=== PATIENT | female | born 1960 | race Caucasian/White ===

== ENCOUNTER → 2017-03-31 | Outpatient (CLI) | payer MEDICARE ==
[~2017-03-31] MED LIST: AZITHROMYCIN500 MG; CARVEDILOL12.5 MG PO; CRESTOR20 MG PO; HUMALOG100 UNIT/3 SC; HYDRALAZINE HCL25 MG PO; LASIX20 MG PO; LEVAQUIN500 MG PO; LEVEMIR100 UNIT/1 SC; LEVEMIR100 UNIT/1 SQ; LEXAPRO10 MG PO; LEXAPRO20 MG PO; LISINOPRIL10 MG PO; METFORMIN HCL1000 MG PO; OTHER BP MED; PREDNISONE20 MG PO; PROAIR HFA INH8.5 GM IH; RANITIDINE HCL75 MG PO
[2017-03-31 14:26] LABS: BASOPHILS % 0.6 % (0.0-1.0); EOSINOPHILS # (AUTO) 0.3 (0.0-0.4); EOSINOPHILS % 4.7 % (0.0-6.0); LYMPHOCYTES # (AUTO) 2.3 (1.0-3.2); LYMPHOCYTES % 35.6 % (18.0-39.1); MEAN CORPUSCULAR HEMOGLOBIN 31.9 pg (28-32); MEAN CORPUSCULAR HGB CONC 34.4 g/dL (31-35); MEAN CORPUSCULAR VOLUME 92.8 fL (81-99); MONOCYTES # (AUTO) 0.8 (0.2-0.8); MONOCYTES % 13.1 % (4.4-11.3); NEUTROPHILS # (AUTO) 2.9 (2.1-6.9); NEUTROPHILS % 45.5 % (38.7-80.0); PLATELET COUNT 267 x10e3/uL (140-360); RED BLOOD COUNT 3.45 x10e6/uL (3.6-5.1); RED CELL DISTRIBUTION WIDTH 13.5 % (11.7-14.4)
[2017-03-31 14:39] LABS: ANION GAP 14.8 mmol/L (8-16); CALCIUM 9.1 mg/dL (8.4-10.2); CREATININE, SERUM 5.19 mg/dL (0.57-1.11); POTASSIUM 3.8 mmol/L (3.5-5.1)
== END ==
LOC: DX 11:39 → EDSTATUS 04-02 07:30
PROVIDERS: ATTEND Surgery
DX: Z01.818 Encounter for other preprocedural examination (principal); Z53.8 Procedure and treatment not carried out for other reasons; C18.2 Malignant neoplasm of ascending colon; N19 Unspecified kidney failure
CPT/HCPCS: 36415; 80048; 85025; 93005

== ENCOUNTER 2017-04-23 06:15 | Inpatient (IN) | payer MEDICARE ==
--- NOTE | 2017-04-22 11:15 | Diagnostic Imaging Report ---
PROCEDURE:CHEST 2 VIEWS TECHNIQUE:PA and lateral chest INDICATION:Preoperative evaluation COMPARISON:None. FINDINGS: Right internal jugular dialysis catheter with tips in the low SVC. Bilateral lower lobe interstitial scar. Lungs otherwise clear. No pleural effusions. Normal heart size, mediastinal contour, and pulmonary vasculature. Intact skeleton. CONCLUSION: No acute abnormality. Dictated by: Juan A Sheets M.D. on 04/22/2017 at 11:15 Electronically approved by: Juan A Sheets M.D. on 04/22/2017 at 11:15
[~2017-04-23] VITALS: Ht 165.1 cm; Wt 83.5 kg
[2017-04-23] VITALS (7 sets, daily range): BP systolic 115–135; BP diastolic 56–64
--- OUTSIDE RECORDS SUMMARY | 2017-04-23 06:18 | XMS REPORT ---
Author Author [facility] Address Unknown Phone Unavailable Care Team Providers Care Costume Shop Coordinator Name Role Phone NATALIE RAY Unavailable Unavailable TSANGBRENDAN Unavailable Unavailable Problems This patient has no known problems. Allergies, Adverse Reactions, Alerts This patient has no known allergies or adverse reactions. Medications This patient has no known medications. Results Test Description Test Time Test Comments Text Results Atomic Results Result Comments CHEST 2 VIEWS [place] [address] Patient Name: YARITZA JOSEPH MR #: [id number] : 1960 Age/Sex: 56/F Req #: [id number] Adm Physician: Ordered by: NATALIE RAY MD Report #: [id number] Location: OR Room/Bed: Procedure: [id number] DX/CHEST 2 VIEWS Exam Date: 04/22/17 Exam Time: 1045 REPORT STATUS: Signed PROCEDURE: CHEST 2 VIEWS TECHNIQUE : PA and lateral chest INDICATION: Preoperative evaluation COMPARISON: None. FINDINGS: Right internal jugular dialysis catheter with tips in the low SVC. Bilateral lower lobe interstitial scar. Lungs otherwise clear. No pleural effusions. Normal heart size, mediastinal contour, and pulmonary vasculature. Intact skeleton. CONCLUSION: No acute abnormality. Dictated by: Maya Sheets M.D. on 04/22/2017 at 11:15 Electronically approved by: Maya Sheets M.D. on 2017 at 11:15 Dictated By: MAYA SHEETS MD 111 Transcribed By: DHIRAJ on 111 COPY TO: NATALIE RAY MD CT ABDOMEN/PELVIS W [place] [address] Patient Name: YARITZA JOSEPH MR #: [id number] : 1960 Age/Sex: 56/F Req #: [id number] Adm Physician: BRENDAN TSANG MD Ordered by: BRENDAN TSANG MD Report #: [id number] Location: MED/SURG Room/Bed: [facility] Procedure: [id number] CT/CT ABDOMEN/PELVIS W Exam Date : 11/27/16 Exam Time: 1746 REPORT STATUS: Signed EXAM: CT Abdomen and Pelvis WITH contrast INDICATION: Abnormal colonoscopy results. Anemia. COMPARISON: None. TECHNIQUE: Abdomen and pelvis were scanned utilizing a multidetector helical scanner from the lung base to the pubic symphysis after administration of IV contrast. Coronal and sagittal reformations were obtained. Routine protocol was performed. Scan was performed when during portal venous phase. IV CONTRAST: 100 cc Isovue-370. ORAL CONTRAST: 30 cc of Gastrografin mixed with water. RADIATION DOSE: Total DLP: 557.11 mGy*cm Estimated effective dose: (DLP x 0.015 x size factor) mSv COMPLICATIONS: None FINDINGS: LINES and TUBES: None. LOWER THORAX : Posterior bibasilar irregular pleural parenchymal densities suggestive of subsegmental atelectasis versus scarring. Trace pleural effusion bilaterally. HEPATOBILIARY: 5 mm low-attenuation lesion in the inferior liver on image 35 series 2 is too small to be characterize, however, statistically most likely benign in etiology. No enhancing hepatic lesions. No biliary ductal dilation. GALLBLADDER: No punctate alkalosis versus punctate wall calcification in the posterior aspect of the gallbladder on image 30 series 2. No wall thickening. SPLEEN: No splenomegaly. PANCREAS: No ductal dilatation. 7 mm fat attenuation lesion in the pancreatic head on image 30 series 2 either focal fatty infiltration or a small lipomatous lesion. ADRENALS: Diffusely enlarged left adrenal gland measuring 5.1 x 3.9 cm in maximal AP and transverse dimensions on image 17 series 2, containing focal areas of low-attenuation, the largest posteriorly located measuring 3.1 x 2.5 cm on images 16 series 2. These are indeterminate. No right adrenal nodules. KIDNEYS/URETERS: Kidneys enhance symmetrically. No hydronephrosis. 1.4 cm low-attenuation lesion exophytic of the lower pole of the right kidney posteriorly on image 41 series 2 suggestive of a mildly complex cyst. 1.6 cm low-attenuation lesion in the anterior cortex of the lower interpolar region of the left kidney on image 33 consistent with a cyst. GI TRACT: No bowel dilatation to suggest obstruction. 2. Polypoid masses are present in the cecum which is somewhat ectopic in the right mid abdomen; they measure 3.4 x 2.8 cm and 3.3 x 2.7 cm. Appendix is unremarkable. PELVIC ORGANS/BLADDER : Small volume of air within nondependent portion of the urinary bladder likely related to recent instrumentation. LYMPH NODES: No lymphadenopathy. VESSELS: Mild atherosclerotic plaque formation throughout the abdominal aorta. PERITONEUM / RETROPERITONEUM: No free air or fluid. BONES: No acute osseous abnormality. No suspicious lesions. SOFT TISSUES: Unremarkable. IMPRESSION: 1. 2 cecal polypoid masses. Correlate with tissue diagnosis. 2. Enlarged left adrenal gland with low-attenuation nodules which are indeterminate; recommend further evaluation with CT of abdomen adrenal protocol. 3. Punctate single gallbladder calculus versus wall calcification. 4. Bilateral trace pleural effusions and bibasilar subsegmental atelectasis. Signed by: Dr. William Hanson M.D. on 9:06 AM Dictated By: JEFF HANSON MD, MD 0906 Transcribed By: FRANCISCO J on 11/28/16905 COPY TO: BRENDAN TSANG MD IR CONSULT [place] [address] Patient Name: YARITZA JOSEPH MR #: [id number] : 1960 Age/Sex: 56/F Req # : [id number] Adm Physician: BRENDAN TSANG MD Ordered by: FRANCIA SAWYER MD Report #: [id number] Location: MED/SURG Room/Bed: [facility] __ Procedure: [id number] DX/IR CONSULT Exam Date: Exam Time: REPORT STATUS: Signed Tunneled Dialysis Catheter Placement November 25, 2016 Pre-Procedure Diagnosis: End-Stage Renal Disease Post-procedure Diagnosis:End-Stage Renal Disease Outside Physical Damage Appraiser: Vidhya Sheets Retail Receiving Clerk: None Sedation: None. Heart rate and oxygen saturation were monitored in real-time. Blood pressure was measured in 5 minute increments. 1% lidocaine was used for local anesthesia. Radiation Dose:84 cGycm2 (Dose Area Product) Fluoroscopy time:0.6 minutes Estimate blood loss: 10 mL Blood administered: None Complications: None Implants/ Grafts: 16 Moldovan 19 cm cuffed tunneled dialysis catheter Specimen: None Procedure: Informed consent was obtained and the patient positioned supine in the fluoroscopy suite. A timeout was performed, followed by preliminary ultrasound of the right internal jugular vein (see findings below) . The right neck and chest were prepped and draped in standard fashion. Using real-time ultrasound guidance a 21 gauge vascular needle was used to access the right internal jugular vein. An image was stored in the electronic medical record. A wire was advanced across the right atrium under fluoroscopy and the needle exchanged for a peel-away sheath. A skin incision was made inferior to the clavicle and the catheter tunneled to the access site. The catheter was then deployed through the peel-away sheath and positioned with the tip at the atriocaval junction/right atrium. At the end of the procedure the catheter was flushed, packed with heparin solution, secured to the skin and a sterile dressing applied. The patient tolerated the procedure well and without immediate complication. Findings: Patent right internal jugular vein as demonstrated by normal ultrasound compressibility. Impression: Successful placement of a tunneled right internal jugular vein dialysis catheter using ultrasound and fluoroscopic guidance. This report was generated with voice-recognition technology. Errors in radio broadcaster can occur. Please interpret accordingly and contact a radiologist if there are any questions regarding the report. Signed by: Dr. Maya Sheets M.D. on 11/25/2016 2:19 PM Dictated By: MAYA SHEETS MD 27 Transcribed By: FRANCISCO J on 11/26/161127 COPY TO: FRANCIA SAWYER MD SPECIAL PROCEDURE IN EMERGENCY WORKER [place] [address] Patient Name: YARITZA JOSEPH MR #: [id number] : 1960 Age/Sex: 56/F Req #: [id number] [facility] Physician: BRENDAN TSANG MD Ordered by: FRANCIA SAWYER MD Report #: [id number] Location: MED/SURG Room/Bed: [facility] Procedure: [id number] IR/SPECIAL PROCEDURE IN EMERGENCY WORKER Exam Date: Exam Time: REPORT STATUS: Signed Tunneled Dialysis Catheter Placement November 25, 2016 Pre-Procedure Diagnosis: End-Stage Renal Disease Post-procedure Diagnosis:End-Stage Renal Disease Outside Physical Damage Appraiser: Vidhya Sheets Retail Receiving Clerk: None Sedation: None. Heart rate and oxygen saturation were monitored in real-time. Blood pressure was measured in 5 minute increments. 1% lidocaine was used for local anesthesia. Radiation Dose:84 cGycm2 (Dose Area Product) Fluoroscopy time:0.6 minutes Estimate blood loss: 10 mL Blood administered: None Complications : None Implants/Grafts: 16 Moldovan 19 cm cuffed tunneled dialysis catheter Specimen: None Procedure: Informed consent was obtained and the patient positioned supine in the fluoroscopy suite. A timeout was performed, followed by preliminary ultrasound of the right internal jugular vein (see findings below). The right neck and chest were prepped and draped in standard fashion. Using real-time ultrasound guidance a 21 gauge vascular needle was used to access the right internal jugular vein. An image was stored in the electronic medical record. A wire was advanced across the right atrium under fluoroscopy and the needle exchanged for a peel-away sheath. A skin incision was made inferior to the clavicle and the catheter tunneled to the access site. The catheter was then deployed through the peel-away sheath and positioned with the tip at the atriocaval junction/right atrium. At the end of the procedure the catheter was flushed, packed with heparin solution, secured to the skin and a sterile dressing applied. The patient tolerated the procedure well and without immediate complication. Findings: Patent right internal jugular vein as demonstrated by normal ultrasound compressibility. Impression: Successful placement of a tunneled right internal jugular vein dialysis catheter using ultrasound and fluoroscopic guidance. This report was generated with voice-recognition technology. Errors in radio broadcaster can occur. Please interpret accordingly and contact a radiologist if there are any questions regarding the report. Signed by: Dr. Maya Sheets M.D. on 11/25/2016 2:19 PM Dictated By : MAYA SHEETS MD 112 Transcribed By: FRANCISCO J on 11/26/161127 COPY TO: FRANCIA SAWYER MD [facility] (PORTABLE) [place] [address] Patient Name: YARITZA JOSEPH MR #: [id number] : 1960 Age/Sex: 56/F Req #: [id number] Adm Physician: BRENDAN TSANG MD Ordered by: SLAVA PATEL MD Report #: [id number] Location: ICU Room/Bed: ICU 194 _ Procedure: [id number] DX/CHEST SINGLE (PORTABLE) Exam Date : 11/18/16 Exam Time: 0455 REPORT STATUS: Signed EXAM: CHEST SINGLE (PORTABLE), AP 1 view DATE: 11/18/2016 5:00 AM Time stamp on exam: 0503 hours INDICATION: Congestive heart failure COMPARISON: AP view of the chest November 17, 2016 FINDINGS: LINES/TUBES: Stable position of right internal jugular vein central line. LUNGS: Central vascular congestion and mild interstitial edema. PLEURA: Suspected small effusion on the left HEART AND MEDIASTINUM: Stable appearance. BONES AND SOFT TISSUES: No acute findings. IMPRESSION: No significant interval change. Signed by: Dr. Louise Hatfield M.D. on 11/18/2016 6:33 AM Dictated By: LOUISE HATFIELD MD 2 Transcribed By: FRANCISCO J on 632 COPY TO: SLAVA PATEL MD CHEST SINGLE (PORTABLE) [place] [address] Patient Name: YARITZA JOSEPH MR #: [id number] : 1960 Age/Sex: 56/F Req #: [id number] Adm Physician: BRENDAN TSANG MD Ordered by: SLAVA PATEL MD Report #: [id number] Location: ICU Room/Bed: ICU [facility] _ Procedure: [id number] DX/CHEST SINGLE (PORTABLE) Exam Date : 11/17/16 Exam Time: 0535 REPORT STATUS: Signed EXAM: CHEST SINGLE (PORTABLE), AP 1 view DATE: 11/17/2016 5:00 AM Time stamp on exam: 0539 hours INDICATION: CHF COMPARISON: AP view of the chest November 15, 2016 FINDINGS: LINES/TUBES: Interval placement of right internal jugular vein central line that terminates at the expected location of the mid superior vena cava. LUNGS: Central vascular congestion and mild interstitial edema. PLEURA: Suspected layering bilateral pleural effusions. HEART AND MEDIASTINUM: Stable mild cardiomegaly. BONES AND SOFT TISSUES: No acute findings. IMPRESSION: Stable findings of mild fluid overload with cardiomegaly, interstitial edema, vascular congestion and likely small bilateral layering pleural effusions. Signed by: Dr. Louise Hatfield M.D. on 11/17/2016 6:28 AM Dictated By: LOUISE HATFIELD MD 7 Transcribed By : FRANCISCO J on 11/17/16627 COPY TO: SLAVA PATEL MD RENAL RETROPERITONEAL COMP [place] [address] Patient Name: YARITZA JOSEPH MR #: [id number] : 1960 Age/Sex: 56/F Req #: [id number] Adm Physician: BRENDAN TSANG MD Ordered by: FRANCIA SAWYER MD Report #: [id number] Location: ICU Room/Bed: ICU 194 _ Procedure: [id number] US/US RENAL RETROPERITONEAL COMP Exam Date: 11/17/16 Exam Time: 1957 REPORT STATUS: Signed EXAM: Renal Ultrasound DATE: 11/17/2016 12:00 AM Time stamp on exam: 1918 hours INDICATION: Anemia, hypertensive COMPARISON: None TECHNIQUE: Transverse and longitudinal sonographic images of the kidneys and bladder were obtained. FINDINGS: RIGHT KIDNEY: 11.3 x 4.1 x 3.9 cm, normal cortical thickness. Echogenicity: Normal Hydronephrosis: None Calculi: None Cyst/Mass: Simple cyst in the inferior pole measuring 1.6 x 1.1 x 1.1 cm LEFT KIDNEY: 10.9 x 4.8 x 5.1 cm, normal cortical thickness. Echogenicity: Normal Hydronephrosis: None Calculi: None Cyst/Mass: Simple cyst in the inferior pole measuring 1.4 x 1.3 x 1.3 cm. There is an anechoic nonvascular structure measuring 4 x 3.6 x 4.3 cm between the superior pole of the left kidney and the spleen. This could be an exophytic renal cyst or pancreatic tail cyst. BLADDER: Decompressed with Cordova catheter. IMPRESSION: Normal sonographic appearance of the kidneys with simple cysts bilaterally. There is an anechoic nonvascular structure measuring 4 x 3.6 x 4.3 cm between the superior pole of the left kidney and the spleen. This could be an exophytic renal cyst or pancreatic tail cyst. Signed by: Dr. Louise Hatfield M.D. on 11/17/2016 8:09 PM Dictated By: LOUISE HATFIELD MD 08 Transcribed By : FRANCISCO J on 11/17/162008 COPY TO: FRANCIA SAWYER MD IR CONSULT [place] [address] Patient Name: YARITZA JOSEPH MR #: [id number] : 1960 Age/Sex: 56/F Req # : [id number] Adm Physician: BRENDAN TSANG MD Ordered by: FRANCIA SAWYER MD Report #: [id number] Location: ICU Room/Bed: ICU [facility] _ Procedure: [id number] DX/IR CONSULT Exam Date: Exam Time: REPORT STATUS: Signed PROCEDURE: FLUORO GUIDANCE DEE SO PLACEMENT COMPARISON: None. INDICATIONS: HD TRIALYSIS CATH FINDINGS: The right IJ was patent. Utilizing ultrasound for vascular access puncture of the right internal jugular vein was accomplished with a 21 gauge skinny needle following sterile preparation and local anesthesia with 1% Xylocaine. A 0.018 " wire was then placed through the needle under fluoroscopic guidance. Micropuncture sheath was placed over the skinny wire. A 0.035 " Amplatz superstiff wire was then placed through the micropuncture sheath. Serial dilatation was accomplished. A 13 Moldovan 15 cm long temporary triple-lumen Trialysis catheter was then placed under fluoroscopic guidance. Tip is located in the SVC. Catheter is OK for immediate use. Fluoroscopy time: 0.5 minutes Total dose: 1.43 mGy CONCLUSION: Successful placement of a triple lumen temporary hemodialysis catheter utilizing ultrasound and fluoroscopic guidance. Melchor Lucia D.O. Dictated by: Melchor Lucia D.O. on 11/16/2016 at 16:09 Electronically approved by: Melchor Lucia D.O. on 11/16/2016 at 16:09 Dictated By: MELCHOR LUCIA DO 08 Transcribed By: DHIRAJ on 11/16/16 7886 COPY TO: FRANCIA SAWYER MD [facility] [place] [address] Patient Name: YARITZA JOSEPH MR #: [id number] : 1960 Age/Sex: 56/F Req #: [id number] Adm Physician: BRENDAN TSANG MD Ordered by: ROCKY CABEZAS MD Report #: [id number] Location: [facility] Room/Bed: [place] [address] Procedure: [id number] DX/CHEST SINGLE (PORTABLE) Exam Date: 11/16/16 Exam Time: 0800 REPORT STATUS: Signed EXAMINATION: Chest, CHEST SINGLE (PORTABLE) INDICATION: Chest pain COMPARISON: Portable chest 11/15/2016 FINDINGS: LINES: None. Heart: Normal cardiac silhouette. Vascular: The pulmonary vasculature is within normal limits. Atherosclerotic calcifications of the aortic arch. Mediastinum: No mediastinal, hilar, or axillary mass or lymphadenopathy. Lungs: No parenchymal mass. No focal consolidation. Bibasilar atelectasis. Pleura: No pleural effusion. No pneumothorax. Bones: No acute osseous abnormality. Degenerative changes of the thoracic spine. Soft tissues: Normal. Impression: No acute radiographic abnormality. Signed by: Dr. Nathan Lee M.D. on 2016 8:32 AM Dictated By: NATHAN LEE MD 1 Transcribed By: FRANCISCO J on 11/16/16831 COPY TO: ROCKY CABEZAS MD GUIDANCE FOR VASCULAR ACCES [place] [address] Patient Name: YARITZA JOSEPH MR #: [id number] : 1960 Age/Sex: 56/F Req #: [id number] Adm Physician: BRENDAN TSANG MD Ordered by: FRANCIA SAWYER MD Report #: [id number] Location: ICU Room/Bed: ICU 194-1 _ Procedure: [id number] US/US GUIDANCE FOR VASCULAR ACCES Exam Date: 11/16/16 Exam Time: 1430 REPORT STATUS: Signed PROCEDURE: ULTRASOUND GUIDANCE FOR VASCULAR ACCESS COMPARISON: None. INDICATIONS: Patient in need of IV access and temporary hemodialysis. FINDINGS: The right internal jugular vein is noted to be patent. Ultrasound guidance was utilized for access for Trialysis catheter placement. CONCLUSION: Patent right internal jugular vein. Successful ultrasound guidance for PICC triple lumen temporary hemodialysis catheter placement. Melchor Lucia D.O. Dictated by: Melchor Lucia D.O. on 11/16/2016 at 15:28 Electronically approved by: Melchor Lucia D.O. on 11/16/2016 at 15:28 Dictated By: MELCHOR LUCIA DO 1528 Transcribed By: DHIRAJ on 11/16/16 1528 COPY TO: FRANCIA SAWYER MD FLUORO GUIDANCE DEE SO PL/REM [place] [address] Patient Name: YARITZA JOSEPH MR #: [id number] : 1960 Age/Sex: 56/F Req #: [id number] Adm Physician: BRENDAN TSANG MD Ordered by: BRENDAN TSANG MD Report #: [id number] Location: ICU Room/Bed: ICU 194- Procedure: [id number] DX/FLUORO GUIDANCE DEE SO PL/REM Exam Date: 11/16/16 Exam Time: 1440 REPORT STATUS: Signed PROCEDURE: FLUORO GUIDANCE DEE SO PLACEMENT COMPARISON: None. INDICATIONS: HD TRIALYSIS CATH FINDINGS: The right IJ was patent. Utilizing ultrasound for vascular access puncture of the right internal jugular vein was accomplished with a 21 gauge skinny needle following sterile preparation and local anesthesia with 1% Xylocaine. A 0.018 " wire was then placed through the needle under fluoroscopic guidance. Micropuncture sheath was placed over the skinny wire. A 0.035 " Amplatz superstiff wire was then placed through the micropuncture sheath. Serial dilatation was accomplished. A 13 Moldovan 15 cm long temporary triple- lumen Trialysis catheter was then placed under fluoroscopic guidance. Tip is located in the SVC. Catheter is OK for immediate use. Fluoroscopy time : 0.5 minutes Total dose: 1.43 mGy CONCLUSION: Successful placement of a triple lumen temporary hemodialysis catheter utilizing ultrasound and fluoroscopic guidance. Melchor Lucia D.O. Dictated by: Melchor Lucia D.O. on 11/16/2016 at 16:09 Electronically approved by: Melchor Lucia D.O. on 11/16/2016 at 16:09 Dictated By: MELCHOR LUCIA DO 160 COPY TO: BRENDAN TSANG MD CHEST SINGLE (PORTABLE) [place] [address] Patient Name: YARITZA JOSEPH MR #: [id number] : 1960 Age/Sex: 56/F Req #: [id number] Adm Physician: Ordered by: NAFISA LARES MD Report #: [id number] Location: ER Room/Bed: ___ Procedure: [id number] DX/CHEST SINGLE (PORTABLE) Exam Date: 11/15/16 Exam Time: 2129 REPORT STATUS: Signed EXAM: CHEST SINGLE (PORTABLE), AP 1 view DATE: 11/15/2016 9:14 PM Time stamp on exam : 2126 hours INDICATION: Shortness of breath COMPARISON: AP view of the chest September 05, 2015 FINDINGS: LINES/TUBES: None LUNGS: Interval development of interstitial edema. PLEURA: Suspected layering pleural effusions. HEART AND MEDIASTINUM: Slight increase in cardiac diameter. Increased central vascular congestion. BONES AND SOFT TISSUES: No acute findings. IMPRESSION: Findings of fluid overload including cardiomegaly and interstitial edema. Signed by: Dr. Louise Hatfield M.D. on 11/15/2016 9:48 PM Dictated By: LOUISE HATFIELD MD 47 Transcribed By: FRANCISCO J on 11/15/162147 COPY TO: NAFISA LARES MD
[2017-04-23] MEDS ORDERED: SODIUM CHLORIDE 0.9% 500ML 500 ML ONE (06:26)
--- NOTE | 2017-04-23 10:56 | Operative Report ---
DATE OF PROCEDURE: April 23, 2017 PREOPERATIVE DIAGNOSIS: Carcinoma of the ascending colon. POSTOPERATIVE DIAGNOSIS: Carcinoma of the ascending colon. OPERATIONS PERFORMED 1. Exploratory laparotomy. 2. Right hemicolectomy. MULTIMEDIA INSTRUCTIONAL DESIGNER: Dr. Yuniel Gutierrez and ALISA Campbell. ANESTHESIA: General. COMPLICATIONS: None. ESTIMATED BLOOD LOSS: Minimal. DESCRIPTION OF PROCEDURE: With the patient lying in bed in the supine position under good general endotracheal anesthesia, the abdomen was prepped with Betadine solution and draped in the usual manner. A midline incision was made. It was carried down through the subcutaneous tissue and through the midline fascia. Peritoneum was opened and the abdomen was entered. Upon entering the abdominal cavity, exploration revealed a mass in the ascending colon, which appeared to have some degree of penetration to the level of the serosa. It was not stuck to any surrounding structures. There liver was clean of any metastatic disease. There was some enlarged lymph nodes in the right hepatic distribution. Otherwise, the rest of the abdominal exploration was within normal limits. The right colon was then mobilized off of the lateral gutter and brought up medially. The duodenum was identified and preserved, and from the right colon. The colon was then the divided at the midtransverse colon with an application of the CHYNA-75 stapler. The terminal ileum was similarly divided with an application of a CHYNA-75 stapler. The mesentery of the colon was then divided using the In-Seal device with the right hepatic being ligated with an 0 silk tie. The entire specimen was resected and sent for pathological examination. The anastomosis was then performed with another application of the CHYNA-75 stapler. The remaining opening was closed with a TIA-60 stapler. Gloves and instruments were changed. The anastomosis was then reinforced with 3-0 silk. The mesenteric rent was closed with a running suture of 2-0 Vicryl. The whole area was thoroughly irrigated. Perfect hemostasis was ascertained. All the excess fluid was aspirated, and the abdomen was then closed in layers. The peritoneum was closed with a running suture of #1 Vicryl. The midline fascia was closed with a running suture of #1 Vicryl, and the skin was closed with clips. Dressing was applied. The sponge, lap and needle count was correct. The patient tolerated the procedure well, and returned to the recovery room in stable condition. Job#: [id number] [place]
[2017-04-23] MEDS ORDERED: HYDROMORPHONE 1MG/1ML INJ ONE ×2 (10:59→12:37)
[2017-04-23] MEDS: INSULIN REGULAR, HUMAN 100 UNIT/1 ML 3ML VIAL SQ SCH ×5 (12:00→21:00)
[2017-04-23] MEDS ORDERED: CEFOXITIN 1GM/ DEXTROSE 50ML 50 ML IV SCH (12:00)
[2017-04-23] MEDS: SODIUM CHLORIDE 0.9% 1000ML 1,000 ML IV SCH (12:41)
[2017-04-23] MEDS: CEFOXITIN SOD 1 GM VIAL IV SCH ×2 (12:41→17:24)
[2017-04-23] MEDS: PANTOPRAZOLE 40 MG 10ML VIAL IV SCH (12:41)
[2017-04-23] MEDS: SODIUM CHLORIDE 0.9% 250ML IRRIG IR SCH ×4 (12:41→22:17)
[2017-04-23] MEDS: ACETAMINOPHEN 1000 MG/100 ML IV PRN (12:51)
--- NOTE | 2017-04-23 13:45 | Consultation ---
DATE OF CONSULTATION: April 23, 2017 RENAL CONSULT HISTORY OF PRESENT ILLNESS: This is a 56-year-old female with end-stage renal disease, who was admitted for hemicolectomy. Last dialysis was yesterday. I just saw her. She is status post surgery, alert, oriented, slightly sleepy. PAST MEDICAL HISTORY: Includes 1. ESRD. 2. Colon cancer. 3. COPD. 4. Active smoking. 5. Adrenal mass. 6. Stroke in August 2016. 7. Hypertension. 8. Type 2 diabetes mellitus. 9. Depression. 10. Hypertriglyceridemia. PAST SURGICAL HISTORY 1. Line placement. 2. Today, hemicolectomy. ALLERGIES: NO KNOWN DRUG ALLERGIES. FAMILY HISTORY: Diabetes and CVA. REVIEW OF SYSTEMS: Unable to get from the patient. PHYSICAL EXAMINATION GENERAL: Alert, following command. HEENT: Pupils equal, reactive to light and accommodation. NECK: No JVD, no bruit. LUNGS: No rhonchi, no rales. HEART: Regular rate and rhythm. No S3, no S4. ABDOMEN: Positive tenderness status post surgery. EXTREMITIES: No clubbing, no cyanosis, no edema. NEUROLOGICAL: Cranial nerves 2-12 grossly intact. Sensation intact. Motor intact. VITAL SIGNS: Blood pressure 150/74. LABS: Pending. ASSESSMENT AND PLAN 1. End-stage renal disease. Will schedule the patient for dialysis tomorrow. 2. Anemia of chronic disease, awaiting her hemoglobin and will start her on Epogen as needed. 3. Status post hemicolectomy. 4. Hypertension, currently stable. 5. Type 2 diabetes mellitus. Will monitor her glucose. Job#: [id number] EV
[2017-04-23] MEDS ORDERED: DEXTROSE 50% SYRINGE 50 ML IV PRN (14:00)
[2017-04-23] MEDS: ONDANSETRON HCL INJ 2 MG/ML VIAL IV PRN ×3 (14:01→22:14)
[2017-04-23] MEDS: HYDROMORPHONE 1MG/1ML INJ IV PRN ×3 (14:02→22:14)
[2017-04-23] MEDS ORDERED: ESMOLOL HCL 100MG/10ML 10 MG/ML VIAL ONE (17:30)
[2017-04-23] MEDS ORDERED: NEOSTIGMINE 5 MG/5ML SYR ONE (17:30)
[2017-04-23] MEDS ORDERED: LIDOCAINE HCL 2% LOCAL INJ 5 ML SDV VIAL INJ ONE (17:30)
[2017-04-23] MEDS ORDERED: PROPOFOL IV EMULSION 10 MG/ML 20 ML VIAL ONE (17:30)
[2017-04-23] MEDS ORDERED: CEFOXITIN SOD 1 GM VIAL ONE (17:30)
[2017-04-23] MEDS ORDERED: SEVOFLURANE INHAL SOLN 250 ML PEN BTL ONE (17:30)
[2017-04-23] MEDS ORDERED: GLYCOPYRROLATE INJ 1MG/ 5 ML SYR ONE (17:30)
[2017-04-23] MEDS ORDERED: EPHEDRINE SULFATE INJ 50 MG/10 ML SYR ONE (17:30)
[2017-04-23] MEDS ORDERED: ONDANSETRON HCL INJ 2 MG/ML VIAL ONE (17:30)
[2017-04-23] MEDS ORDERED: ROCURONIUM BROMIDE 10 MG/ML 5ML VIAL ONE (17:30)
[2017-04-23] MEDS ORDERED: PHENYLEPHRINE HCL 1% 10 MG/ML VIAL ONE (17:30)
[2017-04-23] MEDS ORDERED: FENTANYL CITRATE/PF 100MCG/2 ML INJ ONE (17:44)
[2017-04-24] MEDS: SODIUM CHLORIDE 0.9% 250ML IRRIG IR SCH ×6 (02:15→22:51)
[2017-04-24] MEDS: ONDANSETRON HCL INJ 2 MG/ML VIAL IV PRN ×2 (03:20→11:30)
[2017-04-24] MEDS: HYDROMORPHONE 1MG/1ML INJ IV PRN ×4 (03:21→22:58)
[2017-04-24 04:15] VITALS: BP 138/64
[2017-04-24] MEDS: ACETAMINOPHEN 1000 MG/100 ML IV PRN (05:22)
[2017-04-24] MEDS: SODIUM CHLORIDE 0.9% 1000ML 1,000 ML IV SCH (06:06)
[2017-04-24 06:43] LABS: BASOPHILS % 0.2 % (0.0-1.0); EOSINOPHILS % 0.4 % (0.0-6.0); HEMATOCRIT 32.1 % (34.2-44.1); HEMOGLOBIN 10.1 g/dL (12.0-16.0); LYMPHOCYTES # (AUTO) 1.1 (1.0-3.2); LYMPHOCYTES % 12.8 % (18.0-39.1); MEAN CORPUSCULAR HEMOGLOBIN 31.8 pg (28-32); MEAN CORPUSCULAR HGB CONC 31.5 g/dL (31-35); MEAN CORPUSCULAR VOLUME 100.9 fL (81-99); MONOCYTES % 12.3 % (4.4-11.3); NEUTROPHILS # (AUTO) 6.1 (2.1-6.9); NEUTROPHILS % 74.2 % (38.7-80.0); PLATELET COUNT 300 x10e3/uL (140-360); RED BLOOD COUNT 3.18 x10e6/uL (3.6-5.1); RED CELL DISTRIBUTION WIDTH 13.6 % (11.7-14.4)
[2017-04-24 07:08] LABS: ANION GAP 11.5 mmol/L (8-16); CALCIUM 7.3 mg/dL (8.4-10.2); CREATININE, SERUM 5.68 mg/dL (0.57-1.11); POTASSIUM 5.5 mmol/L (3.5-5.1)
[2017-04-24] MEDS: INSULIN REGULAR, HUMAN 100 UNIT/1 ML 3ML VIAL SQ SCH ×4 (07:30→20:44)
[2017-04-24 08:07] VITALS: BP 158/80
[2017-04-24 08:09] VITALS: BP 158/80
[2017-04-24] MEDS: PANTOPRAZOLE 40 MG 10ML VIAL IV SCH (08:28)
[2017-04-24 12:11] VITALS: BP 167/76
[2017-04-24 15:54] VITALS: BP 164/75
[2017-04-24] MEDS ORDERED: HYDRALAZINE HCL 20 MG/ML VIAL IV PRN (17:45)
[2017-04-24] MEDS ORDERED: HEPARIN SOD (PORCINE) 1000 UNIT/ML SDV IV PRN (18:00)
[2017-04-24] MEDS ORDERED: SODIUM CHLORIDE 0.9% 1000ML 2,000 ML IV PRN (18:00)
[2017-04-24 20:00] VITALS: BP 136/71
[2017-04-24] MEDS ORDERED: CLONIDINE HCL 0.1 MG/24 HR 1 EA PATCH TOP SCH (22:15)
[2017-04-25] VITALS (7 sets, daily range): BP systolic 130–198; BP diastolic 64–97
[2017-04-25] MEDS: SODIUM CHLORIDE 0.9% 250ML IRRIG IR SCH ×6 (02:09→21:49)
[2017-04-25] MEDS: HYDRALAZINE HCL 20 MG/ML VIAL IV PRN ×2 (02:14→04:57)
[2017-04-25] MEDS: SODIUM CHLORIDE 0.9% 1000ML 1,000 ML IV SCH (03:44)
[2017-04-25] MEDS: HYDROMORPHONE 1MG/1ML INJ IV PRN ×3 (05:19→17:52)
[2017-04-25] MEDS: ONDANSETRON HCL INJ 2 MG/ML VIAL IV PRN ×3 (05:19→17:52)
[2017-04-25 06:41] LABS: BASOPHILS % 0.3 % (0.0-1.0); EOSINOPHILS % 0.2 % (0.0-6.0); HEMATOCRIT 33.8 % (34.2-44.1); HEMOGLOBIN 10.7 g/dL (12.0-16.0); LYMPHOCYTES # (AUTO) 1.2 (1.0-3.2); LYMPHOCYTES % 10.3 % (18.0-39.1); MEAN CORPUSCULAR HEMOGLOBIN 31.5 pg (28-32); MEAN CORPUSCULAR HGB CONC 31.7 g/dL (31-35); MEAN CORPUSCULAR VOLUME 99.4 fL (81-99); MONOCYTES # (AUTO) 1.3 (0.2-0.8); MONOCYTES % 10.5 % (4.4-11.3); NEUTROPHILS # (AUTO) 9.3 (2.1-6.9); NEUTROPHILS % 78.3 % (38.7-80.0); PLATELET COUNT 358 x10e3/uL (140-360); RED CELL DISTRIBUTION WIDTH 13.3 % (11.7-14.4)
[2017-04-25 07:09] LABS: ANION GAP 20.3 mmol/L (8-16); CALCIUM 8.7 mg/dL (8.4-10.2); CREATININE, SERUM 4.39 mg/dL (0.57-1.11); POTASSIUM 4.3 mmol/L (3.5-5.1)
[2017-04-25] MEDS ORDERED: METOPROLOL TARTRATE INJ 1 MG/ML VIAL ONE (07:30)
[2017-04-25] MEDS ORDERED: METOPROLOL TARTRATE INJ 1 MG/ML VIAL IV ONE (07:30)
[2017-04-25] MEDS: NICOTINE 21 MG/EA PATCH TOP SCH (10:25)
[2017-04-25] MEDS: PANTOPRAZOLE 40 MG 10ML VIAL IV SCH (10:25)
[2017-04-25] MEDS: INSULIN REGULAR, HUMAN 100 UNIT/1 ML 3ML VIAL SQ SCH ×4 (10:27→20:51)
--- NOTE | 2017-04-25 11:16 | Diagnostic Imaging Report ---
PROCEDURE: A single AP view of the chest. COMPARISON: 04/22/17 INDICATIONS: COPD FINDINGS: Lines/tubes: Unchanged right internal jugular dialysis catheter. Nasogastric tube in place with tip extending beyond the inferior margin of the film. Lungs: The lungs are well inflated. Pulmonary vascular congestion. Pleura: There is no pneumothorax. Small right and trace left pleural effusions. Heart and mediastinum: The cardiomediastinal silhouette is enlarged. Bones: No acute bony abnormality. IMPRESSION: Enlarged cardiomediastinal silhouette, pulmonary vascular congestion, small right, and trace left pleural effusions. The right pleural effusion has increased from prior exam. Underlying infiltrate in the right lower lung field cannot be excluded. Dictated by: Dave Markham M.D. on 04/25/2017 at 11:15 Electronically approved by: Dave Markham M.D. on 04/25/2017 at 11:15
[2017-04-25] MEDS: METOPROLOL TARTRATE INJ 1 MG/ML VIAL IV SCH ×2 (11:32→17:08)
[2017-04-25] MEDS: BISACODYL 10 MG SUPP PR SCH (21:49)
[2017-04-25] MEDS: METOPROLOL TARTRATE INJ 1 MG/ML VIAL IV PRN (22:15)
[2017-04-26] VITALS (8 sets, daily range): BP systolic 168–208; BP diastolic 74–124
[2017-04-26] MEDS: HYDROMORPHONE 1MG/1ML INJ IV PRN (00:51)
[2017-04-26] MEDS: METOPROLOL TARTRATE INJ 1 MG/ML VIAL IV SCH ×4 (00:51→17:54)
[2017-04-26 01:39] LABS: BASOPHILS % 0.2 % (0.0-1.0); EOSINOPHILS % 0.3 % (0.0-6.0); HEMATOCRIT 30.3 % (34.2-44.1); LYMPHOCYTES # (AUTO) 0.6 (1.0-3.2); LYMPHOCYTES % 5.9 % (18.0-39.1); MEAN CORPUSCULAR HEMOGLOBIN 32.1 pg (28-32); MEAN CORPUSCULAR VOLUME 97.1 fL (81-99); MONOCYTES # (AUTO) 1.1 (0.2-0.8); MONOCYTES % 10.4 % (4.4-11.3); NEUTROPHILS # (AUTO) 8.8 (2.1-6.9); NEUTROPHILS % 82.6 % (38.7-80.0); PLATELET COUNT 279 x10e3/uL (140-360); RED BLOOD COUNT 3.12 x10e6/uL (3.6-5.1); RED CELL DISTRIBUTION WIDTH 13.4 % (11.7-14.4)
[2017-04-26] MEDS: ONDANSETRON HCL INJ 2 MG/ML VIAL IV PRN (01:45)
[2017-04-26 02:00] LABS: CALCIUM 9.5 mg/dL (8.4-10.2); CREATININE, SERUM 6.18 mg/dL (0.57-1.11)
[2017-04-26 02:06] LABS: ABG PCO2 44 mmHg (41-51); ABG PH 7.42 (7.31-7.41); ABG PO2 56 mmHg (80-105)
[2017-04-26 02:07] LABS: ABG HCO3 29 mmol/L (23-28)
[2017-04-26] MEDS: SODIUM CHLORIDE 0.9% 250ML IRRIG IR SCH ×2 (02:15→04:52)
[2017-04-26] MEDS: METOPROLOL TARTRATE INJ 1 MG/ML VIAL IV PRN ×3 (03:56→20:56)
[2017-04-26] MEDS ORDERED: CLONIDINE HCL 0.3MG/24 HR PATCH TOP SCH (06:00)
[2017-04-26] MEDS ORDERED: CLONIDINE HCL 0.2 MG/24 HR 1 EA PATCH TOP SCH ×2 (06:00→11:45)
[2017-04-26] MEDS ORDERED: CLONIDINE HCL 0.1 MG/24 HR 1 EA PATCH TOP SCH (06:00)
[2017-04-26] MEDS ORDERED: MORPHINE SULFATE 2 MG/ML SYR ONE ×3 (08:05→21:57)
[2017-04-26] MEDS: MORPHINE SULFATE 4 MG/ML SYR IV PRN ×3 (08:11→21:56)
[2017-04-26] MEDS: BISACODYL 10 MG SUPP PR SCH ×2 (08:35→20:55)
[2017-04-26] MEDS: PANTOPRAZOLE 40 MG 10ML VIAL IV SCH (08:35)
[2017-04-26] MEDS: NICOTINE 21 MG/EA PATCH TOP SCH (08:35)
[2017-04-26] MEDS: INSULIN REGULAR, HUMAN 100 UNIT/1 ML 3ML VIAL SQ SCH ×4 (08:38→20:55)
[2017-04-26 09:42] LABS: BASOPHILS % 0.1 % (0.0-1.0); EOSINOPHILS % 0.1 % (0.0-6.0); HEMATOCRIT 26.8 % (34.2-44.1); HEMOGLOBIN 8.7 g/dL (12.0-16.0); LYMPHOCYTES # (AUTO) 0.8 (1.0-3.2); LYMPHOCYTES % 9.5 % (18.0-39.1); MEAN CORPUSCULAR HEMOGLOBIN 31.6 pg (28-32); MEAN CORPUSCULAR HGB CONC 32.5 g/dL (31-35); MEAN CORPUSCULAR VOLUME 97.5 fL (81-99); MONOCYTES # (AUTO) 0.8 (0.2-0.8); NEUTROPHILS # (AUTO) 6.5 (2.1-6.9); NEUTROPHILS % 79.9 % (38.7-80.0); PLATELET COUNT 266 x10e3/uL (140-360); RED BLOOD COUNT 2.75 x10e6/uL (3.6-5.1); RED CELL DISTRIBUTION WIDTH 13.3 % (11.7-14.4)
[2017-04-26 09:59] LABS: ALBUMIN 2.5 g/dL (3.5-5.0); ALBUMIN/GLOBULIN RATIO 0.7 (0.8-2.0); ANION GAP 16.1 mmol/L (8-16); CREATININE, SERUM 6.83 mg/dL (0.57-1.11); POTASSIUM 4.1 mmol/L (3.5-5.1)
[2017-04-26] MEDS ORDERED: HYDRALAZINE HCL 20 MG/ML VIAL IV SCH (11:55)
[2017-04-27] VITALS (8 sets, daily range): BP systolic 120–172; BP diastolic 62–93
[2017-04-27] MEDS: METOPROLOL TARTRATE INJ 1 MG/ML VIAL IV SCH ×4 (00:16→17:22)
[2017-04-27] MEDS: HYDROCODONE/APAP 7.5MG-325MG 1 EA TAB PO PRN ×4 (00:30→21:48)
[2017-04-27] MEDS: BISACODYL 10 MG SUPP PR SCH (08:26)
[2017-04-27] MEDS: NICOTINE 21 MG/EA PATCH TOP SCH (08:26)
[2017-04-27] MEDS: METOPROLOL TARTRATE INJ 1 MG/ML VIAL IV PRN (08:27)
[2017-04-27] MEDS: INSULIN REGULAR, HUMAN 100 UNIT/1 ML 3ML VIAL SQ SCH ×4 (08:35→21:05)
[2017-04-27] MEDS: PANTOPRAZOLE 40 MG 10ML VIAL IV SCH (08:35)
[2017-04-27] MEDS: NIFEDIPINE CR 30 MG TAB PO SCH (08:39)
[2017-04-27 08:58] LABS: BASOPHILS % 0.6 % (0.0-1.0); EOSINOPHILS # (AUTO) 0.2 (0.0-0.4); EOSINOPHILS % 4.5 % (0.0-6.0); HEMATOCRIT 30.2 % (34.2-44.1); HEMOGLOBIN 9.6 g/dL (12.0-16.0); LYMPHOCYTES # (AUTO) 1.1 (1.0-3.2); LYMPHOCYTES % 23.4 % (18.0-39.1); MEAN CORPUSCULAR HEMOGLOBIN 31.6 pg (28-32); MEAN CORPUSCULAR HGB CONC 31.8 g/dL (31-35); MEAN CORPUSCULAR VOLUME 99.3 fL (81-99); MONOCYTES # (AUTO) 0.8 (0.2-0.8); MONOCYTES % 17.7 % (4.4-11.3); NEUTROPHILS # (AUTO) 2.5 (2.1-6.9); NEUTROPHILS % 53.6 % (38.7-80.0); PLATELET COUNT 280 x10e3/uL (140-360); RED BLOOD COUNT 3.04 x10e6/uL (3.6-5.1); RED CELL DISTRIBUTION WIDTH 13.2 % (11.7-14.4)
[2017-04-27] MEDS ORDERED: NIFEDIPINE CR 30 MG TAB PO SCH (09:00)
[2017-04-27 09:25] LABS: CALCIUM 9.3 mg/dL (8.4-10.2); CREATININE, SERUM 5.09 mg/dL (0.57-1.11)
[2017-04-27] MEDS: MORPHINE SULFATE 4 MG/ML SYR IV PRN (15:37)
[2017-04-27] MEDS: HYDRALAZINE HCL 25 MG TAB PO SCH ×2 (15:37→21:02)
[2017-04-27] MEDS ORDERED: MORPHINE SULFATE 2 MG/ML SYR ONE (15:38)
[2017-04-27] MEDS: CARVEDILOL 12.5 MG TAB PO SCH (17:14)
[2017-04-28] VITALS (8 sets, daily range): BP systolic 99–128; BP diastolic 57–65
[2017-04-28] MEDS: METOPROLOL TARTRATE INJ 1 MG/ML VIAL IV SCH ×4 (06:00→16:29)
[2017-04-28] MEDS: HYDROCODONE/APAP 7.5MG-325MG 1 EA TAB PO PRN ×2 (06:07→17:12)
[2017-04-28 06:38] LABS: BASOPHILS % 0.8 % (0.0-1.0); EOSINOPHILS # (AUTO) 0.3 (0.0-0.4); HEMATOCRIT 29.3 % (34.2-44.1); HEMOGLOBIN 9.8 g/dL (12.0-16.0); LYMPHOCYTES # (AUTO) 1.1 (1.0-3.2); LYMPHOCYTES % 22.4 % (18.0-39.1); MEAN CORPUSCULAR HGB CONC 33.4 g/dL (31-35); MEAN CORPUSCULAR VOLUME 95.8 fL (81-99); MONOCYTES # (AUTO) 0.7 (0.2-0.8); MONOCYTES % 14.9 % (4.4-11.3); NEUTROPHILS # (AUTO) 2.8 (2.1-6.9); NEUTROPHILS % 56.7 % (38.7-80.0); PLATELET COUNT 320 x10e3/uL (140-360); RED BLOOD COUNT 3.06 x10e6/uL (3.6-5.1); RED CELL DISTRIBUTION WIDTH 13.2 % (11.7-14.4)
[2017-04-28 07:04] LABS: ANION GAP 15.1 mmol/L (8-16); CALCIUM 9.1 mg/dL (8.4-10.2); CREATININE, SERUM 6.83 mg/dL (0.57-1.11); POTASSIUM 4.1 mmol/L (3.5-5.1)
[2017-04-28] MEDS: INSULIN REGULAR, HUMAN 100 UNIT/1 ML 3ML VIAL SQ SCH ×3 (07:50→16:30)
[2017-04-28] MEDS: NIFEDIPINE CR 30 MG TAB PO SCH (08:36)
[2017-04-28] MEDS: PANTOPRAZOLE 40 MG 10ML VIAL IV SCH (08:36)
[2017-04-28] MEDS: NICOTINE 21 MG/EA PATCH TOP SCH (08:36)
[2017-04-28] MEDS: HYDRALAZINE HCL 25 MG TAB PO SCH ×2 (08:36→14:17)
[2017-04-28] MEDS: CARVEDILOL 12.5 MG TAB PO SCH ×2 (08:36→16:28)
[2017-04-28] MEDS ORDERED: ESCITALOPRAM OXALATE 10 MG PO SCH (09:00)
[2017-04-28] MEDS ORDERED: ESCITALOPRAM OXALATE 10 MG TAB PO SCH (09:00)
== END 2017-04-28 19:00 | disposition home or self-care (01) | DRG 329 ==
LOC: OR 06:15 → MED/SURG 11:28
PROVIDERS: ADMIT Surgery; ATTEND Surgery
PROC: 0DTF0ZZ Resection of Right Large Intestine, Open Approach (ICD-10-PCS; principal; 2017-04-23 07:30)
DX: C18.2 Malignant neoplasm of ascending colon (principal); N18.6 End stage renal disease; I12.0 Hypertensive chronic kidney disease with stage 5 chronic kidney disease or end stage renal disease; E11.22 Type 2 diabetes mellitus with diabetic chronic kidney disease; I69.354 Hemiplegia and hemiparesis following cerebral infarction affecting left non-dominant side; D63.8 Anemia in other chronic diseases classified elsewhere; Z99.2 Dependence on renal dialysis; R00.0 Tachycardia, unspecified; Z72.0 Tobacco use; J44.9 Chronic obstructive pulmonary disease, unspecified; F32.9 Major depressive disorder, single episode, unspecified; E78.5 Hyperlipidemia, unspecified
CPT/HCPCS: 36415; 36600; 71045; 71046; 80048; 80053; 82805; 82948; 83880; 84132; 85025; 86704; 86706; 86850; 86900; 87340; 88307; 88309; 88342; 90962; 97139; J0360; J0694; J1170; J1644; J2001; J2270; J2370; J2405; J7030; J7040

== ENCOUNTER 2017-06-24 14:03 | Observation (INO) | payer MEDICARE ==
[~2017-06-24] VITALS: Ht 165.1 cm; Wt 77.1 kg
--- OUTSIDE RECORDS SUMMARY | 2017-06-24 14:06 | XMS REPORT | Clinical Summary ---
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 Name Role Phone Asked, Pcp PCP Unavailable Allergies Not on File Current Medications Not on file Active Problems Not on file Encounters Date Type Specialty Care Team Description 05/26/2017 Hospital Procedural Cardiology Marisela Caceres MD Pre- op testing Encounter 05/14/2017 Orders Only General Surgery Marisela Caceres MD ESRD ( end stage renal disease) on dialysis (Primary Dx); Pre-op testing after 06/23/2016 Social History Tobacco Use Types Packs/Day Years Used Date Never Assessed Sex Assigned at Date Recorded Not on file Last Filed Vital Signs Not on file Plan of Treatment Health Maintenance Due Date Last Done Comments PAP SMEAR 1981 COLONOSCOPY 2010 MAMMOGRAM 2010 SHINGRIX VACCINE (#1) 2010 INFLUENZA VACCINE 09/10/2017 Results * Us vein mapping upper extremity (05/26/2017 9:28 AM) Specimen Performing Laboratory [facility] [address] [place] [address] Narrative Vascular Ultrasound Laboratory Upper Extremity Vein Mapping Report [address] [place] [address] Pat.Name:VIKI JOSEPH Pat.ID:[id number] .Date: 05/26/2017 Refer.MD:MARISELA CACERES MD Exam Time: 8:20:00 AMStudy Type:UE Vein Mapping Height:65inWeight:170lb BSA: 1.85 m2 DOBAge:1960,56Y Sex: FEMALESonogrphr: Nash Bateman, RN, RVS Pat. Stat.:OutpatientTapeVol: PM, CPT - 4: G0365 Echo Event ID:[id number] Order ID:[id number] Reason for Study:ESRD, diabetes. Vein mapping for dialysis access. Race: SUMMARY: DUPLEX SCAN OBSERVATIONSUPPER ARTERY PRESSURES (mmHg) Right LeftRight Left IJNormal Normal [id number] 216 SubclavianNormal [id number] 207 AxillaryNormal [id number] 213 BrachialNormal Normal BasilicNormal Normal CephalicNormal Normal RIGHT: There is normal compressibility and no evidence of echogenic material noted within the lumen of the visualized veins. Colorflow and Doppler signals are normal. LEFT: There is normal compressibility and no evidence of echogenic material noted within the lumen of the visualized veins. Colorflow and Doppler signals are normal. PRELIMINARY FINDINGS 1. Normal venous duplex exam of the visualized veins. 2. Patent dacosta arch, bilaterally. PHYSICIAN INTERPRETATION Venous examination of the both upper extremities and neck demonstrated no evidence of venous thrombosis. Patent dacosta arch, bilaterally. MEASUREMENTS: UEVEINS Right Cephalic Upper Arm Prox Cephalic Upper 0.27 cm Cephalic Upper 1.16 cm Left Cephalic Upper Arm Prox Cephalic Upper 0.19 cm Cephalic Upper 1.01 cm Right Cephalic Upper Arm Mid Cephalic Upper 0.28 cm Cephalic Upper 1.02 cm Left Cephalic Upper Arm Mid Cephalic Upper 0.16 cm Cephalic Upper 1.05 cm Right Cephalic Upper Arm Dist Cephalic Upper 0.27 cm Cephalic Upper 0.67 cm Left Cephalic Upper Arm Dist Cephalic Upper0.2 cm Cephalic Upper0.8 cm Right Cephalic Forearm Prox Cephalic Forear0.13 cm Cephalic Forear0.24 cm Left Cephalic Forearm Prox Cephalic Forear 0.2 cm Cephalic Forear0.59 cm Left Cephalic Wrist Cephalic Wrist 0.16 cm Cephalic Wrist0.9 cm Right Basilic Upper Arm Prox Basilic Upper A0.54 cm Basilic Upper A1.03 cm Left Basilic Upper Arm Prox Basilic Upper A0.54 cm Basilic Upper A0.99 cm Right Basilic Upper Arm Mid Basilic Upper A0.59 cm Basilic Upper A 1.2 cm Left Basilic Upper Arm Mid Basilic Upper A0.53 cm Basilic Upper A1.09 cm Right Basilic Upper Arm Dist Basilic Upper A0.36 cm Basilic Upper A0.81 cm Left Basilic Upper Arm Dist Basilic Upper A0.35 cm Basilic Upper A 0.8 cm Right Basilic Forearm Prox Basilic Forearm0.28 cm Basilic Forearm0.33 cm Left Basilic Forearm Prox Basilic Forearm0.18 cm Basilic Forearm0.74 cm Right Basilic Wrist Basilic Wrist A 0.2 cm Basilic Wrist D0.19 cm Left Basilic Wrist Basilic Wrist A0.14 cm Basilic Wrist D 0.6 cm Right Brachial Vein Antecube Brachial Vein A0.28 cm Brachial Vein A1.09 cm Left Brachial Vein Antecube Brachial Vein A0.24 cm Brachial Vein A1.35 cm Right Brachial Artery Brachial Artery0.34 cm Left Brachial Artery Brachial Artery0.38 cm Right Radial Artery Radial Artery A0.26 cm Left Radial Artery Radial Artery A0.16 cm Right Ulnar Artery Ulnar Artery AP 0.2 cm Left Ulnar Artery Ulnar Artery AP0.19 cm Signed 05/26/2017 11:26 AM Alfonso Malik MD, RPVI Procedure Note Interface, Radiology Results In - 05/26/2017 11:26 AM CDT Vascular Ultrasound Laboratory Upper Extremity Vein Mapping Report [address] [place] [address] Pat.Name: VIKI JOSEPH Pat.ID: [id number] .Date: 05/26/2017 Refer.MD: MARISELA CACERES MD Exam Time: 8:20:00 AM Study Type:UE Vein Mapping Height: 65in Weight: 170lb BSA: 1.85 m2 Age: 5 1960,56Y Sex: FEMALE Sonogrphr: Nash Bateman RN, RVS Pat. Stat.:Outpatient Tape Vol: PM, CPT - 4: G0365 Echo Event ID:[id number] Order ID: [id number] Reason for Study:ESRD, diabetes. Vein mapping for dialysis access. Race: SUMMARY: DUPLEX SCAN OBSERVATIONS UPPER ARTERY PRESSURES (mmHg) Right Left Right Left IJ Normal Normal Brachial 210 216 Subclavian Normal Normal Radial 223 207 Axillary Normal Normal Ulnar 226 213 Brachial Normal Normal Basilic Normal Normal Cephalic Normal Normal RIGHT: There is normal compressibility and no evidence of echogenic material noted within the lumen of the visualized veins. Colorflow and Doppler signals are normal. LEFT: There is normal compressibility and no evidence of echogenic material noted within the lumen of the visualized veins. Colorflow and Doppler signals are normal. PRELIMINARY FINDINGS 1. Normal venous duplex exam of the visualized veins. 2. Patent dacosta arch, bilaterally. PHYSICIAN INTERPRETATION Venous examination of the both upper extremities and neck demonstrated no evidence of venous thrombosis. Patent dacosta arch, bilaterally. MEASUREMENTS: UEVEINS Right Cephalic Upper Arm Prox Cephalic Upper 0.27 cm Cephalic Upper 1.16 cm Left Cephalic Upper Arm Prox Cephalic Upper 0.19 cm Cephalic Upper 1.01 cm Right Cephalic Upper Arm Mid Cephalic Upper 0.28 cm Cephalic Upper 1.02 cm Left Cephalic Upper Arm Mid Cephalic Upper 0.16 cm Cephalic Upper 1.05 cm Right Cephalic Upper Arm Dist Cephalic Upper 0.27 cm Cephalic Upper 0.67 cm Left Cephalic Upper Arm Dist Cephalic Upper 0.2 cm Cephalic Upper 0.8 cm Right Cephalic Forearm Prox Cephalic Forear 0.13 cm Cephalic Forear 0.24 cm Left Cephalic Forearm Prox Cephalic Forear 0.2 cm Cephalic Forear 0.59 cm Left Cephalic Wrist Cephalic Wrist 0.16 cm Cephalic Wrist 0.9 cm Right Basilic Upper Arm Prox Basilic Upper A 0.54 cm Basilic Upper A 1.03 cm Left Basilic Upper Arm Prox Basilic Upper A 0.54 cm Basilic Upper A 0.99 cm Right Basilic Upper Arm Mid Basilic Upper A 0.59 cm Basilic Upper A 1.2 cm Left Basilic Upper Arm Mid Basilic Upper A 0.53 cm Basilic Upper A 1.09 cm Right Basilic Upper Arm Dist Basilic Upper A 0.36 cm Basilic Upper A 0.81 cm Left Basilic Upper Arm Dist Basilic Upper A 0.35 cm Basilic Upper A 0.8 cm Right Basilic Forearm Prox Basilic Forearm 0.28 cm Basilic Forearm 0.33 cm Left Basilic Forearm Prox Basilic Forearm 0.18 cm Basilic Forearm 0.74 cm Right Basilic Wrist Basilic Wrist A 0.2 cm Basilic Wrist D 0.19 cm Left Basilic Wrist Basilic Wrist A 0.14 cm Basilic Wrist D 0.6 cm Right Brachial Vein Antecube Brachial Vein A 0.28 cm Brachial Vein A 1.09 cm Left Brachial Vein Antecube Brachial Vein A 0.24 cm Brachial Vein A 1.35 cm Right Brachial Artery Brachial Artery 0.34 cm Left Brachial Artery Brachial Artery 0.38 cm Right Radial Artery Radial Artery A 0.26 cm Left Radial Artery Radial Artery A 0.16 cm Right Ulnar Artery Ulnar Artery AP 0.2 cm Left Ulnar Artery Ulnar Artery AP 0.19 cm Signed 05/26/2017 11:26 AM Alfonso Malik MD, RPVI after 06/23/2016 Insurance Payer Benefit Subscriber ID Type Phone Address Plan / Group MEDICARE MEDICARE xxxxxxxxxx Medicare [place], [place] PART A AND B
--- OUTSIDE RECORDS SUMMARY | 2017-06-24 14:06 | XMS REPORT | Continuity of Care Document ---
Author Author [facility] Organization [facility] Address [address] [place] [address] Phone Unavailable Care Team Providers Care Sporting Goods Sales Manager Name Role Phone ALEX WASHINGTON DO PCP Insurance Providers Guarantor Viki Joseph Address [address] [place] [address] Email [email or web address] Payer Medicare A & B Policy Number [id number] Subscriber's Name Viki Joseph Relationship 18 Self / Same As Patient Group Name UNEMPLOYED Effective Date 17 Advance Directives Directive Response Recorded Date/Time Does the patient have an advance directive? No 04/23/17 4:05pm If yes, is advance directive on file with [facility]? No 04/23/17 4:05pm If not on file with [facility] will patient provide a copy? Yes 04/23/17 4:05pm Do you have a Directive to Physician? No 04/22/17 10:27am Do you have a Medical Power of Custom Shoemaker? Yes 04/22/17 10:27am Do you have an out of hospital Do Not Resuscitate Order? No 04/22/17 10:27am Do you have any special needs we should be aware of? No 04/22/17 10:27am Do you have a support person here with you today? No 04/22/17 10:27am Did patient receive Notice of Privacy Practices? Yes 04/22/17 10:27am Did patient receive patient rights and responsibilities? Yes 04/22/17 10:27am Problems Medical Problem Onset Date Status Anemia Unknown CHF (congestive heart failure) 05/09/2015 Acute CVA (cerebral vascular accident) 09/05/2015 Acute Hypertensive emergency Unknown Hypertensive urgency 06/26/2015 Acute Hypoxia Unknown Pneumonia 05/09/2015 Acute Pulmonary edema Unknown Renal failure 05/09/2015 Acute Medications Current Home Medications Medication Dose Units Route Directions Days Qty Instructions Start Date Carvedilol 12.5 Mg Tablet 25 Mg Oral Twice A Day 60 Tab Escitalopram Oxalate (Lexapro) 20 Mg Tablet 10 Mg Oral Daily Hydralazine Hcl 25 Mg Tab 25 Mg Oral Three Times A Day Insulin Detemir (Levemir) 100 Unit/1 Ml Vial 23 Unit Sub-Q Daily Past Home Medications Medication Directions Ordered Status Albuterol Sulfate (Proair Hfa Inhaler*) 8.5 Gm Inh, 2 Inh Inhalation Every 4 Hours as needed for Shortness Of Breath 06/29/15 Discontinued Azithromycin 500 Mg Tablet, Discontinued Carvedilol 12.5 Mg Tablet, 12.5 Mg Oral Twice A Day Discontinued Escitalopram Oxalate (Lexapro) 10 Mg Tablet, 20 Mg Oral Daily Discontinued Furosemide (Lasix) 20 Mg Tablet, 20 Mg Oral Daily Discontinued Insulin Detemir (Levemir) 100 Unit/1 Ml Vial, 23 Units Subcutaneously Bedtime Discontinued Insulin Lispro (Humalog) 100 Unit/1 Ml Insuln.pen, 8 Units Subcutaneously Three Times Daily With Meals Discontinued Levofloxacin (Levaquin) 500 Mg Tablet, 500 Mg Oral Daily Discontinued Lisinopril 10 Mg Tablet, 10 Mg Oral Twice A Day Discontinued Metformin Hcl 1,000 Mg Tablet, 1000 Mg Oral Twice A Day Discontinued Other Bp Med , Discontinued Prednisone 20 Mg Tab, 5 Mg Oral Daily 06/29/15 Discontinued Ranitidine Hcl 75 Mg Tablet, Unknown Dose Oral Daily Discontinued Rosuvastatin Calcium (Crestor) 20 Mg Tablet, 20 Mg Oral Daily Discontinued Family History Relationship Condition Age at Onset Recorded Date/Time 09 Brother FH: heart disease Not Recorded 05/10/2015 6:34am 09 Brother FH: kidney cancer Not Recorded 05/10/2015 6:35am 09 Brother FH: lung cancer Not Recorded 05/10/2015 6:35am 09 Brother Family history of diabetes mellitus Not Recorded 05/10/2015 6: 34am 09 Brother Family history of hypertension Not Recorded 05/10/2015 6:35am 32 Mother Family history of diabetes mellitus Unknown 05/10/2015 6:34am 09 Sister FH: heart disease Not Recorded 05/10/2015 6:34am 09 Sister Family history of diabetes mellitus Not Recorded 05/10/2015 6:34am 09 Sister Family history of hypertension Not Recorded 05/10/2015 6:35am Social History Social History Problem Response Recorded Date/Time Onset Date Status Hx Psychiatric Problems No 04/23/2017 4:05pm Not Applicable Not Applicable Hx Eating Disorder No 04/23/2017 4:05pm Not Applicable Not Applicable Hx Substance Use Disorder No 04/23/2017 4:05pm Not Applicable Not Applicable Hx Depression Y - LEXAPRO 04/23/2017 4:05pm Not Applicable Not Applicable Hx Alcohol Use No 04/23/2017 4:05pm Not Applicable Not Applicable Hx Substance Use Treatment No 04/23/2017 4:05pm Not Applicable Not Applicable Hx Physical Abuse No 04/23/2017 4:05pm Not Applicable Not Applicable Hospital Discharge Instructions No hospital discharge instruction information available. Plan of Care Discharge Date 04/28/17 7:00pm Disposition HOME, SELF-CARE Instructions/Education Provided Stitches and Benjamin Care Abdominal Pain - Adult Hemodialysis Using Oxygen at Home Wound Care (General) Prescriptions See Medication Section Referrals FRANCIA SAWYER MD (Nephrology) Entered Date: 04/28/2017 6:37pm Address: [address] [place] [id number] BRENDAN TSANG MD (Internal Medicine) Entered Date: 04/28/2017 6:37pm Address: [address] [place] [id number] NATALIE RAY MD (Surgery) Entered Date: 04/28/2017 6:37pm Address: [address] [place] [address] Additional Instructions/Education OOB NO NEW MEDS RENAL DIET F/U ONE WEEK Functional Status Query Response Date Recorded FUNCTIONAL STATUS . April 25, 2017 2:35pm Assistive Devices None April 23, 2017 1:00pm Ambulation Ability Standby Assistance April 23, 2017 1:00pm Toileting Ability Minimum Assistance April 28, 2017 6:23pm Allergies, Adverse Reactions, Alerts No known allergies. Immunizations No immunization information available. Vital Signs Acute Vital Signs Vital Response Date/Time Temperature (Fahrenheit) 98.0 degrees F (97.6 - 99.5) 04/28/2017 3:49pm Pulse Pulse Rate (adult) 69 bpm (60 - 90) 04/28/2017 3:49pm Respiratory Rate 18 bpm (12 - 24) 04/28/2017 3:49pm Blood Pressure 108/59 mm Hg 04/28/2017 3:49pm Height 5 ft 5 in 04/23/2017 4:05pm Weight 184 lb 04/23/2017 4:05pm Body Mass Index 30.6 kg/m^2 04/23/2017 4:05pm Results Laboratory Results Test Name Result Units Flags Reference Collection Date/Time Result Date/ Time Comments Prothrombin Time 15.4 seconds H 11.9-14.5 11/16/2016 9:15am 11/16/2016 12:22pm Prothromb Time International Ratio 1.16 11/16/2016 9:15am 2016 12:22pm Oral Anticoagulant Therapy INR Values: 1. Low Intensity Therapy 1.5 - 2.0 2. Moderate Intensity Therapy 2.0 - 3.0 3. High Intensity Therapy(1) 2.5 - 3.5 4. High Intensity Therapy(2) 3.0 - 4.0 5. Panic Value INR > 5.0 Activated Partial Thromboplast Time 30.1 seconds 23.8-35.5 11/16/2016 9: 15am 11/16/2016 12:22pm Urine Eosinophils NONE SEEN NONE SEEN 11/16/2016 2:30pm 11/16/2016 10 :51pm Urine Random Total Protein 346.4 mg/dL H 1-14 11/16/2016 2:30pm 2016 7:54pm Urine Collection Time 24 hrs 11/18/2016 5:30pm 11/19/2016 6:08pm Urine Total Volume 2150 ml/24hr H 800-2000 11/18/2016 5:30pm 11/19/2016 6:08pm Urine Random Sodium 94 mmol/L 11/16/2016 2:30pm 11/16/2016 6:58pm Urine Creatinine 29.57 mg/dL L 47-110 11/18/2016 5:30pm 11/19/2016 6: 05pm Urine Creatinine 24 Hour 636 mg/24hr 600-1800 11/18/2016 5:30pm 2016 6:08pm Creatinine Clearance 11 ml/min L 88-128 11/18/2016 5:30pm 11/19/2016 6: 08pm Hemoglobin A1c Percent 6.2 % 4.0-7.0 11/20/2016 5:40am 11/20/2016 2: 38pm Phosphorus Level 4.0 MG/DL 2.3-4.7 11/20/2016 5:40am 11/20/2016 6:40am Magnesium Level 1.8 MG/DL 1.3-2.1 11/20/2016 5:40am 11/20/2016 6:40am Iron Level 14 ug/dL L 50-170 11/16/2016 5:00am 11/16/2016 1:47pm Total Iron Binding Capacity 398 ug/dL 261-478 11/16/2016 5:00am 2016 1:47pm Percent Iron Saturation 4 % L 15-50 11/16/2016 5:00am 11/16/2016 1:47pm Transferrin 284 mg/dL 180-382 11/16/2016 5:00am 11/16/2016 1:47pm Ferritin 11.31 ng/mL 4.63-204.00 11/16/2016 5:00am 11/16/2016 2:09pm Direct Bilirubin 0.1 mg/dL 0.0-5.0 11/16/2016 3:30pm 11/16/2016 4:39pm Triglycerides Level 157 MG/DL H 0-149 11/18/2016 5:30am 11/18/2016 6: 59am Cholesterol Level 234 MD/DL H 0-199 11/18/2016 5:30am 11/18/2016 6:59am Less than 200 mg/dL Low Risk 201 - 239 mg/dL Borderline Risk 240 mg/dl and greater High Risk LDL Cholesterol 149 MG/DL H 60-130 11/18/2016 5:30am 11/18/2016 6:59am HDL Cholesterol 54 MG/DL 40-60 11/18/2016 5:30am 11/18/2016 6:59am Cholesterol/HDL Ratio 4.3 H 3.0-3.6 11/18/2016 5:30am 11/18/2016 6: 59am Creatine Kinase 102 IU/L 29-168 11/16/2016 10:13pm 11/16/2016 11:00pm Creatine Kinase MB 6.10 ng/mL H 0.00-5.00 11/16/2016 10:13pm 11/16/2016 11:24pm Troponin I 0.468 ng/mL H 0-0.300 11/16/2016 10:13pm 11/16/2016 10:56pm Free Thyroxine 0.83 ng/dL 0.8-1.8 11/20/2016 5:40am 11/20/2016 3:06pm Thyroid Stimulating Hormone (TSH) 1.354 uIU/mL 0.350-4.940 11/20/2016 5: 40am 11/20/2016 3:06pm B-Hydroxybutyrate 1.34 .mM 11/16/2016 4:24pm 11/16/2016 7:37pm Hepatitis Be Antibody Negative Negative 11/17/2016 8:45am 11/19/2016 9:11pm Performed at: [address] [id number] Feed Inspection Supervisor: Tone Sheets MD, Phone: [phone] Hepatitis Be Antigen Negative Negative 11/17/2016 8:45am 11/19/2016 5 :38am Aldosterone 1.2 ng/dL 0.0-30.0 11/17/2016 8:45am 11/22/2016 5:21am This test was developed and its performance characteristics determined by [facility]. It has not been cleared or approved by the Food and Drug Administration. Performed at: [address] [id number] Feed Inspection Supervisor: Tone Sheets MD, Phone: [phone] Plasma Metanephrine 14 pg/mL 0-62 11/17/2016 8:45am 11/21/2016 7:51am Concentrations of Normetanephrine between 146 and 487 pg/mL, and Metanephrine between 63 and 255 pg/mL are considered indeterminate. Follow-up biochemical testing is recommended when patient levels fall within this indeterminate range. These tests include repeat testing of plasma/urinary fractionated metanephrines and plasma catecholamines. Performed at: [facility] [id number] Feed Inspection Supervisor: Tone Sheets MD, Phone: [phone] Plasma Normetanephrine 61 pg/mL 0-145 11/17/2016 8:45am 11/21/2016 7: 51am Cortisol AM Sample 6.7 ug/dL 6.2-19.4 11/17/2016 8:45am 11/18/2016 9: 52pm No "Time Drawn" on tube. Performed at: [facility] [id number] Feed Inspection Supervisor: Edmond Mcneil MD, Phone: [phone] Stool Occult Blood POSITIVE H NEGATIVE 11/17/2016 5:15pm 11/17/2016 7: 00pm White Blood Count 4.96 x10e3/uL 4.8-10.8 04/28/2017 6:05am 04/28/2017 6 :39am Red Blood Count 3.06 x10e6/uL L 3.6-5.1 04/28/2017 6:05am 04/28/2017 6: 39am Hemoglobin 9.8 g/dL L 12.0-16.0 04/28/2017 6:05am 04/28/2017 6:39am Hematocrit 29.3 % L 34.2-44.1 04/28/2017 6:05am 04/28/2017 6:39am Mean Corpuscular Volume 95.8 fL # 81-99 04/28/2017 6:05am 04/28/2017 6: 39am Mean Corpuscular Hemoglobin 32.0 pg 28-32 04/28/2017 6:05am 04/28/2017 6:39am Mean Corpuscular Hemoglobin Concent 33.4 g/dL 31-35 04/28/2017 6:05am 04/28/2017 6:39am Red Cell Distribution Width 13.2 % 11.7-14.4 04/28/2017 6:05am 2017 6:39am Platelet Count 320 x10e3/uL 140-360 04/28/2017 6:05am 04/28/2017 6: 39am Neutrophils (%) (Auto) 56.7 % 38.7-80.0 04/28/2017 6:05am 04/28/2017 6: 39am Lymphocytes (%) (Auto) 22.4 % 18.0-39.1 04/28/2017 6:05am 04/28/2017 6: 39am Monocytes (%) (Auto) 14.9 % H 4.4-11.3 04/28/2017 6:05am 04/28/2017 6: 39am Eosinophils (%) (Auto) 5.0 % 0.0-6.0 04/28/2017 6:0504/28/2017 6: 39am Basophils (%) (Auto) 0.8 % 0.0-1.0 04/28/2017 6:05am 04/28/2017 6:39am IM GRANULOCYTES % 0.2 % 0.0-1.0 04/28/2017 6:05am 04/28/2017 6:39am Neutrophils # (Auto) 2.8 2.1-6.9 04/28/2017 6:05am 04/28/2017 6:39am Lymphocytes # (Auto) 1.1 1.0-3.2 04/28/2017 6:05am 04/28/2017 6:39am Monocytes # (Auto) 0.7 0.2-0.8 04/28/2017 6:05am 04/28/2017 6:39am Eosinophils # (Auto) 0.3 0.0-0.4 04/28/2017 6:05am 04/28/2017 6:39am Basophils # (Auto) 0.0 0.0-0.1 04/28/2017 6:05am 04/28/2017 6:39am Absolute Immature Granulocyte (auto 0.01 x10e3/uL 0-0.1 04/28/2017 6: 05am 04/28/2017 6:39am Sodium Level 133 mmol/L L 136-145 04/28/2017 6:05am 04/28/2017 7:06am Potassium Level 4.1 mmol/L 3.5-5.1 04/28/2017 6:05am 04/28/2017 7:06am Chloride Level 97 mmol/L L 98-107 04/28/2017 6:05am 04/28/2017 7:06am Carbon Dioxide Level 25 mmol/L 22-04/28/2017 6:05am 04/28/2017 7: 06am Anion Gap 15.1 mmol/L 8-16 04/28/2017 6:05am 04/28/2017 7:06am Blood Urea Nitrogen 34 mg/dL H 7-04/28/2017 6:05am 04/28/2017 7:06am Creatinine 6.83 mg/dL H 0.57-1.11 04/28/2017 6:05am 04/28/2017 7:06am BUN/Creatinine Ratio 5 L 604/28/2017 6:05am 04/28/2017 7:06am Estimat Glomerular Filtration Rate 6 ML/MIN L 60- 04/28/2017 6:05am 7:06am Ranges were taken from the National Kidney Disease Education Program and the National Kidney Foundation literature. Reference ranges: 60 or greater: Normal 16-59 (for 3 consecutive months): Chronic kidney disease 15 or less: Kidney failure Glucose Level 151 mg/dL H 74-118 04/28/2017 6:05am 04/28/2017 7:06am Calcium Level 9.1 mg/dL 8.4-10.2 04/28/2017 6:05am 04/28/2017 7:06am Bedside Glucose 176 mg/dL H 70-120 04/28/2017 3:08pm 04/28/2017 5:41pm Meter ID: [id number] Total Bilirubin 0.4 mg/dL 0.2-1.2 04/26/2017 9:29am 04/26/2017 9:59am Aspartate Amino Transf (AST/SGOT) 13 IU/L 5-34 04/26/2017 9:29am 2017 9:59am Alanine Aminotransferase (ALT/SGPT) 7 IU/L 0-55 04/26/2017 9:29am 04/26 9:59am Total Protein 6.1 g/dL L 6.5-8.1 04/26/2017 9:29am 04/26/2017 9:59am Albumin 2.5 g/dL L 3.5-5.0 04/26/2017 9:29am 04/26/2017 9:59am Globulin 3.6 g/dL H 2.3-3.5 04/26/2017 9:29am 04/26/2017 9:59am Albumin/Globulin Ratio 0.7 L 0.8-2.0 04/26/2017 9:29am 04/26/2017 9: 59am Alkaline Phosphatase 69 IU/L 40-150 04/26/2017 9:29am 04/26/2017 9: 59am B-Type Natriuretic Peptide 892.0 pg/mL H 0-100 04/25/2017 6:30am 2017 10:18am Arterial Blood pH 7.42 H 7.31-7.41 04/26/2017 1:47am 04/26/2017 2: 08am Arterial Blood Partial Pressure CO2 44 mmHg 41-51 04/26/2017 1:47am 2:08am Arterial Blood Partial Pressure O2 56 mmHg L 80-105 04/26/2017 1:47am 2:08am Arterial Blood HCO3 29 mmol/L H 23-28 04/26/2017 1:47am 04/26/2017 2: 08am Arterial Blood Base Excess 4.0 mmol/L H -2 - 3 04/26/2017 1:47am 2017 2:08am Arterial Blood Oxygen Saturation 89.0 % L 95-98 04/26/2017 1:47am 2017 2:08am Pt on 3L NC. Hepatitis B Surface Antibody, Quant <3.1 mIU/mL L Immunity>9.9 2017 4:20pm 04/25/2017 8:37am Status of Immunity Anti- HBs Level Inconsistent with Immunity 0.0 - 9.9 Consistent with Immunity >9.9 Hepatitis B Core Total Antibody Negative Negative 04/24/2017 4:20pm 04/25/2017 8:37am Performed at: - [facility] [address] [id number] Feed Inspection Supervisor: Edmond Mcneil MD, Phone: [phone] Hepatitis B Surface Antigen Negative Negative 04/24/2017 4:20pm 04/25 8:37am Procedures Procedure Status Date Provider(s) EXCISION OF ASCENDING COLON, ENDO, DIAGN Completed 11/16/16 LARRY TSANG MD, CLIFF DO ORAHOOD, MONTE MD EXCISION OF TRANSVERSE COLON, ENDO, DIAGN Completed 11/16/16 LARRY TSANG MD, CLIFF DO ORAHOOD, MONTE MD EXCISION OF CECUM, ENDO, DIAGN Completed 11/16/16 LARRY TSNAG MD, CLIFF DO ORAHOOD, MONTE MD EXCISION OF STOMACH, PYLORUS, ENDO, DIAGN Completed 11/16/16 LARRY TSANG MD, CLIFF DO ORAHOOD, MONTE MD EXCISION OF STOMACH, ENDO, DIAGN Completed 11/16/16 LARRY TSANG MD, CLIFF DO ORAHOOD, MONTE MD EXCISION OF DUODENUM, ENDO, DIAGN Completed 11/16/16 LARRY TSANG MD, CLIFF DO ORAHOOD, MONTE MD INSERTION OF INFUSION DEV INTO SUP VENA CAVA, PERC APPROACH Completed LARRY TSANG MD, CLIFF DO ORAHOOD, MONTE MD TRANSFUSE NONAUT RED BLOOD CELLS IN PERIPH VEIN, PERC Completed 11/16/16 LARRY TSANG MD, CLIFF DO ORAHOOD, MONTE MD INSERTION OF INFUSION DEV INTO SUP VENA CAVA, PERC APPROACH Completed MAYA SHEETS MD PERFORMANCE OF URINARY FILTRATION, <6 HRS/DAY Completed 11/17/16 FRANCIA SAWYER MD Partial colectomy Completed 04/23/17 NATALIE RAY MD Ultrasound guidance for vascular access Active 11/16/16 FRANCIA SAWYER MD Ultrasound, renal Active 11/17/16 FRANCIA SAWYER MD Computed tomography of abdomen and pelvis with contrast Active 11/27/16 BRENDAN TSANG MD X-ray of chest, two views Active 04/22/17 NATALIE RAY MD Encounters Encounter Location Arrival/Admit Date Discharge/Depart Date Attending Provider Admitted Inpatient [facility] 04/23/17 11:28am NATALIE RAY MD Discharged Inpatient [facility] 11/16/16 12:05am 12:25pm BRENDAN TSANG MD
[2017-06-24] MEDS ORDERED: HYDRALAZINE HCL 20 MG/ML VIAL IV NR ×2 (15:00→16:00)
[2017-06-24 15:08] LABS: BASOPHILS % 0.7 % (0.0-1.0); EOSINOPHILS # (AUTO) 0.1 (0.0-0.4); EOSINOPHILS % 2.3 % (0.0-6.0); HEMATOCRIT 29.8 % (34.2-44.1); HEMOGLOBIN 9.8 g/dL (12.0-16.0); LYMPHOCYTES % 15.8 % (18.0-39.1); MEAN CORPUSCULAR HGB CONC 32.9 g/dL (31-35); MEAN CORPUSCULAR VOLUME 94.3 fL (81-99); MONOCYTES # (AUTO) 0.3 (0.2-0.8); MONOCYTES % 5.6 % (4.4-11.3); NEUTROPHILS # (AUTO) 4.6 (2.1-6.9); NEUTROPHILS % 75.4 % (38.7-80.0); PLATELET COUNT 286 x10e3/uL (140-360); RED BLOOD COUNT 3.16 x10e6/uL (3.6-5.1); RED CELL DISTRIBUTION WIDTH 13.3 % (11.7-14.4)
[2017-06-24 15:22] LABS: ALBUMIN 3.3 g/dL (3.5-5.0); ANION GAP 15.8 mmol/L (8-16); CALCIUM 9.2 mg/dL (8.4-10.2); CREATININE, SERUM 4.36 mg/dL (0.57-1.11); MAGNESIUM 1.7 MG/DL (1.3-2.1); PHOSPHORUS 2.6 MG/DL (2.3-4.7); POTASSIUM 3.8 mmol/L (3.5-5.1)
--- NOTE | 2017-06-24 15:53 | Diagnostic Imaging Report ---
PROCEDURE: Frontal and lateral views of the chest. COMPARISON: Patients [facility], DX, CHEST SINGLE (PORTABLE), 04/25/2017, 10:22. INDICATIONS: SHORTNESS OF BREATH FINDINGS: Lines/tubes: Stable right tunneled IJ dialysis catheter Lungs: Lungs are well-inflated. No consolidation. No overt pulmonary edema Pleura: Small bilateral pleural effusions. Heart and mediastinum: Stable enlargement of the cardiac silhouette. Mild central pulmonary venous congestion. Bones: No acute bony abnormality. IMPRESSION: 1. enlarged cardiac silhouette with mild central pulmonary venous congestion, without overt pulmonary edema. Small bilateral pleural effusions. Dwayne Holloway M.D. Dictated by: Dwayne Holloway M.D. on 06/24/2017 at 15:55 Electronically approved by: Dwayne Holloway M.D. on 06/24/2017 at 15:55
[2017-06-24] MEDS ORDERED: ALBUTEROL/IPRATROPIUM 3 ML NEB NEB NR (16:00)
[2017-06-24] MEDS ORDERED: METHYLPREDNISOLONE SOD SUCC 125 MG/2ML VIAL IV ONE (16:00)
[2017-06-24] MEDS ORDERED: SODIUM CHLORIDE FLUSH 10 ML SYR INJ PRN (16:30)
[2017-06-24] MEDS ORDERED: ASPIRIN 81 MG CHEW TAB PO PRN (16:30)
[2017-06-24 16:48] LABS: CREATINE KINASE MB 1.2 ng/mL (0-5.0)
--- OUTSIDE RECORDS SUMMARY | 2017-06-24 17:16 | XMS REPORT | Clinical Summary ---
Author Author [facility] Organization [facility] Address Unknown Phone Unavailable Care Team Providers Care Pipe Crew Foreman Name Role Phone Asked, Pcp PCP Unavailable [...] 9:28 AM) Specimen Performing Laboratory [facility] [address] [place] [address] Narrative Vascular Ultrasound Laboratory Upper Extremity Vein Mapping Report [address] [place] [address] Pat.Name:VIKI JOSEPH Pat.ID:[id number] .Date: 05/26/2017 Refer.MD:MARISELA CACERES MD Exam Time: 8:20:00 AMStudy Type:UE Vein Mapping Height:65inWeight:170lb BSA: 1.85 m2 DOBAge:1960,56Y Sex: FEMALESonogrphr: Nash Bateman, RN, RVS Pat. Stat.:OutpatientTapeVol: PM, CPT - 4: G0365 Echo Event ID:[id number] Order ID:[id number] Reason for Study:ESRD, diabetes. Vein mapping for dialysis access. Race: SUMMARY: DUPLEX SCAN OBSERVATIONSUPPER ARTERY PRESSURES (mmHg) Right LeftRight Left IJNormal Normal [id number] 216 SubclavianNormal [id number] 207 AxillaryNormal [id number] 213 BrachialNormal Normal BasilicNormal Normal CephalicNormal Normal [...] Laboratory Upper Extremity Vein Mapping Report [address] [place] [address] Pat.Name: VIKI JOSEPH Pat.ID: [id number] .Date: 05/26/2017 Refer.MD: MARISELA CACERES MD Exam Time: 8:20:00 AM Study Type:UE Vein Mapping Height: 65in Weight: 170lb BSA: 1.85 m2 Age: 5 1960,56Y Sex: FEMALE Sonogrphr: Nash Bateman RN, RVS Pat. Stat.:Outpatient Tape Vol: PM, CPT - 4: G0365 Echo Event ID:[id number] Order ID: [id number] Reason for Study:ESRD, diabetes. Vein mapping for [...]
[2017-06-24 18:00] VITALS: BP 209/88
[2017-06-24] MEDS: HYDRALAZINE HCL 20 MG/ML VIAL IV PRN ×2 (18:12→23:02)
[2017-06-24] MEDS: SALMETEROL/FLUTICASONE 100/50 INH SCH (19:30)
[2017-06-24] MEDS: ALBUTEROL/IPRATROPIUM 3 ML NEB NEB SCH (19:30)
[2017-06-24] MEDS: METHYLPREDNISOLONE SOD SUCC 40 MG/ML VIAL IV SCH (19:48)
[2017-06-24 20:00] VITALS: BP_SYST 163; BP_SYST 209; BP_DIAS 87; BP_DIAS 88
[2017-06-24 20:40] VITALS: BP 209/88
[2017-06-24 21:16] VITALS: BP 193/87
[2017-06-25] VITALS (9 sets, daily range): BP systolic 151–207; BP diastolic 75–100
[2017-06-25] MEDS: METHYLPREDNISOLONE SOD SUCC 40 MG/ML VIAL IV SCH ×4 (00:13→17:55)
[2017-06-25] MEDS: ALBUTEROL/IPRATROPIUM 3 ML NEB NEB SCH ×7 (00:15→23:20)
[2017-06-25 06:37] LABS: HEMATOCRIT 28.9 % (34.2-44.1); HEMOGLOBIN 9.4 g/dL (12.0-16.0); LYMPHOCYTES # (AUTO) 0.5 (1.0-3.2); LYMPHOCYTES % 13.1 % (18.0-39.1); MEAN CORPUSCULAR HEMOGLOBIN 30.5 pg (28-32); MEAN CORPUSCULAR HGB CONC 32.5 g/dL (31-35); MEAN CORPUSCULAR VOLUME 93.8 fL (81-99); MONOCYTES # (AUTO) 0.1 (0.2-0.8); MONOCYTES % 3.2 % (4.4-11.3); NEUTROPHILS # (AUTO) 2.8 (2.1-6.9); NEUTROPHILS % 82.5 % (38.7-80.0); PLATELET COUNT 248 x10e3/uL (140-360); RED BLOOD COUNT 3.08 x10e6/uL (3.6-5.1); RED CELL DISTRIBUTION WIDTH 13.2 % (11.7-14.4)
[2017-06-25] MEDS: SALMETEROL/FLUTICASONE 100/50 INH SCH ×2 (07:00→19:00)
[2017-06-25 07:11] LABS: CREATINE KINASE MB 1.4 ng/mL (0-5.0)
[2017-06-25 07:29] LABS: ANION GAP 19.1 mmol/L (8-16); CALCIUM 8.8 mg/dL (8.4-10.2); CREATININE, SERUM 6.18 mg/dL (0.57-1.11); POTASSIUM 5.1 mmol/L (3.5-5.1)
[2017-06-25] MEDS: HYDRALAZINE HCL 20 MG/ML VIAL IV PRN ×2 (08:07→13:03)
[2017-06-25] MEDS: NICOTINE 14 MG/EA PATCH TOP SCH (08:07)
[2017-06-25] MEDS: CARVEDILOL 12.5 MG TAB PO SCH ×2 (08:14→17:56)
[2017-06-25] MEDS ORDERED: POTASSIUM CHLORIDE 20MEQ/100ML 100 ML IV STA (08:55)
[2017-06-25] MEDS ORDERED: HYDRALAZINE HCL 20 MG/ML VIAL IV PRN (09:00)
[2017-06-25] MEDS ORDERED: DEXTROSE 50% SYRINGE 50 ML IV PRN (09:30)
[2017-06-25] MEDS: INSULIN DETEMIR 100 UNIT/ML PEN SQ SCH (10:41)
[2017-06-25] MEDS ORDERED: POTASSIUM CHLORIDE 20MEQ/100ML 100 ML IV ONE ×3 (11:00→15:00)
[2017-06-25] MEDS: INSULIN LISPRO 100 UNIT/1 ML 3ML VIAL SQ SCH ×3 (11:59→21:57)
[2017-06-25 15:24] LABS: CREATINE KINASE MB 1.9 ng/mL (0-5.0)
[2017-06-25] MEDS ORDERED: HEPARIN SOD (PORCINE) 1000 UNIT/ML SDV IV PRN (19:15)
[2017-06-25] MEDS ORDERED: ALBUMIN 25% 12.5GM 0.25 GM/ML BTL IV PRN (19:15)
[2017-06-25] MEDS ORDERED: SODIUM CHLORIDE 0.9% 1000ML 2,000 ML IV PRN (19:15)
[2017-06-25] MEDS ORDERED: SODIUM CHLORIDE 0.9% 250ML 500 ML IV PRN (19:15)
[2017-06-25] MEDS ORDERED: INSULIN DETEMIR 100 UNIT/ML PEN SQ SCH (21:00)
[2017-06-25] MEDS: HYDRALAZINE HCL 25 MG TAB PO SCH (21:56)
[2017-06-26] MEDS ORDERED: TRAMADOL/APAP 37.5MG-325MG TAB PO PRN (00:30)
[2017-06-26] MEDS: METHYLPREDNISOLONE SOD SUCC 40 MG/ML VIAL IV SCH ×3 (00:34→14:54)
[2017-06-26 02:05] VITALS: BP 164/84
[2017-06-26] MEDS: ALBUTEROL/IPRATROPIUM 3 ML NEB NEB SCH ×4 (03:30→15:00)
[2017-06-26 04:00] VITALS: BP 162/88
[2017-06-26 06:49] LABS: HEMATOCRIT 26.3 % (34.2-44.1); HEMOGLOBIN 8.8 g/dL (12.0-16.0); LYMPHOCYTES # (AUTO) 0.6 (1.0-3.2); LYMPHOCYTES % 9.4 % (18.0-39.1); MEAN CORPUSCULAR HEMOGLOBIN 30.8 pg (28-32); MEAN CORPUSCULAR HGB CONC 33.5 g/dL (31-35); MONOCYTES # (AUTO) 0.3 (0.2-0.8); MONOCYTES % 4.2 % (4.4-11.3); NEUTROPHILS # (AUTO) 5.3 (2.1-6.9); NEUTROPHILS % 85.6 % (38.7-80.0); PLATELET COUNT 239 x10e3/uL (140-360); RED BLOOD COUNT 2.86 x10e6/uL (3.6-5.1); RED CELL DISTRIBUTION WIDTH 13.2 % (11.7-14.4)
[2017-06-26] MEDS: SALMETEROL/FLUTICASONE 100/50 INH SCH (07:00)
[2017-06-26 07:25] LABS: ANION GAP 15.4 mmol/L (8-16); CALCIUM 8.6 mg/dL (8.4-10.2); CREATININE, SERUM 5.05 mg/dL (0.57-1.11); POTASSIUM 4.4 mmol/L (3.5-5.1)
[2017-06-26 07:40] VITALS: BP 169/88
[2017-06-26] MEDS: INSULIN LISPRO 100 UNIT/1 ML 3ML VIAL SQ SCH ×3 (07:42→15:45)
[2017-06-26 07:47] LABS: HYPOCHROMASIA SLIGHT; LYMPHOCYTES % (MANUAL) 10 % (19-48); NEUTROPHILS % (MANUAL) 90 % (40-74); PLATELET ESTIMATE ADEQUATE; PLATELET MORPHOLOGY COMMENT NORMAL; RBC MORPHOLOGY COMMENT NORMAL
[2017-06-26] MEDS: HYDRALAZINE HCL 25 MG TAB PO SCH ×2 (08:00→14:54)
[2017-06-26] MEDS: CARVEDILOL 12.5 MG TAB PO SCH (08:00)
[2017-06-26] MEDS ORDERED: ESCITALOPRAM OXALATE 10 MG TAB PO SCH (09:00)
[2017-06-26] MEDS ORDERED: INSULIN DETEMIR 23 UNIT SQ SCH (09:00)
[2017-06-26] MEDS: INSULIN DETEMIR 100 UNIT/ML PEN SQ SCH (09:00)
[2017-06-26] MEDS ORDERED: ESCITALOPRAM OXALATE 10 MG PO SCH (09:00)
[2017-06-26] MEDS: NICOTINE 14 MG/EA PATCH TOP SCH (09:00)
[2017-06-26] MEDS ORDERED: INSULIN DETEMIR 100 UNIT/ML PEN SQ SCH (09:00)
[2017-06-26 11:23] VITALS: BP 146/80
--- NOTE | 2017-06-26 14:06 | Diagnostic Imaging Report ---
PROCEDURE: Frontal and lateral views of the chest. COMPARISON: 06/24/2017 INDICATIONS: CHRONIC OBSTRUCTIVE PULMONARY DISEASE FINDINGS: Lines/tubes: Right internal jugular central venous catheter has its tip in the right atrium, unchanged. Lungs: Linear opacity in the right lung base likely represents scar or atelectasis. There is no evidence of pneumonia or pulmonary edema. Pleura: Small bilateral effusions, unchanged. Heart and mediastinum: The heart and the mediastinum are normal. Bones: No acute bony abnormality. IMPRESSION: Bibasilar atelectasis and small bilateral pleural effusions. No focal consolidation. Dictated by: Good Pérez M.D. on 06/26/2017 at 14:08 Electronically approved by: Good Pérez M.D. on 06/26/2017 at 14:08
[2017-06-26 14:37] VITALS: BP 146/80
[2017-06-26] MEDS ORDERED: HYDRALAZINE HCL 25 MG TAB PO SCH (15:00)
[2017-06-26 15:33] VITALS: BP 189/92
--- NOTE | 2017-06-26 16:47 | Consultation ---
DATE OF CONSULTATION: June 26, 2017 NEPHROLOGY CONSULTATION REASON FOR CONSULTATION: End stage renal disease. This is a 56-year-old female who is known to our service as I manage her dialysis as an outpatient. She is known to have multiple medical problems including hypertension, diabetes, previous adrenal mass. She is actively smoking and she has end stage renal disease with hemodialysis every Friday, and Friday at [facility] in [place] and she recently was admitted for having colectomy given she had a colon mass that was resected. The patient was doing fine, she came to the dialysis unit on Friday after she had been smoking on the road and about 1 hour and a half in between the treatments she started to complain of shortness of breath and wheezing and she requested to come off and EMS was called and she was transferred to the ER. She is being admitted for shortness of breath and COPD exacerbation. We are consulted to mange dialysis as an inpatient. REVIEW OF SYSTEMS: Negative otherwise. PAST MEDICAL HISTORY: As mentioned above and status post CVA in the past. FAMILY HISTORY: Positive for hypertension, diabetes. SOCIAL HISTORY: Positive for smoking despite multiple attempts of educating the patient about cessation. No alcohol or IV drug abuse. ALLERGIES: Nothing per records. SURGERY: Status post recent hemicolectomy for colon cancer. Status post AV fistula and tunneled catheters for hemodialysis. PHYSICAL EXAMINATION VITAL SIGNS: Blood pressure 146/80, heart rate 73 and temperature 97.9. GENERAL APPEARANCE: No acute distress times 3. HEAD, EARS, EYES, NECK: No lymphadenopathy. HEART: Regular rate and rhythm. LUNGS: Bilateral rales and decreased breath sounds at the bases. ABDOMEN: Soft, nontender. EXTREMITIES: Trace edema. LABS: Hemoglobin 8.8 and chemistries, potassium is 4.4. The patient had a short session overnight since she missed her dialysis and today she is tolerating dialysis very well. ASSESSMENT AND PLAN 1. End stage renal disease. Continue hemodialysis every Friday, and Friday. 2. Electrolytes, low potassium bath. 3. Hypertension. Resume Coreg and hydralazine. Reassess post hemodialysis. 4. Anemia of chronic disease on Epogen, patient says in the hospital. 5. Recent colon cancer mass status post hemicolectomy. 6. Chronic obstructive pulmonary disease exacerbation. Patient is an active smoker and she does not have any breathing treatment or any inhalers as an outpatient. Educated the patient that she needs to stop smoking and consider nicotine patch or other alternative and she needs to see pulmonary as an outpatient for further assessment. At this time today she is feeling better. She might go home after hemodialysis. 7. Congestive heart failure. Her x-ray showed minimal congestion and we are going to challenge UF anyway and reassess patient. Overall patient is doing better today and she can go home after dialysis from a renal standpoint if cleared by other team. Job#: [id number] CHARO
== END 2017-06-26 15:58 | disposition home or self-care (01) ==
LOC: ER 14:03 → ERHOLD 17:13 → IMCU 20:35
DX: I13.2 Hypertensive heart and chronic kidney disease with heart failure and with stage 5 chronic kidney disease, or end stage renal disease (principal); I50.23 Acute on chronic systolic (congestive) heart failure; N18.6 End stage renal disease; E11.22 Type 2 diabetes mellitus with diabetic chronic kidney disease; Z79.4 Long term (current) use of insulin; Z99.2 Dependence on renal dialysis; J44.1 Chronic obstructive pulmonary disease with (acute) exacerbation; D63.8 Anemia in other chronic diseases classified elsewhere; F17.210 Nicotine dependence, cigarettes, uncomplicated; Z85.038 Personal history of other malignant neoplasm of large intestine; Z90.49 Acquired absence of other specified parts of digestive tract; I25.10 Atherosclerotic heart disease of native coronary artery without angina pectoris
CPT/HCPCS: 36415 ×3; 71046 ×2; 80048 ×2; 80053; 82550 ×2; 82553 ×2; 82948 ×2; 83735; 83880; 84100; 84484 ×2; 85025 ×3; 86704; 86706; 87340; 93005; 94640 ×5; 96372 ×2; 99284; G0257; G0378 ×3; J0360 ×2; J1644 ×2; J2920 ×3; J7030 ×2; J3480

== ENCOUNTER 2017-07-10 19:27 | Inpatient (IN) | payer MEDICARE ==
[~2017-07-10] VITALS: Ht 165.1 cm; Wt 72.6 kg
--- OUTSIDE RECORDS SUMMARY | 2017-07-10 19:30 | XMS REPORT | Clinical Summary ---
Author Author [facility] Organization [facility] Address Unknown Phone Unavailable Care Team Providers Care Coal Pulverizer Operator Name Role Phone Asked, Pcp PCP Unavailable Allergies Not on File Current Medications Not on file Active Problems Not on file Encounters Date Type Specialty Care Team Description 05/26/2017 Hospital Procedural Cardiology Marisela Caceres MD Pre- op testing Encounter 05/14/2017 Orders Only General Surgery Marisela Caceres MD ESRD ( end stage renal disease) on dialysis (Primary Dx); Pre-op testing after 07/09/2016 Social History Tobacco Use Types Packs/Day Years Used Date Never Assessed Sex Assigned at Date Recorded Not on file Last Filed Vital Signs Not on file Plan of Treatment Health Maintenance Due Date Last Done Comments CERVICAL CANCER SCREENING 1981 BREAST CANCER SCREENING 2010 COLON CANCER SCREENING 2010 SHINGRIX VACCINE (#1) 2010 INFLUENZA VACCINE 09/10/2017 Results * Us vein mapping upper extremity (05/26/2017 9:28 AM) Specimen Performing Laboratory [facility] [address] [place] [address] Narrative Vascular Ultrasound Laboratory Upper Extremity Vein Mapping Report [address] [place] [address] Pat.Name:JOSEPH VIKI M Pat.ID:[id number] .Date: 05/26/2017 Refer.MD:MARISELA CACERES MD Exam Time: 8:20:00 AMStudy Type:UE Vein Mapping Height:65inWeight:170lb BSA: 1.85 m2 DOBAge:1960,56Y Sex: FEMALESonogrphr: Nash Bateman, RN, RVS Pat. Stat.:OutpatientTapeVol: PM, CPT - 4: G0365 Echo Event ID:[id number] Order ID:[id number] Reason for Study:ESRD, diabetes. Vein mapping for dialysis access. Race: SUMMARY: DUPLEX SCAN OBSERVATIONSUPPER ARTERY PRESSURES (mmHg) Right LeftRight Left IJNormal Normal Latkjwzy580 216 SubclavianNormal XtkonkRypzld882 207 AxillaryNormal MzstltJevzg526 213 BrachialNormal Normal BasilicNormal Normal CephalicNormal Normal [...] Ultrasound Laboratory Upper Extremity Vein Mapping Report [address] [place] [address] Pat.Name: VIKI JOSEPH Pat.ID: [id number] .Date: 05/26/2017 Refer.MD: MARISELA CACERES MD Exam Time: 8:20:00 AM Study Type:UE Vein Mapping Height: 65in Weight: 170lb BSA: 1.85 m2 Age: 5 1960,56Y Sex: FEMALE Sonogrphr: Nash Bateman RN, RVS Pat. Stat.:Outpatient Tape Vol: PM, CPT - 4: G0365 Echo Event ID:[id number] Order ID: [id number] Reason for Study:ESRD, diabetes. Vein mapping for [...] 11:26 AM Alfonso Malik MD, RPVI after 07/09/2016 Insurance Payer Benefit Subscriber ID Type Phone Address Plan / Group MEDICARE MEDICARE xxxxxxxxxx Medicare [place], [place] PART A AND B
--- OUTSIDE RECORDS SUMMARY | 2017-07-10 19:30 | XMS REPORT | Continuity of Care Document ---
Author Author [facility] Organization [facility] Address [address] [place] [address] Phone Unavailable Care Team Providers Care Senior Java Architect Name Role Phone NO, PCP PCP Unavailable Insurance Providers Guarantor Viki Joseph Address [address] [place] [address] Email [email or web address] Payer Medicare A & B Policy Number [id number] Subscriber's Name Rodolfo Josephannpaty Gates Relationship 18 Self / Same As Patient Group Name UNEMPLOYED Effective Date 17 Advance Directives Directive Response Recorded Date/Time Does the patient have an advance directive? No 06/24/17 9:18pm If yes, is advance directive on file with [facility]? No 06/24/17 9:18pm If not on file with [facility] will patient provide a copy? No 06/24/17 9:18pm Do you have a Directive to Physician? No 06/24/17 4:40pm Do you have a Medical Power of Director Of Sales? No 06/24/17 4:40pm Do you have an out of hospital Do Not Resuscitate Order? No 06/24/17 4:40pm Do you have any special needs we should be aware of? No 06/24/17 4:40pm Do you have a support person here with you today? Yes 06/24/17 4:40pm Did patient receive Notice of Privacy Practices? Yes 06/24/17 4:40pm Did patient receive patient rights and responsibilities? Yes 06/24/17 4:40pm Problems Medical Problem Onset Date Status Anemia Unknown CHF (congestive heart failure) 05/09/2015 Acute COPD with exacerbation Unknown CVA (cerebral vascular accident) 09/05/2015 Acute Hypertensive emergency Unknown Hypertensive urgency 06/26/2015 Acute Hypoxia Unknown Pneumonia 05/09/2015 Acute Pulmonary edema Unknown Renal failure 05/09/2015 Acute Uncontrolled hypertension Unknown Medications Current Home Medications Medication Dose Units [...] Onset Date Status Hx Psychiatric Problems No 06/24/2017 9:18pm Not Applicable Not Applicable Hx Eating Disorder No 06/24/2017 9:18pm Not Applicable Not Applicable Hx Substance Use Disorder No 06/24/2017 9:18pm Not Applicable Not Applicable Hx Depression Y - LEXAPRO 06/24/2017 9:18pm Not Applicable Not Applicable Hx Alcohol Use No 06/24/2017 9:18pm Not Applicable Not Applicable Hx Substance Use Treatment No 06/24/2017 9:18pm Not Applicable Not Applicable Hx Physical Abuse No 06/24/2017 9:18pm Not Applicable Not Applicable Smoking Status Start Date Stop Date Current every day smoker Hospital Discharge Instructions No hospital discharge instruction information available. Plan of Care Discharge Date 06/26/17 3:58pm Disposition HOME, SELF-CARE Instructions/Education Provided Dyspnea Prescriptions See Medication Section Additional Instructions/Education ACTIVITY TOLERATED RESUME DIABETIC/RENAL DIET Functional Status Query Response Date Recorded Ambulation Ability Minimum Assistance June 24, 2017 8:40pm Toileting Ability Independent June 25, 2017 9:04am Allergies, Adverse Reactions, Alerts No known allergies. Immunizations No immunization information available. Vital Signs Acute Vital Signs Vital Response Date/Time Temperature (Fahrenheit) 96.8 degrees F (97.6 - 99.5) 06/26/2017 3:33pm Pulse Pulse Rate (adult) 78 bpm (60 - 90) 06/26/2017 4:21pm Respiratory Rate 18 bpm (12 - 24) 06/26/2017 4:21pm Blood Pressure 189/92 mm Hg 06/26/2017 3:33pm Height 5 ft 5 in 06/24/2017 2:50pm Weight 170.06 lb 06/26/2017 2:05am Body Mass Index 28.3 kg/m^2 06/26/2017 2:50pm Results Laboratory Results Test Name Result Units [...] % 4.0-7.0 11/20/2016 5:40am 11/20/2016 2: 38pm Iron Level 14 ug/dL L 50-170 11/16/2016 [...] H 3.0-3.6 11/18/2016 5:30am 11/18/2016 6: 59am Free Thyroxine 0.83 ng/dL 0.8-1.8 11/20/2016 5:40am 11/20/2016 3:06pm Thyroid Stimulating Hormone (TSH) 1.354 uIU/mL 0.350-4.940 11/20/2016 5: 40am 11/20/2016 3:06pm B-Hydroxybutyrate 1.34 .mM 11/16/2016 4:24pm 11/16/2016 7:37pm Hepatitis Be Antibody Negative Negative 11/17/2016 8:45am 11/19/2016 9:11pm Performed at: - [facility] [id number] Trench Digger Helper: Tone Sheets MD, Phone: [phone] Hepatitis Be Antigen Negative Negative 11/17/2016 8:45am 11/19/2016 5 :38am Aldosterone 1.2 ng/dL 0.0-30.0 11/17/2016 8:45am 11/22/2016 5:21am This test was developed and its performance characteristics determined by [facility]. It has not been cleared or approved by the Food and Drug Administration. Performed at: [address] [id number] Trench Digger Helper: Tone Sheets MD, Phone: [phone] Plasma Metanephrine 14 pg/mL 0-62 11/17/2016 8:45am 11/21/2016 7:51am Concentrations of Normetanephrine between 146 and 487 pg/mL, and Metanephrine between 63 and 255 pg/mL are considered indeterminate. Follow-up biochemical testing is recommended when patient levels fall within this indeterminate range. These tests include repeat testing of plasma/urinary fractionated metanephrines and plasma catecholamines. Performed at: [address] [id number] Trench Digger Helper: Tone Sheets MD, Phone: [phone] Plasma Normetanephrine 61 pg/mL 0-145 11/17/2016 8:45am 11/21/2016 7: 51am Cortisol AM Sample 6.7 ug/dL 6.2-19.4 11/17/2016 8:45am 11/18/2016 9: 52pm No "Time Drawn" on tube. Performed at: [address] [id number] Trench Digger Helper: Edmond Mcneil MD, Phone: [phone] Stool Occult Blood POSITIVE H NEGATIVE 11/17/2016 5:15pm 11/17/2016 7: 00pm Arterial Blood pH 7.42 H 7.31-7.41 04/26/2017 [...] 4:20pm 04/25/2017 8:37am Performed at: - [facility] [address] [id number] Trench Digger Helper: Edmond Mcneil MD, Phone: [phone] Hepatitis B Surface Antigen Negative Negative 04/24/2017 4:20pm 04/25 8:37am White Blood Count 6.14 x10e3/uL # 4.8-10.8 06/26/2017 6:30am 06/26/2017 6 :53am Red Blood Count 2.86 x10e6/uL L 3.6-5.1 06/26/2017 6:30am 06/26/2017 6: 53am Hemoglobin 8.8 g/dL L 12.0-16.0 06/26/2017 6:30am 06/26/2017 6:53am Hematocrit 26.3 % L 34.2-44.1 06/26/2017 6:30am 06/26/2017 6:53am Mean Corpuscular Volume 92.0 fL 81-99 06/26/2017 6:30am 06/26/2017 6: 53am Mean Corpuscular Hemoglobin 30.8 pg 28-32 06/26/2017 6:30am 06/26/2017 6:53am Mean Corpuscular Hemoglobin Concent 33.5 g/dL 31-35 06/26/2017 6:30am 06/26/2017 6:53am Red Cell Distribution Width 13.2 % 11.7-14.4 06/26/2017 6:302017 6:53am Platelet Count 239 x10e3/uL 140-360 06/26/2017 6:30am 06/26/2017 6: 53am Neutrophils (%) (Auto) 85.6 % H 38.7-80.0 06/26/2017 6:30am 06/26/2017 6 :53am Lymphocytes (%) (Auto) 9.4 % L 18.0-39.1 06/26/2017 6:3006/26/2017 6: 53am Monocytes (%) (Auto) 4.2 % L 4.4-11.3 06/26/2017 6:3006/26/2017 6: 53am Eosinophils (%) (Auto) 0.0 % 0.0-6.0 06/26/2017 6:06/26/2017 6: 53am Basophils (%) (Auto) 0.0 % 0.0-1.0 06/26/2017 6:3006/26/2017 6:53am IM GRANULOCYTES % 0.8 % 0.0-1.0 06/26/2017 6:3006/26/2017 6:53am Neutrophils # (Auto) 5.3 2.1-6.9 06/26/2017 6:06/26/2017 6:53am Lymphocytes # (Auto) 0.6 L 1.0-3.2 06/26/2017 6:06/26/2017 6: 53am Monocytes # (Auto) 0.3 0.2-0.8 06/26/2017 6:06/26/2017 6:53am Eosinophils # (Auto) 0.0 0.0-0.4 06/26/2017 6:3006/26/2017 6:53am Basophils # (Auto) 0.0 0.0-0.1 06/26/2017 6:3006/26/2017 6:53am Absolute Immature Granulocyte (auto 0.05 x10e3/uL 0-0.1 06/26/2017 6: 3006/26/2017 6:53am Differential Total Cells Counted 100 06/26/2017 6:30am 06/26/2017 7 :47am Neutrophils % (Manual) 90 % H 40-74 06/26/2017 6:3006/26/2017 7:47am Lymphocytes % (Manual) 10 % L 19-48 06/26/2017 6:30am 06/26/2017 7:47am Platelet Estimate ADEQUATE 06/26/2017 6:30am 06/26/2017 7:47am Platelet Morphology Comment NORMAL 06/26/2017 6:30am 06/26/2017 7: 47am Hypochromasia SLIGHT 06/26/2017 6:30am 06/26/2017 7:47am Red Cell Morphology Comment NORMAL 06/26/2017 6:30am 06/26/2017 7: 47am Sodium Level 136 mmol/L 136-145 06/26/2017 6:30am 06/26/2017 7:27am Potassium Level 4.4 mmol/L 3.5-5.1 06/26/2017 6:30am 06/26/2017 7:27am Chloride Level 99 mmol/L 98-107 06/26/2017 6:30am 06/26/2017 7:27am Carbon Dioxide Level 26 mmol/L 22-29 06/26/2017 6:30am 06/26/2017 7: 27am Anion Gap 15.4 mmol/L 8-16 06/26/2017 6:30am 06/26/2017 7:27am Blood Urea Nitrogen 57 mg/dL H 7-06/26/2017 6:30am 06/26/2017 7:27am Creatinine 5.05 mg/dL H 0.57-1.11 06/26/2017 6:30am 06/26/2017 7:27am BUN/Creatinine Ratio 11 6-06/26/2017 6:30am 06/26/2017 7:27am Estimat Glomerular Filtration Rate 9 ML/MIN L 60- 06/26/2017 6:30am 7:27am Ranges were taken from the National Kidney Disease Education Program and the National Kidney Foundation literature. Reference ranges: 60 or greater: Normal 16-59 (for 3 consecutive months): Chronic kidney disease 15 or less: Kidney failure Glucose Level 176 mg/dL H 74-118 06/26/2017 6:30am 06/26/2017 7:27am Calcium Level 8.6 mg/dL 8.4-10.2 06/26/2017 6:30am 06/26/2017 7:27am Bedside Glucose 249 mg/dL H 70-120 06/26/2017 3:42pm 06/26/2017 4:00pm Meter ID: [id number] Phosphorus Level 2.6 MG/DL 2.3-4.7 06/24/2017 2:55pm 06/24/2017 3:24pm Magnesium Level 1.7 MG/DL 1.3-2.1 06/24/2017 2:55pm 06/24/2017 3:24pm Total Bilirubin 0.7 mg/dL 0.2-1.2 06/24/2017 2:55pm 06/24/2017 3:24pm Aspartate Amino Transf (AST/SGOT) 8 IU/L 5-34 06/24/2017 2:55pm 2017 3:24pm Alanine Aminotransferase (ALT/SGPT) 6 IU/L 0-55 06/24/2017 2:55pm 06/24 3:24pm Total Protein 6.6 g/dL 6.5-8.1 06/24/2017 2:55pm 06/24/2017 3:24pm Albumin 3.3 g/dL L 3.5-5.0 06/24/2017 2:pm 06/24/2017 3:24pm Globulin 3.3 g/dL 2.3-3.5 06/24/2017 2:55pm 06/24/2017 3:24pm Albumin/Globulin Ratio 1.0 0.8-2.0 06/24/2017 2:55pm 06/24/2017 3: 24pm Alkaline Phosphatase 65 IU/L 40-150 06/24/2017 2:55pm 06/24/2017 3: 24pm B-Type Natriuretic Peptide 1512.7 pg/mL H 0-100 06/24/2017 2:55pm 2017 3:35pm Creatine Kinase 20 IU/L L 29-168 06/25/2017 2:45pm 06/25/2017 3:20pm Creatine Kinase MB 1.90 ng/mL 0-5.0 06/25/2017 2:45pm 06/25/2017 3: 27pm Troponin I 0.168 ng/mL 0-0.300 06/25/2017 2:45pm 06/25/2017 3:27pm Procedures Procedure Status Date Provider(s) EXCISION OF ASCENDING COLON, ENDO, DIAGN Completed 11/16/16 LARRY TSANG MD, CLIFF DO ORAHOOD, MONTE MD EXCISION OF TRANSVERSE COLON, ENDO, DIAGN Completed 11/16/16 LARRY TSANG MD, CLIFF DO ORAHOOD, MONTE MD EXCISION OF CECUM, ENDO, DIAGN Completed 11/16/16 LARRY TSANG MD, [...] <6 HRS/DAY Completed 11/17/16 FRANCIA SAWYER MD RESECTION OF RIGHT LARGE INTESTINE, OPEN APPROACH Completed 04/23/17 NATALIE RAY MD Ultrasound guidance for vascular access Active 11/16/16 FRANCIA SAWYER MD Ultrasound, renal Active 11/17/16 FRANCIA SAWYER MD Computed tomography of abdomen and pelvis with contrast Active 11/27/16 BRENDAN TSANG MD X-ray of chest, two views Active 04/22/17 NATALIE RAY MD X-ray of chest, two views Active 06/24/17 JALEEL PANG MD X-ray of chest, two views Active 06/26/17 BRENDAN TSANG MD Encounters Encounter Location Arrival/Admit Date Discharge/Depart Date Attending Provider Discharged Inpatient (obs) [facility] 06/24/17 5:13pm 3:58pm BRENDAN TSANG MD Discharged Inpatient [facility] 04/23/17 11:28am 7:00pm NATALIE RAY MD Registered Clinic [facility] 03/31/17 11:39am NATALIE RAY MD Discharged Inpatient [facility] 11/16/16 12:05am 12:25pm BRENDAN TSANG MD
[2017-07-10] MEDS ORDERED: ALBUTEROL SULF 0.083% NEB SOLN 3 ML NEB NEB STA (19:49)
[2017-07-10] MEDS ORDERED: IPRATROPIUM BROMIDE 0.02% 2.5 ML NEB NEB ONE (20:00)
--- NOTE | 2017-07-10 20:36 | Diagnostic Imaging Report ---
Two view chest x-ray INDICATION: Shortness of breath COMPARISON: Chest x-ray 11/18/2016. FINDINGS: Stable mild cardiomegaly and aortic ectasia. Dual lumen central venous catheter terminates in the distal SVC. There is no evidence of hilar lymphadenopathy. The lungs are diffusely hyperinflated. Pulmonary vascular markings are prominent but stable suggestive of pulmonary venous hypertension. Faint reticulonodular opacities in the left upper lobe are stable. No consolidation. The costophrenic angles are sharp. No pneumothorax. Evaluation of the osseous structures demonstrates diffuse demineralization. Mild degenerative changes of the spine. No focal osseous lesions. IMPRESSION: Stable pulmonary hyperinflation. Reticulonodular opacities in the left upper lobe are stable. Stable cardiomegaly without vascular congestion. Signed by: Dr. Rosie Murguia MD on 07/10/2017 8:32 PM
[2017-07-10 21:16] LABS: ABG PH 7.47 (7.31-7.41)
[2017-07-10 21:17] LABS: ABG HCO3 31 mmol/L (23-28); ABG PCO2 42 mmHg (41-51); ABG PO2 87 mmHg (80-105)
[2017-07-10 21:35] LABS: BASOPHILS % 0.4 % (0.0-1.0); EOSINOPHILS # (AUTO) 0.1 (0.0-0.4); EOSINOPHILS % 1.2 % (0.0-6.0); HEMATOCRIT 29.2 % (34.2-44.1); HEMOGLOBIN 9.8 g/dL (12.0-16.0); LYMPHOCYTES # (AUTO) 0.6 (1.0-3.2); LYMPHOCYTES % 11.9 % (18.0-39.1); MEAN CORPUSCULAR HEMOGLOBIN 31.3 pg (28-32); MEAN CORPUSCULAR HGB CONC 33.6 g/dL (31-35); MEAN CORPUSCULAR VOLUME 93.3 fL (81-99); MONOCYTES # (AUTO) 0.4 (0.2-0.8); MONOCYTES % 8.1 % (4.4-11.3); NEUTROPHILS # (AUTO) 3.8 (2.1-6.9); NEUTROPHILS % 78.2 % (38.7-80.0); PLATELET COUNT 188 x10e3/uL (140-360); RED BLOOD COUNT 3.13 x10e6/uL (3.6-5.1); RED CELL DISTRIBUTION WIDTH 14.2 % (11.7-14.4)
[2017-07-10 21:56] LABS: ALBUMIN 3.2 g/dL (3.5-5.0); ALBUMIN/GLOBULIN RATIO 0.9 (0.8-2.0); ANION GAP 16.4 mmol/L (8-16); B-TYPE NATRIURETIC PEPTIDE2 1694.2 pg/mL (0-100); CALCIUM 8.9 mg/dL (8.4-10.2); CREATININE, SERUM 3.91 mg/dL (0.57-1.11); MAGNESIUM 1.8 MG/DL (1.3-2.1); POTASSIUM 3.4 mmol/L (3.5-5.1)
[2017-07-10 22:02] LABS: CREATINE KINASE MB 1.3 ng/mL (0-5.0)
[2017-07-10] MEDS ORDERED: IPRATROPIUM BROMIDE 0.02% 2.5 ML NEB NEB PRN (22:45)
[2017-07-10] MEDS ORDERED: ALBUTEROL SULF 0.083% NEB SOLN 3 ML NEB NEB PRN (22:45)
[2017-07-10] MEDS: FAMOTIDINE 20 MG/2 ML VIAL IV SCH (22:48)
--- OUTSIDE RECORDS SUMMARY | 2017-07-10 23:38 | XMS REPORT | Clinical Summary ---
Author Author [facility] Organization [facility] Address Unknown Phone Unavailable Care Team Providers Care Tenant Relations Coordinator Name Role Phone Asked, Pcp PCP Unavailable [...] 9:28 AM) Specimen Performing Laboratory [facility] [address] [place] [address] Narrative Vascular Ultrasound Laboratory Upper Extremity Vein Mapping Report [address] [place] [address] Pat.Name:JOSEPH VIKI M Pat.ID:[id number] .Date: 05/26/2017 Refer.MD:MARISELA CACERES MD Exam Time: 8:20:00 AMStudy Type:UE Vein Mapping Height:65inWeight:170lb BSA: 1.85 m2 DOBAge:1960,56Y Sex: FEMALESonogrphr: Nash Bateman, RN, RVS Pat. Stat.:OutpatientTapeVol: PM, CPT - 4: G0365 Echo Event ID:[id number] Order ID:[id number] Reason for Study:ESRD, diabetes. Vein mapping for dialysis access. Race: SUMMARY: DUPLEX SCAN OBSERVATIONSUPPER ARTERY PRESSURES (mmHg) Right LeftRight Left IJNormal Normal Taydebnb655 216 SubclavianNormal AkuwxrPevlix055 207 AxillaryNormal WxfegyIzriz643 213 BrachialNormal Normal BasilicNormal Normal CephalicNormal Normal [...] Ultrasound Laboratory Upper Extremity Vein Mapping Report [address] [place] [address] Pat.Name: VIKI JOSEPH Pat.ID: [id number] .Date: 05/26/2017 Refer.MD: MARISELA CACERES MD Exam Time: 8:20:00 AM Study Type:UE Vein Mapping Height: 65in Weight: 170lb BSA: 1.85 m2 Age: 5 1960,56Y Sex: FEMALE Sonogrphr: Nash Bateman RN, RVS Pat. Stat.:Outpatient Tape Vol: PM, CPT - 4: G0365 Echo Event ID:[id number] Order ID: [id number] Reason for Study:ESRD, diabetes. Vein mapping for [...]
[2017-07-11] VITALS (10 sets, daily range): BP systolic 128–243; BP diastolic 70–105
[2017-07-11] MEDS: HYDRALAZINE HCL 25 MG TAB PO SCH ×4 (01:52→20:28)
[2017-07-11] MEDS: CARVEDILOL 12.5 MG TAB PO SCH ×3 (01:53→17:00)
[2017-07-11 02:45] LABS: INR 1.08; PARTIAL THROMBOPLASTIN TIME 30.1 seconds (23.8-35.5); PROTHROMBIN TIME 13.2 seconds (11.9-14.5)
[2017-07-11 06:11] LABS: BASOPHILS % 0.6 % (0.0-1.0); EOSINOPHILS # (AUTO) 0.1 (0.0-0.4); EOSINOPHILS % 2.2 % (0.0-6.0); HEMATOCRIT 24.8 % (34.2-44.1); HEMOGLOBIN 8.3 g/dL (12.0-16.0); LYMPHOCYTES % 31.9 % (18.0-39.1); MEAN CORPUSCULAR HEMOGLOBIN 31.1 pg (28-32); MEAN CORPUSCULAR HGB CONC 33.5 g/dL (31-35); MEAN CORPUSCULAR VOLUME 92.9 fL (81-99); MONOCYTES # (AUTO) 0.5 (0.2-0.8); MONOCYTES % 14.7 % (4.4-11.3); NEUTROPHILS # (AUTO) 1.6 (2.1-6.9); NEUTROPHILS % 50.3 % (38.7-80.0); PLATELET COUNT 181 x10e3/uL (140-360); RED BLOOD COUNT 2.67 x10e6/uL (3.6-5.1); RED CELL DISTRIBUTION WIDTH 13.9 % (11.7-14.4)
[2017-07-11 06:37] LABS: ALBUMIN 2.7 g/dL (3.5-5.0); ANION GAP 12.1 mmol/L (8-16); CALCIUM 8.4 mg/dL (8.4-10.2); CHOL/HDL RATIO 2.8 (3.0-3.6); CREATININE, SERUM 4.33 mg/dL (0.57-1.11); POTASSIUM 3.1 mmol/L (3.5-5.1)
[2017-07-11 07:12] LABS: CREATINE KINASE MB 0.8 ng/mL (0-5.0)
[2017-07-11] MEDS: INSULIN REGULAR, HUMAN 100 UNIT/1 ML 3ML VIAL SQ SCH ×4 (07:30→20:29)
[2017-07-11] MEDS: ESCITALOPRAM OXALATE 10 MG TAB PO SCH (07:47)
[2017-07-11] MEDS: INSULIN DETEMIR 100 UNIT/ML PEN SQ SCH (08:31)
[2017-07-11 08:51] LABS: CLARITY,URINE CLEAR (CLEAR); COLOR,URINE YELLOW (YELLOW); KETONES,URINE NEGATIVE (NEGATIVE); LEUKOCYTE ESTERASE ,URINE NEGATIVE (NEGATIVE); NITRITE,URINE NEGATIVE (NEGATIVE); PROTEIN,URINE DIPSTICK 3+ (NEGATIVE)
[2017-07-11 08:52] LABS: BILIRUBIN,URINE NEGATIVE (NEGATIVE); URINE UROBILINOGEN 0.2 mg/dL (0.2 - 1)
[2017-07-11 08:56] LABS: BACTERIA,URINE RARE /HPF; EPITHELIAL CELLS,URINE FEW /LPF; RBC,URINE 0-5 /HPF (0-5); WBC,URINE (MAN) 0-5 /HPF (0-5)
[2017-07-11] MEDS ORDERED: ESCITALOPRAM OXALATE 10 MG PO SCH (09:00)
[2017-07-11] MEDS ORDERED: INSULIN DETEMIR 23 UNIT SQ SCH (09:00)
[2017-07-11] MEDS: FAMOTIDINE 20 MG/2 ML VIAL IV SCH ×2 (12:01→21:05)
[2017-07-11] MEDS ORDERED: MANNITOL 25% 12.5GM/50 ML VIAL IV PRN (12:30)
[2017-07-11] MEDS ORDERED: ALBUMIN 25% 12.5GM 50 ML IV PRN (12:30)
[2017-07-11] MEDS ORDERED: SODIUM CHLORIDE 0.9% 1000ML 1,000 ML IV PRN (12:30)
[2017-07-11] MEDS ORDERED: HEPARIN SOD (PORCINE) 1000 UNIT/ML SDV IV PRN (12:30)
[2017-07-11 15:37] LABS: CREATINE KINASE MB 0.7 ng/mL (0-5.0)
[2017-07-11] MEDS: EPOETIN ALFA 10000 UNIT/ML VIAL SC SCH (17:30)
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
[2017-07-11] MEDS: DEXTROSE 50% SYRINGE 50 ML IV PRN (23:45)
[2017-07-12] VITALS (8 sets, daily range): BP systolic 135–215; BP diastolic 63–94
[2017-07-12] MEDS: HYDRALAZINE HCL 20 MG/ML VIAL IV PRN (01:54)
[2017-07-12] MEDS: HYDRALAZINE HCL 25 MG TAB PO SCH ×2 (06:40→18:11)
[2017-07-12] MEDS: INSULIN REGULAR, HUMAN 100 UNIT/1 ML 3ML VIAL SQ SCH ×4 (07:30→20:29)
[2017-07-12 07:37] LABS: ANION GAP 16.6 mmol/L (8-16); CALCIUM 8.6 mg/dL (8.4-10.2); CREATININE, SERUM 3.28 mg/dL (0.57-1.11); POTASSIUM 3.6 mmol/L (3.5-5.1)
[2017-07-12] MEDS: ESCITALOPRAM OXALATE 10 MG TAB PO SCH (08:25)
[2017-07-12] MEDS: CARVEDILOL 12.5 MG TAB PO SCH ×2 (08:25→18:11)
[2017-07-12] MEDS: FAMOTIDINE 20 MG/2 ML VIAL IV SCH ×2 (08:25→22:17)
[2017-07-12] MEDS: INSULIN DETEMIR 100 UNIT/ML PEN SQ SCH (08:26)
[2017-07-12] MEDS: EPOETIN ALFA 10000 UNIT/ML VIAL SC SCH (18:27)
[2017-07-13] VITALS (7 sets, daily range): BP systolic 123–165; BP diastolic 68–90
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
[2017-07-13] MEDS: INSULIN REGULAR, HUMAN 100 UNIT/1 ML 3ML VIAL SQ SCH ×4 (07:30→21:00)
[2017-07-13] MEDS: CARVEDILOL 12.5 MG TAB PO SCH ×2 (08:13→18:00)
[2017-07-13] MEDS: HYDRALAZINE HCL 25 MG TAB PO SCH ×3 (08:13→21:20)
[2017-07-13] MEDS: INSULIN DETEMIR 100 UNIT/ML PEN SQ SCH (08:14)
[2017-07-13] MEDS: ESCITALOPRAM OXALATE 10 MG TAB PO SCH (08:14)
[2017-07-13] MEDS: FAMOTIDINE 20 MG/2 ML VIAL IV SCH ×2 (11:15→22:57)
[2017-07-13 16:10] LABS: FERRITIN 203.03 ng/mL (4.63-204.00)
[2017-07-14] VITALS (7 sets, daily range): BP systolic 147–181; BP diastolic 67–91
[2017-07-14 06:01] LABS: BASOPHILS % 0.5 % (0.0-1.0); EOSINOPHILS # (AUTO) 0.1 (0.0-0.4); EOSINOPHILS % 2.6 % (0.0-6.0); HEMATOCRIT 26.4 % (34.2-44.1); HEMOGLOBIN 8.8 g/dL (12.0-16.0); LYMPHOCYTES # (AUTO) 1.4 (1.0-3.2); LYMPHOCYTES % 35.1 % (18.0-39.1); MEAN CORPUSCULAR HEMOGLOBIN 30.7 pg (28-32); MEAN CORPUSCULAR HGB CONC 33.3 g/dL (31-35); MONOCYTES # (AUTO) 0.5 (0.2-0.8); MONOCYTES % 12.8 % (4.4-11.3); NEUTROPHILS # (AUTO) 1.9 (2.1-6.9); NEUTROPHILS % 48.7 % (38.7-80.0); PLATELET COUNT 186 x10e3/uL (140-360); RED BLOOD COUNT 2.87 x10e6/uL (3.6-5.1); RED CELL DISTRIBUTION WIDTH 14.2 % (11.7-14.4)
[2017-07-14] MEDS: INSULIN REGULAR, HUMAN 100 UNIT/1 ML 3ML VIAL SQ SCH ×4 (07:30→20:38)
[2017-07-14] MEDS: HYDRALAZINE HCL 25 MG TAB PO SCH ×3 (09:10→21:34)
[2017-07-14] MEDS: CARVEDILOL 12.5 MG TAB PO SCH ×2 (09:11→16:33)
[2017-07-14] MEDS: INSULIN DETEMIR 100 UNIT/ML PEN SQ SCH (09:11)
[2017-07-14] MEDS: ESCITALOPRAM OXALATE 10 MG TAB PO SCH (09:11)
[2017-07-14] MEDS: FAMOTIDINE 20 MG/2 ML VIAL IV SCH ×2 (10:52→21:34)
[2017-07-14] MEDS ORDERED: VANCOMYCIN 1GM/NS 250 ML 250 ML IV ONE (20:15)
[2017-07-15] VITALS: BP 187/84
[2017-07-15 04:00] VITALS: BP 201/86
[2017-07-15] MEDS: HYDRALAZINE HCL 20 MG/ML VIAL IV PRN (04:54)
[2017-07-15 07:09] LABS: BASOPHILS % 0.4 % (0.0-1.0); EOSINOPHILS # (AUTO) 0.1 (0.0-0.4); EOSINOPHILS % 1.7 % (0.0-6.0); HEMATOCRIT 29.8 % (34.2-44.1); LYMPHOCYTES # (AUTO) 0.7 (1.0-3.2); LYMPHOCYTES % 14.4 % (18.0-39.1); MEAN CORPUSCULAR HGB CONC 33.6 g/dL (31-35); MEAN CORPUSCULAR VOLUME 92.3 fL (81-99); MONOCYTES # (AUTO) 0.5 (0.2-0.8); MONOCYTES % 10.4 % (4.4-11.3); NEUTROPHILS # (AUTO) 3.4 (2.1-6.9); NEUTROPHILS % 72.7 % (38.7-80.0); PLATELET COUNT 229 x10e3/uL (140-360); RED BLOOD COUNT 3.23 x10e6/uL (3.6-5.1); RED CELL DISTRIBUTION WIDTH 14.5 % (11.7-14.4)
[2017-07-15 07:20] LABS: ANION GAP 14.1 mmol/L (8-16); CALCIUM 8.9 mg/dL (8.4-10.2); CREATININE, SERUM 5.21 mg/dL (0.57-1.11); POTASSIUM 4.1 mmol/L (3.5-5.1)
[2017-07-15] MEDS: INSULIN REGULAR, HUMAN 100 UNIT/1 ML 3ML VIAL SQ SCH ×4 (08:00→23:36)
[2017-07-15] MEDS: CARVEDILOL 12.5 MG TAB PO SCH ×2 (09:00→16:11)
[2017-07-15] MEDS: HYDRALAZINE HCL 25 MG TAB PO SCH ×3 (09:00→23:35)
[2017-07-15] MEDS: ESCITALOPRAM OXALATE 10 MG TAB PO SCH (09:23)
[2017-07-15] MEDS: INSULIN DETEMIR 100 UNIT/ML PEN SQ SCH (09:23)
[2017-07-15] MEDS: FAMOTIDINE 20 MG/2 ML VIAL IV SCH ×2 (09:23→23:35)
[2017-07-15 09:27] VITALS: BP 151/72
[2017-07-15 15:59] VITALS: BP 194/85
[2017-07-15] MEDS ORDERED: EPOETIN ALFA 10000 UNIT/ML VIAL SC SCH (16:00)
[2017-07-15] MEDS ORDERED: VANCOMYCIN 1GM/NS 250 ML 250 ML IV SCH (16:00)
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
[2017-07-15 23:40] VITALS: BP 132/70
[2017-07-15] MEDS: DEXTROSE 50% SYRINGE 50 ML IV PRN (23:40)
[2017-07-16] MEDS: INSULIN REGULAR, HUMAN 100 UNIT/1 ML 3ML VIAL SQ SCH ×3 (07:30→16:00)
[2017-07-16 08:01] VITALS: BP 132/70
[2017-07-16] MEDS: INSULIN DETEMIR 100 UNIT/ML PEN SQ SCH (08:14)
[2017-07-16 08:26] VITALS: BP 185/83
[2017-07-16] MEDS: ESCITALOPRAM OXALATE 10 MG TAB PO SCH (09:00)
[2017-07-16] MEDS: CARVEDILOL 12.5 MG TAB PO SCH ×2 (09:00→16:01)
[2017-07-16] MEDS: HYDRALAZINE HCL 25 MG TAB PO SCH (09:00)
[2017-07-16] MEDS: FAMOTIDINE 20 MG/2 ML VIAL IV SCH (09:18)
[2017-07-16 12:49] VITALS: BP 137/65
[2017-07-16] MEDS ORDERED: HYDRALAZINE HCL 25 MG TAB PO SCH (14:00)
[2017-07-16] MEDS ORDERED: VANCOMYCIN 1GM/NS 250 ML 250 ML IV SCH (16:00)
[2017-07-16 16:05] VITALS: BP 155/72
== END 2017-07-16 16:03 | DRG 190 ==
LOC: ER 19:27 → ERHOLD 23:34 → MED/SURG2 23:45 → OBSVTOIN 07-13 10:06
PROC: 5A1D70Z Performance of Urinary Filtration, Intermittent, Less than 6 Hours Per Day (ICD-10-PCS; 2017-07-11)
PROC: 5A1D70Z Performance of Urinary Filtration, Intermittent, Less than 6 Hours Per Day (ICD-10-PCS; 2017-07-12)
PROC: 5A1D70Z Performance of Urinary Filtration, Intermittent, Less than 6 Hours Per Day (ICD-10-PCS; principal; 2017-07-15)
DX: J44.1 Chronic obstructive pulmonary disease with (acute) exacerbation (principal); N18.6 End stage renal disease; I13.2 Hypertensive heart and chronic kidney disease with heart failure and with stage 5 chronic kidney disease, or end stage renal disease; E46 Unspecified protein-calorie malnutrition; I50.22 Chronic systolic (congestive) heart failure; N17.9 Acute kidney failure, unspecified; R78.81 Bacteremia; J70.5 Respiratory conditions due to smoke inhalation; E11.22 Type 2 diabetes mellitus with diabetic chronic kidney disease; Z99.2 Dependence on renal dialysis; Z68.26 Body mass index [BMI] 26.0-26.9, adult; N28.9 Disorder of kidney and ureter, unspecified; I25.10 Atherosclerotic heart disease of native coronary artery without angina pectoris; D63.1 Anemia in chronic kidney disease; T59.811A Toxic effect of smoke, accidental (unintentional), initial encounter; Z79.4 Long term (current) use of insulin; Z86.73 Personal history of transient ischemic attack (TIA), and cerebral infarction without residual deficits
CPT/HCPCS: 36415; 36600; 71046; 80048; 80053; 80061; 81001; 82270; 82550; 82553; 82607; 82728; 82805; 82947; 82948; 83540; 83605; 83735; 83880; 84466; 84484; 85025; 85610; 85730; 86704; 86706; 87040; 87071; 87086; 87186; 87205; 87340; 93005; 94640; 96372; 96376; 99284; G0378; J0360; J1644; J3370; J7030; J7799; Q4081

== ENCOUNTER 2018-03-23 06:35 | Emergency (ER) | payer MEDICARE ==
[~2018-03-23] VITALS: Ht 165.1 cm; Wt 72.6 kg
--- OUTSIDE RECORDS SUMMARY | 2018-03-23 06:38 | XMS REPORT | Clinical Summary ---
Author Author [facility] Organization [facility] Address Unknown Phone Unavailable Care Team Providers Care Superintendent Board Mill Name Role Phone Asked, No Pcp PCP Unavailable Allergies Not on File Medications Not on file Active Problems Not on file Encounters Care Team Description Date Type Specialty Marisela Caceres MD Pre-op testing 05/26/2017 Hospital Procedural Cardiology Encounter Marisela Caceres MD ESRD (end stage renal disease) on dialysis (Primary Dx); Pre-op testing 05/14/2017 Orders Only General Surgery after 03/22/2017 Social History Date Tobacco Use Types Packs/Day Years Used Never Assessed Sex Assigned at Date Recorded Not on file Industry Job Start Date Occupation Not on file Not on file Not on file Travel End Travel History Travel Start No recent travel history available. Last Filed Vital Signs Not on file Plan of Treatment Health Maintenance Due Date Last Done Comments CERVICAL CANCER SCREENING 1981 BREAST CANCER SCREENING 2010 COLON CANCER SCREENING 2010 SHINGLES VACCINES (1 of 2010 2) INFLUENZA VACCINE 09/10/2017 Procedures Comments Procedure Name Priority Date/Time Associated Diagnosis US VEIN MAPPING UPPER STAT 05/26/2017 Pre-op testing EXTREMITY BILATERAL 9:28 AM CDT after 03/22/2017 Results * Us vein mapping upper extremity (05/26/2017 9:28 AM CDT) Narrative Performed At [facility] Vascular Ultrasound Laboratory Upper Extremity Vein Mapping Report [address] [address], [place] [address] Pat.Name:JOSEPH VIKI M Pat.ID:[id number] St.Date: 05/26/2017 Refer.MD:MARISELA CACERES MD Exam Time: 8:20:00 AMStudy Type:UE Vein Mapping Height:65inWeight:170lb BSA: 1.85 m2 DOBAge:1960,56Y Sex: FEMALESonogrphr: Nash Bateman RN, RVS Pat. Stat.:OutpatientTapeVol: PM, CPT - 4: G0365 Echo Event ID:[id number] Order ID:[id number] Reason for Study:ESRD, diabetes. Vein mapping for dialysis access. Race: SUMMARY: DUPLEX SCAN OBSERVATIONSUPPER ARTERY PRESSURES (mmHg) Right LeftRight Left IJNormal Normal [id number] 216 SubclavianNormal AftgsiRhpojf548 207 AxillaryNormal ZoryxdDvrar649 213 BrachialNormal Normal BasilicNormal Normal CephalicNormal Normal [...] Ultrasound Laboratory Upper Extremity Vein Mapping Report [address] [place] [address] Pat.Name: VIKI JOSEPH.ID: [id number] .Date: 05/26/2017 Refer.MD: MARISELA CACERES MD Exam Time: 8:20:00 AM Study Type:UE Vein Mapping Height: 65in Weight: 170lb BSA: 1.85 m2 Age: 5 1960,56Y Sex: FEMALE Sonogrphr: Nash Bateman, RN, RVS Pat. Stat.:Outpatient Tape Vol: PM, CPT - 4: G0365 Echo Event ID:[id number] Order ID: [id number] Reason for Study:ESRD, diabetes. Vein mapping for [...] 05/26/2017 11:26 AM Alfonso Malik MD, RPVI Performing Organization Address City/State/Zipcode Phone Number [address] [place] [address] after 03/22/2017 Insurance Payer Benefit Subscriber ID Type Phone Address Plan / Group MEDICARE MEDICARE xxxxxxxxxx Medicare [place], [place] PART A AND B Advance Directives Patient has advance care planning documents on file. For more information, iona newman contact: Deny West [address] [place] [address]
[2018-03-23] MEDS ORDERED: ATORVASTATIN CA20 MG PO (06:49)
[2018-03-23] MEDS ORDERED: NIFEDIPINE ER30 M1 PO (06:49)
[2018-03-23 06:56] LABS: BASOPHILS % 0.4 % (0.0-1.0); EOSINOPHILS # (AUTO) 0.1 (0.0-0.4); EOSINOPHILS % 1.8 % (0.0-6.0); HEMATOCRIT 31.3 % (34.2-44.1); HEMOGLOBIN 10.2 g/dL (12.0-16.0); LYMPHOCYTES # (AUTO) 1.1 (1.0-3.2); LYMPHOCYTES % 13.8 % (18.0-39.1); MEAN CORPUSCULAR HEMOGLOBIN 32.5 pg (28-32); MEAN CORPUSCULAR HGB CONC 32.6 g/dL (31-35); MEAN CORPUSCULAR VOLUME 99.7 fL (81-99); MONOCYTES # (AUTO) 0.8 (0.2-0.8); NEUTROPHILS # (AUTO) 5.7 (2.1-6.9); NEUTROPHILS % 73.6 % (38.7-80.0); PLATELET COUNT 222 x10e3/uL (140-360); RED BLOOD COUNT 3.14 x10e6/uL (3.6-5.1); RED CELL DISTRIBUTION WIDTH 14.2 % (11.7-14.4)
[2018-03-23 07:17] LABS: ALBUMIN 3.6 g/dL (3.5-5.0); ALBUMIN/GLOBULIN RATIO 1.2 (0.8-2.0); ANION GAP 19.3 mmol/L (8-16); CREATININE, SERUM 8.13 mg/dL (0.57-1.11); POTASSIUM 4.3 mmol/L (3.5-5.1)
[2018-03-23 07:23] LABS: CREATINE KINASE MB 1.4 ng/mL (0-5.0)
--- NOTE | 2018-03-23 07:29 | NUR ---
Dr. Bobby at bedside.
[2018-03-23] MEDS ORDERED: FUROSEMIDE INJ 10 MG/ML 10 ML VIAL IV ONE ×3 (07:45→08:30)
[2018-03-23] MEDS ORDERED: NITROGLYCERIN 2% OINT 1 GM PKT TOP ONE (07:45)
--- NOTE | 2018-03-23 07:47 | Diagnostic Imaging Report ---
EXAMINATION: CHEST SINGLE (PORTABLE) INDICATION: Shortness of breath. COMPARISON: Chest radiograph 07/10/2017. FINDINGS: TUBES and LINES: None. LUNGS: Lungs are well inflated. There is no evidence of pneumonia or pulmonary edema. Linear subsegmental atelectasis in the right midlung. Mild patchy opacities at the lung bases. PLEURA: No pleural effusion or pneumothorax. HEART AND MEDIASTINUM: The cardiomediastinal silhouette is unchanged with mild cardiomegaly. Central vascular congestion without evidence of pulmonary edema. Prominence of the bilateral pulmonary arteries, suggestive of pulmonary arterial hypertension. BONES AND SOFT TISSUES: No acute osseous abnormality. Degenerative changes of the lower thoracic spine. UPPER ABDOMEN: No free air under the diaphragm. IMPRESSION: Cardiomegaly and central venous congestion without evidence of pulmonary edema. Mild patchy bibasilar opacities, likely atelectasis. Signed by: Dr. Rajiv Briggs MD on 03/23/2018 7:44 AM
--- NOTE | 2018-03-23 07:53 | NUR ---
Dr. Bobby at bedside discussing plan of care. Pt took home Coreg 25mg po dose as ordered by .
[2018-03-23] MEDS ORDERED: CARVEDILOL 12.5 MG TAB PO ONE (08:00)
[2018-03-23] MEDS ORDERED: FUROSEMIDE INJ 10 MG/ML 4 ML VIAL ONE (08:18)
[2018-03-23] MEDS ORDERED: FUROSEMIDE INJ 10 MG/ML 2 ML VIAL ONE (08:19)
[2018-03-23] MEDS ORDERED: FUROSEMIDE INJ 100 MG in SODIUM CHLORIDE 0.9% 100 ML 90 ML IV ONE (08:30)
[2018-03-23 09:23] VITALS: BP 132/86
== END 2018-03-23 09:40 | disposition home or self-care (01) ==
LOC: ER 06:35
DX: R06.09 Other forms of dyspnea (principal); N18.6 End stage renal disease; I50.1 Left ventricular failure, unspecified
CPT/HCPCS: 36415; 71045; 80053; 82550; 82553; 83880; 84484; 85025; 93005; 99284; J1940 ×3

== ENCOUNTER 2018-10-27 10:00 | Inpatient (IN) | payer MEDICARE ==
[~2018-10-27] VITALS: Ht 165.1 cm; Wt 68.5 kg
[~2018-10-27 10:00] MED LIST changes: +ATORVASTATIN CA20 MG PO; +NIFEDIPINE ER30 M1 PO
--- OUTSIDE RECORDS SUMMARY | 2018-10-27 10:03 | XMS REPORT | Clinical Summary ---
Author Author [facility] Organization [facility] Address Unknown Phone Unavailable Care Team Providers Care Client Technical Professional Name Role Phone Asked, No Pcp PCP Unavailable Allergies Not on File Medications Not on file Active Problems Not on file Social History Date Tobacco Use Types Packs/Day [...] CANCER SCREENING 1981 BREAST CANCER SCREENING 2010 COLONOSCOPY SCREENING 2010 SHINGLES VACCINES (#1) 2010 INFLUENZA VACCINE 09/10/2018 Results Not on fileafter 10/26/2017 Insurance Type Payer Benefit Subscriber ID Effective Phone Address Plan / Dates Group Medicare MEDICARE MEDICARE xxxxxxxxxx [id number] DENY, PART A AND jessi [place] B Advance Directives For more information, please contact: [phone] Patient Import Specialist Explanation Type Date Recorded Advance Directives, Living Will and Medical Power of Stumper Feller
[2018-10-27] MEDS ORDERED: ASPIRIN 81 MG CHEW TAB PO ONE ×2 (10:15→12:15)
[2018-10-27] MEDS ORDERED: ALBUTEROL/IPRATROPIUM 3 ML NEB NEB ONE (11:00)
[2018-10-27 11:25] LABS: BASOPHILS % 0.5 % (0.0-1.0); EOSINOPHILS # (AUTO) 0.1 (0.0-0.4); EOSINOPHILS % 1.2 % (0.0-6.0); HEMATOCRIT 33.8 % (34.2-44.1); HEMOGLOBIN 11.3 g/dL (12.0-16.0); LYMPHOCYTES # (AUTO) 1.3 (1.0-3.2); LYMPHOCYTES % 16.3 % (18.0-39.1); MEAN CORPUSCULAR HEMOGLOBIN 34.1 pg (28-32); MEAN CORPUSCULAR HGB CONC 33.4 g/dL (31-35); MEAN CORPUSCULAR VOLUME 102.1 fL (81-99); MONOCYTES # (AUTO) 0.8 (0.2-0.8); MONOCYTES % 9.6 % (4.4-11.3); NEUTROPHILS # (AUTO) 5.6 (2.1-6.9); PLATELET COUNT 193 x10e3/uL (140-360); RED BLOOD COUNT 3.31 x10e6/uL (3.6-5.1); RED CELL DISTRIBUTION WIDTH 13.7 % (11.7-14.4)
[2018-10-27] MEDS ORDERED: METHYLPREDNISOLONE SOD SUCC 125 MG/2ML VIAL IV ONE (11:30)
--- NOTE | 2018-10-27 11:31 | Diagnostic Imaging Report ---
Chest, 1 view, 10/27/2018. History: Shortness of breath. Comparison: 03/23/2018. Findings: The cardiomediastinal silhouette and pulmonary vasculature are mild prominent. Linear opacities are present in the lower lung zones. There is no focal consolidation or effusion. There are no acute osseous or soft tissue abnormalities. Impression: Cardiovascular with pulmonary vascular congestion and bilateral atelectasis. Signed by: Sriram Cummins on 10/27/2018 11:28 AM
[2018-10-27] MEDS ORDERED: FUROSEMIDE INJ 10 MG/ML 4 ML VIAL IV ONE (11:45)
[2018-10-27 11:47] LABS: ALBUMIN 3.2 g/dL (3.5-5.0); ANION GAP 20.9 mmol/L (8-16); CALCIUM 8.9 mg/dL (8.4-10.2); CREATININE, SERUM 8.04 mg/dL (0.57-1.11); POTASSIUM 4.9 mmol/L (3.5-5.1)
[2018-10-27 11:54] LABS: CREATINE KINASE MB 2.1 ng/mL (0-5.0)
[2018-10-27] MEDS ORDERED: ONDANSETRON HCL INJ 2MG/ML 2ML 2 MG/ML VIAL IV PRN (12:15)
[2018-10-27] MEDS ORDERED: CEFTRIAXONE SOD 1 GM/NS 50 ML 50 ML IV ONE (12:30)
[2018-10-27] MEDS ORDERED: CEFTRIAXONE SOD 1 GM VIAL IV SCH (12:30)
[2018-10-27] MEDS ORDERED: ALBUTEROL/IPRATROPIUM 3 ML NEB NEB PRN (12:30)
--- OUTSIDE RECORDS SUMMARY | 2018-10-27 12:42 | XMS REPORT | Clinical Summary ---
Author Author [facility] Organization [facility] Address Unknown Phone Unavailable Care Team Providers Care Tool Radial Drill Press Set Up Operator Name Role Phone Asked, No Pcp PCP [...] Advance Directives For more information, please contact: [phone] Patient Cafeteria Director Explanation Type Date Recorded Advance Directives, Living Will and Medical Power of Plastic Cutter
[2018-10-27] MEDS ORDERED: SODIUM CHLORIDE 0.9% 50ML 0 ML ONE (12:44)
[2018-10-27] MEDS ORDERED: TRELEGY INH (12:48)
[2018-10-27] MEDS ORDERED: RENAGEL800 MG PO (12:50)
[2018-10-27] MEDS ORDERED: FUROSEMIDE IV ONE (13:00)
[2018-10-27] MEDS ORDERED: SODIUM CHLORIDE 0.9% IV ONE (13:00)
[2018-10-27 13:57] LABS: ABG HCO3 15 mmol/L (23-28); ABG PCO2 30 mmHg (41-51); ABG PH 7.32 (7.31-7.41); ABG PO2 110 mmHg (80-105)
[2018-10-27] MEDS ORDERED: HYDRALAZINE HCL 20 MG/ML VIAL IV ONE (14:00)
[2018-10-27] MEDS ORDERED: SODIUM CHLORIDE 0.9% 1000ML 2,000 ML ONE (14:18)
--- NOTE | 2018-10-27 14:46 | NUR ---
HD NURSE IN ER TO BEGIN HD. CONSENT IS SIGNED AND PLACED INTO CHART
--- NOTE | 2018-10-27 15:17 | NUR ---
PATIENT REPORTS FEELING SOB. SPO2 SENSOR OFF FINGER. REPLACED AND SATS READING 88%. PUT PATIENT BACK ON BIPAP AND INFORMED ER MD. RT CALLED FOR REPEAT ABG
[2018-10-27 18:28] LABS: CREATINE KINASE MB 4.3 ng/mL (0-5.0)
--- NOTE | 2018-10-27 20:00 | NUR ---
pt refuses to wear bipap, placed on 2l nc. states she feels much better and does not think she needs bipap any longer. awake alert skin w/d resp nonlab. nad noted.
--- NOTE | 2018-10-27 21:23 | NUR ---
PT IMPROVED AFTER DIALYSIS AND NO LONGER NEEDS BIPAP, SPO2 100% ON 2L NC, PT STATES SHE FEELS MUCH BETTER. AWAKE ALERT SKIN W/D RESP NONLAB. NAD NOTED. DR Willa TSANG NOTIFIED, OK TO ADMIT TO IMCU. NEW ORDERS FOR IMCU PLACED
[2018-10-27 23:20] VITALS: BP 163/90
[2018-10-27 23:40] VITALS: BP 163/90
[2018-10-28] VITALS (18 sets, daily range): BP systolic 122–171; BP diastolic 59–99
[2018-10-28] MEDS: HYDRALAZINE HCL 20 MG/ML VIAL IV PRN (01:24)
[2018-10-28 01:44] LABS: CREATINE KINASE MB 5.2 ng/mL (0-5.0)
--- NOTE | 2018-10-28 01:57 | NUR ---
Notified Dr. Hernandez of elevated troponin of 1.335 MD stated "she had end stage renal disease, so it is OK" and ordered cardiology consult.
--- NOTE | 2018-10-28 02:03 | Consultation ---
DATE OF CONSULTATION: 10/27/2018 Renal Consultation REASON FOR CONSULTATION: End-stage renal disease. HISTORY OF PRESENT ILLNESS: A 58-year-old female with end-stage renal disease, COPD, who missed dialysis on 10/26/2018, presented to [facility] with shortness of breath. The patient was placed on BiPAP, was found to have volume overload. Nephrology consultation was called. The patient currently seen on hemodialysis, remains on BiPAP, breathing has improved. REVIEW OF SYSTEMS: As above. All other systems negative. PAST MEDICAL HISTORY: 1. End-stage renal disease, on hemodialysis Friday, Friday, Friday at [facility]. 2. Congestive heart failure. 3. Hypertension. 4. Diabetes. 5. Anemia secondary to chronic kidney disease. 6. COPD. 7. History of CVA. PAST SURGICAL HISTORY: Left upper extremity AV fistula. SOCIAL HISTORY: Positive tobacco. No alcohol. No IV drugs. FAMILY HISTORY: No family history of kidney disease. ALLERGIES: NO KNOWN DRUG ALLERGIES. CURRENT MEDICATIONS: See list. PHYSICAL EXAMINATION: VITAL SIGNS: Blood pressure 166/95, pulse 89, respiratory rate 20, temperature 98.5. GENERAL: No apparent distress. HEENT: Oropharynx clear. No scleral icterus. No periorbital edema. NECK: Supple. Elevated jugular venous pressure. CHEST: Rhonchi anteriorly bilaterally with increased expiratory phase. CARDIOVASCULAR: Regular rhythm. No murmurs or rubs. Tachycardic. ABDOMEN: Soft. Positive bowel sounds. No tenderness. No rebound. EXTREMITIES: Trace edema. IMAGING: Chest x-ray, cardiovascular with pulmonary vascular congestion, bilateral atelectasis. LABORATORY DATA: White count 7.8, hemoglobin 11.3, hematocrit 33.8, platelets 193. Sodium 138, potassium 4.9, chloride 107, CO2 of 15, BUN 71, creatinine 8.04. Lactic acid 20.2, albumin 3.2. BNP . ASSESSMENT AND PLAN: 1. End-stage renal disease. Patient receiving emergent dialysis. We will plan for dialysis again tomorrow, but keep her on Friday, Friday, Friday schedule. 2. Volume overload. The patient to have 4 L ultrafiltrated today. We will again place her on hemodialysis tomorrow. The patient to be weaned off BiPAP. 3. Lytes will correct with hemodialysis. 4. Anemia secondary to chronic kidney disease. We will start Epogen if hemoglobin drops below 11. 5. Chronic obstructive pulmonary disease per primary team. MD BLAS Morgan/EVER /[id number]
--- NOTE | 2018-10-28 02:04 | NUR ---
Notified Dr. Teran of consult and elevated troponin level. No new orders received.
[2018-10-28 05:24] LABS: BASOPHILS % 0.3 % (0.0-1.0); EOSINOPHILS # (AUTO) 0.2 (0.0-0.4); EOSINOPHILS % 2.9 % (0.0-6.0); HEMOGLOBIN 10.3 g/dL (12.0-16.0); LYMPHOCYTES # (AUTO) 0.6 (1.0-3.2); MEAN CORPUSCULAR HEMOGLOBIN 33.6 pg (28-32); MEAN CORPUSCULAR HGB CONC 33.2 g/dL (31-35); MONOCYTES # (AUTO) 0.9 (0.2-0.8); MONOCYTES % 13.9 % (4.4-11.3); NEUTROPHILS # (AUTO) 4.6 (2.1-6.9); NEUTROPHILS % 72.4 % (38.7-80.0); PLATELET COUNT 199 x10e3/uL (140-360); RED BLOOD COUNT 3.07 x10e6/uL (3.6-5.1); RED CELL DISTRIBUTION WIDTH 13.8 % (11.7-14.4)
[2018-10-28 05:59] LABS: CREATINE KINASE MB 5.1 ng/mL (0-5.0)
[2018-10-28 06:18] LABS: ANION GAP 23.9 mmol/L (8-16); CALCIUM 10.1 mg/dL (8.4-10.2); CREATININE, SERUM 6.6 mg/dL (0.57-1.11); POTASSIUM 4.9 mmol/L (3.5-5.1)
--- NOTE | 2018-10-28 08:00 | NUR ---
Patient accu check 298 patient made aware she stated " I do not want to be on the sliding scale give me my long acting insulin", patient given insulin 23 units per her request and schedule.
[2018-10-28] MEDS: SEVELAMER CARBONATE 800 MG TAB PO SCH ×3 (08:13→17:00)
[2018-10-28] MEDS: ESCITALOPRAM OXALATE 10 MG TAB PO SCH (08:13)
[2018-10-28] MEDS: CARVEDILOL 12.5 MG TAB PO SCH ×2 (08:15→17:00)
[2018-10-28 08:31] LABS: EOSINOPHILS % (MANUAL) 3 % (0-7); LYMPHOCYTES % (MANUAL) 17 % (19-48); MONOCYTES % (MANUAL) 13 % (3.4-9.0); NEUTROPHILS % (MANUAL) 67 % (40-74); PLATELET ESTIMATE MODERATELY DECREASED
[2018-10-28 08:32] LABS: PLATELET MORPHOLOGY COMMENT FEW LARGE; RBC MORPHOLOGY COMMENT NORMAL
[2018-10-28] MEDS: NIFEDIPINE CR 30 MG TAB PO SCH (09:00)
[2018-10-28] MEDS: TRELEGY INH SCH (09:00)
[2018-10-28] MEDS: INSULIN GLARGINE 100 UNITS/ML VIAL SQ SCH (09:00)
[2018-10-28] MEDS ORDERED: SEVELAMER CARBONATE 800 MG TAB PO SCH (09:00)
[2018-10-28] MEDS ORDERED: INSULIN GLARGINE 100 UNITS/ML VIAL SQ SCH (09:00)
[2018-10-28] MEDS: CEFTRIAXONE SOD 1 GM/NS 50 ML 50 ML IV SCH (13:21)
[2018-10-28] MEDS ORDERED: HEPARIN SOD (PORCINE) 1000 UNIT/ML 30ML ONE (13:34)
[2018-10-28] MEDS ORDERED: IOPAMIDOL 370 MG/ML 200 ML INFUS..BTL INJ ONE (13:34)
[2018-10-28] MEDS ORDERED: VERAPAMIL HCL 2.5 MG/ML 2 ML VIAL ONE (13:34)
[2018-10-28] MEDS ORDERED: LIDOCAINE HCL 2% LOCAL 20 ML VIAL ONE (13:34)
[2018-10-28] MEDS ORDERED: SODIUM CHLORIDE 0.9% 1000ML 1,000 ML ONE ×2 (13:35→15:12)
[2018-10-28] MEDS ORDERED: HEPARIN SOD/SOD CHLORIDE 2,000 ML ONE (13:35)
[2018-10-28] MEDS ORDERED: NITROGLYCERIN/D5W 200 MCG/ML 250 ML ONE (13:35)
[2018-10-28] MEDS ORDERED: INSULIN REGULAR, HUMAN 100 UNIT/1 ML 3ML VIAL SQ ONE (13:55)
--- NOTE | 2018-10-28 13:55 | NUR ---
Dr. Lionel Kathleen, rounding to see patient made aware patient blood sugar 396 and we have orders to administer a 1 time dose of 10 units of Humulin regular insulin ordered by Dr. Hernandez to cover sugar. Received orders from Dr. Fartun Kathleen to give 5 units for now patient is NPO if for left heat catheterization.
[2018-10-28] MEDS ORDERED: MIDAZOLAM HCL 2 MG/2 ML VIAL ONE (14:10)
[2018-10-28] MEDS ORDERED: FENTANYL CITRATE/PF 100MCG/2 ML INJ ONE (14:10)
[2018-10-28] MEDS: INSULIN REGULAR, HUMAN 100 UNIT/1 ML 3ML VIAL SQ ONE ×2 (14:22→14:51)
[2018-10-28] MEDS ORDERED: MANNITOL 25% 12.5GM/50 ML VIAL IV PRN (15:00)
[2018-10-28] MEDS ORDERED: ALBUMIN 25% 12.5GM 0.25 GM/ML BTL IV PRN (15:00)
[2018-10-28] MEDS ORDERED: SODIUM CHLORIDE 0.9% 1000ML 2,000 ML IV PRN (15:00)
[2018-10-28] MEDS ORDERED: SODIUM CHLORIDE 0.9% 250ML 500 ML IV PRN (15:00)
[2018-10-28] MEDS ORDERED: ATROPINE SULFATE 0.1 MG/ML 10ML SYR ONE (15:15)
[2018-10-28] MEDS ORDERED: TICAGRELOR 90 MG TABLET ONE (15:27)
[2018-10-28] MEDS ORDERED: ASPIRIN 325 MG TAB ONE (15:27)
--- NOTE | 2018-10-28 15:45 | NUR ---
1545pm bedside report received from Annie.Identiferx2. Alert oriented and appropriate, PERRLA, respirations even and unlabored to room air. Pulses x4 extremities equal and strong. Pedal pulses PT/DP x4. Cap fill brisk < 3 sec. Skin warm and dry integrity appears D/I. IV 20g rt hand saline locked, presents healthy w/o s/s of infiltration or complaint. Abdomen soft and supple. pt offered toileting, denies need to urinate or defecate. No personal affects with patient. Family Marry [phone]. Pt and family verbalizes understanding of POC. Copies of tr band teaching tool,stent card and diagram given to daughter for safe keeping Currently w/o complaint of pain or need. TR band ok to decrease air in band at 1700pm No gross issues pain pallor pressure or dysrhythmia. ds/rn
--- NOTE | 2018-10-28 16:45 | NUR ---
[address] Davenport received orders Narco 325 back pain,medicated x1 and may repeat q6hrs.ds/rn
[2018-10-28] MEDS ORDERED: HYDROCODONE/APAP 5MG-325MG TAB ONE (16:51)
[2018-10-28] MEDS: HYDROCODONE/APAP 5MG-325MG TAB PO PRN (16:55)
--- NOTE | 2018-10-28 17:00 | NUR ---
1700RADIAL Compression removal: Initial Cuff volume 13 cc at 1330 may decrease air at 1700pm 1700pm -2cc cc Removed No hematoma/bleeding noted with normal neurovascular function. 1715pm -2cc Removed No hematoma/ bleeding noted with normal neurovascular function. Air removal completed. report phoned to floor care nurse #[phone] Stasis achieved sterile 2x2,Tegaderm, Coban dressing No hematoma, bleeding noted with normal neurovascular function. Wrist splint in place. Pt instructed on POC. Ds/Rn
--- NOTE | 2018-10-28 17:45 | NUR ---
7889 Radial access secured return to floor care. Normal neuro vascular function. Denies Cp or SOB stent x1 fix LAD Report to floor staff Blanca DONOHUE back to baseline orientation received Brilinta and asa after procedure per Gareth DONOHUE ds/rn
--- NOTE | 2018-10-28 17:45 | NUR ---
1745p Transferred to floor care per bed.With RN escort x2.Handoff completed with CHARANJIT Rios Rt TR band site w/o s/s oozing or hematoma Coban in place with arm splint reminder. Pt given POC instructions for radial access site care.Normal neuro vascular function. Back to baseline orientation. Rt saline lock intact No fluids infusing.Denies CP or SOB.Tolerating po intact. BS on arrival to engineer geophysical laboratory recover 201. Bs resulted. Reported to floor staff Blanca RN. Left pt in RN care Ready for HD tx to be started. Left av fistula remains with positive thrill. ds/rn
--- NOTE | 2018-10-28 18:00 | NUR ---
Received patient from engineering lab technician patient is awake alert and oriented x3, denies pain, has right wrist dressing no no blood noted. Hemodialysis nurse about to start hemodialysis.
[2018-10-28] MEDS ORDERED: ATORVASTATIN 40 MG TAB PO SCH (21:00)
[2018-10-28] MEDS ORDERED: ATORVASTATIN 20 MG TAB PO SCH (21:00)
--- NOTE | 2018-10-28 21:11 | NUR ---
Cardiology Consult Dictation# [id number]
[2018-10-29] VITALS (8 sets, daily range): BP systolic 112–173; BP diastolic 67–87
[2018-10-29] MEDS: HYDROCODONE/APAP 5MG-325MG TAB PO PRN (00:36)
--- NOTE | 2018-10-29 00:49 | Consultation ---
DATE OF CONSULTATION: 10/28/2018 Cardiology Consultation REQUESTING PHYSICIAN: Dr. Hernandez. REASON FOR CONSULTATION: Non-ST elevation myocardial infarction. HISTORY OF PRESENT ILLNESS: This is a 58-year-old woman with history of hypertension, hyperlipidemia, diabetes mellitus, end-stage renal disease, on Friday, Friday, Friday hemodialysis, COPD, history of CVA with residual left-sided weakness, and colon cancer status post partial colectomy, who presents with complaints of shortness of breath. She reports she missed an episode associated with dialysis and became short of breath on Friday morning and presented to the ER for further evaluation. She denied any chest pain, palpitations, orthopnea, or PND, but does endorse lower extremity edema. During admission, she was found to have troponin elevation for which Cardiology was consulted as well as volume overload for which Nephrology was consulted for dialysis with improvement in her symptoms. REVIEW OF SYSTEMS: Negative except as per HPI. PAST MEDICAL HISTORY: 1. Hypertension with hyperlipidemia. 2. Diabetes mellitus. 3. End-stage renal disease on Friday, Friday, Friday hemodialysis. 4. COPD. 5. History of CVA with residual left-sided weakness. 6. Colon cancer status post partial colectomy. PAST SURGICAL HISTORY: Left AV fistula with partial colectomy. ALLERGIES: NO KNOWN DRUG ALLERGIES. MEDICATIONS: Please see medication list. SOCIAL HISTORY: She smokes 1-1/2 to 2 packs a day for the last 40 years. No alcohol or illicit drugs. FAMILY HISTORY: Pertinent for sister and 2 brothers with coronary stents. PHYSICAL EXAMINATION: VITAL SIGNS: Temperature 97.3 degrees, pulse 84, respiratory rate 20, blood pressure 134/76, oxygen saturation 100% on 2 L nasal cannula. GENERAL: Awake, alert, in no acute distress. HEENT: Normocephalic, atraumatic. Pupils equal. No scleral icterus. NECK: Supple. No thyroid or cervical lymphadenopathy. No carotid bruits. LUNGS: Clear to auscultation bilaterally. No wheezes or crackles. CARDIOVASCULAR: Normal rate, regular rhythm. No murmur. Normal S1, S2. ABDOMEN: Soft. Nontender. EXTREMITIES: No edema. NEUROLOGIC: Nonfocal exam. LABORATORY DATA: WBC 6.31, hemoglobin 10.3, hematocrit 31, platelets 199. Sodium 137, potassium 4.9, chloride 96, CO2 22, BUN 56, creatinine 6.6. Troponin 1.339. EKG, sinus tachycardia, biatrial enlargement, cannot rule out anterior infarct, age indeterminate, anteroseptal infarct, age indeterminate. Chest x-ray, cardiovascular silhouette and pulmonary vascular are mildly prominent. IMPRESSION: 1. Non-ST elevation myocardial infarction. 2. Volume overload. 3. Hypertension with hyperlipidemia. 4. Diabetes mellitus. 5. Abnormal ECG. 6. End-stage renal disease, on hemodialysis Friday, Friday, and Friday. 7. Chronic obstructive pulmonary disease. 8. History of cerebrovascular accident with residual left-sided weakness. 9. Colon cancer status post partial colectomy. RECOMMENDATIONS: The patient was taken for cardiac catheterization, which revealed significant stenosis in the LAD, now status post PCI. Continue home cardiac medications, otherwise check fasting lipid panel. Obtain echocardiogram. Monitor patient on telemetry while admitted. Volume management per Nephrology given end-stage renal disease on hemodialysis. Discussed importance of smoking cessation with the patient. Thank you for this consult. We will continue to follow. Fartun Kathleen MD ABS/MODL /[id number]
[2018-10-29] MEDS: HYDRALAZINE HCL 20 MG/ML VIAL IV PRN (05:02)
[2018-10-29 06:03] LABS: CHOL/HDL RATIO 2.5 (3.0-3.6)
[2018-10-29] MEDS: TRELEGY INH SCH (06:47)
[2018-10-29] MEDS ORDERED: ASPIRIN 81 MG ENTERIC COATED PO STA (10:01)
[2018-10-29] MEDS: SEVELAMER CARBONATE 800 MG TAB PO SCH ×3 (10:07→18:01)
[2018-10-29] MEDS: ESCITALOPRAM OXALATE 10 MG TAB PO SCH (10:07)
[2018-10-29] MEDS: INSULIN GLARGINE 100 UNITS/ML VIAL SQ SCH (10:08)
[2018-10-29] MEDS: CARVEDILOL 12.5 MG TAB PO SCH ×2 (10:16→18:01)
[2018-10-29] MEDS: NIFEDIPINE CR 30 MG TAB PO SCH (10:16)
--- NOTE | 2018-10-29 11:37 | Progress Note ---
DATE: 10/29/2018 Cardiology Progress Note SUBJECTIVE: The patient denies chest pain or shortness of breath. OBJECTIVE: VITAL SIGNS: Temperature 99.2 degrees, pulse 82, respiratory rate 25, blood pressure 136/85, oxygen saturation 98% on room air. GENERAL: Awake, alert, no acute distress. LUNGS: Clear to auscultation bilaterally. No wheezes or crackles. CARDIOVASCULAR: Normal rate, regular rhythm. No murmur. Normal S1, S2. ABDOMEN: Soft, nontender. EXTREMITIES: No edema. CARDIAC MEDICATIONS: Nifedipine 30 mg p.o. daily, carvedilol 25 mg p.o. b.i.d., atorvastatin 80 mg p.o. at bedtime, aspirin 81 mg p.o. daily, ticagrelor 90 mg p.o. b.i.d. TELEMETRY: Normal sinus rhythm. IMPRESSION: 1. Aru-AS-ohtcvhsdc myocardial infarction. 2. Volume overload. 3. Hypertension. 4. Hyperlipidemia. 5. Diabetes mellitus. 6. Abnormal ECG. 7. End-stage renal disease on hemodialysis Friday, Friday, and Friday. 8. Chronic obstructive pulmonary disease. 9. History of cerebrovascular accident with residual left-sided weakness. 10. Colon cancer status post partial colectomy. RECOMMENDATIONS: The patient was taken for cardiac catheterization, which revealed significant stenosis in the LAD, now status post PCI. Continue current cardiac medications. Atorvastatin was increased as LDL was above goal. Discussed importance of adherence to dual anti-platelet therapy for one year with the patient. Echocardiogram is pending. Continue to monitor patient on telemetry while admitted. Volume management per Nephrology, given end-stage renal disease. Smoking cessation counseling has been provided. Thank you for this consult. We will continue to follow. Fartun Kathleen MD ABS/MODL /[id number]
[2018-10-29] MEDS: TICAGRELOR 90 MG TABLET PO SCH ×3 (11:45→18:00)
[2018-10-29] MEDS: CEFTRIAXONE SOD 1 GM/NS 50 ML 50 ML IV SCH (12:00)
--- NOTE | 2018-10-29 13:01 | NUR ---
handoff report to nurse CHARANJIT Covarrubias patient transported via wheel chair to room 200, no s/s of distress noted.
--- NOTE | 2018-10-29 13:40 | NUR ---
Received patient from [facility]. No signs of distress or c/o pain at this time. All safety measures in place. Call light placed within reach. Will continue to monitor.
[2018-10-29] MEDS ORDERED: ATORVASTATIN 40 MG TAB PO SCH (21:00)
[2018-10-30] VITALS: BP 157/70
[2018-10-30 04:00] VITALS: BP 167/74
[2018-10-30] MEDS: TRELEGY INH SCH (06:00)
--- NOTE | 2018-10-30 07:00 | NUR ---
received am report from RN and morning rounds done. pt is alert resting in bed, no s/s of distress. call light within reach and instructed pt to call nurse for help
[2018-10-30 08:33] VITALS: BP 139/72
[2018-10-30] MEDS ORDERED: ASPIRIN 81 MG ENTERIC COATED PO SCH (09:00)
[2018-10-30] MEDS: INSULIN GLARGINE 100 UNITS/ML VIAL SQ SCH (09:00)
--- NOTE | 2018-10-30 09:00 | NUR ---
pt has been cleared by Dr. Carlson
[2018-10-30] MEDS: SEVELAMER CARBONATE 800 MG TAB PO SCH ×3 (09:05→18:04)
[2018-10-30] MEDS: CARVEDILOL 12.5 MG TAB PO SCH ×2 (09:06→17:00)
[2018-10-30] MEDS: ESCITALOPRAM OXALATE 10 MG TAB PO SCH (09:06)
[2018-10-30] MEDS: TICAGRELOR 90 MG TABLET PO SCH ×2 (09:06→18:04)
[2018-10-30] MEDS: NIFEDIPINE CR 30 MG TAB PO SCH (09:07)
[2018-10-30 09:40] VITALS: BP 139/72
--- NOTE | 2018-10-30 10:55 | NUR ---
Dr. Hernandez made rounds. Verbal orders to discharge patient after dialysis
[2018-10-30 12:08] VITALS: BP 124/71
[2018-10-30] MEDS: CEFTRIAXONE SOD 1 GM/NS 50 ML 50 ML IV SCH (14:10)
[2018-10-30 17:10] VITALS: BP 109/55
--- NOTE | 2018-10-30 17:50 | NUR ---
DIALYSIS IS COMPLETE. 2.5 LITERS WERE REMOVED. BLOOD PRESSURE 119/56 AND HEART RATE 80
--- NOTE | 2018-10-30 21:05 | Progress Note ---
DATE: 10/30/2018 Cardiology Progress Note SUBJECTIVE: The patient denies chest pain or shortness of breath. OBJECTIVE: VITAL SIGNS: Temperature 97.3 degrees, pulse 81, respiratory rate 18, blood pressure 139/72, oxygen saturation 100% on room air. GENERAL: Awake, alert, in no acute distress. LUNGS: Clear to auscultation bilaterally. No wheezes or crackles. CARDIOVASCULAR: Normal rate. Regular rhythm. No murmur. Normal S1, S2. ABDOMEN: Soft, nontender. EXTREMITIES: No edema. CARDIAC MEDICATIONS: Nifedipine 30 mg p.o. daily, aspirin 81 mg p.o. daily, atorvastatin 80 mg p.o. at bedtime, carvedilol 25 mg p.o. b.i.d., Brilinta 90 mg p.o. b.i.d., aspirin 81 mg p.o. daily. LABORATORY DATA: None today. TELEMETRY: Normal sinus rhythm. IMPRESSION: 1. Non-ST elevation myocardial infarction. 2. Volume overload. 3. Hypertension. 4. Hyperlipidemia. 5. Diabetes mellitus. 6. Abnormal ECG. 7. End-stage renal disease on hemodialysis, Friday, Friday, and Friday. 8. Chronic obstructive pulmonary disease. 9. History of cerebrovascular accident with residual left-sided weakness. 10. Colon cancer status post partial colectomy. RECOMMENDATIONS: Cardiac catheterization was performed with PCI of the LAD. The patient was counseled on the importance of adherence to dual anti-platelet therapy. Prescription for Brilinta was written for the patient and she was instructed that if she could not obtain this medicine to call the office for an alternate anti-platelet therapy. Continue atorvastatin at current dose as LDL is above goal. Continue current cardiac medications. Monitor the patient on telemetry while admitted. Volume management per Nephrology given end-stage renal disease. Smoking cessation counseling was provided. Thank you for this consult. We will continue to follow. Fartun Kathleen MD ABS/MODL /[id number]
--- NOTE | 2018-11-25 06:55 | Discharge Summary ---
CHIEF COMPLAINT: Increased shortness of breath, O2 desaturation. Missed her dialysis schedule, 10/26/2018. FINAL DIAGNOSES: End-stage renal disease and coronary artery disease status post stent placement. DISPOSITION: Home. HOSPITAL COURSE: A 58-year-old female with known history of end-stage renal disease, chronic congestive heart failure, diabetes type 2, and hypertension, brought to the ER with increased shortness of breath and decreased O2 sats. She had missed her dialysis program on 10/26/2018. Now, she has complaints of severe shortness of breath, chest discomfort. Reviewed evaluation was carried out in the ER. Chest was revealing inspiratory crackles, bibasilar rales. The patient was anxious and with review of the patient, admission was led due to findings of acute over chronic congestive heart failure, end-stage renal disease with a missed recent dialysis, chest pain, diabetes type 2, and hypertension. The patient will be receiving emergent dialysis. We will begin nebulizer treatments. Requested Cardiology followup and Nephrology followup. The patient was seen by Nephrology during her stay in the facility for assistance with her dialysis issues and was seen by Dr. Carlson and with his review, his impression was end-stage renal disease, currently receiving emergent dialysis. We will be planning dialysis again for the following day and we will be keeping her on Friday, Friday, and Friday schedule. The patient does present with volume overload. We will be scheduling that on 4 L ultrafiltration a day and we will wean the patient off BiPAP. Anemia secondary to chronic kidney disease. Lytes will correct with dialysis. We will be starting the patient on Epogen if her hemoglobin drops. She is also being seen by Cardiology, Dr. Kathleen regarding findings of non ST elevation OK. Noted to have elevated troponin levels. With her review, her impression was non-ST elevation OK, volume overload, hypertension, hyperlipidemia, diabetes mellitus, and abnormal ECG. Chronic obstructive pulmonary disease, history of CVA with residual left-sided weakness, colon cancer status post partial colectomy. She was taken to the assistant laboratory director, where she underwent intervention to the left anterior descending. The catheterization was carried out showing atherectomy to the mid left anterior descending. Stent was placed at that location. She was on the [facility] floor, initially n.p.o. status, resting comfortably, in no acute distress and was noted to be feeling better overall. Following her catheterization, she was on respiratory treatments, daily medications, on her insulin routine. Labs are being followed. She is aggressively undergoing her dialysis programs. She is also being placed on supplemental O2. Her vital signs were improving. She is now back on her Friday, Friday, and Friday dialysis schedule. She is now brought up to an ADA diet. She remained uneventful in her stay, responded quite well to her procedures, and she was cleared for discharge home and she was released on 10/30/2018 in good condition. IMAGING: Chest shows cardiovascular with pulmonary vascular congestion and bilateral atelectasis. Cultures; urine as well as blood were negative. LABORATORY STUDIES: Shows CBC with a normal white count. H and H were 11.3 and 33.8. Followup white cell count was normal. Followup H and H were 10.3 to 31.0. Chemistries reveal initial electrolytes to be normal. Kidney functions revealing BUN 71, creatinine 8.04, and glucose 287. Lactic acid 20.2. Initial cardiac set enzymes were unremarkable. BNP was 2390.1. Her second set of cardiac enzymes shows troponin one now at 0.673. Her followup lactic acid was normal. Glucose levels were as high as 379. Further troponin one levels were as high as 1.339. Followup glucose was 100. As mentioned, she responded quite well and with completion of her dialysis once stabilized, she was discharged home. Her vital signs were stable, released home in stable condition. She will continue on her ADA diet. No equipments or supplies were necessary. No drain or [place] was needed. Activity level as directed by myself as well as by Dr. Carlson. As noted that she does not have a PCP documented on her demographic sheet. In discussion with her, it was recommended that she find a PCP to obtain compliance with care and she was told that she could follow up with me within 2-3 weeks if she would like. She will continue her followup with Nephrology maintaining her Friday, Friday, and Friday schedule. She will be continued on atorvastatin and calcium 40 mg p.o. at bedtime, carvedilol 25 mg p.o. b.i.d., Lexapro 20 mg p.o. daily, Levemir 23 units subcu daily, nifedipine 30 mg p.o. daily, Renagel 800 mg p.o. t.i.d., and Trelegy one inhalation daily. She was also instructed to follow up with Dr. Benites on outpatient basis for followup cardiac discussion. If she develops any similar symptoms or any other new complaints or if she has questions that she would like to have answer, she may contact me in my office. Dictated by DARYN Henson Alvarez Hernandez MD CC/MODL /[id number]
== END 2018-10-30 18:39 | disposition home or self-care (01) | DRG 291 ==
LOC: ER 10:00 → ERHOLD 12:39 → IMCU 23:24 → MED/SURG2 10-29 13:25
PROC: 5A1D70Z Performance of Urinary Filtration, Intermittent, Less than 6 Hours Per Day (ICD-10-PCS; 2018-10-27)
PROC: 5A1D70Z Performance of Urinary Filtration, Intermittent, Less than 6 Hours Per Day (ICD-10-PCS; 2018-10-28)
PROC: 5A1D70Z Performance of Urinary Filtration, Intermittent, Less than 6 Hours Per Day (ICD-10-PCS; principal; 2018-10-30)
DX: I13.2 Hypertensive heart and chronic kidney disease with heart failure and with stage 5 chronic kidney disease, or end stage renal disease (principal); N18.6 End stage renal disease; I50.23 Acute on chronic systolic (congestive) heart failure; E11.22 Type 2 diabetes mellitus with diabetic chronic kidney disease; Z99.2 Dependence on renal dialysis; Z79.4 Long term (current) use of insulin; J44.9 Chronic obstructive pulmonary disease, unspecified
CPT/HCPCS: 36415; 36600; 71045; 80048; 80053; 80061; 82550; 82553; 82805; 82948; 83605; 83880; 84484; 85025; 87040; 87086; 90962; 92933; 93005; 93306; 93454; 94640; 94660; 99284; C1724; C1725; C1887; J0360; J0696; J1644; J1815; J1817; J1940; J2001; J2250; J2405; J2930; J3010; J7030; Q9967

== ENCOUNTER 2018-12-21 06:17 | Emergency (ER) | payer MEDICARE ==
[~2018-12-21] VITALS: Ht 165.1 cm; Wt 63.5 kg
[~2018-12-21 06:17] MED LIST changes: +RENAGEL800 MG PO; +TRELEGY INH
[2018-12-21] MEDS ORDERED: METHYLPREDNISOLONE SOD SUCC 125 MG/2ML VIAL IV STA (06:20)
[2018-12-21] MEDS ORDERED: ASPIRIN 81 MG CHEW TAB PO ONE (06:30)
[2018-12-21 06:44] LABS: BASOPHILS % 0.4 % (0.0-1.0); EOSINOPHILS # (AUTO) 0.1 (0.0-0.4); EOSINOPHILS % 0.9 % (0.0-6.0); HEMATOCRIT 31.4 % (34.2-44.1); HEMOGLOBIN 10.7 g/dL (12.0-16.0); LYMPHOCYTES # (AUTO) 1.3 (1.0-3.2); LYMPHOCYTES % 16.1 % (18.0-39.1); MEAN CORPUSCULAR HEMOGLOBIN 34.1 pg (28-32); MEAN CORPUSCULAR HGB CONC 34.1 g/dL (31-35); MONOCYTES # (AUTO) 0.9 (0.2-0.8); MONOCYTES % 10.6 % (4.4-11.3); NEUTROPHILS # (AUTO) 5.8 (2.1-6.9); NEUTROPHILS % 71.5 % (38.7-80.0); PLATELET COUNT 205 x10e3/uL (140-360); RED BLOOD COUNT 3.14 x10e6/uL (3.6-5.1); RED CELL DISTRIBUTION WIDTH 12.9 % (11.7-14.4)
[2018-12-21] MEDS ORDERED: ALBUTEROL SULF 0.083% NEB SOLN 3 ML NEB NEB ONE (06:45)
--- NOTE | 2018-12-21 06:50 | NUR ---
received report from off going nurse. patient in room in bed, receiving neb treatment. family at bedside. no s/s of acute distress. resp even and nonlabored. pending lab and radiology results for dispo, limb alert to left arm, HD access.
[2018-12-21 06:52] LABS: ABG HCO3 15 mmol/L (23-28); ABG PCO2 25 mmHg (41-51); ABG PH 7.37 (7.31-7.41); ABG PO2 103 mmHg (80-105)
[2018-12-21 07:04] LABS: ALANINE AMINOTRANSFERASE 14 IU/L (0-55); ALBUMIN 3.7 g/dL (3.5-5.0); ALBUMIN/GLOBULIN RATIO 1.3 (0.8-2.0); ALKALINE PHOSPHATASE 110 IU/L (40-150); BLOOD UREA NITROGEN 84 mg/dL (7-26); BUN/CREATININE RATIO 10 (6-25); CALCIUM 9.8 mg/dL (8.4-10.2); CARBON DIOXIDE 16 mmol/L (22-29); CHLORIDE 103 mmol/L (98-107); CREATINE KINASE 25 IU/L (29-168); CREATININE, SERUM 8.34 mg/dL (0.57-1.11); EST GLOMERULAR FILTRATION RATE 5 ML/MIN (60-); GLUCOSE 216 mg/dL (74-118); SODIUM 137 mmol/L (136-145)
[2018-12-21] MEDS ORDERED: CARVEDILOL 12.5 MG TAB PO ONE (08:15)
[2018-12-21] MEDS ORDERED: PREDNISONE 20 MG TAB PO ONE (08:30)
[2018-12-21] MEDS ORDERED: LEVALBUTEROL HCL SOLN NEBU 1.25 MG/3 ML NEB INH ONE (08:30)
--- NOTE | 2018-12-21 08:40 | Diagnostic Imaging Report ---
Chest, 1 view, 12/21/2018. History: Shortness of breath. Comparison: 10/27/2018. Findings: The cardiomediastinal silhouette and pulmonary vasculature are within prominent. Linear opacities are again seen at the lung bases. There are no acute osseous or soft tissue abnormalities. Impression: Cardiomegaly, vascular congestion, and bibasilar atelectasis without significant change. Signed by: Sriram Cummins on 12/21/2018 8:37 AM
== END 2018-12-21 10:19 | disposition home or self-care (01) ==
LOC: ER 06:17
DX: R06.00 Dyspnea, unspecified (principal); R05 Cough; J44.1 Chronic obstructive pulmonary disease with (acute) exacerbation; N18.9 Chronic kidney disease, unspecified; Z99.2 Dependence on renal dialysis; Z85.038 Personal history of other malignant neoplasm of large intestine; F17.210 Nicotine dependence, cigarettes, uncomplicated
CPT/HCPCS: 36415; 71045; 80053; 82550; 82553; 82805; 83880; 84484; 85025; 93005; 94640 ×2; 99284; J2930; J7512

== ENCOUNTER 2019-04-05 17:58 | Emergency (ER) | payer MEDICARE ==
[~2019-04-05] VITALS: Ht 165.1 cm; Wt 63.5 kg
--- NOTE | 2019-04-05 18:58 | NUR ---
called [employer] order selector, notified of venous doppler order
--- NOTE | 2019-04-05 19:16 | Diagnostic Imaging Report ---
Examination: Single AP view of the chest. COMPARISON: Portable chest 03/08/2019 INDICATION: Swollen foot IMPRESSION: 1. Lines and Tubes: None 2. Lungs are well-inflated. Central pulmonary venous congestion and mild perihilar interstitial edema. Small bilateral pleural effusions and likely associated lower lobe atelectasis.. Findings likely reflect mild fluid overload. 3. Stable prominence of the cardiac silhouette. 4. No acute bony abnormalities. Signed by: Dr. Dwayne Holloway M.D. on 04/05/2019 7:14 PM
[2019-04-05 21:34] LABS: BASOPHILS % 0.3 % (0.0-1.0); EOSINOPHILS # (AUTO) 0.1 (0.0-0.4); EOSINOPHILS % 1.3 % (0.0-6.0); HEMATOCRIT 33.8 % (34.2-44.1); LYMPHOCYTES # (AUTO) 0.8 (1.0-3.2); LYMPHOCYTES % 12.1 % (18.0-39.1); MEAN CORPUSCULAR HEMOGLOBIN 31.9 pg (28-32); MEAN CORPUSCULAR HGB CONC 32.5 g/dL (31-35); MONOCYTES # (AUTO) 0.7 (0.2-0.8); MONOCYTES % 11.6 % (4.4-11.3); NEUTROPHILS # (AUTO) 4.7 (2.1-6.9); NEUTROPHILS % 74.4 % (38.7-80.0); PLATELET COUNT 347 x10e3/uL (140-360); RED BLOOD COUNT 3.45 x10e6/uL (3.6-5.1); RED CELL DISTRIBUTION WIDTH 15.6 % (11.7-14.4)
[2019-04-05 21:47] LABS: INR 1.04; PROTHROMBIN TIME 14.2 seconds (11.9-14.5)
[2019-04-05 21:48] LABS: PARTIAL THROMBOPLASTIN TIME 31.9 seconds (23.8-35.5)
[2019-04-05 21:57] LABS: ALBUMIN 3.4 g/dL (3.5-5.0); CALCIUM 9.3 mg/dL (8.4-10.2); CREATININE, SERUM 2.64 mg/dL (0.57-1.11)
[2019-04-05 22:07] LABS: CREATINE KINASE MB 0.7 ng/mL (0-5.0)
== END 2019-04-05 22:45 | disposition home or self-care (01) ==
LOC: ER 17:58
DX: M79.89 Other specified soft tissue disorders (principal); R60.9 Edema, unspecified; I50.9 Heart failure, unspecified; I10 Essential (primary) hypertension; E11.9 Type 2 diabetes mellitus without complications; E78.5 Hyperlipidemia, unspecified; Z86.73 Personal history of transient ischemic attack (TIA), and cerebral infarction without residual deficits; Z98.0 Intestinal bypass and anastomosis status
CPT/HCPCS: 36415; 71045; 80053; 82550; 82553; 83880; 84484; 85025; 85610; 85730; 93971

== ENCOUNTER 2019-04-22 08:50 | Inpatient (IN) | payer MEDICARE ==
[~2019-04-22] VITALS: Ht 162.6 cm; Wt 62.2 kg
[2019-04-22] MEDS ORDERED: ONDANSETRON HCL INJ 2MG/ML 2ML 2 MG/ML VIAL IV STA (08:53)
[2019-04-22] MEDS ORDERED: MORPHINE SULFATE INJ 4 MG/ML INJ 1ML IV PRN (09:00)
--- NOTE | 2019-04-22 09:34 | Diagnostic Imaging Report ---
EXAMINATION: HIP LEFT 2-3 VW (+/- PELVIS) INDICATION: Trauma COMPARISON: None FINDINGS: Subtle cortical irregularity suggestive of possible nondisplaced subcapital left proximal femur fracture. Alignment remains near-anatomic. No other acute fractures identified. Mild degenerative changes of both hip joints. Phleboliths in the pelvis. Nonobstructive bowel gas pattern. IMPRESSION: Possible nondisplaced subcapital left proximal femur fracture. CT is recommended for further evaluation. Signed by: Dimple Apple MD on 04/22/2019 9:31 AM
[2019-04-22] MEDS ORDERED: MORPHINE SULFATE INJ 4 MG/ML INJ 1ML IV STA (10:07)
[2019-04-22] MEDS ORDERED: SODIUM CHLORIDE 0.9% 1000ML 1,000 ML IV SCH (10:08)
[2019-04-22] MEDS ORDERED: ONDANSETRON HCL INJ 2MG/ML 2ML 2 MG/ML VIAL IV PRN (10:15)
--- NOTE | 2019-04-22 10:47 | Diagnostic Imaging Report ---
EXAM: CT Left Hip WITHOUT contrast INDICATION: Trauma COMPARISON: None. TECHNIQUE: The left hip was scanned utilizing a multidetector helical scanner from the iliac crest to the proximal thigh without administration of IV contrast. Coronal and sagittal reformations were obtained. Routine protocol was performed. IV CONTRAST: None. ORAL CONTRAST: Water RADIATION DOSE: Total DLP: 135 mGy*cm COMPLICATIONS: None FINDINGS: Minimally displaced minimally impacted subcapital left proximal femur fracture. No additional acute fractures identified. Small left hip joint effusion. Atherosclerotic arterial calcifications. No soft tissue mass or focal fluid collection. Diverticulosis without CT evidence of diverticulitis. IMPRESSION: Minimally displaced and minimally impacted subcapital left proximal femur fracture. Signed by: Dimple Apple MD on 04/22/2019 10:44 AM
[2019-04-22 11:24] LABS: INR 0.96; PROTHROMBIN TIME 13.4 seconds (11.9-14.5)
[2019-04-22] MEDS ORDERED: HYDRALAZINE HCL 20 MG/ML VIAL IV PRN (11:30)
[2019-04-22 11:31] LABS: ALBUMIN 3.2 g/dL (3.5-5.0); ANION GAP 13.8 mmol/L (8-16); BASOPHILS % 0.4 % (0.0-1.0); CALCIUM 9.4 mg/dL (8.4-10.2); CREATININE, SERUM 3.69 mg/dL (0.57-1.11); EOSINOPHILS # (AUTO) 0.1 (0.0-0.4); EOSINOPHILS % 0.9 % (0.0-6.0); HEMATOCRIT 32.1 % (34.2-44.1); HEMOGLOBIN 10.1 g/dL (12.0-16.0); LYMPHOCYTES # (AUTO) 0.7 (1.0-3.2); LYMPHOCYTES % 10.5 % (18.0-39.1); MEAN CORPUSCULAR HEMOGLOBIN 31.6 pg (28-32); MEAN CORPUSCULAR HGB CONC 31.5 g/dL (31-35); MEAN CORPUSCULAR VOLUME 100.3 fL (81-99); MONOCYTES # (AUTO) 0.6 (0.2-0.8); MONOCYTES % 9.4 % (4.4-11.3); NEUTROPHILS # (AUTO) 5.2 (2.1-6.9); NEUTROPHILS % 78.2 % (38.7-80.0); PLATELET COUNT 247 x10e3/uL (140-360); POTASSIUM 4.8 mmol/L (3.5-5.1); RED CELL DISTRIBUTION WIDTH 15.1 % (11.7-14.4)
--- NOTE | 2019-04-22 11:44 | NUR ---
RCD PT FROM ER BY BED PT IS ALERT AND ORIENTED VITALS CHECKED PT RESTING ON BED HAVING FRACTURE ON LEFT HIP SHE DONT HAVE ANY PAIN ADMISSION ASSESSMENT AND HISTORY DONE IV PATENT BY SALINE FLUSH INSTRUCTED PT REGARDING HOSPITAL POLICY AND ROUTINE BED LOW AND LOCKED CALL LIGHT IN REACH
[2019-04-22 11:50] VITALS: BP 194/103
--- NOTE | 2019-04-22 12:28 | Diagnostic Imaging Report ---
EXAMINATION: CHEST SINGLE (PORTABLE) INDICATION: Preoperative COMPARISON: Chest radiograph 12/21/2018 FINDINGS: LINES/TUBES:EKG leads overlie the chest. LUNGS:The lungs are mildly hyperinflated. There is perihilar fullness and indistinctness of the pulmonary vasculature. PLEURA:No pleural effusion or pneumothorax. MEDIASTINUM:Cardiomediastinal silhouette is stably enlarged. BONES/SOFT TISSUES:No acute osseous injury. ABDOMEN:No free air under the diaphragm. IMPRESSION: Cardiomegaly and mild interstitial pulmonary edema. No focal pneumonia or pulmonary edema. Signed by: Dimple Apple MD on 04/22/2019 12:25 PM
[2019-04-22 12:34] VITALS: BP 194/103
[2019-04-22 12:38] VITALS: BP 194/103
--- NOTE | 2019-04-22 12:50 | NUR ---
PAGEElizabeth AND TALKED DR SANDOVAL REGARDING CONSULTATION HE SAID TALKED THE ORTHO SURGEON AND CONFIRM THE SURGERY IF HE OK PT CAN DO THE DIALYSIS TODAY SO PAGED DR GONZALES
--- NOTE | 2019-04-22 13:00 | NUR ---
AC TO OR NURSE PT SCHEDULED FOR SURGERY ON TOMORROW DONT KNOW WHAT KIND OF SURGERY
--- NOTE | 2019-04-22 14:15 | NUR ---
AC TO BLEACHER SULF[facility] PULP PT NEED CARDIAC CLEARANCE BEFORE SURGERY SO PAGED AND TALKED DR Willa TSANG HE SAID HE WILL TAKE CARE ,AND PT HAVE C/O RASPATORY DISTRESS NOTIFIED GOT NEW ORDERS
--- NOTE | 2019-04-22 14:15 | NUR ---
AC TO [facility] OPERATOR PT NEED DIALYSIS TODAY NIGHT SO PAGED DR ALTMAN IE TO NOTIFY THAT
[2019-04-22] MEDS ORDERED: ALBUTEROL/IPRATROPIUM 3 ML NEB NEB PRN (14:30)
--- NOTE | 2019-04-22 14:30 | NUR ---
DR CAMPBELL RETURNED THE CALL AND GOT THE ORDER TO DIALYSIS TODAY
[2019-04-22] MEDS: MORPHINE SULFATE INJ 4 MG/ML INJ 1ML IV PRN ×2 (14:31→20:30)
--- NOTE | 2019-04-22 15:46 | NUR ---
PAGED AND TALKED TO [facility] ON [facility] ON TODAY SHE SAID WILL ARRANGE TODAY
[2019-04-22 16:00] VITALS: BP 174/79
[2019-04-22] MEDS ORDERED: FUROSEMIDE INJ 10 MG/ML 4 ML VIAL IV ONE (17:45)
--- NOTE | 2019-04-22 17:53 | NUR ---
PAGED AND TALKED DR WESTBROOK REGARDING CARDIOLOGY CLEARANCE BEFORE SURGERY SHE SAID SHE COMING TO SEE THE PT
[2019-04-22] MEDS: CARVEDILOL 12.5 MG TAB PO SCH (18:00)
[2019-04-22] MEDS: SEVELAMER CARBONATE 800 MG TAB PO SCH (18:00)
--- NOTE | 2019-04-22 18:02 | NUR ---
ORTHOPEDIC CONSULTATION 58 year old community ambulator without assistive device presents to the ED after a mechanical fall with left hip pain. Patient states she land left leg. Denies numbness, paresthesias or loss of distal motor function. Denies pain in any other extremity PMdHx CHF, Pneumonia, CVA, Pulmonary Edema, ESRD on HD, Hypoxia, COPD, HRN, COPD Allergies: NKDA SurgHx: Non-contributory FamHx: Non-contributory SocHx: Former Tobacco, quit 3 months ago. Denies EtOH and Drug Use T 99.1, HR 105 RR 22 BP 174/79 O2 94% Left Leg - No open lesions or sores, no gross deformity Unable to straight leg raise, pain with log roll and heal strike Motor: + EHL, FHL, TA, G/S Sensation grossly intact Pulses + DP, Post tib Compartments soft Negative calf tenderness Xrays and CT demonstrate left femur subcapital neck fracture 58 year old F with left femur subcapital neck fracture Plan for OR after medical evaluation for left hip pinning Analgesics DVT Prophylaxis Bedrest IVF while NPO NPO except meds after midnight Hold anticoagulation after midnight Unable to perform procedure today due to limited OR availability. Graciela Pritchard, DO [facility]
--- NOTE | 2019-04-22 19:15 | NUR ---
PT RESTING ON BED BED SIDE REPORT GIVEN TO ONCOMING NURSE
--- NOTE | 2019-04-22 19:15 | NUR ---
REPORT RECEIVED FROM DAY RN. PT IS ALERT AND ORIENTED X3. AV FISTULA LT ARM. BRUITT AND THRILL PRESENT. RESPIRATIONS EVEN AND UNLABORED. 20 G SL IN RT ARM. PT TO HAVE DIALYSIS THIS PM- CONSENT OBTAINED BY SHILA RN. PT IN SEMI-FOWLERS POSITION IN BED. PT DENIES PAIN. CALL LIGHT WITHIN REACH. BED LOCKED AND IN LOW POSITION.
--- NOTE | 2019-04-22 19:15 | NUR ---
REPORT GIVEN TO THE NIGHT NURSE PT IS GOING FOR SURGERY ON TOMORROW AT 0630 ,LAB POTASSIUM BLOOD SUGAR TO BE READY AND SHE NEED TO TAKE CONSENT FOR SURGERY ALSO SHE SAID SHE UNDERSTOOD
[2019-04-22] MEDS ORDERED: SODIUM CHLORIDE 0.9% 1000ML 1,000 ML ONE (19:33)
[2019-04-22] MEDS ORDERED: SODIUM CHLORIDE 0.9% 250ML 500 ML IV PRN (19:45)
[2019-04-22] MEDS ORDERED: SODIUM CHLORIDE 0.9% 1000ML 2,000 ML IV PRN (19:45)
[2019-04-22 20:08] VITALS: BP 116/65
[2019-04-22 21:00] VITALS: BP 116/65
[2019-04-22] MEDS ORDERED: ATORVASTATIN 20 MG TAB PO SCH (21:00)
[2019-04-22] MEDS: ATORVASTATIN 40 MG TAB PO SCH (21:48)
[2019-04-23] VITALS (7 sets, daily range): BP systolic 120–185; BP diastolic 58–82
--- NOTE | 2019-04-23 00:40 | Consultation ---
DATE OF CONSULTATION: 04/22/2019 Renal Consultation REASON FOR CONSULTATION: End-stage renal disease. HISTORY OF PRESENT ILLNESS: A 58-year-old female with end-stage renal disease, on hemodialysis Friday, Friday, and Friday, who presented to [facility] after a fall and was found to have a hip fracture. The patient was admitted and Nephrology consultation was called. The patient planned for surgery on 04/23/2019. REVIEW OF SYSTEMS: A 12-point review of systems completed. All systems negative other than in the HPI above. PAST MEDICAL HISTORY: 1. End-stage renal disease, on hemodialysis Friday, Friday, and Friday. 2. Congestive heart failure. 3. History of CVA. 4. Hypertension. 5. Diabetes type 2. 6. Coronary artery disease with history of PTCA. 7. Anemia secondary to chronic kidney disease. PAST SURGICAL HISTORY: Left upper extremity AV fistula. SOCIAL HISTORY: Positive history of tobacco. No alcohol. No IV drugs. FAMILY HISTORY: Sister with chronic kidney disease. ALLERGIES: NO KNOWN DRUG ALLERGIES. CURRENT MEDICATIONS: See list. PHYSICAL EXAMINATION: VITAL SIGNS: Blood pressure 174/79, pulse 105, respiratory rate 22, and temperature 99.1. GENERAL: No apparent distress. HEENT: Oropharynx clear. No scleral icterus. No periorbital edema. NECK: Supple. No elevation in jugular venous pressure. No lymphadenopathy. CHEST: Clear to auscultation anteriorly bilaterally. CARDIOVASCULAR: Regular rhythm. No murmurs or rubs. ABDOMEN: Soft. Positive bowel sounds. No tenderness. No rebound. EXTREMITIES: Trace edema. LABORATORY DATA: Sodium 136, potassium 4.8, chloride 98, CO2 29, BUN 26, creatinine 3.69, calcium 9.4, and albumin 3.2. White count 6.9, hemoglobin 10.1, hematocrit 32.1, and platelets 247. ASSESSMENT AND PLAN: 1. End-stage renal disease. The patient to have surgery on 04/23/2019, so we will optimize her and do dialysis this evening and then again on 04/24/2019. 2. Anemia secondary to chronic kidney disease. We will add Epogen if hemoglobin drops below 10. 3. Lytes acceptable. 4. Hypertension. Resume home medications. 5. Diabetes per primary team. 6. Minimally displaced and minimally impacted subcapital left proximal femur fracture. Orthopedics has been consulted. MD BLAS Morgan/EVER /[id number]
[2019-04-23] MEDS: MORPHINE SULFATE INJ 4 MG/ML INJ 1ML IV PRN ×2 (01:14→11:00)
--- NOTE | 2019-04-23 02:14 | Consultation ---
DATE OF CONSULTATION: 04/22/2019 Cardiology Consultation REQUESTING PHYSICIAN: Alvarez Hernandez MD REASON FOR CONSULTATION: Preop evaluation. HISTORY OF PRESENT ILLNESS: This is a 58-year-old woman with history of hypertension, hyperlipidemia, diabetes mellitus, coronary artery disease, status post LAD PCI, end-stage renal disease, on Friday, Friday, Friday hemodialysis, COPD, history of CVA with residual left-sided weakness, and colon cancer status post partial colectomy, who presents after a fall. The patient reports she has been in her usual state of health until today when she tripped over her cat and fell. She presented to the ER for evaluation of hip pain and was found to have a minimally displaced and minimally impacted subcapital left proximal femur fracture. Cardiology is consulted for preop evaluation. The patient denies any chest pain, palpitations, or lightheadedness. She states she has chronic shortness of breath and does notice edema and PND occasionally before her hemodialysis days. She states she is able to walk a block at baseline. The patient reports she was able to walk a block without symptoms prior to her fall. REVIEW OF SYSTEMS: Negative except as per HPI. PAST MEDICAL HISTORY: 1. Coronary artery disease, status post LAD PCI on October 28, 2018. 2. Hypertension. 3. Hyperlipidemia. 4. Diabetes mellitus. 5. End-stage renal disease, on Friday, Friday, Friday hemodialysis. 6. COPD. 7. History of CVA with residual left-sided weakness. 8. Colon cancer, status post partial colectomy. PAST SURGICAL HISTORY: 1. Left AV fistula. 2. Partial colectomy. ALLERGIES: NO KNOWN DRUG ALLERGIES. MEDICATIONS: Please see medication list. SOCIAL HISTORY: Smokes 1-1/2 to 2 packs a day for the last 40 years. No alcohol or drugs. FAMILY HISTORY: Pertinent for sister and 2 brothers with coronary stents. PHYSICAL EXAMINATION: VITAL SIGNS: Temperature 99.1 degrees, pulse 105, respiratory rate 22, blood pressure 174/79, oxygen saturation 94% on 3 L nasal cannula. GENERAL: Awake, alert, well-developed, well-nourished woman, in no acute distress. HEENT: Normocephalic, atraumatic. Pupils are equal. No scleral icterus. NECK: Supple. No thyromegaly or cervical lymphadenopathy. No carotid bruits. LUNGS: Clear to auscultation bilaterally. No wheezes or crackles. CARDIOVASCULAR: Normal rate. Regular rhythm. No murmur. Normal S1, S2. ABDOMEN: Soft and nontender. EXTREMITIES: No edema. NEUROLOGIC: Nonfocal exam. LABORATORY DATA: WBC 6.69, hemoglobin 10.1, hematocrit 32.1, platelets 247. Sodium 138, potassium 4.8, chloride 98, CO2 of 29, BUN 26, creatinine 3.69. EKG, normal sinus rhythm, biatrial enlargement, rightward axis, anterior infarct age undetermined. IMPRESSION: 1. Left hip fracture. 2. Coronary artery disease, status post LAD PCI on October 28, 2018. 3. Hypertension. 4. Hyperlipidemia. 5. Diabetes mellitus. 6. End-stage renal disease, on Friday, Friday, Friday hemodialysis. 7. Chronic obstructive pulmonary disease. 8. History of cerebrovascular accident with residual left-sided weakness. 9. Colon cancer, status post partial colectomy. RECOMMENDATIONS: The patient may proceed with surgery without further cardiac evaluation. Recommend continuation of dual antiplatelet therapy as her stent is less than 6 months old. Continue home cardiac medications pain control. We will evaluate blood pressure response to these interventions. Monitor patient on telemetry while admitted. Volume management per Nephrology given end-stage renal disease. The patient does have moderate mitral stenosis. Monitor her hemodynamics closely. Avoid hypotension, hypovolemia as well as hypervolemia. Thank you for this consult. We will continue to follow. Fartun Kathleen MD ABS/MODL /[id number]
[2019-04-23] MEDS: TRELEGY INH SCH (06:00)
[2019-04-23] MEDS ORDERED: BUPIVACAINE 0.25% 30ML SDV INJ ONE (06:15)
[2019-04-23] MEDS ORDERED: LIDOCAINE 1% W/EPINEPHRINE 20 ML VIAL ONE (06:15)
--- NOTE | 2019-04-23 07:46 | NUR ---
Operative Note - Orthopedic Surgery PREOPERATIVE DIAGNOSES: Left Subcapital Impacted Femoral Neck Fracture POSTOPERATIVE DIAGNOSES: RLeft Subcapital Impacted Femoral Neck Fracture OPERATION PERFORMED: Closed Reduction, Percutaneous Pinning Left Hip, Flouroscopic interpretation SURGEON: Graciela Pritchard DO ANESTHESIA: General. EBL: 10cc COMPLICATIONS: None IMPLANTS: DESCRIPTION OF OPERATION: The patient was taken to the operating room and placed under general anesthesia. The left lower extremity and upper extremity had all bony prominences well padded and secured. Preoperative Ancef antibiotics were given. The patients left lower extremities were sterilely prepped and draped in the usual fashion. A time-out was performed to identify the correct extremity. The left hip was visualized under flouroscopy and the hip was adducted to improve the position of the fracture and to allow for pinning. Next and incisio n was made lateral to the greater trochanter. A guide pin was introduced throug h the inferior portion neck and head under flouroscopic guidance and deemed to be in adequate position. Two other guide pins were inserted under similar fashi on along the superoanterior and superoposterior portion of the neck and head. The intraosseous length of the pin was measured and three Asnis III Partially Threaded Cannulated Screws were introduced into the neck and head. The anterosuperior screw was 6.5 x 80mm TL 20 mm, posterosuperior screw was 8.0 x 75 mm TL 40mm and inferior 6.5 x 80 mm TL 20mm. The guide pins were removed and final imaging was taken and interpreted to be in adequate position. The incisions were thoroughly irrigated, and the fascia was closed with 0 vicryl, and the subcutaneous tissue was closed with 2-0 vicryl. 3-0 Monocryl were placed to close the skin and the skin was then cleaned. 0.25% Bupivacaine was injected into the incision site. An Aquacel dressing was placed . The patient was transferred to PACU under stable condition
[2019-04-23] MEDS: SEVELAMER CARBONATE 800 MG TAB PO SCH ×3 (08:00→16:35)
[2019-04-23] MEDS ORDERED: HYDROMORPHONE 1MG/1ML INJ ONE (08:32)
[2019-04-23] MEDS ORDERED: NON-FORMULARY MEDICATION (Escitalopram Oxalate (Lexapro) 20 MG) PO SCH (09:00)
[2019-04-23] MEDS ORDERED: INSULIN DETEMIR 23 UNIT SQ SCH (09:00)
--- NOTE | 2019-04-23 09:36 | NUR ---
REPORT GIVEN TO DEEPAK DONOHUE
--- NOTE | 2019-04-23 09:40 | NUR ---
PTS BELONGINGS HANDED OVER TO [facility] YARN DYER ( PHONE ,GLASS,I PAD AND BAG)
[2019-04-23] MEDS: ESCITALOPRAM OXALATE 10 MG TAB PO SCH (11:00)
[2019-04-23] MEDS: INSULIN GLARGINE 100 UNITS/ML VIAL SQ SCH (11:00)
[2019-04-23] MEDS: CARVEDILOL 12.5 MG TAB PO SCH ×2 (11:00→16:35)
[2019-04-23] MEDS: CELECOXIB 200 MG CAP PO SCH ×2 (11:00→16:35)
[2019-04-23] MEDS: NIFEDIPINE CR 30 MG TAB PO SCH (11:00)
--- NOTE | 2019-04-23 12:45 | NUR ---
Patient arrived to unit at 10AM. Patient drowsy, responds to sound. Oriented to person, place, time. O2 at 3LNC. Dressing noted to left hip and intact. No active bleeding noted. Right hand IV patent and saline locked. Bed alarm set. HOB elevated. Bed low and locked. Siderails up x2. Call light in reach.
--- NOTE | 2019-04-23 13:01 | Progress Note ---
DATE: 04/23/2019 Cardiology Progress Note SUBJECTIVE: The patient denies chest pain or shortness of breath. She is status post closed reduction and percutaneous pinning of the left hip this morning. OBJECTIVE: VITAL SIGNS: Temperature 98.7 degrees, pulse 80, respiratory rate 16, blood pressure 145/77, and oxygen saturation 95% on room air. GENERAL: Elderly woman, in no acute distress, awake and alert. LUNGS: Clear to auscultation bilaterally. No wheezes or crackles. CARDIOVASCULAR: Normal rate, regular rhythm. No murmur. Normal S1 and S2. ABDOMEN: Soft and nontender. EXTREMITIES: No edema. CARDIAC MEDICATIONS: 1. Atorvastatin 40 mg p.o. at bedtime. 2. Carvedilol 25 mg p.o. b.i.d. LABORATORY DATA: None today. IMPRESSION: 1. Left hip fracture. 2. Coronary artery disease, status post left anterior descending percutaneous coronary intervention on October 28, 2018. 3. Hypertension. 4. Hyperlipidemia. 5. Diabetes mellitus. 6. End-stage renal disease, on Friday, Friday, Friday hemodialysis. 7. Chronic obstructive pulmonary disease. 8. History of cerebrovascular accident with residual left-sided weakness. 9. Colon cancer, status post partial colectomy. RECOMMENDATIONS: The patient is status post surgery, resume dual anti-platelet therapy as her stent is less than 6-month-old. Continue current cardiac medications otherwise. Blood pressure is labile, though for the most part improved. We will continue to monitor. Keep the patient on telemetry while admitted. Volume management per Nephrology given end-stage renal disease. Thank you for this consult. We will continue to follow. Fartun Kathleen MD ABS/MODL /[id number]
[2019-04-23] MEDS ORDERED: PHENYLEPHRINE HCL 1% 10 MG/ML VIAL ONE (14:32)
[2019-04-23] MEDS ORDERED: PROPOFOL IV EMULSION 10 MG/ML 20 ML VIAL ONE (14:32)
[2019-04-23] MEDS ORDERED: ONDANSETRON HCL INJ 2MG/ML 2ML 2 MG/ML VIAL ONE (14:32)
[2019-04-23] MEDS ORDERED: CEFAZOLIN SOD 1 GM VIAL ONE (14:32)
[2019-04-23] MEDS ORDERED: LIDOCAINE HCL 2% LOCAL INJ 5 ML SDV VIAL INJ ONE (14:32)
[2019-04-23] MEDS ORDERED: SEVOFLURANE INHAL SOLN 250 ML PEN BTL ONE (14:32)
[2019-04-23] MEDS: CEFAZOLIN SOD 1 GM/NS 50ML 50 ML IV SCH ×2 (15:00→21:45)
[2019-04-23] MEDS ORDERED: MIDAZOLAM HCL 2 MG/2 ML VIAL ONE (15:10)
[2019-04-23] MEDS ORDERED: FENTANYL CITRATE/PF 100MCG/2 ML INJ ONE (15:10)
--- NOTE | 2019-04-23 19:23 | NUR ---
Patient resting in bed with eyes closed. Acyanotic on room air. No distress noted. Bed alarm set. Call light in reach. Report given to CHARANJIT Bravo
[2019-04-23] MEDS: ATORVASTATIN 40 MG TAB PO SCH (21:00)
--- NOTE | 2019-04-23 21:45 | NUR ---
PATIENT RESTING IN BED BOTH EYES CLOSED IN STABLE CONDITION, NO SIGNS OF RESPIRATORY DISTRESS NOTED. PATIENT VOICES EXHAUSTION AND WISHES TO ONLY SLEEP AND ALSO VOICES NO PAIN AT THIS TIME. IV ANTIBIOTICS ARE RUNNING AT ORDERED RATE AND DRESSING ON LEFT HIP IS CLEAN DRY AND INTACT. BED IS IN LOWEST POSITION, BOTH SIDE RAILS ARE UP, BED ALARM IS ON, CALL LIGHT IS WITHIN REACH, WILL CONTINUE TO MONITOR.
[2019-04-24] VITALS (7 sets, daily range): BP systolic 94–128; BP diastolic 50–63
[2019-04-24 05:54] LABS: BASOPHILS % 0.5 % (0.0-1.0); EOSINOPHILS # (AUTO) 0.1 (0.0-0.4); EOSINOPHILS % 1.1 % (0.0-6.0); HEMATOCRIT 28.6 % (34.2-44.1); HEMOGLOBIN 8.8 g/dL (12.0-16.0); LYMPHOCYTES # (AUTO) 0.8 (1.0-3.2); LYMPHOCYTES % 13.1 % (18.0-39.1); MEAN CORPUSCULAR HGB CONC 30.8 g/dL (31-35); MONOCYTES % 16.1 % (4.4-11.3); NEUTROPHILS # (AUTO) 4.4 (2.1-6.9); NEUTROPHILS % 68.6 % (38.7-80.0); PLATELET COUNT 256 x10e3/uL (140-360); RED BLOOD COUNT 2.75 x10e6/uL (3.6-5.1); RED CELL DISTRIBUTION WIDTH 15.8 % (11.7-14.4)
[2019-04-24] MEDS: CEFAZOLIN SOD 1 GM/NS 50ML 50 ML IV SCH (05:55)
[2019-04-24] MEDS: TRELEGY INH SCH (06:00)
[2019-04-24 06:05] LABS: CREATININE, SERUM 5.05 mg/dL (0.57-1.11); PHOSPHORUS 6.1 MG/DL (2.3-4.7)
--- NOTE | 2019-04-24 07:20 | NUR ---
PT ALERT RESP EVEN AND UNLABORED AT THIS TIME NO DISTRESS NOTED AT THIS TIME, CALL LIGHT IN REACH.
[2019-04-24] MEDS: CELECOXIB 200 MG CAP PO SCH ×2 (08:33→17:00)
[2019-04-24] MEDS: SEVELAMER CARBONATE 800 MG TAB PO SCH ×3 (08:34→17:00)
[2019-04-24] MEDS: ESCITALOPRAM OXALATE 10 MG TAB PO SCH (08:34)
[2019-04-24] MEDS: ASPIRIN 81 MG CHEW TAB PO SCH (08:34)
[2019-04-24] MEDS: CLOPIDOGREL BISULFATE 75 MG TAB PO SCH (08:35)
[2019-04-24] MEDS ORDERED: TICAGRELOR 90 MG TABLET PO SCH (09:00)
[2019-04-24] MEDS: NIFEDIPINE CR 30 MG TAB PO SCH (09:00)
[2019-04-24] MEDS: CARVEDILOL 12.5 MG TAB PO SCH (09:00)
[2019-04-24] MEDS: INSULIN GLARGINE 100 UNITS/ML VIAL SQ SCH (09:00)
--- NOTE | 2019-04-24 09:30 | NUR ---
PT WORK WITH PT SAT AT SIDE OF BED AT THIS TIME.
--- NOTE | 2019-04-24 11:30 | NUR ---
DIALYSIS NURSE HERE FOR DIALYSIS TREATMENT, PT B/P LOW, 85/50, DIALYSIS NURSE CALLED RESIDENTIAL TREATMENT STAFF AND DI NOT DO DIALYSIS BECAUSE OF LOW B/P.
--- NOTE | 2019-04-24 13:00 | NUR ---
PT REPOSITIONED , NO DISTRESS NOTED AT THIS TIME.
--- NOTE | 2019-04-24 13:07 | NUR ---
ORTHOPEDIC PROGRESS NOTE Patient seen & examined. Patient extremely somnolent. Unable to respond to commands but opens eyes upon stimulus VS 98.8 HR 78 RR 19 BP 94/50 O2 98% Left Hip - Dressing clean, dry and intact Foam tape and ABD removed, Aquacel intact clean and dry Motor & Sensation unable to access due to somnolence Pulses + DP, Post tib Compartments soft Negative calf tenderness 8.8/28.6 58 yo F s/p Left Hip CRPP POD#1 Analgesics DVT Prophylaxis PT WBAT Orthopedically stable for discharge Keep dressing clean, dry and intact, Foam tape and ABD removed. May follow up as outpatient in 2 weeks. Reconsult PRN Thank you for the consultation DO TREV [facility]
--- NOTE | 2019-04-24 13:40 | NUR ---
PT OFF UNIT FOR CT OF BRAIN.
--- NOTE | 2019-04-24 14:09 | NUR ---
PT RETURN FROM CT RESP EVEN AND UNLABORED.
--- NOTE | 2019-04-24 14:37 | Diagnostic Imaging Report ---
Examination: CT head without contrast Clinical Indication: Lethargy. Technique: Transaxial noncontrast images from the skull base through the vertex were obtained. Sagittal and coronal reformatted images were done. Dose modulation, iterative reconstruction, and/or weight based adjustment of the mA/kV was utilized to reduce the radiation dose to as low as reasonably achievable. Comparison: None. Findings: Scalp: No abnormalities. Bones: Intact. No fractures. No blastic or lytic lesions. Brain sulci: Mild volume loss for patient's age. Ventricles: No hydrocephalus. Extra-axial space: No abnormalities. Parenchyma: There are patchy areas of low-attenuation within subcortical and periventricular white matter, nonspecific, but could represent microvascular ischemic disease. Chronic lacunar infarct of the left caudate head, putamen and thalamus, No masses, hemorrhage, or acute or chronic cortical based vascular insults. Suprasellar region: No abnormalities. Craniocervical junction: The foramen magnum is patent. No Chiari one malformation. Incidental findings: Opacified partially visualized left maxillary sinus. Impression: 1. No acute intracranial finding. 2. Chronic microvascular ischemic change. Chronic lacunar infarcts as above. Signed by: Dr. Nan Muro M.D. on 04/24/2019 2:33 PM
[2019-04-24] MEDS: CARVEDILOL 3.125 MG TAB PO SCH (17:00)
--- NOTE | 2019-04-24 18:57 | Progress Note ---
DATE: 04/24/2019 Cardiology Progress Note SUBJECTIVE: The patient denies chest pain or shortness of breath. OBJECTIVE: VITAL SIGNS: Temperature 98.6 degrees, pulse 74, respiratory rate 20, blood pressure 103/56, oxygen saturation 96% on 3 L nasal cannula. GENERAL: Elderly woman, no acute distress. Awake and alert. LUNGS: Clear to auscultation bilaterally. No wheezes or crackles. CARDIOVASCULAR: Normal rate. Regular rhythm. No murmur. Normal S1, S2. ABDOMEN: Soft, nontender. EXTREMITIES: No edema. CARDIAC MEDICATIONS: Plavix 75 mg p.o. daily, aspirin 81 mg p.o. daily, atorvastatin 40 mg p.o. at bedtime, nifedipine 30 mg p.o. daily, carvedilol 25 mg p.o. b.i.d. LABORATORY DATA: WBC 6.39, hemoglobin 8.8, hematocrit 28.6, platelets 256. Sodium 138, potassium 5, chloride 101, CO2 of 28, BUN 31, creatinine 5.05. IMPRESSION: 1. Left hip fracture. 2. Coronary artery disease status post left anterior descending artery, percutaneous coronary intervention on October 28, 2018. 3. Hypertension. 4. Hyperlipidemia. 5. Diabetes mellitus. 6. End-stage renal disease, on Friday, Friday, Friday, hemodialysis. 7. Chronic obstructive pulmonary disease. 8. History of cerebrovascular accident with residual left-sided weakness. 9. Colon cancer, status post partial colectomy. RECOMMENDATIONS: Continue dual antiplatelet therapy after stent is less than 6-month-old. Continue current cardiac medications. Blood pressure medications, however, currently on hold due to hypotension. We will monitor closely. If she remains hypotensive, we will need to decrease her antihypertensive regimen. Volume management per Nephrology given end-stage renal disease. Thank you for this consult. We will continue to follow. Fartun Kathleen MD ABS/MODL /[id number]
--- NOTE | 2019-04-24 19:05 | NUR ---
Received bedside report from day nurse. Patient resting in bed, arousable to voice and touch, no s/s of distress at this time. All safety measures in place. Will continue to monitor.
--- NOTE | 2019-04-24 19:06 | NUR ---
WALKING ROUNDS COMPLETE, REPORT HANDED OFF TO ON COMING NURSE.
--- NOTE | 2019-04-24 19:17 | NUR ---
WALKING ROUNDS COMPLETE, REPORT HANDED OFF TO ON COMING NURSE.
[2019-04-24] MEDS: ATORVASTATIN 40 MG TAB PO SCH (20:21)
--- NOTE | 2019-04-24 21:53 | NUR ---
pt unable to wake up too lethargic and unsafe to stand much less sit at eob with max a /tota x 2 ...f/u tomorrow Addendum: 04/24/19 at 2155 by Ankit Dobbins PTA Amended: Links added.
[2019-04-25] VITALS (8 sets, daily range): BP systolic 108–137; BP diastolic 55–66
--- NOTE | 2019-04-25 02:03 | NUR ---
Dr. Marshall here to see patient. Received orders to schedule patient for hemodialysis session today since patient is no longer hypotensive. Will place call to [facility].
--- NOTE | 2019-04-25 02:06 | NUR ---
Per Dr. Marshall, order ABG, BMP, CBC labs in the morning, and give 8000 Epogen with every dialysis.
[2019-04-25] MEDS ORDERED: EPOETIN ALFA-EPBX 10,000 UNIT/ML VIAL SC SCH ×2 (02:15→19:00)
--- NOTE | 2019-04-25 02:15 | NUR ---
Called [facility]. Spoke with Dominga and scheduled patient for hemodialysis today. Per Dr. Marshall, have dialysis nurse call him with ABG results prior to starting. Will pass along to day shift RN.
[2019-04-25] MEDS: TRELEGY INH SCH (05:04)
[2019-04-25 05:26] LABS: BASOPHILS % 0.4 % (0.0-1.0); EOSINOPHILS # (AUTO) 0.1 (0.0-0.4); EOSINOPHILS % 0.7 % (0.0-6.0); HEMATOCRIT 27.8 % (34.2-44.1); HEMOGLOBIN 8.5 g/dL (12.0-16.0); LYMPHOCYTES # (AUTO) 0.9 (1.0-3.2); LYMPHOCYTES % 12.6 % (18.0-39.1); MEAN CORPUSCULAR HEMOGLOBIN 31.6 pg (28-32); MEAN CORPUSCULAR HGB CONC 30.6 g/dL (31-35); MEAN CORPUSCULAR VOLUME 103.3 fL (81-99); MONOCYTES # (AUTO) 1.1 (0.2-0.8); MONOCYTES % 16.3 % (4.4-11.3); NEUTROPHILS # (AUTO) 4.9 (2.1-6.9); NEUTROPHILS % 69.7 % (38.7-80.0); PLATELET COUNT 318 x10e3/uL (140-360); RED BLOOD COUNT 2.69 x10e6/uL (3.6-5.1); RED CELL DISTRIBUTION WIDTH 15.9 % (11.7-14.4)
[2019-04-25 05:49] LABS: ANION GAP 19.5 mmol/L (8-16); CALCIUM 9.2 mg/dL (8.4-10.2); CREATININE, SERUM 7.66 mg/dL (0.57-1.11); POTASSIUM 5.5 mmol/L (3.5-5.1)
--- NOTE | 2019-04-25 07:04 | NUR ---
Bedside report given to day nurse. Patient resting in bed, no s/s of distress at this time. All safety measures in place.
[2019-04-25] MEDS: CELECOXIB 200 MG CAP PO SCH ×2 (08:00→17:00)
[2019-04-25] MEDS: CARVEDILOL 3.125 MG TAB PO SCH ×2 (08:00→17:00)
--- NOTE | 2019-04-25 08:15 | NUR ---
ORTHOPEDIC PROGRESS NOTE Patient seen & examined resting at bedside. Patient continues to be somnolent and does not respond to left sided cues. More arousable today compared to yesterday T 98.8 HR 79 RR 20 BP 109/58 O2 98% Left Hip - Dressing clean, dry and intact Motor: Unable to move upper extremity or lower extremity Sensation: Patient nods when asked if she feels sensation to light touch distally Pulses + DP, Post tib Compartments soft Negative calf tenderness 8.5/27.8 58 yo F s/p Left Hip CRPP POD#2 Continue medical management, will defer to medicine regarding potential neuro evaluation Analgesics DVT Prophylaxis PT WBAT Orthopedically stable for discharge Keep dressing clean, dry and intact, Foam tape and ABD removed. May follow up as outpatient in 2 weeks. Reconsult PRN Thank you for the consultation DO JOEL [facility]
[2019-04-25] MEDS: ESCITALOPRAM OXALATE 10 MG TAB PO SCH (09:00)
[2019-04-25] MEDS: INSULIN GLARGINE 100 UNITS/ML VIAL SQ SCH (09:00)
[2019-04-25] MEDS: CLOPIDOGREL BISULFATE 75 MG TAB PO SCH (09:20)
[2019-04-25] MEDS: ASPIRIN 81 MG CHEW TAB PO SCH (09:20)
[2019-04-25] MEDS: SEVELAMER CARBONATE 800 MG TAB PO SCH ×3 (09:22→17:00)
--- NOTE | 2019-04-25 11:25 | Diagnostic Imaging Report ---
EXAMINATION: CHEST SINGLE (PORTABLE) COMPARISON: Chest x-ray 04/22/2019, chest x-ray 04/05/2019 INDICATION: Cough ^SOB DISCUSSION: Frontal view of the chest obtained at 1110 hours. HEART AND MEDIASTINUM: Stable cardiomegaly and enlarged pulmonary arteries. The thoracic aorta is tortuous LINES: None. LUNGS: The lungs are diffusely hyperinflated suggestive of small airways disease. Subsegmental atelectasis in the left lower lobe is similar. Chronic atelectasis/scar in the right middle lobe is stable. PLEURA: No large effusions. No pneumothorax. BONES AND SOFT TISSUES: Stable. IMPRESSION: 1. Stable hyperinflation. Bilateral subsegmental atelectasis. 2. Stable cardiomegaly and enlarged pulmonary arteries suggestive of pulmonary artery hypertension. No evidence of CHF. Signed by: Dr. Rosie Murguia MD on 04/25/2019 11:22 AM
--- NOTE | 2019-04-25 15:11 | Progress Note ---
DATE: 04/25/2019 Cardiology Progress Note SUBJECTIVE: The patient denies chest pain or shortness of breath. She is coughing. OBJECTIVE: VITAL SIGNS: Temperature 99.6 degrees, pulse 83, respiratory rate 16, blood pressure 137/62, and oxygen saturation 96% on 3 liters nasal cannula. GENERAL: Elderly woman, in no acute distress, sleeping, but does awaken to stimuli. LUNGS: Clear to auscultation bilaterally. No wheezes or crackles. CARDIOVASCULAR: Normal rate. Regular rhythm. No murmur. Normal S1 and S2. ABDOMEN: Soft and nontender. EXTREMITIES: No edema. CARDIAC MEDICATIONS: 1. Plavix 75 mg p.o. daily. 2. Aspirin 81 mg p.o. daily. 3. Atorvastatin 40 mg p.o. at bedtime. 4. Carvedilol 3.125 mg p.o. b.i.d. LABORATORY DATA: WBC 7.01, hemoglobin 8.5, hematocrit 27.8, and platelets 318. Sodium 138, potassium 5.5, chloride 100, CO2 of 24, BUN 47, and creatinine 7.66. IMPRESSION: 1. Left hip fracture. 2. Coronary artery disease, status post left anterior descending artery percutaneous coronary intervention on October 28, 2018. 3. Hypertension. 4. Hyperlipidemia. 5. Diabetes mellitus. 6. End-stage renal disease, on Friday, Friday, Friday hemodialysis. 7. Chronic obstructive pulmonary disease. 8. History of cerebrovascular accident with residual left-sided weakness. 9. Colon cancer, status post partial colectomy. RECOMMENDATIONS: Continue dual antiplatelet therapy as stent is less than 6 months old. Continue current cardiac medications. The patient's blood pressure has improved. Resume carvedilol. Volume management per Nephrology given end-stage renal disease. Thank you for this consult. We will continue to follow. Fartun Kathleen MD ABS/MODL /[id number]
--- NOTE | 2019-04-25 19:01 | NUR ---
WALKING ROUNDS COMPLETE, PT STABLE AT THIS TIME, WALKING ROUNDS COMPLETE.
--- NOTE | 2019-04-25 19:12 | NUR ---
Received bedside report from day nurse. Patient resting in bed, no currently undergoing dialysis. No s/s of distress at this time. All safety measures in place. Dialysis nurse at bedside. Will continue to monitor.
--- NOTE | 2019-04-25 19:50 | NUR ---
Hemodialysis completed. 1.5 L fluid removed per dialysis nurse. Patient vital signs stable, no s/s of distress at this time. All safety measures in place. Will continue to monitor.
[2019-04-25] MEDS: ATORVASTATIN 40 MG TAB PO SCH (19:56)
[2019-04-26] VITALS (8 sets, daily range): BP systolic 118–155; BP diastolic 56–70
[2019-04-26] MEDS: TRELEGY INH SCH (05:46)
[2019-04-26 05:58] LABS: BASOPHILS % 0.4 % (0.0-1.0); EOSINOPHILS % 0.3 % (0.0-6.0); HEMATOCRIT 28.5 % (34.2-44.1); HEMOGLOBIN 8.6 g/dL (12.0-16.0); LYMPHOCYTES # (AUTO) 0.9 (1.0-3.2); MEAN CORPUSCULAR HEMOGLOBIN 31.5 pg (28-32); MEAN CORPUSCULAR HGB CONC 30.2 g/dL (31-35); MEAN CORPUSCULAR VOLUME 104.4 fL (81-99); MONOCYTES # (AUTO) 0.9 (0.2-0.8); MONOCYTES % 13.7 % (4.4-11.3); NEUTROPHILS # (AUTO) 4.9 (2.1-6.9); PLATELET COUNT 374 x10e3/uL (140-360); RED BLOOD COUNT 2.73 x10e6/uL (3.6-5.1); RED CELL DISTRIBUTION WIDTH 15.9 % (11.7-14.4)
[2019-04-26 06:17] LABS: ANION GAP 22.2 mmol/L (8-16); CALCIUM 9.3 mg/dL (8.4-10.2); CREATININE, SERUM 4.08 mg/dL (0.57-1.11); POTASSIUM 4.2 mmol/L (3.5-5.1)
--- NOTE | 2019-04-26 06:55 | NUR ---
Received patient lying in bed with eyes open. Respiration even and unlabored without SOB. Call light in reach.
--- NOTE | 2019-04-26 07:23 | NUR ---
Bedside report given to day nurse. Patient awake and resting in bed, no s/s of distress at this time. All safety measures in place.
[2019-04-26] MEDS: CARVEDILOL 3.125 MG TAB PO SCH ×3 (08:00→16:43)
[2019-04-26] MEDS: INSULIN GLARGINE 100 UNITS/ML VIAL SQ SCH (09:00)
[2019-04-26] MEDS ORDERED: SODIUM CHLORIDE 0.9% 1000ML 2,000 ML ONE (09:50)
[2019-04-26] MEDS: ESCITALOPRAM OXALATE 10 MG TAB PO SCH (10:11)
[2019-04-26] MEDS: SEVELAMER CARBONATE 800 MG TAB PO SCH ×3 (10:11→16:43)
[2019-04-26] MEDS: CELECOXIB 200 MG CAP PO SCH ×2 (10:11→16:43)
[2019-04-26] MEDS: ASPIRIN 81 MG CHEW TAB PO SCH (10:11)
[2019-04-26] MEDS: CLOPIDOGREL BISULFATE 75 MG TAB PO SCH (10:11)
[2019-04-26 10:29] LABS: CLARITY,URINE CLEAR (CLEAR); COLOR,URINE YELLOW (YELLOW); LEUKOCYTE ESTERASE ,URINE NEGATIVE (NEGATIVE); NITRITE,URINE NEGATIVE (NEGATIVE)
[2019-04-26 10:30] LABS: BILIRUBIN,URINE NEGATIVE (NEGATIVE); KETONES,URINE NEGATIVE (NEGATIVE); PROTEIN,URINE DIPSTICK >=300 (NEGATIVE); URINE UROBILINOGEN 0.2 mg/dL (0.2 - 1)
[2019-04-26 10:37] LABS: BACTERIA,URINE RARE /HPF; EPITHELIAL CELLS,URINE FEW /LPF; RBC,URINE 0-5 /HPF (0-5); WBC,URINE (MAN) 0-5 /HPF (0-5)
--- NOTE | 2019-04-26 11:20 | NUR ---
Pt unavailable at this time. Physical therapist at bedside. I will follow up as able. MILDRED THOMAS [employer] [facility] Operator[facility] Care Department O: [phone] Pager: [phone] ([phone] number calling from)
--- NOTE | 2019-04-26 11:50 | Consultation ---
DATE OF CONSULTATION: Neurology Consultation REASON FOR CONSULTATION: I am seeing Ms. Jeffery for delirium and agitated confusion. HISTORY OF PRESENT ILLNESS: The patient is a 58-year-old female who had a fall and has left hip pain, has a left femur subcapital neck fracture and wants to be taken to be taken to the OR. She has a recent history of coronary artery disease and stent placement. I was called to evaluate the patient for agitated delirium and confusion. Overall, the patient does have a known history of diabetes, hypertension, and end-stage renal disease on hemodialysis, as well as history of colon cancer status post colectomy. REVIEW OF SYSTEMS: Other than the fall and the hip pain, [id number] review of systems is negative. PAST MEDICAL HISTORY: Includes coronary artery disease, hypertension, hyperlipidemia, diabetes, history of stroke with minimal left-sided weakness, colon cancer. SOCIAL HISTORY: Still an active smoker. No alcohol or drugs. PHYSICAL EXAMINATION: VITAL SIGNS: Temperature 96.9, heart rate is 72 and regular, blood pressure 147/66. GENERAL: Shows an awake, oriented, calm female who follows commands and answers questions readily. HEENT: Her extraocular muscles are intact. Face is symmetric. Tongue is midline. Speech is clear. There are no hematomas or lacerations on the head. NECK: Supple. CARDIOVASCULAR: Regular rate and rhythm. PULMONARY: Clear to auscultation. ABDOMEN: Soft. NEUROLOGIC: Her extraocular muscles are intact. Pupils are reactive. Speech is clear and eloquent as well as fluent. No dysarthria is noted. EXTREMITIES: Her upper extremities are 5/5 with diminished reflex. Lower extremities, left hip mobility is diminished. Reflexes are diminished throughout. Sensory is grossly intact throughout. ASSESSMENT AND PLAN: I am seeing the patient for agitated delirium, history of stroke but the delirium seems to have largely resolved. History of stroke. The patient should be on antiplatelet agents and continue statins. We will check a lipid panel today. No need for an EEG. CT scan of the brain was done and showed chronic infarcts and lacunar infarct, nothing acute. She will need an MRI at this time. Continue rehabilitation as needed. Would treat underlying metabolic infectious etiologies. MONTY MELCHOR MD RR/MODTaras /[id number]
--- NOTE | 2019-04-26 12:46 | NUR ---
PT SIGNED CHOICE FOR [facility], FILED IN CHART AND WILL FAX CLINICALS.
[2019-04-26] MEDS: HYDROCODONE/APAP 7.5MG-325MG 1 EA TAB PO PRN (13:57)
[2019-04-26] MEDS ORDERED: ONDANSETRON HCL 4 MG ORAL DISINTEGRATING TAB PO PRN (14:00)
--- NOTE | 2019-04-26 17:02 | NUR ---
DR MELCHOR RECOMMENDED MRI OF BRAIN IN HIS CONSULT NOTE CM CALLED DR TSANG TO NOTIFY HIM OF RECOMMENDATION DR TSANG STATES PT "IS BACK TO HER BASELINE AND CAN TRANSFER TO SNF ANY TIME"
--- NOTE | 2019-04-26 19:00 | NUR ---
Report given to table games shift manager. Respiration even and unlabored without SOB. Call light in reach.
--- NOTE | 2019-04-26 19:00 | NUR ---
REPORT RECEIVED FROM DAY RN. PT IS ALERT ANFD ORIENTED X3. RESPIRATIONS ARE EVEN AND UNLABORED. NO IV PRESENT. LEFT AV FISTULA - THRILL AND BRUIT PRESENT. LEFT HIP DRESSING DRY AND INTACT- AQUACEL. PT DENIES PAIN. BED LOCKED AND IN LOW POSITION. CALL LIGHT WITHIN REACH. BED ALARM ON.
[2019-04-26] MEDS: ATORVASTATIN 40 MG TAB PO SCH (20:26)
[2019-04-27 00:11] VITALS: BP 110/56
[2019-04-27 04:30] VITALS: BP 126/59
[2019-04-27] MEDS: TRELEGY INH SCH (06:00)
[2019-04-27 07:44] VITALS: BP 126/59
[2019-04-27 07:52] VITALS: BP 127/64
[2019-04-27] MEDS: CARVEDILOL 3.125 MG TAB PO SCH ×2 (08:28→17:02)
[2019-04-27] MEDS: ASPIRIN 81 MG CHEW TAB PO SCH (08:28)
[2019-04-27] MEDS: CELECOXIB 200 MG CAP PO SCH ×2 (08:28→17:02)
[2019-04-27] MEDS: CLOPIDOGREL BISULFATE 75 MG TAB PO SCH (08:28)
[2019-04-27] MEDS: ESCITALOPRAM OXALATE 10 MG TAB PO SCH (08:28)
[2019-04-27] MEDS: SEVELAMER CARBONATE 800 MG TAB PO SCH ×3 (08:28→17:02)
[2019-04-27] MEDS: INSULIN GLARGINE 100 UNITS/ML VIAL SQ SCH (08:34)
--- NOTE | 2019-04-27 10:17 | NUR ---
RETIREMENT FACILITY DISCHARGE INFORMATION PATIENT HAS BEEN ACCEPTED TO: NAME: JAYMIE RASHID ADDRESS:[id number] ACCEPTING FOREIGN LANGUAGE TEACHER: JUWAN PLEITEZ MD: TRINH ROOM: 208 NURSE CALL REPORT TO: [phone] IMM SIGNED AND OBTAINED (if applicable): IMM THE FOLLOWING DOCUMENTS MUST ACCOMPANY PATIENT FOR TRANSFER: COPIED CHART: PACKET
[2019-04-27] MEDS: HYDROCODONE/APAP 7.5MG-325MG 1 EA TAB PO PRN ×2 (11:31→17:02)
[2019-04-27 12:19] VITALS: BP 116/58
--- NOTE | 2019-04-27 12:45 | NUR ---
ASSESSMENT: No concerns expressed Pt receiving dialysis. Provided hospitality and information about availability of manager market development. No need to follow at this time. MILDRED THOMAS Mobile Home Set Up Person Spiritual Care Department O: [phone] Pager: [phone] ([phone] number calling from)
--- NOTE | 2019-04-27 15:35 | NUR ---
REASON FOR CONSULTATION: I am seeing Ms. Jeffery for delirium and agitated confusion. doing better overnight no agitation no focal dysfunction PHYSICAL EXAMINATION: VITAL SIGNS: Temperature 97.6, heart rate is 78 and regular, blood pressure 126/59 GENERAL: Shows an awake, oriented, calm female who follows commands and answers questions readily. HEENT: Her extraocular muscles are intact. Face is symmetric. Tongue is midline. Speech is clear. There are no hematomas or lacerations on the head. NECK: Supple. CARDIOVASCULAR: Regular rate and rhythm. PULMONARY: Clear to auscultation. ABDOMEN: Soft. NEUROLOGIC: Her extraocular muscles are intact. Pupils are reactive. Speech is clear and eloquent as well as fluent. No dysarthria is noted. EXTREMITIES: Her upper extremities are 5/5 with diminished reflex. Lower extremities, left hip mobility is diminished. Reflexes are diminished throughout. Sensory is grossly intact throughout. ASSESSMENT AND PLAN: I am seeing the patient for agitated delirium, history of stroke but the delirium seems to have largely resolved. History of stroke. The patient should be on antiplatelet agents and continue statins.
[2019-04-27 16:37] VITALS: BP 113/58
--- NOTE | 2019-04-27 17:25 | NUR ---
dry dressing applied to right hip per Dr. Arevalo.
--- NOTE | 2019-04-27 18:04 | NUR ---
ORTHOPEDIC PROGRESS NOTE Patient seen & examined. Much more alert and interactive. Pain controlled. T 97.9 HR 77 RR 20 BP 113/58 O2 97% Left Hip - Dressing clean, dry and intact Motor: + EHL, FHL, TA, G/S Sensation: Sensation intact to light touch Pulses + DP, Post tib Compartments soft Negative calf tenderness 04/25/20 H/H 8.6/28.5 58 yo F s/p Left Hip CRPP POD#4 Continue medical management, will defer to medicine regarding potential neuro evaluation Analgesics DVT Prophylaxis PT WBAT Orthopedically stable for discharge Keep dressing clean, dry and intact, Foam tape and ABD removed. May follow up as outpatient in 2 weeks. Reconsult PRN Thank you for the consultation DO JOEL [facility]
== END 2019-04-27 17:40 | DRG 480 ==
LOC: ER 08:56 → ERHOLD 10:01 → MED/SURG2 11:28 → MED/SURG 04-23 09:53
PROC: 5A1D70Z Performance of Urinary Filtration, Intermittent, Less than 6 Hours Per Day (ICD-10-PCS; 2019-04-22)
PROC: 0QS936Z Reposition Left Femoral Shaft with Intramedullary Internal Fixation Device, Percutaneous Approach (ICD-10-PCS; principal; 2019-04-23 06:30)
DX: S72.012A Unspecified intracapsular fracture of left femur, initial encounter for closed fracture (principal); N18.6 End stage renal disease; I69.351 Hemiplegia and hemiparesis following cerebral infarction affecting right dominant side; I13.2 Hypertensive heart and chronic kidney disease with heart failure and with stage 5 chronic kidney disease, or end stage renal disease; I25.10 Atherosclerotic heart disease of native coronary artery without angina pectoris; E11.22 Type 2 diabetes mellitus with diabetic chronic kidney disease; Z99.2 Dependence on renal dialysis; Z79.4 Long term (current) use of insulin; W19.XXXA Unspecified fall, initial encounter; Z87.891 Personal history of nicotine dependence; J44.9 Chronic obstructive pulmonary disease, unspecified; D63.1 Anemia in chronic kidney disease; Z95.5 Presence of coronary angioplasty implant and graft; Z85.038 Personal history of other malignant neoplasm of large intestine; Z90.49 Acquired absence of other specified parts of digestive tract; R41.0 Disorientation, unspecified; E78.5 Hyperlipidemia, unspecified; M19.90 Unspecified osteoarthritis, unspecified site; I50.9 Heart failure, unspecified
CPT/HCPCS: 36415; 70450; 71045; 76000; 80048; 80053; 81001; 82948; 83605; 84100; 84132; 85025; 85610; 85730; 86704; 86706; 86850; 86900; 87040; 87086; 87340; 90962; 93005; 93306; 94640; 97139; 99284; C1713; J0360; J0690; J1170; J1815; J1940; J2001; J2250; J2270; J2370; J2405; J3010; J7030; Q0162

== ENCOUNTER 2019-05-10 04:43 | Inpatient (IN) | payer MEDICARE ==
[~2019-05-10] VITALS: Ht 165.1 cm; Wt 63.1 kg
[2019-05-10] MEDS ORDERED: SODIUM CHLORIDE 0.9% 1000ML 1,000 ML IV STA (04:46)
[2019-05-10] MEDS ORDERED: PANTOPRAZOLE 40 MG 10ML VIAL IV STA (04:46)
[2019-05-10 05:13] LABS: BASOPHILS % 0.2 % (0.0-1.0); EOSINOPHILS % 0.3 % (0.0-6.0); HEMATOCRIT 34.8 % (34.2-44.1); LYMPHOCYTES # (AUTO) 0.5 (1.0-3.2); LYMPHOCYTES % 5.7 % (18.0-39.1); MEAN CORPUSCULAR HEMOGLOBIN 32.4 pg (28-32); MEAN CORPUSCULAR HGB CONC 31.6 g/dL (31-35); MEAN CORPUSCULAR VOLUME 102.4 fL (81-99); MONOCYTES # (AUTO) 0.4 (0.2-0.8); NEUTROPHILS # (AUTO) 7.6 (2.1-6.9); NEUTROPHILS % 88.7 % (38.7-80.0); PLATELET COUNT 498 x10e3/uL (140-360); RED CELL DISTRIBUTION WIDTH 17.2 % (11.7-14.4)
[2019-05-10] MEDS ORDERED: BENZOCAINE 20% SPR 60 ML CAN MT ONE (05:15)
[2019-05-10] MEDS ORDERED: ONDANSETRON HCL INJ 2MG/ML 2ML 2 MG/ML VIAL IV STA (05:28)
[2019-05-10] MEDS ORDERED: ONDANSETRON HCL INJ 2MG/ML 2ML 2 MG/ML VIAL ONE (05:33)
[2019-05-10 05:43] LABS: B-TYPE NATRIURETIC PEPTIDE2 2115.2 pg/mL (0-100)
[2019-05-10 05:45] LABS: ALANINE AMINOTRANSFERASE < 6 IU/L (0-55); ALBUMIN 3.2 g/dL (3.5-5.0); ALBUMIN/GLOBULIN RATIO 0.9 (0.8-2.0); ALKALINE PHOSPHATASE 121 IU/L (40-150); ANION GAP 21.1 mmol/L (8-16); BLOOD UREA NITROGEN 29 mg/dL (7-26); BUN/CREATININE RATIO 4 (6-25); CALCIUM 10.1 mg/dL (8.4-10.2); CARBON DIOXIDE 32 mmol/L (22-29); CHLORIDE 88 mmol/L (98-107); CREATINE KINASE 13 IU/L (29-168); CREATININE, SERUM 6.94 mg/dL (0.57-1.11); EST GLOMERULAR FILTRATION RATE 6 ML/MIN (60-); GLUCOSE 189 mg/dL (74-118); POTASSIUM 4.1 mmol/L (3.5-5.1); SODIUM 137 mmol/L (136-145)
[2019-05-10] MEDS ORDERED: PIPER-TAZ 3.375 GM 50 ML IV SCH (06:00)
[2019-05-10] MEDS ORDERED: BENZOCAINE 20% SPR 60 ML CAN ONE (06:16)
--- NOTE | 2019-05-10 07:27 | Diagnostic Imaging Report ---
EXAM: CT Abdomen and Pelvis WITHOUT contrast INDICATION: vomiting, nausea, COMPARISON: Abdominal CT report from 11/27/2016 TECHNIQUE: Abdomen and pelvis were scanned utilizing a multidetector helical scanner from the lung base to the pubic symphysis without administration of IV contrast. Absence of intravenous contrast decreases sensitivity for detection of focal lesions and vascular pathology. Coronal and sagittal reformations were obtained. Routine protocol was performed. IV CONTRAST: None ORAL CONTRAST: None COMPLICATIONS: None RADIATION DOSE: Total DLP: 233 mGy*cm Estimated effective dose: (DLP x 0.015 x size factor) mSv CTDIvol has been reviewed. It is below the limits set by the Radiation Protocol Committee (RPC). Dose modulation, iterative reconstruction, and/or weight based adjustment of the mA/kV was utilized to reduce the radiation dose to as low as reasonably achievable. FINDINGS: LINES and TUBES: None. LOWER THORAX: Dense mitral annular calcifications. Mild cardiomegaly. Groundglass opacities in the lower lungs, more so on the right. Linear coarse bibasilar opacities. Mild bibasilar atelectasis. Some of the groundglass opacities demonstrate tree-in-bud nodular pattern. HEPATOBILIARY: No focal hepatic lesions. No biliary ductal dilation. GALLBLADDER: No radio-opaque stones or sludge. No wall thickening. SPLEEN: No splenomegaly. PANCREAS: No focal masses or ductal dilatation. ADRENALS: Stable 5.6 cm fluid dense left adrenal cysts, described on abdominal CT report from 11/27/2016. No right adrenal nodules KIDNEYS/URETERS: No hydronephrosis. No cystic or solid mass lesions. No stones. GI TRACT: Numerous dilated and fluid-filled loops of small bowel. A dilated loop of small bowel in the right lower quadrant at the site of at least one transition point has mesenteric edema and surrounding free fluid. Probable wall thickening of dilated small bowel loops in the right lower quadrant. Surgical changes of right hemicolectomy. Circumferential rectal wall thickening. PELVIC ORGANS/BLADDER: Unremarkable. LYMPH NODES: No lymphadenopathy. VESSELS: Scattered mild arterial vascular calcifications. PERITONEUM / RETROPERITONEUM: Focal mesenteric edema between dilated small bowel loops in the right lower quadrant. Small volume ascites. No free air. BONES: Stable proximal left femoral fixation hardware. Degenerative changes in the spine. SOFT TISSUES: Unremarkable. IMPRESSION: 1. High-grade small bowel obstruction with transition point in the right lower quadrant. Some findings are suspicious for closed loop obstruction and ischemia although evaluation is difficult in the absence of IV contrast. Recommend abdominal CT with IV contrast and correlation with serum lactic. Small volume ascites. 2. Groundglass opacities in the lung bases, more so in the right lower lobe, could be due to concerning for pneumonia, possibly viral or aspiration. 3. Rectal wall thickening, correlate for proctitis. Consider proctoscopy. 4. Stable 5.6 cm fluid dense left adrenal cysts, described on abdominal CT report from 11/27/2016. IV contrast is necessary to further characterize. 5. Dense mitral annular calcific valvular disease with mild cardio megaly Findings 1 and [address] discussed [address] ER provider Dr[address] Block at 7:10 AM on 05/10/[address] Cherry via telephone. Signed by: Dakotah Cherry DO on 05/10/2019 7:23 AM
--- NOTE | 2019-05-10 07:29 | Diagnostic Imaging Report ---
EXAMINATION: CHEST 2 VIEWS INDICATION: Nausea COMPARISON: Same day abdominal CT, chest x-ray 04/25/2019 FINDINGS: TUBES and LINES: None. LUNGS: Normal lung volumes. Hazy opacities in the lung bases. PLEURA: No pleural effusion or pneumothorax. HEART AND MEDIASTINUM: Mild cardiomegaly. Left Coronary stent. BONES AND SOFT TISSUES: No acute osseous lesion. Soft tissues are unremarkable. UPPER ABDOMEN: Multiple dilated air and fluid-filled loops of small bowel IMPRESSION: Mild cardiomegaly. Hazy opacities in the lung bases concerning for pneumonia. Findings a small bowel obstruction. Signed by: Dakotah Cherry DO on 05/10/2019 7:25 AM
--- NOTE | 2019-05-10 08:44 | Consultation ---
DATE OF CONSULTATION: 05/10/2019 CHIEF COMPLAINT: Abdominal pain. HISTORY OF PRESENT ILLNESS: The patient is a 58-year-old female with 2-day history of abdominal pain in the periumbilical region with vomiting. No bowel movement or passing gas. No fever or diarrhea. PAST MEDICAL HISTORY: Significant for colon cancer, status post partial colectomy 2 years ago; history of a heart failure; CVA; renal insufficiency, on dialysis; hypertension; COPD; diabetes. ALLERGIES: NO DRUGS ALLERGY. PAST SURGICAL HISTORY: AV fistula creation and partial colectomy. SOCIAL HABITS: She smokes, but denies alcohol abuse. REVIEW OF SYSTEMS: No chest pain. Mild shortness of breath. PHYSICAL EXAMINATION: VITAL SIGNS: Stable, afebrile. GENERAL: She is awake, alert, in moderate discomfort. HEENT: Sclerae anicteric. NECK: Supple. LUNGS: Clear. HEART: Regular rate and rhythm. ABDOMEN: [id number] distended with some guarding, but no focal tenderness or rebound. EXTREMITIES: No cyanosis or edema. LABORATORY DATA: White cell count is 8. CT scan show intestinal obstruction. ASSESSMENT: Abdominal pain and vomiting with evidence of bowel obstruction on CT scan. PLAN: NG tube placement. We will follow serial abdominal exam and x-ray. Due to persistent obstruction, we will proceed to laparoscopic, possible open surgery. Klever Saul MD DNL/MODL /[id number]
[2019-05-10] MEDS ORDERED: SODIUM CHLORIDE 0.9% 50ML 50 ML ONE (08:48)
[2019-05-10] MEDS ORDERED: IOPAMIDOL 370 MG/ML 200 ML INFUS..BTL INJ ONE (08:49)
--- NOTE | 2019-05-10 11:19 | Diagnostic Imaging Report ---
EXAM: CT Chest, Abdomen and Pelvis WITH intravenous contrast INDICATION: Bowel obstruction, pneumonia COMPARISON: CT abdomen and pelvis of 05/10/2019, chest radiograph of 05/10/2019 TECHNIQUE: The chest, abdomen and pelvis were scanned utilizing a multidetector helical scanner from the thoracic inlet to the pubic symphysis following administration of IV contrast. Coronal and sagittal reformations were obtained. Scan was performed during portal venous phase. IV CONTRAST: 100cc Isovue 370 ORAL CONTRAST: Water COMPLICATIONS: None RADIATION DOSE: Total DLP: 840 mGy*cm Dose modulation, iterative reconstruction, and/or weight based adjustment of the mA/kV was utilized to reduce the radiation dose to as low as reasonably achievable. FINDINGS: LINES/ TUBES: NG tube terminates in the stomach. LUNGS AND AIRWAYS: The central airways are patent. Bibasilar dependent subsegmental atelectasis. Scattered groundglass and tree-in-bud opacities involve the dependent portions of the right lower lobe and right middle lobe. PLEURA: The pleural spaces are clear. HEART AND MEDIASTINUM: The thyroid gland is normal. No mediastinal, hilar or axillary lymphadenopathy. Multichamber cardiomegaly. Atherosclerotic calcifications involve the coronary arteries, aorta, and proximal great vessels.. There is no pericardial effusion. No central pulmonary embolism. HEPATOBILIARY: There is a 4.9 cm mass in segment 6 of the liver (series 2 image 73). No biliary ductal dilation. Unremarkable gallbladder. SPLEEN: No splenomegaly. PANCREAS: No focal masses or ductal dilatation. ADRENALS: 5.0 cm left adrenal mass contains both cystic and solid components. KIDNEYS/URETERS: No hydronephrosis or renal calculi. Unchanged bilateral renal cysts. PELVIC ORGANS/BLADDER: Unremarkable. PERITONEUM / RETROPERITONEUM: Small volume ascites in the pelvis, new compared to the prior CT of 05/10/2019 LYMPH NODES: No lymphadenopathy. VESSELS: Atherosclerotic calcifications of the nonaneurysmal abdominal aorta and major branches. GI TRACT: Essentially unchanged appearance of numerous dilated loops of small bowel with air-fluid levels consistent with small bowel obstruction. Transition point appears to be in the right lower quadrant (series 2 image 96. Possible additional transition point at the right hemicolectomy anastomosis. Unchanged circumferential rectal wall thickening. BONES AND SOFT TISSUES: No acute osseous injury. IMPRESSION: Unchanged appearance of high-grade small bowel obstruction with at least one transition point in the right lower quadrant. New small volume ascites in the pelvis. No free air. Groundglass and tree-in-bud opacities at the dependent portions of the right lower lobe and right middle lobe are compatible with aspiration and/or pneumonia in the proper clinical setting. 4.9 cm segment 6 right hepatic mass is indeterminate on this single phase contrast enhanced CT. Recommend liver MRI with and without contrast for further evaluation. 5.0 cm left adrenal mass contains both cystic and solid components. Adrenal mass protocol CT or MRI recommended for further evaluation. Unchanged circumferential rectal wall thickening can be seen with proctitis. The above findings were discussed with Dr. Kelley on 05/10/2019 11:15 AM, who responded indicating that the communication was understood. Signed by: Dimple Apple MD on 05/10/2019 11:15 AM
[2019-05-10 11:20] VITALS: BP 218/95
--- NOTE | 2019-05-10 11:20 | NUR ---
ARRIVED TO UNIT AT APPROXIMATELY 1110. AAOX3. ACYANOTIC. RESTING IN BED WATCHING TELEVISION. NG TUBE NOTED TO LEFT NARE CURRENTLY SET TO LOW INTERMITTENT SUCTION. NO DISTRESS NOTED. RIGHT AC IV PATENT AND SALINE LOCKED.
--- NOTE | 2019-05-10 12:45 | NUR ---
LEFT MESSAGE ON Dolores LUCIO ANSWERING SERVICE TO RETURN CALL FOR DIALYSIS ORDERS AT APPROXIMATELY 1240
[2019-05-10 12:46] VITALS: BP 218/95
--- NOTE | 2019-05-10 13:01 | NUR ---
DR. GARCÍAJ RETURNED PHONE CALL AND WAS INFORMED OF PATIENT'S ARRIVAL TO UNIT AT 1110 TODAY. PHYSICIAN ALSO AWARE THAT HER DIALYSIS DAYS ARE -. DR. GARCÍA STATES, "OK. CALL D[facility]LS[facility]. THEY CAN CALL ME FOR ORDERS."
--- NOTE | 2019-05-10 13:33 | NUR ---
CALLED MELANIE AT APPROXIMATELY 1325 TO INFORM THEM OF PATIENTS REGULAR SCHEDULE OF DIALYSIS MWF
[2019-05-10] MEDS ORDERED: SODIUM CHLORIDE 0.9% 250ML 250 ML ONE (13:49)
[2019-05-10] MEDS: PIPER-TAZ 3.375 GM 50 ML IV SCH ×2 (13:52→20:00)
--- NOTE | 2019-05-10 14:00 | Consultation ---
DATE OF CONSULTATION: REASON FOR CONSULTATION: Small bowel obstruction. HISTORY OF PRESENT ILLNESS: This patient is a very pleasant 58-year-old female, comes in with abdominal pain for 2 days, nausea, and vomiting. She has an NG tube now and there is bile type of material. The patient has history of colon cancer status post partial colectomy two years ago, history of heart failure, renal insufficiency on dialysis, hypertension, COPD, and diabetes, comes in with the above complaint, abdominal pain, nausea, and vomiting. NG tube is in. The patient was seen by Surgery. I was asked to see her. When she first came, her white count was 5.8 and hemoglobin 11. Her sodium 137, potassium 4.1, and creatinine 6.94. The patient is currently on Zosyn. REVIEW OF SYSTEMS: Nausea, vomiting, some abdominal discomfort, but she says since came here she is feeling better. PAST MEDICAL HISTORY: As above. PAST SURGICAL HISTORY: As above. ALLERGIES: NKA. SOCIAL HISTORY: There is no smoking, drug abuse, or alcohol abuse. PHYSICAL EXAMINATION: GENERAL: She is currently alert, oriented, does not seem to be in acute distress. VITAL SIGNS: Stable, afebrile. HEENT: She is not icteric. NECK: Supple. CHEST: Clear. HEART: No murmurs. ABDOMEN: Soft. Bowel sounds present. No tenderness. EXTREMITIES: No edema. SKIN: No rash. IMAGING: CT scan of the chest showed high-grade small bowel obstruction. There is a ground and tree-in-bud opacification in dependent portion of the right lower lobe, compatible aspiration. IMPRESSION: 1. Small bowel obstruction. 2. Aspiration pneumonia. Agree with Zosyn. Agree with the NG tube. 3. History of colon cancer. 4. History of end-stage renal disease, on hemodialysis. 5. We will follow with you. MD JOHANNE Camilo/EVER /[id number]
[2019-05-10] MEDS ORDERED: CLONIDINE HCL 0.1 MG/24 HR 1 EA PATCH TOP SCH (14:45)
--- NOTE | 2019-05-10 15:15 | Consultation ---
DATE OF CONSULTATION: Pulmonary Critical Care Consultation CHIEF COMPLAINT: Abdominal pain, distention, vomiting, and abnormal infiltrate on chest x-ray. HISTORY OF PRESENT ILLNESS: The patient is a 58-year-old woman. She has a history of colon cancer that required surgery three years ago. She also has a history of end-stage renal disease. She came to the hospital after 4 to 5 days of abdominal distention, abdominal pain, and vomiting. Upon evaluation in the ER, she was found to have small-bowel obstruction, required an NG tube which has provided some relief. The patient also had an abnormal infiltrate on her CT scan in the lung. She denies any cough or fevers. She does report a history of pneumonia as well as a history of COPD. She uses inhalers at home, but does not have oxygen. PAST SURGICAL HISTORY: 1. Status post colon cancer resection. 2. A prior PTCA of the left anterior descending artery. 3. Prior hip fracture. 4. Placement of AV fistula for dialysis. PAST MEDICAL HISTORY: 1. End-stage renal disease. 2. Diabetes. 3. Chronic obstructive pulmonary disease. 4. History of a prior stroke. 5. Coronary artery disease. ALLERGIES: THERE ARE NO KNOWN DRUG ALLERGIES. SOCIAL HISTORY: The patient recently quit smoking. She is not a drinker. FAMILY HISTORY: Family history is noncontributory. REVIEW OF SYSTEMS: There is no fever. She has no headache. She is not complaining of neck pain or cough. She has no chest pain. She is not complaining of dyspnea. She has no phlegm production. She is not having any chest pain. She has no nausea or vomiting. She has no abdominal pain now, although she did have abdominal pain on presentation. She also had abdominal distention as well as vomiting. She has no leg edema. PHYSICAL EXAMINATION: VITAL SIGNS: The patient is afebrile. She is now hypertension with 200/95 with a pulse of 102. HEENT: Shows no facial swelling or erythema. LYMPHATIC: Shows no submandibular, cervical, or supraclavicular adenopathy. CARDIAC: Reveals regular rate and rhythm with normal S1, S2. LUNGS: Auscultation of lungs reveals decreased breath sounds at the bases. ABDOMEN: Soft. It is not very distended any longer. EXTREMITIES: There is no leg edema or calf tenderness. There is no cyanosis clubbing. SKIN: Shows no rashes. NEUROLOGIC: Shows no focal abnormalities. LABORATORY DATA: White blood cell count is 8.6 and the hemoglobin is 11. The platelet count is 498. The BUN to creatinine ratio is 29 to 6.9 and the other electrolytes are within normal limits. The sodium is 137 and the glucose is 146. IMPRESSION: 1. Partial small bowel obstruction requiring NG tube. 2. Faint areas of dependent atelectasis, inflammation in the right lower lobe. 3. Possible hepatic mass. 4. End-stage renal disease. 5. Diabetes. PLAN: 1. Continue current antibiotics for small bowel obstruction. 2. Continue NG tube. The patient is being followed by General Surgery. 3. The clinical picture is not consistent with pneumonia or any pulmonary infection at this time. 4. Continue to monitor blood pressure. 5. Dialysis as needed. Danilo Najera MD [facility]/MODL /[id number]
--- NOTE | 2019-05-10 15:50 | Consultation ---
DATE OF CONSULTATION: 05/10/2019 Renal Consultation REASON FOR CONSULTATION: End-stage renal disease. HISTORY OF PRESENT ILLNESS: A 58-year-old female with end-stage renal disease, on hemodialysis Friday, Friday, and Friday, presented to [facility] with abdominal pain, nausea, and vomiting. The patient had a CT scan, which was concerning for bowel obstruction. Surgery was consulted. NG tube was placed and Nephrology was consulted for hemodialysis. The patient states her last hemodialysis was on 05/07/2019. REVIEW OF SYSTEMS: Twelve-point review of systems completed. All systems negative other than in the HPI above. PAST MEDICAL HISTORY: 1. End-stage renal disease, on hemodialysis Friday, Friday, and Friday. 2. Diabetes type 2. 3. Hypertension. 4. COPD. 5. History of stroke. 6. Coronary artery disease. PAST SURGICAL HISTORY: 1. History of colon cancer resection. 2. Hip fracture. 3. Left upper extremity AV fistula. 4. PTCA of LAD in the past. SOCIAL HISTORY: Quit tobacco. No alcohol. No IV drugs. FAMILY HISTORY: No family history of kidney disease. ALLERGIES: NO KNOWN DRUG ALLERGIES. CURRENT MEDICATIONS: See list. PHYSICAL EXAMINATION: VITAL SIGNS: Blood pressure 215/95, pulse 102, temperature 97.2, and respiratory rate 20. GENERAL: No apparent distress. HEENT: NG tube in place. No scleral icterus. No periorbital edema. NECK: Supple. Elevated jugular venous pressure. CHEST: Clear to auscultation anteriorly bilaterally. CARDIOVASCULAR: Regular rhythm. No murmurs or rubs. ABDOMEN: Soft. Hypoactive bowel sounds. EXTREMITIES: 1+ edema. No clubbing. No cyanosis. SKIN: Warm. LABORATORY DATA: Sodium 137, potassium 4.1, chloride 88, CO2 of 32, BUN 29, creatinine 6.94, calcium 10.1, and BNP 2115. White count 8.58, hemoglobin 11, hematocrit 34.8, and platelets 498. Chest CT, high-grade small bowel obstruction with at least one transition point in the right lower quadrant, ground-glass and tree-in-bud opacities in the dependent portions of the right lower lobe and right middle lobe compatible with aspiration or pneumonia, 4.9 cm segment right hepatic mass, 5.0 cm left adrenal mass. ASSESSMENT AND PLAN: 1. End-stage renal disease. We will continue hemodialysis on Friday, Friday, and Friday. The patient will be scheduled for hemodialysis today. 2. Anemia secondary to chronic kidney disease. We will start Epogen if hemoglobin drops below 10. 3. Electrolytes acceptable. 4. Small bowel obstruction. Nasogastric tube placed. Surgery following. May need laparoscopic surgery. 5. Hypertension. Follow after dialysis. We will order IV medication. 6. A 4.9 cm hepatic mass and 5.0 cm left adrenal mass. We will need MRI for further evaluation. MD BLAS Morgan/EVER /[id number]
[2019-05-10 17:30] VITALS: BP 189/84
[2019-05-10] MEDS ORDERED: SODIUM CHLORIDE 0.9% 1000ML 2,000 ML ONE (18:39)
--- NOTE | 2019-05-10 19:29 | NUR ---
REPORT GIVEN TO ONCOMING NURSE. PT AWAKE AND ALERT. ACYANOTIC. NO DISTRESS NOTED.
--- NOTE | 2019-05-10 20:19 | NUR ---
RECEIVED PT IN BED AOX3 PT HAS NG TUBE AT LOW SUCTION .PT IS NPO RT AC 20 G S/L CALL LIGHT WITH IN REACH .CONTINUE TO MONITOR
[2019-05-10 20:42] VITALS: BP 189/84
[2019-05-10 21:55] VITALS: BP 176/85
[2019-05-10] MEDS: ONDANSETRON HCL INJ 2MG/ML 2ML 2 MG/ML VIAL IV PRN (23:53)
[2019-05-10] MEDS: MORPHINE SULFATE INJ 4 MG/ML INJ 1ML IV PRN (23:53)
[2019-05-11] VITALS (8 sets, daily range): BP systolic 103–180; BP diastolic 55–89
[2019-05-11] MEDS: PIPER-TAZ 3.375 GM 50 ML IV SCH ×4 (02:00→21:47)
[2019-05-11 05:59] LABS: BASOPHILS % 0.2 % (0.0-1.0); EOSINOPHILS % 0.3 % (0.0-6.0); HEMATOCRIT 30.2 % (34.2-44.1); LYMPHOCYTES # (AUTO) 1.1 (1.0-3.2); LYMPHOCYTES % 17.1 % (18.0-39.1); MEAN CORPUSCULAR HEMOGLOBIN 31.8 pg (28-32); MEAN CORPUSCULAR HGB CONC 29.8 g/dL (31-35); MEAN CORPUSCULAR VOLUME 106.7 fL (81-99); MONOCYTES # (AUTO) 0.9 (0.2-0.8); MONOCYTES % 14.5 % (4.4-11.3); NEUTROPHILS # (AUTO) 4.1 (2.1-6.9); NEUTROPHILS % 67.4 % (38.7-80.0); PLATELET COUNT 427 x10e3/uL (140-360); RED BLOOD COUNT 2.83 x10e6/uL (3.6-5.1); RED CELL DISTRIBUTION WIDTH 18.2 % (11.7-14.4)
[2019-05-11 06:11] LABS: INR 1.09; PROTHROMBIN TIME 14.8 seconds (11.9-14.5)
[2019-05-11 06:18] LABS: ALBUMIN 2.7 g/dL (3.5-5.0); ALKALINE PHOSPHATASE 88 IU/L (40-150); ANION GAP 16.1 mmol/L (8-16); BLOOD UREA NITROGEN 25 mg/dL (7-26); BUN/CREATININE RATIO 4 (6-25); CALCIUM 8.8 mg/dL (8.4-10.2); CARBON DIOXIDE 31 mmol/L (22-29); CHLORIDE 97 mmol/L (98-107); CREATININE, SERUM 5.82 mg/dL (0.57-1.11); EST GLOMERULAR FILTRATION RATE 7 ML/MIN (60-); GLUCOSE 91 mg/dL (74-118); POTASSIUM 4.1 mmol/L (3.5-5.1); SODIUM 140 mmol/L (136-145)
[2019-05-11 06:21] LABS: ALANINE AMINOTRANSFERASE < 6 IU/L (0-55)
[2019-05-11] MEDS: ONDANSETRON HCL INJ 2MG/ML 2ML 2 MG/ML VIAL IV PRN ×2 (06:29→23:30)
[2019-05-11] MEDS: MORPHINE SULFATE INJ 4 MG/ML INJ 1ML IV PRN ×2 (06:29→23:30)
--- NOTE | 2019-05-11 06:47 | Diagnostic Imaging Report ---
Abdomen/KUB INDICATION: ^sbo ^[id number] ^0610 COMPARISON: CT chest, abdomen, pelvis 05/10/2019. FINDINGS: Portable, supine image obtained at 0617 hours. Medical Devices: Cancellous screws in the proximal left femur are stable. Enteric tube is looped in the inferior left chest and does not extend past the diaphragm. Bowel: Multiple dilated small bowel loops measure up to 4.9 cm. There is no air in the large bowel. There is formed stool in the right colon adjacent to sutures. Free air: None Abdominal calcifications: None Organomegaly: Normal. Excreted contrast in the urinary bladder. Bones: Stable IMPRESSION: Multiple dilated small bowel loops consistent with obstruction. Enteric tube is looped in the distal chest. Recommend removal and reinsertion. Signed by: Dr. Rosie Murguia MD on 05/11/2019 6:43 AM
[2019-05-11 07:02] LABS: FERRITIN 1339.22 ng/mL (4.63-204.00)
--- NOTE | 2019-05-11 07:18 | NUR ---
PT RESTING AND BEDSIDE REPORT GIVEN TO THE ONCOMING NURS
[2019-05-11] MEDS ORDERED: SODIUM CHLORIDE 0.9% 1000ML 2,000 ML ONE (08:54)
[2019-05-11] MEDS ORDERED: LORAZEPAM INJ 2 MG/ML VIAL IV ONE (09:40)
--- NOTE | 2019-05-11 12:59 | Progress Note ---
DATE: SUBJECTIVE: The patient is receiving dialysis now. She feels fatigued. She has no fevers. PHYSICAL EXAMINATION: VITAL SIGNS: The patient is afebrile. The blood pressure is 103/55. Saturation is 98%. HEENT: Shows no facial swelling or erythema. CARDIAC: Reveals regular rate and rhythm with normal S1 and S2. There are no murmurs or rubs heard. LUNGS: Auscultation of lungs shows clear breath sounds bilaterally. There is no wheezing. ABDOMEN: Soft, nontender. There is no rebound or guarding. LABORATORY DATA: White blood cell count is 6.14 and hemoglobin is 9. The platelet count is 427. BUN to creatinine ratio is elevated at 25 to 5.82 and the other electrolytes are within normal limits. IMPRESSION: 1. Small bowel obstruction. 2. End-stage renal disease. 3. Diabetes mellitus. 4. Possible community-acquired pneumonia. 5. Possible hepatic mass. PLAN: 1. Continue dialysis. 2. Continue current antibiotics. 3. Continue NG decompression. Danilo Najera MD [facility]/MODL /[id number]
[2019-05-11 13:22] LABS: ANION GAP 13.8 mmol/L (8-16); CALCIUM 8.8 mg/dL (8.4-10.2); CREATININE, SERUM 2.73 mg/dL (0.57-1.11); POTASSIUM 3.8 mmol/L (3.5-5.1)
[2019-05-11] MEDS ORDERED: BUPIVACAINE 0.25% 30ML SDV INJ ONE (13:50)
--- NOTE | 2019-05-11 14:12 | NUR ---
PATIENT TRANSFERRED FROM UNIT VIA BED BY OR STAFF FOR SCHEDULED PROCEDURE AT APPROXIMATELY 1335. PATIENT AWAKE AND ALERT. ACYANOTIC. RESTING IN BED. NO DISTRESS NOTED.
--- NOTE | 2019-05-11 16:14 | NUR ---
PATIENT PREPARING FOR TRANSFER FROM PACU TO ROOM 114 ON MED SURG UNIT.
--- NOTE | 2019-05-11 16:30 | NUR ---
REPORT GIVEN TO CHARANJIT SERRANO AT APPROXIMATELY 1620.
--- NOTE | 2019-05-11 16:47 | NUR ---
RECEIVED PATIENT FROM PACU. PATIENT A/O X2-3 STILL SLIGHTLY DROWSY FROM ANESTHESIA. UNLABORED RESPIRATIONS, LUNG SOUNDS CLEAR. 5 TROCAR SITES TO ABDOMEN CLEAN ,DRY, AND INTACT. QUINTANA IN PLACE WITH CLEAR YELLOW URINE. NGT TO LEFT NARE LIWS. PATIENT DENIES PAIN AT THIS TIME. VS STABLE. PATIENT TOLERATING ICE CHIPS. CALL LIGHT IN REACH WILL CONTINUE TO MONITOR PATIENT.
--- NOTE | 2019-05-11 17:05 | Operative Report ---
DATE OF PROCEDURE: 05/11/2019 SURGEON: Klever Saul MD PREOPERATIVE DIAGNOSIS: Intestinal obstruction. POSTOPERATIVE DIAGNOSIS: Intestinal obstruction with adhesions. OPERATIVE PROCEDURE: Laparoscopic lysis of adhesions. POWER SHOVEL OPERATOR HELPER: Polo. ANESTHESIA: General endotracheal, Dr. Andrade. INDICATIONS FOR SURGERY: A 58-year-old female with several-day history of abdominal pain and vomiting with CT scan showing evidence of high-grade small bowel obstruction. The patient received an NG tube decompression without improvement. She consented for diagnostic laparoscopy, possible open bowel resection. PROCEDURE FINDING: High-grade bowel obstruction secondary to adhesions from prior operation. DESCRIPTION OF PROCEDURE: The patient was brought to OR intubated. The abdomen was prepped with alcohol and draped in sterile fashion. A direct port access using the laparoscope was carried out in the left upper quadrant. Insufflation of the peritoneal cavity was then carried out under direct vision. We encountered adhesions from prior surgery from the small bowel to the anterior abdominal wall. There is evidence of dilated loops of small bowel throughout the abdomen. We proceeded to take down the adhesion to the abdominal wall 1st using scissors and ligatures without injuring the small bowel. The prior ileocolic anastomosis from previous right colectomy was identified and the normal caliber ileum is then walked backwards to the point of obstruction, which is in the lateral pelvic wall. The adhesion was taken down with sharp scissor dissection. More proximally, there is also a high-grade obstruction from an adhesive band straddling the mesentery and the small bowel causing high-grade obstruction. This band was divided with scissors. The rest of the small bowel was run towards the ligament of Treitz with no further point of obstruction. Operative field was then irrigated. Hemostasis achieved. The liver is then identified as a large mass just to the right of the gallbladder suspicious for metastatic disease. A small liver lesion just adjacent to the mass was excised with scissors and submitted for pathology. Hemostasis achieved. All ports removed under direct vision. Fascial closure with 0 Vicryl. Skin was closed with subcuticular stitch. The patient was extubated and transported to recovery room in guarded condition. BLOOD LOSS: Approximately 5 mL. Klever Saul MD [facility]/MODL /[id number]
[2019-05-11] MEDS ORDERED: SEVOFLURANE INHAL SOLN 250 ML PEN BTL ONE (17:40)
[2019-05-11] MEDS ORDERED: PROPOFOL IV EMULSION 10 MG/ML 20 ML VIAL ONE (17:40)
[2019-05-11] MEDS ORDERED: ROCURONIUM BROMIDE 10 MG/ML 5ML VIAL IV ONE (17:40)
[2019-05-11] MEDS ORDERED: LIDOCAINE HCL 2% LOCAL INJ 5 ML SDV VIAL INJ ONE (17:40)
[2019-05-11] MEDS ORDERED: ONDANSETRON HCL INJ 2MG/ML 2ML 2 MG/ML VIAL ONE (17:40)
[2019-05-11] MEDS ORDERED: SUCCINYLCHOLINE CHLORIDE 20 MG/ML 10ML VIAL ONE (17:40)
[2019-05-11] MEDS ORDERED: MIDAZOLAM HCL 2 MG/2 ML VIAL ONE (18:07)
[2019-05-11] MEDS ORDERED: FENTANYL CITRATE/PF 100MCG/2 ML INJ ONE (18:07)
[2019-05-12] VITALS (10 sets, daily range): BP systolic 115–132; BP diastolic 56–66
[2019-05-12] MEDS: PIPER-TAZ 3.375 GM 50 ML IV SCH ×5 (03:31→23:24)
[2019-05-12] MEDS ORDERED: SODIUM CHLORIDE 0.9% 1000ML 2,000 ML ONE (08:55)
--- NOTE | 2019-05-12 09:03 | NUR ---
DIALYSIS IN PROGRESS
--- NOTE | 2019-05-12 10:15 | NUR ---
Pt unavailable at this time. Pt undergoing dialysis. I will follow up as able. MILDRED Castrejon [facility] O: [phone]
--- NOTE | 2019-05-12 13:30 | NUR ---
DIALYSIS FINISHED, REPORTED 500ML REMOVED BY DIALYSIS NURSE, PT TOLERATED WELL
--- NOTE | 2019-05-12 13:37 | NUR ---
DR ROGER IN TO SEE PATIENT, DISCUSSED PLAN OF CARE ORDERS, REMOVE NG TUBE AND PLACE ON CLEAR LIQUID
--- NOTE | 2019-05-12 14:05 | NUR ---
NGT REMOVED PER MD ORDER, PT TOLERATED WELL, REPOSITIONED FOR COMFORT, PINK DRESSING APPLIED, PT GIVEN WATER AND JELLO PER REQUEST, CALL LIGHT WITHIN REACH Addendum: 05/12/19 at 1612 by Sumi Pierce RN WOUNDS NOTED TO SACRAL AREA, 2 OPEN CIRCULAR WOUNDS, REDNESS SURROUNDING
--- NOTE | 2019-05-12 14:30 | NUR ---
SPOKE WITH DAUGHTER, SELINA, UPDATED ON PATIENT STATUS
--- NOTE | 2019-05-12 16:04 | NUR ---
SPOKE WITH DAUGHTER SELINA, SHE STATES SHE DOES NOT WANT HER MOTHER RETURNING TO [facility], IS VERY UNHAPPY WITH THE CARE SHE RECEIVED THERE. LET HER KNOW WHAT FACILITIES THAT DR TSANG GOES TO SO SHE CAN STAY WITH HER DOCTOR. SHE GAVE VERBAL CONSENT FOR FOCUSED CARE GINA. SPOKE WITH NURSE TO GET PT EVALUATION AND WOUND CARE.
--- NOTE | 2019-05-12 16:31 | NUR ---
Nutrition Screen Note RD Recommendation for Physician: - When feasible, ADAT to goal of 1800 ADA, Renal, GI Soft. Plan of Care: RD following, monitoring for tolerance and adequacy Nutrition reason for involvement: Nutrition Risk Trigger Primary Diagnose(s): intractable N/V, ESRD PMH:for colon cancer, partial colectomy, heart failure, ESRD on HD, CVA, DM, COPD, DM Ht: 65 in Wt: 139.06 lb BMI: 23.1 kg/m2 IBW: [address] Assessment: (05/11) 58 YOF admitted for N/V with probable SBO and possible hepatic mass per MD notes. Pt seen today per MST screen, pt s/p ex-lap yesterday. NGT with no output today, RN removing NGT at time of visit. Pt tolerating water and ice chips. Pt reports N/V and decreased po intake x 2 days, she states she was previously eating well. Pt denies wt loss and denies difficulties chewing or swallowing. GI distress has resolved. LBM 05/10. Chart reviewed. Labs and meds reviewed. Will continue to monitor. Current Diet: NPO Malnutrition Evaluation (05/12/19) The patient does not meet criteria for a specified degree of malnutrition at this time. Will re-evaluate at follow-up as appropriate. Diet Education Needs Assessment: Diet education not indicated, pt NPO. Diet tolerance: pending Nutrition Care Level: Low Signed: Nereyda Villasenor RD, LD, [facility]
[2019-05-12] MEDS ORDERED: EPOETIN ALFA-EPBX 10,000 UNIT/ML VIAL SC SCH (17:00)
[2019-05-13] MEDS: PIPER-TAZ 3.375 GM 50 ML IV SCH ×2 (02:00→08:15)
[2019-05-13 03:56] VITALS: BP 137/65
[2019-05-13 03:58] VITALS: BP 137/65
[2019-05-13 05:53] LABS: BASOPHILS % 0.4 % (0.0-1.0); EOSINOPHILS # (AUTO) 0.2 (0.0-0.4); EOSINOPHILS % 2.9 % (0.0-6.0); HEMATOCRIT 29.4 % (34.2-44.1); HEMOGLOBIN 8.6 g/dL (12.0-16.0); LYMPHOCYTES # (AUTO) 0.9 (1.0-3.2); MEAN CORPUSCULAR HEMOGLOBIN 31.7 pg (28-32); MEAN CORPUSCULAR HGB CONC 29.3 g/dL (31-35); MEAN CORPUSCULAR VOLUME 108.5 fL (81-99); NEUTROPHILS # (AUTO) 3.1 (2.1-6.9); NEUTROPHILS % 60.3 % (38.7-80.0); PLATELET COUNT 308 x10e3/uL (140-360); RED BLOOD COUNT 2.71 x10e6/uL (3.6-5.1); RED CELL DISTRIBUTION WIDTH 17.2 % (11.7-14.4)
[2019-05-13 06:20] LABS: ALBUMIN 2.6 g/dL (3.5-5.0); ALKALINE PHOSPHATASE 75 IU/L (40-150); ANION GAP 12.2 mmol/L (8-16); BLOOD UREA NITROGEN 14 mg/dL (7-26); BUN/CREATININE RATIO 4 (6-25); CALCIUM 8.1 mg/dL (8.4-10.2); CARBON DIOXIDE 29 mmol/L (22-29); CHLORIDE 99 mmol/L (98-107); CREATININE, SERUM 3.47 mg/dL (0.57-1.11); EST GLOMERULAR FILTRATION RATE 14 ML/MIN (60-); GLUCOSE 104 mg/dL (74-118); POTASSIUM 4.2 mmol/L (3.5-5.1); SODIUM 136 mmol/L (136-145)
[2019-05-13 06:21] LABS: ALANINE AMINOTRANSFERASE < 6 IU/L (0-55)
[2019-05-13 06:56] LABS: FERRITIN 1229.47 ng/mL (4.63-204.00)
[2019-05-13 07:45] VITALS: BP 130/62
--- NOTE | 2019-05-13 08:40 | NUR ---
PT CLEANSED OF BM, REPOSITIONED , HOB ELEVATED, PT TOLERATED BREAKFAST WELL, CALL LIGHT WITHIN REACH
--- NOTE | 2019-05-13 08:49 | NUR ---
MD ROGER INTO SEE PT DISCUSSED POC, ORDERS NOTED
[2019-05-13 09:37] LABS: CLARITY,URINE SL CLOUDY (CLEAR); COLOR,URINE YELLOW (YELLOW)
[2019-05-13 09:38] LABS: KETONES,URINE NEGATIVE (NEGATIVE); LEUKOCYTE ESTERASE ,URINE TRACE (NEGATIVE); NITRITE,URINE NEGATIVE (NEGATIVE); PROTEIN,URINE DIPSTICK >=300 (NEGATIVE)
[2019-05-13 09:39] LABS: BILIRUBIN,URINE SMALL (NEGATIVE); URINE UROBILINOGEN 0.2 mg/dL (0.2 - 1)
[2019-05-13 10:11] LABS: RBC,URINE >50 /HPF (0-5); WBC,URINE (MAN) 21-50 /HPF (0-5)
[2019-05-13 10:12] LABS: BACTERIA,URINE MANY /HPF; EPITHELIAL CELLS,URINE FEW /LPF
[2019-05-13 12:06] VITALS: BP 133/63
[2019-05-13] MEDS: PIPERACILLIN/TAZO 2.25 GM 50 ML IV SCH ×2 (13:48→20:59)
--- NOTE | 2019-05-13 13:53 | NUR ---
TELEPHONED WOUND CARE CENTER, LEFT MESSAGE FOR CALL BACK
[2019-05-13 16:00] VITALS: BP 133/63
--- NOTE | 2019-05-13 16:00 | NUR ---
TELEPHONED MD Willa TSANG TO MAKE AWARE OF ELEVATED GLUCOSE LEVEL AND TO CLARIFY ORDERING HOME MEDICATIONS, AWAITING CALL BACK
[2019-05-13] MEDS ORDERED: CELEBREX100 MG PO (16:35)
[2019-05-13] MEDS ORDERED: NORCO 7.5-3251 EACH PO (16:35)
[2019-05-13] MEDS ORDERED: DUONEB INH (16:35)
[2019-05-13] MEDS ORDERED: LANTUS 3ML100 UNITS/ SQ (16:35)
[2019-05-13] MEDS ORDERED: ZOFRAN4 MG PO (16:35)
[2019-05-13] MEDS ORDERED: COREG3.125 MG PO (16:35)
[2019-05-13] MEDS ORDERED: ASPIR 8181 MG PO (16:35)
[2019-05-13] MEDS ORDERED: PLAVIX75 MG PO (16:35)
--- NOTE | 2019-05-13 16:37 | NUR ---
HOME MEDICATIONS CLARIFIED BY ORDER SUMMARY [facility] IN CHART, SPOKE WITH MD Willa TSANG, ORDERS NOTED
[2019-05-13] MEDS ORDERED: CELECOXIB 100 MG CAP PO PRN (16:45)
[2019-05-13] MEDS ORDERED: HYDROCODONE/APAP 7.5MG-325MG 1 EA TAB PO PRN (16:45)
[2019-05-13] MEDS ORDERED: NON-FORMULARY MEDICATION (Ondansetron Hcl* (Zofran*) 4 MG) PO PRN (16:45)
[2019-05-13] MEDS ORDERED: CELECOXIB 200 MG CAP PO PRN (17:15)
[2019-05-13] MEDS ORDERED: ONDANSETRON HCL 4 MG ORAL DISINTEGRATING TAB PO PRN (17:30)
[2019-05-13] MEDS: SEVELAMER CARBONATE 800 MG TAB PO SCH (17:43)
[2019-05-13] MEDS: ONDANSETRON HCL INJ 2MG/ML 2ML 2 MG/ML VIAL IV PRN ×2 (17:44→20:51)
--- NOTE | 2019-05-13 17:45 | NUR ---
PT C/O NAUSEA AFTER EATING TOMATO SOUP, MEDICATED PER MD ORDER FOR NAUSEA, PT REPOSITIONED , HOB ELEVATED, CALL LIGHT WITHIN REACH
[2019-05-13] MEDS ORDERED: DUONEB INH SCH (18:00)
[2019-05-13] MEDS ORDERED: ALBUTEROL/IPRATROPIUM 3 ML NEB INH SCH (19:00)
--- NOTE | 2019-05-13 19:11 | NUR ---
WALKING ROUNDS PERFORMED, RECEIVED PT LAYING SEMI FOWLERS IN BED, AAOX3, RR EVEN AND NON-LABORED, ON ROOM AIR. PT REPORTS FEELING NAUSEATED. PROVIDED PT WITH EMESIS BAG AND RAISED BED TO FOWLERS POSITION. LEFT PT LAYING FOWLERS IN BED, BED IN LOW LOCKED POSITION, SIDE RAILS UPX2, CALL LIGHT AND PHONE WITHIN REACH.
[2019-05-13 20:16] VITALS: BP 139/74
[2019-05-13] MEDS: MORPHINE SULFATE INJ 4 MG/ML INJ 1ML IV PRN (20:51)
[2019-05-13] MEDS ORDERED: INSULIN GLARGINE 100 UNITS/ML VIAL SQ SCH (21:00)
[2019-05-13] MEDS ORDERED: INSULIN GLARGINE SQ SCH (21:00)
[2019-05-13] MEDS ORDERED: ATORVASTATIN 40 MG TAB PO SCH (21:00)
[2019-05-13] MEDS ORDERED: ATORVASTATIN 20 MG TAB PO SCH (21:00)
--- NOTE | 2019-05-13 21:00 | NUR ---
PT REPORTS NEED TO VOMIT. PROVIDED PT WITH EMESIS BAG. PT VOMITED 250ML OF GREEN EMESIS. PT REPORTS NAUSEA HAS DECREASED. LEFT PT LAYING FOWLERS IN BED, BED IN LOW LOCKED POSITION, SIDE RAILS UPX2, CALL LIGHT AND PHONE WITHIN REACH.
--- NOTE | 2019-05-13 22:10 | NUR ---
SPOKE WITH MD Dale TSANG CONCERNING PT N/V. NEW ORDERS RECEIVED.
[2019-05-13] MEDS ORDERED: METOCLOPRAMIDE HCL 10 MG/2ML VIAL IV ONE (22:15)
[2019-05-13] MEDS: CARVEDILOL 3.125 MG TAB PO SCH (22:38)
[2019-05-13] MEDS ORDERED: ONDANSETRON HCL INJ 2MG/ML 2ML 2 MG/ML VIAL IV PRN (23:15)
[2019-05-13] MEDS ORDERED: BISACODYL 10 MG SUPP PR ONE (23:45)
--- NOTE | 2019-05-14 01:00 | Diagnostic Imaging Report ---
Abdomen/KUB INDICATION: Small bowel obstruction ^N/V HX OF BOWEL OBSTRUCTION ^[id number] ^0035 ^Y COMPARISON: Abdomen x-ray 05/11/2019, CT chest, abdomen, pelvis 05/10/2019. FINDINGS: Portable, supine image obtained at 0034 hours. Medical Devices: Cancellous screws in the proximal left femur are stable. No enteric tubes. Stable chain sutures in the right hemiabdomen. Bowel: Multiple dilated small bowel loops are redemonstrated measuring up to 5 cm. No pneumatosis. The stomach is distended with air. Free air: None Abdominal calcifications: None over the renal shadows or along the expected course of the ureters. Organomegaly: None Bones: Stable IMPRESSION: Stable small bowel dilatation consistent with obstruction. New gastric dilatation. Signed by: Dr. Rosie Murguia MD on 05/14/2019 12:56 AM
--- NOTE | 2019-05-14 02:57 | NUR ---
WANDAB RESULTS CALLED TO MD Dale TSANG. NEW ORDERS RECEIVED.
[2019-05-14] MEDS: METOCLOPRAMIDE HCL 10 MG/2ML VIAL IV SCH ×2 (05:37→12:00)
[2019-05-14] MEDS: PIPERACILLIN/TAZO 2.25 GM 50 ML IV SCH (05:37)
[2019-05-14] MEDS ORDERED: TRELEGY INH SCH (06:00)
--- NOTE | 2019-05-14 06:41 | Diagnostic Imaging Report ---
Abdomen/KUB INDICATION: ^N/V, HX OF BOWEL OBSTRUCTION ^[id number] ^0615 ^Y COMPARISON: Abdomen x-ray [address] abdomen/pelvis 05/10/2019 FINDINGS: Portable, supine image obtained at 0614 hours. Medical Devices: Stable screws in the left femoral head and stable chain sutures in the right hemiabdomen. Bowel: Dilated small bowel loops are redemonstrated measuring up to 5.5 cm in diameter. No evidence of pneumatosis. There is air in the transverse colon and rectum. No significant burden of stool. Free air: None Abdominal calcifications: None over the renal shadows or along the expected course of the ureters. Organomegaly: None Bones: Stable IMPRESSION: Increasing small bowel dilatation consistent with high-grade partial obstruction. Signed by: Dr. Rosie Murguia MD on 05/14/2019 6:37 AM
--- NOTE | 2019-05-14 07:05 | NUR ---
RCD PT AT BED PT IS ALERT AND ORIENTED RESTING ON BED NO SIGNS OF ANY DISTRESS NOTED IV PATENT BY SALINE FLUSH BED LOW AND LOCKED CALL LIGHT IN REACH
--- NOTE | 2019-05-14 07:30 | NUR ---
NOTIFIED THE ABDOMINAL XRAY REPORT TO DR Davie TSANG HE SAID NOTIFY TO DR ROGER SO PAGED TO DR ROGER TO NOTIFY THE REPORT
[2019-05-14 08:00] VITALS: BP 120/59
[2019-05-14] MEDS: SEVELAMER CARBONATE 800 MG TAB PO SCH ×2 (08:00→12:00)
--- NOTE | 2019-05-14 08:00 | NUR ---
DR ROGER RETURNED THE CALL HE ASKED ANY NAUSEA OR VOMITING ANY OTHER PROBLEM ,AT PRESENT NO COMPLAINTS HE SAID OK TO CONTINUE THE SAME
--- NOTE | 2019-05-14 08:21 | NUR ---
WOUND CARE NOTE STILL NEEDED AND COVID ASSESSMENT FORM STILL NEEDS SIGNATURE BEFORE I CAN SEND TO FOCUSED CARE. PASRR COMPLETED AND RTF, WAITING FOR ADDITIONAL INFORMATION TO COMPLETE PACKET.
[2019-05-14 08:48] VITALS: BP 120/59
[2019-05-14] MEDS: CARVEDILOL 3.125 MG TAB PO SCH (09:00)
[2019-05-14] MEDS ORDERED: ESCITALOPRAM OXALATE 10 MG TAB PO SCH (09:00)
[2019-05-14] MEDS ORDERED: NON-FORMULARY MEDICATION (Escitalopram Oxalate (Lexapro) 20 MG) PO SCH (09:00)
[2019-05-14] MEDS ORDERED: CEFTRIAXONE SOD 1 GM/NS 50 ML 50 ML IV SCH (11:30)
[2019-05-14 12:00] VITALS: BP 129/67
--- NOTE | 2019-05-14 12:12 | NUR ---
WOUND CARE CONSULT 58 YO FEMALE HX OF ESRD , HIP FX AND LOOSE STOOL LIZBETH 14 0N CONSERVATIVE / MODERATE PUP STATUS AND INTERVENTIONS LABS: WBC- 5.17 HGB- 8.6 SKIN ASSESSMENT COMPLETE PATIENT PRESENTS WITH SACRAL UNSTAGEABLE ULCERATIONS TO RIGHT AND LEFT SACRUM MEASURES 1.5CM X1.5CM WITH YELLOW SLOUGH COVERING WOUND BASE SERENA STAGE 1 MEASURES 7CM X 10 CM RED SLOW BLANCHABLE ALSO MIXED DENUDED AREA R/T LOOSE STOOL REPORTED BY PATIENT FOR LAST COUPLE OF DAYS RECOMMENDATIONS : NURSING TO CONTINUE TO MONITOR PATIENT AND KEEP SKIN CLEAN AND FREE FROM LOOSE STOOL OR IRRITATING MOISTURE AND CONTINUE TO FOLLOW MODERATE PUP INTERVENTIONS NURSING TO CONTINUE TO GET PATIENT OUT OF BED FOR MEALS AND MUCH TOLERATED NURSING TO CLEAN SACRAL UNSTAGEABLE ULCERATION WITH NORMAL SALINE DAILY AND APPLY SANTYL OINTMENT TO YELLOW SLOUGH RIGHT AND LEFT SACRUM COVER WITH ALLEVYN FOAM DRESSING Addendum: 05/14/19 at 1214 by Joseph Ross RN Amended: Links added.
--- NOTE | 2019-05-14 12:32 | NUR ---
FAXED CLINICALS TO FACILITY.
[2019-05-14] MEDS ORDERED: METRONIDAZOLE 500MG/NS 100ML 100 ML IV SCH (13:00)
--- NOTE | 2019-05-14 13:00 | NUR ---
DIALYSIS DONE AND REMOVED 1 LTRS
--- NOTE | 2019-05-14 13:54 | NUR ---
DC QUINTANA BY ORDER 50 ML URINE IN THE BAG
--- NOTE | 2019-05-14 14:19 | NUR ---
[facility] DISCHARGE INFORMATION PATIENT HAS BEEN ACCEPTED TO: NAME: CHARLENE FUENTES ADDRESS:[address] [place] [address] ACCEPTING LINOLEUM LAYER:MARLO IRAHETA ACCEPTING MD:TRINH ROOM:[id number] NURSE CALL REPORT TO: [phone] IMM SIGNED AND OBTAINED (if applicable): IMM THE FOLLOWING DOCUMENTS MUST ACCOMPANY PATIENT FOR TRANSFER: COPIED CHART: PACKET
--- NOTE | 2019-05-14 14:49 | NUR ---
REPORT GIVEN TO MATY DONOHUE
--- NOTE | 2019-05-14 16:00 | NUR ---
DR ROGER CAME TO SEE THE PT HE IS OK TO DISCHARGE THE PATIENT
--- NOTE | 2019-05-14 16:15 | NUR ---
PT DISCHARGED TO [facility] IN SAFE CONDITION
[2019-05-15] MEDS ORDERED: COLLAGENASE OINTMENT 30 GM TUBE TP SCH (09:00)
--- NOTE | 2019-06-22 17:50 | Discharge Summary ---
CHIEF COMPLAINT: Abdominal pain. FINAL DIAGNOSES: Abdominal pain, aspiration pneumonia, end-stage renal disease on dialysis, status post exploratory laparotomy with lysis of adhesions, status post open reduction and internal fixation left hip fracture. DISPOSITION: Discharge to [facility]. HOSPITAL COURSE: A 58-year-old female with history of diabetes type 2, end-stage renal disease dialysis dependent, and status post recent ORIF of left hip. She was brought to the ER with a several day history of increased abdominal pain associated with nausea and vomiting. Underwent review and evaluation in the ER. Studies were performed. The patient was noted to have a soft abdomen, diffuse tenderness, hypoactive sounds. X-rays and lab work performed. Findings were showing evidence of small bowel obstruction. NG tube was placed. Admission was made for treatment regarding abdominal pain, nausea, vomiting, finding of small bowel obstruction, status post fall with left hip fracture, end-stage renal disease, hypertension, diabetes type 2. We will continue NG tube to low intermittent wall suction, continue to monitor the patient's blood sugars, continue with her dialysis schedule requested surgical review. With her admission regarding the small bowel obstruction findings she was being reviewed by Surgery, Dr. Saul and following his evaluation his impression was abdominal pain and vomiting with evidence of bowel obstruction on CT scan. I agree with the NG tube placement. We will be following serial abdomen x-rays and due to persistent obstruction we will be proceeding with laparoscopic procedure possible open. Infectious Disease, Dr. Hayward in relation to the small bowel obstruction and with his review his impression was small bowel obstruction, aspiration pneumonia, agree with the antibiotic choice, agree with NG tube placement. History of colon cancer. History of end-stage renal disease on dialysis. With abnormal infiltrates on chest x-ray findings Dr. Najera was followup for a Pulmonary standpoint and his review reveals faint areas of dependent atelectasis, inflammation in the right lower lobe, possible hepatic mass. Continue current antibiotics. Continue NG tube protocols. Clinical picture is not consistent with pneumonia or any pulmonary infection at this time and Nephrology was brought in with Dr. Carlson regarding the dialysis needs. His assessment was end-stage renal disease. We will continue her schedule on Friday, Friday, and Friday protocol. She has anemia secondary to chronic kidney disease, we will be starting Epogen if the hemoglobin drops below 10. A 4.9 cm hepatic mass and a 5.0 cm left adrenal mass. SURGICAL PROCEDURE: Dr. Saul on 05/11/2019, preop diagnosis was intestinal obstruction and postop diagnosis was the same with effusions. Procedure was laparoscopic lysis of adhesion. Findings of the procedure were high-grade bowel obstruction secondary to adhesions from prior operation. The patient tolerated the procedure well. Estimated blood loss approximately 5 mL. Return to recovery room in good condition. In the ER, the patient was placed on the Med-Surg floor, was n.p.o. status. NG tube was on board. The patient was started on IV antibiotics, was given medications for pain as well and also for nausea. Her lab studies were being monitored. She underwent the surgical review. She was scheduled for the diagnostic laparoscopy. Prior to this, she was also being reviewed by GI, Dr. Carlos Alberto Hernandez and his findings reveal small bowel obstruction probably secondary to adhesions. Continue the NG tube suction. See further KUB followups. CT findings are also somewhat concerning for evidence of adrenal mass and hepatic mass. Family concern now with her small bowel obstruction. Dialysis procedures were being managed by Dr. Carlson. Blood sugars were watched closely as well. Following her procedure she was continuing n.p.o. status, continuing with her NG tube. Her NG tube was finally discontinued. Her diet was being slowly advanced as tolerated. Lab studies were remaining stable. Her diet continued to be advance further as she was tolerating previous diets well, now started on Reglan daily. She will need and require further postop care and case management assistance and subsequently IMAGING: Abdomen and pelvis CT shows high-grade small bowel obstruction with transition point in the right lower quadrant assessed in the absence of IV contrast. Ground glass opacities in both lung bases, more so in the right lower lobe to be concerning for pneumonia possible viral or aspiration. Rectal wall thickening correlate with proctitis. mitral annular calcific valvular disease/cardiomegaly. Chest x-ray shows mild cardiomegaly, patchy opacity in the lung bases concerning for pneumonia. Finding of small bowel obstruction. Followup abdomen and pelvis CT mass was reviewed again, the adrenal mass was reviewed again. X-rays continued final abdomen x-ray shows increasing small bowel dilatation consistent with high-grade partial obstruction . Laboratory studiesshow stable white cell count, initial H and H 11.0 and 34.8. Final white cell count 5000, final H and H 8.6 and 29.4. Urinalysis 3+ occult blood, greater than 50 rbc's by high-power field, 21-50 wbc's by high-power field, many bacteria. Chemistries; initial studies, electrolytes stable. Kidney functions BUN 29, creatinine 6.94, glucose 189. BNP was 2115.2. Anemia panel shows an iron 57, TIBC of over 214, oxygen saturation 27, transferrin low at 153, ferritin elevated at . Final electrolytes were stable. Final glucose was 99, values were as high as 202. The patient recovered from her procedure, but will require further postop rehab and arrangements will be made to transfer the patient, should transfer to [facility], transferred in stable condition for IV fluids. No equipments or supplies were necessary. No drains or [place] were needed. Will continue to have her diet advanced as tolerated. I will be keeping you abreast of the patient's condition to the staff Dictated by DARYN Henson Alvarez Hernandez MD CC/MODL /[id number]
== END 2019-05-14 16:11 | DRG 335 ==
LOC: ER 04:43 → ERHOLD 07:05 → MED/SURG2 11:38 → MED/SURG 05-11 16:31
PROC: 5A1D70Z Performance of Urinary Filtration, Intermittent, Less than 6 Hours Per Day (ICD-10-PCS; 2019-05-10)
PROC: 0DN84ZZ Release Small Intestine, Percutaneous Endoscopic Approach (ICD-10-PCS; 2019-05-11)
PROC: 0FB04ZX Excision of Liver, Percutaneous Endoscopic Approach, Diagnostic (ICD-10-PCS; 2019-05-11)
PROC: 0DNB4ZZ Release Ileum, Percutaneous Endoscopic Approach (ICD-10-PCS; principal; 2019-05-11 13:30)
DX: K56.51 Intestinal adhesions [bands], with partial obstruction (principal); N18.6 End stage renal disease; J69.0 Pneumonitis due to inhalation of food and vomit; I12.0 Hypertensive chronic kidney disease with stage 5 chronic kidney disease or end stage renal disease; Z99.2 Dependence on renal dialysis; R16.0 Hepatomegaly, not elsewhere classified; E11.22 Type 2 diabetes mellitus with diabetic chronic kidney disease; J44.9 Chronic obstructive pulmonary disease, unspecified; I25.10 Atherosclerotic heart disease of native coronary artery without angina pectoris; D63.1 Anemia in chronic kidney disease; Z85.038 Personal history of other malignant neoplasm of large intestine
CPT/HCPCS: 36415; 71046; 71260; 74018; 74176; 74177; 80048; 80053; 81001; 82550; 82553; 82607; 82728; 82746; 82948; 83540; 83605; 83880; 84100; 84466; 84484; 85025; 85045; 85610; 87040; 87340; 88307; 90962; 93005; 96361; 97139; 99251; 99284; J0330; J0696; J1815; J2001; J2060; J2250; J2270; J2405; J2543; J2765; J3010; J7030; J7050; Q9967

== ENCOUNTER 2019-06-07 04:36 | Inpatient (IN) | payer MEDICARE, OTHER ==
[~2019-06-07] VITALS: Ht 165.1 cm; Wt 68.5 kg
[2019-06-07] VITALS (15 sets, daily range): BP systolic 132–180; BP diastolic 65–90
[~2019-06-07 04:36] MED LIST changes: +ASPIR 8181 MG PO; +CELEBREX100 MG PO; +COREG3.125 MG PO; +DUONEB INH; +LANTUS 3ML100 UNITS/ SQ; +NORCO 7.5-3251 EACH PO; +PLAVIX75 MG PO; +ZOFRAN4 MG PO
[2019-06-07] MEDS ORDERED: ALBUTEROL SULFATE HFA 8GM INHALATION AEROSOL INH ONE (04:45)
[2019-06-07] MEDS ORDERED: IPRATROPIUM BROMIDE INHALER 12.9 GM INH INH ONE (04:45)
[2019-06-07] MEDS ORDERED: METHYLPREDNISOLONE SOD SUCC 125 MG/2ML VIAL IV ONE (04:45)
[2019-06-07 05:00] LABS: BASOPHILS # (AUTO) 0.1 (0.0-0.1); BASOPHILS % 0.6 % (0.0-1.0); EOSINOPHILS # (AUTO) 0.1 (0.0-0.4); EOSINOPHILS % 0.9 % (0.0-6.0); HEMATOCRIT 33.2 % (34.2-44.1); HEMOGLOBIN 10.4 g/dL (12.0-16.0); LYMPHOCYTES # (AUTO) 0.8 (1.0-3.2); LYMPHOCYTES % 9.8 % (18.0-39.1); MEAN CORPUSCULAR HEMOGLOBIN 30.1 pg (28-32); MEAN CORPUSCULAR HGB CONC 31.3 g/dL (31-35); MONOCYTES # (AUTO) 0.8 (0.2-0.8); MONOCYTES % 9.6 % (4.4-11.3); NEUTROPHILS # (AUTO) 6.3 (2.1-6.9); NEUTROPHILS % 78.6 % (38.7-80.0); PLATELET COUNT 344 x10e3/uL (140-360); RED BLOOD COUNT 3.46 x10e6/uL (3.6-5.1)
[2019-06-07] MEDS ORDERED: IPRATROPIUM/ALBUTEROL SULFATE 4 GM INH INH ONE (05:00)
[2019-06-07 05:20] LABS: ALANINE AMINOTRANSFERASE 8 IU/L (0-55); ALBUMIN 2.6 g/dL (3.5-5.0); ALBUMIN/GLOBULIN RATIO 0.7 (0.8-2.0); ALKALINE PHOSPHATASE 114 IU/L (40-150); ANION GAP 16.1 mmol/L (8-16); BLOOD UREA NITROGEN 29 mg/dL (7-26); BUN/CREATININE RATIO 6 (6-25); CALCIUM 9.5 mg/dL (8.4-10.2); CARBON DIOXIDE 25 mmol/L (22-29); CHLORIDE 95 mmol/L (98-107); CREATINE KINASE 10 IU/L (29-168); CREATININE, SERUM 4.74 mg/dL (0.57-1.11); EST GLOMERULAR FILTRATION RATE 9 ML/MIN (60-); GLUCOSE 184 mg/dL (74-118); POTASSIUM 4.1 mmol/L (3.5-5.1); SODIUM 132 mmol/L (136-145)
--- NOTE | 2019-06-07 05:29 | Diagnostic Imaging Report ---
EXAMINATION: CHEST SINGLE (PORTABLE) INDICATION: sob, h/o esrd due for diaylsis today COMPARISON: Chest radiograph 05/10/[address] chest 05/10/2019. FINDINGS: TUBES and LINES: None. LUNGS: Patchy and linear opacities in the left greater than right mid and bilateral lower lungs. PLEURA: Small right pleural effusion. No pneumothorax. HEART AND MEDIASTINUM: Cardiac size is mildly enlarged. BONES AND SOFT TISSUES: No acute osseous lesion. Soft tissues are unremarkable. UPPER ABDOMEN: No free air under the diaphragm. IMPRESSION: Findings of multifocal pneumonia. Signed by: Dr. Rajiv Briggs MD on 06/07/2019 5:26 AM
[2019-06-07] MEDS ORDERED: ONDANSETRON HCL INJ 2MG/ML 2ML 2 MG/ML VIAL IV STA (05:31)
[2019-06-07] MEDS ORDERED: ONDANSETRON HCL INJ 2MG/ML 2ML 2 MG/ML VIAL ONE (05:39)
[2019-06-07] MEDS ORDERED: VANCOMYCIN 1GM/NS 250 ML 250 ML IV ONE (05:45)
--- NOTE | 2019-06-07 06:09 | NUR ---
Patient swabbed for COVID at this time.
[2019-06-07] MEDS ORDERED: SODIUM CHLORIDE 0.9% 100 ML ONE (06:14)
[2019-06-07] MEDS: MEROPENEM 500MG 500 MG in SODIUM CHLORIDE 0.9% 50ML 50 ML IV SCH (06:28)
[2019-06-07] MEDS ORDERED: IPRATROPIUM/ALBUTEROL SULFATE 4 GM INH INH SCH (07:00)
--- NOTE | 2019-06-07 07:43 | NUR ---
Dr. William Najera in ER to see patient.
[2019-06-07] MEDS ORDERED: ONDANSETRON HCL 4 MG ORAL DISINTEGRATING TAB PO PRN (07:45)
[2019-06-07] MEDS ORDERED: DUONEB INH PRN (07:45)
[2019-06-07] MEDS ORDERED: DEXTROSE 50% SYRINGE 50 ML IV PRN (08:00)
[2019-06-07] MEDS ORDERED: ALBUTEROL/IPRATROPIUM 3 ML NEB INH PRN (08:15)
[2019-06-07] MEDS ORDERED: IPRATROPIUM/ALBUTEROL SULFATE 4 GM INH INH PRN (08:15)
--- NOTE | 2019-06-07 08:52 | Consultation ---
DATE OF CONSULTATION: Pulmonary Critical Care Consultation CHIEF COMPLAINT: Nausea and fever. HISTORY OF PRESENT ILLNESS: The patient is a 58-year-old woman. She has a history of colon cancer that required surgery 3 years ago. She has a history of end-stage renal disease. She was recently hospitalized at [facility] in April because of a partial small bowel obstruction. It improved with conservative measures including an NG tube and IV fluids. She now returns with some nausea. She notes fever as well as some cough. She reports some greenish phlegm. She does not complain of abdominal pain or chest pain. PAST SURGICAL HISTORY: 1. Status post colon cancer resection 3-4 years ago. 2. Prior angioplasty and stent of the left anterior descending artery. 3. Prior hip fracture. 4. History of AV fistula for dialysis. PAST MEDICAL HISTORY: 1. End-stage renal disease. 2. Diabetes. 3. Chronic obstructive pulmonary disease. 4. Coronary artery disease. 5. History of prior stroke. ALLERGIES: NO KNOWN DRUG ALLERGIES. SOCIAL HISTORY: The patient recently quit smoking. She is not a drinker. FAMILY HISTORY: Noncontributory. REVIEW OF SYSTEMS: She does report some fever. She has no headache. She has no neck pain. She is not having any chest pain. She reports some cough productive of greenish phlegm. She reports some dyspnea. She has no abdominal pain. She does have some nausea. She has no leg edema. PHYSICAL EXAMINATION: VITAL SIGNS: The patient is afebrile now. The blood pressure is 172/81, saturation is 97% on 4 L. Her pulse is 90. HEENT: Shows no facial swelling or erythema. CARDIAC: Reveals regular rate and rhythm with normal S1, S2. LUNGS: Auscultation of lungs reveals slightly decreased breath sounds at the bases. ABDOMEN: Soft, nontender. There is no rebound or guarding. EXTREMITIES: Shows no leg edema or calf tenderness. There is no cyanosis or clubbing. SKIN: Shows no rashes. NEUROLOGICAL: Shows no focal abnormalities. LABORATORY DATA: White blood cell count is 7.9 and hemoglobin is 10.4. The platelet count is 344. BUN to creatinine ratio is 29 to 4.74 and the sodium is 132. The BNP is 2552. RADIOGRAPHIC DATA: Chest x-ray shows patchy opacities in the lower lung tapia, left more than right. Chest x-ray from the 09 of May showed a similar hazy opacities at the lung bases as well as a partial small bowel obstruction that has since improved. CT scan of the chest shows the small bowel obstruction that has resolved. The patient also has ground-glass and tree-in-bud opacities in the dependent portions of the right lower lobe and right middle lobe concerning for aspiration. There is also a 4.9 cm hepatic mass as well as a 5 cm adrenal mass with both cystic and solid components. IMPRESSION: 1. Subacute bibasilar infiltrates with tree-in-bud appearance on CT scan. This may represent recurrent aspiration pneumonia. Alternative possibilities include atypical infections. 2. Adrenal mass. 3. Hepatic abnormality seen on CT scan from the 09 of May. 4. End-stage renal disease. 5. Anemia, unspecified. 6. Nausea with no abdominal tenderness. 7. History of recent small-bowel obstructions. PLAN: 1. Begin antibiotics for healthcare acquired infections. 2. Await culture results. 3. Speech therapy evaluation. 4. Dialysis is scheduled. 5. Coronavirus serology is pending. 6. The patient should have an MRI or CT dedicated to the liver. 7. Endocrine consultation or MRI for left adrenal mass. Danilo Najera MD [facility]/GALOL /[id number]
[2019-06-07] MEDS ORDERED: NON-FORMULARY MEDICATION ([Trelegy] 1 INH) INH SCH (09:00)
[2019-06-07] MEDS: CLOPIDOGREL BISULFATE 75 MG TAB PO SCH (09:19)
[2019-06-07] MEDS: ESCITALOPRAM OXALATE 10 MG TAB PO SCH (09:19)
[2019-06-07] MEDS: ASPIRIN 81 MG CHEW TAB PO SCH (09:19)
[2019-06-07] MEDS: SEVELAMER CARBONATE 800 MG TAB PO SCH ×2 (09:19→15:14)
--- NOTE | 2019-06-07 11:01 | NUR ---
INFECTIOUS DISEASE CONSULTATION NOTE CC: Fever, cough HPI: This is a 58 year old female with a PMH of colon cancer s/p resection 3 years ago. The patient has ESRD, and was recently hospitalized for a SBO. The patient was managed with conservative measures including NGT and IVF. The patient presented to the ED with nausea, cough. The patient reports productive cough. No complains of abdominal pain or chest pain. PMH: ESRD on HD, COPD, CAD, prior CVA, T2DM FAMILY HISTORY: non-contributory SOCIAL HISTORY: no smoking, drinking, or alcohol abuse ROS: Positive: productive cough, nausea Negative: diarrhea, abdominal pain, chest pain, vomiting ROS NEGATIVE PER 14 POINTS UNLESS OTHERWISE DOCUMENTED. PHYSICAL EXAM: VS: 98.8, 172/81, 90, 21 GENERAL: Afebrile, in ICU HEENT: normocephalic, non-icteric CV: s1, s2 without s3, s4, regular rate and rhythm CHEST: rhonchi and decreased breath sounds ABD: soft nontender, no rebound, no guarding EXT: no edema noted, no cyanosis, pulses present NEURO: no focal abnormalities LABS: COVID pending RADIOLOGY: IMPRESSION: Findings of multifocal pneumonia. IMPRESSION: 1. Multifocal PNA 2. Fever 3. ESRD on HD 4. Adrenal mass 5. Anemia 6. history of SBO PLAN: 06/07/19: Pending COVID19 results pcr. Endocrine consultation for adrenal mass. MRI of the liver recommended when able. HD scheduled per others. Vancomcyin and Merrem. RENAL DOSING. DISCUSSED WITH DR. POTTS THANK YOU FOR THE CONSULT!
[2019-06-07] MEDS: INSULIN REGULAR, HUMAN 100 UNIT/1 ML 3ML VIAL SQ SCH ×3 (11:11→20:58)
[2019-06-07] MEDS: IPRATROPIUM/ALBUTEROL SULFATE 4 GM INH INH SCH ×4 (11:50→23:29)
[2019-06-07] MEDS ORDERED: BISACODYL 10 MG SUPP PR SCH (13:30)
--- NOTE | 2019-06-07 13:43 | Progress Note ---
DATE: 06/07/2019 SUBJECTIVE: The patient is awaiting the results of her COVID-19 test. She is scheduled for dialysis today. She has some constipation. She has no vomiting or diarrhea. PHYSICAL EXAMINATION: VITAL SIGNS: The blood pressure is 156/65. Saturation is 97% on 2 L. HEENT: Shows no facial swelling or erythema. CARDIAC: Reveals regular rate and rhythm with normal S1, S2. LUNGS: Auscultation of lungs reveals rhonchorous breath sounds bilaterally. There is no wheezing. ABDOMEN: Soft and nontender. There is no rebound or guarding. EXTREMITIES: Show no leg edema or calf tenderness. There is no cyanosis or clubbing. SKIN: Shows no rashes. NEUROLOGICAL: Shows no focal abnormalities. IMPRESSION: 1. Subacute bibasilar infiltrates with tree-in-bud appearance on CT scan. 2. Hepatic abnormality seen on CT scan from the 09 of May. 3. Adrenal mass. 4. End-stage renal disease. 5. Anemia. 6. History of recent small bowel obstruction. PLAN: 1. Continue current antibiotics. 2. Complete dialysis. 3. Suppository. 4. Abdominal x-ray. 5. Discuss evaluation of liver and adrenal abnormalities with primary service. Danilo Najera MD [facility]/MODL /[id number]
[2019-06-07] MEDS ORDERED: SODIUM CHLORIDE 0.9% 1000ML 2,000 ML IV PRN (14:30)
[2019-06-07] MEDS ORDERED: ALBUMIN 25% 12.5GM 0.25 GM/ML BTL IV PRN (14:30)
[2019-06-07] MEDS ORDERED: SODIUM CHLORIDE 0.9% 250ML 500 ML IV PRN (14:30)
[2019-06-07] MEDS ORDERED: MANNITOL 25% 12.5GM/50 ML VIAL IV PRN (14:30)
[2019-06-07] MEDS ORDERED: VANCOMYCIN 1GM/NS 250 ML 250 ML ONE (14:52)
[2019-06-07 16:11] LABS: CREATINE KINASE 7 IU/L (29-168)
[2019-06-07] MEDS ORDERED: BISACODYL 10 MG SUPP PR ONE (16:49)
[2019-06-07] MEDS: VANCOMYCIN 1GM/NS 250 ML 250 ML IV SCH (18:43)
--- NOTE | 2019-06-07 18:49 | Consultation ---
DATE OF CONSULTATION: Initial Nephrology Consultation Report REASON FOR CONSULTATION: Chronic kidney disease, stage 5. HISTORY OF PRESENT ILLNESS: Ms. Jeffery is a 58-year-old female. She is a chronic dialysis patient. She gets dialysis routinely on Friday, Friday, and Friday. The patient presented to the hospital because of some shortness of breath and breathing difficulty. She was diagnosed as having bilateral pneumonia. She is also being ruled out for COVID-19. PAST MEDICAL HISTORY: The patient has a history of congestive heart failure, history of COPD, history of end-stage renal disease, history of hypertension, history of anemia, and history of hyperlipidemia. MEDICATIONS: At home, the patient takes albuterol, aspirin, atorvastatin, Plavix, Lexapro, insulin, and Renvela. PHYSICAL EXAMINATION: VITAL SIGNS: Her blood pressure is 164/84 and pulse is 90. GENERAL: The patient has limited physical exam because the patient is in COVID isolation. She has AV fistula of the left arm. She is on nasal cannula oxygen. LABORATORY RESULTS: Hemoglobin and hematocrit are 10 and 33 respectively. Sodium 132, potassium 4.1, chloride 95, bicarb 25, BUN and creatinine are 29 and 4.7 respectively, and calcium 9.5. BNP 2552. IMPRESSION/PLAN: 1. Chronic kidney disease, stage 5. 2. Multilobar pneumonia. 3. Diabetes. 4. Hypertension. PLAN: The patient is scheduled to get dialysis today. We will dialyze her with AV fistula with 3 potassium, 2.5 calcium. She probably has an ordinary pneumonia. She is probably very fluid overloaded, so we will probably not take off any fluid, may be we will just take off 1 L maximum. She is being ruled for COVID-19. I will follow up the patient with you. Thank you for this consultation. Ather MD [facility]/EVER /[id number]
[2019-06-07] MEDS ORDERED: LABETALOL HCL 5 MG/ML 20ML VIAL IV PRN (19:15)
--- NOTE | 2019-06-07 20:41 | Diagnostic Imaging Report ---
Abdomen/KUB INDICATION: ^Prior small bowel objective ^[id number] ^1929 COMPARISON: Abdomen x-ray 05/14/2019. FINDINGS: Bowel: No evidence of obstruction.. The previously seen dilated small bowel loops have resolved. Large volume of stool is seen in the colon.. Free air: None Abdominal calcifications: None over the renal shadows or along the expected course of the ureters. Organomegaly: None Bones: Stable screws in the left femoral head and stable chain sutures in the right hemiabdomen. IMPRESSION: Large volume of stool in the colon suggestive of constipation. No obstruction. Signed by: Emanuel Montes MD on 06/07/2019 8:38 PM
[2019-06-07] MEDS: ATORVASTATIN 40 MG TAB PO SCH (20:51)
[2019-06-07] MEDS: CARVEDILOL 3.125 MG TAB PO SCH (20:51)
[2019-06-07] MEDS: INSULIN GLARGINE 100 UNITS/ML VIAL SQ SCH (20:57)
[2019-06-07] MEDS: SALMETEROL/FLUTICASONE 250/50 INH SCH (21:17)
[2019-06-07] MEDS: HYDROCODONE/APAP 7.5MG-325MG 1 EA TAB PO PRN (21:17)
[2019-06-08] VITALS (15 sets, daily range): BP systolic 120–159; BP diastolic 67–90
[2019-06-08] MEDS ORDERED: MEROPENEM 500 MG VIAL ONE (04:06)
[2019-06-08] MEDS ORDERED: SODIUM CHLORIDE 0.9% 500ML 500 ML ONE (04:07)
[2019-06-08] MEDS ORDERED: SODIUM CHLORIDE 0.9% 100 ML ONE (04:17)
[2019-06-08 05:21] LABS: BASOPHILS % 0.3 % (0.0-1.0); EOSINOPHILS % 0.4 % (0.0-6.0); HEMATOCRIT 31.3 % (34.2-44.1); HEMOGLOBIN 9.3 g/dL (12.0-16.0); LYMPHOCYTES # (AUTO) 1.1 (1.0-3.2); LYMPHOCYTES % 15.9 % (18.0-39.1); MEAN CORPUSCULAR HEMOGLOBIN 29.5 pg (28-32); MEAN CORPUSCULAR HGB CONC 29.7 g/dL (31-35); MEAN CORPUSCULAR VOLUME 99.4 fL (81-99); MONOCYTES # (AUTO) 1.1 (0.2-0.8); MONOCYTES % 16.9 % (4.4-11.3); NEUTROPHILS # (AUTO) 4.4 (2.1-6.9); NEUTROPHILS % 65.9 % (38.7-80.0); PLATELET COUNT 370 x10e3/uL (140-360); RED BLOOD COUNT 3.15 x10e6/uL (3.6-5.1)
[2019-06-08 05:54] LABS: ALBUMIN 2.4 g/dL (3.5-5.0); ALBUMIN/GLOBULIN RATIO 0.8 (0.8-2.0); ANION GAP 12.8 mmol/L (8-16); CALCIUM 9.6 mg/dL (8.4-10.2); CREATININE, SERUM 3.6 mg/dL (0.57-1.11); POTASSIUM 4.8 mmol/L (3.5-5.1)
[2019-06-08] MEDS: MEROPENEM 500MG 500 MG in SODIUM CHLORIDE 0.9% 50ML 50 ML IV SCH (06:17)
[2019-06-08] MEDS: ASPIRIN 81 MG CHEW TAB PO SCH (06:17)
[2019-06-08] MEDS: IPRATROPIUM/ALBUTEROL SULFATE 4 GM INH INH SCH ×5 (06:18→23:40)
[2019-06-08] MEDS: SALMETEROL/FLUTICASONE 250/50 INH SCH ×2 (06:18→19:50)
[2019-06-08 06:33] LABS: CREATINE KINASE < 7 IU/L (29-168)
--- NOTE | 2019-06-08 06:41 | Diagnostic Imaging Report ---
EXAMINATION: CHEST SINGLE (PORTABLE) INDICATION: ^COUGH/PNA ^[id number] ^0525 COMPARISON: 06/07/2019 IMPRESSION: Unchanged bilateral airspace disease, left greater than right. No new lung consolidation. Unchanged small bilateral pleural effusions. No pneumothorax. Stable mildly enlarged cardiac silhouette. Unchanged pulmonary vasculature. Signed by: Polo Elizabeth MD on 06/08/2019 6:38 AM
[2019-06-08] MEDS: INSULIN REGULAR, HUMAN 100 UNIT/1 ML 3ML VIAL SQ SCH ×4 (07:30→20:11)
[2019-06-08] MEDS: SEVELAMER CARBONATE 800 MG TAB PO SCH ×3 (07:50→15:42)
[2019-06-08] MEDS: ESCITALOPRAM OXALATE 10 MG TAB PO SCH (07:50)
[2019-06-08] MEDS: CLOPIDOGREL BISULFATE 75 MG TAB PO SCH (07:50)
[2019-06-08] MEDS: CARVEDILOL 3.125 MG TAB PO SCH ×2 (07:50→19:59)
[2019-06-08] MEDS: DOCUSATE SODIUM 100 MG CAP PO SCH (07:50)
[2019-06-08] MEDS: HYDROCODONE/APAP 7.5MG-325MG 1 EA TAB PO PRN ×2 (09:50→21:30)
--- NOTE | 2019-06-08 10:50 | NUR ---
CALLED DAUGHTER SELINA ABOUT LTAC ORDER, SHE GAVE PERMISSION FOR [facility], COPIED CLINICALS AND FAXING TO REP. FOR ALF ABX.
--- NOTE | 2019-06-08 10:54 | NUR ---
INFECTIOUS DISEASE PROGRESS NOTE CC: Fever, cough ROS: Positive: productive cough, nausea Negative: diarrhea, abdominal pain, chest pain, vomiting ROS NEGATIVE PER 14 POINTS UNLESS OTHERWISE DOCUMENTED. PHYSICAL EXAM: VS: 98.7, 144/71, 82, 18 GENERAL: Afebrile, in ICU, AAOx3 HEENT: normocephalic, non-icteric CV: s1, s2 without s3, s4, regular rate and rhythm CHEST: rhonchi and decreased breath sounds ABD: soft nontender, no rebound, no guarding EXT: no edema noted, no cyanosis, pulses present NEURO: no focal abnormalities LABS: COVID pending RADIOLOGY:COMPARISON: 06/07/2019 IMPRESSION: Unchanged bilateral airspace disease, left greater than right. No new lung consolidation. Unchanged small bilateral pleural effusions. No pneumothorax. Stable mildly enlarged cardiac silhouette. Unchanged pulmonary vasculature. IMPRESSION: This is a 58 year old female with a PMH of colon cancer s/p resection 3 years ago. The patient has ESRD, and was recently hospitalized for a SBO. The patient was managed with conservative measures including NGT and IVF. The patient presented to the ED with nausea, cough. The patient reports productive cough. No complains of abdominal pain or chest pain. 1. pneumonia 2. Fever 3. ESRD on HD 4. Adrenal mass 5. Anemia 6. history of SBO PLAN: 06/08/19: COVID19 PCR-negative. HD yesterday per others, vancomycin given with HD. Continues on ordered IV ABT. Vanc after HD. Merrem QD, renal dosed. Blood cultures negative at 24 hours. Supportive care per ICU team. Overall, seems improved. 06/07/19: Pending COVID19 results pcr. Endocrine consultation for adrenal mass. MRI of the liver considered. HD scheduled per others. Vancomcyin and Merrem. RENAL DOSING.
--- NOTE | 2019-06-08 12:02 | NUR ---
SPEECH THERAPY AT BEDSIDE. SWALLOW EVAL
--- NOTE | 2019-06-08 15:57 | Progress Note ---
DATE: SUBJECTIVE: The patient is afebrile. She had dialysis today. She has less cough and less congestion. PHYSICAL EXAMINATION: VITAL SIGNS: Stable. The blood pressure is 134/71 and saturation is 94%. HEENT: Shows no facial swelling or erythema. CARDIAC: Reveals regular rate and rhythm with normal S1 and S2. LUNGS: Auscultation of lungs reveals clear breath sounds bilaterally. There is no wheezing. ABDOMEN: Soft and nontender. There is no rebound or guarding. EXTREMITIES: Shows no leg edema or calf tenderness. There is no cyanosis or clubbing. SKIN: Shows no rashes. IMPRESSION: 1. Bibasal infiltrates. 2. End-stage renal disease. 3. Anemia. 4. Hepatic abnormality. 5. Adrenal mass. PLAN: 1. Continue current antibiotics and await ID consultation. 2. Continue dialysis. 3. Laxative. 4. Out of bed as tolerated. Danilo Najera MD [facility]/EVER /[id number]
--- NOTE | 2019-06-08 19:38 | Progress Note ---
DATE: SUBJECTIVE: Ms. Jeffery is seen and examined. She is currently lying in bed comfortably in the intensive care unit. This patient is a 58-year-old, who has history of colon cancer status post resection 3 years ago, end-stage renal disease on hemodialysis. She was recently with small bowel obstruction. She does have history of COPD and coronary artery disease. The patient was admitted with shortness of breath and fever. She was diagnosed with pneumonia. Her blood cultures are negative. Her COVID-19 was negative. The patient was started on antibiotic. She is currently on meropenem and vancomycin. The patient is currently feeling better. PHYSICAL EXAMINATION: GENERAL: Alert. VITAL SIGNS: Stable, afebrile. HEENT: Not icteric. NECK: Supple. CHEST: Clear bilateral. HEART: S1 and S2. No S3, S4, or murmurs. ABDOMEN: Soft. IMPRESSION: 1. Pneumonia, present on admission. 2. Sepsis, present on admission, improving. 3. Community-acquired. 4. End-stage renal disease, on hemodialysis. 5. Anemia. 6. Adrenal mass, antibiotic while waiting for the cultures. Clinically improving. We will follow. MD JOHANNE Camilo/EVER /[id number]
[2019-06-08] MEDS: ATORVASTATIN 40 MG TAB PO SCH (19:59)
[2019-06-08] MEDS: INSULIN GLARGINE 100 UNITS/ML VIAL SQ SCH (20:11)
--- NOTE | 2019-06-08 20:12 | NUR ---
PATIENT STATES SHE DOES NOT WANT TO TAKE THE LANTUS AT NIGHT SHE TAKES IT DURING THE DAY AND IF I GIVE IT TO HER HER BS WILL DROP TOO LOW. CALLED AND LEFT [facility] FOR DR TSANG TO CHANGE LANTUS TO AM DOSE. AWAITING CALL BACK
[2019-06-09] VITALS (16 sets, daily range): BP systolic 124–167; BP diastolic 67–84
[2019-06-09] MEDS: IPRATROPIUM/ALBUTEROL SULFATE 4 GM INH INH SCH ×6 (02:50→23:40)
[2019-06-09] MEDS ORDERED: MEROPENEM 500 MG VIAL ONE (04:56)
[2019-06-09] MEDS ORDERED: SODIUM CHLORIDE 0.9% 100 ML ONE (04:56)
[2019-06-09] MEDS ORDERED: SODIUM CHLORIDE 0.9% 50ML 50 ML ONE (04:59)
[2019-06-09 05:03] LABS: BASOPHILS % 0.7 % (0.0-1.0); EOSINOPHILS # (AUTO) 0.1 (0.0-0.4); HEMATOCRIT 30.9 % (34.2-44.1); HEMOGLOBIN 9.4 g/dL (12.0-16.0); LYMPHOCYTES # (AUTO) 1.1 (1.0-3.2); LYMPHOCYTES % 18.7 % (18.0-39.1); MEAN CORPUSCULAR HEMOGLOBIN 29.9 pg (28-32); MEAN CORPUSCULAR HGB CONC 30.4 g/dL (31-35); MEAN CORPUSCULAR VOLUME 98.4 fL (81-99); MONOCYTES # (AUTO) 0.8 (0.2-0.8); MONOCYTES % 13.7 % (4.4-11.3); NEUTROPHILS # (AUTO) 3.9 (2.1-6.9); NEUTROPHILS % 64.2 % (38.7-80.0); PLATELET COUNT 391 x10e3/uL (140-360); RED BLOOD COUNT 3.14 x10e6/uL (3.6-5.1); RED CELL DISTRIBUTION WIDTH 15.6 % (11.7-14.4)
[2019-06-09] MEDS: MEROPENEM 500MG 500 MG in SODIUM CHLORIDE 0.9% 50ML 50 ML IV SCH (05:19)
[2019-06-09] MEDS: ASPIRIN 81 MG CHEW TAB PO SCH (05:20)
[2019-06-09 05:27] LABS: ANION GAP 13.8 mmol/L (8-16); CALCIUM 8.9 mg/dL (8.4-10.2); CREATININE, SERUM 4.53 mg/dL (0.57-1.11); MAGNESIUM 1.8 MG/DL (1.3-2.1); PHOSPHORUS 3.6 MG/DL (2.3-4.7); POTASSIUM 4.8 mmol/L (3.5-5.1)
[2019-06-09] MEDS: SALMETEROL/FLUTICASONE 250/50 INH SCH ×2 (07:00→19:25)
[2019-06-09] MEDS: INSULIN REGULAR, HUMAN 100 UNIT/1 ML 3ML VIAL SQ SCH ×4 (08:05→20:45)
[2019-06-09] MEDS: SEVELAMER CARBONATE 800 MG TAB PO SCH ×3 (08:12→17:41)
[2019-06-09] MEDS: CARVEDILOL 3.125 MG TAB PO SCH ×2 (09:00→20:45)
[2019-06-09] MEDS: INSULIN GLARGINE 100 UNITS/ML VIAL SQ SCH (09:00)
[2019-06-09] MEDS: HYDROCODONE/APAP 7.5MG-325MG 1 EA TAB PO PRN ×2 (13:39→17:46)
[2019-06-09] MEDS: ESCITALOPRAM OXALATE 10 MG TAB PO SCH (13:40)
[2019-06-09] MEDS: CLOPIDOGREL BISULFATE 75 MG TAB PO SCH (13:40)
[2019-06-09] MEDS: DOCUSATE SODIUM 100 MG CAP PO SCH (13:40)
--- NOTE | 2019-06-09 15:11 | Progress Note ---
DATE: SUBJECTIVE: The patient feels better. She is not having fever. She does not complain of pain. PHYSICAL EXAMINATION: VITAL SIGNS: The patient is afebrile. The blood pressure is 154/68. Saturation is 98% on 2 L. HEENT: Shows no facial swelling or erythema. CARDIAC: Reveals a regular rate and rhythm with a normal S1 and S2. There are no murmurs or rubs. LUNGS: Auscultation of lungs reveals rhonchorous breath sounds bilaterally. There is no wheezing. ABDOMEN: Soft and nontender. There is no rebound or guarding. EXTREMITIES: Shows no leg edema or calf tenderness. There is no cyanosis or clubbing. SKIN: Shows no rashes. NEUROLOGICAL: Shows no focal abnormalities. LABORATORY DATA: White blood cell count is 5.99 and hemoglobin is 9.4. The platelet count is 391. BUN to creatinine ratio is 33 to 4.53 and the glucose is 97. IMPRESSION: 1. Bibasilar infiltrates. 2. End-stage renal disease. 3. Anemia. 4. Adrenal mass. PLAN: 1. Complete antibiotics. 2. Transfer out of intensive care unit. 3. Continue dialysis. 4. Imaging of liver and adrenal gland. Danilo Najera MD [facility]/MODL /[id number]
--- NOTE | 2019-06-09 16:36 | Progress Note ---
DATE: SUBJECTIVE: Ms. Jeffery remains in intensive care unit. The patient is comfortable, afebrile. No complaints. REVIEW OF SYSTEMS: Negative. OBJECTIVE: GENERAL: Currently alert. VITAL SIGNS: Stable, afebrile. HEENT: Not icteric. NECK: Supple. CHEST: Few crackles at the bases. COR: S1 and S2. No S3, S4, or murmur. ABDOMEN: Soft. Bowel sounds present. EXTREMITIES: No edema. SKIN: No rash. ASSESSMENT: 1. Community-acquired pneumonia. 2. Adrenal mass. 3. End-stage renal disease. 4. Concerned about fluid overload. 5. Anemia, stable from Infectious Disease point of view. So far cultures are negative. Her white count is 5.99. Her COVID-19 was negative. She is currently on meropenem and vancomycin to finish in 7 days and maybe sooner if she continued to improve. MD JOHANNE Camilo/MODL /[id number]
[2019-06-09] MEDS: VANCOMYCIN 1GM/NS 250 ML 250 ML IV SCH (17:43)
[2019-06-09] MEDS: SODIUM CHLORIDE FLUSH 10 ML SYR INJ PRN (17:46)
[2019-06-09] MEDS: ATORVASTATIN 40 MG TAB PO SCH (20:45)
--- NOTE | 2019-06-09 21:55 | NUR ---
patient was moved to rm 197, she is awake alert oriented. eating snacks, tolerated well. vitals checked. call light within reach will continue to monitor.
[2019-06-10] VITALS (8 sets, daily range): BP systolic 146–183; BP diastolic 65–82
[2019-06-10] MEDS: IPRATROPIUM/ALBUTEROL SULFATE 4 GM INH INH SCH ×3 (03:10→10:43)
[2019-06-10] MEDS: HYDROCODONE/APAP 7.5MG-325MG 1 EA TAB PO PRN ×2 (03:12→08:35)
[2019-06-10] MEDS ORDERED: MEROPENEM 500MG/ NS 50ML 50 ML ONE (05:37)
[2019-06-10] MEDS: MEROPENEM 500MG 500 MG in SODIUM CHLORIDE 0.9% 50ML 50 ML IV SCH (05:38)
[2019-06-10] MEDS: ASPIRIN 81 MG CHEW TAB PO SCH (06:17)
[2019-06-10] MEDS: INSULIN REGULAR, HUMAN 100 UNIT/1 ML 3ML VIAL SQ SCH ×2 (07:30→11:30)
[2019-06-10] MEDS: SALMETEROL/FLUTICASONE 250/50 INH SCH (07:47)
[2019-06-10] MEDS: SEVELAMER CARBONATE 800 MG TAB PO SCH ×2 (08:01→12:05)
[2019-06-10] MEDS: CLOPIDOGREL BISULFATE 75 MG TAB PO SCH (08:24)
[2019-06-10] MEDS: ESCITALOPRAM OXALATE 10 MG TAB PO SCH (08:24)
[2019-06-10] MEDS: DOCUSATE SODIUM 100 MG CAP PO SCH (08:24)
[2019-06-10] MEDS: CARVEDILOL 3.125 MG TAB PO SCH (08:24)
[2019-06-10] MEDS: SODIUM CHLORIDE FLUSH 10 ML SYR INJ PRN (08:35)
[2019-06-10] MEDS: INSULIN GLARGINE 100 UNITS/ML VIAL SQ SCH (09:00)
--- NOTE | 2019-06-10 09:30 | NUR ---
Dr. Buddy Carlson rounding to see patient, made aware of high blood pressure, received orders to increase Coreg to 6.25mg to every 12 hours, and to start patient on Epogen 5,000 SQ on Hemodialysis days Friday, Friday, and Friday.
--- NOTE | 2019-06-10 10:00 | NUR ---
WOUND CARE CONSULT F/U FOR SACRAL STAGE 2 ULCERATION MEASURES 0.1CM X 2.5CM X 0.1CM 90%PINK BASE 10 % SLOUGH RECOMMENDATIONS : MAINTAIN MODERATE PUP STATUS AND VISCO MATTRESS WITH TURNING AND OFFLOADING AT LEAST EVERY2 HOURS NURSING TO CLEAN SACRAL STAGE 2 ULCERATION DAILY WITH NORMAL SALINE AND APPLY VENELEX OINTMENT AND COVER WITH ALLEVYN FOAM DRESSING Addendum: 06/10/19 at 1006 by Joseph Ross RN Amended: Links added.
[2019-06-10] MEDS ORDERED: BALSAM PERU/CASTOR OIL 60 GM OINT...G. TP SCH (11:30)
--- NOTE | 2019-06-10 11:40 | NUR ---
FAXED CLINICAL UPDATES TO [facility]
--- NOTE | 2019-06-10 12:04 | NUR ---
LONG-TERM ACUTE CARE DISCHARGE INFORMATION PATIENT HAS BEEN ACCEPTED TO: [address] [place] [address] ACCEPTING LAMINATION BUILDER: Magdi Ross, MOBILE CRANE OPERATOR ACCEPTING MD: Dr. Hernandez ROOM: [id number] NURSE CALL REPORT TO: [phone] THE FOLLOWING DOCUMENTS MUST ACCOMPANY PATIENT FOR TRANSFER: copy of chart, transfer MAR MOT INFO RECEIVED FROM: Ava Butt PHYSICIANS ORDER/RECONCILED MED LIST: to be obtained by bedside RN [id number] DNR: n/a MOT was completed and placed with pt's packet. Packet given to CHARANJIT Rios. Meng SUPERVISOR SKI PRODUCTIONmanager garage was also notified of MOT.
--- NOTE | 2019-06-10 12:35 | Progress Note ---
DATE: SUBJECTIVE: The patient is seen and evaluated. Available labs and notes reviewed. Discussed with the patient and Dr. Hayward. REVIEW OF SYSTEMS: No nausea. No vomiting. No fever. No chills. No chest pain. No shortness of breath. OBJECTIVE: VITAL SIGNS: Temperature 98.9, pulse is 91, respirations 18, and blood pressure 171/82. GENERAL: Alert and oriented. CV: S1 and S2. CHEST: Equal expansion, decreased breath sounds. No acute distress. ABDOMEN: Soft and nontender. No distention. HEENT: Moist. No pallor. No JVD. EXTREMITIES: Weak. MEDICATIONS: Medication list reviewed. As far as Infectious Disease point of view, the patient is on vancomycin on Friday, Friday, Friday, and Merrem 500 q.24 hours. LABORATORY STUDIES: No new CBC or BMP available. SEROLOGY: COVID-19 negative on PCR on 06/06. MICROBIOLOGY: Blood culture negative 72 hours from 06/06. The patient is status post swallow eval. ASSESSMENT AND PLAN: A 58-year-old female with: 1. Community-acquired pneumonia. 2. Adrenal mass. 3. End-stage renal disease. 4. Fluid overload. 5. Anemia. 6. Diabetes. 7. Debility. 8. Hyperlipidemia. Continue with vancomycin IV with dialysis and Merrem 500 mg daily, the patient is transferred out of MICU, the patient to complete a total of 7 days or maybe even less of IV antibiotics based on the patient's clinical improvement. Discussed with Dr. Hayward in detail and discussed with staff. Please refer to chart for more information. Dictated by Emanuel Stephen PA-C (Al) Ryan Hayward MD /MODL /[id number]
--- NOTE | 2019-06-10 14:43 | NUR ---
Patient discharged to [facility], via [facility], handoff report to nurse Sole DONOHUE, made aware patient Celebrex not continued by MD in med reconciliation, only reviewed, verbalized understanding.
[2019-06-10] MEDS ORDERED: CARVEDILOL 3.125 MG TAB PO SCH (21:00)
[2019-06-11] MEDS ORDERED: EPOETIN ALFA-EPBX 10,000 UNIT/ML VIAL SC SCH (16:00)
--- NOTE | 2019-06-14 11:57 | Diagnostic Imaging Report ---
PROCEDURE: X-RAY MODIFIED BARIUM SWALLOW COMPARISON: None. INDICATION: Aspiration Radiation Details: Fluoroscopy time: 2.4 minutes Cumulative dose: 10.4 mGy DISCUSSION: Fluoroscopic examination was performed in conjunction with speech pathology during swallowing a variety of thin and thick liquid consistencies. Provided images demonstrate laryngeal penetration but no aspiration. CONCLUSION: Modified barium swallow demonstrating laryngeal penetration but no aspiration. Please refer to the speech pathology report for further details. Signed by: Dimple pAple MD on 06/14/2019 11:54 AM
--- NOTE | 2019-06-29 00:47 | Discharge Summary ---
CHIEF COMPLAINT: Two-day history of progressive shortness of breath, cough, and wheezing. FINAL DIAGNOSES: Multifocal pneumonia, chronic obstructive pulmonary disease, diabetes type 2, end-stage renal disease. DISPOSITION: LTAC placement. HOSPITAL COURSE: A 58-year-old female with known history of end-stage renal disease, diabetes type 2, hypertension, COPD, coronary artery disease, and major depressive disorder. She was brought to the ER with a 2-day history of progressive shortness of breath, cough, and wheezing, not relieved with nebulizer treatments or dialysis. She was reviewed and evaluated in the emergency room. Studies were carried out. X-rays were obtained. She was found to have multifocal pneumonia and she was admitted to the facility for treatment regarding shortness of breath/cough. Findings of multifocal pneumonia, hypertension, diabetes type 2, end-stage renal disease. We will be initiating IV antibiotics, nebulizer treatments, requesting a Nephrology followup. We will monitor the patient's blood sugar. Nausea and fever were being addressed by Pulmonary Critical Care consultation, seen by Dr. Najera and with his review, his findings were subacute bibasilar infiltrates with a tree-in-bud appearance on CT scan. This may represent recurrent aspiration pneumonia. Alternative possibilities include atypical infections. Adrenal mass. Hepatic abnormality seen on CT. End-stage renal disease. Anemia. Nausea with no abdominal tenderness. History of recent small bowel obstruction. Nephrology was being managed due to the patient's chronic kidney disease stage 5, was seen by Dr. Macario. His findings were chronic kidney disease stage 5, diabetes, hypertension, multilobar pneumonia. We will be obtaining dialysis program. She is probably very fluid overloaded. The patient was placed in ICU, ADA diet, resting comfortably, in no acute distress. Antibiotic management was started. Nebulizer treatments were started. Her routine daily medications were reinitiated. She was also continuing on her insulin protocols. Lab studies were monitored closely. COVID-19 studies were pending. She underwent her dialysis procedures. She was beginning to feel better. She was showing presence of anemia. Her improvement was noted daily. Her dialysis was continuing. Currently receiving meropenem and vancomycin, and she will be requiring additional management of care. Arrangements for Case Management was setup. She will be transferred to [facility] for further treatment and she was transferred there in stable condition. Imaging; chest x-ray shows findings of multifocal pneumonia. Abdomen x-ray shows large volume of stool in the colon, suggestive of constipation. No obstruction. Followup chest x-ray shows unchanged bilateral airspace disease, left greater than right. No new lung consolidation. Finally, she underwent a modified barium swallow. Findings were demonstrating a laryngeal penetration, but no aspiration. Cultures, blood negative. CBC on the patient shows a normal white cell count of 7900, H and H were 10.4 and 33.2, and platelets stable. White cell counts remained stable throughout the stay. Final H and H were 9.4 and 30.9. COVID-19 was negative. Chemistries; initial panel, low sodium 132, potassium normal. Kidney functions; BUN 29, creatinine 4.74, glucose 184. Cardiac enzymes were normal. BNP was elevated at 2552.3. Two more sets of cardiac enzymes were normal. Blood sugars noted to be up to 349 on 06/06. On 06/08, her creatinine had risen to 4.53. Final glucose 114 at the time of transfer. As stated, she will continue to need recovery care, further managing of her condition. She was transferred to [facility]. I will continue to follow the patient's care at that location. She will continue on her current MAR sheet, current diet, continue to receive PT, continue to have respiratory rehab recovery. I will be evaluating her status daily. Adjustments will be made to her protocols as needed. Dictated by DARYN Henson Alvarez Hernandez MD CC/MODL /[id number]
== END 2019-06-10 14:45 | DRG 871 ==
LOC: ER 04:36 → ERHOLD 06:40 → ICU 09:38 → MED/SURG 17:21 → ICU 17:24 → IMCU 06-09 21:42
PROC: 5A1D70Z Performance of Urinary Filtration, Intermittent, Less than 6 Hours Per Day (ICD-10-PCS; principal; 2019-06-07)
PROC: 5A1D70Z Performance of Urinary Filtration, Intermittent, Less than 6 Hours Per Day (ICD-10-PCS; 2019-06-09)
DX: A41.9 Sepsis, unspecified organism (principal); J15.9 Unspecified bacterial pneumonia; N18.6 End stage renal disease; J69.0 Pneumonitis due to inhalation of food and vomit; I13.2 Hypertensive heart and chronic kidney disease with heart failure and with stage 5 chronic kidney disease, or end stage renal disease; E87.1 Hypo-osmolality and hyponatremia; J44.9 Chronic obstructive pulmonary disease, unspecified; Z99.2 Dependence on renal dialysis; E11.22 Type 2 diabetes mellitus with diabetic chronic kidney disease; E27.8 Other specified disorders of adrenal gland; Z86.73 Personal history of transient ischemic attack (TIA), and cerebral infarction without residual deficits; Z85.038 Personal history of other malignant neoplasm of large intestine; I25.10 Atherosclerotic heart disease of native coronary artery without angina pectoris; F32.9 Major depressive disorder, single episode, unspecified; Z87.891 Personal history of nicotine dependence; Z83.3 Family history of diabetes mellitus; Z82.49 Family history of ischemic heart disease and other diseases of the circulatory system; Z95.5 Presence of coronary angioplasty implant and graft; I50.9 Heart failure, unspecified; Z79.4 Long term (current) use of insulin; D63.1 Anemia in chronic kidney disease; E78.5 Hyperlipidemia, unspecified; R53.81 Other malaise; Z11.59 Encounter for screening for other viral diseases; K59.00 Constipation, unspecified; E11.65 Type 2 diabetes mellitus with hyperglycemia; L89.152 Pressure ulcer of sacral region, stage 2
CPT/HCPCS: 36415; 71045; 74019; 74230; 80048; 80053; 82550; 82553; 82948; 83605; 83735; 83880; 84100; 84484; 85025; 86704; 86706; 86707; 87040; 87340; 87350; 87635; 90962; 93005; 94664; 96372; 96374; 97139; 99251; 99284; J1815; J1817; J2185; J2405; J2930; J3370; J7030; J7040; J7050

== ENCOUNTER 2019-07-19 13:35 | Inpatient (IN) | payer MEDICARE, OTHER ==
[~2019-07-19] VITALS: Ht 165.1 cm; Wt 63.5 kg
--- NOTE | 2019-07-19 14:04 | Emergency Department Note ---
History of Present Illnes History of Present Illness Chief Complaint: Chest Pain History of Present Illness This is a 59 year old female . 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: See EMS Report Onset (how long ago): day(s) (today) Radiation: non-radiation, back, neck, extremity, abdomen, periumbilical, flank, proximal, distal, other Severity: moderate Onset quality: sudden Duration (how long): day(s) (today) Timing of current episode: constant Progression: worsening Context: recent illness, recent surgery, recent immobilization, recent travel, trauma/injury, new medications, hx of DVT/PE, non-compliance w/ medications, other Relieving factors: none Exacerbating factors: none Treatments prior to arrival: none Past Medical/Family History Physician Review I have reviewed the patient's past medical and family history. Any updates have been documented here. Past Medical History Recent Fever: No Clinical Suspicion of Infectio: No New/Unexplained Change in Ment: No Past Medical History: Hypertension, Diabetes, COPD, CVA, CAD, Cancer, ESRD, Hemodyalisis, Depression, Chronic Kidney Disease Other Medical History: COLON CANCER Past Surgical History: Colon Resection Other Surgery: PINS PLACED IN HIP (04/01) Social History Smoking Cessation: Never Smoker Alcohol Use: None Any Illegal Drug Use: No TB Exposure/Symptoms: No Physically hurt or threatened: No Family History Family history of heart diseas: No Other Last Tetanus: unk Any Pre-Existing Lines (PICC,: No Review of Systems Review of Systems Constitutional: no symptoms EENTM: no symptoms Cardiovascular: palpitations Respiratory: dyspnea Gastrointestinal: no symptoms Genitourinary: no symptoms Musculoskeletal: no symptoms Neurological: no symptoms Psychological: no symptoms Endocrine: no symptoms Hematological/Lymphatic: no symptoms Review of other systems All other systems reviewed and negative. Physical Exam Related Data Allergies: Coded Allergies: No Known Allergies (Unverified , 09/05/15) Triage Vital Signs Vital Signs Date Time Temp Pulse Resp B/P (MAP) Pulse Ox O2 Delivery O2 Flow Rate FiO2 07/19/19 13:48 115 22 165/80 94 Vital signs reviewed: Yes Physical Exam CONSTITUTIONAL Constitutional: well-developed, well-nourished HENT HENT: normocephalic, atraumatic, oropharynx clear/moist, nose normal HENT L/R: left ext ear normal, right ext ear normal EYES Eyes: PERRL, conjunctivae normal NECK Neck: ROM normal PULMONARY Pulmonary: effort normal, breath sounds normal, other (c/o sob noted mild tachynpnea ) CARDIOVASCULAR Cardiovascular: regular rhythm, heart sounds normal, capillary refill normal, tachycardia (115) GASTROINTESTINAL Abdominal: soft, nontender, bowel sounds normal GENITOURINARY Genitourinary: exam deferred SKIN Skin: warm, dry MUSCULOSKELETAL Musculoskeletal: ROM normal NEUROLOGICAL Neurological: alert, oriented x 3, no gross motor or sensory deficits PSYCHOLOGICAL Psychological: mood/affect normal, judgement normal Exam - additional comments pt sts was half way though dialysis today started feeling sob and 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 - Results Laboratory Laboratory Laboratory Tests Test 07/19/19 14:15 White Blood Count 7.57 x10e3/uL (4.8-10.8) Red Blood Count 2.94 x10e6/uL (3.6-5.1) Hemoglobin 8.7 g/dL (12.0-16.0) Hematocrit 28.4 % (34.2-44.1) Mean Corpuscular Volume 96.6 fL (81-99) Mean Corpuscular Hemoglobin 29.6 pg (28-32) Mean Corpuscular Hemoglobin Concent 30.6 g/dL (31-35) Red Cell Distribution Width 17.4 % (11.7-14.4) Platelet Count 341 x10e3/uL (140-360) Neutrophils (%) (Auto) 87.3 % (38.7-80.0) Lymphocytes (%) (Auto) 4.6 % (18.0-39.1) Monocytes (%) (Auto) 6.1 % (4.4-11.3) Eosinophils (%) (Auto) 1.2 % (0.0-6.0) Basophils (%) (Auto) 0.3 % (0.0-1.0) Neutrophils # (Auto) 6.6 (2.1-6.9) Lymphocytes # (Auto) 0.4 (1.0-3.2) Monocytes # (Auto) 0.5 (0.2-0.8) Eosinophils # (Auto) 0.1 (0.0-0.4) Basophils # (Auto) 0.0 (0.0-0.1) Absolute Immature Granulocyte (auto 0.04 x10e3/uL (0-0.1) Prothrombin Time 13.8 seconds (11.9-14.5) Prothromb Time International Ratio 1.00 Activated Partial Thromboplast Time 45.5 seconds (23.8-35.5) Sodium Level 138 mmol/L (136-145) Potassium Level 4.1 mmol/L (3.5-5.1) Chloride Level 98 mmol/L (98-107) Carbon Dioxide Level 24 mmol/L (22-29) Anion Gap 20.1 mmol/L (8-16) Blood Urea Nitrogen 34 mg/dL (7-26) Creatinine 3.80 mg/dL (0.57-1.11) Estimat Glomerular Filtration Rate 12 ML/MIN (60-) BUN/Creatinine Ratio 9 (6-25) Glucose Level 277 mg/dL (74-118) Calcium Level 9.3 mg/dL (8.4-10.2) Magnesium Level 1.9 MG/DL (1.3-2.1) Total Bilirubin 0.8 mg/dL (0.2-1.2) Aspartate Amino Transf (AST/SGOT) 10 IU/L (5-34) Alanine Aminotransferase (ALT/SGPT) 13 IU/L (0-55) Alkaline Phosphatase 103 IU/L (40-150) Creatine Kinase 13 IU/L (29-168) Creatine Kinase MB 1.20 ng/mL (0-5.0) Troponin I 0.038 ng/mL (0-0.300) Total Protein 6.6 g/dL (6.5-8.1) Albumin 2.9 g/dL (3.5-5.0) Globulin 3.7 g/dL (2.3-3.5) Albumin/Globulin Ratio 0.8 (0.8-2.0) Thyroid Stimulating Hormone (TSH) 0.746 uIU/mL (0.350-4.940) Lab results reviewed: Yes Imaging Impressions EXAM: CHEST SINGLE (PORTABLE) DATE: 07/19/2019 2:07 PM INDICATION: Chest pain, shortness of breath COMPARISON: 06/08/2019 FINDINGS/IMPRESSION: There are increased interstitial markings present bilaterally as well as prominence of the central pulmonary vasculature which can be seen in the setting of edema. There is no evidence for large focal consolidation or pneumothorax. There is blunting of the costophrenic angles and trace effusions are possible. The cardiac silhouette remains enlarged. No acute osseous abnormality is identified. Signed by: Dr. Clayton Calles MD on 07/19/2019 2:25 PM Dictated By: CLAYTON CALLES MD 142 Transcribed By: FRANCISCO J on 07/19/19 142 Procedures 12 Lead ECG Interpretation Health Program Director: Interpreted by ED physician Date: Jul 19, 2019 Time: 14:02 Prior CONSTRUCTION RECRUITER tracings: reviewed Rhythm: sinus tachycardia Ectopy: frequent PVC's Rate: tachycardia BPM: 116 QRS axis: normal Other findings: prolonged QTc interval Critical Care Time Subsequent provider I assumed direction of critical care for this patient from another provider of my specialty. 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 was half way through dialysis - noted mild tachypnea c/o feeling sob - pt awake lert oriented x 3 denies cp n/v barrera at this time - lab ekg cxr ct chest ordered Assessment & Plan Final Impression: (1) Chest pain (2) Dyspnea Assessment & Plan discussed lab ekg cxr results plan of care and need for admit spoke w/ Dr Wlila Hernandez will admit Depart Disposition: ADMITTED Last Vital Signs Date Time Temp Pulse Resp B/P (MAP) Pulse Ox O2 Delivery O2 Flow Rate FiO2 07/19/19 13:48 115 22 165/80 94 Home Meds Reported Medications [Duoneb] No Conflict Check, 3 ML INH Q6H for COPD 05/13/19 Hydrocodone Bit/Acetaminophen (NORCO 7.5-325 TABLET) 1 Each Tablet, 1 EA PO Q4HR PRN for Mild Pain (1-3) or Fever>100.8, TAB 05/13/19 Ondansetron Hcl* (ZOFRAN*) 4 Mg Tablet, 4 MG PO Q4HR PRN for NAUSEA AND VOMITING 05/13/19 Clopidogrel Bisulfate* (PLAVIX) 75 Mg Tablet, 75 MG PO DAILY for 28 Days, #30 TAB 05/13/19 Aspirin (ASPIR 81) 81 Mg Tablet., 81 MG PO DAILY@0600 05/13/19 Insulin Glargine (LANTUS 3ML PEN) 100 Units/1 Ml Inj, 10 UNITS SQ DAILY Nurse called Dr. Trini Hernandez to notify him of patient's hypoglycemia recived orders to decrease lantus to 10 units daily 05/13/19 Carvedilol (COREG) 3.125 Mg Tab, 6.25 MG PO Q12H 05/13/19 Sevelamer Hcl (RENAGEL) 800 Mg Tablet, 800 MG PO TID 10/27/18 [Trelegy] No Conflict Check, 1 INH INH DAILY 10/27/18 Atorvastatin Calcium (ATORVASTATIN CALCIUM) 20 Mg Tablet, 40 MG PO HS, #30 TAB 03/23/18 Escitalopram Oxalate (LEXAPRO) 20 Mg Tablet, 20 MG PO DAILY 03/31/17 FAZAL CANO Jul 19, 2019 14:04
--- NOTE | 2019-07-19 14:29 | Diagnostic Imaging Report ---
EXAM: CHEST SINGLE (PORTABLE) DATE: 07/19/2019 2:07 PM INDICATION: Chest pain, shortness of breath COMPARISON: 06/08/2019 FINDINGS/IMPRESSION: There are increased interstitial markings present bilaterally as well as prominence of the central pulmonary vasculature which can be seen in the setting of edema. There is no evidence for large focal consolidation or pneumothorax. There is blunting of the costophrenic angles and trace effusions are possible. The cardiac silhouette remains enlarged. No acute osseous abnormality is identified. Signed by: Dr. Clayton Calles MD on 07/19/2019 2:25 PM
[2019-07-19 15:08] LABS: BASOPHILS % 0.3 % (0.0-1.0); EOSINOPHILS # (AUTO) 0.1 (0.0-0.4); EOSINOPHILS % 1.2 % (0.0-6.0); HEMATOCRIT 28.4 % (34.2-44.1); HEMOGLOBIN 8.7 g/dL (12.0-16.0); LYMPHOCYTES # (AUTO) 0.4 (1.0-3.2); LYMPHOCYTES % 4.6 % (18.0-39.1); MEAN CORPUSCULAR HEMOGLOBIN 29.6 pg (28-32); MEAN CORPUSCULAR HGB CONC 30.6 g/dL (31-35); MEAN CORPUSCULAR VOLUME 96.6 fL (81-99); MONOCYTES # (AUTO) 0.5 (0.2-0.8); MONOCYTES % 6.1 % (4.4-11.3); NEUTROPHILS # (AUTO) 6.6 (2.1-6.9); NEUTROPHILS % 87.3 % (38.7-80.0); PLATELET COUNT 341 x10e3/uL (140-360); RED BLOOD COUNT 2.94 x10e6/uL (3.6-5.1); RED CELL DISTRIBUTION WIDTH 17.4 % (11.7-14.4)
--- NOTE | 2019-07-19 15:08 | NUR ---
dc'd dialysis access.
[2019-07-19 15:17] LABS: PROTHROMBIN TIME 13.8 seconds (11.9-14.5)
[2019-07-19 15:18] LABS: PARTIAL THROMBOPLASTIN TIME 45.5 seconds (23.8-35.5)
[2019-07-19 15:24] LABS: ALBUMIN 2.9 g/dL (3.5-5.0); ALBUMIN/GLOBULIN RATIO 0.8 (0.8-2.0); ANION GAP 20.1 mmol/L (8-16); CALCIUM 9.3 mg/dL (8.4-10.2); CREATININE, SERUM 3.8 mg/dL (0.57-1.11); MAGNESIUM 1.9 MG/DL (1.3-2.1); POTASSIUM 4.1 mmol/L (3.5-5.1)
[2019-07-19 15:46] LABS: CREATINE KINASE MB 1.2 ng/mL (0-5.0); THYROID STIMULATING HORMONE 0.746 uIU/mL (0.350-4.940)
[2019-07-19] MEDS: INSULIN REGULAR, HUMAN 100 UNIT/1 ML 3ML VIAL SQ SCH ×2 (16:30→22:47)
[2019-07-19] MEDS ORDERED: ASPIRIN 81 MG CHEW TAB PO ONE (16:30)
[2019-07-19] MEDS ORDERED: SODIUM CHLORIDE FLUSH 10 ML SYR INJ PRN (16:30)
[2019-07-19] MEDS ORDERED: DEXTROSE 50% SYRINGE 50 ML IV PRN (16:30)
[2019-07-19] MEDS ORDERED: NITROGLYCERIN 0.4 MG SUBL SL PRN (16:30)
[2019-07-19] MEDS ORDERED: ONDANSETRON HCL INJ 2MG/ML 2ML 2 MG/ML VIAL IV PRN (16:30)
[2019-07-19] MEDS ORDERED: FAMOTIDINE 20 MG/2 ML VIAL IV SCH (17:00)
--- NOTE | 2019-07-19 18:03 | Diagnostic Imaging Report ---
EXAM: CT Chest WITH contrast 07/19/2019 5:27 PM INDICATION: Chest pain, shortness of breath COMPARISON: Chest CT, 05/10/2019 TECHNIQUE: Chest was scanned utilizing a multidetector helical scanner from the lung apex through the level of the diaphragm after administration of IV contrast. Thin section reconstructions were obtained with special concentration on the pulmonary arteries. Coronal and sagittal reformations were obtained. Pulmonary embolism protocol was performed. Dose modulation, iterative reconstruction, and/or weight based adjustment of the mA/kV was utilized to reduce the radiation dose to as low as reasonably achievable IV CONTRAST: 100 cc Isovue-370 RADIATION DOSE: Total DLP: 522.79 mGy*cm Estimated effective dose: (DLP x 0.014 x size factor) mSv COMPLICATIONS: None FINDINGS: LINES/ TUBES: None. LUNGS AND AIRWAYS: No filling defect is identified within the pulmonary arteries to the segmental level. There is generalized groundglass opacity throughout the upper and lower lobes with peripheral consolidations in the left upper lobe and atelectasis in both lower lobes. There is dependent septal thickening in the posterior lower lobes. There is debris within the trachea, likely representing mucus debris although aspiration is also possible. PLEURA: Small bilateral pleural effusions have developed since the previous exam. HEART AND MEDIASTINUM: The thyroid gland is normal. Mediastinal adenopathy is developed since the previous exam, including prevascular nodes measuring 1.1 cm (series 2, image 31, image 29) and a lower left paratracheal node measuring 2.0 cm (image 38) and right paratracheal node measuring 1.4 cm (image 39). Hilar adenopathy is also present. The heart is moderately enlarged. There is trace pericardial effusion.. The thoracic aorta is atherosclerotic with scattered calcified plaque. Ascending aorta measures 3.3 cm, normal. Main pulmonary artery measures 3.5 cm, dilated. UPPER ABDOMEN: Included portions of the liver appear unremarkable. The mass previously noted in the inferior aspect of the right lobe of the liver is not included on the current exam. Spleen and pancreas show no focal abnormality. The previously noted 5.2 cm left adrenal mass is again seen but not well evaluated on this single phase exam. BONES: No acute or suspicious bony lesions. SOFT TISSUES: Superficial surrounding soft tissue shows an apparent 3.2 cm right breast mass (image 53). IMPRESSION: 1. Development of groundglass opacity, likely edema although infection is possible, throughout both lungs associated with small bilateral pleural effusions and peripheral atelectasis at the lung bases, in the right middle lobe and in the lingula. 2. No CT evidence for acute pulmonary embolism. The main pulmonary arteries dilated which may be seen with pulmonary hypertension. 3. Development of extensive mediastinal adenopathy which may be related to infection or neoplasm. 4. Again noted is a large left adrenal mass measuring 5.2 cm, of indeterminate significance. 5. Suspected 3.2 cm right breast mass. Correlation with mammography is recommended if not recently performed. 6. Extensive coronary artery calcification is seen. Staff: [place] Signed by: Dr. Juan Elaine M.D. on 07/19/2019 6:00 PM
[2019-07-19] MEDS ORDERED: SODIUM CHLORIDE 0.9% 50ML 50 ML ONE (18:13)
[2019-07-19] MEDS ORDERED: IOPAMIDOL 370 MG/ML 200 ML INFUS..BTL INJ ONE (18:13)
[2019-07-19 19:30] VITALS: BP 161/77
--- OUTSIDE RECORDS SUMMARY | 2019-07-19 19:30 | XMS REPORT | Clinical Summary ---
Author Author [facility] Organization [employer] Address Unknown Phone Unavailable Care Team Providers Care A And P Technician Name Role Phone Asked, No Pcp PCP [...] 2010 SHINGLES VACCINES (#1) 2010 INFLUENZA VACCINE 09/11/2019 Results Not on fileafter 07/18/2018 Insurance Type Payer Benefit Subscriber ID Effective Phone Address Plan / Dates Group Medicare MEDICARE MEDICARE xxxxxxxxxx [id number] DENY, PART A AND jessi [place] B Advance Directives For more information, please contact: [phone] Patient Powderer Explanation Type Date Recorded Advance Directives, Living Will and Medical Power of Horse Farm Manager
--- OUTSIDE RECORDS SUMMARY | 2019-07-19 19:31 | XMS REPORT | Continuity of Care Document ---
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 Item Value Reference Range Interpretation Comments Urine Bilirubin (test code = 1978-6) SMALL NEGATIVE [facility] Hyzyh4239-69-89 09:39:00* Test Item Value Reference Range Interpretation Comments Urine Blood (test code = 08685-6) 3+ NEGATIVE [facility] CenterVitamin B12 Appsd0535-68-93 07:16:00* Test Item Value Reference Range Interpretation Comments Vitamin B12 Level (test code = 55859-0) 693 213-816 [facility] CenterFerritin2020-04-02 06:57:00* Test Item Value Reference Range Interpretation Comments Ferritin (test code = 2276-4) 1229.47 4.63-204.00 H [facility] CenterIron Mofht1897-90-35 06:39:00* Test Item Value Reference Range Interpretation Comments Iron Level (test code = 2498-4) 39 50-170 L [facility] CenterTotal Iron Binding Hsngvyan1163-18-08 06:39:00* Test Item Value Reference Range Interpretation Comments Total Iron Binding Capacity (test code = 2500-7) 186 261-4 78 L [facility] CenterPercent Iron Wzbdculwyt7234-45-75 06:39:00* Test Item Value Reference Range Interpretation Comments Percent Iron Saturation (test code = 2502-3) 21 15-50 [facility] CenterTransferrin2020-04-02 06:39:00* Test Item Value Reference Range Interpretation Comments Transferrin (test code = 3034-6) 133 180-382 L [facility] CenterPhosphorus Tcooq8134-77-40 06:32:00* Test Item Value Reference Range Interpretation Comments Phosphorus Level (test code = YZL8852) 3.2 2.3-4.7 [facility]odium Pdxzg8205-98-77 06:21:00* Test Item Value Reference Range Interpretation Comments Sodium Level (test code = 2951-2) 136 136-145 [facility] CenterPotassium Qahiw3907-08-25 06:21:00* Test Item Value Reference Range Interpretation Comments Potassium Level (test code = 2823-3) 4.2 3.5-5.1 [facility] CenterChloride Daiml6719-11-73 06:21:00* Test Item Value Reference Range Interpretation Comments Chloride Level (test code = 2075-0) 99 98-107 [facility] CenterCarbon Dioxide Slmtf8038-43-81 06:21:00* Test Item Value Reference Range Interpretation Comments Carbon Dioxide Level (test code = 2028-9) 29 22-29 [facility] CenterAnion Niu4732-04-01 06:21:00* Test Item Value Reference Range Interpretation Comments Anion Gap (test code = 57964-3) 12.2 8-16 [facility] CenterBlood Urea Xgqmrtac2172-48-71 06:21:00* Test Item Value Reference Range Interpretation Comments Blood Urea Nitrogen (test code = 3094-0) 14 7-26 [facility] CenterCreatinine2020-04-02 06:21:00* Test Item Value Reference Range Interpretation Comments Creatinine (test code = 2160-0) 3.47 0.57-1.11 H [facility] CenterBUN/Creatinine Itftv1870-35-54 06:21:00* Test Item Value Reference Range Interpretation Comments BUN/Creatinine Ratio (test code = 3097-3) 4 6-25 L [facility] CenterEstimat Glomerular Filtration Rate 2019-05-13 06:21:00* Test Item Value Reference Range Interpretation Comments Estimat Glomerular Filtration Rate (test code = 354232772) 14 >60 L Ranges were taken from the National Kidney Disease Education Program and the [facility] literature.Reference ranges:60 or greater: Bxfxgc07-84 ( for 3 consecutive months): Chronic kidney disease 15 or less: Kidney failureMethodist Richardson Medical CenterGlucose Phumu0291-35-59 06:21:00* Test Item Value Reference Range Interpretation Comments Glucose Level (test code = AZM0223) 104 74-118 [facility] CenterCalcium Gdhxw8772-61-35 06:21:00* Test Item Value Reference Range Interpretation Comments Calcium Level (test code = 89998-6) 8.1 8.4-10.2 L [facility] CenterTotal Wunmiudpj4854-64-63 06:21:00* Test Item Value Reference Range Interpretation Comments Total Bilirubin (test code = 1975-2) 0.6 0.2-1.2 [facility] CenterAspartate Amino Transf (AST/SGOT) 2019-05-13 06:21:00* Test Item Value Reference Range Interpretation Comments Aspartate Amino Transf (AST/SGOT) (test code = Aspartate Amino Transf (AST/SGOT)) 8 5-34 [facility] CenterAlanine Aminotransferase (ALT/SGPT) 2019-05-13 06:21:00* Test Item Value Reference Range Interpretation Comments Alanine Aminotransferase (ALT/SGPT) (test code = 1742-6) < 6 0-55 [facility] CenterTotal Xbievnt1678-36-78 06:21:00* Test Item Value Reference Range Interpretation Comments Total Protein (test code = 2885-2) 5.2 6.5-8.1 L [facility] CenterAlbumin2020-04-02 06:21:00* Test Item Value Reference Range Interpretation Comments Albumin (test code = 1751-7) 2.6 3.5-5.0 L [facility] CenterGlobulin2020-04-02 06:21:00* Test Item Value Reference Range Interpretation Comments Globulin (test code = 51032-6) 2.6 2.3-3.5 [facility] CenterAlbumin/Globulin Jlxuc7468-53-77 06:21:00 * Test Item Value Reference Range Interpretation Comments Albumin/Globulin Ratio (test code = 1759-0) 1.0 0.8-2.0 [facility] CenterAlkaline Uxzntxbzhvi2550-78-51 06:21:00* Test Item Value Reference Range Interpretation Comments Alkaline Phosphatase (test code = 6768-6) 75 40-150 [facility] CenterWhite Blood Incsw3192-17-71 06:15:00* Test Item Value Reference Range Interpretation Comments White Blood Count (test code = 6690-2) 5.17 4.8-10.8 [facility] CenterRed Blood Pgrlb5432-74-72 06:15:00* Test Item Value Reference Range Interpretation Comments Red Blood Count (test code = 789-8) 2.71 3.6-5.1 L [facility] CenterHemoglobin2020-04-02 06:15:00* Test Item Value Reference Range Interpretation Comments Hemoglobin (test code = 66818-8) 8.6 12.0-16.0 L [facility] CenterHematocrit2020-04-02 06:15:00* Test Item Value Reference Range Interpretation Comments Hematocrit (test code = 4544-3) 29.4 34.2-44.1 L [facility] CenterMean Corpuscular Rymktn6547-74-14 06:15:00* Test Item Value Reference Range Interpretation Comments Mean Corpuscular Volume (test code = 787-2) 108.5 81-99 H [facility] CenterMean Corpuscular Bxijddfznt0505-15-92 06:15:00* Test Item Value Reference Range Interpretation Comments Mean Corpuscular Hemoglobin (test code = 785-6) 31.7 28-32 [facility] CenterMean Corpuscular Hemoglobin Concent 2019-05-13 06:15:00* Test Item Value Reference Range Interpretation Comments Mean Corpuscular Hemoglobin Concent (test code = 786-4) 29.3 31-35 L [facility] CenterRed Cell Distribution Kvnpj5732-14-92 06:15:00* Test Item Value Reference Range Interpretation Comments Red Cell Distribution Width (test code = 57054-2) 17.2 11.7 -14.4 H [facility] CenterPlatelet Gfnmz4648-70-12 06:15:00* Test Item Value Reference Range Interpretation Comments Platelet Count (test code = 777-3) 308 140-360 [facility] CenterNeutrophils (%) (Auto)2019-05-13 06:15:00 * Test Item Value Reference Range Interpretation Comments Neutrophils (%) (Auto) (test code = 35237-7) 60.3 38.7-80.0 [facility] CenterLymphocytes (%) (Auto)2019-05-13 06:15:00 * Test Item Value Reference Range Interpretation Comments Lymphocytes (%) (Auto) (test code = 736-9) 17.0 18.0-39.1 L [facility] CenterMonocytes (%) (Auto)2019-05-13 06:15:00* Test Item Value Reference Range Interpretation Comments Monocytes (%) (Auto) (test code = 5905-5) 19.0 4.4-11.3 H [facility] CenterEosinophils (%) (Auto)2019-05-13 06:15:00 * Test Item Value Reference Range Interpretation Comments Eosinophils (%) (Auto) (test code = 713-8) 2.9 0.0-6.0 [facility] CenterBasophils (%) (Auto)2019-05-13 06:15:00* Test Item Value Reference Range Interpretation Comments Basophils (%) (Auto) (test code = 706-2) 0.4 0.0-1.0 [facility] CenterIM GRANULOCYTES %2019-05-13 06:15:00* Test Item Value Reference Range Interpretation Comments IM GRANULOCYTES % (test code = IM GRANULOCYTES %) 0.4 0.0- 1.0 [facility] CenterNeutrophils # (Auto)2019-05-13 06:15:00* Test Item Value Reference Range Interpretation Comments Neutrophils # (Auto) (test code = 751-8) 3.1 2.1-6.9 [facility] CenterLymphocytes # (Auto)2019-05-13 06:15:00* Test Item Value Reference Range Interpretation Comments Lymphocytes # (Auto) (test code = 19606-4) 0.9 1.0-3.2 L [facility] CenterMonocytes # (Auto)2019-05-13 06:15:00* Test Item Value Reference Range Interpretation Comments Monocytes # (Auto) (test code = 742-7) 1.0 0.2-0.8 H [facility] CenterEosinophils # (Auto)2019-05-13 06:15:00* Test Item Value Reference Range Interpretation Comments Eosinophils # (Auto) (test code = 711-2) 0.2 0.0-0.4 [facility] CenterBasophils # (Auto)2019-05-13 06:15:00* Test Item Value Reference Range Interpretation Comments Basophils # (Auto) (test code = 704-7) 0.0 0.0-0.1 [facility] CenterAbsolute Immature Granulocyte (auto 2019-05-13 06:15:00* Test Item Value Reference Range Interpretation Comments Absolute Immature Granulocyte (auto (carine t code = Absolute Immature Granulocyte (auto) 0.02 0-0.1 [facility] CenterPercent Reticulocyte Hhcwz9567-54-22 06:14:00* Test Item Value Reference Range Interpretation Comments Percent Reticulocyte Count (test code = 72917-9) 7.9 0.8-2 .2 H [facility] CenterHepatitis B Surface Nigdydd9767-88-75 08:55:00* Test Item Value Reference Range Interpretation Comments Hepatitis B Surface Antigen (test code = 5196-1) Negative Negat henry Performed at: - [facility] [id number] Director: Edmond Mcneil MD, Phone: [phone] Richardson Medical CenterABDOMEN-1VIEW (KUB)2019-05-11 06:38:00 [place] [address] Patient Name: YARITZA JOSEPH MR #: [id number] : 1960 Age/Sex: 58/F Req #: [id number] [facility] Physician: BRENDAN TSANG MD Ordered by: LARRY TSANG MD Report #: [id number] Location: MED/SURG2 Room/Bed: [facility] [place] Procedure: [id number] DX/ABDOMEN-1VIEW (KUB) Exam Date: 05/11/19 Exam Donald e: 0610 REPORT STATUS: Signed Ab domen/CARLOS INDICATION: sbo [id number] COMPARISON: CT ches t, abdomen, pelvis 05/10/2019. FINDINGS: Portable, supine image obtained at 0617 hours. Medical Devices: Cancellous screws in the proximal left femu r are stable. Enteric tube is looped in the inferior left chest and does not e xtend past the diaphragm. Bowel: Multiple dilated small bowel loops measu re up to 4.9 cm. There is no air in the large bowel. There is formed stool in the right colon adjacent to sutures. Free air: None Abdominal calci fications: None Organomegaly: Normal. Excreted contrast in the urinary bladder. Bones: Stable IMPRESSION: Multiple dilated small bowel loops consistent with obstruction. Enteric tube is looped in the distal ed[address]. Recommend removal and reinsertion. Signed by: Dr. Rosie De Jesus MD on 05/11/2019 6:43 AM Dictated By: ROSIE DE JESUS MD Electronically S igned By: ROSIE DE JESUS MD on 05/11/19642 Transcribed By: FRANCISCO J on 04/12 COPY TO: LARRY TSANG MD Prothrombin Rqnl8662-26-49 06:13:00* Test Item Value Reference Range Interpretation Comments Prothrombin Time (test code = 5902-2) 14.8 11.9-14.5 H [facility] CenterProthromb Time International Ratio 2019-05-11 06:13:00* Test Item Value Reference Range Interpretation Comments Prothromb Time International Ratio (test code = 6301-6) 1.09 Oral Anticoagulant Therapy INR Values:1. Low Intensity Therapy 1.5 - 2.02 . Moderate Intensity Therapy 2.0 - 3.03. High Intensity Therapy(1) 2.5 - 3. 54. High Intensity Therapy(2) 3.0 - 4.05. Panic Value INR > 5.0 [facility] CenterCT CHEST J6463-67-72 10:37:00 [place] [address] Patient Name: YARITZA JOSEPH MR #: [id number] : 1960 Age/Sex: 58/F Req #: [id number] Adm Physician: BRENDAN TSANG MD Ordered by: SRIRAM HIDALGO DO Report #: [id number] Location: [facility] Room/Bed: [facility]- Procedure: [id number] C T/CT CHEST W Exam Date: 05/10/19 Exam Time: 919 REPORT STATUS: Signed EXAM: CT Ches t, Abdomen and Pelvis WITH intravenous contrast INDICATION: Bowel obstruc tion, pneumonia COMPARISON: CT abdomen and pelvis of 05/10/2019, chest radi ograph of 05/10/2019 TECHNIQUE: The chest, abdomen and pelvis were scanned u tilizing a multidetector helical scanner from the thoracic inlet to the pubic symphysis following administration of IV contrast. Coronal and sagittal reform ations were obtained. Scan was performed during portal venous phase. IV CONTRAST: 100cc Isovue 370 ORAL CONTRAST: Water COMPLICA TIONS: None RADIATION DOSE: Total DLP: 840 mGy*cm Dose modulation, iterative reconstruction, and/or weight based adjustment of the mA/kV was util ized to reduce the radiation dose to as low as reasonably achievable. FI NDINGS: LINES/ TUBES: NG tube terminates in the stomach. LUNGS AND AIRWAY S: The central airways are patent. Bibasilar dependent subsegmental atelectas is. Scattered groundglass and tree-in-bud opacities involve the dependent port ions of the right lower lobe and right middle lobe. PLEURA: The pleural s paces are clear. HEART AND MEDIASTINUM: The thyroid gland is normal. No me diastinal, hilar or axillary lymphadenopathy. Multichamber cardiomegaly. Athe rosclerotic calcifications involve the coronary arteries, aorta, and proximal great vessels.. There is no pericardial effusion. No central pulmonary emboli sm. HEPATOBILIARY: There is a 4.9 cm mass in segment 6 of the liver (series 2 image 73). No biliary ductal dilation. Unremarkable gallbladder. SPLEE N: No splenomegaly. PANCREAS: No focal masses or ductal dilatation. AD RENALS: 5.0 cm left adrenal mass contains both cystic and solid components. KI DNEYS/URETERS: No hydronephrosis or renal calculi. Unchanged bilateral renal c ysts. PELVIC ORGANS/BLADDER: Unremarkable. PERITONEUM / RETROPERITONEUM: Small volume ascites in the pelvis, new compared to the prior CT of 05/10/2019 LYMPH NODES: No lymphadenopathy. VESSELS: Atherosclerotic calcifications of the nonaneurysmal abdominal aorta and major branches. GI TRACT: Essential ly unchanged appearance of numerous dilated loops of small bowel with air-flui d levels consistent with small bowel obstruction. Transition point appears to be in the right lower quadrant (series 2 image 96. Possible additional transit ion point at the right hemicolectomy anastomosis. Unchanged circumferential re ctal wall thickening. BONES AND SOFT TISSUES: No acute osseous injury. IMPRESSION: Unchanged appearance of high-grade small bowel obstruction with at least one transition point in the right lower quadrant. New small volume as cites in the pelvis. No free air. Groundglass and tree-in-bud opacities a t the dependent portions of the right lower lobe and right middle lobe are com patible with aspiration and/or pneumonia in the proper clinical setting. 4.9 cm segment 6 right hepatic mass is indeterminate on this single phase cont rast enhanced CT. Recommend liver MRI with and without contrast for further ev aluation. 5.0 cm left adrenal mass contains both cystic and solid component s. Adrenal mass protocol CT or MRI recommended for further evaluation. Un changed circumferential rectal wall thickening can be seen with proctitis. The above findings were discussed with Dr. Kelley on 05/10/2019 11:15 AM, who responded indicating that the communication was understood. Signed by: Varghese Mahajan MD on 05/10/2019 11:15 AM Dictated By: VARGHESE MAHAJAN MD Electron ically Signed By: VARGHESE MAHAJAN MD on 05/10/19 1115 Transcribed By: FRANCISCO J on 1115 COPY TO: SRIRAM HIDALGO DO CT ABDOMEN/PELVIS W 2019-05-10 10:37:00 [place] [address] Patient Name: YARITZA JOSEPH MR #: [id number] : 1960 Age/Sex: 58/F Req #: [id number] Adm Physician: BRENDAN TSANG MD Ordered by: SRIRAM HIDALGO DO Report #: [id number] Location: [facility] Room/Bed: [place] [address] Procedure: [id number] C T/CT ABDOMEN/PELVIS W Exam Date: 05/10/19 Exam Time: 919 REPORT STATUS: Signed EXAM: CT Chest, Abdomen and Pelvis WITH intravenous contrast INDICATION: Bowel obstruction, pneumonia COMPARISON: CT abdomen and pelvis of 05/10/2019, c hest radiograph of 05/10/2019 TECHNIQUE: The chest, abdomen and pelvis were scanned utilizing a multidetector helical scanner from the thoracic inlet to t he pubic symphysis following administration of IV contrast. Coronal and sagitt al reformations were obtained. Scan was performed during portal venous phase. IV CONTRAST: 100cc Isovue 370 ORAL CONTRAST: Water COMPLICATIONS: None RADIATION DOSE: Total DLP: 840 mGy*cm Dose mod ulation, iterative reconstruction, and/or weight based adjustment of the mA/kV was utilized to reduce the radiation dose to as low as reasonably achievable. FINDINGS: LINES/ TUBES: NG tube terminates in the stomach. LUNGS AND AIRWAYS: The central airways are patent. Bibasilar dependent subsegmental atelectasis. Scattered groundglass and tree-in-bud opacities involve the depen dent portions of the right lower lobe and right middle lobe. PLEURA: The pleural spaces are clear. HEART AND MEDIASTINUM: The thyroid gland is chay l. No mediastinal, hilar or axillary lymphadenopathy. Multichamber cardiomeg sarah. Atherosclerotic calcifications involve the coronary arteries, aorta, and proximal great vessels.. There is no pericardial effusion. No central pulmona ry embolism. HEPATOBILIARY: There is a 4.9 cm mass in segment 6 of the live r (series 2 image 73). No biliary ductal dilation. Unremarkable gallbladder. SPLEEN: No splenomegaly. PANCREAS: No focal masses or ductal dilatation. ADRENALS: 5.0 cm left adrenal mass contains both cystic and solid compone nts. KIDNEYS/URETERS: No hydronephrosis or renal calculi. Unchanged bilateral renal cysts. PELVIC ORGANS/BLADDER: Unremarkable. PERITONEUM / RETROPER ITONEUM: Small volume ascites in the pelvis, new compared to the prior CT of LYMPH NODES: No lymphadenopathy. VESSELS: Atherosclerotic calcifica tions of the nonaneurysmal abdominal aorta and major branches. GI TRACT: Essentially unchanged appearance of numerous dilated loops of small bowel with air-fluid levels consistent with small bowel obstruction. Transition point ap pears to be in the right lower quadrant (series 2 image 96. Possible additiona l transition point at the right hemicolectomy anastomosis. Unchanged circumfer ential rectal wall thickening. BONES AND SOFT TISSUES: No acute osseous inj ury. IMPRESSION: Unchanged appearance of high-grade small bowel obstruct ion with at least one transition point in the right lower quadrant. New small volume ascites in the pelvis. No free air. Groundglass and tree-in-bud op acities at the dependent portions of the right lower lobe and right middle lob e are compatible with aspiration and/or pneumonia in the proper clinical setti ng. 4.9 cm segment 6 right hepatic mass is indeterminate on this single pha se contrast enhanced CT. Recommend liver MRI with and without contrast for fur ther evaluation. 5.0 cm left adrenal mass contains both cystic and solid components. Adrenal mass protocol CT or MRI recommended for further evaluation . Unchanged circumferential rectal wall thickening can be seen with proctit is. The above findings were discussed with Dr. Kelley on 05/10/2019 11:15 AM, who responded indicating that the communication was understood. Si gned by: Varghese Mahajan MD on 05/10/2019 11:15 AM Dictated By: VARGHESE MAHAJAN MD 1115 Transcribed By: ALEX HO on 05/10/19 1115 COPY TO: SRIRAM HIDALGO DO CHEST 2 VIEWS 2019-05-10 07:23:00 [place] [address] Patient Name: YARITZA JOSEPH MR #: [id number] : 1960 Age/Sex: 58/F Req #: [id number] Adm Physician: Ordered by: SRIRAM HIDALGO DO Report #: [id number] Location: ER Room/Bed: Procedure: [id number] DX/ CHEST 2 VIEWS Exam Date: 05/10/19 Exam Time: 624 REPORT STATUS: Signed EXAMINATION: CHEST 2 VIEWS INDICATION: Nausea COMPARISON: Same day abdominal CT, chest x-ray 04/25/2019 FINDINGS: TUBES and LINES: None. LUNGS: Normal lung volumes. Hazy opacities in the lung bases. P LEURA: No pleural effusion or pneumothorax. HEART AND MEDIASTINUM: Mi ld cardiomegaly. Left Coronary stent. BONES AND SOFT TISSUES: No acute oss eous lesion. Soft tissues are unremarkable. UPPER ABDOMEN: Multiple dila sunil air and fluid-filled loops of small bowel IMPRESSION: Mild cardi omegaly. Hazy opacities in the lung bases concerning for pneumonia. Fi ndings a small bowel obstruction. Signed by: Dakotah Souza DO on 2019 7:25 AM Dictated By: DAKOTAH SOUZA DO 4 Transcribed By: FRANCISCO J on 05/10/19724 COPY TO: SRIRAM HIDALGO DO CT ABDOMEN/PELVIS UO5402-18-36 06:42:00 [place] [address] Patient Name: YARITZA JOSEPH MR #: [id number] : 1960 Age/Sex: 58/F Req #: [id number] Adm Physician: Ordered by: SRIRAM HIDALGO DO Report #: [id number] Location: Room/Bed: Procedure: [id number] CT/ CT ABDOMEN/PELVIS WO Exam Date: 05/10/19 Exam Time: 621 REPORT STATUS: Signed EXAM: CT Abdomen and Pelvis WITHOUT contrast INDICATION: vomiting, nausea, COM PARISON: Abdominal CT report from 11/27/2016 TECHNIQUE: Abdomen and pelvis wer e scanned utilizing a multidetector helical scanner from the lung base to the pubic symphysis without administration of IV contrast. Absence of intravenous contrast decreases sensitivity for detection of focal lesions and vascular pat hology. Coronal and sagittal reformations were obtained. Routine protocol was performed. IV CONTRAST: None ORAL CONTRAST: None COMPLICATIONS: None RADIATION DOSE: Total DLP: 233 mGy*cm Es timated effective dose: (DLP x 0.015 x size factor) mSv CTDIvol has been reviewed. It is below the limits set by the Radiation Protocol Committee (RPC) . Dose modulation, iterative reconstruction, and/or weight based adjustme nt of the mA/kV was utilized to reduce the radiation dose to as low as reasona krzysztof achievable. FINDINGS: LINES and TUBES: None. LOWER THORAX: Dense mitral annular calcifications. Mild cardiomegaly. Groundglass opacities in the lower lungs, more so on the right. Linear coarse bibasilar opacities. Mild bibasilar atelectasis. Some of the groundglass opacities demonstrate tree -in-bud nodular pattern. HEPATOBILIARY: No focal hepatic lesions. No b iliary ductal dilation. GALLBLADDER: No radio-opaque stones or sludge. No wall thickening. SPLEEN: No splenomegaly. PANCREAS: No focal masses or ductal dilatation. ADRENALS: Stable 5.6 cm fluid dense left adrenal cy sts, described on abdominal CT report from 11/27/2016. No right adrenal nodule s KIDNEYS/URETERS: No hydronephrosis. No cystic or solid mass lesions. No stones. GI TRACT: Numerous dilated and fluid-filled loops of small b owel. A dilated loop of small bowel in the right lower quadrant at the site of at least one transition point has mesenteric edema and surrounding free fluid. Probable wall thickening of dilated small bowel loops in the right lower antelmo drant. Surgical changes of right hemicolectomy. Circumferential rectal wall th ickening. PELVIC ORGANS/BLADDER: Unremarkable. LYMPH NODES: No ly mphadenopathy. VESSELS: Scattered mild arterial vascular calcifications. PERITONEUM / RETROPERITONEUM: Focal mesenteric edema between dilated small bowel loops in the right lower quadrant. Small volume ascites. No free air. BONES: Stable proximal left femoral fixation hardware. Degenerative changes in the spine. SOFT TISSUES: Unremarkable. IMPRESSIO N: 1. High-grade small bowel obstruction with transition point in the rig ht lower quadrant. Some findings are suspicious for closed loop obstruction an d ischemia although evaluation is difficult in the absence of IV contrast. Rec ommend abdominal CT with IV contrast and correlation with serum lactic. Small volume ascites. 2. Groundglass opacities in the lung bases, more so in t he right lower lobe, could be due to concerning for pneumonia, possibly viral or aspiration. 3. Rectal wall thickening, correlate for proctitis. Conside r proctoscopy. 4. Stable 5.6 cm fluid dense left adrenal cysts, described on abdominal CT report from 11/27/2016. IV contrast is necessary to further ch aracterize. 5. Dense mitral annular calcific valvular disease with mild ca rdio megaly Findings 1 and 2 discussed with ER provider Dr. Hidalgo at 7:10 AM on 05/10/[address] Souza via telephone. Signed by: Dakotah Souza DO on 05/10/2019 7:23 AM Dictated By: DAKOTAH SOUZA DO Electronically Si gned By: DAKOTAH SOUZA DO on 05/10/19722 Transcribed By: FRANCISCO J on 722 COPY TO: SRIRAM HIDALGO DO Lactic Acid Qdotu0536-27-85 05:48:00* Test Item Value Reference Range Interpretation Comments Lactic Acid Level (test code = Lactic Acid Level) 1.5 0.5- 2.0 [facility] Natriuretic Vjjquut7627-13-28 05:45:00* Test Item Value Reference Range Interpretation Comments B-Type Natriuretic Peptide (test code = 67702-4) 2115.2 0-100 H [facility] CenterCreatine Hzphzi1415-43-92 05:45:00* Test Item Value Reference Range Interpretation Comments Creatine Kinase (test code = 2157-6) 13 29-168 L [facility] CenterCreatine Kinase YN0836-73-30 05:45:00* Test Item Value Reference Range Interpretation Comments Creatine Kinase MB (test code = 69751-5) 1.70 0-5.0 [facility] CenterTroponin E1667-18-04 05:45:00* Test Item Value Reference Range Interpretation Comments Troponin I (test code = 62726-2) 0.009 0-0.300 [facility] CenterBlood Terfgdv5328-70-70 11:36:00* Test Item Value Reference Range Interpretation Comments Blood Culture (test code = 88911397) NO GROWTH AFTER [address] [facility] [place] [place] Kubslct9848-34-31 16:21:00* Test Item Value Reference Range Interpretation Comments Bedside Glucose (test code = 60054-8) 155 70-120 H Meter ID: [id number] Glucose 2019-04-27 16:21:00* Test Item Value Reference Range Interpretation Comments Bedside Glucose (test code = 07351-5) 155 70-120 H Meter ID: [id number] [facility] CenterBlood Culture 2019-04-27 11:36:00* Test Item Value Reference Range Interpretation Comments Blood Culture (test code = 66768658) NO GROWTH AFTER 48 HOURS [facility] CenterUrine LVU9520-13-69 10:37:00* Test Item Value Reference Range Interpretation Comments Urine WBC (test code = 5821-4) 0-5 0-5 [facility] CenterU[facility] JJH0366-44-09 10:37:00* Test Item Value Reference Range Interpretation Comments Urine RBC (test code = 01445-0) 0-5 0-5 [facility] CenterUrine Hvgskscb8661-87-31 10:37:00* Test Item Value Reference Range Interpretation Comments Urine Bacteria (test code = 56860-8) RARE NONE [facility] CenterUrine Epithelial Djbdr6502-44-75 10:37:00 * Test Item Value Reference Range Interpretation Comments Urine Epithelial Cells (test code = 27395-2) FEW NONE [facility] CenterUrine AZQ8600-93-47 10:37:00* Test Item Value Reference Range Interpretation Comments Urine WBC (test code = 5821-4) 0-5 0-5 [facility] CenterU[facility] BIR5404-08-05 10:37:00* Test Item Value Reference Range Interpretation Comments Urine RBC (test code = 88710-5) 0-5 0-5 [facility] CenterU[facility] Sufnjovr5162-15-84 10:37:00* Test Item Value Reference Range Interpretation Comments Urine Bacteria (test code = 37772-4) RARE NONE [facility] CenterU[facility] Epithelial Zcgot2072-62-50 10:37:00 * Test Item Value Reference Range Interpretation Comments Urine Epithelial Cells (test code = 89588-8) FEW NONE [facility] CenterU[facility] Cuess4829-92-00 10:30:00* Test Item Value Reference Range Interpretation Comments Urine Color (test code = 5778-6) YELLOW YELLOW [facility] CenterUrine Xvcfwru9609-31-95 10:30:00* Test Item Value Reference Range Interpretation Comments Urine Clarity (test code = 31200-0) CLEAR CLEAR [facility] CenterUrine Specific Twzydrg5986-21-20 10:30:00 * Test Item Value Reference Range Interpretation Comments Urine Specific [place] (test code = 5811-5) 1.025 1.010-1.02 5 [facility] CenterUrine zC7891-66-70 10:30:00* Test Item Value Reference Range Interpretation Comments Urine pH (test code = 16732-7) 8.5 5-7 [facility] CenterU[facility] Leukocyte Euxiknut2225-36-14 10:30:00* Test Item Value Reference Range Interpretation Comments Urine Leukocyte Esterase (test code = 5799-2) NEGATIVE NEGATIVE [facility] CenterU[facility] Qyfmdux3107-79-91 10:30:00* Test Item Value Reference Range Interpretation Comments Urine Nitrite (test code = 45024-9) NEGATIVE NEGATIVE [facility] CenterU[facility] Fpnfmvc0644-48-40 10:30:00* Test Item Value Reference Range Interpretation Comments Urine Protein (test code = 5804-0) >=300 NEGATIVE [facility] CenterU[facility] Glucose (UA)2019-04-26 10:30:00* Test Item Value Reference Range Interpretation Comments Urine Glucose (UA) (test code = 2349-9) 2+ NEGATIVE H [facility] CenterUrine Ejtljoc9714-03-18 10:30:00* Test Item Value Reference Range Interpretation Comments Urine Ketones (test code = 93709-8) NEGATIVE NEGATIVE [facility] Rjjiqcoeossr5484-59-57 10:30:00* Test Item Value Reference Range Interpretation Comments Urine Urobilinogen (test code = 46140-4) 0.2 0.2-1 [facility] Umgadcdhp0103-85-26 10:30:00* Test Item Value Reference Range Interpretation Comments Urine Bilirubin (test code = 1978-6) NEGATIVE NEGATIVE [facility] CenterU[facility] Zadss3240-63-96 10:30:00* Test Item Value Reference Range Interpretation Comments Urine Blood (test code = 71043-5) NEGATIVE NEGATIVE [facility] CenterUrine Vgota4284-07-59 10:30:00* Test Item Value Reference Range Interpretation Comments Urine Color (test code = 5778-6) YELLOW YELLOW [facility] CenterUrine Hjhvocp7853-37-84 10:30:00* Test Item Value Reference Range Interpretation Comments Urine Clarity (test code = 90147-3) CLEAR CLEAR [facility] CenterUrine Specific Wuefojq5030-61-17 10:30:00 * Test Item Value Reference Range Interpretation Comments Urine Specific [place] (test code = 5811-5) 1.025 1.010-1.02 5 [facility] CenterUrine iW3545-31-73 10:30:00* Test Item Value Reference Range Interpretation Comments Urine pH (test code = 75100-9) 8.5 5-7 [facility] CenterUrine Leukocyte Bdkfppqz3712-28-62 10:30:00* Test Item Value Reference Range Interpretation Comments Urine Leukocyte Esterase (test code = 5799-2) NEGATIVE NEGATIVE [facility] CenterUrine Saaixja8438-68-87 10:30:00* Test Item Value Reference Range Interpretation Comments Urine Nitrite (test code = 06891-2) NEGATIVE NEGATIVE [facility] CenterUrine Jxcpwjq1917-54-56 10:30:00* Test Item Value Reference Range Interpretation Comments Urine Protein (test code = 5804-0) >=300 NEGATIVE [facility] CenterUrine Glucose (UA)2019-04-26 10:30:00* Test Item Value Reference Range Interpretation Comments Urine Glucose (UA) (test code = 2349-9) 2+ NEGATIVE H [facility] CenterUrine Bqfdlaa0741-75-20 10:30:00* Test Item Value Reference Range Interpretation Comments Urine Ketones (test code = 03127-4) NEGATIVE NEGATIVE [facility] Nebqddqctswu6684-76-76 10:30:00* Test Item Value Reference Range Interpretation Comments Urine Urobilinogen (test code = 96265-7) 0.2 0.2-1 [facility] CenterUrine Nnsqnzifk6954-49-23 10:30:00* Test Item Value Reference Range Interpretation Comments Urine Bilirubin (test code = 1978-6) NEGATIVE NEGATIVE [facility] CenterUrine Xbfun7146-63-15 10:30:00* Test Item Value Reference Range Interpretation Comments Urine Blood (test code = 76291-9) NEGATIVE NEGATIVE [facility] CenterHepatitis B Surface Antibody, Quant 2019-04-26 09:57:00* Test Item Value Reference Range Interpretation Comments Hepatitis B Surface Antibody, Quant (test code = 5194-6) Reactive Status of Immunity Anti-HBs Level -- NON REACTIVE: Inconsistent with Immunity 0.0 - 9.9REACTIVE:Consistent with Immunity >9.9 mIU/mL Performed at: - [facility] [id number] Director: Edmond Mcneil MD, Phone: [phone] [facility] [place] [facility] Core Total Kxptzuwr1635-22-28 09:57:00* Test Item Value Reference Range Interpretation Comments Hepatitis B Core Total Antibody (test code = 25340-4) Negative [facility] C Wjsyfnli1523-74-66 09:57:00* Test Item Value Reference Range Interpretation Comments Hepatitis C Antibody (test code = 25585-7) <0.1 [facility] B Surface Ndcnzog1676-74-85 09:57:00* Test Item Value Reference Range Interpretation Comments Hepatitis B Surface Antigen (test code = 5196-1) Negative [facility] B Surface Antibody, Quant 2019-04-26 09:57:00* Test Item Value Reference Range Interpretation Comments Hepatitis B Surface Antibody, Quant (test code = 5194-6) Reactive Status of Immunity Anti-HBs Level -- NON REACTIVE: Inconsistent with Immunity 0.0 - 9.9REACTIVE:Consistent with Immunity >9.9 mIU/mL Performed at: [facility] [id number] Director: Edmond Mcneil MD, Phone: [phone] [place] B Core Total Yniuaiur0415-13-66 09:57:00* Test Item Value Reference Range Interpretation Comments Hepatitis B Core Total Antibody (test code = 66512-9) Negative [facility] C Lpjhreos6922-52-08 09:57:00* Test Item Value Reference Range Interpretation Comments Hepatitis C Antibody (test code = 76967-9) <0.1 [facility] B Surface Luvcdmg0803-69-56 09:57:00* Test Item Value Reference Range Interpretation Comments Hepatitis B Surface Antigen (test code = 5196-1) Negative [facility] B Surface Antibody, Quant 2019-04-26 09:57:00* Test Item Value Reference Range Interpretation Comments Hepatitis B Surface Antibody, Quant (test code = 5194-6) Reactive Status of Immunity Anti-HBs Level -- NON REACTIVE: Inconsistent with Immunity 0.0 - 9.9REACTIVE:Consistent with Immunity >9.9 mIU/mL Performed at: [facility] [address] [id number] Director: Edmond Mcneil MD, Phone: [phone] [facility] Medical CenterHepatileconte medical center B Core Total Ekmbrgqk7887-86-10 09:57:00* Test Item Value Reference Range Interpretation Comments Hepatitis B Core Total Antibody (test code = 31446-1) Negative [facility] C Dargbhxu4319-93-23 09:57:00* Test Item Value Reference Range Interpretation Comments Hepatitis C Antibody (test code = 78981-5) <0.1 [facility] B Surface Lbgmwfc2621-18-27 09:57:00* Test Item Value Reference Range Interpretation Comments Hepatitis B Surface Antigen (test code = 5196-1) Negative [facility] Zyqnb0944-45-28 06:27:00* Test Item Value Reference Range Interpretation Comments Sodium Level (test code = 2951-2) 140 136-145 [facility] CenterPotassium Tyxdo6899-94-64 06:27:00* Test Item Value Reference Range Interpretation Comments Potassium Level (test code = 2823-3) 4.2 3.5-5.1 [facility] CenterChloride Aherq4944-04-22 06:27:00* Test Item Value Reference Range Interpretation Comments Chloride Level (test code = 2075-0) 97 98-107 L [facility] CenterCarbon Dioxide Mgeyk2891-67-20 06:27:00* Test Item Value Reference Range Interpretation Comments Carbon Dioxide Level (test code = 2028-9) 25 22-29 [facility] CenterAnion Czt1191-10-02 06:27:00* Test Item Value Reference Range Interpretation Comments Anion Gap (test code = 63449-1) 22.2 8-16 H [facility] CenterBlood Urea Jfopjfhm0531-32-79 06:27:00* Test Item Value Reference Range Interpretation Comments Blood Urea Nitrogen (test code = 3094-0) 20 7-26 [facility] CenterCreatinine2020-03-16 06:27:00* Test Item Value Reference Range Interpretation Comments Creatinine (test code = 2160-0) 4.08 0.57-1.11 H [facility] CenterBUN/Creatinine Vhqdc8427-58-27 06:27:00* Test Item Value Reference Range Interpretation Comments BUN/Creatinine Ratio (test code = 3097-3) 5 6-25 L [facility] CenterEstimat Glomerular Filtration Rate 2019-04-26 06:27:00* Test Item Value Reference Range Interpretation Comments Estimat Glomerular Filtration Rate (test code = 193085027) 11 >60 L Ranges were taken from the National Kidney Disease Education Program and the [facility] literature.Reference ranges:60 or greater: Frarfx52-03 ( for 3 consecutive months): Chronic kidney disease 15 or less: Kidney failureMethodist Richardson Medical CenterGlucose Xohps6740-55-06 06:27:00* Test Item Value Reference Range Interpretation Comments Glucose Level (test code = WNQ5988) 135 74-118 H [facility] CenterCalcium Ujjca9735-74-22 06:27:00* Test Item Value Reference Range Interpretation Comments Calcium Level (test code = 84783-7) 9.3 8.4-10.2 [facility] Hltjn6104-89-25 06:27:00* Test Item Value Reference Range Interpretation Comments Sodium Level (test code = 2951-2) 140 136-145 [facility] CenterPotassium Pnpsv1937-27-67 06:27:00* Test Item Value Reference Range Interpretation Comments Potassium Level (test code = 2823-3) 4.2 3.5-5.1 [facility] CenterChloride Wkkbf9528-32-46 06:27:00* Test Item Value Reference Range Interpretation Comments Chloride Level (test code = 2075-0) 97 98-107 L [facility] CenterCarbon Dioxide Vsdou0769-12-65 06:27:00* Test Item Value Reference Range Interpretation Comments Carbon Dioxide Level (test code = 2028-9) 25 22-29 [facility] CenterAnion Yxq8683-13-89 06:27:00* Test Item Value Reference Range Interpretation Comments Anion Gap (test code = 77599-6) 22.2 8-16 H [facility] CenterBlood Urea Forqassh8207-16-75 06:27:00* Test Item Value Reference Range Interpretation Comments Blood Urea Nitrogen (test code = 3094-0) 20 7-26 [facility] CenterCreatinine2020-03-16 06:27:00* Test Item Value Reference Range Interpretation Comments Creatinine (test code = 2160-0) 4.08 0.57-1.11 H [facility] CenterBUN/Creatinine Ptjmr2644-54-08 06:27:00* Test Item Value Reference Range Interpretation Comments BUN/Creatinine Ratio (test code = 3097-3) 5 6-25 L [facility] CenterEstimat Glomerular Filtration Rate 2019-04-26 06:27:00* Test Item Value Reference Range Interpretation Comments Estimat Glomerular Filtration Rate (test code = 702291810) 11 >60 L Ranges were taken from the National Kidney Disease Education Program and the [facility] Kid[facility] Foundation literature.Reference ranges:60 or greater: Dfkafu86-66 ( for 3 consecutive months): Chronic kidney disease 15 or less: Kidney failureMethodist Richardson Medical CenterGlucose Jocjo9465-33-11 06:27:00* Test Item Value Reference Range Interpretation Comments Glucose Level (test code = RCO9094) 135 74-118 H [facility] CenterCalcium Cmusf9506-46-14 06:27:00* Test Item Value Reference Range Interpretation Comments Calcium Level (test code = 30849-4) 9.3 8.4-10.2 [facility] CenterWhite Blood Wbnge9700-36-25 06:03:00* Test Item Value Reference Range Interpretation Comments White Blood Count (test code = 6690-2) 6.77 4.8-10.8 [facility] CenterRed Blood Hwwqi3876-22-31 06:03:00* Test Item Value Reference Range Interpretation Comments Red Blood Count (test code = 789-8) 2.73 3.6-5.1 L [facility] CenterHemoglobin2020-03-16 06:03:00* Test Item Value Reference Range Interpretation Comments Hemoglobin (test code = 28355-5) 8.6 12.0-16.0 L [facility] CenterHematocrit2020-03-16 06:03:00* Test Item Value Reference Range Interpretation Comments Hematocrit (test code = 4544-3) 28.5 34.2-44.1 L [facility] CenterMean Corpuscular Smzbzf9060-23-84 06:03:00* Test Item Value Reference Range Interpretation Comments Mean Corpuscular Volume (test code = 787-2) 104.4 81-99 H [facility] CenterMean Corpuscular Zptyypfnks2873-63-45 06:03:00* Test Item Value Reference Range Interpretation Comments Mean Corpuscular Hemoglobin (test code = 785-6) 31.5 28-32 [facility] CenterMean Corpuscular Hemoglobin Concent 2019-04-26 06:03:00* Test Item Value Reference Range Interpretation Comments Mean Corpuscular Hemoglobin Concent (test code = 786-4) 30.2 31-35 L [facility] CenterRed Cell Distribution Fexky0840-83-83 06:03:00* Test Item Value Reference Range Interpretation Comments Red Cell Distribution Width (test code = 66621-8) 15.9 11.7 -14.4 H [facility] CenterPlatelet Repcn5181-58-25 06:03:00* Test Item Value Reference Range Interpretation Comments Platelet Count (test code = 777-3) 374 140-360 H [facility] CenterNeutrophils (%) (Auto)2019-04-26 06:03:00 * Test Item Value Reference Range Interpretation Comments Neutrophils (%) (Auto) (test code = 69231-2) 72.0 38.7-80.0 [facility] CenterLymphocytes (%) (Auto)2019-04-26 06:03:00 * Test Item Value Reference Range Interpretation Comments Lymphocytes (%) (Auto) (test code = 736-9) 13.0 18.0-39.1 L [facility] CenterMonocytes (%) (Auto)2019-04-26 06:03:00* Test Item Value Reference Range Interpretation Comments Monocytes (%) (Auto) (test code = 5905-5) 13.7 4.4-11.3 H [facility] CenterEosinophils (%) (Auto)2019-04-26 06:03:00 * Test Item Value Reference Range Interpretation Comments Eosinophils (%) (Auto) (test code = 713-8) 0.3 0.0-6.0 [facility] CenterBasophils (%) (Auto)2019-04-26 06:03:00* Test Item Value Reference Range Interpretation Comments Basophils (%) (Auto) (test code = 706-2) 0.4 0.0-1.0 [facility] CenterIM GRANULOCYTES %2019-04-26 06:03:00* Test Item Value Reference Range Interpretation Comments IM GRANULOCYTES % (test code = IM GRANULOCYTES %) 0.6 0.0- 1.0 [facility] CenterNeutrophils # (Auto)2019-04-26 06:03:00* Test Item Value Reference Range Interpretation Comments Neutrophils # (Auto) (test code = 751-8) 4.9 2.1-6.9 [facility] CenterLymphocytes # (Auto)2019-04-26 06:03:00* Test Item Value Reference Range Interpretation Comments Lymphocytes # (Auto) (test code = 05322-3) 0.9 1.0-3.2 L [facility] CenterMonocytes # (Auto)2019-04-26 06:03:00* Test Item Value Reference Range Interpretation Comments Monocytes # (Auto) (test code = 742-7) 0.9 0.2-0.8 H [facility] CenterEosinophils # (Auto)2019-04-26 06:03:00* Test Item Value Reference Range Interpretation Comments Eosinophils # (Auto) (test code = 711-2) 0.0 0.0-0.4 [facility] CenterBasophils # (Auto)2019-04-26 06:03:00* Test Item Value Reference Range Interpretation Comments Basophils # (Auto) (test code = 704-7) 0.0 0.0-0.1 [facility] CenterAbsolute Immature Granulocyte (auto 2019-04-26 06:03:00* Test Item Value Reference Range Interpretation Comments Absolute Immature Granulocyte (auto (carine t code = Absolute Immature Granulocyte (auto) 0.04 0-0.1 [facility] CenterWhite Blood Rylst9681-00-26 06:03:00* Test Item Value Reference Range Interpretation Comments White Blood Count (test code = 6690-2) 6.77 4.8-10.8 [facility] CenterRed Blood Kqmhm3407-56-55 06:03:00* Test Item Value Reference Range Interpretation Comments Red Blood Count (test code = 789-8) 2.73 3.6-5.1 L [facility] CenterHemoglobin2020-03-16 06:03:00* Test Item Value Reference Range Interpretation Comments Hemoglobin (test code = 94964-3) 8.6 12.0-16.0 L [facility] CenterHematocrit2020-03-16 06:03:00* Test Item Value Reference Range Interpretation Comments Hematocrit (test code = 4544-3) 28.5 34.2-44.1 L [facility] CenterMean Corpuscular Mofomx7615-02-59 06:03:00* Test Item Value Reference Range Interpretation Comments Mean Corpuscular Volume (test code = 787-2) 104.4 81-99 H [facility] CenterMean Corpuscular Ceznxjiohi3086-36-13 06:03:00* Test Item Value Reference Range Interpretation Comments Mean Corpuscular Hemoglobin (test code = 785-6) 31.5 28-32 [facility] CenterMean Corpuscular Hemoglobin Concent 2019-04-26 06:03:00* Test Item Value Reference Range Interpretation Comments Mean Corpuscular Hemoglobin Concent (test code = 786-4) 30.2 31-35 L [facility] CenterRed Cell Distribution Tajgx4087-27-80 06:03:00* Test Item Value Reference Range Interpretation Comments Red Cell Distribution Width (test code = 07605-9) 15.9 11.7 -14.4 H [facility] CenterPlatelet Frtdv0334-66-15 06:03:00* Test Item Value Reference Range Interpretation Comments Platelet Count (test code = 777-3) 374 140-360 H [facility] [facility] CenterNeutrophils (%) (Auto)2019-04-26 06:03:00 * Test Item Value Reference Range Interpretation Comments Neutrophils (%) (Auto) (test code = 98089-5) 72.0 38.7-80.0 [facility] CenterLymphocytes (%) (Auto)2019-04-26 06:03:00 * Test Item Value Reference Range Interpretation Comments Lymphocytes (%) (Auto) (test code = 736-9) 13.0 18.0-39.1 L [facility] CenterMonocytes (%) (Auto)2019-04-26 06:03:00* Test Item Value Reference Range Interpretation Comments Monocytes (%) (Auto) (test code = 5905-5) 13.7 4.4-11.3 H [facility] CenterEosinophils (%) (Auto)2019-04-26 06:03:00 * Test Item Value Reference Range Interpretation Comments Eosinophils (%) (Auto) (test code = 713-8) 0.3 0.0-6.0 [facility] CenterBasophils (%) (Auto)2019-04-26 06:03:00* Test Item Value Reference Range Interpretation Comments Basophils (%) (Auto) (test code = 706-2) 0.4 0.0-1.0 [facility] CenterIM GRANULOCYTES %2019-04-26 06:03:00* Test Item Value Reference Range Interpretation Comments IM GRANULOCYTES % (test code = IM GRANULOCYTES %) 0.6 0.0- 1.0 [facility] CenterNeutrophils # (Auto)2019-04-26 06:03:00* Test Item Value Reference Range Interpretation Comments Neutrophils # (Auto) (test code = 751-8) 4.9 2.1-6.9 [facility] CenterLymphocytes # (Auto)2019-04-26 06:03:00* Test Item Value Reference Range Interpretation Comments Lymphocytes # (Auto) (test code = 53070-3) 0.9 1.0-3.2 L [facility] CenterMonocytes # (Auto)2019-04-26 06:03:00* Test Item Value Reference Range Interpretation Comments Monocytes # (Auto) (test code = 742-7) 0.9 0.2-0.8 H [facility] CenterEosinophils # (Auto)2019-04-26 06:03:00* Test Item Value Reference Range Interpretation Comments Eosinophils # (Auto) (test code = 711-2) 0.0 0.0-0.4 [facility] CenterBasophils # (Auto)2019-04-26 06:03:00* Test Item Value Reference Range Interpretation Comments Basophils # (Auto) (test code = 704-7) 0.0 0.0-0.1 [facility] CenterAbsolute Immature Granulocyte (auto 2019-04-26 06:03:00* Test Item Value Reference Range Interpretation Comments Absolute Immature Granulocyte (auto (carine t code = Absolute Immature Granulocyte (auto) 0.04 0-0.1 [facility] CenterLactic Acid Myisc9109-14-29 16:12:00* Test Item Value Reference Range Interpretation Comments Lactic Acid Level (test code = Lactic Acid Level) 0.7 0.5- 2.0 [facility] CenterLactic Acid Rrmqw6861-94-14 16:12:00* Test Item Value Reference Range Interpretation Comments Lactic Acid Level (test code = Lactic Acid Level) 0.7 0.5- 2.0 [facility] CenterCHEST SINGLE (PORTABLE)2019-04-25 11:17:00 [facility] [address] [place] [address] Patient Name: YARITZA JOSEPH MR #: [id number] : 1960 Age/Sex: 58/F Req #: [id number] Adm Physician: BRENDAN TSANG MD Ordered by: BRENDAN TSANG MD Report #: [id number] Location: MED/SURG Room/Bed: [facility] Procedure: [id number] DX/CHEST SINGLE (PORTABLE) Exam Date: 04/25/19 Exam Time: 1100 REPORT STATUS: Signed EXAMINATION: CHEST SINGLE (PORTABLE) COMPARISON: Chest x-ray 04/22/19, chest x-ray 04/05/2019 INDICATION: Cough SOB DISCUSSION: F rontal view of the chest obtained at 1110 hours. HEART AND MEDIASTINUM: St able cardiomegaly and enlarged pulmonary arteries. The thoracic aorta is tortu ous LINES: None. LUNGS: The lungs are diffusely hyperinflated sugg estive of small airways disease. Subsegmental atelectasis in the left lower lo be is similar. Chronic atelectasis/scar in the right middle lobe is stable. PLEURA: No large effusions. No pneumothorax. BONES AND SOFT TISSUES: Stable. IMPRESSION: 1. Stable hyperinflation. Bilateral subsegmental atelectasis. 2. Stable cardiomegaly and enlarged pulmonary arteries sugge stive of pulmonary artery hypertension. No evidence of CHF. Signed by: Dr Dennis De Jesus MD on 04/25/2019 11:22 AM Dictated By: ROSIE TEAGUE MD 21 Transcr ibed By: FRANCISCO J on 04/25/191121 COPY TO: BRENDAN TSANG MD CT BRAIN [id number] 14:22:00 [facility] [address] [address] Patient Name: YARITZA JOSEPH MR #: [id number] : 1960 Age/Sex: 58/F Req #: [id number] Adm Physician: BRENDAN TSANG MD Ordered by: BRENDAN TSANG MD Report #: [id number] Location: MED/SURG Room/Bed: [facility] Procedure: [id number] CT/CT BRAIN WO Exam Date: 04/24/19 Exam Time: 1340 REPORT STATUS: Signed Examination: CT head without contrast Clinical Indication: Lethargy. Technique: Transa xial noncontrast images from the skull base through the vertex were obtained. Sagittal and coronal reformatted images were done. Dose modulation, iterative reconstruction, and/or weight based adjustment of the mA/kV was utilized to re duce the radiation dose to as low as reasonably achievable. Comparison: Non e. Findings: Scalp: No abnormalities. Bones: Intact. No fractures. No blastic or lytic lesions. Brain sulci: Mild volume loss for patient's a ge. Ventricles: No hydrocephalus. Extra-axial space: No abnormalities. Parenchyma: There are patchy areas of low-attenuation within subcortical and periventricular white matter, nonspecific, but could represent microvasc ular ischemic disease. Chronic lacunar infarct of the left caudate head, put amen and thalamus, No masses, hemorrhage, or acute or chronic cortical based vascular insults. Suprasellar region: No abnormalities. Craniocervical ju nction: The foramen magnum is patent. No Chiari one malformation. Incide ntal findings: Opacified partially visualized left maxillary sinus. Impr ession: 1. No acute intracranial finding. 2. Chronic microvascular i schemic change. Chronic lacunar infarcts as above. Signed by: Dr. Nan Muro M.D. on 04/24/2019 2:33 PM Dictated By: NAN THOMPSON MD 32 Tra nscribed By: FRANCISCO J on 04/24/191432 COPY TO: BRENDAN TSANG MD Phosphorus Lkqjj2553-02-10 06:31:00* Test Item Value Reference Range Interpretation Comments Phosphorus Level (test code = ZIW4041) 6.1 2.3-4.7 H [facility] CenterPhosphorus Carni0026-39-52 06:31:00* Test Item Value Reference Range Interpretation Comments Phosphorus Level (test code = BMN3869) 6.1 2.3-4.7 H [facility] Qmknuzvbp6002-33-20 12:30:00* Test Item Value Reference Range Interpretation Comments Total Bilirubin (test code = 1974-2) 0.6 0.2-1.2 [facility] Nnpwdjsmz4688-43-70 12:30:00* Test Item Value Reference Range Interpretation Comments Total Bilirubin (test code = 1975-2) 0.6 0.2-1.2 [facility] CenterCHEST SINGLE (PORTABLE)2019-04-22 12:23:00 [facility] [address] [place] [address] Patient Name: YARITZA JOSEPH MR #: [id number] : 1960 Age/Sex: 58/F Req #: [id number] Adm Physician: BRENDAN TSANG MD Ordered by: SRIRAM HIDALGO DO Report #: [id number] Location: MED/SURG2 Room/Bed: [facility] Procedure: [id number] D X/CHEST SINGLE (PORTABLE) Exam Date: 04/22/19 Exam T leyda: 1136 REPORT STATUS: Signed EXAMINATION: CHEST SINGLE (PORTABLE) INDICATION: Preoperative COM PARISON: Chest radiograph 12/21/2018 FINDINGS: LINES/TUBES:EKG le ads overlie the chest. LUNGS:The lungs are mildly hyperinflated. There is p erihilar fullness and indistinctness of the pulmonary vasculature. PLEURA :No pleural effusion or pneumothorax. MEDIASTINUM:Cardiomediastinal silhoue tte is stably enlarged. BONES/SOFT TISSUES:No acute osseous injury. AB DOMEN:No free air under the diaphragm. IMPRESSION: Cardiomegaly and m ild interstitial pulmonary edema. No focal pneumonia or pulmonary edema. Signed by: Varghese Mahajan MD on 04/22/2019 12:25 PM Dictated By: VARGHESE MAHAJAN MD 1225 Transcribed By: FRANCISCO J on 04/22/19 1225 COPY TO: SRIRAM HIDALGO DO Activated Partial Thromboplast Zcdg7913-84-84 11:55:00* Test Item Value Reference Range Interpretation Comments Activated Partial Thromboplast Time (test code = 14238-0) 26.9 23.8-35.5 [facility] CenterActivated Partial Thromboplast Time 2019-04-22 11:55:00* Test Item Value Reference Range Interpretation Comments Activated Partial Thromboplast Time (test code = 47867-5) 26.9 23.8-35.5 [facility] CenterActivated Partial Thromboplast Time 2019-04-22 11:55:00* Test Item Value Reference Range Interpretation Comments Activated Partial Thromboplast Time (test code = 97401-9) 26.9 23.8-35.5 [facility] CenterProthrombin Wvha4052-14-41 11:40:00* Test Item Value Reference Range Interpretation Comments Prothrombin Time (test code = 5902-2) 13.4 11.9-14.5 [facility] CenterProthromb Time International Ratio 2019-04-22 11:40:00* Test Item Value Reference Range Interpretation Comments Prothromb Time International Ratio (test code = 6301-6) 0.96 Oral Anticoagulant Therapy INR Values:1. Low Intensity Therapy 1.5 - 2.02 . Moderate Intensity Therapy 2.0 - 3.03. High Intensity Therapy(1) 2.5 - 3. 54. High Intensity Therapy(2) 3.0 - 4.05. Panic Value INR > 5.0 [facility] CenterProthrombin Nree1910-78-20 11:40:00* Test Item Value Reference Range Interpretation Comments Prothrombin Time (test code = 5902-2) 13.4 11.9-14.5 [facility] CenterProthromb Time International Ratio 2019-04-22 11:40:00* Test Item Value Reference Range Interpretation Comments Prothromb Time International Ratio (test code = 6301-6) 0.96 Oral Anticoagulant Therapy INR Values:1. Low Intensity Therapy 1.5 - 2.02 . Moderate Intensity Therapy 2.0 - 3.03. High Intensity Therapy(1) 2.5 - 3. 54. High Intensity Therapy(2) 3.0 - 4.05. Panic Value INR > 5.0 [facility] CenterAspartate Amino Transf (AST/SGOT) 2019-04-22 11:39:00* Test Item Value Reference Range Interpretation Comments Aspartate Amino Transf (AST/SGOT) (test code = Aspartate Amino Transf (AST/SGOT)) 16 5-34 [facility] CenterAlanine Aminotransferase (ALT/SGPT) 2019-04-22 11:39:00* Test Item Value Reference Range Interpretation Comments Alanine Aminotransferase (ALT/SGPT) (test code = 1742-6) 11 0-55 [facility] CenterTotal Crtkvfg9973-83-58 11:39:00* Test Item Value Reference Range Interpretation Comments Total Protein (test code = 2885-2) 6.4 6.5-8.1 L [facility] CenterAlbumin2020-03-12 11:39:00* Test Item Value Reference Range Interpretation Comments Albumin (test code = 1751-7) 3.2 3.5-5.0 L [facility] CenterGlobulin2020-03-12 11:39:00* Test Item Value Reference Range Interpretation Comments Globulin (test code = 22674-8) 3.2 2.3-3.5 [facility] CenterAlbumin/Globulin Ugqgi5962-65-54 11:39:00 * Test Item Value Reference Range Interpretation Comments Albumin/Globulin Ratio (test code = 1759-0) 1.0 0.8-2.0 [facility] CenterAlkaline Mgqkxnkeobo6546-14-17 11:39:00* Test Item Value Reference Range Interpretation Comments Alkaline Phosphatase (test code = 6768-6) 89 40-150 [facility] CenterAspartate Amino Transf (AST/SGOT) 2019-04-22 11:39:00* Test Item Value Reference Range Interpretation Comments Aspartate Amino Transf (AST/SGOT) (test code = Aspartate Amino Transf (AST/SGOT)) 16 5-34 [facility] CenterAlanine Aminotransferase (ALT/SGPT) 2019-04-22 11:39:00* Test Item Value Reference Range Interpretation Comments Alanine Aminotransferase (ALT/SGPT) (test code = 1742-6) 11 0-55 [facility] CenterTotal Dsymzcf9822-50-66 11:39:00* Test Item Value Reference Range Interpretation Comments Total Protein (test code = 2885-2) 6.4 6.5-8.1 L [facility] CenterAlbumin2020-03-12 11:39:00* Test Item Value Reference Range Interpretation Comments Albumin (test code = 1751-7) 3.2 3.5-5.0 L [facility] CenterGlobulin2020-03-12 11:39:00* Test Item Value Reference Range Interpretation Comments Globulin (test code = 03181-2) 3.2 2.3-3.5 [facility] CenterAlbumin/Globulin Zhnmd4819-93-08 11:39:00 * Test Item Value Reference Range Interpretation Comments Albumin/Globulin Ratio (test code = 1759-0) 1.0 0.8-2.0 [facility] CenterAlkaline Hgygrvnjuot9453-27-20 11:39:00* Test Item Value Reference Range Interpretation Comments Alkaline Phosphatase (test code = 6768-6) 89 40-150 [facility] PS4812-12-52 10:41:00 [facility] [address] [address] Patient Name: YARITZA JOSEPH MR #: [id number] : 1960 Age/Sex: 58/F Req #: [id number] Adm Physician: Ordered by: SRIRAM HIDALGO DO Report #: [id number] Location: ER Room/Bed: Procedure: [id number] CT/ CT HIP LEFT WO Exam Date: 04/22/19 Exam Time: 1010 REPORT STATUS: Signed EXAM: CT Le ft Hip WITHOUT contrast INDICATION: Trauma COMPARISON: None. TECHNIQUE: The left hip was scanned utilizing a multidetector helical scanner from the il iac crest to the proximal thigh without administration of IV contrast. Coronal and sagittal reformations were obtained. Routine protocol was performed. IV CONTRAST: None. ORAL CONTRAST: Water R ADIATION DOSE: Total DLP: 135 mGy*cm COMPLICATIONS: None FIND INGS: Minimally displaced minimally impacted subcapital left proximal femur fracture. No additional acute fractures identified. Small left hip joint effu tyler. Atherosclerotic arterial calcifications. No soft tissue mass or focal fl uid collection. Diverticulosis without CT evidence of diverticulitis. IMP RESSION: Minimally displaced and minimally impacted subcapital left proximal femur fracture. Signed by: Varghese Mahajan MD on 04/22/2019 10:44 AM Di ctated By: VARGHESE MAHAJAN MD 10 44 Transcribed By: FRANCISCO J on 04/22/19 1044 COPY TO: HIDALGO,SRIRAM DO HIP LEFT 2-3 VW (+/- PELVIS)2019-04-22 09:26:00 [facility] [address] [place] [address] Patient Name: YARITZA JOSEPH MR #: [id number] : 1960 Age/Sex: 58/F Req #: [id number] Adm Physician: Ordered by: SRIRAM HIDALGO DO Report #: [id number] Location: ER Room/Bed: Procedure: [id number] DX/ HIP LEFT 2-3 VW (+/- PELVIS) Exam Date: Exam Time: REPORT STATUS: Signed EXAMINATI ON: HIP LEFT 2-3 VW (+/- PELVIS) INDICATION: Trauma COMPARISON: N one FINDINGS: Subtle cortical irregularity suggestive of possible nondisplaced subcapital left proximal femur fracture. Alignment remains near- anatomic. No other acute fractures identified. Mild degenerative changes of slime th hip joints. Phleboliths in the pelvis. Nonobstructive bowel gas pattern. IMPRESSION: Possible nondisplaced subcapital left proximal femur fracture. CT is recommended for further evaluation. Signed by: Varghese Mahajan MD on 9:31 AM Dictated By: VARGHESE MAHAJAN MD 0 Transcribed By: FRANCISCO J on 04/22/19930 [employer] Y TO: SRIRAM HIDALGO DO Creatine Kinase [id number] 22:18:00* Test Item Value Reference Range Interpretation Comments Creatine Kinase MB (test code = 64536-9) 0.70 0-5.0 [facility]rop[facility] [id number] 22:18:00* Test Item Value Reference Range Interpretation Comments Troponin I (test code = KUW3014) 0.029 0-0.300 [facility] CenterCreatine Kinase [id number] 22:18:00* Test Item Value Reference Range Interpretation Comments Creatine Kinase MB (test code = 06811-4) 0.70 0-5.0 [facility] CenterTroponin P4959-47-01 22:18:00* Test Item Value Reference Range Interpretation Comments Troponin I (test code = PBU6700) 0.029 0-0.300 [facility] CenterCreatine Kinase WK1262-16-63 22:18:00* Test Item Value Reference Range Interpretation Comments Creatine Kinase MB (test code = 74588-1) 0.70 0-5.0 [facility] H5415-77-79 22:18:00* Test Item Value Reference Range Interpretation Comments Troponin I (test code = SGY5704) 0.029 0-0.300 [facility] CenterB-Type Natriuretic Oazrclt4332-86-93 21:59:00* Test Item Value Reference Range Interpretation Comments B-Type Natriuretic Peptide (test code = 08800-4) 1651.3 0-100 H [facility] CenterB-Type Natriuretic Iszeyml8587-23-52 21:59:00* Test Item Value Reference Range Interpretation Comments B-Type Natriuretic Peptide (test code = 76636-3) 1651.3 0-100 H [facility] CenterB-Type Natriuretic Actxvkw6036-52-79 21:59:00* Test Item Value Reference Range Interpretation Comments B-Type Natriuretic Peptide (test code = 60637-1) 1651.3 0-100 [facility]odium Vbene7257-53-38 21:57:00* Test Item Value Reference Range Interpretation Comments Sodium Level (test code = 2951-2) 141 136-145 [facility] CenterPotassium Uasob6861-18-11 21:57:00* Test Item Value Reference Range Interpretation Comments Potassium Level (test code = 2823-3) 3.0 3.5-5.1 L [facility] CenterChloride Fslwu6358-88-52 21:57:00* Test Item Value Reference Range Interpretation Comments Chloride Level (test code = 2075-0) 98 98-107 [facility] CenterCarbon Dioxide Utoic4075-65-89 21:57:00* Test Item Value Reference Range Interpretation Comments Carbon Dioxide Level (test code = 2028-9) 31 22-29 H [facility] CenterAnion Rlv3895-58-03 21:57:00* Test Item Value Reference Range Interpretation Comments Anion Gap (test code = 16005-3) 15.0 8-16 [facility] CenterBlood Urea Djbnjekg2179-76-03 21:57:00* Test Item Value Reference Range Interpretation Comments Blood Urea Nitrogen (test code = 3094-0) 14 7-26 [facility] CenterCreatinine2020-02-24 21:57:00* Test Item Value Reference Range Interpretation Comments Creatinine (test code = 2160-0) 2.64 0.57-1.11 H [facility] CenterBUN/Creatinine Mksik0283-71-57 21:57:00* Test Item Value Reference Range Interpretation Comments BUN/Creatinine Ratio (test code = 3097-3) 5 6-25 L [facility] CenterEstimat Glomerular Filtration Rate 2019-04-05 21:57:00* Test Item Value Reference Range Interpretation Comments Estimat Glomerular Filtration Rate (test code = 148817669) 19 >60 L Ranges were taken from the National Kidney Disease Education Program and the [facility] Kid[facility] Foundation literature.Reference ranges:60 or greater: Quyerw99-87 ( for 3 consecutive months): Chronic kidney disease 15 or less: Kidney failureMethodist [facility] Medical CenterGlucose Pbtto6623-38-62 21:57:00* Test Item Value Reference Range Interpretation Comments Glucose Level (test code = NLT1956) 76 74-118 [facility] CenterCalcium Cezxy9332-50-55 21:57:00* Test Item Value Reference Range Interpretation Comments Calcium Level (test code = 01111-3) 9.3 8.4-10.2 [facility] CenterTotal Szyixhuaj2704-49-83 21:57:00* Test Item Value Reference Range Interpretation Comments Total Bilirubin (test code = 1975-2) 0.8 0.2-1.2 [facility] CenterAspartate Amino Transf (AST/SGOT) 2019-04-05 21:57:00* Test Item Value Reference Range Interpretation Comments Aspartate Amino Transf (AST/SGOT) (test code = Aspartate Amino Transf (AST/SGOT)) 8 5-34 [facility] CenterAlanine Aminotransferase (ALT/SGPT) 2019-04-05 21:57:00* Test Item Value Reference Range Interpretation Comments Alanine Aminotransferase (ALT/SGPT) (test code = 1742-6) 7 0-55 [facility] CenterTotal Uktefsp9628-60-36 21:57:00* Test Item Value Reference Range Interpretation Comments Total Protein (test code = 2885-2) 6.7 6.5-8.1 [facility] CenterAlbumin2020-02-24 21:57:00* Test Item Value Reference Range Interpretation Comments Albumin (test code = 1751-7) 3.4 3.5-5.0 L [facility] CenterGlobulin2020-02-24 21:57:00* Test Item Value Reference Range Interpretation Comments Globulin (test code = 20466-2) 3.3 2.3-3.5 [facility] CenterAlbumin/Globulin Jtlgx9201-97-52 21:57:00 * Test Item Value Reference Range Interpretation Comments Albumin/Globulin Ratio (test code = 1759-0) 1.0 0.8-2.0 [facility] CenterAlkaline Xwbrpkiqkyj6230-98-08 21:57:00* Test Item Value Reference Range Interpretation Comments Alkaline Phosphatase (test code = 6768-6) 103 40-150 [facility] CenterCreatine Ziaadd2560-55-70 21:57:00* Test Item Value Reference Range Interpretation Comments Creatine Kinase (test code = 2157-6) 20 29-168 L [facility] CenterCreatine Scokme5002-54-40 21:57:00* Test Item Value Reference Range Interpretation Comments Creatine Kinase (test code = 2157-6) 20 29-168 L [facility] CenterCreatine Sylztx5473-68-52 21:57:00* Test Item Value Reference Range Interpretation Comments Creatine Kinase (test code = 2157-6) 20 29-168 L [facility] CenterProthrombin Cnmc5130-91-01 21:51:00* Test Item Value Reference Range Interpretation Comments Prothrombin Time (test code = 5902-2) 14.2 11.9-14.5 [facility] CenterProthromb Time International Ratio 2019-04-05 21:51:00* Test Item Value Reference Range Interpretation Comments Prothromb Time International Ratio (test code = 6301-6) 1.04 Oral Anticoagulant Therapy INR Values:1. Low Intensity Therapy 1.5 - 2.02 . Moderate Intensity Therapy 2.0 - 3.03. High Intensity Therapy(1) 2.5 - 3. 54. High Intensity Therapy(2) 3.0 - 4.05. Panic Value INR > 5.0 [facility] CenterActivated Partial Thromboplast Time 2019-04-05 21:51:00* Test Item Value Reference Range Interpretation Comments Activated Partial Thromboplast Time (test code = 38254-4) 31.9 23.8-35.5 [facility] CenterWhite Blood Ttfne0332-56-11 21:38:00* Test Item Value Reference Range Interpretation Comments White Blood Count (test code = 6690-2) 6.28 4.8-10.8 [facility] CenterRed Blood Fhkdw7395-73-48 21:38:00* Test Item Value Reference Range Interpretation Comments Red Blood Count (test code = 789-8) 3.45 3.6-5.1 L [facility] CenterHemoglobin2020-02-24 21:38:00* Test Item Value Reference Range Interpretation Comments Hemoglobin (test code = 73408-7) 11.0 12.0-16.0 L [facility] CenterHematocrit2020-02-24 21:38:00* Test Item Value Reference Range Interpretation Comments Hematocrit (test code = 4544-3) 33.8 34.2-44.1 L [facility] CenterMean Corpuscular Ithaad8323-66-38 21:38:00* Test Item Value Reference Range Interpretation Comments Mean Corpuscular Volume (test code = 787-2) 98.0 81-99 [facility] CenterMean Corpuscular Dtkeccvjqd2818-46-83 21:38:00* Test Item Value Reference Range Interpretation Comments Mean Corpuscular Hemoglobin (test code = 785-6) 31.9 28-32 [facility] CenterMean Corpuscular Hemoglobin Concent 2019-04-05 21:38:00* Test Item Value Reference Range Interpretation Comments Mean Corpuscular Hemoglobin Concent (test code = 786-4) 32.5 31-35 [facility] CenterRed Cell Distribution Jlvym6875-59-75 21:38:00* Test Item Value Reference Range Interpretation Comments Red Cell Distribution Width (test code = 57054-3) 15.6 11.7 -14.4 H [facility] CenterPlatelet Asudy1925-26-72 21:38:00* Test Item Value Reference Range Interpretation Comments Platelet Count (test code = 777-3) 347 140-360 [facility] CenterNeutrophils (%) (Auto)2019-04-05 21:38:00 * Test Item Value Reference Range Interpretation Comments Neutrophils (%) (Auto) (test code = 27090-5) 74.4 38.7-80.0 [facility] CenterLymphocytes (%) (Auto)2019-04-05 21:38:00 * Test Item Value Reference Range Interpretation Comments Lymphocytes (%) (Auto) (test code = 736-9) 12.1 18.0-39.1 L [facility] CenterMonocytes (%) (Auto)2019-04-05 21:38:00* Test Item Value Reference Range Interpretation Comments Monocytes (%) (Auto) (test code = 5905-5) 11.6 4.4-11.3 H [facility] CenterEosinophils (%) (Auto)2019-04-05 21:38:00 * Test Item Value Reference Range Interpretation Comments Eosinophils (%) (Auto) (test code = 713-8) 1.3 0.0-6.0 [facility] CenterBasophils (%) (Auto)2019-04-05 21:38:00* Test Item Value Reference Range Interpretation Comments Basophils (%) (Auto) (test code = 706-2) 0.3 0.0-1.0 [facility] CenterIM GRANULOCYTES %2019-04-05 21:38:00* Test Item Value Reference Range Interpretation Comments IM GRANULOCYTES % (test code = IM GRANULOCYTES %) 0.3 0.0- 1.0 [facility] CenterNeutrophils # (Auto)2019-04-05 21:38:00* Test Item Value Reference Range Interpretation Comments Neutrophils # (Auto) (test code = 751-8) 4.7 2.1-6.9 [facility] CenterLymphocytes # (Auto)2019-04-05 21:38:00* Test Item Value Reference Range Interpretation Comments Lymphocytes # (Auto) (test code = 51084-5) 0.8 1.0-3.2 L [facility] CenterMonocytes # (Auto)2019-04-05 21:38:00* Test Item Value Reference Range Interpretation Comments Monocytes # (Auto) (test code = 742-7) 0.7 0.2-0.8 [facility] CenterEosinophils # (Auto)2019-04-05 21:38:00* Test Item Value Reference Range Interpretation Comments Eosinophils # (Auto) (test code = 711-2) 0.1 0.0-0.4 [facility] CenterBasophils # (Auto)2019-04-05 21:38:00* Test Item Value Reference Range Interpretation Comments Basophils # (Auto) (test code = 704-7) 0.0 0.0-0.1 [facility] CenterAbsolute Immature Granulocyte (auto 2019-04-05 21:38:00* Test Item Value Reference Range Interpretation Comments Absolute Immature Granulocyte (auto (carine t code = Absolute Immature Granulocyte (auto) 0.02 0-0.1 [facility] CenterCHEST SINGLE (NOT PORTABLE)2019-04-05 19:12:00 [facility] [address] [address] Patient Name: YARITZA JOSEPH MR #: [id number] : 1960 Age/Sex: 58/F Req #: [id number] Adm Physician: Ordered by: KASRTEN HU NP Report #: [id number] Location: ER Room/Bed: Procedure: [id number] DX/CHEST SINGLE (NOT PORTABLE) Exam Date: Exam Time : REPORT STATUS: Signed Examina tion: Single AP view of the chest. COMPARISON: Portable chest 03/08/2019 INDICATION: Swollen foot IMPRESSION: 1. Lines and Tubes: None 2. Lungs are well-inflated. Central pulmonary venous congestion and mild pe rihilar interstitial edema. Small bilateral pleural effusions and likely assoc iated lower lobe atelectasis.. Findings likely reflect mild fluid overload. 3. Stable prominence of the cardiac silhouette. 4. No acute bony abnormali ties. Signed by: Dr. Dwayne Lira M.D. on 04/05/2019 7:14 PM Di ctated By: DWAYNE LIRA MD 13 COPY TO: EWA HU PRACTICE PHYSICIAN Creatine Kinase [id number] 12:03:00* Test Item Value Reference Range Interpretation Comments Creatine Kinase MB (test code = 85941-0) 0.70 0-5.0 [facility] CenterTroponin I3566-87-54 12:03:00* Test Item Value Reference Range Interpretation Comments Troponin I (test code = IFD2748) 0.009 0-0.300 [facility] Gtknm5519-39-75 11:54:00* Test Item Value Reference Range Interpretation Comments Sodium Level (test code = 2951-2) 137 136-145 [facility] CenterPotassium Gtvfx6138-54-21 11:54:00* Test Item Value Reference Range Interpretation Comments Potassium Level (test code = 2823-3) 4.1 3.5-5.1 [facility] CenterChloride Obxkr7422-71-70 11:54:00* Test Item Value Reference Range Interpretation Comments Chloride Level (test code = 2075-0) 101 98-107 [facility] CenterCarbon Dioxide Hhphg9381-85-71 11:54:00* Test Item Value Reference Range Interpretation Comments Carbon Dioxide Level (test code = 2028-9) 23 22-29 [facility] CenterAnion Lqc5232-89-45 11:54:00* Test Item Value Reference Range Interpretation Comments Anion Gap (test code = 61137-6) 17.1 8-16 H [facility] CenterBlood Urea Tnjxsorv0422-26-20 11:54:00* Test Item Value Reference Range Interpretation Comments Blood Urea Nitrogen (test code = 3094-0) 42 7-26 H [facility] CenterCreatinine2020-01-27 11:54:00* Test Item Value Reference Range Interpretation Comments Creatinine (test code = 2160-0) 6.78 0.57-1.11 H [facility] CenterBUN/Creatinine Bqacj7172-81-43 11:54:00* Test Item Value Reference Range Interpretation Comments BUN/Creatinine Ratio (test code = 3097-3) 6 6-25 [facility] CenterEstimat Glomerular Filtration Rate 2019-03-08 11:54:00* Test Item Value Reference Range Interpretation Comments Estimat Glomerular Filtration Rate (test code = 226659918) 6 >60 L Ranges were taken from the National Kidney Disease Education Program and the [facility] literature.Reference ranges:60 or greater: Gpcmws12-44 ( for 3 consecutive months): Chronic kidney disease 15 or less: Kidney failureMethodist [facility] Medical CenterGlucose Nzfhl4310-34-20 11:54:00* Test Item Value Reference Range Interpretation Comments Glucose Level (test code = JZJ8993) 278 74-118 H [facility] CenterCalcium Bbfcu4106-73-17 11:54:00* Test Item Value Reference Range Interpretation Comments Calcium Level (test code = 80308-4) 9.8 8.4-10.2 [facility] CenterTotal Erznbgeen4056-88-73 11:54:00* Test Item Value Reference Range Interpretation Comments Total Bilirubin (test code = 1975-2) 0.9 0.2-1.2 [facility] CenterAspartate Amino Transf (AST/SGOT) 2019-03-08 11:54:00* Test Item Value Reference Range Interpretation Comments Aspartate Amino Transf (AST/SGOT) (test code = Aspartate Amino Transf (AST/SGOT)) 11 5-34 [facility] CenterAlanine Aminotransferase (ALT/SGPT) 2019-03-08 11:54:00* Test Item Value Reference Range Interpretation Comments Alanine Aminotransferase (ALT/SGPT) (test code = 1742-6) 12 0-55 [facility] CenterTotal Mazxkor1285-04-83 11:54:00* Test Item Value Reference Range Interpretation Comments Total Protein (test code = 2885-2) 6.5 6.5-8.1 [facility] CenterAlbumin2020-01-27 11:54:00* Test Item Value Reference Range Interpretation Comments Albumin (test code = 1751-7) 3.6 3.5-5.0 [facility] CenterGlobulin2020-01-27 11:54:00* Test Item Value Reference Range Interpretation Comments Globulin (test code = 41400-1) 2.9 2.3-3.5 [facility] CenterAlbumin/Globulin Nbwtp4316-94-31 11:54:00 * Test Item Value Reference Range Interpretation Comments Albumin/Globulin Ratio (test code = 1759-0) 1.2 0.8-2.0 [facility] CenterAlkaline Lmqlcimhxmw5013-97-31 11:54:00* Test Item Value Reference Range Interpretation Comments Alkaline Phosphatase (test code = 6768-6) 96 40-150 [facility] CenterCreatine Hrrakh2428-10-67 11:54:00* Test Item Value Reference Range Interpretation Comments Creatine Kinase (test code = 2157-6) 22 29-168 L [facility] CenterWhite Blood Txily0715-37-49 11:41:00* Test Item Value Reference Range Interpretation Comments White Blood Count (test code = 6690-2) 6.43 4.8-10.8 [facility] CenterRed Blood Civdx5185-44-86 11:41:00* Test Item Value Reference Range Interpretation Comments Red Blood Count (test code = 789-8) 3.29 3.6-5.1 L [facility] CenterHemoglobin2020-01-27 11:41:00* Test Item Value Reference Range Interpretation Comments Hemoglobin (test code = 99920-6) 11.0 12.0-16.0 L [facility] CenterHematocrit2020-01-27 11:41:00* Test Item Value Reference Range Interpretation Comments Hematocrit (test code = 4544-3) 32.8 34.2-44.1 L [facility] CenterMean Corpuscular Bbdpbe0426-08-28 11:41:00* Test Item Value Reference Range Interpretation Comments Mean Corpuscular Volume (test code = 787-2) 99.7 81-99 H [facility] CenterMean Corpuscular Nczemxxche1305-42-46 11:41:00* Test Item Value Reference Range Interpretation Comments Mean Corpuscular Hemoglobin (test code = 785-6) 33.4 28-32 H [facility] CenterMean Corpuscular Hemoglobin Concent 2019-03-08 11:41:00* Test Item Value Reference Range Interpretation Comments Mean Corpuscular Hemoglobin Concent (test code = 786-4) 33.5 31-35 [facility] CenterRed Cell Distribution Akpgv9920-04-55 11:41:00* Test Item Value Reference Range Interpretation Comments Red Cell Distribution Width (test code = 19565-2) 15.1 11.7 -14.4 H [facility] CenterPlatelet Cvcnd4132-59-09 11:41:00* Test Item Value Reference Range Interpretation Comments Platelet Count (test code = 777-3) 248 140-360 [facility] CenterNeutrophils (%) (Auto)2019-03-08 11:41:00 * Test Item Value Reference Range Interpretation Comments Neutrophils (%) (Auto) (test code = 90237-9) 77.2 38.7-80.0 [facility] CenterLymphocytes (%) (Auto)2019-03-08 11:41:00 * Test Item Value Reference Range Interpretation Comments Lymphocytes (%) (Auto) (test code = 736-9) 9.0 18.0-39.1 L [facility] CenterMonocytes (%) (Auto)2019-03-08 11:41:00* Test Item Value Reference Range Interpretation Comments Monocytes (%) (Auto) (test code = 5905-5) 12.0 4.4-11.3 H [facility] CenterEosinophils (%) (Auto)2019-03-08 11:41:00 * Test Item Value Reference Range Interpretation Comments Eosinophils (%) (Auto) (test code = 713-8) 1.2 0.0-6.0 [facility] CenterBasophils (%) (Auto)2019-03-08 11:41:00* Test Item Value Reference Range Interpretation Comments Basophils (%) (Auto) (test code = 706-2) 0.3 0.0-1.0 [facility] CenterIM GRANULOCYTES %2019-03-08 11:41:00* Test Item Value Reference Range Interpretation Comments IM GRANULOCYTES % (test code = IM GRANULOCYTES %) 0.3 0.0- 1.0 [facility] CenterNeutrophils # (Auto)2019-03-08 11:41:00* Test Item Value Reference Range Interpretation Comments Neutrophils # (Auto) (test code = 751-8) 5.0 2.1-6.9 [facility] CenterLymphocytes # (Auto)2019-03-08 11:41:00* Test Item Value Reference Range Interpretation Comments Lymphocytes # (Auto) (test code = 48732-3) 0.6 1.0-3.2 L [facility] CenterMonocytes # (Auto)2019-03-08 11:41:00* Test Item Value Reference Range Interpretation Comments Monocytes # (Auto) (test code = 742-7) 0.8 0.2-0.8 [facility] CenterEosinophils # (Auto)2019-03-08 11:41:00* Test Item Value Reference Range Interpretation Comments Eosinophils # (Auto) (test code = 711-2) 0.1 0.0-0.4 [facility] CenterBasophils # (Auto)2019-03-08 11:41:00* Test Item Value Reference Range Interpretation Comments Basophils # (Auto) (test code = 704-7) 0.0 0.0-0.1 [facility] CenterAbsolute Immature Granulocyte (auto 2019-03-08 11:41:00* Test Item Value Reference Range Interpretation Comments Absolute Immature Granulocyte (auto (carine t code = Absolute Immature Granulocyte (auto) 0.02 0-0.1 [facility] CenterCHEST SINGLE (PORTABLE)2019-03-08 11:20:[address] [address] Patient Name: YARITZA JOSEPH MR #: [id number] : 1960 Age/Sex: 58/F Req #: [id number] Adm Physician: Ordered by: HAL BUI DO Report #: [id number] Location: ER Room/Bed: Procedure: [id number] DX/CHEST SINGLE (PORTABLE) Exam Date: 03/08/19 Exam Time: 1105 REPORT STATUS: Signed EXAMINATION: CHEST SINGLE (PORTABLE) INDICATION: Shortness of breath COMPARISON: Chest radiograph 12/21/2018 FINDINGS: LINES/TUB ES:EKG leads overlie the chest. LUNGS:The lungs are mildly hyperinflated. T here is perihilar fullness and indistinctness of the pulmonary vasculature. PLEURA:No pleural effusion or pneumothorax. MEDIASTINUM:Cardiomediastinal silhouette is stably enlarged. BONES/SOFT TISSUES:No acute osseous injury. ABDOMEN:No free air under the diaphragm. IMPRESSION: Interstitial pulmonary edema. Signed by: Varghese Mahajan MD on 03/08/2019 11:21 AM Dictated By: VARGHESE MAHAJAN MD 1121 Transcribed By: FRANCISCO J on 03/08/19 1121 COPY TO: HAL BUI DO CHEST SINGLE (PORTABLE)2018-12-21 08:36:00 [address] [address] Patient Name: YARITZA JOSEPH MR #: [id number] : 1960 Age/Sex: 58/F Req #: [id number] Adm Physician: Ordered by: HAL BUI DO Report #: [id number] Location: ER Room/Bed: Procedure: [id number] DX/CHEST SINGLE (PORTABLE) Exam Date: 12/21/18 Exam Time: 0655 REPORT STATUS: Signed Chest, 1 view, 12/21/2018. History: Shortness of breath. Com parison: 10/27/2018. Findings: The cardiomediastinal silhouette and pulmonar y vasculature are within prominent. Linear opacities are again seen at the raymond g bases. There are no acute osseous or soft tissue abnormalities. Impres tyler: Cardiomegaly, vascular congestion, and bibasilar atelectasis without significant change. Signed by: Sriram Arthur on 12/21/2018 8:37 AM Dictated By: SRIRAM ARTHUR MD 6 COPY TO: Alessia BUI DO Creatine Kinase [id number] 07:14:00* Test Item Value Reference Range Interpretation Comments Creatine Kinase MB (test code = 88558-4) 0.90 0-5.0 [facility] CenterTroponin K0667-20-70 07:14:00* Test Item Value Reference Range Interpretation Comments Troponin I (test code = SPJ0918) < 0.001 0-0.300 [facility]viewodium Mcjhf1503-35-92 07:08:00* Test Item Value Reference Range Interpretation Comments Sodium Level (test code = 2951-2) 137 136-145 [facility] CenterPotassium Ahvvl2016-96-63 07:08:00* Test Item Value Reference Range Interpretation Comments Potassium Level (test code = 2823-3) 5.0 3.5-5.1 [facility] CenterChloride Cltcg1051-32-52 07:08:00* Test Item Value Reference Range Interpretation Comments Chloride Level (test code = 2075-0) 103 98-107 [facility] CenterCarbon Dioxide Qftwo4972-13-80 07:08:00* Test Item Value Reference Range Interpretation Comments Carbon Dioxide Level (test code = 2028-9) 16 22-29 L [facility] CenterAnion Oii4045-62-50 07:08:00* Test Item Value Reference Range Interpretation Comments Anion Gap (test code = 16252-4) 23.0 8-16 H [facility] CenterBlood Urea Iiqyszzf0975-87-57 07:08:00* Test Item Value Reference Range Interpretation Comments Blood Urea Nitrogen (test code = 3094-0) 84 7-26 H [facility] CenterCreatinine2019-11-11 07:08:00* Test Item Value Reference Range Interpretation Comments Creatinine (test code = 2160-0) 8.34 0.57-1.11 H [facility] CenterBUN/Creatinine Xzpuj3411-14-37 07:08:00* Test Item Value Reference Range Interpretation Comments BUN/Creatinine Ratio (test code = 3097-3) 10 6-25 [facility] CenterEstimat Glomerular Filtration Rate 2018-12-21 07:08:00* Test Item Value Reference Range Interpretation Comments Estimat Glomerular Filtration Rate (test code = 134284670) 5 >60 L Ranges were taken from the National Kidney Disease Education Program and the [facility] literature.Reference ranges:60 or greater: Ogxyfi21-77 ( for 3 consecutive months): Chronic kidney disease 15 or less: Kidney failureMethod[facility] Medical CenterGlucose Urpua2185-54-79 07:08:00* Test Item Value Reference Range Interpretation Comments Glucose Level (test code = QEX1276) 216 74-118 H [facility] CenterCalcium Eyrkk7027-27-09 07:08:00* Test Item Value Reference Range Interpretation Comments Calcium Level (test code = 17261-0) 9.8 8.4-10.2 [facility] CenterTotal Bisehmjae5682-85-23 07:08:00* Test Item Value Reference Range Interpretation Comments Total Bilirubin (test code = 1975-2) 0.7 0.2-1.2 [facility] CenterAspartate Amino Transf (AST/SGOT) 2018-12-21 07:08:00* Test Item Value Reference Range Interpretation Comments Aspartate Amino Transf (AST/SGOT) (test code = Aspartate Amino Transf (AST/SGOT)) 15 5-34 [facility] CenterAlanine Aminotransferase (ALT/SGPT) 2018-12-21 07:08:00* Test Item Value Reference Range Interpretation Comments Alanine Aminotransferase (ALT/SGPT) (test code = 1742-6) 14 0-55 [facility] CenterTotal Dlyozsa1712-15-77 07:08:00* Test Item Value Reference Range Interpretation Comments Total Protein (test code = 2885-2) 6.6 6.5-8.1 [facility] CenterAlbumin2019-11-11 07:08:00* Test Item Value Reference Range Interpretation Comments Albumin (test code = 1751-7) 3.7 3.5-5.0 [facility] CenterGlobulin2019-11-11 07:08:00* Test Item Value Reference Range Interpretation Comments Globulin (test code = 00412-2) 2.9 2.3-3.5 [facility] CenterAlbumin/Globulin Dvgfn2905-01-81 07:08:00 * Test Item Value Reference Range Interpretation Comments Albumin/Globulin Ratio (test code = 1759-0) 1.3 0.8-2.0 [facility] CenterAlkaline Nejxcrazaci9077-54-27 07:08:00* Test Item Value Reference Range Interpretation Comments Alkaline Phosphatase (test code = 6768-6) 110 40-150 [facility] CenterB-Type Natriuretic Yimnbul0643-93-91 07:08:00* Test Item Value Reference Range Interpretation Comments B-Type Natriuretic Peptide (test code = 97650-1) 2357.9 0-100 H [facility] CenterCreatine Qfhpzx3260-71-27 07:08:00* Test Item Value Reference Range Interpretation Comments Creatine Kinase (test code = 2157-6) 25 29-168 L [facility] CenterB-Type Natriuretic Pwvfkgn5850-92-18 07:08:00* Test Item Value Reference Range Interpretation Comments B-Type Natriuretic Peptide (test code = 63609-3) 2357.9 0-100 H [facility] CenterWhite Blood Rthoh2817-37-51 06:59:00* Test Item Value Reference Range Interpretation Comments White Blood Count (test code = 6690-2) 8.03 4.8-10.8 [facility] CenterRed Blood Dwexn5635-97-33 06:59:00* Test Item Value Reference Range Interpretation Comments Red Blood Count (test code = 789-8) 3.14 3.6-5.1 L [facility] CenterHemoglobin2019-11-11 06:59:00* Test Item Value Reference Range Interpretation Comments Hemoglobin (test code = 95643-9) 10.7 12.0-16.0 L [facility] CenterHematocrit2019-11-11 06:59:00* Test Item Value Reference Range Interpretation Comments Hematocrit (test code = 4544-3) 31.4 34.2-44.1 L [facility] CenterMean Corpuscular Cytjuw8504-34-99 06:59:00* Test Item Value Reference Range Interpretation Comments Mean Corpuscular Volume (test code = 787-2) 100.0 81-99 H [facility] CenterMean Corpuscular Supuewkmfq1026-41-51 06:59:00* Test Item Value Reference Range Interpretation Comments Mean Corpuscular Hemoglobin (test code = 785-6) 34.1 28-32 H [facility] CenterMean Corpuscular Hemoglobin Concent 2018-12-21 06:59:00* Test Item Value Reference Range Interpretation Comments Mean Corpuscular Hemoglobin Concent (test code = 786-4) 34.1 31-35 [facility] CenterRed Cell Distribution Bmfmw8497-72-59 06:59:00* Test Item Value Reference Range Interpretation Comments Red Cell Distribution Width (test code = 02848-8) 12.9 11.7 -14.4 [facility] CenterPlatelet Jjeqg6800-69-06 06:59:00* Test Item Value Reference Range Interpretation Comments Platelet Count (test code = 777-3) 205 140-360 [facility] CenterNeutrophils (%) (Auto)2018-12-21 06:59:00 * Test Item Value Reference Range Interpretation Comments Neutrophils (%) (Auto) (test code = 18909-5) 71.5 38.7-80.0 [facility] CenterLymphocytes (%) (Auto)2018-12-21 06:59:00 * Test Item Value Reference Range Interpretation Comments Lymphocytes (%) (Auto) (test code = 736-9) 16.1 18.0-39.1 L [facility] CenterMonocytes (%) (Auto)2018-12-21 06:59:00* Test Item Value Reference Range Interpretation Comments Monocytes (%) (Auto) (test code = 5905-5) 10.6 4.4-11.3 [facility] CenterEosinophils (%) (Auto)2018-12-21 06:59:00 * Test Item Value Reference Range Interpretation Comments Eosinophils (%) (Auto) (test code = 713-8) 0.9 0.0-6.0 [facility] CenterBasophils (%) (Auto)2018-12-21 06:59:00* Test Item Value Reference Range Interpretation Comments Basophils (%) (Auto) (test code = 706-2) 0.4 0.0-1.0 [facility] CenterIM GRANULOCYTES %2018-12-21 06:59:00* Test Item Value Reference Range Interpretation Comments IM GRANULOCYTES % (test code = IM GRANULOCYTES %) 0.5 0.0- 1.0 [facility] CenterNeutrophils # (Auto)2018-12-21 06:59:00* Test Item Value Reference Range Interpretation Comments Neutrophils # (Auto) (test code = 751-8) 5.8 2.1-6.9 [facility] CenterLymphocytes # (Auto)2018-12-21 06:59:00* Test Item Value Reference Range Interpretation Comments Lymphocytes # (Auto) (test code = 21515-2) 1.3 1.0-3.2 [facility] CenterMonocytes # (Auto)2018-12-21 06:59:00* Test Item Value Reference Range Interpretation Comments Monocytes # (Auto) (test code = 742-7) 0.9 0.2-0.8 H [facility] CenterEosinophils # (Auto)2018-12-21 06:59:00* Test Item Value Reference Range Interpretation Comments Eosinophils # (Auto) (test code = 711-2) 0.1 0.0-0.4 [facility] CenterBasophils # (Auto)2018-12-21 06:59:00* Test Item Value Reference Range Interpretation Comments Basophils # (Auto) (test code = 704-7) 0.0 0.0-0.1 [facility] CenterAbsolute Immature Granulocyte (auto 2018-12-21 06:59:00* Test Item Value Reference Range Interpretation Comments Absolute Immature Granulocyte (auto (carine t code = Absolute Immature Granulocyte (auto) 0.04 0-0.1 [facility] CenterArtersal[facility] Blood vJ1320-47-50 06:52:00* Test Item Value Reference Range Interpretation Comments Arterial Blood pH (test code = 2744-1) 7.37 7.31-7.41 [facility] CenterArterial Blood Partial Pressure CO2 2018-12-21 06:52:00* Test Item Value Reference Range Interpretation Comments Arterial Blood Partial Pressure CO2 (test code = 2018-09) 25 41-51 L [facility] CenterArterial Blood Partial Pressure O2 2018-12-21 06:52:00* Test Item Value Reference Range Interpretation Comments Arterial Blood Partial Pressure O2 (test code = 2018-) 103 80-105 [facility] CenterArterial Blood TLA78638-34-53 06:52:00* Test Item Value Reference Range Interpretation Comments Arterial Blood HCO3 (test code = 1960-4) 15 23-28 L [facility] CenterArterial Blood Base Ynhcyj6216-16-80 06:52:00* Test Item Value Reference Range Interpretation Comments Arterial Blood Base Excess (test code = 1925-7) -11.0 -2-3 L [facility] CenterArterial Blood Oxygen Saturation 2018-12-21 06:52:00* Test Item Value Reference Range Interpretation Comments Arterial Blood Oxygen Saturation (test code = 2708-6) 98.0 95-98 [facility] CenterFiO22019-11-11 06:52:00* Test Item Value Reference Range Interpretation Comments FiO2 (test code = FiO2) [address] [facility] Blood pU5646-41-23 06:52:00* Test Item Value Reference Range Interpretation Comments Arterial Blood pH (test code = 2744-1) 7.37 7.31-7.41 [facility] CenterArterial Blood Partial Pressure CO2 2018-12-21 06:52:00* Test Item Value Reference Range Interpretation Comments Arterial Blood Partial Pressure CO2 (test code = 2018-8) 25 41-51 L [facility] CenterArterial Blood Partial Pressure O2 2018-12-21 06:52:00* Test Item Value Reference Range Interpretation Comments Arterial Blood Partial Pressure O2 (test code = 2018-09) 103 80-105 [facility] CenterArterial Blood DPX68836-44-82 06:52:00* Test Item Value Reference Range Interpretation Comments Arterial Blood HCO3 (test code = 1960-4) 15 23-28 L [facility] CenterArterial Blood Base Bsuknk7987-66-90 06:52:00* Test Item Value Reference Range Interpretation Comments Arterial Blood Base Excess (test code = 1925-7) -11.0 -2-3 L [facility] CenterArterial Blood Oxygen Saturation 2018-12-21 06:52:00* Test Item Value Reference Range Interpretation Comments Arterial Blood Oxygen Saturation (test code = 2708-6) 98.0 95-98 [facility] CenterFiO22019-11-11 06:52:00* Test Item Value Reference Range Interpretation Comments FiO2 (test code = FiO2) 28 [facility] kC6500-27-10 06:52:00* Test Item Value Reference Range Interpretation Comments Arterial Blood pH (test code = 2744-1) 7.37 7.31-7.41 [facility] CO2 2018-12-21 06:52:00* Test Item Value Reference Range Interpretation Comments Arterial Blood Partial Pressure CO2 (test code = 2018-) 25 41-51 L [facility]Ar[facility] Pressure O2 2018-12-21 06:52:00* Test Item Value Reference Range Interpretation Comments Arterial Blood Partial Pressure O2 (test code = 2018-09) 103 80-105 [facility] CenterAr[facility] Blood [id number] 06:52:00* Test Item Value Reference Range Interpretation Comments Arterial Blood HCO3 (test code = 1960-4) 15 23-28 L [facility] CenterAr[facility] Blood Base Yeydwv1623-82-29 06:52:00* Test Item Value Reference Range Interpretation Comments Arterial Blood Base Excess (test code = 1925-7) -11.0 -2-3 L [facility] CenterAr[facility] Blood Oxygen Saturation 2018-12-21 06:52:00* Test Item Value Reference Range Interpretation Comments Arterial Blood Oxygen Saturation (test code = 2708-6) 98.0 95-98 [facility] CenterFiO22019-11-11 06:52:00* Test Item Value Reference Range Interpretation Comments FiO2 (test code = FiO2) 28 [facility] [id number] 06:52:00* Test Item Value Reference Range Interpretation Comments Arterial Blood pH (test code = 2744-1) 7.37 7.31-7.41 [facility] CenterAr[facility] Partial Pressure CO2 2018-12-21 06:52:00* Test Item Value Reference Range Interpretation Comments Arterial Blood Partial Pressure CO2 (test code = 2018-) 25 41-51 L [facility] CenterAr[facility] Partial Pressure O2 2018-12-21 06:52:00* Test Item Value Reference Range Interpretation Comments Arterial Blood Partial Pressure O2 (test code = 2018-8) 103 80-[address] [facility] Blood [id number] 06:52:00* Test Item Value Reference Range Interpretation Comments Arterial Blood HCO3 (test code = 1960-4) 15 23-[address] [facility] Blood Base Kqfvnb3317-02-99 06:52:00* Test Item Value Reference Range Interpretation Comments Arterial Blood Base Excess (test code = 1925-7) -11.0 -2-3 L [facility] Oxygen Saturation 2018-12-21 06:52:00* Test Item Value Reference Range Interpretation Comments Arterial Blood Oxygen Saturation (test code = 2708-6) 98.0 95-98 [facility] CenterFiO22019-11-11 06:52:00* Test Item Value Reference Range Interpretation Comments FiO2 (test code = FiO2) [address] [facility] Blood [id number] 06:52:00* Test Item Value Reference Range Interpretation Comments Arterial Blood pH (test code = 2744-1) 7.37 7.31-7.41 [facility]Ar[facility] Partial Pressure CO2 2018-12-21 06:52:00* Test Item Value Reference Range Interpretation Comments Arterial Blood Partial Pressure CO2 (test code = 2018-09) 25 41-51 L [facility] CenterAr[facility] Partial Pressure O2 2018-12-21 06:52:00* Test Item Value Reference Range Interpretation Comments Arterial Blood Partial Pressure O2 (test code = 2018-09) 103 80-105 [facility] CenterAr[facility] Blood [id number] 06:52:00* Test Item Value Reference Range Interpretation Comments Arterial Blood HCO3 (test code = 1960-4) 15 23-[address] [facility] Blood Base Lsdpsr6798-73-57 06:52:00* Test Item Value Reference Range Interpretation Comments Arterial Blood Base Excess (test code = 1925-7) -11.0 -2-3 L [facility] CenterAr[facility] Oxygen Saturation 2018-12-21 06:52:00* Test Item Value Reference Range Interpretation Comments Arterial Blood Oxygen Saturation (test code = 2708-6) 98.0 95-98 [facility] CenterFiO22019-11-11 06:52:00* Test Item Value Reference Range Interpretation Comments FiO2 (test code = FiO2) [address] [facility] Blood [id number] 06:52:00* Test Item Value Reference Range Interpretation Comments Arterial Blood pH (test code = 2744-1) 7.37 7.31-7.41 [facility]Ar[facility] Partial Pressure CO2 2018-12-21 06:52:00* Test Item Value Reference Range Interpretation Comments Arterial Blood Partial Pressure CO2 (test code = 2018-09) 25 41-51 L [facility] CenterAr[facility] Blood Partial Pressure O2 2018-12-21 06:52:00* Test Item Value Reference Range Interpretation Comments Arterial Blood Partial Pressure O2 (test code = 2018-09) 103 80-105 [facility] CenterAr[facility] Blood [id number] 06:52:00* Test Item Value Reference Range Interpretation Comments Arterial Blood HCO3 (test code = 1960-4) 15 23-28 L [facility] CenterAr[facility] Blood Base Sselvf7426-59-82 06:52:00* Test Item Value Reference Range Interpretation Comments Arterial Blood Base Excess (test code = 1925-7) -11.0 -2-3 L [facility] CenterAr[facility] Blood Oxygen Saturation 2018-12-21 06:52:00* Test Item Value Reference Range Interpretation Comments Arterial Blood Oxygen Saturation (test code = 2708-6) 98.0 95-98 [facility] CenterFiO22019-11-11 06:52:00* Test Item Value Reference Range Interpretation Comments FiO2 (test code = FiO2) 28 [facility] Tovqnvv1720-30-67 15:21:00* Test Item Value Reference Range Interpretation Comments Blood Culture (test code = 34416100) NO GROWTH AFTER 5 DAYS, FINAL REPORT [facility] Vqfstyy6933-56-00 15:21:00* Test Item Value Reference Range Interpretation Comments Blood Culture (test code = 49945122) NO GROWTH AFTER 5 DAYS, FINAL REPORT [facility] Daykvzk1692-20-88 15:21:00* Test Item Value Reference Range Interpretation Comments Blood Culture (test code = 36257454) NO GROWTH AFTER 5 DAYS, FINAL REPORT [facility] Sqctoao0657-56-25 19:29:00* Test Item Value Reference Range Interpretation Comments Bedside Glucose (test code = 46821-7) 100 70-120 M[id number]ucose 2018-10-30 19:29:00* Test Item Value Reference Range Interpretation Comments Bedside Glucose (test code = 88549-4) 100 70-120 Meter ID: [id number] Glucose 2018-10-30 19:29:00* Test Item Value Reference Range Interpretation Comments Bedside Glucose (test code = 89462-4) 100 70-120 [facility]: [id number] Culture 2018-10-30 15:21:00* Test Item Value Reference Range Interpretation Comments Blood Culture (test code = 21649551) NO GROWTH AFTER 72 HOURS [facility] CenterBedside Turbqqw3229-39-73 11:48:00* Test Item Value Reference Range Interpretation Comments Bedside Glucose (test code = 12508-0) 225 70-120 H Meter ID: [id number] CenterTriglycerides Level 2018-10-29 06:08:00* Test Item Value Reference Range Interpretation Comments Triglycerides Level (test code = 2571-8) 137 0-149 [facility] CenterCholesterol Unfjq5414-64-26 06:08:00* Test Item Value Reference Range Interpretation Comments Cholesterol Level (test code = 2093-3) 191 0-199 Less than 200 mg/dL Low Xepd866 - 239 mg/dL Borderline Lmqk685 m g/dl and greater High Risk [facility] CenterLDL Zyoinolrwkn2850-45-79 06:08:00* Test Item Value Reference Range Interpretation Comments LDL Cholesterol (test code = 2089-1) 87 60-130 [facility] CenterHDL Bpgzjtkoebj7334-20-09 06:08:00* Test Item Value Reference Range Interpretation Comments HDL Cholesterol (test code = 2085-9) 77 40-60 H [facility] CenterCholesterol/HDL Pmiug4950-28-19 06:08:00 * Test Item Value Reference Range Interpretation Comments Cholesterol/HDL Ratio (test code = 9830-1) 2.5 3.0-3.6 L [facility] CenterTriglycerides Iuhtw5818-65-20 06:08:00* Test Item Value Reference Range Interpretation Comments Triglycerides Level (test code = 2571-8) 137 0-149 [facility] CenterCholesterol Uahox3755-31-32 06:08:00* Test Item Value Reference Range Interpretation Comments Cholesterol Level (test code = 2093-3) 191 0-199 Less than 200 mg/dL Low Blvl045 - 239 mg/dL Borderline Oouj992 m g/dl and greater High Risk [facility] CenterLDL Avdnouvqtfd7364-11-75 06:08:00* Test Item Value Reference Range Interpretation Comments LDL Cholesterol (test code = 2089-1) 87 60-130 [facility] Eikeynzvcep1100-07-07 06:08:00* Test Item Value Reference Range Interpretation Comments HDL Cholesterol (test code = 2085-9) 77 40-60 H [facility] CenterCholesterol/HDL Asows9973-44-02 06:08:00 * Test Item Value Reference Range Interpretation Comments Cholesterol/HDL Ratio (test code = 9830-1) 2.5 3.0-3.6 L [facility] CenterTriglycerides Ichwk7591-66-44 06:08:00* Test Item Value Reference Range Interpretation Comments Triglycerides Level (test code = 2571-8) 137 0-149 [facility] CenterCholesterol Cqbln3390-21-34 06:08:00* Test Item Value Reference Range Interpretation Comments Cholesterol Level (test code = 2093-3) 191 0-199 Less than 200 mg/dL Low Zdoh555 - 239 mg/dL Borderline Vgku587 m g/dl and greater High Risk [facility] CenterLDL Syqbircwxdx0685-08-30 06:08:00* Test Item Value Reference Range Interpretation Comments LDL Cholesterol (test code = 2089-1) 87 60-130 [facility] Hogflmuadlu9297-76-03 06:08:00* Test Item Value Reference Range Interpretation Comments HDL Cholesterol (test code = 2085-9) 77 40-60 H [facility] CenterCholesterol/HDL Xpvur5743-70-64 06:08:00 * Test Item Value Reference Range Interpretation Comments Cholesterol/HDL Ratio (test code = 9830-1) 2.5 3.0-3.6 L [facility] CenterTriglycerides Ljkxp2573-46-11 06:08:00* Test Item Value Reference Range Interpretation Comments Triglycerides Level (test code = 2571-8) 137 0-149 [facility] CenterCholesterol Siqcc1786-18-53 06:08:00* Test Item Value Reference Range Interpretation Comments Cholesterol Level (test code = 2093-3) 191 0-199 Less than 200 mg/dL Low Jdkg210 - 239 mg/dL Borderline Ylbk860 m g/dl and greater High Risk [facility] CenterLDL Bwztktepyvq2777-68-59 06:08:00* Test Item Value Reference Range Interpretation Comments LDL Cholesterol (test code = 2089-1) 87 60-130 [facility] Ujamolxcouj9803-06-10 06:08:00* Test Item Value Reference Range Interpretation Comments HDL Cholesterol (test code = 2085-9) 77 40-60 H [facility] CenterCholesterol/HDL Apqmq8957-40-23 06:08:00 * Test Item Value Reference Range Interpretation Comments Cholesterol/HDL Ratio (test code = 9830-1) 2.5 3.0-3.6 L [facility] CenterTriglycerides Jlmkl3199-17-15 06:08:00* Test Item Value Reference Range Interpretation Comments Triglycerides Level (test code = 2571-8) 137 0-149 [facility] CenterCholesterol Qqjfk9780-81-69 06:08:00* Test Item Value Reference Range Interpretation Comments Cholesterol Level (test code = 2093-3) 191 0-199 Less than 200 mg/dL Low Ehwu435 - 239 mg/dL Borderline Zfvy671 m g/dl and greater High Risk [facility] CenterLDL Opjhsjwqbju4980-64-59 06:08:00* Test Item Value Reference Range Interpretation Comments LDL Cholesterol (test code = 2089-1) 87 60-130 [facility] Ufzmxeciabn7749-64-45 06:08:00* Test Item Value Reference Range Interpretation Comments HDL Cholesterol (test code = 2085-9) 77 40-60 H [facility] CenterCholesterol/HDL Tiqyk4430-62-25 06:08:00 * Test Item Value Reference Range Interpretation Comments Cholesterol/HDL Ratio (test code = 9830-1) 2.5 3.0-3.6 L [facility] CenterTriglycerides Genft5827-62-64 06:08:00* Test Item Value Reference Range Interpretation Comments Triglycerides Level (test code = 2571-8) 137 0-149 [facility] CenterCholesterol Avcng2778-17-28 06:08:00* Test Item Value Reference Range Interpretation Comments Cholesterol Level (test code = 2093-3) 191 0-199 Less than 200 mg/dL Low Ozpv120 - 239 mg/dL Borderline Dtcm109 m g/dl and greater High Risk [facility] CenterLDL Upcvmboheau1487-87-60 06:08:00* Test Item Value Reference Range Interpretation Comments LDL Cholesterol (test code = 2089-1) 87 60-130 [facility] CenterHDL Idrerezsybe2339-40-77 06:08:00* Test Item Value Reference Range Interpretation Comments HDL Cholesterol (test code = 2085-9) 77 40-60 H [facility] CenterCholesterol/HDL Olaes0074-11-11 06:08:00 * Test Item Value Reference Range Interpretation Comments Cholesterol/HDL Ratio (test code = 9830-1) 2.5 3.0-3.6 L [facility] CenterTriglycerides Jhjjd0343-94-90 06:08:00* Test Item Value Reference Range Interpretation Comments Triglycerides Level (test code = 2571-8) 137 0-149 [facility] CenterCholesterol Vlutp1953-99-86 06:08:00* Test Item Value Reference Range Interpretation Comments Cholesterol Level (test code = 2093-3) 191 0-199 Less than 200 mg/dL Low Ltfc402 - 239 mg/dL Borderline Rbbf528 m g/dl and greater High Risk [facility] CenterLDL Vgphldggzgo3989-55-16 06:08:00* Test Item Value Reference Range Interpretation Comments LDL Cholesterol (test code = 2089-1) 87 60-130 [facility] CenterHDL Cadkuefkgtp9631-77-92 06:08:00* Test Item Value Reference Range Interpretation Comments HDL Cholesterol (test code = 2085-9) 77 40-60 H [facility] CenterCholesterol/HDL Jfrvj2169-65-91 06:08:00 * Test Item Value Reference Range Interpretation Comments Cholesterol/HDL Ratio (test code = 9830-1) 2.5 3.0-3.6 L [facility] CenterDifferential Total Cells Counted 2018-10-28 08:32:00* Test Item Value Reference Range Interpretation Comments Differential Total Cells Counted (test code = Differen tial Total Cells Counted) 100 [facility] CenterNeutrophils % (Manual)2018-10-28 08:32:00 * Test Item Value Reference Range Interpretation Comments Neutrophils % (Manual) (test code = 69935-6) 67 40-74 [facility] CenterLymphocytes % (Manual)2018-10-28 08:32:00 * Test Item Value Reference Range Interpretation Comments Lymphocytes % (Manual) (test code = 737-7) 17 19-48 L [facility] CenterMonocytes % (Manual)2018-10-28 08:32:00* Test Item Value Reference Range Interpretation Comments Monocytes % (Manual) (test code = 744-3) 13 3.4-9.0 H [facility] CenterEosinophils % (Manual)2018-10-28 08:32:00 * Test Item Value Reference Range Interpretation Comments Eosinophils % (Manual) (test code = 714-6) 3 0-7 [facility] CenterPlatelet Ygltpkcs4704-06-46 08:32:00* Test Item Value Reference Range Interpretation Comments Platelet Estimate (test code = 12834-6) MODERATELY DECREASED [facility] CenterPlatelet Morphology Clitrre2478-36-25 08:32:00* Test Item Value Reference Range Interpretation Comments Platelet Morphology Comment (test code = 18741-2) FEW LARGE [facility] CenterRed Cell Morphology Znqarus5798-63-38 08:32:00* Test Item Value Reference Range Interpretation Comments Red Cell Morphology Comment (test code = 6742-1) NORMAL [facility] CenterDifferential Total Cells Counted 2018-10-28 08:32:00* Test Item Value Reference Range Interpretation Comments Differential Total Cells Counted (test code = Differen tial Total Cells Counted) 100 [facility] CenterNeutrophils % (Manual)2018-10-28 08:32:00 * Test Item Value Reference Range Interpretation Comments Neutrophils % (Manual) (test code = 20544-8) 67 40-74 [facility] CenterLymphocytes % (Manual)2018-10-28 08:32:00 * Test Item Value Reference Range Interpretation Comments Lymphocytes % (Manual) (test code = 737-7) 17 19-48 L [facility] CenterMonocytes % (Manual)2018-10-28 08:32:00* Test Item Value Reference Range Interpretation Comments Monocytes % (Manual) (test code = 744-3) 13 3.4-9.0 H [facility] CenterEosinophils % (Manual)2018-10-28 08:32:00 * Test Item Value Reference Range Interpretation Comments Eosinophils % (Manual) (test code = 714-6) 3 0-7 [facility] CenterPlatelet Vfayrfpt0129-54-21 08:32:00* Test Item Value Reference Range Interpretation Comments Platelet Estimate (test code = 20236-2) MODERATELY DECREASED [facility] CenterPlatelet Morphology Maefeed6879-52-52 08:32:00* Test Item Value Reference Range Interpretation Comments Platelet Morphology Comment (test code = 95046-1) FEW LARGE [facility] CenterRed Cell Morphology Qksgvva9181-69-41 08:32:00* Test Item Value Reference Range Interpretation Comments Red Cell Morphology Comment (test code = 6742-1) NORMAL [facility] CenterDifferential Total Cells Counted 2018-10-28 08:32:00* Test Item Value Reference Range Interpretation Comments Differential Total Cells Counted (test code = Gabby tial Total Cells Counted) 100 [facility] CenterNeutrophils % (Manual)2018-10-28 08:32:00 * Test Item Value Reference Range Interpretation Comments Neutrophils % (Manual) (test code = 31007-2) 67 40-74 [facility] CenterLymphocytes % (Manual)2018-10-28 08:32:00 * Test Item Value Reference Range Interpretation Comments Lymphocytes % (Manual) (test code = 737-7) 17 19-48 L [facility] CenterMonocytes % (Manual)2018-10-28 08:32:00* Test Item Value Reference Range Interpretation Comments Monocytes % (Manual) (test code = 744-3) 13 3.4-9.0 H [facility] CenterEosinophils % (Manual)2018-10-28 08:32:00 * Test Item Value Reference Range Interpretation Comments Eosinophils % (Manual) (test code = 714-6) 3 0-7 [facility] CenterPlatelet Atbtcpxf6319-45-42 08:32:00* Test Item Value Reference Range Interpretation Comments Platelet Estimate (test code = 16917-8) MODERATELY DECREASED [facility] CenterPlatelet Morphology Nplgmjk0515-83-33 08:32:00* Test Item Value Reference Range Interpretation Comments Platelet Morphology Comment (test code = 36471-5) FEW LARGE [facility] CenterRed Cell Morphology Lvnaowu6359-87-14 08:32:00* Test Item Value Reference Range Interpretation Comments Red Cell Morphology Comment (test code = 6742-1) NORMAL [facility] CenterDifferential Total Cells Counted 2018-10-28 08:32:00* Test Item Value Reference Range Interpretation Comments Differential Total Cells Counted (test code = Differnandini tial Total Cells Counted) 100 [facility] CenterNeutrophils % (Manual)2018-10-28 08:32:00 * Test Item Value Reference Range Interpretation Comments Neutrophils % (Manual) (test code = 60567-9) 67 40-74 [facility] CenterLymphocytes % (Manual)2018-10-28 08:32:00 * Test Item Value Reference Range Interpretation Comments Lymphocytes % (Manual) (test code = 737-7) 17 19-48 L [facility] CenterMonocytes % (Manual)2018-10-28 08:32:00* Test Item Value Reference Range Interpretation Comments Monocytes % (Manual) (test code = 744-3) 13 3.4-9.0 H [facility] CenterEosinophils % (Manual)2018-10-28 08:32:00 * Test Item Value Reference Range Interpretation Comments Eosinophils % (Manual) (test code = 714-6) 3 0-7 [facility] CenterPlatelet Kyfozezr2234-15-12 08:32:00* Test Item Value Reference Range Interpretation Comments Platelet Estimate (test code = 79369-7) MODERATELY DECREASED [facility] CenterPlatelet Morphology Bftssup1384-50-01 08:32:00* Test Item Value Reference Range Interpretation Comments Platelet Morphology Comment (test code = 43744-8) FEW LARGE [facility] CenterRed Cell Morphology Eqkdesg9314-14-79 08:32:00* Test Item Value Reference Range Interpretation Comments Red Cell Morphology Comment (test code = 6742-1) NORMAL [facility] CenterDifferential Total Cells Counted 2018-10-28 08:32:00* Test Item Value Reference Range Interpretation Comments Differential Total Cells Counted (test code = Differen tial Total Cells Counted) 100 [facility] CenterNeutrophils % (Manual)2018-10-28 08:32:00 * Test Item Value Reference Range Interpretation Comments Neutrophils % (Manual) (test code = 63703-4) 67 40-74 [facility] CenterLymphocytes % (Manual)2018-10-28 08:32:00 * Test Item Value Reference Range Interpretation Comments Lymphocytes % (Manual) (test code = 737-7) 17 19-48 L [facility] CenterMonocytes % (Manual)2018-10-28 08:32:00* Test Item Value Reference Range Interpretation Comments Monocytes % (Manual) (test code = 744-3) 13 3.4-9.0 H [facility] CenterEosinophils % (Manual)2018-10-28 08:32:00 * Test Item Value Reference Range Interpretation Comments Eosinophils % (Manual) (test code = 714-6) 3 0-7 [facility] CenterPlatelet Jycreoxb3445-93-14 08:32:00* Test Item Value Reference Range Interpretation Comments Platelet Estimate (test code = 12609-8) MODERATELY DECREASED [facility] CenterPlatelet Morphology Zxlsyrg3965-22-19 08:32:00* Test Item Value Reference Range Interpretation Comments Platelet Morphology Comment (test code = 54365-1) FEW LARGE [facility] CenterRed Cell Morphology Kfglbjs6176-02-32 08:32:00* Test Item Value Reference Range Interpretation Comments Red Cell Morphology Comment (test code = 6742-1) NORMAL [facility] CenterDifferential Total Cells Counted 2018-10-28 08:32:00* Test Item Value Reference Range Interpretation Comments Differential Total Cells Counted (test code = Differen tial Total Cells Counted) 100 [facility] CenterNeutrophils % (Manual)2018-10-28 08:32:00 * Test Item Value Reference Range Interpretation Comments Neutrophils % (Manual) (test code = 14308-5) 67 40-74 [facility] CenterLymphocytes % (Manual)2018-10-28 08:32:00 * Test Item Value Reference Range Interpretation Comments Lymphocytes % (Manual) (test code = 737-7) 17 19-48 L [facility] CenterMonocytes % (Manual)2018-10-28 08:32:00* Test Item Value Reference Range Interpretation Comments Monocytes % (Manual) (test code = 744-3) 13 3.4-9.0 H [facility] CenterEosinophils % (Manual)2018-10-28 08:32:00 * Test Item Value Reference Range Interpretation Comments Eosinophils % (Manual) (test code = 714-6) 3 0-7 [facility] CenterPlatelet Nqhmwbme1924-15-40 08:32:00* Test Item Value Reference Range Interpretation Comments Platelet Estimate (test code = 59380-4) MODERATELY DECREASED [facility] CenterPlatelet Morphology Colmqth9654-78-17 08:32:00* Test Item Value Reference Range Interpretation Comments Platelet Morphology Comment (test code = 27898-4) FEW LARGE [facility] CenterRed Cell Morphology Amjvdgq1921-50-27 08:32:00* Test Item Value Reference Range Interpretation Comments Red Cell Morphology Comment (test code = 6742-1) NORMAL [facility] CenterDifferential Total Cells Counted 2018-10-28 08:32:00* Test Item Value Reference Range Interpretation Comments Differential Total Cells Counted (test code = Differen tial Total Cells Counted) 100 [facility] CenterNeutrophils % (Manual)2018-10-28 08:32:00 * Test Item Value Reference Range Interpretation Comments Neutrophils % (Manual) (test code = 10888-9) 67 40-74 [facility] CenterLymphocytes % (Manual)2018-10-28 08:32:00 * Test Item Value Reference Range Interpretation Comments Lymphocytes % (Manual) (test code = 737-7) 17 19-48 L [facility] CenterMonocytes % (Manual)2018-10-28 08:32:00* Test Item Value Reference Range Interpretation Comments Monocytes % (Manual) (test code = 744-3) 13 3.4-9.0 H [facility] CenterEosinophils % (Manual)2018-10-28 08:32:00 * Test Item Value Reference Range Interpretation Comments Eosinophils % (Manual) (test code = 714-6) 3 0-7 [facility] CenterPlatelet Txsxsxna4472-51-39 08:32:00* Test Item Value Reference Range Interpretation Comments Platelet Estimate (test code = 68046-0) MODERATELY DECREASED [facility] CenterPlatelet Morphology Tdemtrl4817-88-24 08:32:00* Test Item Value Reference Range Interpretation Comments Platelet Morphology Comment (test code = 15296-1) FEW LARGE [facility] CenterRed Cell Morphology Sjbwzbd0789-78-06 08:32:00* Test Item Value Reference Range Interpretation Comments Red Cell Morphology Comment (test code = 6742-1) NORMAL [facility] Gdaix1650-02-16 06:22:00* Test Item Value Reference Range Interpretation Comments Sodium Level (test code = 2951-2) 137 136-145 [facility] CenterPotassium Xnavl7288-31-44 06:22:00* Test Item Value Reference Range Interpretation Comments Potassium Level (test code = 2823-3) 4.9 3.5-5.1 [facility] CenterChloride Mmohj9195-79-66 06:22:00* Test Item Value Reference Range Interpretation Comments Chloride Level (test code = 2075-0) 96 98-107 L [facility] CenterCarbon Dioxide Jxtng5225-79-13 06:22:00* Test Item Value Reference Range Interpretation Comments Carbon Dioxide Level (test code = 2028-9) 22 22-29 [facility] CenterAnion Ayw4389-08-34 06:22:00* Test Item Value Reference Range Interpretation Comments Anion Gap (test code = 01814-4) 23.9 8-16 H [facility] CenterBlood Urea Nayqmixn7874-68-55 06:22:00* Test Item Value Reference Range Interpretation Comments Blood Urea Nitrogen (test code = 3094-0) 56 7-26 H [facility] CenterCreatinine2019-09-18 06:22:00* Test Item Value Reference Range Interpretation Comments Creatinine (test code = 2160-0) 6.60 0.57-1.11 H [facility] CenterBUN/Creatinine Wzlud7040-04-57 06:22:00* Test Item Value Reference Range Interpretation Comments BUN/Creatinine Ratio (test code = 3097-3) 8 6-25 [facility] CenterEstimat Glomerular Filtration Rate 2018-10-28 06:22:00* Test Item Value Reference Range Interpretation Comments Estimat Glomerular Filtration Rate (test code = 868249155) 6 >60 L Ranges were taken from the National Kidney Disease Education Program and the [facility] Kidney Foundation literature.Reference ranges:60 or greater: Hqdilk45-75 ( for 3 consecutive months): Chronic kidney disease 15 or less: Kidney failureMethodist Richardson Medical CenterGlucose Gjqab7514-21-22 06:22:00* Test Item Value Reference Range Interpretation Comments Glucose Level (test code = WWH8109) 341 74-118 H [facility] CenterCalcium Yxwbm8740-10-26 06:22:00* Test Item Value Reference Range Interpretation Comments Calcium Level (test code = 33541-5) 10.1 8.4-10.2 [facility] CenterCreatine Kinase JA5430-07-80 06:10:00* Test Item Value Reference Range Interpretation Comments Creatine Kinase MB (test code = 55370-8) 5.10 0-5.0 H [facility] CenterTroponin Q1352-97-13 06:10:00* Test Item Value Reference Range Interpretation Comments Troponin I (test code = HDQ7359) 1.339 0-0.300 H Elevated result called to Kvng Webb/CHARANJIT at 0608 on 10/28/18 by Tyler riderMethodist [facility] Medical CenterCreatine Aibqnt4935-21-98 05:48:00* Test Item Value Reference Range Interpretation Comments Creatine Kinase (test code = 2157-6) 41 29-168 [facility] CenterWhite Blood Rfibw8132-26-83 05:43:00* Test Item Value Reference Range Interpretation Comments White Blood Count (test code = 6690-2) 6.31 4.8-10.8 [facility] CenterRed Blood Seeew8004-87-11 05:43:00* Test Item Value Reference Range Interpretation Comments Red Blood Count (test code = 789-8) 3.07 3.6-5.1 L [facility] CenterHemoglobin2019-09-18 05:43:00* Test Item Value Reference Range Interpretation Comments Hemoglobin (test code = 28458-6) 10.3 12.0-16.0 L [facility] CenterHematocrit2019-09-18 05:43:00* Test Item Value Reference Range Interpretation Comments Hematocrit (test code = 4544-3) 31.0 34.2-44.1 L [facility] CenterMean Corpuscular Rohsxm2733-45-35 05:43:00* Test Item Value Reference Range Interpretation Comments Mean Corpuscular Volume (test code = 787-2) 101.0 81-99 H [facility] CenterMean Corpuscular Jcrsboqltr0358-01-31 05:43:00* Test Item Value Reference Range Interpretation Comments Mean Corpuscular Hemoglobin (test code = 785-6) 33.6 28-32 H [facility] CenterMean Corpuscular Hemoglobin Concent 2018-10-28 05:43:00* Test Item Value Reference Range Interpretation Comments Mean Corpuscular Hemoglobin Concent (test code = 786-4) 33.2 31-35 [facility] CenterRed Cell Distribution Vomam3464-68-49 05:43:00* Test Item Value Reference Range Interpretation Comments Red Cell Distribution Width (test code = 22249-5) 13.8 11.7 -14.4 [facility] CenterPlatelet Pndma3200-38-94 05:43:00* Test Item Value Reference Range Interpretation Comments Platelet Count (test code = 777-3) 199 140-360 [facility] CenterNeutrophils (%) (Auto)2018-10-28 05:43:00 * Test Item Value Reference Range Interpretation Comments Neutrophils (%) (Auto) (test code = 27337-0) 72.4 38.7-80.0 [facility] CenterLymphocytes (%) (Auto)2018-10-28 05:43:00 * Test Item Value Reference Range Interpretation Comments Lymphocytes (%) (Auto) (test code = 736-9) 10.0 18.0-39.1 L [facility] CenterMonocytes (%) (Auto)2018-10-28 05:43:00* Test Item Value Reference Range Interpretation Comments Monocytes (%) (Auto) (test code = 5905-5) 13.9 4.4-11.3 H [facility] CenterEosinophils (%) (Auto)2018-10-28 05:43:00 * Test Item Value Reference Range Interpretation Comments Eosinophils (%) (Auto) (test code = 713-8) 2.9 0.0-6.0 [facility] CenterBasophils (%) (Auto)2018-10-28 05:43:00* Test Item Value Reference Range Interpretation Comments Basophils (%) (Auto) (test code = 706-2) 0.3 0.0-1.0 [facility] CenterIM GRANULOCYTES %2018-10-28 05:43:00* Test Item Value Reference Range Interpretation Comments IM GRANULOCYTES % (test code = IM GRANULOCYTES %) 0.5 0.0- 1.0 [facility] CenterNeutrophils # (Auto)2018-10-28 05:43:00* Test Item Value Reference Range Interpretation Comments Neutrophils # (Auto) (test code = 751-8) 4.6 2.1-6.9 [facility] CenterLymphocytes # (Auto)2018-10-28 05:43:00* Test Item Value Reference Range Interpretation Comments Lymphocytes # (Auto) (test code = 29983-7) 0.6 1.0-3.2 L [facility] CenterMonocytes # (Auto)2018-10-28 05:43:00* Test Item Value Reference Range Interpretation Comments Monocytes # (Auto) (test code = 742-7) 0.9 0.2-0.8 H [facility] CenterEosinophils # (Auto)2018-10-28 05:43:00* Test Item Value Reference Range Interpretation Comments Eosinophils # (Auto) (test code = 711-2) 0.2 0.0-0.4 [facility] CenterBasophils # (Auto)2018-10-28 05:43:00* Test Item Value Reference Range Interpretation Comments Basophils # (Auto) (test code = 704-7) 0.0 0.0-0.1 [facility] CenterAbsolute Immature Granulocyte (auto 2018-10-28 05:43:00* Test Item Value Reference Range Interpretation Comments Absolute Immature Granulocyte (auto (carine t code = Absolute Immature Granulocyte (auto) 0.03 0-0.1 [facility] CenterLactic Acid Mlwne6364-14-80 18:39:00* Test Item Value Reference Range Interpretation Comments Lactic Acid Level (test code = Lactic Acid Level) 9.5 4.5- 19.8 [facility] CenterLactic Acid Aluri8266-66-54 18:39:00* Test Item Value Reference Range Interpretation Comments Lactic Acid Level (test code = Lactic Acid Level) 9.5 4.5- 19.8 [facility] CenterLactic Acid Vudui0032-52-54 18:39:00* Test Item Value Reference Range Interpretation Comments Lactic Acid Level (test code = Lactic Acid Level) 9.5 4.5- 19.8 [facility] CenterLactic Acid Raadq9242-02-53 18:39:00* Test Item Value Reference Range Interpretation Comments Lactic Acid Level (test code = Lactic Acid Level) 9.5 4.5- 19.8 [facility] CenterArterial Blood rB3788-84-80 13:58:00* Test Item Value Reference Range Interpretation Comments Arterial Blood pH (test code = 2744-1) 7.32 7.31-7.41 [facility] CenterArterial Blood Partial Pressure CO2 2018-10-27 13:58:00* Test Item Value Reference Range Interpretation Comments Arterial Blood Partial Pressure CO2 (test code = 2018-09) 30 41-51 L [facility] CenterArterial Blood Partial Pressure O2 2018-10-27 13:58:00* Test Item Value Reference Range Interpretation Comments Arterial Blood Partial Pressure O2 (test code = 2018-09) 110 80-105 H [facility] CenterArterial Blood ECV47017-66-00 13:58:00* Test Item Value Reference Range Interpretation Comments Arterial Blood HCO3 (test code = 1960-4) 15 23-28 L [facility] CenterArterial Blood Base Mooomw5884-12-37 13:58:00* Test Item Value Reference Range Interpretation Comments Arterial Blood Base Excess (test code = 1925-7) -11.0 -2-3 L [facility] CenterArterial Blood Oxygen Saturation 2018-10-27 13:58:00* Test Item Value Reference Range Interpretation Comments Arterial Blood Oxygen Saturation (test code = 2708-6) 98.0 95-98 [facility] CenterFiO22019-09-17 13:58:00* Test Item Value Reference Range Interpretation Comments FiO2 (test code = FiO2) 40 Pt was on 40% Bipap 10/5/R/12/40% when ABG was drawnMethodist Richardson Medical CenterB-Type Natriuretic Gbsnjlg0603-95-80 12:17:00* Test Item Value Reference Range Interpretation Comments B-Type Natriuretic Peptide (test code = 53617-2) 2390.1 0-100 H [facility] CenterTotal Zyslwnyin3602-33-63 11:51:00* Test Item Value Reference Range Interpretation Comments Total Bilirubin (test code = 1975-2) 0.6 0.2-1.2 [facility] CenterAspartate Amino Transf (AST/SGOT) 2018-10-27 11:51:00* Test Item Value Reference Range Interpretation Comments Aspartate Amino Transf (AST/SGOT) (test code = Aspartate Amino Transf (AST/SGOT)) 17 5-34 [facility] CenterAlanine Aminotransferase (ALT/SGPT) 2018-10-27 11:51:00* Test Item Value Reference Range Interpretation Comments Alanine Aminotransferase (ALT/SGPT) (test code = 1742-6) 27 0-55 [facility] CenterTotal Ozzneuu0377-68-78 11:51:00* Test Item Value Reference Range Interpretation Comments Total Protein (test code = 2885-2) 6.3 6.5-8.1 L [facility] CenterAlbumin2019-09-17 11:51:00* Test Item Value Reference Range Interpretation Comments Albumin (test code = 1751-7) 3.2 3.5-5.0 L [facility] CenterGlobulin2019-09-17 11:51:00* Test Item Value Reference Range Interpretation Comments Globulin (test code = 42692-4) 3.1 2.3-3.5 [facility] CenterAlbumin/Globulin Ydfsf8676-60-12 11:51:00 * Test Item Value Reference Range Interpretation Comments Albumin/Globulin Ratio (test code = 1759-0) 1.0 0.8-2.0 [facility] CenterAlkaline Iewewmlpxxc3790-39-37 11:51:00* Test Item Value Reference Range Interpretation Comments Alkaline Phosphatase (test code = 6768-6) 116 40-150 [facility] CenterCHEST SINGLE (PORTABLE)2018-10-27 11:26:00 [facility] [address] [place] [address] Patient Name: YARITZA JOSEPH MR #: [id number] : 1960 Age/Sex: 58/F Req #: [id number] Adm Physician: Ordered by: ADIN SCOTT MD Report #: [id number] Location: ER Room/Bed: Procedure: DX/CHEST SINGLE (PORTABLE) Exam Date: 10/27/18 Exam Time: 1100 REPORT STATUS: Signed Chest, 1 view, 10/27/2018. History: Shortness of breath. Ramiro rison: 03/23/2018. Findings: The cardiomediastinal silhouette and pulmonary vasculature are mild prominent. Linear opacities are present in the lower lung zones. There is no focal consolidation or effusion. There are no acute osseous or soft tissue abnormalities. Impression: Cardiovascular with pulmo nary vascular congestion and bilateral atelectasis. Signed by: Sriram monteiro on 10/27/2018 11:28 AM Dictated By: SRIRAM ARTHUR MD Electronically Si gned By: SRIRAM ARTHUR MD on 10/27/18 112 Transcribed By: FRANCISCO J on 10/27/18 1128 COPY TO: ADIN SCOTT MD CHEST SINGLE (PORTABLE) 2018-03-23 07:39:00 [place] [address] Patient Name: YARITZA JOSEPH MR #: [id number] : 1960 Age/Sex: 57/F Req #: [id number] Adm Physician: Ordered by: NAFISA LARES MD Report #: [id number] Location: ER Room/Bed: Procedure: 021- 0014 DX/CHEST SINGLE (PORTABLE) Exam Date: 03/23/18 Exam Time: 0650 REPORT STATUS: Sign ed EXAMINATION: CHEST SINGLE (PORTABLE) INDICATION: Shortness of br eath. COMPARISON: Chest radiograph 07/10/2017. FINDINGS: TUBE S and LINES: None. LUNGS: Lungs are well inflated. There is no evidence of pneumonia or pulmonary edema. Linear subsegmental atelectasis in the right midlung. Mild patchy opacities at the lung bases. PLEURA: No pleural eff usion or pneumothorax. HEART AND MEDIASTINUM: The cardiomediastinal silho uette is unchanged with mild cardiomegaly. Central vascular congestion without evidence of pulmonary edema. Prominence of the bilateral pulmonary arteries, suggestive of pulmonary arterial hypertension. BONES AND SOFT TISSUES: N o acute osseous abnormality. Degenerative changes of the lower thoracic spine. UPPER ABDOMEN: No free air under the diaphragm. IMPRESSION: Ca rdiomegaly and central venous congestion without evidence of pulmonary edema. Mild patchy bibasilar opacities, likely atelectasis. Signed by: Dr. Graciela Alfred MD on 03/23/2018 7:44 AM Dictated By: GUSTAVO ALFRED MD Electronicall y Signed By: GUSTAVO ALFRED MD on 03/23/1844 Transcribed By: FRANCISCO J on 03/23/1844 COPY TO: NAFISA LARES MD Creatine Kinase MB 2018-03-23 07:26:00* Test Item Value Reference Range Interpretation Comments Creatine Kinase MB (test code = 62535-3) 1.40 0-5.0 [facility] CenterTroponin L4590-29-63 07:26:00* Test Item Value Reference Range Interpretation Comments Troponin I (test code = JMY9423) 0.027 0-0.300 [facility] CenterB-Type Natriuretic Qtfiqjo1487-85-13 07:25:00* Test Item Value Reference Range Interpretation Comments B-Type Natriuretic Peptide (test code = 71434-2) 1459.7 0-100 [facility]viewodium Knycn4508-60-72 07:20:00* Test Item Value Reference Range Interpretation Comments Sodium Level (test code = 2951-2) 138 136-145 [facility] CenterPotassium Njplc8444-95-54 07:20:00* Test Item Value Reference Range Interpretation Comments Potassium Level (test code = 2823-3) 4.3 3.5-5.1 [facility] CenterChloride Yecwz6786-93-96 07:20:00* Test Item Value Reference Range Interpretation Comments Chloride Level (test code = 2075-0) 106 98-107 [facility] CenterCarbon Dioxide Wxapv8046-71-26 07:20:00* Test Item Value Reference Range Interpretation Comments Carbon Dioxide Level (test code = 2028-9) 17 22-29 L [facility] CenterAnion Vhs5669-14-50 07:20:00* Test Item Value Reference Range Interpretation Comments Anion Gap (test code = 72737-9) 19.3 8-16 H [facility] CenterBlood Urea Tiiocdwn3432-83-16 07:20:00* Test Item Value Reference Range Interpretation Comments Blood Urea Nitrogen (test code = 3094-0) 61 7-26 H [facility] CenterCreatinine2019-02-11 07:20:00* Test Item Value Reference Range Interpretation Comments Creatinine (test code = 2160-0) 8.13 0.57-1.11 H [facility] CenterBUN/Creatinine Durst5366-65-44 07:20:00* Test Item Value Reference Range Interpretation Comments BUN/Creatinine Ratio (test code = 3097-3) 8 6-25 [facility] CenterEstimat Glomerular Filtration Rate 2018-03-23 07:20:00* Test Item Value Reference Range Interpretation Comments Estimat Glomerular Filtration Rate (test code = 380775621) 5 >60 L Ranges were taken from the National Kidney Disease Education Program and the [facility] Kid[facility] Foundation literature.Reference ranges:60 or greater: Mhrbbe25-64 ( for 3 consecutive months): Chronic kidney disease 15 or less: Kidney failureMethodist [facility] Medical CenterGlucose Jbuwq5324-21-70 07:20:00* Test Item Value Reference Range Interpretation Comments Glucose Level (test code = XJR7238) 197 74-118 H [facility] CenterCalcium Ewmgp6081-82-14 07:20:00* Test Item Value Reference Range Interpretation Comments Calcium Level (test code = 91724-5) 9.0 8.4-10.2 [facility] CenterTotal Ljwwuxwvx1177-19-94 07:20:00* Test Item Value Reference Range Interpretation Comments Total Bilirubin (test code = 1975-2) 0.7 0.2-1.2 [facility] CenterAspartate Amino Transf (AST/SGOT) 2018-03-23 07:20:00* Test Item Value Reference Range Interpretation Comments Aspartate Amino Transf (AST/SGOT) (test code = Aspartate Amino Transf (AST/SGOT)) 16 5-34 [facility] CenterAlanine Aminotransferase (ALT/SGPT) 2018-03-23 07:20:00* Test Item Value Reference Range Interpretation Comments Alanine Aminotransferase (ALT/SGPT) (test code = 1742-6) 20 0-55 [facility] Halrtki3309-10-72 07:20:00* Test Item Value Reference Range Interpretation Comments Total Protein (test code = 2885-2) 6.5 6.5-8.1 [facility] CenterAlbumin2019-02-11 07:20:00* Test Item Value Reference Range Interpretation Comments Albumin (test code = 1751-7) 3.6 3.5-5.0 [facility] CenterGlobulin2019-02-11 07:20:00* Test Item Value Reference Range Interpretation Comments Globulin (test code = 87405-6) 2.9 2.3-3.5 [facility] CenterAlbumin/Globulin Lijgd8125-30-92 07:20:00 * Test Item Value Reference Range Interpretation Comments Albumin/Globulin Ratio (test code = 1759-0) 1.2 0.8-2.0 [facility] CenterAlkaline Jnntrbkhilp6967-51-05 07:20:00* Test Item Value Reference Range Interpretation Comments Alkaline Phosphatase (test code = 6768-6) 81 40-150 [facility] CenterCreatine Wcxgah8486-06-84 07:20:00* Test Item Value Reference Range Interpretation Comments Creatine Kinase (test code = 2157-6) 28 29-168 L [facility] CenterWhite Blood Hdxvc1877-26-50 06:57:00* Test Item Value Reference Range Interpretation Comments White Blood Count (test code = 6690-2) 7.69 4.8-10.8 [facility] CenterRed Blood Tbram7735-66-19 06:57:00* Test Item Value Reference Range Interpretation Comments Red Blood Count (test code = 789-8) 3.14 3.6-5.1 L [facility] CenterHemoglobin2019-02-11 06:57:00* Test Item Value Reference Range Interpretation Comments Hemoglobin (test code = 90792-4) 10.2 12.0-16.0 L [facility] CenterHematocrit2019-02-11 06:57:00* Test Item Value Reference Range Interpretation Comments Hematocrit (test code = 4544-3) 31.3 34.2-44.1 L [facility] CenterMean Corpuscular Fcxnlm7012-92-88 06:57:00* Test Item Value Reference Range Interpretation Comments Mean Corpuscular Volume (test code = 787-2) 99.7 81-99 H [facility] CenterMean Corpuscular Cqmlgltpme4995-37-15 06:57:00* Test Item Value Reference Range Interpretation Comments Mean Corpuscular Hemoglobin (test code = 785-6) 32.5 28-32 H [facility] CenterMean Corpuscular Hemoglobin Concent 2018-03-23 06:57:00* Test Item Value Reference Range Interpretation Comments Mean Corpuscular Hemoglobin Concent (test code = 786-4) 32.6 31-35 [facility] CenterRed Cell Distribution Osmth2639-26-91 06:57:00* Test Item Value Reference Range Interpretation Comments Red Cell Distribution Width (test code = 67592-1) 14.2 11.7 -14.4 [facility] CenterPlatelet Ewxpz8471-68-99 06:57:00* Test Item Value Reference Range Interpretation Comments Platelet Count (test code = 777-3) 222 140-360 [facility] CenterNeutrophils (%) (Auto)2018-03-23 06:57:00 * Test Item Value Reference Range Interpretation Comments Neutrophils (%) (Auto) (test code = 31462-0) 73.6 38.7-80.0 [facility] CenterLymphocytes (%) (Auto)2018-03-23 06:57:00 * Test Item Value Reference Range Interpretation Comments Lymphocytes (%) (Auto) (test code = 736-9) 13.8 18.0-39.1 L [facility] CenterMonocytes (%) (Auto)2018-03-23 06:57:00* Test Item Value Reference Range Interpretation Comments Monocytes (%) (Auto) (test code = 5905-5) 10.0 4.4-11.3 [facility] CenterEosinophils (%) (Auto)2018-03-23 06:57:00 * Test Item Value Reference Range Interpretation Comments Eosinophils (%) (Auto) (test code = 713-8) 1.8 0.0-6.0 [facility] CenterBasophils (%) (Auto)2018-03-23 06:57:00* Test Item Value Reference Range Interpretation Comments Basophils (%) (Auto) (test code = 706-2) 0.4 0.0-1.0 [facility] CenterIM GRANULOCYTES %2018-03-23 06:57:00* Test Item Value Reference Range Interpretation Comments IM GRANULOCYTES % (test code = IM GRANULOCYTES %) 0.4 0.0- 1.0 [facility] CenterNeutrophils # (Auto)2018-03-23 06:57:00* Test Item Value Reference Range Interpretation Comments Neutrophils # (Auto) (test code = 751-8) 5.7 2.1-6.9 [facility] CenterLymphocytes # (Auto)2018-03-23 06:57:00* Test Item Value Reference Range Interpretation Comments Lymphocytes # (Auto) (test code = 10052-5) 1.1 1.0-3.2 [facility] CenterMonocytes # (Auto)2018-03-23 06:57:00* Test Item Value Reference Range Interpretation Comments Monocytes # (Auto) (test code = 742-7) 0.8 0.2-0.8 [facility] CenterEosinophils # (Auto)2018-03-23 06:57:00* Test Item Value Reference Range Interpretation Comments Eosinophils # (Auto) (test code = 711-2) 0.1 0.0-0.4 [facility] CenterBasophils # (Auto)2018-03-23 06:57:00* Test Item Value Reference Range Interpretation Comments Basophils # (Auto) (test code = 704-7) 0.0 0.0-0.1 [facility] CenterAbsolute Immature Granulocyte (auto 2018-03-23 06:57:00* Test Item Value Reference Range Interpretation Comments Absolute Immature Granulocyte (auto (carine t code = Absolute Immature Granulocyte (auto) 0.03 0-0.1 [facility] Dosdinj2302-66-01 10:25:00* Test Item Value Reference Range Interpretation Comments Blood Culture (test code = 600-7) Organism: STAPH HOMINIS SUB HOMIN IS [facility] Kiuwqfk8799-91-88 18:05:00* Test Item Value Reference Range Interpretation Comments Blood Culture (test code = 96457412) NO GROWTH AFTER 5 DAYS, FINAL REPORT [facility] Oipggqm1182-32-66 15:36:00* Test Item Value Reference Range Interpretation Comments Bedside Glucose (test code = 59217-5) 100 70-120 Meter ID: [id number] [facility] Glucose 2017-07-16 15:36:00* Test Item Value Reference Range Interpretation Comments Bedside Glucose (test code = 16956-8) 100 70-120 Meter ID: [id number] Richardson Medical CenterHelanterman [facility] A IgM Pulumdzx9323-08-00 10:01:00* Test Item Value Reference Range Interpretation Comments Hepatitis A IgM Antibody (test code = 80531-0) Negative [facility] B Surface Qadgetv8674-90-37 10:01:00* Test Item Value Reference Range Interpretation Comments Hepatitis B Surface Antigen (test code = 5196-1) Negative [facility] B Core IgM Golvlesn4851-19-13 10:01:00* Test Item Value Reference Range Interpretation Comments Hepatitis B Core IgM Antibody (test code = 88242-3) Negative [facility] C Vmgewdas6903-25-94 10:01:00* Test Item Value Reference Range Interpretation Comments Hepatitis C Antibody (test code = 37048-8) -0.1 Reference Range: 0.0 - 0.9 s/co ratioNegative: < 0.8Indeterminate: 0.8 - 0.9Positive: > 0.9The CDC recommends that a positive HCV antibody resultbe followed up with a HCV Nucleic Acid Amplificationtest (699077).[facility] [address] [address]Nxp: Edmond Mcneil MDFor inquiries, the physician may contact Branch: [phone] Lab: [phone] IgM Nraywkin1944-98-87 10:01:00* Test Item Value Reference Range Interpretation Comments Hepatitis A IgM Antibody (test code = 27037-0) Negative [facility] B Surface Dixctdx6894-23-18 10:01:00* Test Item Value Reference Range Interpretation Comments Hepatitis B Surface Antigen (test code = 5196-1) Negative [facility] B Core IgM Xeejamtm4335-37-78 10:01:00* Test Item Value Reference Range Interpretation Comments Hepatitis B Core IgM Antibody (test code = 90040-4) Negative [facility] C Kbeuzsjz8516-11-60 10:01:00* Test Item Value Reference Range Interpretation Comments Hepatitis C Antibody (test code = 77855-2) <0.1 Reference Range: 0.0 - 0.9 s/co ratioNegative: < 0.8Indeterminate: 0.8 - 0.9Positive: > 0.9The CDC recommends that a positive HCV antibody resultbe followed up with a HCV Nucleic Acid Amplificationtest (294036).[facility] [address] [place] [address]Guf: Edmond Mcneil MDFor inquiries, the physician may contact Branch: [phone] Lab: [phone] Richardson Medical CenterHepatitis B Surface Antibody, Fgtux4935-90-49 08:56:00* Test Item Value Reference Range Interpretation Comments Hepatitis B Surface Antibody, Quant (test code = 5194-6) 78.5 Immunity>9.9 Status of Immunity Anti-HBs Level Inconsistent with Immunity 0.0 - 9.9Consistent with Immunity >9.9[facility] Core Total Ffhcmphn8547-73-38 08:56:00* Test Item Value Reference Range Interpretation Comments Hepatitis B Core Total Antibody (test code = 82712-5) Negative Negative Performed at: [employer] [facility] [id number] Director: Edmond Mcneil MD, Phone: [phone] Richardson Medical CenterHepatitis B Surface Antibody, Ykejr4908-96-16 08:56:00* Test Item Value Reference Range Interpretation Comments Hepatitis B Surface Antibody, Quant (test code = 5194-6) 78.5 Immunity>9.9 Status of Immunity Anti-HBs Level Inconsistent with Immunity 0.0 - 9.9Consistent with Immunity >9.9[facility] B Core Total Mfnwzbxk8160-85-95 08:56:00* Test Item Value Reference Range Interpretation Comments Hepatitis B Core Total Antibody (test code = 52063-3) Negative Negative Performed at: [facility] [id number] Director: Edmond Mcneil MD, Phone: [phone] Health Plainviewodium Ktejg9137-64-33 07:21:00* Test Item Value Reference Range Interpretation Comments Sodium Level (test code = 2951-2) 134 136-145 L [facility] CenterPotassium Dwxap1779-33-52 07:21:00* Test Item Value Reference Range Interpretation Comments Potassium Level (test code = 2823-3) 4.1 3.5-5.1 [facility] CenterChloride Utmlg0396-47-53 07:21:00* Test Item Value Reference Range Interpretation Comments Chloride Level (test code = 2075-0) 101 98-107 [facility] CenterCarbon Dioxide Tthku2052-52-98 07:21:00* Test Item Value Reference Range Interpretation Comments Carbon Dioxide Level (test code = 2028-9) 23 22-29 [facility] CenterAnion Dau7801-92-04 07:21:00* Test Item Value Reference Range Interpretation Comments Anion Gap (test code = 01233-6) 14.1 8-16 [facility] CenterBlood Urea Fpgfaylg7912-11-72 07:21:00* Test Item Value Reference Range Interpretation Comments Blood Urea Nitrogen (test code = 3094-0) 48 7-26 H [facility] CenterCreatinine2018-06-05 07:21:00* Test Item Value Reference Range Interpretation Comments Creatinine (test code = 2160-0) 5.21 0.57-1.11 H [facility] CenterBUN/Creatinine Mzokg4321-68-11 07:21:00* Test Item Value Reference Range Interpretation Comments BUN/Creatinine Ratio (test code = 3097-3) 9 6-25 [facility] CenterEstimat Glomerular Filtration Rate 2017-07-15 07:21:00* Test Item Value Reference Range Interpretation Comments Estimat Glomerular Filtration Rate (test code = 00508-3) 9 >60 L Ranges were taken from the National Kidney Disease Education Program and the [facility] Foundation literature.Reference ranges:60 or greater: Fufxya24-59 ( for 3 consecutive months): Chronic kidney disease 15 or less: Kidney failureMethodist Richardson Medical CenterGlucose Xuubf5840-20-35 07:21:00* Test Item Value Reference Range Interpretation Comments Glucose Level (test code = TZC7855) 143 74-118 H [facility] CenterCalcium Jippg9177-52-88 07:21:00* Test Item Value Reference Range Interpretation Comments Calcium Level (test code = 91228-1) 8.9 8.4-10.2 [facility] CenterWhite Blood Mkmdc9167-75-58 07:16:00* Test Item Value Reference Range Interpretation Comments White Blood Count (test code = 6690-2) 4.73 4.8-10.8 L [facility] CenterRed Blood Ofldc5720-48-27 07:16:00* Test Item Value Reference Range Interpretation Comments Red Blood Count (test code = 789-8) 3.23 3.6-5.1 L [facility] CenterHemoglobin2018-06-05 07:16:00* Test Item Value Reference Range Interpretation Comments Hemoglobin (test code = 09244-9) 10.0 12.0-16.0 L [facility] CenterHematocrit2018-06-05 07:16:00* Test Item Value Reference Range Interpretation Comments Hematocrit (test code = 4544-3) 29.8 34.2-44.1 L [facility] CenterMean Corpuscular Ctxisz8620-84-34 07:16:00* Test Item Value Reference Range Interpretation Comments Mean Corpuscular Volume (test code = 787-2) 92.3 81-99 [facility] CenterMean Corpuscular Lbdkrasacg9230-52-10 07:16:00* Test Item Value Reference Range Interpretation Comments Mean Corpuscular Hemoglobin (test code = 785-6) 31.0 28-32 [facility] CenterMean Corpuscular Hemoglobin Concent 2017-07-15 07:16:00* Test Item Value Reference Range Interpretation Comments Mean Corpuscular Hemoglobin Concent (test code = 786-4) 33.6 31-35 [facility] CenterRed Cell Distribution Twgar2302-64-42 07:16:00* Test Item Value Reference Range Interpretation Comments Red Cell Distribution Width (test code = 43383-8) 14.5 11.7 -14.4 H [facility] CenterPlatelet Ituob3207-79-18 07:16:00* Test Item Value Reference Range Interpretation Comments Platelet Count (test code = 777-3) 229 140-360 [facility] CenterNeutrophils (%) (Auto)2017-07-15 07:16:00 * Test Item Value Reference Range Interpretation Comments Neutrophils (%) (Auto) (test code = 17146-0) 72.7 38.7-80.0 [facility] CenterLymphocytes (%) (Auto)2017-07-15 07:16:00 * Test Item Value Reference Range Interpretation Comments Lymphocytes (%) (Auto) (test code = 736-9) 14.4 18.0-39.1 L [facility] CenterMonocytes (%) (Auto)2017-07-15 07:16:00* Test Item Value Reference Range Interpretation Comments Monocytes (%) (Auto) (test code = 5905-5) 10.4 4.4-11.3 [facility] CenterEosinophils (%) (Auto)2017-07-15 07:16:00 * Test Item Value Reference Range Interpretation Comments Eosinophils (%) (Auto) (test code = 713-8) 1.7 0.0-6.0 [facility] CenterBasophils (%) (Auto)2017-07-15 07:16:00* Test Item Value Reference Range Interpretation Comments Basophils (%) (Auto) (test code = 706-2) 0.4 0.0-1.0 [facility] CenterIM GRANULOCYTES %2017-07-15 07:16:00* Test Item Value Reference Range Interpretation Comments IM GRANULOCYTES % (test code = IM GRANULOCYTES %) 0.4 0.0- 1.0 [facility] CenterNeutrophils # (Auto)2017-07-15 07:16:00* Test Item Value Reference Range Interpretation Comments Neutrophils # (Auto) (test code = 751-8) 3.4 2.1-6.9 [facility] CenterLymphocytes # (Auto)2017-07-15 07:16:00* Test Item Value Reference Range Interpretation Comments Lymphocytes # (Auto) (test code = 67066-6) 0.7 1.0-3.2 L [facility] CenterMonocytes # (Auto)2017-07-15 07:16:00* Test Item Value Reference Range Interpretation Comments Monocytes # (Auto) (test code = 742-7) 0.5 0.2-0.8 [facility] CenterEosinophils # (Auto)2017-07-15 07:16:00* Test Item Value Reference Range Interpretation Comments Eosinophils # (Auto) (test code = 711-2) 0.1 0.0-0.4 [facility] CenterBasophils # (Auto)2017-07-15 07:16:00* Test Item Value Reference Range Interpretation Comments Basophils # (Auto) (test code = 704-7) 0.0 0.0-0.1 [facility] CenterAbsolute Immature Granulocyte (auto 2017-07-15 07:16:00* Test Item Value Reference Range Interpretation Comments Absolute Immature Granulocyte (auto (carine t code = Absolute Immature Granulocyte (auto) 0.02 0-0.1 [facility] CenterBlood Saoswjk2475-85-59 13:42:00* Test Item Value Reference Range Interpretation Comments Blood Culture (test code = 600-7) Organism: STAPH HOMINIS SUB HOMIN IS [facility] Occult Uzypv8548-02-82 19:05:00* Test Item Value Reference Range Interpretation Comments Stool Occult Blood (test code = 2335-8) NEGATIVE NEGATIVE [facility] Occult Bdkwv6459-43-11 19:05:00* Test Item Value Reference Range Interpretation Comments Stool Occult Blood (test code = 2335-8) NEGATIVE NEGATIVE [facility] CenterVitamin B12 Ubhwr8389-00-95 16:17:00* Test Item Value Reference Range Interpretation Comments Vitamin B12 Level (test code = 04702-8) 279 213-816 [facility] CenterVitamin B12 Zdlus4574-41-40 16:17:00* Test Item Value Reference Range Interpretation Comments Vitamin B12 Level (test code = 63196-2) 279 213-816 [facility] CenterFerritin2018-06-03 16:10:00* Test Item Value Reference Range Interpretation Comments Ferritin (test code = 2276-4) 203.03 4.63-204.00 [facility] CenterFerritin2018-06-03 16:10:00* Test Item Value Reference Range Interpretation Comments Ferritin (test code = 2276-4) 203.03 4.63-204.00 [facility] Wgmyw2809-74-45 15:55:00* Test Item Value Reference Range Interpretation Comments Iron Level (test code = 2498-4) 52 50-170 [facility] CenterTotal Iron Binding Fgexdmbt0893-05-61 15:55:00* Test Item Value Reference Range Interpretation Comments Total Iron Binding Capacity (test code = 2500-7) 267 261-4 78 [facility] CenterPercent Iron Qywrsgxsxn9622-25-26 15:55:00* Test Item Value Reference Range Interpretation Comments Percent Iron Saturation (test code = 2502-3) 19 15-50 [facility] CenterTransferrin2018-06-03 15:55:00* Test Item Value Reference Range Interpretation Comments Transferrin (test code = 3034-6) 191 180-382 [facility] Gstjo4167-81-78 15:55:00* Test Item Value Reference Range Interpretation Comments Iron Level (test code = 2498-4) 52 50-170 [facility] CenterToj[facility] Iron Binding Unalqbpk5290-20-96 15:55:00* Test Item Value Reference Range Interpretation Comments Total Iron Binding Capacity (test code = 2500-7) 267 261-4 78 [facility] CenterPerohiohealth Iron Oyzkulsvnb0504-60-95 15:55:00* Test Item Value Reference Range Interpretation Comments Percent Iron Saturation (test code = 2502-3) 19 15-50 [facility] CenterTransferrin2018-06-03 15:55:00* Test Item Value Reference Range Interpretation Comments Transferrin (test code = 3034-6) 191 180-382 [facility] CenterBlood Wanyand8941-84-58 09:00:00* Test Item Value Reference Range Interpretation Comments Blood Culture (test code = 00236387) Growth detected. Culture wo rkup ordered. [facility] CenterCreatine Kinase PM2159-20-52 15:40:00* Test Item Value Reference Range Interpretation Comments Creatine Kinase MB (test code = 57713-8) 0.70 0-5.0 [facility] CenterTroponin G9295-45-75 15:40:00* Test Item Value Reference Range Interpretation Comments Troponin I (test code = TPK8214) 0.011 0-0.300 [facility] CenterCreatine Bzphsm9898-30-73 15:30:00* Test Item Value Reference Range Interpretation Comments Creatine Kinase (test code = 2157-6) 16 29-168 L [facility] CenterUrine ELC3044-44-86 08:56:00* Test Item Value Reference Range Interpretation Comments Urine WBC (test code = 5821-4) 0-5 0-5 [facility] CenterUrine OLV0011-80-88 08:56:00* Test Item Value Reference Range Interpretation Comments Urine RBC (test code = 85382-4) 0-5 0-5 [facility] CenterUrine Rztzrwty8546-17-58 08:56:00* Test Item Value Reference Range Interpretation Comments Urine Bacteria (test code = 23041-3) RARE NONE [facility] CenterUrine Epithelial Vaufw8330-85-55 08:56:00 * Test Item Value Reference Range Interpretation Comments Urine Epithelial Cells (test code = 15634-3) FEW NONE [facility] CenterUrine CXW8908-25-61 08:56:00* Test Item Value Reference Range Interpretation Comments Urine WBC (test code = 5821-4) 0-5 0-5 [facility] CenterUrine JOR3441-29-19 08:56:00* Test Item Value Reference Range Interpretation Comments Urine RBC (test code = 31315-8) 0-5 0-5 [facility] CenterUrine Fghcrsfi0262-54-99 08:56:00* Test Item Value Reference Range Interpretation Comments Urine Bacteria (test code = 74585-7) RARE NONE [facility] CenterUrine Epithelial Anxzq7628-11-09 08:56:00 * Test Item Value Reference Range Interpretation Comments Urine Epithelial Cells (test code = 08069-2) FEW NONE [facility] CenterUrine Sztso2159-36-65 08:52:00* Test Item Value Reference Range Interpretation Comments Urine Color (test code = 5778-6) YELLOW YELLOW [facility] CenterUrine Pvupayl0426-79-47 08:52:00* Test Item Value Reference Range Interpretation Comments Urine Clarity (test code = 17667-1) CLEAR CLEAR [facility] Specific Ytxkwfg6415-25-18 08:52:00 * Test Item Value Reference Range Interpretation Comments Urine Specific [place] (test code = 5811-5) 1.020 1.010-1.02 5 [facility] CenterUrine pH0309-85-62 08:52:00* Test Item Value Reference Range Interpretation Comments Urine pH (test code = 03958-1) 8 5-7 H [facility] Leukocyte Khnaymlk6501-26-48 08:52:00* Test Item Value Reference Range Interpretation Comments Urine Leukocyte Esterase (test code = 5799-2) NEGATIVE NEGATIVE [facility] Prnvjfh4184-32-84 08:52:00* Test Item Value Reference Range Interpretation Comments Urine Nitrite (test code = 42056-7) NEGATIVE NEGATIVE [facility] CenterUrine Otpupps7988-63-78 08:52:00* Test Item Value Reference Range Interpretation Comments Urine Protein (test code = 5804-0) 3+ NEGATIVE H [facility] Glucose (UA)2017-07-11 08:52:00* Test Item Value Reference Range Interpretation Comments Urine Glucose (UA) (test code = 2349-9) 2+ NEGATIVE H [facility] CenterUrine Wlmcnro5717-48-34 08:52:00* Test Item Value Reference Range Interpretation Comments Urine Ketones (test code = 33888-0) NEGATIVE NEGATIVE [facility] Dgsjwdpzwcmy4159-54-43 08:52:00* Test Item Value Reference Range Interpretation Comments Urine Urobilinogen (test code = 16204-3) 0.2 0.2-1 [facility] CenterUrine Domgewcyi1501-74-37 08:52:00* Test Item Value Reference Range Interpretation Comments Urine Bilirubin (test code = 1978-6) NEGATIVE NEGATIVE [facility] CenterUrine Yvgli9502-94-85 08:52:00* Test Item Value Reference Range Interpretation Comments Urine Blood (test code = 57366-7) NEGATIVE NEGATIVE [facility] CenterUrine Gtnlm8505-40-13 08:52:00* Test Item Value Reference Range Interpretation Comments Urine Color (test code = 5778-6) YELLOW YELLOW [facility] CenterUrine Vivqync5114-04-59 08:52:00* Test Item Value Reference Range Interpretation Comments Urine Clarity (test code = 72729-3) CLEAR CLEAR [facility] CenterUrine Specific Sagxedw6088-27-03 08:52:00 * Test Item Value Reference Range Interpretation Comments Urine Specific [place] (test code = 5811-5) 1.020 1.010-1.02 5 [facility] CenterUrine aP9665-30-04 08:52:00* Test Item Value Reference Range Interpretation Comments Urine pH (test code = 28073-4) 8 5-7 H [facility] CenterUrine Leukocyte Pxcclyqx8621-05-89 08:52:00* Test Item Value Reference Range Interpretation Comments Urine Leukocyte Esterase (test code = 5799-2) NEGATIVE NEGATIVE [facility] CenterUrine Wshqjmr0698-15-29 08:52:00* Test Item Value Reference Range Interpretation Comments Urine Nitrite (test code = 05484-2) NEGATIVE NEGATIVE [facility] CenterUrine Npwfohy2590-86-06 08:52:00* Test Item Value Reference Range Interpretation Comments Urine Protein (test code = 5804-0) 3+ NEGATIVE H [facility] CenterUrine Glucose (UA)2017-07-11 08:52:00* Test Item Value Reference Range Interpretation Comments Urine Glucose (UA) (test code = 2349-9) 2+ NEGATIVE H [facility] CenterUrine Faoqtag0324-33-15 08:52:00* Test Item Value Reference Range Interpretation Comments Urine Ketones (test code = 75264-3) NEGATIVE NEGATIVE [facility] CenterUrine Hrnkpcphivbk1077-76-94 08:52:00* Test Item Value Reference Range Interpretation Comments Urine Urobilinogen (test code = 83613-6) 0.2 0.2-1 [facility] CenterUrine Xvdncawqv3199-46-09 08:52:00* Test Item Value Reference Range Interpretation Comments Urine Bilirubin (test code = 1978-6) NEGATIVE NEGATIVE [facility] CenterUrine Yyqrp0916-97-99 08:52:00* Test Item Value Reference Range Interpretation Comments Urine Blood (test code = 19542-9) NEGATIVE NEGATIVE [facility] CenterTotal Dddtufquo4831-56-57 06:41:00* Test Item Value Reference Range Interpretation Comments Total Bilirubin (test code = 1975-2) 0.5 0.2-1.2 [facility] CenterAspartate Amino Transf (AST/SGOT) 2017-07-11 06:41:00* Test Item Value Reference Range Interpretation Comments Aspartate Amino Transf (AST/SGOT) (test code = Aspartate Amino Transf (AST/SGOT)) 7 5-34 [facility] CenterAlanine Aminotransferase (ALT/SGPT) 2017-07-11 06:41:00* Test Item Value Reference Range Interpretation Comments Alanine Aminotransferase (ALT/SGPT) (test code = 1742-6) 9 0-55 [facility] CenterTotal Ovtuhaa8040-18-15 06:41:00* Test Item Value Reference Range Interpretation Comments Total Protein (test code = 2885-2) 5.3 6.5-8.1 L [facility] CenterAlbumin2018-06-01 06:41:00* Test Item Value Reference Range Interpretation Comments Albumin (test code = 1751-7) 2.7 3.5-5.0 L [facility] CenterGlobulin2018-06-01 06:41:00* Test Item Value Reference Range Interpretation Comments Globulin (test code = 60421-2) 2.6 2.3-3.5 [facility] CenterAlbumin/Globulin Qqhsw0485-50-60 06:41:00 * Test Item Value Reference Range Interpretation Comments Albumin/Globulin Ratio (test code = 1759-0) 1.0 0.8-2.0 [facility] CenterAlkaline Fphxqafqznl3422-76-59 06:41:00* Test Item Value Reference Range Interpretation Comments Alkaline Phosphatase (test code = 6768-6) 59 40-150 [facility] CenterTriglycerides Oialj1536-65-79 06:41:00* Test Item Value Reference Range Interpretation Comments Triglycerides Level (test code = 2571-8) 133 0-149 [facility] CenterCholesterol Urukp2517-41-72 06:41:00* Test Item Value Reference Range Interpretation Comments Cholesterol Level (test code = 2093-3) 188 0-199 Less than 200 mg/dL Low Ojww957 - 239 mg/dL Borderline Wwut561 m g/dl and greater High Risk [facility] CenterLDL Oywogmqehlw5006-95-66 06:41:00* Test Item Value Reference Range Interpretation Comments LDL Cholesterol (test code = 2089-1) 94 60-130 [facility] Phaaxdjxpth2458-89-94 06:41:00* Test Item Value Reference Range Interpretation Comments HDL Cholesterol (test code = 2085-9) 67 40-60 H [facility] CenterCholesterol/HDL Zfnaa0793-09-94 06:41:00 * Test Item Value Reference Range Interpretation Comments Cholesterol/HDL Ratio (test code = 9830-1) 2.8 3.0-3.6 L [facility] CenterTriglycerides Fozzr7665-93-86 06:41:00* Test Item Value Reference Range Interpretation Comments Triglycerides Level (test code = 2571-8) 133 0-149 [facility] CenterCholesterol Qtaat2426-25-42 06:41:00* Test Item Value Reference Range Interpretation Comments Cholesterol Level (test code = 2093-3) 188 0-199 Less than 200 mg/dL Low Xiqx902 - 239 mg/dL Borderline Wkpr433 m g/dl and greater High Risk [facility] CenterLDL Ljpzuhgziuy5618-27-89 06:41:00* Test Item Value Reference Range Interpretation Comments LDL Cholesterol (test code = 2089-1) 94 60-130 [facility] Xevgjtelhzi5561-18-44 06:41:00* Test Item Value Reference Range Interpretation Comments HDL Cholesterol (test code = 2085-9) 67 40-60 H [facility] CenterCholesterol/HDL Hfnvd6539-04-08 06:41:00 * Test Item Value Reference Range Interpretation Comments Cholesterol/HDL Ratio (test code = 9830-1) 2.8 3.0-3.6 L [facility] CenterProthrombin Hurc9696-10-25 02:45:00* Test Item Value Reference Range Interpretation Comments Prothrombin Time (test code = 5902-2) 13.2 11.9-14.5 [facility] CenterProthromb Time International Ratio 2017-07-11 02:45:00* Test Item Value Reference Range Interpretation Comments Prothromb Time International Ratio (test code = 6301-6) 1.08 Oral Anticoagulant Therapy INR Values:1. Low Intensity Therapy 1.5 - 2.02 . Moderate Intensity Therapy 2.0 - 3.03. High Intensity Therapy(1) 2.5 - 3. 54. High Intensity Therapy(2) 3.0 - 4.05. Panic Value INR > 5.0 [facility] CenterActivated Partial Thromboplast Time 2017-07-11 02:45:00* Test Item Value Reference Range Interpretation Comments Activated Partial Thromboplast Time (test code = 05055-7) 30.1 23.8-35.5 [facility] CenterProthrombin Zwky6548-90-16 02:45:00* Test Item Value Reference Range Interpretation Comments Prothrombin Time (test code = 5902-2) 13.2 11.9-14.5 [facility] CenterProthromb Time International Ratio 2017-07-11 02:45:00* Test Item Value Reference Range Interpretation Comments Prothromb Time International Ratio (test code = 6301-6) 1.08 Oral Anticoagulant Therapy INR Values:1. Low Intensity Therapy 1.5 - 2.02 . Moderate Intensity Therapy 2.0 - 3.03. High Intensity Therapy(1) 2.5 - 3. 54. High Intensity Therapy(2) 3.0 - 4.05. Panic Value INR > 5.0 [facility] CenterActivated Partial Thromboplast Time 2017-07-11 02:45:00* Test Item Value Reference Range Interpretation Comments Activated Partial Thromboplast Time (test code = 72909-4) 30.1 23.8-35.5 [facility] CenterB-Type Natriuretic Hodbwlm4785-13-81 21:58:00* Test Item Value Reference Range Interpretation Comments B-Type Natriuretic Peptide (test code = 85009-7) 1694.2 0-100 H [facility] CenterMagnesium Llkty4218-45-61 21:57:00* Test Item Value Reference Range Interpretation Comments Magnesium Level (test code = 61180-8) 1.8 1.3-2.1 [facility] CenterMagnesium Tiper8395-42-25 21:57:00* Test Item Value Reference Range Interpretation Comments Magnesium Level (test code = 18973-2) 1.8 1.3-2.1 [facility] CenterLactic Acid Vrvam6537-46-76 21:50:00* Test Item Value Reference Range Interpretation Comments Lactic Acid Level (test code = Lactic Acid Level) 10.5 4.5- 19.8 [facility] CenterLactic Acid Xlafm9573-97-41 21:50:00* Test Item Value Reference Range Interpretation Comments Lactic Acid Level (test code = Lactic Acid Level) 10.5 4.5- 19.8 [facility] CenterArterial Blood [id number] 21:18:00* Test Item Value Reference Range Interpretation Comments Arterial Blood pH (test code = 2744-1) 7.47 7.31-7.41 H [facility] CenterArterial Blood Partial Pressure CO2 2017-07-10 21:18:00* Test Item Value Reference Range Interpretation Comments Arterial Blood Partial Pressure CO2 (test code = 2018-09) 42 41-51 [facility] CenterArterial Blood Partial Pressure O2 2017-07-10 21:18:00* Test Item Value Reference Range Interpretation Comments Arterial Blood Partial Pressure O2 (test code = 2018-09) 87 80-[address] [facility] Blood [id number] 21:18:00* Test Item Value Reference Range Interpretation Comments Arterial Blood HCO3 (test code = 1960-4) 31 23-[address] [facility] Blood Base Ebmqsl7906-70-95 21:18:00* Test Item Value Reference Range Interpretation Comments Arterial Blood Base Excess (test code = 1925-7) 7.0 -2-3 H [facility] CenterArterial Blood Oxygen Saturation 2017-07-10 21:18:00* Test Item Value Reference Range Interpretation Comments Arterial Blood Oxygen Saturation (test code = 2708-6) 97.0 95-98 [facility] CenterFiO22018-05-31 21:18:00* Test Item Value Reference Range Interpretation Comments FiO2 (test code = FiO2) 28 PT ON 2L NC99%/74HR/20RRCH[facility] pH 2017-07-10 21:18:00* Test Item Value Reference Range Interpretation Comments Arterial Blood pH (test code = 2744-1) 7.47 7.31-7.41 H [facility] CenterArterial Blood Partial Pressure CO2 2017-07-10 21:18:00* Test Item Value Reference Range Interpretation Comments Arterial Blood Partial Pressure CO2 (test code = 2018-8) 42 41-51 [facility] CenterArterial Blood Partial Pressure O2 2017-07-10 21:18:00* Test Item Value Reference Range Interpretation Comments Arterial Blood Partial Pressure O2 (test code = 2018-8) 87 80-105 [facility] [id number] 21:18:00* Test Item Value Reference Range Interpretation Comments Arterial Blood HCO3 (test code = 1960-4) 31 23-28 H [facility] CenterArterial Blood Base Jvnbdh5786-73-16 21:18:00* Test Item Value Reference Range Interpretation Comments Arterial Blood Base Excess (test code = 1925-7) 7.0 -2-3 H [facility] CenterArterial Blood Oxygen Saturation 2017-07-10 21:18:00* Test Item Value Reference Range Interpretation Comments Arterial Blood Oxygen Saturation (test code = 2708-6) 97.0 95-98 [facility] CenterFiO22018-05-31 21:18:00* Test Item Value Reference Range Interpretation Comments FiO2 (test code = FiO2) 28 PT ON 2L NC99%/74HR/20RRMethodist [facility] CenterBedside Glucose 2017-06-26 16:00:00* Test Item Value Reference Range Interpretation Comments Bedside Glucose (test code = 62665-7) 249 70-120 H Meter ID: [id number] Richardson Medical CenterDifferential Total Cells Izwxknz5310-58-11 07:47:00* Test Item Value Reference Range Interpretation Comments Differential Total Cells Counted (test code = Differen tial Total Cells Counted) 100 [facility] CenterNeutrophils % (Manual)2017-06-26 07:47:00 * Test Item Value Reference Range Interpretation Comments Neutrophils % (Manual) (test code = 54050-0) 90 40-74 H [facility] CenterLymphocytes % (Manual)2017-06-26 07:47:00 * Test Item Value Reference Range Interpretation Comments Lymphocytes % (Manual) (test code = 737-7) 10 19-48 L [facility] CenterPlatelet Vylglrdh9308-69-57 07:47:00* Test Item Value Reference Range Interpretation Comments Platelet Estimate (test code = 77922-3) ADEQUATE [facility] CenterPlatelet Morphology Rpnqwhb2111-07-91 07:47:00* Test Item Value Reference Range Interpretation Comments Platelet Morphology Comment (test code = 96127-1) NORMAL [facility] CenterHypochromasia2018-05-17 07:47:00* Test Item Value Reference Range Interpretation Comments Hypochromasia (test code = 728-6) SLIGHT [facility] CenterRed Cell Morphology Btfqxob4223-69-63 07:47:00* Test Item Value Reference Range Interpretation Comments Red Cell Morphology Comment (test code = 6742-1) NORMAL [facility] CenterDifferential Total Cells Counted 2017-06-26 07:47:00* Test Item Value Reference Range Interpretation Comments Differential Total Cells Counted (test code = Differen tial Total Cells Counted) 100 [facility] CenterNeutrophils % (Manual)2017-06-26 07:47:00 * Test Item Value Reference Range Interpretation Comments Neutrophils % (Manual) (test code = 83561-6) 90 40-74 H [facility] CenterLymphocytes % (Manual)2017-06-26 07:47:00 * Test Item Value Reference Range Interpretation Comments Lymphocytes % (Manual) (test code = 737-7) 10 19-48 L [facility] CenterPlatelet Jzyuwbve6960-73-86 07:47:00* Test Item Value Reference Range Interpretation Comments Platelet Estimate (test code = 88930-5) ADEQUATE [facility] CenterPlatelet Morphology Okbehak3997-53-58 07:47:00* Test Item Value Reference Range Interpretation Comments Platelet Morphology Comment (test code = 71037-6) NORMAL [facility] CenterHypochromasia2018-05-17 07:47:00* Test Item Value Reference Range Interpretation Comments Hypochromasia (test code = 728-6) SLIGHT [facility] CenterRed Cell Morphology Epubyds8817-44-97 07:47:00* Test Item Value Reference Range Interpretation Comments Red Cell Morphology Comment (test code = 6742-1) NORMAL [facility] CenterDifferential Total Cells Counted 2017-06-26 07:47:00* Test Item Value Reference Range Interpretation Comments Differential Total Cells Counted (test code = Gabby tial Total Cells Counted) 100 [facility] CenterNeutrophils % (Manual)2017-06-26 07:47:00 * Test Item Value Reference Range Interpretation Comments Neutrophils % (Manual) (test code = 86895-4) 90 40-74 H [facility] CenterLymphocytes % (Manual)2017-06-26 07:47:00 * Test Item Value Reference Range Interpretation Comments Lymphocytes % (Manual) (test code = 737-7) 10 19-48 L [facility] CenterPlatelet Hnrbxdlg5345-09-15 07:47:00* Test Item Value Reference Range Interpretation Comments Platelet Estimate (test code = 12746-8) ADEQUATE [facility] CenterPlatelet Morphology Lpazpss2318-46-68 07:47:00* Test Item Value Reference Range Interpretation Comments Platelet Morphology Comment (test code = 18764-1) NORMAL [facility] CenterHypochromasia2018-05-17 07:47:00* Test Item Value Reference Range Interpretation Comments Hypochromasia (test code = 728-6) SLIGHT [facility] CenterRed Cell Morphology Rffqdjg8700-88-68 07:47:00* Test Item Value Reference Range Interpretation Comments Red Cell Morphology Comment (test code = 6742-1) NORMAL [facility]viewodium Mfgsf3054-31-75 07:27:00* Test Item Value Reference Range Interpretation Comments Sodium Level (test code = 2951-2) 136 136-145 [facility] CenterPotassium Fpjgt4341-60-10 07:27:00* Test Item Value Reference Range Interpretation Comments Potassium Level (test code = 2823-3) 4.4 3.5-5.1 [facility] CenterChloride Xlnqw3404-62-39 07:27:00* Test Item Value Reference Range Interpretation Comments Chloride Level (test code = 2075-0) 99 98-107 [facility] CenterCarbon Dioxide Ymnpq9701-60-63 07:27:00* Test Item Value Reference Range Interpretation Comments Carbon Dioxide Level (test code = 2028-9) 26 22-29 [facility] CenterAnion Vdr2432-32-59 07:27:00* Test Item Value Reference Range Interpretation Comments Anion Gap (test code = 99207-1) 15.4 8-16 [facility] CenterBlood Urea Wnqjsnht5832-17-59 07:27:00* Test Item Value Reference Range Interpretation Comments Blood Urea Nitrogen (test code = 3094-0) 57 7-26 H [facility] CenterCreatinine2018-05-17 07:27:00* Test Item Value Reference Range Interpretation Comments Creatinine (test code = 2160-0) 5.05 0.57-1.11 H [facility] CenterBUN/Creatinine Cheaq8323-78-40 07:27:00* Test Item Value Reference Range Interpretation Comments BUN/Creatinine Ratio (test code = 3097-3) 11 6-25 [facility] CenterEstimat Glomerular Filtration Rate 2017-06-26 07:27:00* Test Item Value Reference Range Interpretation Comments Estimat Glomerular Filtration Rate (test code = 00121-8) 9 >60 L Ranges were taken from the National Kidney Disease Education Program and the [facility] literature.Reference ranges:60 or greater: Flisij44-11 ( for 3 consecutive months): Chronic kidney disease 15 or less: Kidney failureMethodist Richardson Medical CenterGlucose Dyvcs0993-86-98 07:27:00* Test Item Value Reference Range Interpretation Comments Glucose Level (test code = YDQ5596) 176 74-118 H [facility] CenterCalcium Hbony1071-63-28 07:27:00* Test Item Value Reference Range Interpretation Comments Calcium Level (test code = 08950-3) 8.6 8.4-10.2 [facility] CenterWhite Blood Dnzvk9532-06-26 06:53:00* Test Item Value Reference Range Interpretation Comments White Blood Count (test code = 6690-2) 6.14 4.8-10.8 [facility] CenterRed Blood Jmcnp6315-13-15 06:53:00* Test Item Value Reference Range Interpretation Comments Red Blood Count (test code = 789-8) 2.86 3.6-5.1 L [facility] CenterHemoglobin2018-05-17 06:53:00* Test Item Value Reference Range Interpretation Comments Hemoglobin (test code = 10647-4) 8.8 12.0-16.0 L [facility] CenterHematocrit2018-05-17 06:53:00* Test Item Value Reference Range Interpretation Comments Hematocrit (test code = 4544-3) 26.3 34.2-44.1 L [facility] CenterMean Corpuscular Ayrooo8504-05-56 06:53:00* Test Item Value Reference Range Interpretation Comments Mean Corpuscular Volume (test code = 787-2) 92.0 81-99 [facility] CenterMean Corpuscular Guzcrqlfyg5266-05-42 06:53:00* Test Item Value Reference Range Interpretation Comments Mean Corpuscular Hemoglobin (test code = 785-6) 30.8 28-32 [facility] CenterMean Corpuscular Hemoglobin Concent 2017-06-26 06:53:00* Test Item Value Reference Range Interpretation Comments Mean Corpuscular Hemoglobin Concent (test code = 786-4) 33.5 31-35 [facility] CenterRed Cell Distribution Dtsdz9816-20-30 06:53:00* Test Item Value Reference Range Interpretation Comments Red Cell Distribution Width (test code = 93073-7) 13.2 11.7 -14.4 [facility] CenterPlatelet Giord8613-28-49 06:53:00* Test Item Value Reference Range Interpretation Comments Platelet Count (test code = 777-3) 239 140-360 [facility] CenterNeutrophils (%) (Auto)2017-06-26 06:53:00 * Test Item Value Reference Range Interpretation Comments Neutrophils (%) (Auto) (test code = 58110-1) 85.6 38.7-80.0 H [facility] CenterLymphocytes (%) (Auto)2017-06-26 06:53:00 * Test Item Value Reference Range Interpretation Comments Lymphocytes (%) (Auto) (test code = 736-9) 9.4 18.0-39.1 L [facility] CenterMonocytes (%) (Auto)2017-06-26 06:53:00* Test Item Value Reference Range Interpretation Comments Monocytes (%) (Auto) (test code = 5905-5) 4.2 4.4-11.3 L [facility] CenterEosinophils (%) (Auto)2017-06-26 06:53:00 * Test Item Value Reference Range Interpretation Comments Eosinophils (%) (Auto) (test code = 713-8) 0.0 0.0-6.0 [facility] CenterBasophils (%) (Auto)2017-06-26 06:53:00* Test Item Value Reference Range Interpretation Comments Basophils (%) (Auto) (test code = 706-2) 0.0 0.0-1.0 [facility] CenterIM GRANULOCYTES %2017-06-26 06:53:00* Test Item Value Reference Range Interpretation Comments IM GRANULOCYTES % (test code = IM GRANULOCYTES %) 0.8 0.0- 1.0 [facility] CenterNeutrophils # (Auto)2017-06-26 06:53:00* Test Item Value Reference Range Interpretation Comments Neutrophils # (Auto) (test code = 751-8) 5.3 2.1-6.9 [facility] CenterLymphocytes # (Auto)2017-06-26 06:53:00* Test Item Value Reference Range Interpretation Comments Lymphocytes # (Auto) (test code = 84696-1) 0.6 1.0-3.2 L [facility] CenterMonocytes # (Auto)2017-06-26 06:53:00* Test Item Value Reference Range Interpretation Comments Monocytes # (Auto) (test code = 742-7) 0.3 0.2-0.8 [facility] CenterEosinophils # (Auto)2017-06-26 06:53:00* Test Item Value Reference Range Interpretation Comments Eosinophils # (Auto) (test code = 711-2) 0.0 0.0-0.4 [facility] CenterBasophils # (Auto)2017-06-26 06:53:00* Test Item Value Reference Range Interpretation Comments Basophils # (Auto) (test code = 704-7) 0.0 0.0-0.1 [facility] CenterAbsolute Immature Granulocyte (auto 2017-06-26 06:53:00* Test Item Value Reference Range Interpretation Comments Absolute Immature Granulocyte (auto (carine t code = Absolute Immature Granulocyte (auto) 0.05 0-0.1 [facility] CenterCreatine Kinase [id number] 15:27:00* Test Item Value Reference Range Interpretation Comments Creatine Kinase MB (test code = 57718-5) 1.90 0-5.0 [facility] CenterTroponin H0894-94-46 15:27:00* Test Item Value Reference Range Interpretation Comments Troponin I (test code = CHO4066) 0.168 0-0.300 [facility] CenterCreatine Tcafvx9272-30-15 15:20:00* Test Item Value Reference Range Interpretation Comments Creatine Kinase (test code = 2157-6) 20 29-168 L [facility] CenterB-Type Natriuretic Njiafam0892-73-06 15:35:00* Test Item Value Reference Range Interpretation Comments B-Type Natriuretic Peptide (test code = 51181-3) 1512.7 0-100 H [facility] CenterPhosphorus Snzca6782-14-37 15:24:00* Test Item Value Reference Range Interpretation Comments Phosphorus Level (test code = NBC1048) 2.6 2.3-4.7 [facility] CenterMagnesium Fmpog1247-89-18 15:24:00* Test Item Value Reference Range Interpretation Comments Magnesium Level (test code = 55437-3) 1.7 1.3-2.1 [facility] CenterTo[facility] Fpmvrzzbe1401-71-22 15:24:00* Test Item Value Reference Range Interpretation Comments Total Bilirubin (test code = 1975-2) 0.7 0.2-1.2 [facility] CenterAspartate Amino Transf (AST/SGOT) 2017-06-24 15:24:00* Test Item Value Reference Range Interpretation Comments Aspartate Amino Transf (AST/SGOT) (test code = Aspartate Amino Transf (AST/SGOT)) 8 5-34 [facility] CenterAlanine Aminotransferase (ALT/SGPT) 2017-06-24 15:24:00* Test Item Value Reference Range Interpretation Comments Alanine Aminotransferase (ALT/SGPT) (test code = 1742-6) 6 0-55 [facility] CenterTotal Foutxjc9059-76-79 15:24:00* Test Item Value Reference Range Interpretation Comments Total Protein (test code = 2885-2) 6.6 6.5-8.1 [facility] CenterAlbumin2018-05-15 15:24:00* Test Item Value Reference Range Interpretation Comments Albumin (test code = 1751-7) 3.3 3.5-5.0 L [facility] CenterGlobulin2018-05-15 15:24:00* Test Item Value Reference Range Interpretation Comments Globulin (test code = 91483-6) 3.3 2.3-3.5 [facility] CenterAlbumin/Globulin Ujjbd5832-90-08 15:24:00 * Test Item Value Reference Range Interpretation Comments Albumin/Globulin Ratio (test code = 1759-0) 1.0 0.8-2.0 [facility] CenterAlkaline Pekfthnrsam7394-55-80 15:24:00* Test Item Value Reference Range Interpretation Comments Alkaline Phosphatase (test code = 6768-6) 65 40-150 [facility] CenterPhosphorus Gzihz8671-49-78 15:24:00* Test Item Value Reference Range Interpretation Comments Phosphorus Level (test code = UUC5689) 2.6 2.3-4.7 [facility] CenterPhosphorus Oqger9279-68-07 15:24:00* Test Item Value Reference Range Interpretation Comments Phosphorus Level (test code = BFY5424) 2.6 2.3-4.7 [facility] CenterBedside Luzxenl3139-32-94 17:41:00* Test Item Value Reference Range Interpretation Comments Bedside Glucose (test code = 75979-4) 176 70-120 H Meter ID: [id number] Health Plainviewodium Level 2017-04-28 07:06:00* Test Item Value Reference Range Interpretation Comments Sodium Level (test code = 2951-2) 133 136-145 L [facility] CenterPotassium Jqjiq4486-42-58 07:06:00* Test Item Value Reference Range Interpretation Comments Potassium Level (test code = 2823-3) 4.1 3.5-5.1 [facility] CenterChloride Zcaft0071-50-41 07:06:00* Test Item Value Reference Range Interpretation Comments Chloride Level (test code = 2075-0) 97 98-107 L [facility] CenterCarbon Dioxide Ijhjp9097-42-88 07:06:00* Test Item Value Reference Range Interpretation Comments Carbon Dioxide Level (test code = 2028-9) 25 22-29 [facility] CenterAnion Akz9813-40-47 07:06:00* Test Item Value Reference Range Interpretation Comments Anion Gap (test code = 03330-7) 15.1 8-16 [facility] CenterBlood Urea Crlszdui5041-86-91 07:06:00* Test Item Value Reference Range Interpretation Comments Blood Urea Nitrogen (test code = 3094-0) 34 7-26 H [facility] CenterCreatinine2018-03-19 07:06:00* Test Item Value Reference Range Interpretation Comments Creatinine (test code = 2160-0) 6.83 0.57-1.11 H [facility] CenterBUN/Creatinine Lsjwr3478-21-92 07:06:00* Test Item Value Reference Range Interpretation Comments BUN/Creatinine Ratio (test code = 3097-3) 5 6-25 L [facility] CenterEstimat Glomerular Filtration Rate 2017-04-28 07:06:00* Test Item Value Reference Range Interpretation Comments Estimat Glomerular Filtration Rate (test code = 30133-4) 6 >60 L Ranges were taken from the National Kidney Disease Education Program and the [facility] literature.Reference ranges:60 or greater: Sfscwc02-19 ( for 3 consecutive months): Chronic kidney disease 15 or less: Kidney failureMethod[facility] Medical CenterGlucose Ohjqe7899-49-90 07:06:00* Test Item Value Reference Range Interpretation Comments Glucose Level (test code = WTN3192) 151 74-118 H [facility] CenterCalcium Kmzzi7515-09-67 07:06:00* Test Item Value Reference Range Interpretation Comments Calcium Level (test code = 82926-0) 9.1 8.4-10.2 [facility] CenterWhite Blood Bahen1644-41-36 06:39:00* Test Item Value Reference Range Interpretation Comments White Blood Count (test code = 6690-2) 4.96 4.8-10.8 [facility] CenterRed Blood Ijpdg8192-33-36 06:39:00* Test Item Value Reference Range Interpretation Comments Red Blood Count (test code = 789-8) 3.06 3.6-5.1 L [facility] CenterHemoglobin2018-03-19 06:39:00* Test Item Value Reference Range Interpretation Comments Hemoglobin (test code = 62165-7) 9.8 12.0-16.0 L [facility] CenterHematocrit2018-03-19 06:39:00* Test Item Value Reference Range Interpretation Comments Hematocrit (test code = 4544-3) 29.3 34.2-44.1 L [facility] CenterMean Corpuscular Wdaegv1991-38-06 06:39:00* Test Item Value Reference Range Interpretation Comments Mean Corpuscular Volume (test code = 787-2) 95.8 81-99 [facility] CenterMean Corpuscular Auroyayraz8544-65-59 06:39:00* Test Item Value Reference Range Interpretation Comments Mean Corpuscular Hemoglobin (test code = 785-6) 32.0 28-32 [facility] CenterMean Corpuscular Hemoglobin Concent 2017-04-28 06:39:00* Test Item Value Reference Range Interpretation Comments Mean Corpuscular Hemoglobin Concent (test code = 786-4) 33.4 31-35 [facility] CenterRed Cell Distribution Bljuz5130-88-03 06:39:00* Test Item Value Reference Range Interpretation Comments Red Cell Distribution Width (test code = 88345-4) 13.2 11.7 -14.4 [facility] CenterPlatelet Erpte6637-80-25 06:39:00* Test Item Value Reference Range Interpretation Comments Platelet Count (test code = 777-3) 320 140-360 [facility] CenterNeutrophils (%) (Auto)2017-04-28 06:39:00 * Test Item Value Reference Range Interpretation Comments Neutrophils (%) (Auto) (test code = 46421-2) 56.7 38.7-80.0 [facility] CenterLymphocytes (%) (Auto)2017-04-28 06:39:00 * Test Item Value Reference Range Interpretation Comments Lymphocytes (%) (Auto) (test code = 736-9) 22.4 18.0-39.1 [facility] CenterMonocytes (%) (Auto)2017-04-28 06:39:00* Test Item Value Reference Range Interpretation Comments Monocytes (%) (Auto) (test code = 5905-5) 14.9 4.4-11.3 H [facility] CenterEosinophils (%) (Auto)2017-04-28 06:39:00 * Test Item Value Reference Range Interpretation Comments Eosinophils (%) (Auto) (test code = 713-8) 5.0 0.0-6.0 [facility] CenterBasophils (%) (Auto)2017-04-28 06:39:00* Test Item Value Reference Range Interpretation Comments Basophils (%) (Auto) (test code = 706-2) 0.8 0.0-1.0 [facility] CenterIM GRANULOCYTES %2017-04-28 06:39:00* Test Item Value Reference Range Interpretation Comments IM GRANULOCYTES % (test code = IM GRANULOCYTES %) 0.2 0.0- 1.0 [facility] CenterNeutrophils # (Auto)2017-04-28 06:39:00* Test Item Value Reference Range Interpretation Comments Neutrophils # (Auto) (test code = 751-8) 2.8 2.1-6.9 [facility] CenterLymphocytes # (Auto)2017-04-28 06:39:00* Test Item Value Reference Range Interpretation Comments Lymphocytes # (Auto) (test code = 47952-6) 1.1 1.0-3.2 [facility] CenterMonocytes # (Auto)2017-04-28 06:39:00* Test Item Value Reference Range Interpretation Comments Monocytes # (Auto) (test code = 742-7) 0.7 0.2-0.8 [facility] CenterEosinophils # (Auto)2017-04-28 06:39:00* Test Item Value Reference Range Interpretation Comments Eosinophils # (Auto) (test code = 711-2) 0.3 0.0-0.4 [facility] CenterBasophils # (Auto)2017-04-28 06:39:00* Test Item Value Reference Range Interpretation Comments Basophils # (Auto) (test code = 704-7) 0.0 0.0-0.1 [facility] CenterAbsolute Immature Granulocyte (auto 2017-04-28 06:39:00* Test Item Value Reference Range Interpretation Comments Absolute Immature Granulocyte (auto (carine t code = Absolute Immature Granulocyte (auto) 0.01 0-0.1 [facility] CenterTotal Bvzshazqd0915-33-85 09:59:00* Test Item Value Reference Range Interpretation Comments Total Bilirubin (test code = 1975-2) 0.4 0.2-1.2 [facility] CenterAspartate Amino Transf (AST/SGOT) 2017-04-26 09:59:00* Test Item Value Reference Range Interpretation Comments Aspartate Amino Transf (AST/SGOT) (test code = Aspartate Amino Transf (AST/SGOT)) 13 5-34 [facility] CenterAlanine Aminotransferase (ALT/SGPT) 2017-04-26 09:59:00* Test Item Value Reference Range Interpretation Comments Alanine Aminotransferase (ALT/SGPT) (test code = 1742-6) 7 0-55 [facility] CenterTotal Ccwpqzy5056-92-42 09:59:00* Test Item Value Reference Range Interpretation Comments Total Protein (test code = 2885-2) 6.1 6.5-8.1 L [facility] CenterAlbumin2018-03-17 09:59:00* Test Item Value Reference Range Interpretation Comments Albumin (test code = 1751-7) 2.5 3.5-5.0 L [facility] CenterGlobulin2018-03-17 09:59:00* Test Item Value Reference Range Interpretation Comments Globulin (test code = 18791-4) 3.6 2.3-3.5 H [facility] [facility] CenterAlbumin/Globulin Caevc8623-90-56 09:59:00 * Test Item Value Reference Range Interpretation Comments Albumin/Globulin Ratio (test code = 1759-0) 0.7 0.8-2.0 L [facility] CenterAlkaline Gmmyetnptuf5596-22-15 09:59:00* Test Item Value Reference Range Interpretation Comments Alkaline Phosphatase (test code = 6768-6) 69 40-150 [facility] CenterArterial Blood uI0226-57-77 02:08:00* Test Item Value Reference Range Interpretation Comments Arterial Blood pH (test code = 2744-1) 7.42 7.31-7.41 H [facility] CenterArterial Blood Partial Pressure CO2 2017-04-26 02:08:00* Test Item Value Reference Range Interpretation Comments Arterial Blood Partial Pressure CO2 (test code = 2019-8) 44 41-51 [facility] CenterArterial Blood Partial Pressure O2 2017-04-26 02:08:00* Test Item Value Reference Range Interpretation Comments Arterial Blood Partial Pressure O2 (test code = 2018-8) 56 80-105 L [facility] CenterArterial Blood PWC53073-28-69 02:08:00* Test Item Value Reference Range Interpretation Comments Arterial Blood HCO3 (test code = 1960-4) 29 23-28 [facility] Base Scitpj2827-82-98 02:08:00* Test Item Value Reference Range Interpretation Comments Arterial Blood Base Excess (test code = 1925-7) 4.0 -2-3 H [facility] CenterArterial Blood Oxygen Saturation 2017-04-26 02:08:00* Test Item Value Reference Range Interpretation Comments Arterial Blood Oxygen Saturation (test code = 2708-6) 89.0 95-98 L Pt on 3L [place].[facility] CenterArterial Blood jP0406-86-98 02:08:00* Test Item Value Reference Range Interpretation Comments Arterial Blood pH (test code = 2744-1) 7.42 7.31-7.41 H [facility] CenterArterial Blood Partial Pressure CO2 2017-04-26 02:08:00* Test Item Value Reference Range Interpretation Comments Arterial Blood Partial Pressure CO2 (test code = 2019-8) 44 41-51 [facility] CenterArterial Blood Partial Pressure O2 2017-04-26 02:08:00* Test Item Value Reference Range Interpretation Comments Arterial Blood Partial Pressure O2 (test code = 2019-8) 56 80-[address] [facility] Blood REY63331-30-11 02:08:00* Test Item Value Reference Range Interpretation Comments Arterial Blood HCO3 (test code = 1960-4) 29 23-28 H [facility] CenterAr[facility]ial Blood Base Nqcrkm3206-61-19 02:08:00* Test Item Value Reference Range Interpretation Comments Arterial Blood Base Excess (test code = 1925-7) 4.0 -2-3 H [facility] CenterAr[facility]ial Blood Oxygen Saturation 2017-04-26 02:08:00* Test Item Value Reference Range Interpretation Comments Arterial Blood Oxygen Saturation (test code = 2708-6) 89.0 95-98 L Pt on 3L [place].[facility] CenterB-Type Natriuretic Peptide 2017-04-25 10:18:00* Test Item Value Reference Range Interpretation Comments B-Type Natriuretic Peptide (test code = 29899-5) 892.0 0-100 H [facility] B Surface Antibody, Quant 2017-04-25 08:37:00* Test Item Value Reference Range Interpretation Comments Hepatitis B Surface Antibody, Quant (test code = 5194-6) -3.1 Immunity>9.9 L Status of Immunity Anti-HBs Level Inconsistent with Immunity 0.0 - 9.9Consistent with Immunity >9.9[facility] Core Total Xqarnmgu6324-03-29 08:37:00* Test Item Value Reference Range Interpretation Comments Hepatitis B Core Total Antibody (test code = 88517-9) Negative Negative Performed at: - Lab[address] [id number] Director: Edmond Mcneil MD, Phone: [phone] Scott & [facility] B Surface Oqrknlt9830-18-30 08:37:00* Test Item Value Reference Range Interpretation Comments Hepatitis B Surface Antigen (test code = 5196-1) Negative Negat henry [facility] B Surface Antibody, Quant 2017-04-25 08:37:00* Test Item Value Reference Range Interpretation Comments Hepatitis B Surface Antibody, Quant (test code = 5194-6) -3.1 Immunity>9.9 L Status of Immunity Anti-HBs Level Inconsistent with Immunity 0.0 - 9.9Consistent with Immunity >9.9[facility] Core Total Nhuhajil7580-16-22 08:37:00* Test Item Value Reference Range Interpretation Comments Hepatitis B Core Total Antibody (test code = 69624-8) Negative Negative Performed at: [address] [id number] Director: Edmond Mcneil MD, Phone: [phone] [facility] CenterHelanterman developmental center B Surface Kpltsbt6441-80-83 08:37:00* Test Item Value Reference Range Interpretation Comments Hepatitis B Surface Antigen (test code = 5196-1) Negative Negat henry [facility]2017-10-13 05:21:00* Test Item Value Reference Range Interpretation Comments Aldosterone (test code = 1763-2) 1.2 0.0-30.0 This test was developed and its performance characteristicsdetermined by [employer] . It has not been cleared orapproved by the Food and Drug Administration.Perform ed at: [address] [id number] Dir zack: Tone Sheets MD, Phone: [phone] Memorial Hospital2017-10-13 05:21:00* Test Item Value Reference Range Interpretation Comments Aldosterone (test code = 1763-2) 1.2 0.0-30.0 This test was developed and its performance characteristicsdetermined by [employer] . It has not been cleared orapproved by the Food and Drug Administration.Perform ed at: [address] [id number] Dir zack: Tone Sheets MD, Phone: [phone] [facility] CenterAldosterone2017-10-13 05:21:00* Test Item Value Reference Range Interpretation Comments Aldosterone (test code = 1763-2) 1.2 0.0-30.0 This test was developed and its performance characteristicsdetermined by [employer] . It has not been cleared orapproved by the Food and Drug Administration.Perform ed at: [address] [id number] Dir zack: Tone Sheets MD, Phone: [phone] [facility] CenterPlasma Droklorcsgjb3435-31-94 07:51:00* Test Item Value Reference Range Interpretation Comments Plasma Metanephrine (test code = 19851-7) 14 0-62 Concentrations of Normetanephrine between 146 and 487pg/mL, and Metanephrine bet ween 63 and 255 pg/mL areconsidered indeterminate. Follow-up biochemical testing isrecommended when patient levels fall within thisindeterminate range. These te sts include repeat testing ofplasma/urinary fractionated metanephrines and plasm acatecholamines.Performed at: [address] [id number] Director: Tone Sheets MD, Phone: [phone] [facility] Medical CenterPlasma Lkcumfyqissjswg3751-73-77 07:51:00* Test Item Value Reference Range Interpretation Comments Plasma Normetanephrine (test code = 2669-0) 61 0-145 [facility] CenterPlasma Lrbmeetpkdui8282-59-24 07:51:00* Test Item Value Reference Range Interpretation Comments Plasma Metanephrine (test code = 77330-4) 14 0-62 Concentrations of Normetanephrine between 146 and 487pg/mL, and Metanephrine bet ween 63 and 255 pg/mL areconsidered indeterminate. Follow-up biochemical testing isrecommended when patient levels fall within thisindeterminate range. These te sts include repeat testing ofplasma/urinary fractionated metanephrines and plasm acatecholamines.Performed at: [address] [id number] Director: Tone Sheets MD, Phone: [phone] [facility] Medical CenterPlasma Uujbxuiempshqlf7801-86-11 07:51:00* Test Item Value Reference Range Interpretation Comments Plasma Normetanephrine (test code = 2669-0) 61 0-145 [facility] CenterPlasma Fndrmkaivhdq8028-01-67 07:51:00* Test Item Value Reference Range Interpretation Comments Plasma Metanephrine (test code = 99522-9) 14 0-62 Concentrations of Normetanephrine between 146 and 487pg/mL, and Metanephrine bet ween 63 and 255 pg/mL areconsidered indeterminate. Follow-up biochemical testing isrecommended when patient levels fall within thisindeterminate range. These te sts include repeat testing ofplasma/urinary fractionated metanephrines and plasm acatecholamines.Performed at: - Lab[address] [id number] Director: Tone Sheets MD, Phone: [phone] [facility] CenterPlasm Ogsrbtpnmqcfuya8623-87-95 07:51:00* Test Item Value Reference Range Interpretation Comments Plasma Normetanephrine (test code = 2669-0) 61 0-145 [facility] Atuqdgnel3952-76-30 15:06:00* Test Item Value Reference Range Interpretation Comments Free Thyroxine (test code = 3024-7) 0.83 0.8-1.8 [facility] CenterThyroid Stimulating Hormone (TSH) 2016-11-20 15:06:00* Test Item Value Reference Range Interpretation Comments Thyroid Stimulating Hormone (TSH) (test code = 92958-2) 1.354 0.350-4.940 [facility] Uxfawlpoq0951-62-76 15:06:00* Test Item Value Reference Range Interpretation Comments Free Thyroxine (test code = 3024-7) 0.83 0.8-1.8 [facility] CenterThyroid Stimulating Hormone (TSH) 2016-11-20 15:06:00* Test Item Value Reference Range Interpretation Comments Thyroid Stimulating Hormone (TSH) (test code = 97842-8) 1.354 0.350-4.940 [facility] Kevtetdtl5863-59-60 15:06:00* Test Item Value Reference Range Interpretation Comments Free Thyroxine (test code = 3024-7) 0.83 0.8-1.8 [facility] CenterThyroid Stimulating Hormone (TSH) 2016-11-20 15:06:00* Test Item Value Reference Range Interpretation Comments Thyroid Stimulating Hormone (TSH) (test code = 26592-0) 1.354 0.350-4.940 [facility] CenterHemoglobin A1c Mjiywrl5223-77-10 14:38:00 * Test Item Value Reference Range Interpretation Comments Hemoglobin A1c Percent (test code = Hemoglobin A1c Percent) 6.2 4.0-7.0 [facility] CenterHemoglobin A1c Qkgbzbt0898-18-17 14:38:00 * Test Item Value Reference Range Interpretation Comments Hemoglobin A1c Percent (test code = Hemoglobin A1c Percent) 6.2 4.0-7.0 [facility] CenterHemoglobin A1c Pbyhzjh9954-12-83 14:38:00 * Test Item Value Reference Range Interpretation Comments Hemoglobin A1c Percent (test code = Hemoglobin A1c Percent) 6.2 4.0-7.0 [facility] CenterPhosphorus Kaomc1159-22-75 06:40:00* Test Item Value Reference Range Interpretation Comments Phosphorus Level (test code = IKL7650) 4.0 2.3-4.7 [facility] CenterMagnesium Alqlk5513-00-23 06:40:00* Test Item Value Reference Range Interpretation Comments Magnesium Level (test code = 15785-1) 1.8 1.3-2.1 [facility] CenterHepatitis Be Itkufrxx5927-30-44 21:11:00 * Test Item Value Reference Range Interpretation Comments Hepatitis Be Antibody (test code = 51086-2) Negative Negative Performed at: [facility] [employer] [id number] Therapist Radiation: Tone Sheets MD, Phone: [phone] [facility] Medical CenterHepatitis Be Ktgbmmox2807-68-17 21:11:00* Test Item Value Reference Range Interpretation Comments Hepatitis Be Antibody (test code = 53231-9) Negative Negative Performed at: [address] [id number] Therapist Radiation: Tone Sheets MD, Phone: [phone] [facility] Medical CenterHepatitis Be Ogxjwsjo2772-99-52 21:11:00* Test Item Value Reference Range Interpretation Comments Hepatitis Be Antibody (test code = 81065-1) Negative Negative Performed at: [address] [id number] Therapist Radiation: Tone Sheets MD, Phone: [phone] [facility] Medical CenterUrine Collection Bbyk3001-23-92 18:08:00* Test Item Value Reference Range Interpretation Comments Urine Collection Time (test code = 46930-5) 24 [facility] CenterUrine Total Bfcnob6550-27-85 18:08:00* Test Item Value Reference Range Interpretation Comments Urine Total Volume (test code = 10953-2) 2150 800-2000 H [facility] CenterUrine Creatinine 24 Wqaz2626-22-63 18:08:00* Test Item Value Reference Range Interpretation Comments Urine Creatinine 24 Hour (test code = 2162-6) 048 378-7993 [facility] CenterCreatinine Sufccsrvo0777-86-16 18:08:00* Test Item Value Reference Range Interpretation Comments Creatinine Clearance (test code = 86693-3) 11 88-128 L [facility] CenterUrine Collection Guie5466-72-89 18:08:00 * Test Item Value Reference Range Interpretation Comments Urine Collection Time (test code = 48460-5) 24 [facility] CenterUrine Total Rargrw9592-98-22 18:08:00* Test Item Value Reference Range Interpretation Comments Urine Total Volume (test code = 81492-8) 2150 800-2000 H [facility] CenterUrine Creatinine 24 Rowo3552-64-89 18:08:00* Test Item Value Reference Range Interpretation Comments Urine Creatinine 24 Hour (test code = 2162-6) 168 812-8655 [facility] CenterCreatinine Pvageenui1317-93-84 18:08:00* Test Item Value Reference Range Interpretation Comments Creatinine Clearance (test code = 43044-2) 11 88-128 L [facility] CenterUrine Collection Kbge8423-63-19 18:08:00 * Test Item Value Reference Range Interpretation Comments Urine Collection Time (test code = 14505-9) 24 [facility] CenterUrine Total Mhrzuh6515-97-63 18:08:00* Test Item Value Reference Range Interpretation Comments Urine Total Volume (test code = 27822-8) 2150 800-2000 H [facility] CenterUrine Creatinine 24 Qrrq5134-79-05 18:08:00* Test Item Value Reference Range Interpretation Comments Urine Creatinine 24 Hour (test code = 2162-6) 070 917-0622 [facility] CenterCreatinine Dryaqumrk3448-50-10 18:08:00* Test Item Value Reference Range Interpretation Comments Creatinine Clearance (test code = 13593-4) 11 88-128 L [facility] CenterUrine Wzirsnvpvu9604-58-24 18:05:00* Test Item Value Reference Range Interpretation Comments Urine Creatinine (test code = 2161-8) 29.57 47-110 L [facility] CenterUrine Umhftsgxis2587-36-86 18:05:00* Test Item Value Reference Range Interpretation Comments Urine Creatinine (test code = 2161-8) 29.57 47-110 L [facility] CenterUrine Wfkckyxjhl7398-61-65 18:05:00* Test Item Value Reference Range Interpretation Comments Urine Creatinine (test code = 2161-8) 29.57 47-110 L [facility] CenterHepatitis Be Xolspjs7192-04-69 05:38:00* Test Item Value Reference Range Interpretation Comments Hepatitis Be Antigen (test code = 99509-1) Negative Negative [facility] Be Tbplxkm1694-50-87 05:38:00* Test Item Value Reference Range Interpretation Comments Hepatitis Be Antigen (test code = 05177-3) Negative Negative [facility] CenterHelanterman developmental center Be Drqpemi6328-27-48 05:38:00* Test Item Value Reference Range Interpretation Comments Hepatitis Be Antigen (test code = 97383-8) Negative Negative [facility] CenterCortisol AM Qjxlsp4382-82-31 21:52:00* Test Item Value Reference Range Interpretation Comments Cortisol AM Sample (test code = 9813-7) 6.7 6.2-19.4 No "Time Drawn" on tube.Performed at: [address] [id number] Director: Edmond Mcneil MD, Phone: [phone] [facility] Medical CenterCortisol AM Bysnon7643-44-58 21:52:00* Test Item Value Reference Range Interpretation Comments Cortisol AM Sample (test code = 9813-7) 6.7 6.2-19.4 No "Time Drawn" on tube.Performed at: [address] [id number] Director: Edmond Mcneil MD, Phone: [phone] [facility] Medical CenterCortisol AM Cvcnqm7883-58-36 21:52:00* Test Item Value Reference Range Interpretation Comments Cortisol AM Sample (test code = 9813-7) 6.7 6.2-19.4 No "Time Drawn" on tube.Performed at: [address] [id number] Director: Edmond Mcneil MD, Phone: [phone] [facility] Medical CenterTriglycerides Fzidl7454-44-39 06:59:00* Test Item Value Reference Range Interpretation Comments Triglycerides Level (test code = 2571-8) 157 0-149 H [facility] CenterCholesterol Afkig1745-86-38 06:59:00* Test Item Value Reference Range Interpretation Comments Cholesterol Level (test code = 2093-3) 234 0-199 H Less than 200 mg/dL Low Yxqw635 - 239 mg/dL Borderline Whkz667 m g/dl and greater High Risk [facility] CenterLDL Tmvhjbiaypf7587-82-41 06:59:00* Test Item Value Reference Range Interpretation Comments LDL Cholesterol (test code = 89328-7) 149 60-130 H [facility] CenterHDL Ydykxssefmx5061-92-59 06:59:00* Test Item Value Reference Range Interpretation Comments HDL Cholesterol (test code = 2085-9) 54 40-60 [facility] CenterCholesterol/HDL Jyhgk0878-57-43 06:59:00 * Test Item Value Reference Range Interpretation Comments Cholesterol/HDL Ratio (test code = 9830-1) 4.3 3.0-3.6 H [facility] CenterTriglycerides Lrdda0732-65-01 06:59:00* Test Item Value Reference Range Interpretation Comments Triglycerides Level (test code = 2571-8) 157 0-149 H [facility] CenterCholesterol Ksabr5620-46-07 06:59:00* Test Item Value Reference Range Interpretation Comments Cholesterol Level (test code = 2093-3) 234 0-199 H Less than 200 mg/dL Low Csaa821 - 239 mg/dL Borderline Rhfq801 m g/dl and greater High Risk [facility] CenterLDL Paeeaigukbn4904-11-88 06:59:00* Test Item Value Reference Range Interpretation Comments LDL Cholesterol (test code = 85370-9) 149 60-130 H [facility] CenterHDL Ewqhcvqraty9705-53-37 06:59:00* Test Item Value Reference Range Interpretation Comments HDL Cholesterol (test code = 2085-9) 54 40-60 [facility] CenterCholesterol/HDL Ovlky3087-85-53 06:59:00 * Test Item Value Reference Range Interpretation Comments Cholesterol/HDL Ratio (test code = 9830-1) 4.3 3.0-3.6 [facility] Nqjqg4045-31-16 19:00:00* Test Item Value Reference Range Interpretation Comments Stool Occult Blood (test code = 2335-8) POSITIVE NEGATIVE H [facility]to Occult Puhny0198-67-06 19:00:00* Test Item Value Reference Range Interpretation Comments Stool Occult Blood (test code = 2335-8) POSITIVE NEGATIVE [facility] HospitalCreatine Kinase LL5719-72-30 23:24:00* Test Item Value Reference Range Interpretation Comments Creatine Kinase MB (test code = 65041-1) 6.10 0.00-5.00 H [facility] CenterCreatine Leqvbd5533-60-35 23:00:00* Test Item Value Reference Range Interpretation Comments Creatine Kinase (test code = 2157-6) 102 29-168 [facility] CenterTroponin G9469-82-72 22:56:00* Test Item Value Reference Range Interpretation Comments Troponin I (test code = PEM5807) 0.468 0-0.300 H [facility] CenterUrine Oosaeckvfsi6031-84-70 22:51:00* Test Item Value Reference Range Interpretation Comments Urine Eosinophils (test code = 37898-8) NONE SEEN NONE SEEN [facility] CenterUrine Tauylaaafze3309-81-03 22:51:00* Test Item Value Reference Range Interpretation Comments Urine Eosinophils (test code = 93262-4) NONE SEEN NONE SEEN [facility] CenterUrine Imaxvzicwhu4351-12-46 22:51:00* Test Item Value Reference Range Interpretation Comments Urine Eosinophils (test code = 06395-0) NONE SEEN NONE SEEN [facility] CenterUrine Random Total Ngvssja4493-71-75 19:54:00* Test Item Value Reference Range Interpretation Comments Urine Random Total Protein (test code = 2888-6) 346.4 1-14 H [facility] CenterUrine Random Total Oxzqlqc4529-92-31 19:54:00* Test Item Value Reference Range Interpretation Comments Urine Random Total Protein (test code = 2888-6) 346.4 1-14 H [facility] CenterUrine Random Total Eaoomfq8055-02-68 19:54:00* Test Item Value Reference Range Interpretation Comments Urine Random Total Protein (test code = 2888-6) 346.4 1-14 H [facility] CenterB-Almndjurdhbqkoy0814-71-86 19:37:00* Test Item Value Reference Range Interpretation Comments B-Hydroxybutyrate (test code = 50449-8) 1.34 [facility] CenterB-Abmhbdlhktxlylb3844-13-45 19:37:00* Test Item Value Reference Range Interpretation Comments B-Hydroxybutyrate (test code = 76964-3) 1.34 [facility] CenterB-Fbjaoilullihmid3954-55-94 19:37:00* Test Item Value Reference Range Interpretation Comments B-Hydroxybutyrate (test code = 15633-9) 1.34 [facility] CenterUrine Random Smpmze6341-64-14 18:58:00* Test Item Value Reference Range Interpretation Comments Urine Random Sodium (test code = 2955-3) 94 [facility] CenterUrine Random Semkdb1457-66-70 18:58:00* Test Item Value Reference Range Interpretation Comments Urine Random Sodium (test code = 2955-3) 94 [facility] CenterUrine Random Rnjaxs2787-69-42 18:58:00* Test Item Value Reference Range Interpretation Comments Urine Random Sodium (test code = 2955-3) 94 [facility] Pczqnusuf8083-43-09 16:39:00* Test Item Value Reference Range Interpretation Comments Direct Bilirubin (test code = 00656-5) 0.1 0.0-5.0 [facility] Phyiqkmfb8439-48-34 16:39:00* Test Item Value Reference Range Interpretation Comments Direct Bilirubin (test code = 81310-9) 0.1 0.0-5.0 [facility] Hsbccdjvg3939-67-88 16:39:00* Test Item Value Reference Range Interpretation Comments Direct Bilirubin (test code = 32225-4) 0.1 0.0-5.0 [facility] CenterFerritin2017-10-07 14:09:00* Test Item Value Reference Range Interpretation Comments Ferritin (test code = 2276-4) 11.31 4.63-204.00 [facility] CenterFerritin2017-10-07 14:09:00* Test Item Value Reference Range Interpretation Comments Ferritin (test code = 2276-4) 11.31 4.63-204.00 [facility] CenterIron Hohvv2528-76-37 13:47:00* Test Item Value Reference Range Interpretation Comments Iron Level (test code = 2498-4) 14 50-170 L [facility] CenterTotal Iron Binding Axjpnoxp8210-88-13 13:47:00* Test Item Value Reference Range Interpretation Comments Total Iron Binding Capacity (test code = 2500-7) 398 261-4 78 [facility] CenterPercent Iron Fcskjwcqgt9083-91-69 13:47:00* Test Item Value Reference Range Interpretation Comments Percent Iron Saturation (test code = 2502-3) 4 15-50 L [facility] CenterTransferrin2017-10-07 13:47:00* Test Item Value Reference Range Interpretation Comments Transferrin (test code = 3034-6) 284 180-382 [facility] CenterIron Qgmgo0646-57-06 13:47:00* Test Item Value Reference Range Interpretation Comments Iron Level (test code = 2498-4) 14 50-170 L [facility] CenterTotal Iron Binding Roiadgll4271-62-36 13:47:00* Test Item Value Reference Range Interpretation Comments Total Iron Binding Capacity (test code = 2500-7) 398 261-4 78 [facility] CenterPercent Iron Jmdsldzvkf1822-57-97 13:47:00* Test Item Value Reference Range Interpretation Comments Percent Iron Saturation (test code = 2502-3) 4 15-50 L [facility] CenterTransferrin2017-10-07 13:47:00* Test Item Value Reference Range Interpretation Comments Transferrin (test code = 3034-6) 284 180-382 [facility] CenterProthrombin Xqhy4889-08-26 12:22:00* Test Item Value Reference Range Interpretation Comments Prothrombin Time (test code = 5902-2) 15.4 11.9-14.5 H [facility] CenterProthromb Time International Ratio 2016-11-16 12:22:00* Test Item Value Reference Range Interpretation Comments Prothromb Time International Ratio (test code = 6301-6) 1.16 Oral Anticoagulant Therapy INR Values:1. Low Intensity Therapy 1.5 - 2.02 . Moderate Intensity Therapy 2.0 - 3.03. High Intensity Therapy(1) 2.5 - 3. 54. High Intensity Therapy(2) 3.0 - 4.05. Panic Value INR > 5.0 [facility] CenterActivated Partial Thromboplast Time 2016-11-16 12:22:00* Test Item Value Reference Range Interpretation Comments Activated Partial Thromboplast Time (test code = 75099-4) 30.1 23.8-35.5 [facility] CenterProthrombin Tccd8854-58-10 12:22:00* Test Item Value Reference Range Interpretation Comments Prothrombin Time (test code = 5902-2) 15.4 11.9-14.5 [facility] CenterProthromb Time International Ratio 2016-11-16 12:22:00* Test Item Value Reference Range Interpretation Comments Prothromb Time International Ratio (test code = 6301-6) 1.16 Oral Anticoagulant Therapy INR Values:1. Low Intensity Therapy 1.5 - 2.02 . Moderate Intensity Therapy 2.0 - 3.03. High Intensity Therapy(1) 2.5 - 3. 54. High Intensity Therapy(2) 3.0 - 4.05. Panic Value INR > 5.0 [facility] CenterAct[facility] Partial Thromboplast Time 2016-11-16 12:22:00* Test Item Value Reference Range Interpretation Comments Activated Partial Thromboplast Time (test code = 42732-7) 30.1 23.8-35.5 [facility] [place] [address] Patient Name: YARITZA JOSEPH MR #: [id number] : 1960 Age/Sex: 57/F Req #: [id number] Adm Physician: Ordered by: HAM CALLAHAN MD Report #: [id number] Location: ER Room/Bed: Procedure: [id number] DX/CHEST 2 VIEWS Exam Da te: 07/10/17 Exam Time: 1950 REPORT STATUS: Sig patrice Two view chest x-ray INDICATION: Shortness of breath COMPARISO N: Chest x-ray 11/18/2016. FINDINGS: Stable mild cardiomegaly and aort ic ectasia. Dual lumen central venous catheter terminates in the distal SVC. There is no evidence of hilar lymphadenopathy. The lungs are diffusely hyp erinflated. Pulmonary vascular markings are prominent but stable suggestive of pulmonary venous hypertension. Faint reticulonodular opacities in the left up per lobe are stable. No consolidation. The costophrenic angles are sharp. No pneumothorax. Evaluation of the osseous structures demonstrates diffuse demineralization. Mild degenerative changes of the spine. No focal osseous les ions. IMPRESSION: Stable pulmonary hyperinflation. Reticulonodular opa cities in the left upper lobe are stable. Stable cardiomegaly without vas cular congestion. Signed by: Dr. Rosie De Jesus MD on 07/10/2017 8:32 PM Dictated By: ROSIE DE JESUS MD 31 Transcribed By: FRANCISCO J on 07/10/172031 COPY TO: HAM CALLAHAN MD CHEST 2 VIEWS [place] [address] Patient Name: YARITZA JOSEPH MR #: [id number] : 1960 Age/Sex: 56/F Req #: [id number] Adm Physician: BRENDAN TSANG MD Ordered by: BRENDAN TSANG MD Report #: [id number] Location: [facility] Room/Bed: [place] [address] Procedure: [id number] DX/CHEST 2 VIEWS Exam Date: Exam Time: REPORT STATUS: Signed PROCEDURE: Frontal and lateral views of the chest. COMPARISON: 06/24/2017 INDICATIONS: CHRONIC OBSTRUCTIVE PULMONARY DIS EASE FINDINGS: Lines/tubes: Right internal jugular central venous ca theter has its tip in the right atrium, unchanged. Lungs: Linear opacit y in the right lung base likely represents scar or atelectasis. There is no e vidence of pneumonia or pulmonary edema. Pleura: Small bilateral effusions , unchanged. Heart and mediastinum: The heart and the mediastinum are nor mal. Bones: No acute bony abnormality. IMPRESSION: Bibasilar atelectasis and small bilateral pleural effusions. No focal consolidation. Dictated by: Alberto Tena M.D. on 06/26/2017 at 14:08 Electronic ally approved by: Alberto Tena M.D. on 06/26/2017 at 14:08 Dictated By: ALBERTO TENA MD 140 Transcribed By: DHIRAJ on 06/26/171407 COPY TO: BRENDAN TSANG MD CHEST 2 VIEWS [place] [address] Patient Name: YARITZA JOSEPH MR #: [id number] : 1960 Age/Sex: 56/F Req #: [id number] Adm Physician: Ordered by: JALEEL KELLEY MD Report #: [id number] Location: ER Room/Bed: Procedure: [id number] DX/CHEST 2 VIEWS Jodee m Date: 06/24/17 Exam Time: 1516 REPORT STATUS: Signed PROCEDURE: Frontal and lateral views of the chest. COMPARISON: [facility] [place], DX, CHEST SINGLE (PORTABLE), 04/25/2017, 10:22. INDICATIONS: SHORTNESS OF BREATH FINDINGS: Lines/tubes: Stable right tunneled IJ dialysis catheter Lungs: Lungs are well-inflated. No con solidation. No overt pulmonary edema Pleura: Small bilateral pleural ef fusions. Heart and mediastinum: Stable enlargement of the cardiac silhouet te. Mild central pulmonary venous congestion. Bones: No acute bony abn ormality. IMPRESSION: 1. enlarged cardiac silhouette with mild cent ral pulmonary venous congestion, without overt pulmonary edema. Small bilater al pleural effusions. Dwayne Lira M.D. Dictated by: Ankita Lira M.D. on 06/24/2017 at 15:55 Electronically approved by: Dwayne Lira M.D. on 06/24/2017 at 15:55 Dictated By: CHECO LIRA MD 54 Tr anscribed By: DHIRAJ on 06/24/171554 COPY TO: JALEEL KELLEY MD CHEST SINGLE (PORTABLE) [place] [address] Patient Name: YARITZA JOSEPH MR #: [id number] : 1960 Age/Sex: 56/F Req #: [id number] Adm Physician: NATALIE RAY MD Ordered by: SLAVA PATEL MD Report #: [id number] Location: MED/SURG Room/Bed: [facility] Procedure: [id number] DX/CHEST SINGLE (PORTABLE) Exam Date: 04/25/17 Exam Time: 1015 REPORT STATUS: Signed PROCEDURE: A single AP view of the chest. COMPARISON: 04/22/17 INDICATIONS: COPD FINDIN GS: Lines/tubes: Unchanged right internal jugular dialysis catheter. Nasoga stric tube in place with tip extending beyond the inferior margin of the film . Lungs: The lungs are well inflated. Pulmonary vascular congestion. Pleura: There is no pneumothorax. Small right and trace left pleural effus ions. Heart and mediastinum: The cardiomediastinal silhouette is enlarged . Bones: No acute bony abnormality. IMPRESSION: Enlarged car diomediastinal silhouette, pulmonary vascular congestion, small right, and tr jaylan left pleural effusions. The right pleural effusion has increased from kenny or exam. Underlying infiltrate in the right lower lung field cannot be exclud ed. Dictated by: Tristen Markham M.D. on 04/25/2017 at 11:15 Electro nically approved by: Tristen Markham M.D. on 04/25/2017 at 11:15 Dictated By: TRISTEN MARKHAM MD 1115 COPY TO: ZKA PATEL MD CHEST 2 VIEWS [place] [address] Patient Name: YARITZA JOSEPH MR #: [id number] : 1960 Age/Sex: 56/F Req #: [id number] Adm Physician: Ordered by: NATALIE RAY MD Report #: [id number] Location: OR Room/Bed: Procedure: [id number] DX/CHEST 2 VIEWS Exa m Date: 04/22/17 Exam Time: 1045 REPORT STATUS: Signed PROCEDURE: CHEST 2 VIEWS TECHNIQUE: PA and lateral chest SANA CATION: Preoperative evaluation COMPARISON: None. FINDINGS: Right internal jugular dialysis catheter with tips in the low SVC. Bilateral lower lobe interstitial scar. Lungs otherwise clear. No pleural effusions. Normal h eart size, mediastinal contour, and pulmonary vasculature. Intact skeleton. CONCLUSION: No acute abnormality. Dictated by: Maya Sheets M.D. on 04/22/2017 at 11:15 Electronically approved by: Maya Sheets M.D. on 04/22/2017 at 11:15 Dictated By: MAYA SHEETS MD 1115 Trans cribed By: DHIRAJ on 04/22/17 1115 COPY TO: NATALIE RAY MD CT ABDOMEN/PELVIS W [place] [address] Patient Name: YARITZA JOSEPH MR #: [id number] : 1960 Age/Sex: 56/F Req #: [id number] Adm Physician: BRENDAN TSANG MD Ordered by: BRENDAN TSANG MD Report #: [id number] Location: MED/SURG Room/Bed: [facility] Procedure: [id number] CT/CT ABDOMEN/PELVIS W Exam Date: 11/27/16 Exam Time : 1746 REPORT STATUS: Signed EXAM: CT Abdomen and Pelvis WITH contrast INDICATION: Abnormal colonoscopy results. Anemia. COMPARISON: None. TECH NIQUE: Abdomen and pelvis were scanned utilizing a multidetector helical scann er from the lung base to the pubic symphysis after administration of IV contra st. Coronal and sagittal reformations were obtained. Routine protocol was perf ormed. Scan was performed when during portal venous phase. IV CONT RAST: 100 cc Isovue-370. ORAL CONTRAST: 30 cc of Gastrografin mixe d with water. RADIATION DOSE: Total DLP: 557.11 mGy*cm Estimated effective dose: (DLP x 0.015 x size factor) mSv COMP LICATIONS: None FINDINGS: LINES and TUBES: None. LOWER THORAX: P osterior bibasilar irregular pleural parenchymal densities suggestive of subse gmental atelectasis versus scarring. Trace pleural effusion bilaterally. HEPATOBILIARY: 5 mm low-attenuation lesion in the inferior liver on image 35 s eries 2 is too small to be characterize, however, statistically most likely be nign in etiology. No enhancing hepatic lesions. No biliary ductal dilation. GALLBLADDER: No punctate alkalosis versus punctate wall calcification in the posterior aspect of the gallbladder on image 30 series 2. No wall thickening. SPLEEN: No splenomegaly. PANCREAS: No ductal dilatation. 7 mm fat att enuation lesion in the pancreatic head on image 30 series 2 either focal fatty infiltration or a small lipomatous lesion. ADRENALS: Diffusely enlarged left adrenal gland measuring 5.1 x 3.9 cm in maximal AP and transverse dimensi ons on image 17 series 2, containing focal areas of low-attenuation, the large st posteriorly located measuring 3.1 x 2.5 cm [...] x 2.7 cm. Appendix is unremarkable. PELVIC ORGANS/BLADDER: Small volume of air within nondependent portion of the urinary bladder likely related to recent instrumentation. LYMPH NODES : No lymphadenopathy. VESSELS: Mild atherosclerotic plaque formation throug hout the abdominal aorta. PERITONEUM / RETROPERITONEUM: No free air or flui d. BONES: No acute osseous abnormality. No suspicious lesions. SOFT TI SSUES: Unremarkable. IMPRESSION: 1. 2 cecal polypoid masses. Correla te with tissue diagnosis. 2. Enlarged left adrenal gland with low-attenuatio n nodules which are indeterminate; recommend further evaluation with CT of abd omen adrenal protocol. 3. Punctate single gallbladder calculus versus wall c alcification. 4. Bilateral trace pleural effusions and bibasilar subsegmental atelectasis. Signed by: Dr. William Craven M.D. on 11/28/2016 9:06 A M Dictated By: JEFF CRAVEN MD, MD 5 Transcribed By: FRANCISCO J on 11/28/16905 COPY TO: BRENDAN TSANG MD IR CONSULT [place] [address] Patient Name: YARITZA JOSEPH MR #: [id number] : 1960 Age/Sex: 56/F Req #: [id number] Adm Physician: BRENDAN TSANG MD Ordered by: FRANCIA SAWYER MD Report #: [id number] Location: MED/SURG Room/Bed: [facility] Procedure: [id number] D X/IR CONSULT Exam Date: Exam Time: REPORT ST ATUS: Signed Tunneled Dialysis Catheter Placement November 25, 2016 Pre-P rocedure Diagnosis: End-Stage Renal Disease Post-procedure Diagnosis:End-Stage Renal Disease Traffic Reporter: Vidhya Sheets Research Engineer Marine Equipment: None Sedation: None. Heart rate and oxygen saturation were monitored in real-time. Blood pressure was measured in 5 minute increments. 1% lidocaine was used for local anesthesi a. Radiation Dose:84 cGycm2 (Dose Area Product) Fluoroscopy time:0.6 larry carine Estimate blood loss: 10 mL Blood administered: None Complications: No ne Implants/Grafts: 16 Liberian 19 cm cuffed tunneled dialysis catheter Specim en: None Procedure: Informed consent was obtained and the patient posi tioned supine in the fluoroscopy suite. A timeout was performed, followed by p reliminary ultrasound of the right internal jugular vein (see findings below). The right neck and chest were prepped and draped in standard fashion. Us ing real-time ultrasound guidance a 21 gauge vascular needle was used to acce ss the right internal jugular vein. An image was stored in the electronic [employer] ical record. A wire was advanced across the right atrium under fluoroscopy and the needle exchanged for a peel-away sheath. A skin incision was made infe rior to the clavicle and the catheter tunneled to the access site. The cathete r was then deployed through the peel-away sheath and positioned with the tip a t the atriocaval junction/right atrium. At the end of the procedure the cat heter was flushed, packed with heparin solution, secured to the skin and a yane rile dressing applied. The patient tolerated the procedure well and without im mediate complication. Findings: Patent right internal jugular vein as dem onstrated by normal ultrasound compressibility. Impression: Successful placement of a tunneled right internal jugular vein dialysis catheter using ul trasound and fluoroscopic guidance. This report was generated with [employer] ice-recognition technology. Errors in clinical medical transcriptionist can occur. Please interpre t accordingly and contact a radiologist if there are any questions regarding t he report. Signed by: Dr. Maya Sheets M.D. on 11/25/2016 2:19 PM Dictated By: MAYA SHEETS MD 1128 Transcribed By: FRANCISCO J on 11/26/16 1128 COPY TO: FRANCIA GIBBS MD SPECIAL PROCEDURE IN DISPLAY MANAGER [place] [address] Patient Name: YARITZA JOSEPH MR #: [id number] : 1960 Age/Sex: 56/F Req #: [id number] Adm Physician: BRENDAN TSANG MD Ordered by: FRANCIA SAWYER MD Report #: [id number] Location: MED/SURG Room/Bed: [facility] Procedure: [id number] I R/SPECIAL PROCEDURE IN DISPLAY MANAGER Exam Date: Exam Donald e: REPORT STATUS: Signed Tunneled Dialysis Catheter Placement November 25, 2016 Pre-Procedure Diagnosis: End-Stage Renal Disease Post-procedure Diagnosis:End-Stage Renal Disease Traffic Reporter: Vidhya Sheets Research Engineer Marine Equipment: None Sedation: None. Heart rate and oxygen saturation were monitored in real-time. Blood pressure was measured in 5 minute increments. 1% lidocaine was used for local anesthesia. Radiation Dose:84 cGycm2 (Dose Area Product) Fluoro scopy time:0.6 minutes Estimate blood loss: 10 mL Blood administered: None Complications: None Implants/Grafts: 16 Liberian 19 cm cuffed tunneled dialysis catheter Specimen: None Procedure: Informed consent was obtained and the patient positioned supine in the fluoroscopy suite. A timeout was perfo rmed, followed by preliminary ultrasound of the right internal jugular vein (s ee findings below). The right neck and chest were prepped and draped in standa rd fashion. Using real-time ultrasound guidance a 21 gauge vascular needle was used to access the right internal jugular vein. An image was stored in [facility] electronic medical record. A wire was advanced across the right atrium unde r fluoroscopy and the needle exchanged for a peel-away sheath. A skin inc ision was made inferior to the clavicle and the catheter tunneled to the acces s site. The catheter was then deployed through the peel-away sheath and positi oned with the tip at the atriocaval junction/right atrium. At the end of e procedure the catheter was flushed, packed with heparin solution, secured to the skin and a sterile dressing applied. The patient tolerated the procedure well and without immediate complication. Findings: Patent right internal jugular vein as demonstrated by normal ultrasound compressibility. Impres tyler: Successful placement of a tunneled right internal jugular vein dialysis catheter using ultrasound and fluoroscopic guidance. This report was generated with voice-recognition technology. Errors in clinical medical transcriptionist can occ ur. Please interpret accordingly and contact a radiologist if there are any qu estions regarding the report. Signed by: Dr. Maya Sheets M.D. on 11/25 2:19 PM Dictated By: MAYA SHEETS MD 27 Transcribed By: FRANCISCO J on 11/26/161127 COPY TO: FRANCIA SAWYER MD CHEST SINGLE (PORTABLE) [place] [address] Patient Name: YARITZA JOSEPH MR #: [id number] : 1960 Age/Sex: 56/F Req #: [id number] Adm Physician: BRENDAN TSANG MD Ordered by: SLAVA PATEL MD Report #: [id number] Loca tion: ICU Room/Bed: ICU [facility] Procedure: [id number] DX /CHEST SINGLE (PORTABLE) Exam Date: 11/18/16 Exam Ti me: 0455 REPORT STATUS: Signed EXAM: CHEST SINGLE (PORTABLE), AP 1 view DATE: 11/18/2016 5:00 AM Time stamp on exam: 0503 hours INDICATION: Congest henry heart failure COMPARISON: AP view of the chest November 17, 2016 FINDIN GS: LINES/TUBES: Stable position of right internal jugular vein central line. LUNGS: Central vascular congestion and mild interstitial edema. PLEUR A: Suspected small effusion on the left HEART AND MEDIASTINUM: Stable appea sal. BONES AND SOFT TISSUES: No acute findings. IMPRESSION: No si gnificant interval change. Signed by: Dr. Louise Hatfield M.D. on 11/18/2016 6:33 AM Dictated By: LOUISE HATFIELD MD Transcribed By: FRANCISCO J on 11/18/16632 COPY TO: SLAVA PATEL MD CHEST SINGLE (PORTABLE) [place] [address] Patient Name: YARITZA JOSEPH MR #: [id number] : 1960 Age/Sex: 56/F Req #: [id number] Adm Physician: BRENDAN TSANG MD Ordered by: SLAVA PATEL MD Report #: [id number] Loca tion: ICU Room/Bed: ICU [facility] Procedure: [id number] DX /CHEST SINGLE (PORTABLE) Exam Date: 11/17/16 Exam Ti me: 0535 REPORT STATUS: Signed EXAM: CHEST SINGLE (PORTABLE), AP 1 view DATE: 11/17/2016 5:00 AM Time stamp on exam: 0539 hours INDICATION: CHF C OMPARISON: AP view of the chest November 15, 2016 FINDINGS: LINES/TUBES: In terval placement of right internal jugular vein central line that terminates a t the expected location of the mid superior vena cava. LUNGS: Central vascu lar congestion and mild interstitial edema. PLEURA: Suspected layering rosalina ateral pleural effusions. HEART AND MEDIASTINUM: Stable mild cardiomegaly. BONES AND SOFT TISSUES: No acute findings. IMPRESSION: Stable findi ngs of mild fluid overload with cardiomegaly, interstitial edema, vascular con gestion and likely small bilateral layering pleural effusions. Signed by: Dr. Louise Hatfield M.D. on 11/17/2016 6:28 AM Dictated By: LOUISE HATFIELD MD 7 Transcr ibed By: FRANCISCO J on 11/17/16627 COPY TO: SLAVA PATEL MD US RENAL RETROPERITONEAL COMP [place] [address] Patient Name: YARITZA JOSEPH MR #: [id number] : 1960 Age/Sex: 56/F Req #: [id number] Adm Physician: BRENDAN TSANG MD Ordered by: FRANCIA SAWYER MD Report #: [id number] Location: ICU Room/Bed: ICU [facility] Procedure: [id number] US /US RENAL RETROPERITONEAL COMP Exam Date: 11/17/16 E xam Time: 1957 REPORT STATUS: Signed EXAM: Renal Ultrasound DATE: 12:00 AM Time stamp on exam: 1918 hours INDICATION: Anemia, hypertens henry COMPARISON: None TECHNIQUE: Transverse and longitudinal sonographic kayley ges of the kidneys and bladder were obtained. FINDINGS: RIGHT KIDNEY : 11.3 x 4.1 x 3.9 cm, normal cortical thickness. Echogenicity: Normal Newcomb nephrosis: None Calculi: None Cyst/Mass: Simple cyst in the inferior pole me asuring 1.6 x 1.1 x 1.1 cm LEFT KIDNEY: 10.9 x 4.8 x 5.1 cm, normal cortica l thickness. Echogenicity: Normal Hydronephrosis: None Calculi: None Cys t/Mass: Simple cyst in the inferior pole measuring 1.4 x 1.3 x 1.3 cm. There i s an anechoic nonvascular structure measuring 4 x 3.6 x 4.3 cm between the sup erior pole of the left kidney and the [...] Dictated By: LOUISE HATFIELD MD 08 Transcribed By: SONYA HIDALGO on 11/17/162008 COPY TO: FRANCIA SAWYER MD IR CONSULT [place] [address] Patient Name: YARITZA JOSEPH MR #: [id number] : 1960 Age/Sex: 56/F Req #: [id number] Adm Physician: BRENDAN TSANG MD Ordered by: FRANCIA SAWYER MD Report #: [id number] Loca tion: ICU Room/Bed: ICU [facility] Procedure: [id number] DX /IR CONSULT Exam Date: Exam Time: REPORT STA TUS: Signed PROCEDURE: FLUORO GUIDANCE DEE SO PLACEMENT COMPARISON: None. INDICATIONS: HD TRIALYSIS CATH FINDINGS: The right IJ was patent. Utilizing ultrasound for vascular access puncture of the right inte rnal jugular vein was accomplished with a 21 gauge skinny needle following st erile preparation and local anesthesia with 1% Xylocaine. A 0.018 " wire was then placed through the needle under fluoroscopic guidance. Micropuncture she ath was placed over the skinny wire. A 0.035 " Amplatz superstiff wire was th en placed through the micropuncture sheath. Serial dilatation was accomplishe d. A 13 Liberian 15 cm long temporary triple-lumen Trialysis catheter was then placed under fluoroscopic guidance. Tip is located in the SVC. Catheter is OK for immediate use. Fluoroscopy time: 0.5 minutes Total dose: 1.43 mGy CONCLUSION: Successful placement of a triple lumen temporary he modialysis catheter utilizing ultrasound and fluoroscopic guidance. Jennifer Mcallister D.O. Dictated by: Michaela Mcallister D.O. on 11/16/2016 at 16:09 Electronically approved by: Michaela Mcallitser D.O. on 11/16/2016 at 16:09 Dictated By: MICHAELA MCALLISTER DO 08 Transcribed By: DHIRAJ on 11/16/161608 COPY T O: FRANCIA SAWYER MD CHEST SINGLE (PORTABLE) [place] [address] Patient Name: YARITZA JOSEPH MR #: [id number] : 1960 Age/Sex: 56/F Req #: [id number] Adm Physician: BRENDAN TSANG MD Ordered by: ROCKY CABEZAS MD Report #: [id number] Location: [facility] Room/Bed: [place] [address] Procedure: [id number] DX/CHEST SINGLE (PORTABLE) Exam Date: 11/16/16 Ex am Time: 0800 REPORT STATUS: Signed EXAMINATION: Chest, CHEST SINGLE ( PORTABLE) INDICATION: Chest pain COMPARISON: Portable chest 2016 FINDINGS: LINES: None. Heart: Normal cardiac silh ouette. Vascular: The pulmonary vasculature is within normal limits. Ather osclerotic calcifications of the aortic arch. Mediastinum: No mediastinal , hilar, or axillary mass or lymphadenopathy. Lungs: No parenchymal mass. No focal consolidation. Bibasilar atelectasis. Pleura: No pleural effusion . No pneumothorax. Bones: No acute osseous abnormality. Degenerative triplett ges of the thoracic spine. Soft tissues: Normal. Impression: No acute radiographic abnormality. Signed by: Dr. Nathan Umana M.D. on 11/17/19 8:32 AM Dictated By: NATHAN UMANA MD 1 Transcribed By: FRANCISCO J on 11/16/16831 COPY TO : ROCKY CABEZAS MD US GUIDANCE FOR VASCULAR ACCES [place] [address] Patient Name: YARITZA JOSEPH MR #: [id number] : 1960 Age/Sex: 56/F Req #: [id number] Adm Physician: BRENDAN TSANG MD Ordered by: FRANCIA SAWYER MD Report #: [id number] Loca tion: ICU Room/Bed: ICU [facility] Procedure: [id number] US /US GUIDANCE FOR VASCULAR ACCES Exam Date: 11/16/16 Exam Time: 1430 REPORT STATUS: Signed PROCEDURE: ULTRASOUND GUIDANCE FOR VASCULAR ACCESS COMPARISON: None. INDICATIONS: Patient in wi ed of IV access and temporary hemodialysis. FINDINGS: The right internal jugular vein is noted to be patent. Ultrasound guidance was utilized for ac cess for Trialysis catheter placement. CONCLUSION: Patent right inter nal jugular vein. Successful ultrasound guidance for PICC triple lumen tempo rary hemodialysis catheter placement. Michaela Mcallister D.O. Dict ated by: Michaela Mcallister D.O. on 11/16/2016 at 15:28 Electronically appro akin by: Michaela Mcallister D.O. on 11/16/2016 at 15:28 Dictated B y: MICHAELA MCALLISTER DO 27 Transcribed By: DHIRAJ on 11/16/161527 COPY TO: FRANCIA SAWYER MD FLUORO GUIDANCE DEE SO PL/REM [place] [address] Patient Name: YARITZA JOSEPH MR #: [id number] : 1960 Age/Sex: 56/F Req #: [id number] Adm Physician: BRENDAN TSANG MD Ordered by: BRENDAN TSANG MD Report #: [id number] Location: ICU Room/Bed: ICU [facility] Procedure: [id number] D X/FLUORO GUIDANCE DEE SO PL/REM Exam Date: 11/16/16 [...] was then placed through the needle under fluoros copic guidance. Micropuncture sheath was placed over the skinny wire. A 0.035 " Amplatz superstiff wire was then placed through the micropuncture sheath. Serial dilatation was accomplished. A 13 Liberian 15 cm long temporary triple-l umen Trialysis catheter was then placed under fluoroscopic guidance. Tip is l ocated in the SVC. Catheter is OK for immediate use. Fluoroscopy time: 0.5 minutes Total dose: 1.43 mGy CONCLUSION: Successful placement of a triple lumen temporary hemodialysis catheter utilizing ultrasound and fl uoroscopic guidance. Michaela Mcallister D.O. Dictated by: Michaela hughes D.O. on 11/16/2016 at 16:09 Electronically approved by: Michaela Lynn am, D.O. on 11/16/2016 at 16:09 Dictated By: MICHAELA MCALLISTER DO 08 Transcribed By: IN FCE on 11/16/161608 COPY TO: BRENDAN TSANG MD CHEST SINGLE (PORTABLE) [place] [address] Patient Name: YARITZA JOSEPH MR #: [id number] : 1960 Age/Sex: 56/F Req #: [id number] Adm Physician: Ordered by: NAFISA LARES MD Report #: [id number] Location: ER Room/Bed: Procedure: [id number] DX/CHEST SINGLE (ADAM BLE) Exam Date: 11/15/16 Exam Time: 2129 REPOR T STATUS: Signed EXAM: CHEST SINGLE (PORTABLE), AP 1 view DATE: 11/15/2016 9 :14 PM Time stamp on exam: 2126 hours INDICATION: Shortness of breath RAMIRO RISON: AP view of the chest September 05, 2015 FINDINGS: LINES/TUBES: None LUNGS: Interval development of interstitial edema. PLEURA: Suspected lay ering pleural effusions. HEART AND MEDIASTINUM: Slight increase in cardiac diameter. Increased central vascular congestion. BONES AND SOFT TISSUES: No acute findings. IMPRESSION: Findings of fluid overload including card iomegaly and interstitial edema. Signed by: Dale Warren on 11/15/2016 9:48 PM Dictated By: LOUISE HATFIELD MD Electronically Sig patrice By: LOUISE HATFIELD MD on 11/15/16 2148 Transcribed By: FRANCISCO J on 11/15/16 2 148 COPY TO: NAFISA LARES MD
[2019-07-19 20:14] VITALS: BP 161/77
[2019-07-19] MEDS ORDERED: BRILINTA90 MG PO (20:53)
[2019-07-19] MEDS ORDERED: CLONIDINE HCL0.2 MG PO (20:53)
[2019-07-19] MEDS ORDERED: COMBIVENT RESPIM4 GM IH (20:53)
[2019-07-19] MEDS ORDERED: CELEBREX100 MG PO (20:53)
[2019-07-19] MEDS ORDERED: LMX 45 G1 TOP (20:53)
[2019-07-19] MEDS ORDERED: LEVEMIR FL100 UNIT/1 SC (20:53)
[2019-07-19 21:00] VITALS: BP 161/77
--- NOTE | 2019-07-19 21:16 | NUR ---
Spoke with Dr Willa Hernandez service ( [place]) regarding needing orders for new admission. Awaiting call back.
[2019-07-19] MEDS ORDERED: CELECOXIB 100 MG CAP PO PRN (22:15)
[2019-07-19] MEDS ORDERED: IPRATROPIUM/ALBUTEROL SULFATE 4 GM INH INH PRN (22:15)
[2019-07-19] MEDS: CARVEDILOL 3.125 MG TAB PO SCH (22:47)
[2019-07-19] MEDS: CLONIDINE HCL 0.2 MG TAB PO SCH (22:47)
[2019-07-19] MEDS: ALBUTEROL/IPRATROPIUM 3 ML NEB INH PRN (23:10)
[2019-07-20] VITALS (9 sets, daily range): BP systolic 128–175; BP diastolic 72–83
[2019-07-20] MEDS: MORPHINE SULFATE 2 MG/ML SYR 1ML IV PRN ×2 (04:58→15:45)
--- NOTE | 2019-07-20 07:00 | NUR ---
Received bedside shift report from off going night nurse. Patient in stable condition, no s/s of distress noted. no pain voiced. telemetry applied. Bed in lowest position and locked. Call light within reach.
--- NOTE | 2019-07-20 07:05 | NUR ---
Bedside report and walking rounds completed with on coming nurse. Patient in bed with call light within reach. No issues or concerns noted.
[2019-07-20] MEDS: ALBUTEROL/IPRATROPIUM 3 ML NEB INH PRN ×3 (07:18→19:42)
[2019-07-20] MEDS: ASPIRIN 81 MG CHEW TAB PO SCH (08:45)
[2019-07-20] MEDS: ASPIRIN 81 MG ENTERIC COATED PO SCH (08:46)
[2019-07-20] MEDS: CARVEDILOL 3.125 MG TAB PO SCH ×2 (08:47→20:39)
[2019-07-20] MEDS: CLOPIDOGREL BISULFATE 75 MG TAB PO SCH (08:47)
[2019-07-20] MEDS: CLONIDINE HCL 0.2 MG TAB PO SCH ×3 (08:47→20:40)
[2019-07-20] MEDS: SEVELAMER CARBONATE 800 MG TAB PO SCH ×3 (08:49→17:36)
[2019-07-20] MEDS: ESCITALOPRAM OXALATE 10 MG TAB PO SCH (08:49)
[2019-07-20] MEDS: FAMOTIDINE 20 MG/2 ML VIAL IV SCH ×2 (08:49→20:40)
[2019-07-20] MEDS ORDERED: TICAGRELOR 90 MG TABLET PO SCH (09:00)
[2019-07-20] MEDS: NON-FORMULARY MEDICATION ([Trelegy] 1 INH) INH SCH (09:00)
[2019-07-20] MEDS ORDERED: CLOPIDOGREL BISULFATE 75 MG TAB PO SCH (09:00)
[2019-07-20] MEDS: INSULIN GLARGINE 100 UNITS/ML VIAL SQ SCH (09:43)
[2019-07-20] MEDS: INSULIN REGULAR, HUMAN 100 UNIT/1 ML 3ML VIAL SQ SCH ×4 (09:45→20:39)
[2019-07-20 11:02] LABS: CREATINE KINASE MB 2.1 ng/mL (0-5.0)
--- NOTE | 2019-07-20 11:18 | NUR ---
Pt. expressed no spiritual or emotional concerns. [employer] provided hospitality and information on how to reach coordinator of online programs, if needed. No need to follow at this time. MILDRED THOMAS [facility] Spiritual Care Department O: [phone]
--- NOTE | 2019-07-20 13:03 | NUR ---
NO PHYSICAL THERAPY EVAL OR ANY IV ABX, NO CRITERIA FOR SNF AT THIS TIME
[2019-07-20] MEDS ORDERED: ONDANSETRON HCL 4 MG ORAL DISINTEGRATING TAB PO PRN (13:15)
--- NOTE | 2019-07-20 14:45 | NUR ---
SPOKE WITH PT WHOM DEFERRED ME TO HER DAUGHTER, SPOKE ABOUT PLACEMENT OPTIONS, STATES WAS AT [facility] HAPPY THERE, GAVE VERBAL CONSENT TO FAX CLINICALS IN THE MORNING TO BEING PROCESS ONCE ALL DOCUMENTS ARE TOGETHER.
[2019-07-20] MEDS ORDERED: AMLODIPINE BESYLATE 10 MG TAB PO PRN (15:00)
--- NOTE | 2019-07-20 17:39 | NUR ---
Called dialysis to verify for tomorrow [phone].
--- NOTE | 2019-07-20 19:00 | Consultation ---
DATE OF CONSULTATION: 07/20/2019 Cardiology Consultation CONSULTING PHYSICIAN: Wai Prince MD, Interventional Cardiology. REASON FOR CONSULTATION: Chest pain. HISTORY OF PRESENT ILLNESS: A 59-year-old woman with history of diabetes mellitus type 2, hypertension, COPD, history of CVI x2, coronary artery disease with previous stents, history of colon cancer, status post colon resection, end-stage renal disease, depression and CKD, presents with complaints of chest discomfort and shortness of breath. She reports having self-discontinued her home cardiovascular medications including antiplatelet therapy within the last two weeks after running out of medications. She feels better since admission and currently denies any active chest discomfort. Imaging studies were remarkable for mediastinal lymphadenopathy, right breast 3.2 cm mass and left adrenal mass 5.2 cm. Cardiac biomarkers are being trended so far. Troponin I 0.038. PAST MEDICAL HISTORY: As per HPI. ALLERGIES: NO KNOWN DRUG ALLERGIES. SOCIAL HISTORY: History of smoking. No recent alcohol or drug use. FAMILY HISTORY: Noncontributory. PHYSICAL EXAMINATION: VITAL SIGNS: Temperature 98.1, heart rate 93, blood pressure 175/83, respiratory rate 17, O2 saturation 91%. GENERAL: Chronically ill-appearing, alert, oriented. NECK: No JVD. CHEST: With scattered rhonchi and wheezing. CARDIOVASCULAR: Regular rate and rhythm. Normal S1, S2. Systolic ejection murmur 1/6. No S3. No S4. ABDOMEN: Soft. Bowel sounds positive. EXTREMITIES: Trace edema. CARDIOVASCULAR MEDICATIONS: Reviewed. Nitroglycerin p.r.n., carvedilol 3.125 mg every 12 hours, aspirin 81 mg daily, clopidogrel 75 mg daily, clonidine 0.2 mg t.i.d., ticagrelor 90 mg b.i.d., atorvastatin 40 mg at bedtime. LABORATORY DATA: Studies reviewed. COVID-[address] negative for pulmonary embolism noted. Mediastinal lymphadenopathy 32 mm right breast mass and 52 mm left adrenal mass. Sodium 138, potassium 4.1, chloride 98, bicarbonate 24, BUN 34, creatinine 3.8, glucose 277. White blood cell 7.5, hemoglobin 8.7, platelets 341. PT 13.8, PTT 45.5, INR 1. AST 10, ALT 13, total bilirubin 0.8, alkaline phosphatase 103. EKG sinus tachycardia, PVCs, prolonged QT. ASSESSMENT AND PLAN: 1. Chest pain in the setting of noncompliance with cardiovascular medications and history of coronary artery disease with previous recent stent. 2. Imaging studies suspicious for underlying malignancy with right breast mass and left adrenal mass as well as mediastinal lymphadenopathy. 3. Anemia. 4. End-stage renal disease. 5. Diabetes and hypertension. 6. History of CVA. 7. History of colon cancer, status post resection. RECOMMEND: 1. Continue to trend cardiac biomarkers. 2. I agree with continuing current cardiovascular medications with the following change, up titrate carvedilol to 6.25 mg q.12 hours. 3. Discontinue clopidogrel as patient is on aspirin and Brilinta already. 4. Obtain echocardiogram. 5. Further recommendations to follow. We will follow closely with you. MD JEREMY Mehta/EVER /[id number]
--- NOTE | 2019-07-20 19:12 | NUR ---
Completed bedside report and rounding with oncoming night nurse. Patient in stable condition, no s/s of distress noted. No pain voiced. Telemetry applied. Bed in lowest position and locked. Call light within reach.
[2019-07-20] MEDS: ATORVASTATIN 20 MG TAB PO SCH (20:39)
[2019-07-20] MEDS ORDERED: CELECOXIB 200 MG CAP PO PRN (21:30)
--- NOTE | 2019-07-20 22:40 | Consultation ---
DATE OF CONSULTATION: Initial Nephrology Consultation Report REASON FOR CONSULTATION: End-stage renal disease. HISTORY OF PRESENT ILLNESS: Ms. Viki Jeffery is a 59-year-old lady, who is very well-known to me and she was recently discharged from [facility] in [place]. The patient was re-admitted to the hospital. The patient apparently was on dialysis yesterday, however, she developed some high blood pressure and actually apparently had some type of dysrhythmia and so, she was referred to the emergency room over here for further evaluation. The patient states that she was discharged from the hospital, but she did not have any of her medicines upon discharge. The patient, at the present time, has no chest pain, no shortness of breath. She is talking in full sentences and she just feels a little bit kind of deconditioned. PAST MEDICAL HISTORY: 1. Hypertension. 2. Diabetes. 3. Chronic kidney disease, stage 5. She has been on dialysis for about three years. 4. COPD. 5. Stroke in the past. 6. Coronary artery disease. 7. Depression. PAST SURGICAL HISTORY: 1. Colon resection. 2. She has AV fistula placed in the left arm. SOCIAL HISTORY: No smoking. No EtOH. No HIV risk factor. No IV drug abuse. REVIEW OF SYSTEMS: As per HPI. CARDIOVASCULAR: She is having some palpitations every now and then. No shortness of breath at this time. GI: No symptoms. No dyspepsia. No nausea, vomiting : No symptoms. PHYSICAL EXAMINATION: VITAL SIGNS: Blood pressure 155/80 and pulse is 80. GENERAL: The patient is in no acute distress. HEENT: No increased JVD. CARDIOVASCULAR: Regular rate rhythm. LUNGS: Clear to auscultation. ABDOMEN: Positive bowel sounds. EXTREMITIES: No edema, cyanosis, or clubbing. The patient has an AV fistula in the left arm. LABORATORY RESULTS: Sodium 138, potassium 4.1, chloride 98, bicarb 24, BUN and creatinine 30 and 3.8 respectively. Hematocrit is 28. IMPRESSION/PLAN: 1. Chronic kidney disease, stage 5. 2. Hypertension, uncontrolled. 3. Dysrhythmia. 4. Atrial fibrillation. 5. Anemia. 6. Diabetes. 7. Atherosclerotic peripheral vascular disease. 8. Cerebrovascular accident in the past. PLAN: The patient is hypertensive. She has been placed on her blood pressure medications. I will go ahead and add Norvasc. She is being evaluated by Cardiology also for the dysrhythmia. Volume status and electrolytes are okay today. She is due for dialysis Friday, Friday, and Friday. We will go ahead and dialyze her tomorrow. We will go ahead and place her on some Aranesp for her anemia of chronic disease. I will follow up patient with you. Thank you for this consultation. Ather MD OWEN Macario/EVER /[id number]
[2019-07-21] VITALS (7 sets, daily range): BP systolic 117–143; BP diastolic 61–70
[2019-07-21] MEDS: ALBUTEROL/IPRATROPIUM 3 ML NEB INH PRN ×4 (00:35→20:45)
[2019-07-21 06:13] LABS: ANION GAP 19.4 mmol/L (8-16); CALCIUM 9.4 mg/dL (8.4-10.2); CREATININE, SERUM 5.85 mg/dL (0.57-1.11); POTASSIUM 5.4 mmol/L (3.5-5.1)
--- NOTE | 2019-07-21 06:37 | NUR ---
0620 lab call to report Glucose 58 0625 Snack given 0630 Snack completed, Will recheck FSBS 0645. Will continue to monitor.
--- NOTE | 2019-07-21 06:45 | NUR ---
FSBS 130 after snacks given. Will continue to monitor.
--- NOTE | 2019-07-21 07:05 | NUR ---
Bedside report and walking rounds completed with on coming nurse. Patient in bed with call light within reach. No issues or concerns noted.
[2019-07-21] MEDS: INSULIN REGULAR, HUMAN 100 UNIT/1 ML 3ML VIAL SQ SCH ×4 (07:30→20:05)
--- NOTE | 2019-07-21 08:51 | NUR ---
FAXED CLINICALS TO [facility] [address], COMPLETED RTF, PASRR AND COVID FORM, OBTAINED IMM
[2019-07-21] MEDS: NON-FORMULARY MEDICATION ([Trelegy] 1 INH) INH SCH (09:00)
[2019-07-21] MEDS: SEVELAMER CARBONATE 800 MG TAB PO SCH ×3 (09:01→16:50)
[2019-07-21] MEDS: CLONIDINE HCL 0.2 MG TAB PO SCH ×3 (09:02→21:00)
[2019-07-21] MEDS: ASPIRIN 81 MG CHEW TAB PO SCH (09:02)
[2019-07-21] MEDS: ASPIRIN 81 MG ENTERIC COATED PO SCH (09:02)
[2019-07-21] MEDS: FAMOTIDINE 20 MG/2 ML VIAL IV SCH ×2 (09:02→23:40)
[2019-07-21] MEDS: CARVEDILOL 3.125 MG TAB PO SCH ×2 (09:03→23:41)
[2019-07-21] MEDS: ESCITALOPRAM OXALATE 10 MG TAB PO SCH (09:03)
[2019-07-21] MEDS: CLOPIDOGREL BISULFATE 75 MG TAB PO SCH (09:04)
[2019-07-21] MEDS: INSULIN GLARGINE 100 UNITS/ML VIAL SQ SCH (09:09)
[2019-07-21] MEDS: MORPHINE SULFATE 2 MG/ML SYR 1ML IV PRN (09:12)
--- NOTE | 2019-07-21 16:01 | NUR ---
Patients blood sugar is 58 gave dextrose to bring blood sugar up will recheck blood sugar.
--- NOTE | 2019-07-21 16:19 | Progress Note ---
DATE: 07/21/2019 Cardiology Progress Note SUBJECTIVE: Denies any recurrent chest pain or shortness of breath. OBJECTIVE: VITAL SIGNS: Temperature 97.4, heart rate 66, blood pressure 129/61, respiratory rate 24, and O2 saturation 100%. GENERAL: In no acute distress. Alert. NECK: No JVD. CHEST: Clear to auscultation. CARDIOVASCULAR: Regular rate and rhythm. Normal S1 and S2. Systolic ejection murmur. No S3 or S4. ABDOMEN: Soft. Bowel sounds positive. EXTREMITIES: Trace edema. CARDIOVASCULAR MEDICATIONS: Reviewed. Clopidogrel 75 mg daily, clonidine 0.2 mg t.i.d., amlodipine 10 mg daily, nitroglycerin p.r.n., aspirin 81 mg daily, carvedilol 6.25 mg every 12 hours, and atorvastatin 40 mg at bedtime. STUDIES: Reviewed. Sodium 137, potassium 5.4, chloride 99, bicarbonate 24, BUN 51, creatinine 5.8, and glucose 58. White blood cell 7.5, hemoglobin 8.7, and platelets 341. INR 1. AST 10 and ALT 13. ASSESSMENT AND PLAN: A 59-year-old woman presents with, 1. Noncompliance with medication in the setting hypertensive urgency and type 2 myocardial infarction. 2. Has underlying coronary artery disease and previous stents. 3. Has severe left ventricular hypertrophy, qspht-fo-dbhbltr diastolic heart failure. 4. End-stage renal disease, on scheduled dialysis. 5. Diabetes. 6. Hypertension. 7. Chronic obstructive pulmonary disease. RECOMMEND: 1. Anemia workup. 2. Continue current cardiovascular medications. Blood pressure has achieved adequate control. 3. Continue dual antiplatelet therapy. 4. Severe left ventricular hypertrophy in the setting of end-stage renal disease confer a guarded prognosis. MD JEREMY Mehta/EVER /[id number]
--- NOTE | 2019-07-21 16:31 | NUR ---
Rechecked the blood sugar is 137.
--- NOTE | 2019-07-21 16:59 | NUR ---
Called dialysis (x2)to verify that the dialysis is coming [phone].
--- NOTE | 2019-07-21 18:07 | NUR ---
The dialysis nurse Natalia hauser let this nurse know that he will dialysis the patient around 11.
[2019-07-21] MEDS ORDERED: SODIUM CHLORIDE 0.9% 1000ML 2,000 ML ONE (19:01)
[2019-07-21] MEDS ORDERED: EPOETIN ALFA-EPBX 10,000 UNIT/ML VIAL SC SCH (20:00)
[2019-07-21] MEDS: ATORVASTATIN 20 MG TAB PO SCH (23:41)
--- NOTE | 2019-07-22 01:45 | NUR ---
PATIENT REQUESTED TO CHECK BS. BS CHECKED 40. SNACK GIVEN. RECHECK BS 115
[2019-07-22 05:31] VITALS: BP 138/66
[2019-07-22] MEDS: ALBUTEROL/IPRATROPIUM 3 ML NEB INH PRN ×2 (06:41→13:03)
--- NOTE | 2019-07-22 07:36 | NUR ---
[facility] DISCHARGE INFORMATION PATIENT HAS BEEN ACCEPTED TO: NAME: CHARLENE FUENTES ADDRESS: [address] [place] [address] ACCEPTING RADIATION THERAPIST: MARLO IRAHETA ACCEPTING MD:TRINH ROOM: 408B NURSE CALL REPORT TO: [phone] IMM SIGNED AND OBTAINED (if applicable): IMM THE FOLLOWING DOCUMENTS MUST ACCOMPANY PATIENT FOR TRANSFER: COPIED CHART: PACKET
[2019-07-22 08:01] VITALS: BP 137/64
[2019-07-22] MEDS: ASPIRIN 81 MG CHEW TAB PO SCH (09:00)
[2019-07-22] MEDS: NON-FORMULARY MEDICATION ([Trelegy] 1 INH) INH SCH (09:00)
[2019-07-22 09:50] VITALS: BP 137/64
[2019-07-22] MEDS: FAMOTIDINE 20 MG/2 ML VIAL IV SCH (10:36)
[2019-07-22] MEDS: SEVELAMER CARBONATE 800 MG TAB PO SCH ×2 (10:36→13:02)
[2019-07-22] MEDS: ASPIRIN 81 MG ENTERIC COATED PO SCH (10:47)
[2019-07-22] MEDS: CLONIDINE HCL 0.2 MG TAB PO SCH (10:48)
[2019-07-22] MEDS: ESCITALOPRAM OXALATE 10 MG TAB PO SCH (10:49)
[2019-07-22] MEDS: CARVEDILOL 3.125 MG TAB PO SCH (10:49)
[2019-07-22] MEDS: CLOPIDOGREL BISULFATE 75 MG TAB PO SCH (10:50)
[2019-07-22] MEDS: INSULIN REGULAR, HUMAN 100 UNIT/1 ML 3ML VIAL SQ SCH ×2 (11:44→13:02)
[2019-07-22] MEDS: INSULIN GLARGINE 100 UNITS/ML VIAL SQ SCH (11:44)
[2019-07-22 11:54] VITALS: BP 160/72
--- NOTE | 2019-07-22 23:16 | Progress Note ---
DATE: 07/22/2019 Cardiology Progress Note SUBJECTIVE: No complaints. Denies chest pain or shortness of breath. OBJECTIVE: VITAL SIGNS: Temperature 98.4, heart rate 67, blood pressure 137/64, respiratory rate 22, and O2 saturation 100%. BMI 23. GENERAL: In no acute distress. Alert. NECK: No JVD. CHEST: Scattered rhonchi. CARDIOVASCULAR: Regular rate and rhythm. Normal S1 and S2. Systolic ejection murmur. No S3 or S4. ABDOMEN: Soft. Bowel sounds positive. EXTREMITIES: No edema. CARDIOVASCULAR MEDICATIONS: Reviewed. Clopidogrel 75 mg daily, clonidine 0.2 mg t.i.d., amlodipine 10 mg daily, nitroglycerin p.r.n., aspirin 81 mg daily, carvedilol 6.25 mg every 12 hours, and atorvastatin 40 mg at bedtime. STUDIES: Reviewed. Potassium 5.4, bicarbonate 24, BUN 51, creatinine 5.8, and glucose 58. White blood cell 7.8, hemoglobin 8.7, and platelets 341. ASSESSMENT AND PLAN: A 59-year-old woman presents with, 1. Skcjl-rt-qacsvko diastolic heart failure in the setting of severe ventricular hypertrophy. 2. Coronary artery disease with previous coronary stents with noncompliance with medications. 3. Hypertensive urgency, now improved blood pressure rates. 4. End-stage renal disease. 5. Chronic obstructive pulmonary disease. 6. Anemia. RECOMMEND: 1. Continue current cardiovascular medications. The patient's symptoms have improved since instituting these medications and adherence to this regimen is being stressed. 2. Volume optimization per Nephrology expertise. 3. Anemia workup. Wai Prince MD AFDia/MODL /[id number]
--- NOTE | 2019-08-16 22:38 | Discharge Summary ---
CHIEF COMPLAINT: Increased shortness of breath, profound weakness. FINAL DIAGNOSES: End-stage renal disease, anemia, hypertension, diabetes type 2. DISPOSITION: Transferred to the skilled facility. HOSPITAL COURSE: A 59-year-old female with known history of diabetes type 2, hypertension, anemia, and end-stage renal disease, brought to the ER with issues of increased shortness of breath and profound weakness. No chest pain. No fever or chills. No other complaints. With further review and evaluation in the ER, the patient was admitted to the facility for continuation of care regarding shortness of breath, pulmonary edema, end-stage renal disease, diabetes type 2, anemia. We will be addressing dialysis issue and make her schedule. Continue to monitor her blood sugar. The patient requests to be placed in a halfway. With admission, she was being monitored by Dr. Wright of Cardiology regarding some issues of complaints of chest pain. With his review, his impression was chest pain in the setting of noncompliance with cardiovascular medication with history of coronary artery disease with previous recent stent. Images and studies suspicious for underlying malignancy with right breast mass and left adrenal mass as well as mediastinal lymphadenopathy. Anemia. End-stage renal disease. Diabetes and hypertension. History of CVA. History of colon cancer, status post resection. Agree to continue following cardiac biomarkers. Continue cardiac medications. We will be increasing her carvedilol to 6.25 mg, 12. We will be taking the patient off clopidogrel. She is already receiving aspirin and Brilinta. With her end-stage renal disease, Nephrology was called in to maintain dialysis schedule and impression was made of chronic kidney disease stage 5, hypertension, uncontrolled; dysrhythmia, atrial fib, anemia, diabetes, atherosclerotic peripheral vascular disease, history of vascular accident in the past, stated the patient is hypertensive, we will be placing her on blood pressure medications. We will be adding Norvasc to her protocols. She is also receiving care by Cardiology as previously mentioned. She will continue on her Friday, Friday, and Friday dialysis schedule and we will start the patient to receive some Aranesp for her anemia of chronic disease. From the ER, the patient is placed on the Med-Surg floor, was on a renal diet, seemed to be depressed. Continues and requests to be placed in a halfway. She was started on her daily medications. She was placed on IV fluids. She was continuing her insulin protocols. Continuing her anti-platelet therapy as well. Laboratory studies were further monitored along with her daily vital signs. We will be discussing her situation with criminal justice social worker to see if she meets requirement for halfway placement. Dialysis was performed as mentioned. Blood sugars were continued to be monitored. Discussions were being set to place the patient in the halfway environment versus skilled facility. She stabilized and she was able to be discharged on 07/22/2019. Stable, but guarded condition. [facility]. IMAGING DATA: A CT scan of chest reveals development of ground-glass opacity, likely edema, although in fact as possible throughout both lungs, associated with small bilateral pleural effusions and peripheral atelectasis at the lung bases in the right middle lobe and in the lingula. No CT evidence for acute pulmonary embolism. Development of extensive mediastinal adenopathy which may be related to infection or neoplasm. Large left adrenal mass measuring 5.2 cm with indeterminate significant. Suspected 3.2 cm right breast mass correlate with mammography is recommended, extensive coronary artery calcification is seen. Routine chest x-ray shows increased interstitial markings present bilaterally as well as prominence of the central pulmonary vasculature, which can be seen in the setting of edema. There is no evidence for large focal consolidations or pneumothorax. There is blunting of the costophrenic angles and trace effusions are possible. The cardiac silhouette remains enlarged. LABORATORY STUDIES: CBC on the patient shows a normal white cell count, H and H was 8.7 and 28.4, and platelets were stable. Chemistry; initial study electrolytes stable. Kidney functions; BUN 34, creatinine 3.80, glucose 277. First set of cardiac markers were stable. Second set showed troponin 1 now at 0.469. Third troponin was at 0.368. BNP noted to be at 2783.6. Glucose on 07/20 fell to 58 and on the same date potassium was noted to be at 5.4, final glucose 190, final potassium 5.4. The patient stabilized and was discharged to [facility]. At that location, she will continue with her current diet protocols. IVs were discontinued. She will be continuing on her Friday, Friday, and Friday dialysis schedule. She was transferred with her medication sheet and also receiving some rehab. I will continue to monitor her status at that facility on a routine basis. Staff will be contacting me as needed. Dictated by DARYN Henson MD XAVI Crawford/EVER /[id number]
== END 2019-07-22 15:11 | DRG 280 ==
LOC: ER 13:35 → ERHOLD 16:24 → ER 19:11 → MED/SURG2 19:29
PROC: 5A1D70Z Performance of Urinary Filtration, Intermittent, Less than 6 Hours Per Day (ICD-10-PCS; principal; 2019-07-21)
DX: I13.2 Hypertensive heart and chronic kidney disease with heart failure and with stage 5 chronic kidney disease, or end stage renal disease (principal); N18.6 End stage renal disease; I21.A1 Myocardial infarction type 2; I50.33 Acute on chronic diastolic (congestive) heart failure; E11.22 Type 2 diabetes mellitus with diabetic chronic kidney disease; Z99.2 Dependence on renal dialysis; Z79.4 Long term (current) use of insulin; Z86.73 Personal history of transient ischemic attack (TIA), and cerebral infarction without residual deficits; J44.9 Chronic obstructive pulmonary disease, unspecified; F32.9 Major depressive disorder, single episode, unspecified; I25.10 Atherosclerotic heart disease of native coronary artery without angina pectoris; E11.51 Type 2 diabetes mellitus with diabetic peripheral angiopathy without gangrene; Z85.038 Personal history of other malignant neoplasm of large intestine; D64.9 Anemia, unspecified; Z95.5 Presence of coronary angioplasty implant and graft
CPT/HCPCS: 36415; 71045; 71260; 80048; 80053; 82550; 82553; 82948; 83735; 83880; 84443; 84484; 85025; 85610; 85730; 86704; 86706; 87340; 93005; 93306; 94640; 97139; 99284; J1815; J1817; J2270; J7030; J7799; Q9967; U0002

== ENCOUNTER 2019-12-28 12:12 | Inpatient (IN) | payer MEDICARE ==
[~2019-12-28] VITALS: Ht 165.1 cm; Wt 63.5 kg
[~2019-12-28 12:12] MED LIST changes: +BRILINTA90 MG PO; +CLONIDINE HCL0.2 MG PO; +COMBIVENT RESPIM4 GM IH; +LEVEMIR FL100 UNIT/1 SC; +LMX 45 G1 TOP
--- NOTE | 2019-12-28 13:15 | Diagnostic Imaging Report ---
EXAMINATION: Head CT HISTORY: 59-year-old female status post fall, imbalance, pain. COMPARISON: Head CT 04/24/2019 TECHNIQUE: Helical axial images of the head were obtained. Reformatted coronal and sagittal images from the axial data. Dose modulation, iterative reconstruction, and/or weight based adjustment of the mA/kV was utilized to reduce the radiation dose to as low as reasonably achievable. FINDINGS: Parenchyma: 1. Persistent severe conference of reticular pulmonary hypodensities, most likely nonspecific chronic microvascular ischemic changes. 2. Also unchanged tiny chronic cortical infarct in the left superior parietal lobule and right superior cerebellum. 3. Small chronic lacunar infarcts in the left head of the caudate, left putamen and left medial thalamus as well as in the right frontal daniel radiata. 4. Physiologic calcification of the globi pallidi. 5. No mass or hemorrhage. No CT evidence of acute territorial vascular insult. Extra-axial spaces:No abnormal density. No extra-axial fluid collections Brain volume: Moderate generalized brain volume loss, more than what is expected for patient's stated age. Ventricles: No hydrocephalus or displacement. Arteries: No density suggestive of thrombus. Dural sinuses: No abnormal density. Foramen magnum: No mass, Chiari malformation, or basilar invagination. Sella: No obvious mass. Paranasal/mastoid sinuses: Persistent opacification of the partially visualized left maxillary sinus. Skull/Scalp: No lytic or blastic lesions. No fractures. IMPRESSION: 1. No acute post traumatic intracranial abnormalities, particularly no hemorrhage. 2. Unchanged moderate chronic microvascular ischemic changes and small chronic infarcts compared to head CT of 04/24/2019. 3. Moderate generalized brain volume loss. Signed by: Dr. Susan Castaneda M.D. on 12/28/2019 1:12 PM
--- NOTE | 2019-12-28 13:20 | NUR ---
RECEIVED REPORT FROM MARIALUISA DONOHUE FROM ER. PATIENT ARRIVED TO THE UNIT @ 1320 VIA STRETCHER. PATIENT INSTABLE CONDITION, NO S/S OF DISTRESS NOTED. NO PAIN VOICED. RESPIRATIONS EVEN AND NONLABORED. PATIENT ABLE TO VOICE NEEDS. IV SITES ASYMPTOMATIC AND PATENT, TRANSPARENT DRESSING C/D/I. BRUISING NOTED TO THE LEFT HIP. BED ALARM APPLIED. BED IN LOWEST POSITION AND LOCKED, SIDE RAILS X 2, NONSKID SOCKS APPLIED. CALL LIGHT WITHIN REACH.
--- OUTSIDE RECORDS SUMMARY | 2019-12-28 13:23 | XMS REPORT | Clinical Summary ---
Author Author [facility] Organization [facility] Address Unknown Phone Unavailable Care Team Providers Care Archery Equipment Hay Sorter Name Role Phone Asked, No Pcp PCP [...] INFLUENZA VACCINE 09/11/2019 Results Not on fileafter 12/27/2018 Insurance Type Payer Benefit Subscriber ID Effective Phone Address Plan / Dates Group Medicare MEDICARE MEDICARE [id number] DENY, PART A AND resent [place] Advance Directives For more information, please contact: [phone] Patient Endoscopy Technican Explanation Type Date Recorded Advance Directives, Living Will and Medical Power of Licensing Registration Examiner
--- OUTSIDE RECORDS SUMMARY | 2019-12-28 13:24 | XMS REPORT | Continuity of Care Document ---
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 Item Value Reference Range Interpretation Comments Mean Corpuscular Hemoglobin (test code = 785-6) 31.7 28-32 [facility] TylerMean Corpuscular Hemoglobin Concent 2019-05-13 06:15:00* Test Item Value Reference Range Interpretation Comments Mean Corpuscular Hemoglobin Concent (test code = 786-4) 29.3 31-35 L [facility] TylerRed Cell Distribution Lcoxg3254-28-32 06:15:00* Test Item Value Reference Range Interpretation Comments Red Cell Distribution Width (test code = 92625-3) 17.2 11.7 -14.4 H [facility] TylerPlatelet Rhtos5535-98-72 06:15:00* Test Item Value Reference Range Interpretation Comments Platelet Count (test code = 777-3) 308 140-360 [facility] TylerNeutrophils (%) (Auto)2019-05-13 06:15:00 * Test Item Value Reference Range Interpretation Comments Neutrophils (%) (Auto) (test code = 97854-4) 60.3 38.7-80.0 [facility] TylerLymphocytes (%) (Auto)2019-05-13 06:15:00 * Test Item Value Reference Range Interpretation Comments Lymphocytes (%) (Auto) (test code = 736-9) 17.0 18.0-39.1 L [facility] TylerMonocytes (%) (Auto)2019-05-13 06:15:00* Test Item Value Reference Range Interpretation Comments Monocytes (%) (Auto) (test code = 5905-5) 19.0 4.4-11.3 H [facility] TylerEosinophils (%) (Auto)2019-05-13 06:15:00 * Test Item Value Reference Range Interpretation Comments Eosinophils (%) (Auto) (test code = 713-8) 2.9 0.0-6.0 [facility] TylerBasophils (%) (Auto)2019-05-13 06:15:00* Test Item Value Reference Range Interpretation Comments Basophils (%) (Auto) (test code = 706-2) 0.4 0.0-1.0 [facility] TylerIM GRANULOCYTES %2019-05-13 06:15:00* Test Item Value Reference Range Interpretation Comments IM GRANULOCYTES % (test code = IM GRANULOCYTES %) 0.4 0.0- 1.0 [facility] TylerNeutrophils # (Auto)2019-05-13 06:15:00* Test Item Value Reference Range Interpretation Comments Neutrophils # (Auto) (test code = 751-8) 3.1 2.1-6.9 [facility] TylerLymphocytes # (Auto)2019-05-13 06:15:00* Test Item Value Reference Range Interpretation Comments Lymphocytes # (Auto) (test code = 68243-3) 0.9 1.0-3.2 L [facility] TylerMonocytes # (Auto)2019-05-13 06:15:00* Test Item Value Reference Range Interpretation Comments Monocytes # (Auto) (test code = 742-7) 1.0 0.2-0.8 H [facility] TylerEosinophils # (Auto)2019-05-13 06:15:00* Test Item Value Reference Range Interpretation Comments Eosinophils # (Auto) (test code = 711-2) 0.2 0.0-0.4 [facility] TylerBasophils # (Auto)2019-05-13 06:15:00* Test Item Value Reference Range Interpretation Comments Basophils # (Auto) (test code = 704-7) 0.0 0.0-0.1 [facility] TylerAbsolute Immature Granulocyte (auto 2019-05-13 06:15:00* Test Item Value Reference Range Interpretation Comments Absolute Immature Granulocyte (auto (carine t code = Absolute Immature Granulocyte (auto) 0.02 0-0.1 [facility] TylerPercent Reticulocyte Uyzdo7797-97-20 06:14:00* Test Item Value Reference Range Interpretation Comments Percent Reticulocyte Count (test code = 04859-1) 7.9 0.8-2 .2 H [facility] TylerHepatitis B Surface Mvfotov3318-97-47 08:55:00* Test Item Value Reference Range Interpretation Comments Hepatitis B Surface Antigen (test code = 5196-1) Negative Negat henry Performed at: - Lab[address], [place], [place] [id number] Director: Edmond Mcneil MD, Phone: [phone] [facility] HospitalABDOMEN-1VIEW (KUB)2019-05-11 06:38:00 [facility] [address] [place], [place] [address] Patient Name: YARITZA JOSEPH MR #: [id number] : 1960 Age/Sex: 58/F Req #: [id number] Adm Physician: BRENDAN TSANG MD Ordered by: LARRY TSANG MD Report #: [id number] Location: MED/SURG2 Room/Bed: [facility] Procedure: [id number] DX/ABDOMEN-1VIEW (KUB) Exam Date: 05/11/19 Exam Donald e: 0610 REPORT STATUS: Signed Ab lucia/CARLOS INDICATION: sbo [id number] COMPARISON: CT ches t, abdomen, pelvis [...] 04/12 COPY TO: LARRY TSANG MD Prothrombin Eufk4224-50-71 06:13:00* Test Item Value Reference Range Interpretation Comments Prothrombin Time (test code = 5902-2) 14.8 11.9-14.5 H [facility] TylerProthromb Time International Ratio 2019-05-11 06:13:00* Test Item Value Reference Range Interpretation Comments Prothromb Time International Ratio (test code = 6301-6) 1.09 Oral Anticoagulant Therapy INR Values:1. Low Intensity Therapy 1.5 - 2.02 . Moderate Intensity Therapy 2.0 - 3.03. High Intensity Therapy(1) 2.5 - 3. 54. High Intensity Therapy(2) 3.0 - 4.05. Panic Value INR > 5.0 [facility] TylerCT CHEST H7519-24-88 10:37:00 [facility] [address] [place] [address] Patient Name: YARITZA JOSEPH MR #: [id number] : 1960 Age/Sex: 58/F Req #: [id number] Adm Physician: BRENDAN TSANG MD Ordered by: SRIRAM HIDALGO DO Report #: [id number] Location: [facility] Room/Bed: [place] [address] Procedure: [id number] C T/CT CHEST W Exam Date: 05/10/19 Exam Time: 0920 REPORT STATUS: Signed EXAM: CT Ches t, [...] HIDALGO DO CT ABDOMEN/PELVIS W 2019-05-10 10:37:00 [place] [address] Patient Name: YARITZA JOSEPH MR #: [id number] : 1960 Age/Sex: 58/F Req #: [id number] Adm Physician: BRENDAN TSANG MD Ordered by: SRIRAM HIDALGO DO Report #: [id number] Location: [facility] Room/Bed: [place] [address] Procedure: C T/CT ABDOMEN/PELVIS W Exam Date: 05/10/19 Exam Time: 0920 REPORT STATUS: Signed EXAM: CT Chest, Abdomen [...] HIDALGO DO CHEST 2 VIEWS 2019-05-10 07:23:00 [place] [address] Patient Name: YARITZA JOSEPH MR #: [id number] : 1960 Age/Sex: 58/F Req #: [id number] Adm Physician: Ordered by: SRIRAM HIDALGO DO Report #: [id number] Location: ER Room/Bed: Procedure: [id number] DX/ CHEST 2 VIEWS Exam Date: 05/10/19 Exam Time: 06 REPORT STATUS: Signed EXAMINATION: CHEST 2 VIEWS [...] COPY TO: SRIRAM HIDALGO DO CT ABDOMEN/PELVIS GJ1844-35-35 06:42:00 [place] [address] Patient Name: YARITZA JOSEPH MR #: [id number] : 1960 Age/Sex: 58/F Req #: [id number] Adm Physician: Ordered by: SRIRAM HIDALGO DO Report #: [id number] Location: ER Room/Bed: Procedure: [id number] CT/ CT ABDOMEN/PELVIS WO Exam Date: 05/10/19 Exam Time: 06 REPORT STATUS: Signed EXAM: CT Abdomen and [...] COPY TO: SRIRAM HIDALGO DO Lactic Acid Nnmum9353-32-11 05:48:00* Test Item Value Reference Range Interpretation Comments Lactic Acid Level (test code = Lactic Acid Level) 1.5 0.5- 2.0 [facility] TylerB-Type Natriuretic Rvwkruh0255-88-47 05:45:00* Test Item Value Reference Range Interpretation Comments B-Type Natriuretic Peptide (test code = 62069-1) 2115.2 0-100 H [facility] TylerCreatine Jwzmhn9850-95-97 05:45:00* Test Item Value Reference Range Interpretation Comments Creatine Kinase (test code = 2157-6) 13 29-168 L [facility] TylerCreatine Kinase FC1742-66-83 05:45:00* Test Item Value Reference Range Interpretation Comments Creatine Kinase MB (test code = 97542-9) 1.70 0-5.0 [facility] TylerTroponin A3607-86-26 05:45:00* Test Item Value Reference Range Interpretation Comments Troponin I (test code = 62958-6) 0.009 0-0.300 [facility] Zutteps2388-72-90 11:36:00* Test Item Value Reference Range Interpretation Comments Blood Culture (test code = 05931664) NO GROWTH AFTER 72 HOURS [facility] Vunvgrd0908-99-14 16:21:00* Test Item Value Reference Range Interpretation Comments Bedside Glucose (test code = 32801-6) 155 70-120 H Meter ID: [id number] [facility] Glucose 2019-04-27 16:21:00* Test Item Value Reference Range Interpretation Comments Bedside Glucose (test code = 14773-7) 155 70-120 H Meter ID: [id number] Medical [facility] Culture 2019-04-27 11:36:00* Test Item Value Reference Range Interpretation Comments Blood Culture (test code = 56305802) NO GROWTH AFTER 48 HOURS [facility] CFA2311-23-37 10:37:00* Test Item Value Reference Range Interpretation Comments Urine WBC (test code = 5821-4) 0-5 0-5 [facility] TylerUrine ASE5025-18-65 10:37:00* Test Item Value Reference Range Interpretation Comments Urine RBC (test code = 73911-9) 0-5 0-5 [facility] TylerUrine Scrgpubq5288-34-33 10:37:00* Test Item Value Reference Range Interpretation Comments Urine Bacteria (test code = 59054-3) RARE NONE [facility] TylerUrine Epithelial Jdffg2362-05-75 10:37:00 * Test Item Value Reference Range Interpretation Comments Urine Epithelial Cells (test code = 19618-2) FEW NONE [facility] TylerUrine KOD1735-03-62 10:37:00* Test Item Value Reference Range Interpretation Comments Urine WBC (test code = 5821-4) 0-5 0-5 [facility] TylerUrine SSS9856-51-33 10:37:00* Test Item Value Reference Range Interpretation Comments Urine RBC (test code = 49324-0) 0-5 0-5 [facility] TylerUrine Lkvfitww1234-90-66 10:37:00* Test Item Value Reference Range Interpretation Comments Urine Bacteria (test code = 13794-4) RARE NONE [facility] TylerUrine Epithelial Xridt1524-13-46 10:37:00 * Test Item Value Reference Range Interpretation Comments Urine Epithelial Cells (test code = 50761-2) FEW NONE [facility] TylerUrine Husha8939-07-89 10:30:00* Test Item Value Reference Range Interpretation Comments Urine Color (test code = 5778-6) YELLOW YELLOW [facility] TylerUrine Yhldvkq1023-62-21 10:30:00* Test Item Value Reference Range Interpretation Comments Urine Clarity (test code = 67392-7) CLEAR CLEAR [facility] Specific Ecjvnyn8113-54-55 10:30:00 * Test Item Value Reference Range Interpretation Comments Urine Specific [place] (test code = 5811-5) 1.025 1.010-1.02 5 [facility] TylerUrine vF2377-56-20 10:30:00* Test Item Value Reference Range Interpretation Comments Urine pH (test code = 02305-5) 8.5 5-7 [facility] TylerUrine Leukocyte Rxdnpura7018-28-92 10:30:00* Test Item Value Reference Range Interpretation Comments Urine Leukocyte Esterase (test code = 5799-2) NEGATIVE NEGATIVE [facility] TylerUrine Shxiyyv7217-15-47 10:30:00* Test Item Value Reference Range Interpretation Comments Urine Nitrite (test code = 26904-8) NEGATIVE NEGATIVE [facility] TylerUrine Eqthcqg0026-42-06 10:30:00* Test Item Value Reference Range Interpretation Comments Urine Protein (test code = 5804-0) >=300 NEGATIVE [facility] TylerUrine Glucose (UA)2019-04-26 10:30:00* Test Item Value Reference Range Interpretation Comments Urine Glucose (UA) (test code = 2349-9) 2+ NEGATIVE H [facility] TylerUrine Bvminrc8787-78-02 10:30:00* Test Item Value Reference Range Interpretation Comments Urine Ketones (test code = 07061-0) NEGATIVE NEGATIVE [facility] TylerUrine Ekzyrnieemsi0146-90-13 10:30:00* Test Item Value Reference Range Interpretation Comments Urine Urobilinogen (test code = 32484-8) 0.2 0.2-1 [facility] TylerUrine Ochhsxgju2878-11-79 10:30:00* Test Item Value Reference Range Interpretation Comments Urine Bilirubin (test code = 1978-6) NEGATIVE NEGATIVE [facility] TylerUrine Sxnbo0260-97-81 10:30:00* Test Item Value Reference Range Interpretation Comments Urine Blood (test code = 00339-6) NEGATIVE NEGATIVE [facility] TylerUrine Oanuu2686-14-10 10:30:00* Test Item Value Reference Range Interpretation Comments Urine Color (test code = 5778-6) YELLOW YELLOW [facility] TylerUrine Heduhgz0779-78-08 10:30:00* Test Item Value Reference Range Interpretation Comments Urine Clarity (test code = 45184-4) CLEAR CLEAR [facility] TylerUrine Specific Pjwcchg2689-21-05 10:30:00 * Test Item Value Reference Range Interpretation Comments Urine Specific [place] (test code = 5811-5) 1.025 1.010-1.02 5 [facility] TylerUrine cJ4999-40-55 10:30:00* Test Item Value Reference Range Interpretation Comments Urine pH (test code = 35878-6) 8.5 5-7 [facility] TylerUrine Leukocyte Frrwgwfr6380-99-05 10:30:00* Test Item Value Reference Range Interpretation Comments Urine Leukocyte Esterase (test code = 5799-2) NEGATIVE NEGATIVE [facility] TylerUrine Jxfcekl4516-47-91 10:30:00* Test Item Value Reference Range Interpretation Comments Urine Nitrite (test code = 17762-2) NEGATIVE NEGATIVE [facility] TylerUrine Vqzcvjb6454-24-19 10:30:00* Test Item Value Reference Range Interpretation Comments Urine Protein (test code = 5804-0) >=300 NEGATIVE [facility] TylerUrine Glucose (UA)2019-04-26 10:30:00* Test Item Value Reference Range Interpretation Comments Urine Glucose (UA) (test code = 2349-9) 2+ NEGATIVE H [facility] TylerUrine Arjujor9165-43-87 10:30:00* Test Item Value Reference Range Interpretation Comments Urine Ketones (test code = 68784-7) NEGATIVE NEGATIVE [facility] TylerUrine Dmzsfhqdawic9707-45-09 10:30:00* Test Item Value Reference Range Interpretation Comments Urine Urobilinogen (test code = 32239-7) 0.2 0.2-1 [facility] TylerUrine Onqcjtdto1160-51-21 10:30:00* Test Item Value Reference Range Interpretation Comments Urine Bilirubin (test code = 1978-6) NEGATIVE NEGATIVE [facility] TylerUrine Ibewi8168-17-95 10:30:00* Test Item Value Reference Range Interpretation Comments Urine Blood (test code = 49507-4) NEGATIVE NEGATIVE [facility] TylerHep[facility] Surface Antibody, Quant 2019-04-26 09:57:00* Test Item Value Reference Range Interpretation Comments Hepatitis B Surface Antibody, Quant (test code = 5194-6) Reactive Status of Immunity Anti-HBs Level -- NON REACTIVE: Inconsistent with Immunity 0.0 - 9.9REACTIVE:Consistent with Immunity >9.9 mIU/mL Performed at: [facility] [address] [id number] Director: Edmond Mcneil MD, Phone: [phone] Medical Center B Core Total Chfrsali8183-51-11 09:57:00* Test Item Value Reference Range Interpretation Comments Hepatitis B Core Total Antibody (test code = 69236-6) Negative [facility] TylerHep[facility] C Ggunadfv1918-53-68 09:57:00* Test Item Value Reference Range Interpretation Comments Hepatitis C Antibody (test code = 17474-3) <0.1 [facility] B Surface Vlntpks0582-68-59 09:57:00* Test Item Value Reference Range Interpretation Comments Hepatitis B Surface Antigen (test code = 5196-1) Negative [facility] B Surface Antibody, Quant 2019-04-26 09:57:00* Test Item Value Reference Range Interpretation Comments Hepatitis B Surface Antibody, Quant (test code = 5194-6) Reactive Status of Immunity Anti-HBs Level -- NON REACTIVE: Inconsistent with Immunity 0.0 - 9.9REACTIVE:Consistent with Immunity >9.9 mIU/mL Performed at: [facility] [employer] [id number] Director: Edmond Mcneil MD, Phone: [phone] Medical Center B Core Total Xmbdzltk2762-94-64 09:57:00* Test Item Value Reference Range Interpretation Comments Hepatitis B Core Total Antibody (test code = 01546-6) Negative [facility] C Xpapnlof3027-94-66 09:57:00* Test Item Value Reference Range Interpretation Comments Hepatitis C Antibody (test code = 10461-2) <0.1 [facility] B Surface Gimyuds7813-31-87 09:57:00* Test Item Value Reference Range Interpretation Comments Hepatitis B Surface Antigen (test code = 5196-1) Negative [facility] B Surface Antibody, Quant 2019-04-26 09:57:00* Test Item Value Reference Range Interpretation Comments Hepatitis B Surface Antibody, Quant (test code = 5194-6) Reactive Status of Immunity Anti-HBs Level -- NON REACTIVE: Inconsistent with Immunity 0.0 - 9.9REACTIVE:Consistent with Immunity >9.9 mIU/mL Performed at: [facility] [address] [id number] Director: Edmond Mcneil MD, Phone: [phone] Medical Center B Core Total Rexlyxgi8231-72-67 09:57:00* Test Item Value Reference Range Interpretation Comments Hepatitis B Core Total Antibody (test code = 88553-1) Negative [facility] C Djoyylhq6167-30-88 09:57:00* Test Item Value Reference Range Interpretation Comments Hepatitis C Antibody (test code = 87758-8) <0.1 [facility] TylerHepatitis B Surface Vettnyl1263-25-47 09:57:00* Test Item Value Reference Range Interpretation Comments Hepatitis B Surface Antigen (test code = 5196-1) Negative [facility] Obfse0328-36-12 06:27:00* Test Item Value Reference Range Interpretation Comments Sodium Level (test code = 2951-2) 140 136-145 [facility] TylerPotassium Onxlv1793-40-14 06:27:00* Test Item Value Reference Range Interpretation Comments Potassium Level (test code = 2823-3) 4.2 3.5-5.1 [facility] TylerChloride Zunpu3987-32-72 06:27:00* Test Item Value Reference Range Interpretation Comments Chloride Level (test code = 2075-0) 97 98-107 L [facility] TylerCarbon Dioxide Pxlwp6336-85-23 06:27:00* Test Item Value Reference Range Interpretation Comments Carbon Dioxide Level (test code = 2028-9) 25 22-29 [facility] TylerAnion Gnw7759-60-01 06:27:00* Test Item Value Reference Range Interpretation Comments Anion Gap (test code = 35825-4) 22.2 8-16 H [facility] TylerBlood Urea Obfryqvy7348-40-53 06:27:00* Test Item Value Reference Range Interpretation Comments Blood Urea Nitrogen (test code = 3094-0) 20 7-26 [facility] TylerCreatinine2020-03-16 06:27:00* Test Item Value Reference Range Interpretation Comments Creatinine (test code = 2160-0) 4.08 0.57-1.11 H [facility] TylerBUN/Creatinine Xpnxi0910-42-81 06:27:00* Test Item Value Reference Range Interpretation Comments BUN/Creatinine Ratio (test code = 3097-3) 5 6-25 L [facility] TylerEstimat Glomerular Filtration Rate 2019-04-26 06:27:00* Test Item Value Reference Range Interpretation Comments Estimat Glomerular Filtration Rate (test code = 672788817) 11 >60 L Ranges were taken from the National Kidney Disease Education Program and the [facility] Foundation literature.Reference ranges:60 or greater: Loebzp27-93 ( for 3 consecutive months): Chronic kidney disease 15 or less: Kidney failureCHRISTUS Mother Frances Hospital – TylerGlucose Qizkn6744-49-72 06:27:00* Test Item Value Reference Range Interpretation Comments Glucose Level (test code = XIZ0942) 135 74-118 H [facility] TylerCalcium Ygpzg2295-11-70 06:27:00* Test Item Value Reference Range Interpretation Comments Calcium Level (test code = 94851-5) 9.3 8.4-10.2 [facility] Zfesh1044-97-43 06:27:00* Test Item Value Reference Range Interpretation Comments Sodium Level (test code = 2951-2) 140 136-145 [facility] TylerPotassium Vnkow7724-02-05 06:27:00* Test Item Value Reference Range Interpretation Comments Potassium Level (test code = 2823-3) 4.2 3.5-5.1 [facility] TylerChloride Pgggf4146-48-40 06:27:00* Test Item Value Reference Range Interpretation Comments Chloride Level (test code = 2075-0) 97 98-107 L [facility] TylerCarbon Dioxide Tiwym5742-45-50 06:27:00* Test Item Value Reference Range Interpretation Comments Carbon Dioxide Level (test code = 2028-9) 25 22-29 [facility] TylerAnion Luz6062-19-80 06:27:00* Test Item Value Reference Range Interpretation Comments Anion Gap (test code = 08103-3) 22.2 8-16 H [facility] TylerBlood Urea Viwvusof2226-44-54 06:27:00* Test Item Value Reference Range Interpretation Comments Blood Urea Nitrogen (test code = 3094-0) 20 7-26 [facility] TylerCreatinine2020-03-16 06:27:00* Test Item Value Reference Range Interpretation Comments Creatinine (test code = 2160-0) 4.08 0.57-1.11 H [facility] TylerBUN/Creatinine Mnxfs9372-53-19 06:27:00* Test Item Value Reference Range Interpretation Comments BUN/Creatinine Ratio (test code = 3097-3) 5 6-25 L [facility] TylerEstimat Glomerular Filtration Rate 2019-04-26 06:27:00* Test Item Value Reference Range Interpretation Comments Estimat Glomerular Filtration Rate (test code = 645748484) 11 >60 L Ranges were taken from the National Kidney Disease Education Program and the Replaced by [facility] Foundation literature.Reference ranges:60 or greater: Bramqj31-42 ( for 3 consecutive months): Chronic kidney disease 15 or less: Kidney failureCHRISTUS [facility] – TylerGlucose Yymss3795-61-43 06:27:00* Test Item Value Reference Range Interpretation Comments Glucose Level (test code = ADE9835) 135 74-118 H [facility] TylerCalcium Cmszq6125-45-97 06:27:00* Test Item Value Reference Range Interpretation Comments Calcium Level (test code = 54567-8) 9.3 8.4-10.2 [facility] TylerWhite Blood Crgey9428-34-31 06:03:00* Test Item Value Reference Range Interpretation Comments White Blood Count (test code = 6690-2) 6.77 4.8-10.8 [facility] TylerRed Blood Rsvjz7552-89-41 06:03:00* Test Item Value Reference Range Interpretation Comments Red Blood Count (test code = 789-8) 2.73 3.6-5.1 L [facility] TylerHemoglobin2020-03-16 06:03:00* Test Item Value Reference Range Interpretation Comments Hemoglobin (test code = 38211-9) 8.6 12.0-16.0 L [facility] TylerHematocrit2020-03-16 06:03:00* Test Item Value Reference Range Interpretation Comments Hematocrit (test code = 4544-3) 28.5 34.2-44.1 L [facility] TylerMean Corpuscular Zlufbh8526-16-85 06:03:00* Test Item Value Reference Range Interpretation Comments Mean Corpuscular Volume (test code = 787-2) 104.4 81-99 H [facility] TylerMean Corpuscular Czfxhvrllu4799-54-34 06:03:00* Test Item Value Reference Range Interpretation Comments Mean Corpuscular Hemoglobin (test code = 785-6) 31.5 28-32 [facility] TylerMean Corpuscular Hemoglobin Concent 2019-04-26 06:03:00* Test Item Value Reference Range Interpretation Comments Mean Corpuscular Hemoglobin Concent (test code = 786-4) 30.2 31-35 L [facility] TylerRed Cell Distribution Lgpuw6809-85-40 06:03:00* Test Item Value Reference Range Interpretation Comments Red Cell Distribution Width (test code = 98304-7) 15.9 11.7 -14.4 H [facility] TylerPlatelet Ewcbn6257-01-80 06:03:00* Test Item Value Reference Range Interpretation Comments Platelet Count (test code = 777-3) 374 140-360 H [facility] TylerNeutrophils (%) (Auto)2019-04-26 06:03:00 * Test Item Value Reference Range Interpretation Comments Neutrophils (%) (Auto) (test code = 44871-5) 72.0 38.7-80.0 [facility] TylerLymphocytes (%) (Auto)2019-04-26 06:03:00 * Test Item Value Reference Range Interpretation Comments Lymphocytes (%) (Auto) (test code = 736-9) 13.0 18.0-39.1 L [facility] TylerMonocytes (%) (Auto)2019-04-26 06:03:00* Test Item Value Reference Range Interpretation Comments Monocytes (%) (Auto) (test code = 5905-5) 13.7 4.4-11.3 H [facility] TylerEosinophils (%) (Auto)2019-04-26 06:03:00 * Test Item Value Reference Range Interpretation Comments Eosinophils (%) (Auto) (test code = 713-8) 0.3 0.0-6.0 [facility] TylerBasophils (%) (Auto)2019-04-26 06:03:00* Test Item Value Reference Range Interpretation Comments Basophils (%) (Auto) (test code = 706-2) 0.4 0.0-1.0 [facility] TylerIM GRANULOCYTES %2019-04-26 06:03:00* Test Item Value Reference Range Interpretation Comments IM GRANULOCYTES % (test code = IM GRANULOCYTES %) 0.6 0.0- 1.0 [facility] TylerNeutrophils # (Auto)2019-04-26 06:03:00* Test Item Value Reference Range Interpretation Comments Neutrophils # (Auto) (test code = 751-8) 4.9 2.1-6.9 [facility] TylerLymphocytes # (Auto)2019-04-26 06:03:00* Test Item Value Reference Range Interpretation Comments Lymphocytes # (Auto) (test code = 17767-2) 0.9 1.0-3.2 L [facility] TylerMonocytes # (Auto)2019-04-26 06:03:00* Test Item Value Reference Range Interpretation Comments Monocytes # (Auto) (test code = 742-7) 0.9 0.2-0.8 H [facility] TylerEosinophils # (Auto)2019-04-26 06:03:00* Test Item Value Reference Range Interpretation Comments Eosinophils # (Auto) (test code = 711-2) 0.0 0.0-0.4 [facility] TylerBasophils # (Auto)2019-04-26 06:03:00* Test Item Value Reference Range Interpretation Comments Basophils # (Auto) (test code = 704-7) 0.0 0.0-0.1 [facility] TylerAbsolute Immature Granulocyte (auto 2019-04-26 06:03:00* Test Item Value Reference Range Interpretation Comments Absolute Immature Granulocyte (auto (carine t code = Absolute Immature Granulocyte (auto) 0.04 0-0.1 [facility] TylerWhite Blood Ixqon9477-03-31 06:03:00* Test Item Value Reference Range Interpretation Comments White Blood Count (test code = 6690-2) 6.77 4.8-10.8 [facility] TylerRed Blood Yvkpd5543-66-98 06:03:00* Test Item Value Reference Range Interpretation Comments Red Blood Count (test code = 789-8) 2.73 3.6-5.1 L [facility] TylerHemoglobin2020-03-16 06:03:00* Test Item Value Reference Range Interpretation Comments Hemoglobin (test code = 99990-9) 8.6 12.0-16.0 L [facility] TylerHematocrit2020-03-16 06:03:00* Test Item Value Reference Range Interpretation Comments Hematocrit (test code = 4544-3) 28.5 34.2-44.1 L [facility] TylerMean Corpuscular Vvlnyj1658-81-81 06:03:00* Test Item Value Reference Range Interpretation Comments Mean Corpuscular Volume (test code = 787-2) 104.4 81-99 H [facility] TylerMean Corpuscular Jvspldaahn9994-04-26 06:03:00* Test Item Value Reference Range Interpretation Comments Mean Corpuscular Hemoglobin (test code = 785-6) 31.5 28-32 [facility] TylerMean Corpuscular Hemoglobin Concent 2019-04-26 06:03:00* Test Item Value Reference Range Interpretation Comments Mean Corpuscular Hemoglobin Concent (test code = 786-4) 30.2 31-35 L [facility] TylerRed Cell Distribution Vwurv7328-57-22 06:03:00* Test Item Value Reference Range Interpretation Comments Red Cell Distribution Width (test code = 55263-4) 15.9 11.7 -14.4 H [facility] TylerPlatelet Walom9946-03-33 06:03:00* Test Item Value Reference Range Interpretation Comments Platelet Count (test code = 777-3) 374 140-360 H [facility] TylerNeutrophils (%) (Auto)2019-04-26 06:03:00 * Test Item Value Reference Range Interpretation Comments Neutrophils (%) (Auto) (test code = 50452-4) 72.0 38.7-80.0 [facility] TylerLymphocytes (%) (Auto)2019-04-26 06:03:00 * Test Item Value Reference Range Interpretation Comments Lymphocytes (%) (Auto) (test code = 736-9) 13.0 18.0-39.1 L [facility] TylerMonocytes (%) (Auto)2019-04-26 06:03:00* Test Item Value Reference Range Interpretation Comments Monocytes (%) (Auto) (test code = 5905-5) 13.7 4.4-11.3 H [facility] TylerEosinophils (%) (Auto)2019-04-26 06:03:00 * Test Item Value Reference Range Interpretation Comments Eosinophils (%) (Auto) (test code = 713-8) 0.3 0.0-6.0 [facility] TylerBasophils (%) (Auto)2019-04-26 06:03:00* Test Item Value Reference Range Interpretation Comments Basophils (%) (Auto) (test code = 706-2) 0.4 0.0-1.0 [facility] TylerIM GRANULOCYTES %2019-04-26 06:03:00* Test Item Value Reference Range Interpretation Comments IM GRANULOCYTES % (test code = IM GRANULOCYTES %) 0.6 0.0- 1.0 [facility] TylerNeutrophils # (Auto)2019-04-26 06:03:00* Test Item Value Reference Range Interpretation Comments Neutrophils # (Auto) (test code = 751-8) 4.9 2.1-6.9 [facility] TylerLymphocytes # (Auto)2019-04-26 06:03:00* Test Item Value Reference Range Interpretation Comments Lymphocytes # (Auto) (test code = 18357-7) 0.9 1.0-3.2 L [facility] TylerMonocytes # (Auto)2019-04-26 06:03:00* Test Item Value Reference Range Interpretation Comments Monocytes # (Auto) (test code = 742-7) 0.9 0.2-0.8 H [facility] TylerEosinophils # (Auto)2019-04-26 06:03:00* Test Item Value Reference Range Interpretation Comments Eosinophils # (Auto) (test code = 711-2) 0.0 0.0-0.4 [facility] TylerBasophils # (Auto)2019-04-26 06:03:00* Test Item Value Reference Range Interpretation Comments Basophils # (Auto) (test code = 704-7) 0.0 0.0-0.1 [facility] TylerAbsolute Immature Granulocyte (auto 2019-04-26 06:03:00* Test Item Value Reference Range Interpretation Comments Absolute Immature Granulocyte (auto (carine t code = Absolute Immature Granulocyte (auto) 0.04 0-0.1 [facility] TylerLactic Acid Ebyzt3173-67-33 16:12:00* Test Item Value Reference Range Interpretation Comments Lactic Acid Level (test code = Lactic Acid Level) 0.7 0.5- 2.0 [facility] TylerLactic Acid Cxamu4552-08-58 16:12:00* Test Item Value Reference Range Interpretation Comments Lactic Acid Level (test code = Lactic Acid Level) 0.7 0.5- 2.0 [facility] TylerCHEST SINGLE (PORTABLE)2019-04-25 11:17:00 [place] [address] Patient Name: YARITZA JSOEPH MR #: [id number] : 1960 Age/Sex: 58/F Req #: [id number] Adm Physician: BRENDAN TSANG MD Ordered by: BRENDAN TSANG MD Report #: [id number] Location: MED/SURG Room/Bed: [facility] Procedure: [id number] DX/CHEST SINGLE (PORTABLE) Exam Date: 04/25/19 Exam [...] COPY TO: BRENDAN TSANG MD CT BRAIN AY6087-97-93 14:22:00 [place] [address] Patient Name: YARITZA JOSEPH MR #: [id number] : 1960 Age/Sex: 58/F Req #: [id number] Adm Physician: BRENDAN TSANG MD Ordered by: BRENDAN TSANG MD Report #: [id number] Location: MED/SURG Room/Bed: [facility] Procedure: [id number] CT/CT BRAIN WO Exam Date: 04/24/19 Exam [...] 2:33 PM Dictated By: NAN THOMPSON MD 1433 Tra nscribed By: FRANCISCO J on 04/24/19 1433 COPY TO: BRENDAN TSANG MD Phosphorus Rvvyj8120-66-08 06:31:00* Test Item Value Reference Range Interpretation Comments Phosphorus Level (test code = CHI8786) 6.1 2.3-4.7 H [facility] TylerPhosphorus Gdhft7732-55-83 06:31:00* Test Item Value Reference Range Interpretation Comments Phosphorus Level (test code = VAA3969) 6.1 2.3-4.7 H [facility] Iyggxkspz5693-35-69 12:30:00* Test Item Value Reference Range Interpretation Comments Total Bilirubin (test code = 1974-) 0.6 0.2-1.2 [facility] Ouvuulqwn3666-55-87 12:30:00* Test Item Value Reference Range Interpretation Comments Total Bilirubin (test code = 1974-03) 0.6 0.2-1.2 [facility] TylerCHES SINGLE (PORTABLE)2019-04-22 12:23:00 [place] [address] Patient Name: YARITZA JOSEPH MR #: [id number] : 1960 Age/Sex: 58/F Req #: [id number] Adm Physician: BRENDAN TSANG MD Ordered by: SRIRAM HIDALGO DO Report #: [id number] Location: MED/SURG2 Room/Bed: [facility] Procedure: [id number] D X/CHEST SINGLE (PORTABLE) Exam Date: 04/22/19 [...] 12:25 PM Dictated By: VARGHESE MAHAJAN MD 24 Transcribed By: FRANCISCO J on 04/22/19 1225 COPY TO: SRIRAM HIDALGO DO Activated Partial Thromboplast Fxbp8800-29-38 11:55:00* Test Item Value Reference Range Interpretation Comments Activated Partial Thromboplast Time (test code = 40358-2) 26.9 23.8-35.5 [facility] TylerActivated Partial Thromboplast Time 2019-04-22 11:55:00* Test Item Value Reference Range Interpretation Comments Activated Partial Thromboplast Time (test code = 91864-0) 26.9 23.8-35.5 [facility] TylerActivated Partial Thromboplast Time 2019-04-22 11:55:00* Test Item Value Reference Range Interpretation Comments Activated Partial Thromboplast Time (test code = 22166-9) 26.9 23.8-35.5 [facility] TylerProthrombin Ceab6184-36-63 11:40:00* Test Item Value Reference Range Interpretation Comments Prothrombin Time (test code = 5902-2) 13.4 11.9-14.5 [facility] TylerProthromb Time International Ratio 2019-04-22 11:40:00* Test Item Value Reference Range Interpretation Comments Prothromb Time International Ratio (test code = 6301-6) 0.96 Oral Anticoagulant Therapy INR Values:1. Low Intensity Therapy 1.5 - 2.02 . Moderate Intensity Therapy 2.0 - 3.03. High Intensity Therapy(1) 2.5 - 3. 54. High Intensity Therapy(2) 3.0 - 4.05. Panic Value INR > 5.0 [facility] TylerProthrombin Jsuq6647-70-98 11:40:00* Test Item Value Reference Range Interpretation Comments Prothrombin Time (test code = 5902-2) 13.4 11.9-14.5 [facility] TylerProthromb Time International Ratio 2019-04-22 11:40:00* Test Item Value Reference Range Interpretation Comments Prothromb Time International Ratio (test code = 6301-6) 0.96 Oral Anticoagulant Therapy INR Values:1. Low Intensity Therapy 1.5 - 2.02 . Moderate Intensity Therapy 2.0 - 3.03. High Intensity Therapy(1) 2.5 - 3. 54. High Intensity Therapy(2) 3.0 - 4.05. Panic Value INR > 5.0 [facility] TylerAspartate Amino Transf (AST/SGOT) 2019-04-22 11:39:00* Test Item Value Reference Range Interpretation Comments Aspartate Amino Transf (AST/SGOT) (test code = Aspartate Amino Transf (AST/SGOT)) 16 5-34 [facility] TylerAlanine Aminotransferase (ALT/SGPT) 2019-04-22 11:39:00* Test Item Value Reference Range Interpretation Comments Alanine Aminotransferase (ALT/SGPT) (test code = 1742-6) 11 0-55 [facility] TylerTotal Nwwwkjk3047-92-75 11:39:00* Test Item Value Reference Range Interpretation Comments Total Protein (test code = 2885-2) 6.4 6.5-8.1 L [facility] TylerAlbumin2020-03-12 11:39:00* Test Item Value Reference Range Interpretation Comments Albumin (test code = 1751-7) 3.2 3.5-5.0 L [facility] TylerGlobulin2020-03-12 11:39:00* Test Item Value Reference Range Interpretation Comments Globulin (test code = 53556-8) 3.2 2.3-3.5 [facility] TylerAlbumin/Globulin Fygmk0782-88-11 11:39:00 * Test Item Value Reference Range Interpretation Comments Albumin/Globulin Ratio (test code = 1759-0) 1.0 0.8-2.0 [facility] TylerAlkaline Qsloemetzlm6329-96-67 11:39:00* Test Item Value Reference Range Interpretation Comments Alkaline Phosphatase (test code = 6768-6) 89 40-150 [facility] TylerAspartate Amino Transf (AST/SGOT) 2019-04-22 11:39:00* Test Item Value Reference Range Interpretation Comments Aspartate Amino Transf (AST/SGOT) (test code = Aspartate Amino Transf (AST/SGOT)) 16 5-34 [facility] TylerAlanine Aminotransferase (ALT/SGPT) 2019-04-22 11:39:00* Test Item Value Reference Range Interpretation Comments Alanine Aminotransferase (ALT/SGPT) (test code = 1742-6) 11 0-55 [facility] TylerTotal Qwggftq6495-91-64 11:39:00* Test Item Value Reference Range Interpretation Comments Total Protein (test code = 2885-2) 6.4 6.5-8.1 L [facility] TylerAlbumin2020-03-12 11:39:00* Test Item Value Reference Range Interpretation Comments Albumin (test code = 1751-7) 3.2 3.5-5.0 L [facility] TylerGlobulin2020-03-12 11:39:00* Test Item Value Reference Range Interpretation Comments Globulin (test code = 47054-1) 3.2 2.3-3.5 [facility] TylerAlbumin/Globulin Cehys5892-21-31 11:39:00 * Test Item Value Reference Range Interpretation Comments Albumin/Globulin Ratio (test code = 1759-0) 1.0 0.8-2.0 [facility] TylerAlkaline Foclyeafajj3117-97-85 11:39:00* Test Item Value Reference Range Interpretation Comments Alkaline Phosphatase (test code = 6768-6) 89 40-150 [facility] TylerCT HIP LEFT GM0402-45-91 10:41:00 [facility] [address] [place] [address] Patient Name: YARITZA JOSEPH MR #: [id number] : 1960 Age/Sex: 58/F Req #: [id number] Adm Physician: Ordered by: SRIRAM HIDALGO DO Report #: [id number] Location: ER Room/Bed: Procedure: [id number] CT/ CT HIP LEFT WO Exam Date: [...] FRANCISCO J on 04/22/19 1044 COPY TO: SRIRAM HIDALGO DO HIP LEFT 2-3 VW (+/- PELVIS)2019-04-22 09:26:00 [place] [address] Patient Name: YARITZA JOSEPH MR #: [id number] : 1960 Age/Sex: 58/F Req #: [id number] Adm Physician: Ordered by: SRIRAM HIDALGO DO Report #: [id number] Location: ER Room/Bed: Procedure: [id number] DX/ HIP LEFT 2-3 VW (+/- PELVIS) [...] 0 Transcribed By: FRANCISCO J on 04/22/19930 OSS ARCHITECT Y TO: SRIRAM HIDALGO DO Creatine Kinase GV4595-75-82 22:18:00* Test Item Value Reference Range Interpretation Comments Creatine Kinase MB (test code = 44471-3) 0.70 0-5.0 [facility] Y4427-82-20 22:18:00* Test Item Value Reference Range Interpretation Comments Troponin I (test code = NMM1350) 0.029 0-0.300 [facility] TylerCreatine Kinase DC3227-80-45 22:18:00* Test Item Value Reference Range Interpretation Comments Creatine Kinase MB (test code = 50775-0) 0.70 0-5.0 [facility] O6927-43-62 22:18:00* Test Item Value Reference Range Interpretation Comments Troponin I (test code = BCC3228) 0.029 0-0.300 [facility] TylerCreatine Kinase EJ3607-41-95 22:18:00* Test Item Value Reference Range Interpretation Comments Creatine Kinase MB (test code = 48288-4) 0.70 0-5.0 [facility] TylerTroponin N0522-03-54 22:18:00* Test Item Value Reference Range Interpretation Comments Troponin I (test code = XCI7057) 0.029 0-0.300 [facility] TylerB-Type Natriuretic Wprskst9300-13-94 21:59:00* Test Item Value Reference Range Interpretation Comments B-Type Natriuretic Peptide (test code = 03830-1) 1651.3 0-100 H [facility] TylerB-Type Natriuretic Oepkwmn1504-72-98 21:59:00* Test Item Value Reference Range Interpretation Comments B-Type Natriuretic Peptide (test code = 03060-7) 1651.3 0-100 H [facility] TylerB-Type Natriuretic Bvgidjh7162-18-85 21:59:00* Test Item Value Reference Range Interpretation Comments B-Type Natriuretic Peptide (test code = 76447-2) 1651.3 0-100 [facility] Cvvsu2596-34-26 21:57:00* Test Item Value Reference Range Interpretation Comments Sodium Level (test code = 2951-2) 141 136-145 [facility] TylerPotassium Wpwjl6909-74-41 21:57:00* Test Item Value Reference Range Interpretation Comments Potassium Level (test code = 2823-3) 3.0 3.5-5.1 L [facility] TylerChloride Bkdaz6421-26-27 21:57:00* Test Item Value Reference Range Interpretation Comments Chloride Level (test code = 2075-0) 98 98-107 [facility] TylerCarbon Dioxide Ejeey6372-65-02 21:57:00* Test Item Value Reference Range Interpretation Comments Carbon Dioxide Level (test code = 2028-9) 31 22-29 H [facility] TylerAnion Ucl9228-62-78 21:57:00* Test Item Value Reference Range Interpretation Comments Anion Gap (test code = 46038-0) 15.0 8-16 [facility] TylerBlood Urea Gfdnayoi8900-71-08 21:57:00* Test Item Value Reference Range Interpretation Comments Blood Urea Nitrogen (test code = 3094-0) 14 7-26 [facility] TylerCreatinine2020-02-24 21:57:00* Test Item Value Reference Range Interpretation Comments Creatinine (test code = 2160-0) 2.64 0.57-1.11 H [facility] TylerBUN/Creatinine Ddlxx2337-72-02 21:57:00* Test Item Value Reference Range Interpretation Comments BUN/Creatinine Ratio (test code = 3097-3) 5 6-25 L [facility] TylerEstimat Glomerular Filtration Rate 2019-04-05 21:57:00* Test Item Value Reference Range Interpretation Comments Estimat Glomerular Filtration Rate (test code = 466065276) 19 >60 L Ranges were taken from the National Kidney Disease Education Program and the [facility] literature.Reference ranges:60 or greater: Qjqstm88-47 ( for 3 consecutive months): Chronic kidney disease 15 or less: Kidney failureCHRISTUS [facility] – TylerGlucose Hunzv5817-03-51 21:57:00* Test Item Value Reference Range Interpretation Comments Glucose Level (test code = ODX0376) 76 74-118 [facility] TylerCalcium Iihkl2531-01-71 21:57:00* Test Item Value Reference Range Interpretation Comments Calcium Level (test code = 02742-6) 9.3 8.4-10.2 [facility] TylerTotal Vepzgahms4047-60-22 21:57:00* Test Item Value Reference Range Interpretation Comments Total Bilirubin (test code = 1975-2) 0.8 0.2-1.2 [facility] TylerAspartate Amino Transf (AST/SGOT) 2019-04-05 21:57:00* Test Item Value Reference Range Interpretation Comments Aspartate Amino Transf (AST/SGOT) (test code = Aspartate Amino Transf (AST/SGOT)) 8 5-34 [facility] TylerAlanine Aminotransferase (ALT/SGPT) 2019-04-05 21:57:00* Test Item Value Reference Range Interpretation Comments Alanine Aminotransferase (ALT/SGPT) (test code = 1742-6) 7 0-55 [facility] TylerTotal Rtewoaq0959-64-61 21:57:00* Test Item Value Reference Range Interpretation Comments Total Protein (test code = 2885-2) 6.7 6.5-8.1 [facility] TylerAlbumin2020-02-24 21:57:00* Test Item Value Reference Range Interpretation Comments Albumin (test code = 1751-7) 3.4 3.5-5.0 L [facility] TylerGlobulin2020-02-24 21:57:00* Test Item Value Reference Range Interpretation Comments Globulin (test code = 28313-9) 3.3 2.3-3.5 [facility] TylerAlbumin/Globulin Xpvds9043-36-02 21:57:00 * Test Item Value Reference Range Interpretation Comments Albumin/Globulin Ratio (test code = 1759-0) 1.0 0.8-2.0 [facility] TylerAlkaline Kydrzstlpbv5876-76-13 21:57:00* Test Item Value Reference Range Interpretation Comments Alkaline Phosphatase (test code = 6768-6) 103 40-150 [facility] TylerCreatine Ktqacl6989-91-16 21:57:00* Test Item Value Reference Range Interpretation Comments Creatine Kinase (test code = 2157-6) 20 29-168 L [facility] TylerCreatine Qtxkna5029-15-00 21:57:00* Test Item Value Reference Range Interpretation Comments Creatine Kinase (test code = 2157-6) 20 29-168 L [facility] TylerCreatine Sblxlk9001-18-34 21:57:00* Test Item Value Reference Range Interpretation Comments Creatine Kinase (test code = 2157-6) 20 29-168 L [facility] TylerProthrombin Jhtj2865-58-27 21:51:00* Test Item Value Reference Range Interpretation Comments Prothrombin Time (test code = 5902-2) 14.2 11.9-14.5 [facility] TylerProthromb Time International Ratio 2019-04-05 21:51:00* Test Item Value Reference Range Interpretation Comments Prothromb Time International Ratio (test code = 6301-6) 1.04 Oral Anticoagulant Therapy INR Values:1. Low Intensity Therapy 1.5 - 2.02 . Moderate Intensity Therapy 2.0 - 3.03. High Intensity Therapy(1) 2.5 - 3. 54. High Intensity Therapy(2) 3.0 - 4.05. Panic Value INR > 5.0 [facility] TylerActivated Partial Thromboplast Time 2019-04-05 21:51:00* Test Item Value Reference Range Interpretation Comments Activated Partial Thromboplast Time (test code = 75447-3) 31.9 23.8-35.5 [facility] TylerWhite Blood Nuafb2191-77-47 21:38:00* Test Item Value Reference Range Interpretation Comments White Blood Count (test code = 6690-2) 6.28 4.8-10.8 [facility] TylerRed Blood Lkuyl6959-43-53 21:38:00* Test Item Value Reference Range Interpretation Comments Red Blood Count (test code = 789-8) 3.45 3.6-5.1 L [facility] TylerHemoglobin2020-02-24 21:38:00* Test Item Value Reference Range Interpretation Comments Hemoglobin (test code = 84180-5) 11.0 12.0-16.0 L [facility] TylerHematocrit2020-02-24 21:38:00* Test Item Value Reference Range Interpretation Comments Hematocrit (test code = 4544-3) 33.8 34.2-44.1 L [facility] TylerMean Corpuscular Sslpck1671-61-89 21:38:00* Test Item Value Reference Range Interpretation Comments Mean Corpuscular Volume (test code = 787-2) 98.0 81-99 [facility] TylerMean Corpuscular Dvtmgeviuh0570-82-82 21:38:00* Test Item Value Reference Range Interpretation Comments Mean Corpuscular Hemoglobin (test code = 785-6) 31.9 28-32 [facility] Hemoglobin Concent 2019-04-05 21:38:00* Test Item Value Reference Range Interpretation Comments Mean Corpuscular Hemoglobin Concent (test code = 786-4) 32.5 31-35 [facility] TylerRed Cell Distribution Cfisu3066-89-02 21:38:00* Test Item Value Reference Range Interpretation Comments Red Cell Distribution Width (test code = 49985-8) 15.6 11.7 -14.4 H [facility] TylerPlatelet Nmphh3182-83-27 21:38:00* Test Item Value Reference Range Interpretation Comments Platelet Count (test code = 777-3) 347 140-360 [facility] TylerNeutrophils (%) (Auto)2019-04-05 21:38:00 * Test Item Value Reference Range Interpretation Comments Neutrophils (%) (Auto) (test code = 79179-8) 74.4 38.7-80.0 [facility] TylerLymphocytes (%) (Auto)2019-04-05 21:38:00 * Test Item Value Reference Range Interpretation Comments Lymphocytes (%) (Auto) (test code = 736-9) 12.1 18.0-39.1 L [facility] TylerMonocytes (%) (Auto)2019-04-05 21:38:00* Test Item Value Reference Range Interpretation Comments Monocytes (%) (Auto) (test code = 5905-5) 11.6 4.4-11.3 H [facility] TylerEosinophils (%) (Auto)2019-04-05 21:38:00 * Test Item Value Reference Range Interpretation Comments Eosinophils (%) (Auto) (test code = 713-8) 1.3 0.0-6.0 [facility] TylerBasophils (%) (Auto)2019-04-05 21:38:00* Test Item Value Reference Range Interpretation Comments Basophils (%) (Auto) (test code = 706-2) 0.3 0.0-1.0 [facility] TylerIM GRANULOCYTES %2019-04-05 21:38:00* Test Item Value Reference Range Interpretation Comments IM GRANULOCYTES % (test code = IM GRANULOCYTES %) 0.3 0.0- 1.0 [facility] TylerNeutrophils # (Auto)2019-04-05 21:38:00* Test Item Value Reference Range Interpretation Comments Neutrophils # (Auto) (test code = 751-8) 4.7 2.1-6.9 [facility] TylerLymphocytes # (Auto)2019-04-05 21:38:00* Test Item Value Reference Range Interpretation Comments Lymphocytes # (Auto) (test code = 83046-6) 0.8 1.0-3.2 L [facility] TylerMonocytes # (Auto)2019-04-05 21:38:00* Test Item Value Reference Range Interpretation Comments Monocytes # (Auto) (test code = 742-7) 0.7 0.2-0.8 [facility] TylerEosinophils # (Auto)2019-04-05 21:38:00* Test Item Value Reference Range Interpretation Comments Eosinophils # (Auto) (test code = 711-2) 0.1 0.0-0.4 [facility] TylerBasophils # (Auto)2019-04-05 21:38:00* Test Item Value Reference Range Interpretation Comments Basophils # (Auto) (test code = 704-7) 0.0 0.0-0.1 [facility] TylerAbsolute Immature Granulocyte (auto 2019-04-05 21:38:00* Test Item Value Reference Range Interpretation Comments Absolute Immature Granulocyte (auto (carine t code = Absolute Immature Granulocyte (auto) 0.02 0-0.1 [facility] TylerCHEST SINGLE (NOT PORTABLE)2019-04-05 19:12:00 [place] [address] Patient Name: YARITZA JOSEPH MR #: [id number] : 1960 Age/Sex: 58/F Req #: [id number] Adm Physician: Ordered by: KARSTEN HU NP Report #: [id number] Location: ER Room/Bed: Procedure: [id number] DX/CHEST SINGLE (NOT PORTABLE) Exam Date: Exam [...] LIRA MD 13 COPY TO: EWA HU TOOL PROGRAMMER Creatine Kinase [id number] 12:03:00* Test Item Value Reference Range Interpretation Comments Creatine Kinase MB (test code = 99738-4) 0.70 0-5.0 [facility] TylerTroponin Z2589-19-77 12:03:00* Test Item Value Reference Range Interpretation Comments Troponin I (test code = KQY5440) 0.009 0-0.300 [facility] Mppqd9418-26-90 11:54:00* Test Item Value Reference Range Interpretation Comments Sodium Level (test code = 2951-2) 137 136-145 [facility] TylerPotassium Dkend1613-56-50 11:54:00* Test Item Value Reference Range Interpretation Comments Potassium Level (test code = 2823-3) 4.1 3.5-5.1 [facility] TylerChloride Tuqbf5767-93-10 11:54:00* Test Item Value Reference Range Interpretation Comments Chloride Level (test code = 2075-0) 101 98-107 [facility] TylerCarbon Dioxide Lpktc2554-68-22 11:54:00* Test Item Value Reference Range Interpretation Comments Carbon Dioxide Level (test code = 2028-9) 23 22-29 [facility] TylerAnion Zbc9892-10-29 11:54:00* Test Item Value Reference Range Interpretation Comments Anion Gap (test code = 36096-8) 17.1 8-16 H [facility] TylerBlood Urea Cskycdbg4505-40-81 11:54:00* Test Item Value Reference Range Interpretation Comments Blood Urea Nitrogen (test code = 3094-0) 42 7-26 H [facility] TylerCreatinine2020-01-27 11:54:00* Test Item Value Reference Range Interpretation Comments Creatinine (test code = 2160-0) 6.78 0.57-1.11 H [facility] TylerBUN/Creatinine Gdylv8666-64-67 11:54:00* Test Item Value Reference Range Interpretation Comments BUN/Creatinine Ratio (test code = 3097-3) 6 6-25 [facility] TylerEstimat Glomerular Filtration Rate 2019-03-08 11:54:00* Test Item Value Reference Range Interpretation Comments Estimat Glomerular Filtration Rate (test code = 707035426) 6 >60 L Ranges were taken from the National Kidney Disease Education Program and the [facility] literature.Reference ranges:60 or greater: Cxjqgd76-99 ( for 3 consecutive months): Chronic kidney disease 15 or less: Kidney failureCHRISTUS Mother Frances Hospital – TylerGlucose Sxddf5091-93-23 11:54:00* Test Item Value Reference Range Interpretation Comments Glucose Level (test code = CZZ1883) 278 74-118 H [facility] TylerCalcium Ieaui7178-04-80 11:54:00* Test Item Value Reference Range Interpretation Comments Calcium Level (test code = 59250-7) 9.8 8.4-10.2 [facility] TylerTotal Kmuwstzap9066-63-29 11:54:00* Test Item Value Reference Range Interpretation Comments Total Bilirubin (test code = 1975-2) 0.9 0.2-1.2 [facility] TylerAspartate Amino Transf (AST/SGOT) 2019-03-08 11:54:00* Test Item Value Reference Range Interpretation Comments Aspartate Amino Transf (AST/SGOT) (test code = Aspartate Amino Transf (AST/SGOT)) 11 5-34 [facility] TylerAlanine Aminotransferase (ALT/SGPT) 2019-03-08 11:54:00* Test Item Value Reference Range Interpretation Comments Alanine Aminotransferase (ALT/SGPT) (test code = 1742-6) 12 0-55 [facility] TylerTotal Fwiayyq5871-23-72 11:54:00* Test Item Value Reference Range Interpretation Comments Total Protein (test code = 2885-2) 6.5 6.5-8.1 [facility] TylerAlbumin2020-01-27 11:54:00* Test Item Value Reference Range Interpretation Comments Albumin (test code = 1751-7) 3.6 3.5-5.0 [facility] TylerGlobulin2020-01-27 11:54:00* Test Item Value Reference Range Interpretation Comments Globulin (test code = 13809-2) 2.9 2.3-3.5 [facility] TylerAlbumin/Globulin Sjuff2537-76-77 11:54:00 * Test Item Value Reference Range Interpretation Comments Albumin/Globulin Ratio (test code = 1759-0) 1.2 0.8-2.0 [facility] TylerAlkaline Ohjfhkcoigy1234-03-47 11:54:00* Test Item Value Reference Range Interpretation Comments Alkaline Phosphatase (test code = 6768-6) 96 40-150 [facility] TylerCreatine Nklbdi7131-64-55 11:54:00* Test Item Value Reference Range Interpretation Comments Creatine Kinase (test code = 2157-6) 22 29-168 L [facility] TylerWhite Blood Nucxt8408-61-96 11:41:00* Test Item Value Reference Range Interpretation Comments White Blood Count (test code = 6690-2) 6.43 4.8-10.8 [facility] TylerRed Blood Tqafc8764-42-52 11:41:00* Test Item Value Reference Range Interpretation Comments Red Blood Count (test code = 789-8) 3.29 3.6-5.1 L [facility] TylerHemoglobin2020-01-27 11:41:00* Test Item Value Reference Range Interpretation Comments Hemoglobin (test code = 14400-0) 11.0 12.0-16.0 L [facility] TylerHematocrit2020-01-27 11:41:00* Test Item Value Reference Range Interpretation Comments Hematocrit (test code = 4544-3) 32.8 34.2-44.1 L [facility] TylerMean Corpuscular Giastv7398-51-69 11:41:00* Test Item Value Reference Range Interpretation Comments Mean Corpuscular Volume (test code = 787-2) 99.7 81-99 H [facility] TylerMean Corpuscular Ecagzllrjq1557-50-94 11:41:00* Test Item Value Reference Range Interpretation Comments Mean Corpuscular Hemoglobin (test code = 785-6) 33.4 28-32 H [facility] TylerMean Corpuscular Hemoglobin Concent 2019-03-08 11:41:00* Test Item Value Reference Range Interpretation Comments Mean Corpuscular Hemoglobin Concent (test code = 786-4) 33.5 31-35 [facility] TylerRed Cell Distribution Cbpln8618-27-57 11:41:00* Test Item Value Reference Range Interpretation Comments Red Cell Distribution Width (test code = 75575-0) 15.1 11.7 -14.4 H [facility] TylerPlatelet Vxeio7849-74-76 11:41:00* Test Item Value Reference Range Interpretation Comments Platelet Count (test code = 777-3) 248 140-360 [facility] TylerNeutrophils (%) (Auto)2019-03-08 11:41:00 * Test Item Value Reference Range Interpretation Comments Neutrophils (%) (Auto) (test code = 11613-0) 77.2 38.7-80.0 [facility] TylerLymphocytes (%) (Auto)2019-03-08 11:41:00 * Test Item Value Reference Range Interpretation Comments Lymphocytes (%) (Auto) (test code = 736-9) 9.0 18.0-39.1 L [facility] TylerMonocytes (%) (Auto)2019-03-08 11:41:00* Test Item Value Reference Range Interpretation Comments Monocytes (%) (Auto) (test code = 5905-5) 12.0 4.4-11.3 H [facility] TylerEosinophils (%) (Auto)2019-03-08 11:41:00 * Test Item Value Reference Range Interpretation Comments Eosinophils (%) (Auto) (test code = 713-8) 1.2 0.0-6.0 [facility] TylerBasophils (%) (Auto)2019-03-08 11:41:00* Test Item Value Reference Range Interpretation Comments Basophils (%) (Auto) (test code = 706-2) 0.3 0.0-1.0 [facility] TylerIM GRANULOCYTES %2019-03-08 11:41:00* Test Item Value Reference Range Interpretation Comments IM GRANULOCYTES % (test code = IM GRANULOCYTES %) 0.3 0.0- 1.0 [facility] TylerNeutrophils # (Auto)2019-03-08 11:41:00* Test Item Value Reference Range Interpretation Comments Neutrophils # (Auto) (test code = 751-8) 5.0 2.1-6.9 [facility] TylerLymphocytes # (Auto)2019-03-08 11:41:00* Test Item Value Reference Range Interpretation Comments Lymphocytes # (Auto) (test code = 63292-3) 0.6 1.0-3.2 L [facility] TylerMonocytes # (Auto)2019-03-08 11:41:00* Test Item Value Reference Range Interpretation Comments Monocytes # (Auto) (test code = 742-7) 0.8 0.2-0.8 [facility] TylerEosinophils # (Auto)2019-03-08 11:41:00* Test Item Value Reference Range Interpretation Comments Eosinophils # (Auto) (test code = 711-2) 0.1 0.0-0.4 [facility] TylerBasophils # (Auto)2019-03-08 11:41:00* Test Item Value Reference Range Interpretation Comments Basophils # (Auto) (test code = 704-7) 0.0 0.0-0.1 [facility] TylerAbsolute Immature Granulocyte (auto 2019-03-08 11:41:00* Test Item Value Reference Range Interpretation Comments Absolute Immature Granulocyte (auto (carine t code = Absolute Immature Granulocyte (auto) 0.02 0-0.1 [facility] TylerCHEST SINGLE (PORTABLE)2019-03-08 11:20:00 [facility] [address] [place] [address] Patient Name: YARITZA JOSEPH MR #: [id number] : 1960 Age/Sex: 58/F Req #: [id number] Adm Physician: Ordered by: HAL BUI DO Report #: [id number] Location: ER Room/Bed: Procedure: [id number] DX/CHEST SINGLE (PORTABLE) Exam Date: 03/08/19 Exam [...] 11:21 AM Dictated By: VARGHESE MAHAJAN MD 20 Transcribed By: FRANCISCO J on 03/08/191120 COPY TO: HAL BUI DO CHEST SINGLE (PORTABLE)2018-12-21 08:36:00 [facility] [address] [place] [address] Patient Name: YARITZA JOSEPH MR #: [id number] : 1960 Age/Sex: 58/F Req #: [id number] Adm Physician: Ordered by: HAL BUI DO Report #: [id number] Location: ER Room/Bed: Procedure: [id number] DX/CHEST SINGLE (PORTABLE) Exam Date: 12/21/18 Exam [...] COPY TO: Alessia BUI DO Creatine Kinase [id number] 07:14:00* Test Item Value Reference Range Interpretation Comments Creatine Kinase MB (test code = 90944-7) 0.90 0-5.0 [facility] D2312-29-47 07:14:00* Test Item Value Reference Range Interpretation Comments Troponin I (test code = ESU6784) < 0.001 0-0.300 [facility] Euadv3098-50-89 07:08:00* Test Item Value Reference Range Interpretation Comments Sodium Level (test code = 2951-2) 137 136-145 [facility] TylerPotassium Qbccg9605-69-21 07:08:00* Test Item Value Reference Range Interpretation Comments Potassium Level (test code = 2823-3) 5.0 3.5-5.1 [facility] TylerChloride Wtqjl5308-15-80 07:08:00* Test Item Value Reference Range Interpretation Comments Chloride Level (test code = 2075-0) 103 98-107 [facility] TylerCarbon Dioxide Rrgpk9435-83-03 07:08:00* Test Item Value Reference Range Interpretation Comments Carbon Dioxide Level (test code = 2028-9) 16 22-29 L [facility] TylerAnion Xqb9126-82-84 07:08:00* Test Item Value Reference Range Interpretation Comments Anion Gap (test code = 34446-4) 23.0 8-16 H [facility] TylerBlood Urea Odafcqtx2448-65-39 07:08:00* Test Item Value Reference Range Interpretation Comments Blood Urea Nitrogen (test code = 3094-0) 84 7-26 H [facility] TylerCreatinine2019-11-11 07:08:00* Test Item Value Reference Range Interpretation Comments Creatinine (test code = 2160-0) 8.34 0.57-1.11 H [facility] TylerBUN/Creatinine Kwsaz4727-53-15 07:08:00* Test Item Value Reference Range Interpretation Comments BUN/Creatinine Ratio (test code = 3097-3) 10 6-25 [facility] TylerEstimat Glomerular Filtration Rate 2018-12-21 07:08:00* Test Item Value Reference Range Interpretation Comments Estimat Glomerular Filtration Rate (test code = 258983964) 5 >60 L Ranges were taken from the National Kidney Disease Education Program and the Replaced by [facility]ney Foundation literature.Reference ranges:60 or greater: Kofacj63-42 ( for 3 consecutive months): Chronic kidney disease 15 or less: Kidney failureCHRISTUS Mother Frances Hospital – TylerGlucose Agyna1818-21-06 07:08:00* Test Item Value Reference Range Interpretation Comments Glucose Level (test code = ITD6319) 216 74-118 H [facility] TylerCalcium Nmpwy0700-47-00 07:08:00* Test Item Value Reference Range Interpretation Comments Calcium Level (test code = 85502-7) 9.8 8.4-10.2 [facility] TylerTotal Ivhpfgksq9969-42-67 07:08:00* Test Item Value Reference Range Interpretation Comments Total Bilirubin (test code = 1975-2) 0.7 0.2-1.2 [facility] TylerAspartate Amino Transf (AST/SGOT) 2018-12-21 07:08:00* Test Item Value Reference Range Interpretation Comments Aspartate Amino Transf (AST/SGOT) (test code = Aspartate Amino Transf (AST/SGOT)) 15 5-34 [facility] TylerAlanine Aminotransferase (ALT/SGPT) 2018-12-21 07:08:00* Test Item Value Reference Range Interpretation Comments Alanine Aminotransferase (ALT/SGPT) (test code = 1742-6) 14 0-55 [facility] TylerTotal Fsevwks3303-45-54 07:08:00* Test Item Value Reference Range Interpretation Comments Total Protein (test code = 2885-2) 6.6 6.5-8.1 [facility] TylerAlbumin2019-11-11 07:08:00* Test Item Value Reference Range Interpretation Comments Albumin (test code = 1751-7) 3.7 3.5-5.0 [facility] TylerGlobulin2019-11-11 07:08:00* Test Item Value Reference Range Interpretation Comments Globulin (test code = 52659-7) 2.9 2.3-3.5 [facility] TylerAlbumin/Globulin Ubjfw7436-20-21 07:08:00 * Test Item Value Reference Range Interpretation Comments Albumin/Globulin Ratio (test code = 1759-0) 1.3 0.8-2.0 [facility] TylerAlkaline Kxbtmzstzsn1496-95-23 07:08:00* Test Item Value Reference Range Interpretation Comments Alkaline Phosphatase (test code = 6768-6) 110 40-150 [facility] TylerB-Type Natriuretic Blxkdel2711-12-05 07:08:00* Test Item Value Reference Range Interpretation Comments B-Type Natriuretic Peptide (test code = 55818-6) 2357.9 0-100 H [facility] TylerCreatine Nqejrg3070-91-17 07:08:00* Test Item Value Reference Range Interpretation Comments Creatine Kinase (test code = 2157-6) 25 29-168 L [facility] TylerB-Type Natriuretic Itnnhkz5024-43-07 07:08:00* Test Item Value Reference Range Interpretation Comments B-Type Natriuretic Peptide (test code = 29877-2) 2357.9 0-100 H [facility] TylerWhite Blood Jrzgn1303-95-36 06:59:00* Test Item Value Reference Range Interpretation Comments White Blood Count (test code = 6690-2) 8.03 4.8-10.8 [facility] TylerRed Blood Eqtpq2230-18-48 06:59:00* Test Item Value Reference Range Interpretation Comments Red Blood Count (test code = 789-8) 3.14 3.6-5.1 L [facility] TylerHemoglobin2019-11-11 06:59:00* Test Item Value Reference Range Interpretation Comments Hemoglobin (test code = 76017-3) 10.7 12.0-16.0 L [facility] TylerHematocrit2019-11-11 06:59:00* Test Item Value Reference Range Interpretation Comments Hematocrit (test code = 4544-3) 31.4 34.2-44.1 L [facility] TylerMean Corpuscular Jhctqb3100-11-89 06:59:00* Test Item Value Reference Range Interpretation Comments Mean Corpuscular Volume (test code = 787-2) 100.0 81-99 H [facility] TylerMean Corpuscular Qwadpmvovr4692-14-68 06:59:00* Test Item Value Reference Range Interpretation Comments Mean Corpuscular Hemoglobin (test code = 785-6) 34.1 28-32 H [facility] TylerMean Corpuscular Hemoglobin Concent 2018-12-21 06:59:00* Test Item Value Reference Range Interpretation Comments Mean Corpuscular Hemoglobin Concent (test code = 786-4) 34.1 31-35 [facility] TylerRed Cell Distribution Wsuyr6472-68-77 06:59:00* Test Item Value Reference Range Interpretation Comments Red Cell Distribution Width (test code = 16758-8) 12.9 11.7 -14.4 [facility] TylerPlatelet Soncq0439-48-17 06:59:00* Test Item Value Reference Range Interpretation Comments Platelet Count (test code = 777-3) 205 140-360 [facility] TylerNeutrophils (%) (Auto)2018-12-21 06:59:00 * Test Item Value Reference Range Interpretation Comments Neutrophils (%) (Auto) (test code = 30809-2) 71.5 38.7-80.0 [facility] TylerLymphocytes (%) (Auto)2018-12-21 06:59:00 * Test Item Value Reference Range Interpretation Comments Lymphocytes (%) (Auto) (test code = 736-9) 16.1 18.0-39.1 L [facility] TylerMonocytes (%) (Auto)2018-12-21 06:59:00* Test Item Value Reference Range Interpretation Comments Monocytes (%) (Auto) (test code = 5905-5) 10.6 4.4-11.3 [facility] TylerEosinophils (%) (Auto)2018-12-21 06:59:00 * Test Item Value Reference Range Interpretation Comments Eosinophils (%) (Auto) (test code = 713-8) 0.9 0.0-6.0 [facility] TylerBasophils (%) (Auto)2018-12-21 06:59:00* Test Item Value Reference Range Interpretation Comments Basophils (%) (Auto) (test code = 706-2) 0.4 0.0-1.0 [facility] TylerIM GRANULOCYTES %2018-12-21 06:59:00* Test Item Value Reference Range Interpretation Comments IM GRANULOCYTES % (test code = IM GRANULOCYTES %) 0.5 0.0- 1.0 [facility] TylerNeutrophils # (Auto)2018-12-21 06:59:00* Test Item Value Reference Range Interpretation Comments Neutrophils # (Auto) (test code = 751-8) 5.8 2.1-6.9 [facility] TylerLymphocytes # (Auto)2018-12-21 06:59:00* Test Item Value Reference Range Interpretation Comments Lymphocytes # (Auto) (test code = 73356-1) 1.3 1.0-3.2 [facility] TylerMonocytes # (Auto)2018-12-21 06:59:00* Test Item Value Reference Range Interpretation Comments Monocytes # (Auto) (test code = 742-7) 0.9 0.2-0.8 H [facility] TylerEosinophils # (Auto)2018-12-21 06:59:00* Test Item Value Reference Range Interpretation Comments Eosinophils # (Auto) (test code = 711-2) 0.1 0.0-0.4 [facility] TylerBasophils # (Auto)2018-12-21 06:59:00* Test Item Value Reference Range Interpretation Comments Basophils # (Auto) (test code = 704-7) 0.0 0.0-0.1 [facility] TylerAbsolute Immature Granulocyte (auto 2018-12-21 06:59:00* Test Item Value Reference Range Interpretation Comments Absolute Immature Granulocyte (auto (carine t code = Absolute Immature Granulocyte (auto) 0.04 0-0.1 [facility] TylerArterial Blood nU1011-19-20 06:52:00* Test Item Value Reference Range Interpretation Comments Arterial Blood pH (test code = 2744-1) 7.37 7.31-7.41 [facility] TylerArterial Blood Partial Pressure CO2 2018-12-21 06:52:00* Test Item Value Reference Range Interpretation Comments Arterial Blood Partial Pressure CO2 (test code = 2018-8) 25 41-51 L [facility] TylerArterial Blood Partial Pressure O2 2018-12-21 06:52:00* Test Item Value Reference Range Interpretation Comments Arterial Blood Partial Pressure O2 (test code = 2018-8) 103 80-105 [facility] [id number] 06:52:00* Test Item Value Reference Range Interpretation Comments Arterial Blood HCO3 (test code = 1960-4) 15 23-28 L [facility] Base Tznvnk6153-08-57 06:52:00* Test Item Value Reference Range Interpretation Comments Arterial Blood Base Excess (test code = 1925-7) -11.0 -2-3 L [facility] Oxygen Saturation 2018-12-21 06:52:00* Test Item Value Reference Range Interpretation Comments Arterial Blood Oxygen Saturation (test code = 2708-6) 98.0 95-98 [facility] Tyler[facility]2019-[facility]-11 06:52:00* Test Item Value Reference Range Interpretation Comments FiO2 (test code = FiO2) [facility] [id number] 06:52:00* Test Item Value Reference Range Interpretation Comments Arterial Blood pH (test code = 2744-1) 7.37 7.31-7.41 [facility] Partial Pressure CO2 2018-12-21 06:52:00* Test Item Value Reference Range Interpretation Comments Arterial Blood Partial Pressure CO2 (test code = 2018-8) 25 41-51 L [facility] Partial Pressure O2 2018-12-21 06:52:00* Test Item Value Reference Range Interpretation Comments Arterial Blood Partial Pressure O2 (test code = 2018-8) 103 80-105 [facility] [id number] 06:52:00* Test Item Value Reference Range Interpretation Comments Arterial Blood HCO3 (test code = 1960-4) 15 23-28 L [facility] Base Unyerq6658-31-44 06:52:00* Test Item Value Reference Range Interpretation Comments Arterial Blood Base Excess (test code = 1925-7) -11.0 -2-3 L [facility] Oxygen Saturation 2018-12-21 06:52:00* Test Item Value Reference Range Interpretation Comments Arterial Blood Oxygen Saturation (test code = 2708-6) 98.0 95-98 [facility]2019-11-11 06:52:00* Test Item Value Reference Range Interpretation Comments FiO2 (test code = FiO2) 28 [facility] Blood [id number] 06:52:00* Test Item Value Reference Range Interpretation Comments Arterial Blood pH (test code = 2744-1) 7.37 7.31-7.41 [facility] Partial Pressure CO2 2018-12-21 06:52:00* Test Item Value Reference Range Interpretation Comments Arterial Blood Partial Pressure CO2 (test code = 2018-) 25 41-51 L [facility] Partial Pressure O2 2018-12-21 06:52:00* Test Item Value Reference Range Interpretation Comments Arterial Blood Partial Pressure O2 (test code = 2018-8) 103 80-105 [facility] [id number] 06:52:00* Test Item Value Reference Range Interpretation Comments Arterial Blood HCO3 (test code = 1960-4) 15 23-28 [facility] Gkoiwy3594-67-95 06:52:00* Test Item Value Reference Range Interpretation Comments Arterial Blood Base Excess (test code = 1925-7) -11.0 -2-3 L [facility] Oxygen Saturation 2018-12-21 06:52:00* Test Item Value Reference Range Interpretation Comments Arterial Blood Oxygen Saturation (test code = 2708-6) 98.0 95-98 [facility]2019-11-11 06:52:00* Test Item Value Reference Range Interpretation Comments FiO2 (test code = FiO2) 28 [facility] Blood [id number] 06:52:00* Test Item Value Reference Range Interpretation Comments Arterial Blood pH (test code = 2744-1) 7.37 7.31-7.41 [facility] Partial Pressure CO2 2018-12-21 06:52:00* Test Item Value Reference Range Interpretation Comments Arterial Blood Partial Pressure CO2 (test code = 2018-09) 25 41-51 L [facility] Partial Pressure O2 2018-12-21 06:52:00* Test Item Value Reference Range Interpretation Comments Arterial Blood Partial Pressure O2 (test code = 2018-09) 103 80-105 [facility] [id number] 06:52:00* Test Item Value Reference Range Interpretation Comments Arterial Blood HCO3 (test code = 1960-4) 15 23-28 [facility] Kbemod2470-82-60 06:52:00* Test Item Value Reference Range Interpretation Comments Arterial Blood Base Excess (test code = 1925-7) -11.0 -2-3 L [facility] Oxygen Saturation 2018-12-21 06:52:00* Test Item Value Reference Range Interpretation Comments Arterial Blood Oxygen Saturation (test code = 2708-6) 98.0 95-98 [facility]2019-11-11 06:52:00* Test Item Value Reference Range Interpretation Comments FiO2 (test code = FiO2) 28 [facility] Blood [id number] 06:52:00* Test Item Value Reference Range Interpretation Comments Arterial Blood pH (test code = 2744-1) 7.37 7.31-7.41 [facility] Partial Pressure CO2 2018-12-21 06:52:00* Test Item Value Reference Range Interpretation Comments Arterial Blood Partial Pressure CO2 (test code = 2018-09) 25 41-51 L [facility] Partial Pressure O2 2018-12-21 06:52:00* Test Item Value Reference Range Interpretation Comments Arterial Blood Partial Pressure O2 (test code = 2018-09) 103 80-105 [facility] [id number] 06:52:00* Test Item Value Reference Range Interpretation Comments Arterial Blood HCO3 (test code = 1960-4) 15 23-28 L [facility] Tyler[facility] Base Repoix8948-36-72 06:52:00* Test Item Value Reference Range Interpretation Comments Arterial Blood Base Excess (test code = 1925-7) -11.0 -2-3 L [facility] Oxygen Saturation 2018-12-21 06:52:00* Test Item Value Reference Range Interpretation Comments Arterial Blood Oxygen Saturation (test code = 2708-6) 98.0 95-98 [facility]2019-11-11 06:52:00* Test Item Value Reference Range Interpretation Comments FiO2 (test code = FiO2) 28 [facility] Blood [id number] 06:52:00* Test Item Value Reference Range Interpretation Comments Arterial Blood pH (test code = 2744-1) 7.37 7.31-7.41 [facility] Partial Pressure CO2 2018-12-21 06:52:00* Test Item Value Reference Range Interpretation Comments Arterial Blood Partial Pressure CO2 (test code = 2018-8) 25 41-51 L [facility] Tyler[facility] Partial Pressure O2 2018-12-21 06:52:00* Test Item Value Reference Range Interpretation Comments Arterial Blood Partial Pressure O2 (test code = 2018-8) 103 80-105 [facility] Blood [id number] 06:52:00* Test Item Value Reference Range Interpretation Comments Arterial Blood HCO3 (test code = 1960-4) 15 23-28 L [facility] Tyler[facility] Base Ujjjpn2055-84-86 06:52:00* Test Item Value Reference Range Interpretation Comments Arterial Blood Base Excess (test code = 1925-7) -11.0 -2-3 L [facility] Tyler[facility] Oxygen Saturation 2018-12-21 06:52:00* Test Item Value Reference Range Interpretation Comments Arterial Blood Oxygen Saturation (test code = 2708-6) 98.0 95-98 [facility] Tyler[facility]2019-11-11 06:52:00* Test Item Value Reference Range Interpretation Comments FiO2 (test code = FiO2) 28 [facility] Fgmcfpi0826-45-33 15:21:00* Test Item Value Reference Range Interpretation Comments Blood Culture (test code = 90049571) NO GROWTH AFTER 5 DAYS, FINAL REPORT [facility]2019-09-22 15:21:00* Test Item Value Reference Range Interpretation Comments Blood Culture (test code = 23040818) NO GROWTH AFTER 5 DAYS, FINAL REPORT [facility] Epterqd6374-16-13 15:21:00* Test Item Value Reference Range Interpretation Comments Blood Culture (test code = 76029183) NO GROWTH AFTER 5 DAYS, FINAL REPORT [facility] Mnnrnhv6862-00-29 19:29:00* Test Item Value Reference Range Interpretation Comments Bedside Glucose (test code = 58118-2) 100 70-120 Meter ID: [id number] Glucose 2018-10-30 19:29:00* Test Item Value Reference Range Interpretation Comments Bedside Glucose (test code = 99539-2) 100 70-120 Meter ID: [id number] [facility] Glucose 2018-10-30 19:29:00* Test Item Value Reference Range Interpretation Comments Bedside Glucose (test code = 64678-9) 100 70-120 Meter ID: [id number] Culture 2018-10-30 15:21:00* Test Item Value Reference Range Interpretation Comments Blood Culture (test code = 55128371) NO GROWTH AFTER 72 HOURS [facility] Vuqujoo4323-21-15 11:48:00* Test Item Value Reference Range Interpretation Comments Bedside Glucose (test code = 22401-5) 225 70-120 H Meter ID: [id number] [facility] TylerTriglycerides Level 2018-10-29 06:08:00* Test Item Value Reference Range Interpretation Comments Triglycerides Level (test code = 2571-8) 137 0-149 [facility] TylerCh[facility] Goepk4732-90-42 06:08:00* Test Item Value Reference Range Interpretation Comments Cholesterol Level (test code = 2093-3) 191 0-199 Less than 200 mg/dL Low Efci657 - 239 mg/dL Borderline Uhcr386 m g/dl and greater High Risk [facility] TylerLDL Miteghpzeyf9835-40-53 06:08:00* Test Item Value Reference Range Interpretation Comments LDL Cholesterol (test code = 2089-1) 87 60[facility] Qkpjhemgazc7302-86-30 06:08:00* Test Item Value Reference Range Interpretation Comments HDL Cholesterol (test code = 2085-9) 77 40-60 H [facility] TylerCh[facility]/HDL Gnvmr6315-68-30 06:08:00 * Test Item Value Reference Range Interpretation Comments Cholesterol/HDL Ratio (test code = 9830-1) 2.5 3.0-3.6 L [facility] TylerTriglycerides Spyjv2504-79-86 06:08:00* Test Item Value Reference Range Interpretation Comments Triglycerides Level (test code = 2571-8) 137 0-149 [facility] TylerCholesterol Yixqg9814-98-62 06:08:00* Test Item Value Reference Range Interpretation Comments Cholesterol Level (test code = 2093-3) 191 0-199 Less than 200 mg/dL Low Ncko340 - 239 mg/dL Borderline Jbtq261 m g/dl and greater High Risk [facility] TylerLDL Aqlxjfvhldm6664-29-29 06:08:00* Test Item Value Reference Range Interpretation Comments LDL Cholesterol (test code = 2089-1) 87 60-130 [facility] Aqbnqchstts4059-77-91 06:08:00* Test Item Value Reference Range Interpretation Comments HDL Cholesterol (test code = 2085-9) 77 40-60 H [facility] TylerCh[facility]/HDL Qceem2779-35-09 06:08:00 * Test Item Value Reference Range Interpretation Comments Cholesterol/HDL Ratio (test code = 9830-1) 2.5 3.0-3.6 L [facility] TylerTriglycerides Tbici6400-44-22 06:08:00* Test Item Value Reference Range Interpretation Comments Triglycerides Level (test code = 2571-8) 137 0-149 [facility] TylerCholesterol Tuvls6325-65-45 06:08:00* Test Item Value Reference Range Interpretation Comments Cholesterol Level (test code = 2093-3) 191 0-199 Less than 200 mg/dL Low Admu130 - 239 mg/dL Borderline Rgxt221 m g/dl and greater High Risk [facility] TylerLDL Qiztjfmmfva7672-71-14 06:08:00* Test Item Value Reference Range Interpretation Comments LDL Cholesterol (test code = 2089-1) 87 60-130 [facility] Qfmjrnqvthl3716-51-59 06:08:00* Test Item Value Reference Range Interpretation Comments HDL Cholesterol (test code = 2085-9) 77 40-60 H [facility] TylerCh[facility]/HDL Yrkjv3271-08-47 06:08:00 * Test Item Value Reference Range Interpretation Comments Cholesterol/HDL Ratio (test code = 9830-1) 2.5 3.0-3.6 L [facility] TylerTriglycerides Sfold0688-62-23 06:08:00* Test Item Value Reference Range Interpretation Comments Triglycerides Level (test code = 2571-8) 137 0-149 [facility] TylerCholesterol Dwvmz9109-69-54 06:08:00* Test Item Value Reference Range Interpretation Comments Cholesterol Level (test code = 2093-3) 191 0-199 Less than 200 mg/dL Low Obqd154 - 239 mg/dL Borderline Dzla214 m g/dl and greater High Risk [facility] TylerLDL Yiyodnrkctr6048-19-77 06:08:00* Test Item Value Reference Range Interpretation Comments LDL Cholesterol (test code = 2089-1) 87 60-130 [facility] Lnhnjdvyzve2837-38-11 06:08:00* Test Item Value Reference Range Interpretation Comments HDL Cholesterol (test code = 2085-9) 77 40-60 H [facility] TylerCh[facility]/HDL Tteun7409-85-73 06:08:00 * Test Item Value Reference Range Interpretation Comments Cholesterol/HDL Ratio (test code = 9830-1) 2.5 3.0-3.6 L [facility] TylerTriglycerides Onlti8361-56-61 06:08:00* Test Item Value Reference Range Interpretation Comments Triglycerides Level (test code = 2571-8) 137 0-149 [facility] TylerCholesterol Bqkvf4721-84-20 06:08:00* Test Item Value Reference Range Interpretation Comments Cholesterol Level (test code = 2093-3) 191 0-199 Less than 200 mg/dL Low Pcgc998 - 239 mg/dL Borderline Ogiz828 m g/dl and greater High Risk [facility] TylerLDL Snwkrxjgxwn5611-61-65 06:08:00* Test Item Value Reference Range Interpretation Comments LDL Cholesterol (test code = 2089-1) 87 60-130 [facility] Yuubwlwdewd8065-71-62 06:08:00* Test Item Value Reference Range Interpretation Comments HDL Cholesterol (test code = 2085-9) 77 40-60 H [facility] TylerCh[facility]/HDL Pnaeq4338-82-76 06:08:00 * Test Item Value Reference Range Interpretation Comments Cholesterol/HDL Ratio (test code = 9830-1) 2.5 3.0-3.6 L [facility] TylerTriglycerides Mrwqe1561-35-50 06:08:00* Test Item Value Reference Range Interpretation Comments Triglycerides Level (test code = 2571-8) 137 0-149 [facility] TylerCholesterol Jfklf3722-95-53 06:08:00* Test Item Value Reference Range Interpretation Comments Cholesterol Level (test code = 2093-3) 191 0-199 Less than 200 mg/dL Low Bzrf586 - 239 mg/dL Borderline Aixt512 m g/dl and greater High Risk [facility] TylerLDL Btpxibipppk1603-33-73 06:08:00* Test Item Value Reference Range Interpretation Comments LDL Cholesterol (test code = 2089-1) 87 60-130 [facility] Ffuuzrpiyvg6270-35-92 06:08:00* Test Item Value Reference Range Interpretation Comments HDL Cholesterol (test code = 2085-9) 77 40-60 H [facility] TylerCholesterol/HDL Oryqo6202-20-92 06:08:00 * Test Item Value Reference Range Interpretation Comments Cholesterol/HDL Ratio (test code = 9830-1) 2.5 3.0-3.6 L [facility] TylerTriglycerides Attfk8511-39-90 06:08:00* Test Item Value Reference Range Interpretation Comments Triglycerides Level (test code = 2571-8) 137 0-149 [facility] TylerCholesterol Htpje8072-84-93 06:08:00* Test Item Value Reference Range Interpretation Comments Cholesterol Level (test code = 2093-3) 191 0-199 Less than 200 mg/dL Low Fdrq606 - 239 mg/dL Borderline Sxxx778 m g/dl and greater High Risk [facility] TylerLDL Vypnuyqxppo9874-23-09 06:08:00* Test Item Value Reference Range Interpretation Comments LDL Cholesterol (test code = 2089-1) 87 60-130 [facility] TylerHDL Cvztndtyeiq2205-90-72 06:08:00* Test Item Value Reference Range Interpretation Comments HDL Cholesterol (test code = 2085-9) 77 40-60 H [facility] TylerCholesterol/HDL Ioadc5778-67-10 06:08:00 * Test Item Value Reference Range Interpretation Comments Cholesterol/HDL Ratio (test code = 9830-1) 2.5 3.0-3.6 L [facility] TylerDifferential Total Cells Counted 2018-10-28 08:32:00* Test Item Value Reference Range Interpretation Comments Differential Total Cells Counted (test code = Differnandini tial Total Cells Counted) 100 [facility] TylerNeutrophils % (Manual)2018-10-28 08:32:00 * Test Item Value Reference Range Interpretation Comments Neutrophils % (Manual) (test code = 20960-2) 67 40-74 [facility] TylerLymphocytes % (Manual)2018-10-28 08:32:00 * Test Item Value Reference Range Interpretation Comments Lymphocytes % (Manual) (test code = 737-7) 17 19-48 L [facility] TylerMonocytes % (Manual)2018-10-28 08:32:00* Test Item Value Reference Range Interpretation Comments Monocytes % (Manual) (test code = 744-3) 13 3.4-9.0 H [facility] TylerEosinophils % (Manual)2018-10-28 08:32:00 * Test Item Value Reference Range Interpretation Comments Eosinophils % (Manual) (test code = 714-6) 3 0-7 [facility] TylerPlatelet Qlgdhidh7111-39-07 08:32:00* Test Item Value Reference Range Interpretation Comments Platelet Estimate (test code = 35931-2) MODERATELY DECREASED [facility] TylerPlatelet Morphology Eqwtytn1786-28-80 08:32:00* Test Item Value Reference Range Interpretation Comments Platelet Morphology Comment (test code = 72002-3) FEW LARGE [facility] TylerRed Cell Morphology Reieivk1094-21-40 08:32:00* Test Item Value Reference Range Interpretation Comments Red Cell Morphology Comment (test code = 6742-1) NORMAL [facility] TylerDifferential Total Cells Counted 2018-10-28 08:32:00* Test Item Value Reference Range Interpretation Comments Differential Total Cells Counted (test code = Differnandini tial Total Cells Counted) 100 [facility] TylerNeutrophils % (Manual)2018-10-28 08:32:00 * Test Item Value Reference Range Interpretation Comments Neutrophils % (Manual) (test code = 57564-3) 67 40-74 [facility] TylerLymphocytes % (Manual)2018-10-28 08:32:00 * Test Item Value Reference Range Interpretation Comments Lymphocytes % (Manual) (test code = 737-7) 17 19-48 L [facility] TylerMonocytes % (Manual)2018-10-28 08:32:00* Test Item Value Reference Range Interpretation Comments Monocytes % (Manual) (test code = 744-3) 13 3.4-9.0 H [facility] TylerEosinophils % (Manual)2018-10-28 08:32:00 * Test Item Value Reference Range Interpretation Comments Eosinophils % (Manual) (test code = 714-6) 3 0-7 [facility] TylerPlatelet Srnbaqot3503-13-55 08:32:00* Test Item Value Reference Range Interpretation Comments Platelet Estimate (test code = 62570-9) MODERATELY DECREASED [facility] TylerPl[facility]let Morphology Knrdhmk8822-46-20 08:32:00* Test Item Value Reference Range Interpretation Comments Platelet Morphology Comment (test code = 60595-3) FEW LARGE [facility] TylerRed Cell Morphology Oofefch9417-33-33 08:32:00* Test Item Value Reference Range Interpretation Comments Red Cell Morphology Comment (test code = 6742-1) NORMAL [facility] TylerDifferential Total Cells Counted 2018-10-28 08:32:00* Test Item Value Reference Range Interpretation Comments Differential Total Cells Counted (test code = Differnandini tial Total Cells Counted) 100 [facility] TylerNeutrophils % (Manual)2018-10-28 08:32:00 * Test Item Value Reference Range Interpretation Comments Neutrophils % (Manual) (test code = 59224-3) 67 40-74 [facility] TylerLymphocytes % (Manual)2018-10-28 08:32:00 * Test Item Value Reference Range Interpretation Comments Lymphocytes % (Manual) (test code = 737-7) 17 19-48 L [facility] TylerMonocytes % (Manual)2018-10-28 08:32:00* Test Item Value Reference Range Interpretation Comments Monocytes % (Manual) (test code = 744-3) 13 3.4-9.0 H [facility] TylerEosinophils % (Manual)2018-10-28 08:32:00 * Test Item Value Reference Range Interpretation Comments Eosinophils % (Manual) (test code = 714-6) 3 0-7 [facility] TylerPlatelet Hexrbzli2947-05-41 08:32:00* Test Item Value Reference Range Interpretation Comments Platelet Estimate (test code = 81369-8) MODERATELY DECREASED [facility] TylerPl[facility]let Morphology Owsegfd8787-98-52 08:32:00* Test Item Value Reference Range Interpretation Comments Platelet Morphology Comment (test code = 95266-0) FEW LARGE [facility] TylerRed Cell Morphology Exmtrlq1775-45-81 08:32:00* Test Item Value Reference Range Interpretation Comments Red Cell Morphology Comment (test code = 6742-1) NORMAL [facility] TylerDifferential Total Cells Counted 2018-10-28 08:32:00* Test Item Value Reference Range Interpretation Comments Differential Total Cells Counted (test code = Differen tial Total Cells Counted) 100 [facility] TylerNeutrophils % (Manual)2018-10-28 08:32:00 * Test Item Value Reference Range Interpretation Comments Neutrophils % (Manual) (test code = 65667-1) 67 40-74 [facility] TylerLymphocytes % (Manual)2018-10-28 08:32:00 * Test Item Value Reference Range Interpretation Comments Lymphocytes % (Manual) (test code = 737-7) 17 19-48 L [facility] TylerMonocytes % (Manual)2018-10-28 08:32:00* Test Item Value Reference Range Interpretation Comments Monocytes % (Manual) (test code = 744-3) 13 3.4-9.0 H [facility] TylerEosinophils % (Manual)2018-10-28 08:32:00 * Test Item Value Reference Range Interpretation Comments Eosinophils % (Manual) (test code = 714-6) 3 0-7 [facility] TylerPl[facility] Pwkhpgwu1791-54-49 08:32:00* Test Item Value Reference Range Interpretation Comments Platelet Estimate (test code = 53039-1) MODERATELY DECREASED [facility] TylerPlatelet Morphology Wcnavub6881-79-01 08:32:00* Test Item Value Reference Range Interpretation Comments Platelet Morphology Comment (test code = 25403-8) FEW LARGE [facility] TylerRed Cell Morphology Byiimvz6687-38-85 08:32:00* Test Item Value Reference Range Interpretation Comments Red Cell Morphology Comment (test code = 6742-1) NORMAL [facility] TylerDifferential Total Cells Counted 2018-10-28 08:32:00* Test Item Value Reference Range Interpretation Comments Differential Total Cells Counted (test code = Differen tial Total Cells Counted) 100 [facility] TylerNeutrophils % (Manual)2018-10-28 08:32:00 * Test Item Value Reference Range Interpretation Comments Neutrophils % (Manual) (test code = 49492-7) 67 40-74 [facility] TylerLymphocytes % (Manual)2018-10-28 08:32:00 * Test Item Value Reference Range Interpretation Comments Lymphocytes % (Manual) (test code = 737-7) 17 19-48 [facility]2018-[facility]-28 08:32:00* Test Item Value Reference Range Interpretation Comments Monocytes % (Manual) (test code = 744-3) 13 3.4-9.0 H [facility] TylerEosinophils % (Manual)2018-10-28 08:32:00 * Test Item Value Reference Range Interpretation Comments Eosinophils % (Manual) (test code = 714-6) 3 0-7 [facility] TylerPlatelet Mqcvlghr9229-36-42 08:32:00* Test Item Value Reference Range Interpretation Comments Platelet Estimate (test code = 95683-1) MODERATELY DECREASED [facility] TylerPlatelet Morphology Ymaayjv1170-44-40 08:32:00* Test Item Value Reference Range Interpretation Comments Platelet Morphology Comment (test code = 09388-9) FEW LARGE [facility] TylerRed Cell Morphology Ciivuiy7261-64-28 08:32:00* Test Item Value Reference Range Interpretation Comments Red Cell Morphology Comment (test code = 6742-1) NORMAL [facility] TylerDifferential Total Cells Counted 2018-10-28 08:32:00* Test Item Value Reference Range Interpretation Comments Differential Total Cells Counted (test code = Differnandini tial Total Cells Counted) 100 [facility] TylerNeutrophils % (Manual)2018-10-28 08:32:00 * Test Item Value Reference Range Interpretation Comments Neutrophils % (Manual) (test code = 10929-3) 67 40-74 [facility] TylerLymphocytes % (Manual)2018-10-28 08:32:00 * Test Item Value Reference Range Interpretation Comments Lymphocytes % (Manual) (test code = 737-7) 17 19-48 L [facility] TylerMonocytes % (Manual)2018-10-28 08:32:00* Test Item Value Reference Range Interpretation Comments Monocytes % (Manual) (test code = 744-3) 13 3.4-9.0 H [facility] TylerEosinophils % (Manual)2018-10-28 08:32:00 * Test Item Value Reference Range Interpretation Comments Eosinophils % (Manual) (test code = 714-6) 3 0-7 [facility] TylerPlatelet Dtjopcsh7438-14-12 08:32:00* Test Item Value Reference Range Interpretation Comments Platelet Estimate (test code = 79002-8) MODERATELY DECREASED [facility] TylerPlatelet Morphology Iqydbjz2627-40-65 08:32:00* Test Item Value Reference Range Interpretation Comments Platelet Morphology Comment (test code = 68673-6) FEW LARGE [facility] TylerRed Cell Morphology Mgxrdhk0840-63-29 08:32:00* Test Item Value Reference Range Interpretation Comments Red Cell Morphology Comment (test code = 6742-1) NORMAL [facility] TylerDifferential Total Cells Counted 2018-10-28 08:32:00* Test Item Value Reference Range Interpretation Comments Differential Total Cells Counted (test code = Differnandini tial Total Cells Counted) 100 [facility] TylerNeutrophils % (Manual)2018-10-28 08:32:00 * Test Item Value Reference Range Interpretation Comments Neutrophils % (Manual) (test code = 38059-6) 67 40-74 [facility] TylerLymphocytes % (Manual)2018-10-28 08:32:00 * Test Item Value Reference Range Interpretation Comments Lymphocytes % (Manual) (test code = 737-7) 17 19-48 L [facility] TylerMonocytes % (Manual)2018-10-28 08:32:00* Test Item Value Reference Range Interpretation Comments Monocytes % (Manual) (test code = 744-3) 13 3.4-9.0 H [facility] TylerEosinophils % (Manual)2018-10-28 08:32:00 * Test Item Value Reference Range Interpretation Comments Eosinophils % (Manual) (test code = 714-6) 3 0-7 [facility] TylerPlatelet Vpvhoxii5727-16-26 08:32:00* Test Item Value Reference Range Interpretation Comments Platelet Estimate (test code = 69589-5) MODERATELY DECREASED [facility] TylerPlatelet Morphology Ossymoe9159-88-34 08:32:00* Test Item Value Reference Range Interpretation Comments Platelet Morphology Comment (test code = 64915-8) FEW LARGE [facility] TylerRed Cell Morphology Dyctrdz0938-57-51 08:32:00* Test Item Value Reference Range Interpretation Comments Red Cell Morphology Comment (test code = 6742-1) [facility] Grnwn3477-69-87 06:22:00* Test Item Value Reference Range Interpretation Comments Sodium Level (test code = 2951-2) 137 136-145 [facility] TylerPotassium Xjsrt7687-29-76 06:22:00* Test Item Value Reference Range Interpretation Comments Potassium Level (test code = 2823-3) 4.9 3.5-5.1 [facility] TylerChloride Hbrun4957-07-78 06:22:00* Test Item Value Reference Range Interpretation Comments Chloride Level (test code = 2075-0) 96 98-107 L [facility] TylerCarbon Dioxide Finas3681-25-09 06:22:00* Test Item Value Reference Range Interpretation Comments Carbon Dioxide Level (test code = 2028-9) 22 22-29 [facility] TylerAnion Cru4795-35-20 06:22:00* Test Item Value Reference Range Interpretation Comments Anion Gap (test code = 55851-5) 23.9 8-16 H [facility] TylerBlood Urea Vbxmwyca4199-64-40 06:22:00* Test Item Value Reference Range Interpretation Comments Blood Urea Nitrogen (test code = 3094-0) 56 7-26 H [facility] TylerCreatinine2019-09-18 06:22:00* Test Item Value Reference Range Interpretation Comments Creatinine (test code = 2160-0) 6.60 0.57-1.11 H [facility] TylerBUN/Creatinine Myoty8074-11-95 06:22:00* Test Item Value Reference Range Interpretation Comments BUN/Creatinine Ratio (test code = 3097-3) 8 6-25 [facility] TylerEstimat Glomerular Filtration Rate 2018-10-28 06:22:00* Test Item Value Reference Range Interpretation Comments Estimat Glomerular Filtration Rate (test code = 764487373) 6 >60 L Ranges were taken from the National Kidney Disease Education Program and the [facility] literature.Reference ranges:60 or greater: Nyqhmy01-56 ( for 3 consecutive months): Chronic kidney disease 15 or less: Kidney failureCHRISTUS Mother Frances Hospital – TylerGlucose Zqqen5967-82-29 06:22:00* Test Item Value Reference Range Interpretation Comments Glucose Level (test code = MQS0805) 341 74-118 H [facility] TylerCalcium Ttmgd5767-43-59 06:22:00* Test Item Value Reference Range Interpretation Comments Calcium Level (test code = 75165-4) 10.1 8.4-10.2 [facility] TylerCreatine Kinase RO7221-37-04 06:10:00* Test Item Value Reference Range Interpretation Comments Creatine Kinase MB (test code = 00479-1) 5.10 0-5.0 H [facility] TylerTroponin I8880-14-98 06:10:00* Test Item Value Reference Range Interpretation Comments Troponin I (test code = FHQ5174) 1.339 0-0.300 H Elevated result called to Kvng Webb/CHARANJIT at 0608 on 10/28/18 by [place] riderCHRISTUS [facility] – TylerCreatine Utigfc6560-49-22 05:48:00* Test Item Value Reference Range Interpretation Comments Creatine Kinase (test code = 2157-6) 41 29-168 [facility] TylerWhite Blood Cetxb5086-85-68 05:43:00* Test Item Value Reference Range Interpretation Comments White Blood Count (test code = 6690-2) 6.31 4.8-10.8 [facility] TylerRed Blood Ytlrw2039-62-99 05:43:00* Test Item Value Reference Range Interpretation Comments Red Blood Count (test code = 789-8) 3.07 3.6-5.1 L [facility] TylerHemoglobin2019-09-18 05:43:00* Test Item Value Reference Range Interpretation Comments Hemoglobin (test code = 30184-1) 10.3 12.0-16.0 L [facility] TylerHematocrit2019-09-18 05:43:00* Test Item Value Reference Range Interpretation Comments Hematocrit (test code = 4544-3) 31.0 34.2-44.1 L [facility] TylerMean Corpuscular Fvhwdf2090-83-45 05:43:00* Test Item Value Reference Range Interpretation Comments Mean Corpuscular Volume (test code = 787-2) 101.0 81-99 H [facility] TylerMean Corpuscular Bevozuoebr0219-83-56 05:43:00* Test Item Value Reference Range Interpretation Comments Mean Corpuscular Hemoglobin (test code = 785-6) 33.6 28-32 H [facility] TylerMean Corpuscular Hemoglobin Concent 2018-10-28 05:43:00* Test Item Value Reference Range Interpretation Comments Mean Corpuscular Hemoglobin Concent (test code = 786-4) 33.2 31-35 [facility] TylerRed Cell Distribution Wdcov5147-91-50 05:43:00* Test Item Value Reference Range Interpretation Comments Red Cell Distribution Width (test code = 17360-7) 13.8 11.7 -14.4 [facility] TylerPlatelet Jpljf3052-06-90 05:43:00* Test Item Value Reference Range Interpretation Comments Platelet Count (test code = 777-3) 199 140-360 [facility] TylerNeutrophils (%) (Auto)2018-10-28 05:43:00 * Test Item Value Reference Range Interpretation Comments Neutrophils (%) (Auto) (test code = 82425-1) 72.4 38.7-80.0 [facility] TylerLymphocytes (%) (Auto)2018-10-28 05:43:00 * Test Item Value Reference Range Interpretation Comments Lymphocytes (%) (Auto) (test code = 736-9) 10.0 18.0-39.1 L [facility] TylerMonocytes (%) (Auto)2018-10-28 05:43:00* Test Item Value Reference Range Interpretation Comments Monocytes (%) (Auto) (test code = 5905-5) 13.9 4.4-11.3 H [facility] TylerEosinophils (%) (Auto)2018-10-28 05:43:00 * Test Item Value Reference Range Interpretation Comments Eosinophils (%) (Auto) (test code = 713-8) 2.9 0.0-6.0 [facility] TylerBasophils (%) (Auto)2018-10-28 05:43:00* Test Item Value Reference Range Interpretation Comments Basophils (%) (Auto) (test code = 706-2) 0.3 0.0-1.0 [facility] TylerIM GRANULOCYTES %2018-10-28 05:43:00* Test Item Value Reference Range Interpretation Comments IM GRANULOCYTES % (test code = IM GRANULOCYTES %) 0.5 0.0- 1.0 [facility] TylerNeutrophils # (Auto)2018-10-28 05:43:00* Test Item Value Reference Range Interpretation Comments Neutrophils # (Auto) (test code = 751-8) 4.6 2.1-6.9 [facility] TylerLymphocytes # (Auto)2018-10-28 05:43:00* Test Item Value Reference Range Interpretation Comments Lymphocytes # (Auto) (test code = 46928-5) 0.6 1.0-3.2 L [facility] TylerMonocytes # (Auto)2018-10-28 05:43:00* Test Item Value Reference Range Interpretation Comments Monocytes # (Auto) (test code = 742-7) 0.9 0.2-0.8 H [facility] TylerEosinophils # (Auto)2018-10-28 05:43:00* Test Item Value Reference Range Interpretation Comments Eosinophils # (Auto) (test code = 711-2) 0.2 0.0-0.4 [facility] TylerBasophils # (Auto)2018-10-28 05:43:00* Test Item Value Reference Range Interpretation Comments Basophils # (Auto) (test code = 704-7) 0.0 0.0-0.1 [facility] TylerAbsolute Immature Granulocyte (auto 2018-10-28 05:43:00* Test Item Value Reference Range Interpretation Comments Absolute Immature Granulocyte (auto (carine t code = Absolute Immature Granulocyte (auto) 0.03 0-0.1 [facility] TylerLactic Acid Yogms0580-75-09 18:39:00* Test Item Value Reference Range Interpretation Comments Lactic Acid Level (test code = Lactic Acid Level) 9.5 4.5- 19.8 [facility] TylerLactic Acid Vsvup4234-09-86 18:39:00* Test Item Value Reference Range Interpretation Comments Lactic Acid Level (test code = Lactic Acid Level) 9.5 4.5- 19.8 [facility] TylerLactic Acid Ziqzl6940-61-93 18:39:00* Test Item Value Reference Range Interpretation Comments Lactic Acid Level (test code = Lactic Acid Level) 9.5 4.5- 19.8 [facility] TylerLactic Acid Ptptq9359-50-09 18:39:00* Test Item Value Reference Range Interpretation Comments Lactic Acid Level (test code = Lactic Acid Level) 9.5 4.5- 19.8 [facility] TylerArterial Blood vC5446-20-95 13:58:00* Test Item Value Reference Range Interpretation Comments Arterial Blood pH (test code = 2744-1) 7.32 7.31-7.41 [facility] TylerArterial Blood Partial Pressure CO2 2018-10-27 13:58:00* Test Item Value Reference Range Interpretation Comments Arterial Blood Partial Pressure CO2 (test code = 2018-09) 30 41-51 L [facility] TylerArterial Blood Partial Pressure O2 2018-10-27 13:58:00* Test Item Value Reference Range Interpretation Comments Arterial Blood Partial Pressure O2 (test code = 2018-09) 110 80-105 H [facility] TylerArterial Blood JJL73583-65-59 13:58:00* Test Item Value Reference Range Interpretation Comments Arterial Blood HCO3 (test code = 1960-4) 15 23-28 L [facility] TylerArterial Blood Base Nomirs1614-77-36 13:58:00* Test Item Value Reference Range Interpretation Comments Arterial Blood Base Excess (test code = 1925-7) -11.0 -2-3 L [facility] TylerArterial Blood Oxygen Saturation 2018-10-27 13:58:00* Test Item Value Reference Range Interpretation Comments Arterial Blood Oxygen Saturation (test code = 2708-6) 98.0 95-98 [facility] TylerFiO22019-09-17 13:58:00* Test Item Value Reference Range Interpretation Comments FiO2 (test code = FiO2) 40 Pt was on 40% Bipap /5/R/12/40% when ABG was drawnCH[facility] TylerB-Type Natriuretic Aywqstw0772-68-11 12:17:00* Test Item Value Reference Range Interpretation Comments B-Type Natriuretic Peptide (test code = 62088-6) 2390.1 0-100 H [facility] TylerTotal Sqhoekcvy8834-99-90 11:51:00* Test Item Value Reference Range Interpretation Comments Total Bilirubin (test code = 1975-2) 0.6 0.2-1.2 [facility] TylerAspartate Amino Transf (AST/SGOT) 2018-10-27 11:51:00* Test Item Value Reference Range Interpretation Comments Aspartate Amino Transf (AST/SGOT) (test code = Aspartate Amino Transf (AST/SGOT)) 17 5-34 [facility] TylerAlanine Aminotransferase (ALT/SGPT) 2018-10-27 11:51:00* Test Item Value Reference Range Interpretation Comments Alanine Aminotransferase (ALT/SGPT) (test code = 1742-6) 27 0-55 [facility] TylerTotal Rafngzc0062-18-80 11:51:00* Test Item Value Reference Range Interpretation Comments Total Protein (test code = 2885-2) 6.3 6.5-8.1 L [facility] TylerAlbumin2019-09-17 11:51:00* Test Item Value Reference Range Interpretation Comments Albumin (test code = 1751-7) 3.2 3.5-5.0 L [facility] TylerGlobulin2019-09-17 11:51:00* Test Item Value Reference Range Interpretation Comments Globulin (test code = 92573-5) 3.1 2.3-3.5 [facility] TylerAlbumin/Globulin Mzvqx2300-60-38 11:51:00 * Test Item Value Reference Range Interpretation Comments Albumin/Globulin Ratio (test code = 1759-0) 1.0 0.8-2.0 [facility] TylerAlkaline Vvimrniepvy7479-94-69 11:51:00* Test Item Value Reference Range Interpretation Comments Alkaline Phosphatase (test code = 6768-6) 116 40-150 [facility] TylerCHEST SINGLE (PORTABLE)2018-10-27 11:26:00 [facility] [address] [address] Patient Name: YARITZA JOSEPH MR #: [id number] : 1960 Age/Sex: 58/F Req #: [id number] Adm Physician: Ordered by: ADIN SCOTT MD Report #: [id number] Location: ER Room/Bed: Procedure: [id number] DX/CHEST SINGLE (PORTABLE) Exam Date: 10/27/18 Exam [...] SRIRAM ARTHUR MD Electronically Si gned By: SRRIAM ARTHUR MD on 10/27/181127 Transcribed By: FRANCISCO J on 10/27/181127 COPY TO: ADIN SCOTT MD CHEST SINGLE (PORTABLE) 2018-03-23 07:39:00 [address] [place] [address] Patient Name: YARITZA JOSEPH MR #: [id number] : 1960 Age/Sex: 57/F Req #: [id number] Adm Physician: Ordered by: NAFISA LARES MD Report #: [id number] Location: ER Room/Bed: Procedure: [id number] DX/CHEST SINGLE (PORTABLE) Exam Date: 03/23/18 [...] y Signed By: GUSTAVO ALFRED MD on 03/23/18743 Transcribed By: FRANCISCO J on 03/23/18743 COPY TO: NAFISA LARES MD Creatine Kinase MB 2018-03-23 07:26:00* Test Item Value Reference Range Interpretation Comments Creatine Kinase MB (test code = 89544-0) 1.40 0-5.0 [facility] TylerTroponin [id number] 07:26:00* Test Item Value Reference Range Interpretation Comments Troponin I (test code = DSX5337) 0.027 0-0.300 [facility] TylerB-Type Natriuretic Asseafj9401-36-96 07:25:00* Test Item Value Reference Range Interpretation Comments B-Type Natriuretic Peptide (test code = 98465-0) 1459.7 0-100 [facility] Opvmd4002-32-90 07:20:00* Test Item Value Reference Range Interpretation Comments Sodium Level (test code = 2951-2) 138 136-145 [facility] TylerPotassium Hsnhh0847-78-41 07:20:00* Test Item Value Reference Range Interpretation Comments Potassium Level (test code = 2823-3) 4.3 3.5-5.1 [facility] TylerChloride Vlzii0426-00-70 07:20:00* Test Item Value Reference Range Interpretation Comments Chloride Level (test code = 2075-0) 106 98-107 [facility] TylerCarbon Dioxide Fjsjh7232-66-54 07:20:00* Test Item Value Reference Range Interpretation Comments Carbon Dioxide Level (test code = 2028-9) 17 22-29 L [facility] TylerAnion Esa6102-06-80 07:20:00* Test Item Value Reference Range Interpretation Comments Anion Gap (test code = 79544-1) 19.3 8-16 H [facility] TylerBlood Urea Avrczoma8124-90-31 07:20:00* Test Item Value Reference Range Interpretation Comments Blood Urea Nitrogen (test code = 3094-0) 61 7-26 H [facility] TylerCreatinine2019-02-11 07:20:00* Test Item Value Reference Range Interpretation Comments Creatinine (test code = 2160-0) 8.13 0.57-1.11 H [facility] TylerBUN/Creatinine Tmvsy3721-76-89 07:20:00* Test Item Value Reference Range Interpretation Comments BUN/Creatinine Ratio (test code = 3097-3) 8 6-25 [facility] TylerEstimat Glomerular Filtration Rate 2018-03-23 07:20:00* Test Item Value Reference Range Interpretation Comments Estimat Glomerular Filtration Rate (test code = 049896041) 5 >60 L Ranges were taken from the National Kidney Disease Education Program and the [facility] literature.Reference ranges:60 or greater: Ptndeh67-55 ( for 3 consecutive months): Chronic kidney disease 15 or less: Kidney failureCHI Memorial Hermann Greater Heights HospitalGlucose Jzopa4548-60-97 07:20:00* Test Item Value Reference Range Interpretation Comments Glucose Level (test code = LPM7380) 197 74-118 H [facility] TylerCalcium Lubae9408-33-98 07:20:00* Test Item Value Reference Range Interpretation Comments Calcium Level (test code = 48091-4) 9.0 8.4-10.2 [facility] TylerTotal Ysstbbuaz8998-07-97 07:20:00* Test Item Value Reference Range Interpretation Comments Total Bilirubin (test code = 1975-2) 0.7 0.2-1.2 [facility] TylerAspartate Amino Transf (AST/SGOT) 2018-03-23 07:20:00* Test Item Value Reference Range Interpretation Comments Aspartate Amino Transf (AST/SGOT) (test code = Aspartate Amino Transf (AST/SGOT)) 16 5-34 [facility] TylerAlanine Aminotransferase (ALT/SGPT) 2018-03-23 07:20:00* Test Item Value Reference Range Interpretation Comments Alanine Aminotransferase (ALT/SGPT) (test code = 1742-6) 20 0-55 [facility] TylerTotal Vmxvdyq5325-39-14 07:20:00* Test Item Value Reference Range Interpretation Comments Total Protein (test code = 2885-2) 6.5 6.5-8.1 [facility] TylerAlbumin2019-02-11 07:20:00* Test Item Value Reference Range Interpretation Comments Albumin (test code = 1751-7) 3.6 3.5-5.0 [facility] TylerGlobulin2019-02-11 07:20:00* Test Item Value Reference Range Interpretation Comments Globulin (test code = 80797-4) 2.9 2.3-3.5 [facility] TylerAlbumin/Globulin Zhoza0769-79-21 07:20:00 * Test Item Value Reference Range Interpretation Comments Albumin/Globulin Ratio (test code = 1759-0) 1.2 0.8-2.0 [facility] TylerAlkaline Yrjaqcvwmtc1789-09-91 07:20:00* Test Item Value Reference Range Interpretation Comments Alkaline Phosphatase (test code = 6768-6) 81 40-150 [facility] TylerCreatine Xlkzcv9402-89-14 07:20:00* Test Item Value Reference Range Interpretation Comments Creatine Kinase (test code = 2157-6) 28 29-168 L [facility] TylerWhite Blood Mqrok0844-76-97 06:57:00* Test Item Value Reference Range Interpretation Comments White Blood Count (test code = 6690-2) 7.69 4.8-10.8 [facility] TylerRed Blood Vqzao7291-05-53 06:57:00* Test Item Value Reference Range Interpretation Comments Red Blood Count (test code = 789-8) 3.14 3.6-5.1 L [facility] TylerHemoglobin2019-02-11 06:57:00* Test Item Value Reference Range Interpretation Comments Hemoglobin (test code = 12294-7) 10.2 12.0-16.0 L [facility] TylerHematocrit2019-02-11 06:57:00* Test Item Value Reference Range Interpretation Comments Hematocrit (test code = 4544-3) 31.3 34.2-44.1 L [facility] TylerMean Corpuscular Kypljr5315-41-12 06:57:00* Test Item Value Reference Range Interpretation Comments Mean Corpuscular Volume (test code = 787-2) 99.7 81-99 H [facility] TylerMean Corpuscular Qbfsxvstig6139-96-66 06:57:00* Test Item Value Reference Range Interpretation Comments Mean Corpuscular Hemoglobin (test code = 785-6) 32.5 28-32 H [facility] TylerMean Corpuscular Hemoglobin Concent 2018-03-23 06:57:00* Test Item Value Reference Range Interpretation Comments Mean Corpuscular Hemoglobin Concent (test code = 786-4) 32.6 31-35 [facility] TylerRed Cell Distribution Vhenf2672-38-32 06:57:00* Test Item Value Reference Range Interpretation Comments Red Cell Distribution Width (test code = 98412-5) 14.2 11.7 -14.4 [facility] TylerPlatelet Mpmoa2621-33-14 06:57:00* Test Item Value Reference Range Interpretation Comments Platelet Count (test code = 777-3) 222 140-360 [facility] TylerNeutrophils (%) (Auto)2018-03-23 06:57:00 * Test Item Value Reference Range Interpretation Comments Neutrophils (%) (Auto) (test code = 36187-2) 73.6 38.7-80.0 [facility] TylerLymphocytes (%) (Auto)2018-03-23 06:57:00 * Test Item Value Reference Range Interpretation Comments Lymphocytes (%) (Auto) (test code = 736-9) 13.8 18.0-39.1 L [facility] TylerMonocytes (%) (Auto)2018-03-23 06:57:00* Test Item Value Reference Range Interpretation Comments Monocytes (%) (Auto) (test code = 5905-5) 10.0 4.4-11.3 [facility] TylerEosinophils (%) (Auto)2018-03-23 06:57:00 * Test Item Value Reference Range Interpretation Comments Eosinophils (%) (Auto) (test code = 713-8) 1.8 0.0-6.0 [facility] TylerBasophils (%) (Auto)2018-03-23 06:57:00* Test Item Value Reference Range Interpretation Comments Basophils (%) (Auto) (test code = 706-2) 0.4 0.0-1.0 [facility] TylerIM GRANULOCYTES %2018-03-23 06:57:00* Test Item Value Reference Range Interpretation Comments IM GRANULOCYTES % (test code = IM GRANULOCYTES %) 0.4 0.0- 1.0 [facility] TylerNeutrophils # (Auto)2018-03-23 06:57:00* Test Item Value Reference Range Interpretation Comments Neutrophils # (Auto) (test code = 751-8) 5.7 2.1-6.9 [facility] TylerLymphocytes # (Auto)2018-03-23 06:57:00* Test Item Value Reference Range Interpretation Comments Lymphocytes # (Auto) (test code = 93893-3) 1.1 1.0-3.2 [facility] TylerMonocytes # (Auto)2018-03-23 06:57:00* Test Item Value Reference Range Interpretation Comments Monocytes # (Auto) (test code = 742-7) 0.8 0.2-0.8 [facility] TylerEosinophils # (Auto)2018-03-23 06:57:00* Test Item Value Reference Range Interpretation Comments Eosinophils # (Auto) (test code = 711-2) 0.1 0.0-0.4 [facility] TylerBasophils # (Auto)2018-03-23 06:57:00* Test Item Value Reference Range Interpretation Comments Basophils # (Auto) (test code = 704-7) 0.0 0.0-0.1 [facility] TylerAbsolute Immature Granulocyte (auto 2018-03-23 06:57:00* Test Item Value Reference Range Interpretation Comments Absolute Immature Granulocyte (auto (carine t code = Absolute Immature Granulocyte (auto) 0.03 0-0.1 [facility] TylerBlood Zflkurr6865-13-63 10:25:00* Test Item Value Reference Range Interpretation Comments Blood Culture (test code = 600-7) Organism: STAPH HOMINIS SUB HOMIN IS [facility] Lhlhkmj7268-61-76 18:05:00* Test Item Value Reference Range Interpretation Comments Blood Culture (test code = 44495983) NO GROWTH AFTER 5 DAYS, FINAL REPORT [facility] Itgcdsi2410-82-71 15:36:00* Test Item Value Reference Range Interpretation Comments Bedside Glucose (test code = 35948-6) 100 70-120 Meter ID: [id number] [facility] Glucose 2017-07-16 15:36:00* Test Item Value Reference Range Interpretation Comments Bedside Glucose (test code = 93763-9) 100 70-120 Meter ID: [id number] A IgM Xdeqmrre0354-85-60 10:01:00* Test Item Value Reference Range Interpretation Comments Hepatitis A IgM Antibody (test code = 35503-8) Negative [facility] B Surface Gryypos3460-85-61 10:01:00* Test Item Value Reference Range Interpretation Comments Hepatitis B Surface Antigen (test code = 5196-1) Negative [facility] B Core IgM Tsczfzth8610-78-49 10:01:00* Test Item Value Reference Range Interpretation Comments Hepatitis B Core IgM Antibody (test code = 77444-2) Negative [facility] C Yznqzgvy1555-59-98 10:01:00* Test Item Value Reference Range Interpretation Comments Hepatitis C Antibody (test code = 75208-9) -0.1 Reference Range: 0.0 - 0.9 s/co ratioNegative: < 0.8Indeterminate: 0.8 - 0.9Positive: > 0.9The CDC recommends that a positive HCV antibody resultbe followed up with a HCV Nucleic Acid Amplificationtest (960752).[facility] [address] [place] [address]Whq: Edmond Mcneil MDFor inquiries, the physician may contact Branch: [phone] Lab: [phone] Medical Center A IgM Ujqtjdud0096-82-41 10:01:00* Test Item Value Reference Range Interpretation Comments Hepatitis A IgM Antibody (test code = 43157-8) Negative [facility] B Surface Zfrbdzk6870-51-49 10:01:00* Test Item Value Reference Range Interpretation Comments Hepatitis B Surface Antigen (test code = 5196-1) Negative [facility] B Core IgM Cutxjtaq5519-81-18 10:01:00* Test Item Value Reference Range Interpretation Comments Hepatitis B Core IgM Antibody (test code = 87084-4) Negative [facility] C Dndritlu2995-29-28 10:01:00* Test Item Value Reference Range Interpretation Comments Hepatitis C Antibody (test code = 96874-7) <0.1 Reference Range: 0.0 - 0.9 s/co ratioNegative: < 0.8Indeterminate: 0.8 - 0.9Positive: > 0.9The CDC recommends that a positive HCV antibody resultbe followed up with a HCV Nucleic Acid Amplificationtest (233786).[facility] [address] [address]Rze: Edmond Mcneil MDFor inquiries, the physician may contact Branch: [phone] Lab: [phone] Medical Center B Surface Antibody, Cmyew4519-44-55 08:56:00* Test Item Value Reference Range Interpretation Comments Hepatitis B Surface Antibody, Quant (test code = 5194-6) 78.5 Immunity>9.9 Status of Immunity Anti-HBs Level Inconsistent with Immunity 0.0 - 9.9Consistent with Immunity >9.9[facility] B Core Total Trtigeoj6979-03-48 08:56:00* Test Item Value Reference Range Interpretation Comments Hepatitis B Core Total Antibody (test code = 51297-2) Negative Negative Performed at: - [facility] [id number] Director: Edmond Mcneil MD, Phone: [phone] Mother Frances Hospital – TylerHepatitis B Surface Antibody, Gtpvp6841-00-51 08:56:00* Test Item Value Reference Range Interpretation Comments Hepatitis B Surface Antibody, Quant (test code = 5194-6) 78.5 Immunity>9.9 Status of Immunity Anti-HBs Level Inconsistent with Immunity 0.0 - 9.9Consistent with Immunity >9.9[facility] Core Total Vdavyxfw1059-28-14 08:56:00* Test Item Value Reference Range Interpretation Comments Hepatitis B Core Total Antibody (test code = 45456-8) Negative Negative Performed at: - [facility] [id number] Director: Edmond Mcneil MD, Phone: [phone] Arts Hospitalodium Eypfz3138-03-61 07:21:00* Test Item Value Reference Range Interpretation Comments Sodium Level (test code = 2951-2) 134 136-145 L [facility] TylerPotassium Ugoip7712-30-30 07:21:00* Test Item Value Reference Range Interpretation Comments Potassium Level (test code = 2823-3) 4.1 3.5-5.1 [facility] TylerChloride Dcdnd6601-08-15 07:21:00* Test Item Value Reference Range Interpretation Comments Chloride Level (test code = 2075-0) 101 98-107 [facility] TylerCarbon Dioxide Ioheu8130-25-60 07:21:00* Test Item Value Reference Range Interpretation Comments Carbon Dioxide Level (test code = 2028-9) 23 22-29 [facility] TylerAnion Aro3070-27-84 07:21:00* Test Item Value Reference Range Interpretation Comments Anion Gap (test code = 73729-8) 14.1 8-16 [facility] TylerBlood Urea Utzrvwyq5724-87-45 07:21:00* Test Item Value Reference Range Interpretation Comments Blood Urea Nitrogen (test code = 3094-0) 48 7-26 H [facility] TylerCreatinine2018-06-05 07:21:00* Test Item Value Reference Range Interpretation Comments Creatinine (test code = 2160-0) 5.21 0.57-1.11 H [facility] TylerBUN/Creatinine Pyerg8408-21-08 07:21:00* Test Item Value Reference Range Interpretation Comments BUN/Creatinine Ratio (test code = 3097-3) 9 6-25 [facility] TylerEstimat Glomerular Filtration Rate 2017-07-15 07:21:00* Test Item Value Reference Range Interpretation Comments Estimat Glomerular Filtration Rate (test code = 68983-7) 9 >60 L Ranges were taken from the National Kidney Disease Education Program and the Replaced by [facility] literature.Reference ranges:60 or greater: Ymgcbe65-12 ( for 3 consecutive months): Chronic kidney disease 15 or less: Kidney failureCHRISTUS Mother Frances Hospital – TylerGlucose Kklpv0441-30-30 07:21:00* Test Item Value Reference Range Interpretation Comments Glucose Level (test code = CXR3459) 143 74-118 H [facility] TylerCalcium Bjtii8272-14-39 07:21:00* Test Item Value Reference Range Interpretation Comments Calcium Level (test code = 17882-9) 8.9 8.4-10.2 [facility] TylerWhite Blood Wgxsg8919-25-84 07:16:00* Test Item Value Reference Range Interpretation Comments White Blood Count (test code = 6690-2) 4.73 4.8-10.8 L [facility] TylerRed Blood Hgezh4205-23-41 07:16:00* Test Item Value Reference Range Interpretation Comments Red Blood Count (test code = 789-8) 3.23 3.6-5.1 L [facility] TylerHemoglobin2018-06-05 07:16:00* Test Item Value Reference Range Interpretation Comments Hemoglobin (test code = 13966-4) 10.0 12.0-16.0 L [facility] TylerHematocrit2018-06-05 07:16:00* Test Item Value Reference Range Interpretation Comments Hematocrit (test code = 4544-3) 29.8 34.2-44.1 L [facility] TylerMean Corpuscular Psjyrd2635-32-37 07:16:00* Test Item Value Reference Range Interpretation Comments Mean Corpuscular Volume (test code = 787-2) 92.3 81-99 [facility] TylerMean Corpuscular Edimnikhml3076-46-42 07:16:00* Test Item Value Reference Range Interpretation Comments Mean Corpuscular Hemoglobin (test code = 785-6) 31.0 28-32 [facility] Corpuscular Hemoglobin Concent 2017-07-15 07:16:00* Test Item Value Reference Range Interpretation Comments Mean Corpuscular Hemoglobin Concent (test code = 786-4) 33.6 31-35 [facility] TylerRed Cell Distribution Xxfnx8356-77-38 07:16:00* Test Item Value Reference Range Interpretation Comments Red Cell Distribution Width (test code = 29278-6) 14.5 11.7 -14.4 H [facility] TylerPlatelet Chtha3293-19-15 07:16:00* Test Item Value Reference Range Interpretation Comments Platelet Count (test code = 777-3) 229 140-360 [facility] TylerNeutrophils (%) (Auto)2017-07-15 07:16:00 * Test Item Value Reference Range Interpretation Comments Neutrophils (%) (Auto) (test code = 61576-9) 72.7 38.7-80.0 [facility] TylerLymphocytes (%) (Auto)2017-07-15 07:16:00 * Test Item Value Reference Range Interpretation Comments Lymphocytes (%) (Auto) (test code = 736-9) 14.4 18.0-39.1 L [facility] TylerMonocytes (%) (Auto)2017-07-15 07:16:00* Test Item Value Reference Range Interpretation Comments Monocytes (%) (Auto) (test code = 5905-5) 10.4 4.4-11.3 [facility] TylerEosinophils (%) (Auto)2017-07-15 07:16:00 * Test Item Value Reference Range Interpretation Comments Eosinophils (%) (Auto) (test code = 713-8) 1.7 0.0-6.0 [facility] TylerBasophils (%) (Auto)2017-07-15 07:16:00* Test Item Value Reference Range Interpretation Comments Basophils (%) (Auto) (test code = 706-2) 0.4 0.0-1.0 [facility] TylerIM GRANULOCYTES %2017-07-15 07:16:00* Test Item Value Reference Range Interpretation Comments IM GRANULOCYTES % (test code = IM GRANULOCYTES %) 0.4 0.0- 1.0 [facility] TylerNeutrophils # (Auto)2017-07-15 07:16:00* Test Item Value Reference Range Interpretation Comments Neutrophils # (Auto) (test code = 751-8) 3.4 2.1-6.9 [facility] TylerLymphocytes # (Auto)2017-07-15 07:16:00* Test Item Value Reference Range Interpretation Comments Lymphocytes # (Auto) (test code = 10436-0) 0.7 1.0-3.2 L [facility] TylerMonocytes # (Auto)2017-07-15 07:16:00* Test Item Value Reference Range Interpretation Comments Monocytes # (Auto) (test code = 742-7) 0.5 0.2-0.8 [facility] TylerEosinophils # (Auto)2017-07-15 07:16:00* Test Item Value Reference Range Interpretation Comments Eosinophils # (Auto) (test code = 711-2) 0.1 0.0-0.4 [facility] TylerBasophils # (Auto)2017-07-15 07:16:00* Test Item Value Reference Range Interpretation Comments Basophils # (Auto) (test code = 704-7) 0.0 0.0-0.1 [facility] TylerAbsolute Immature Granulocyte (auto 2017-07-15 07:16:00* Test Item Value Reference Range Interpretation Comments Absolute Immature Granulocyte (auto (carine t code = Absolute Immature Granulocyte (auto) 0.02 0-0.1 [facility] TylerBlood Bmpsmvh6896-86-68 13:42:00* Test Item Value Reference Range Interpretation Comments Blood Culture (test code = 600-7) Organism: STAPH HOMINIS SUB HOMIN IS [facility] Occult Ntbzk3519-56-40 19:05:00* Test Item Value Reference Range Interpretation Comments Stool Occult Blood (test code = 2335-8) NEGATIVE NEGATIVE [facility] Occult Paifv7456-94-24 19:05:00* Test Item Value Reference Range Interpretation Comments Stool Occult Blood (test code = 2335-8) NEGATIVE NEGATIVE [facility] TylerVitamin B12 Ndapk0661-65-72 16:17:00* Test Item Value Reference Range Interpretation Comments Vitamin B12 Level (test code = 81924-7) 279 213-816 [facility] TylerVitamin B12 Jwyyn9797-73-38 16:17:00* Test Item Value Reference Range Interpretation Comments Vitamin B12 Level (test code = 55109-3) 279 213-816 [facility] TylerFerritin2018-06-03 16:10:00* Test Item Value Reference Range Interpretation Comments Ferritin (test code = 2276-4) 203.03 4.63-204.00 [facility] TylerFerritin2018-06-03 16:10:00* Test Item Value Reference Range Interpretation Comments Ferritin (test code = 2276-4) 203.03 4.63-204.00 [facility] TylerIron Vykwm9892-49-13 15:55:00* Test Item Value Reference Range Interpretation Comments Iron Level (test code = 2498-4) 52 50-170 [facility] TylerTotal Iron Binding Jidckmiz5197-43-45 15:55:00* Test Item Value Reference Range Interpretation Comments Total Iron Binding Capacity (test code = 2500-7) 267 261-4 78 [facility] TylerPercent Iron Mnvgvzdfnd9467-97-50 15:55:00* Test Item Value Reference Range Interpretation Comments Percent Iron Saturation (test code = 2502-3) 19 15-50 [facility] TylerTransferrin2018-06-03 15:55:00* Test Item Value Reference Range Interpretation Comments Transferrin (test code = 3034-6) 191 180-382 [facility] TylerIron Jsilu3175-14-15 15:55:00* Test Item Value Reference Range Interpretation Comments Iron Level (test code = 2498-4) 52 50-170 [facility] TylerTotal Iron Binding Ohelrwkr5544-13-71 15:55:00* Test Item Value Reference Range Interpretation Comments Total Iron Binding Capacity (test code = 2500-7) 267 261-4 78 [facility] TylerPercent Iron Qictgqyzdg7251-21-57 15:55:00* Test Item Value Reference Range Interpretation Comments Percent Iron Saturation (test code = 2502-3) 19 15-50 [facility] TylerTransferrin2018-06-03 15:55:00* Test Item Value Reference Range Interpretation Comments Transferrin (test code = 3034-6) 191 180-382 [facility] TylerBlood Thssnin8917-32-21 09:00:00* Test Item Value Reference Range Interpretation Comments Blood Culture (test code = 89819952) Growth detected. Culture wo rkup ordered. [facility] TylerCreatine Kinase EE8656-57-72 15:40:00* Test Item Value Reference Range Interpretation Comments Creatine Kinase MB (test code = 26109-4) 0.70 0-5.0 [facility] TylerTroponin L0428-78-99 15:40:00* Test Item Value Reference Range Interpretation Comments Troponin I (test code = UAM5871) 0.011 0-0.300 [facility] TylerCreatine Jpypdd6613-54-15 15:30:00* Test Item Value Reference Range Interpretation Comments Creatine Kinase (test code = 2157-6) 16 29-168 L [facility] TylerUrine NXY5521-16-29 08:56:00* Test Item Value Reference Range Interpretation Comments Urine WBC (test code = 5821-4) 0-5 0-5 [facility] TylerUrine FLD6675-79-99 08:56:00* Test Item Value Reference Range Interpretation Comments Urine RBC (test code = 19456-7) 0-5 0-5 [facility] TylerUrine Auobtemr3050-81-40 08:56:00* Test Item Value Reference Range Interpretation Comments Urine Bacteria (test code = 72109-2) RARE NONE [facility] TylerUrine Epithelial Mcvvp1596-51-00 08:56:00 * Test Item Value Reference Range Interpretation Comments Urine Epithelial Cells (test code = 52020-5) FEW NONE [facility] TylerUrine EUH5808-12-44 08:56:00* Test Item Value Reference Range Interpretation Comments Urine WBC (test code = 5821-4) 0-5 0-5 [facility] TylerUrine RMP6502-89-54 08:56:00* Test Item Value Reference Range Interpretation Comments Urine RBC (test code = 20424-2) 0-5 0-5 [facility] TylerUrine Qoleghaj4475-06-79 08:56:00* Test Item Value Reference Range Interpretation Comments Urine Bacteria (test code = 91429-8) RARE NONE [facility] TylerUrine Epithelial Hoydy0624-55-82 08:56:00 * Test Item Value Reference Range Interpretation Comments Urine Epithelial Cells (test code = 85258-4) FEW NONE [facility] TylerUrine Klybb2879-54-89 08:52:00* Test Item Value Reference Range Interpretation Comments Urine Color (test code = 5778-6) YELLOW YELLOW [facility] TylerUrine Vlvejyj1734-32-59 08:52:00* Test Item Value Reference Range Interpretation Comments Urine Clarity (test code = 50555-8) CLEAR CLEAR [facility] TylerUrine Specific Cicpbws1897-43-90 08:52:00 * Test Item Value Reference Range Interpretation Comments Urine Specific [place] (test code = 5811-5) 1.020 1.010-1.02 5 [facility] TylerUrine dO7604-67-87 08:52:00* Test Item Value Reference Range Interpretation Comments Urine pH (test code = 78065-4) 8 5-7 H [facility] TylerUrine Leukocyte Yzhattbx9859-77-87 08:52:00* Test Item Value Reference Range Interpretation Comments Urine Leukocyte Esterase (test code = 5799-2) NEGATIVE NEGATIVE [facility] TylerU[facility] Tlvnjqm5464-21-25 08:52:00* Test Item Value Reference Range Interpretation Comments Urine Nitrite (test code = 84804-0) NEGATIVE NEGATIVE [facility] TylerUrine Yddpxnp9124-44-90 08:52:00* Test Item Value Reference Range Interpretation Comments Urine Protein (test code = 5804-0) 3+ NEGATIVE H [facility] TylerUrine Glucose (UA)2017-07-11 08:52:00* Test Item Value Reference Range Interpretation Comments Urine Glucose (UA) (test code = 2349-9) 2+ NEGATIVE H [facility] TylerUrine Blwrkya5557-03-94 08:52:00* Test Item Value Reference Range Interpretation Comments Urine Ketones (test code = 70929-0) NEGATIVE NEGATIVE [facility] TylerUrine Xkydqcibdpaq5251-08-68 08:52:00* Test Item Value Reference Range Interpretation Comments Urine Urobilinogen (test code = 55300-7) 0.2 0.2-1 [facility] TylerU[facility] Jklmrbjmv1957-16-53 08:52:00* Test Item Value Reference Range Interpretation Comments Urine Bilirubin (test code = 1978-6) NEGATIVE NEGATIVE [facility] TylerUrine Slnyh3629-49-81 08:52:00* Test Item Value Reference Range Interpretation Comments Urine Blood (test code = 16576-0) NEGATIVE NEGATIVE [facility] TylerUrine Mtpeg7304-00-47 08:52:00* Test Item Value Reference Range Interpretation Comments Urine Color (test code = 5778-6) YELLOW YELLOW [facility] TylerU[facility] Idgdbvv5562-69-16 08:52:00* Test Item Value Reference Range Interpretation Comments Urine Clarity (test code = 65767-4) CLEAR CLEAR [facility] TylerUrine Specific Jbrvnjs5896-99-75 08:52:00 * Test Item Value Reference Range Interpretation Comments Urine Specific [place] (test code = 5811-5) 1.020 1.010-1.02 5 [facility] TylerUrine bF6928-83-60 08:52:00* Test Item Value Reference Range Interpretation Comments Urine pH (test code = 72819-0) 8 5-7 H [facility] TylerUrine Leukocyte Zvncdoqn2066-65-35 08:52:00* Test Item Value Reference Range Interpretation Comments Urine Leukocyte Esterase (test code = 5799-2) NEGATIVE NEGATIVE [facility] TylerU[facility] Aklelxd7628-60-70 08:52:00* Test Item Value Reference Range Interpretation Comments Urine Nitrite (test code = 03134-5) NEGATIVE NEGATIVE [facility] TylerU[facility] Zqxcunx3107-44-44 08:52:00* Test Item Value Reference Range Interpretation Comments Urine Protein (test code = 5804-0) 3+ NEGATIVE H [facility] TylerUrine Glucose (UA)2017-07-11 08:52:00* Test Item Value Reference Range Interpretation Comments Urine Glucose (UA) (test code = 2349-9) 2+ NEGATIVE H [facility] TylerUrine Vdksfri5388-49-01 08:52:00* Test Item Value Reference Range Interpretation Comments Urine Ketones (test code = 06809-1) NEGATIVE NEGATIVE [facility] Yxctynhsckxc8743-82-86 08:52:00* Test Item Value Reference Range Interpretation Comments Urine Urobilinogen (test code = 19811-2) 0.2 0.2-1 [facility] TylerUrine Ualfbmdwr2514-36-64 08:52:00* Test Item Value Reference Range Interpretation Comments Urine Bilirubin (test code = 1978-6) NEGATIVE NEGATIVE [facility] TylerUrine Showv9741-04-34 08:52:00* Test Item Value Reference Range Interpretation Comments Urine Blood (test code = 30699-1) NEGATIVE NEGATIVE [facility] TylerTotal Sblohjsrv8391-10-94 06:41:00* Test Item Value Reference Range Interpretation Comments Total Bilirubin (test code = 1974-2) 0.5 0.2-1.2 [facility] TylerAspartate Amino Transf (AST/SGOT) 2017-07-11 06:41:00* Test Item Value Reference Range Interpretation Comments Aspartate Amino Transf (AST/SGOT) (test code = Aspartate Amino Transf (AST/SGOT)) 7 5-34 [facility] TylerAlanine Aminotransferase (ALT/SGPT) 2017-07-11 06:41:00* Test Item Value Reference Range Interpretation Comments Alanine Aminotransferase (ALT/SGPT) (test code = 1742-6) 9 0-55 [facility] TylerTotal Qxjsnic0576-86-47 06:41:00* Test Item Value Reference Range Interpretation Comments Total Protein (test code = 2885-2) 5.3 6.5-8.1 L [facility] TylerAlbumin2018-06-01 06:41:00* Test Item Value Reference Range Interpretation Comments Albumin (test code = 1751-7) 2.7 3.5-5.0 L [facility] TylerGlobulin2018-06-01 06:41:00* Test Item Value Reference Range Interpretation Comments Globulin (test code = 63406-3) 2.6 2.3-3.5 [facility] TylerAlbumin/Globulin Bokzm5353-80-01 06:41:00 * Test Item Value Reference Range Interpretation Comments Albumin/Globulin Ratio (test code = 1759-0) 1.0 0.8-2.0 [facility] TylerAlkaline Ihazgejdadr7935-20-15 06:41:00* Test Item Value Reference Range Interpretation Comments Alkaline Phosphatase (test code = 6768-6) 59 40-150 [facility] TylerTriglycerides Ekoyp8124-51-02 06:41:00* Test Item Value Reference Range Interpretation Comments Triglycerides Level (test code = 2571-8) 133 0-149 [facility] TylerCholesterol Wtidu8800-08-92 06:41:00* Test Item Value Reference Range Interpretation Comments Cholesterol Level (test code = 2093-3) 188 0-199 Less than 200 mg/dL Low Lykq400 - 239 mg/dL Borderline Sjnn131 m g/dl and greater High Risk [facility] TylerLDL Qgfufejtjtd6415-65-97 06:41:00* Test Item Value Reference Range Interpretation Comments LDL Cholesterol (test code = 2089-1) 94 60-130 [facility] Kpnvsfyzybc4880-38-12 06:41:00* Test Item Value Reference Range Interpretation Comments HDL Cholesterol (test code = 2085-9) 67 40-60 H [facility] TylerCholesterol/HDL Kdmag0590-64-00 06:41:00 * Test Item Value Reference Range Interpretation Comments Cholesterol/HDL Ratio (test code = 9830-1) 2.8 3.0-3.6 L [facility] TylerTriglycerides Xmiek0006-38-48 06:41:00* Test Item Value Reference Range Interpretation Comments Triglycerides Level (test code = 2571-8) 133 0-149 [facility] TylerCholesterol Fepbe4843-86-91 06:41:00* Test Item Value Reference Range Interpretation Comments Cholesterol Level (test code = 2093-3) 188 0-199 Less than 200 mg/dL Low Oaif982 - 239 mg/dL Borderline Qjmm561 m g/dl and greater High Risk [facility] TylerLDL Jyanhtblfoq5062-42-11 06:41:00* Test Item Value Reference Range Interpretation Comments LDL Cholesterol (test code = 2089-1) 94 60-130 [facility] Jlsfcjolxgn0660-60-64 06:41:00* Test Item Value Reference Range Interpretation Comments HDL Cholesterol (test code = 2085-9) 67 40-60 H [facility] TylerCholesterol/HDL Hnczp3881-96-05 06:41:00 * Test Item Value Reference Range Interpretation Comments Cholesterol/HDL Ratio (test code = 9830-1) 2.8 3.0-3.6 L [facility] TylerProthrombin Vnff4602-51-47 02:45:00* Test Item Value Reference Range Interpretation Comments Prothrombin Time (test code = 5902-2) 13.2 11.9-14.5 [facility] TylerProthromb Time International Ratio 2017-07-11 02:45:00* Test Item Value Reference Range Interpretation Comments Prothromb Time International Ratio (test code = 6301-6) 1.08 Oral Anticoagulant Therapy INR Values:1. Low Intensity Therapy 1.5 - 2.02 . Moderate Intensity Therapy 2.0 - 3.03. High Intensity Therapy(1) 2.5 - 3. 54. High Intensity Therapy(2) 3.0 - 4.05. Panic Value INR > 5.0 [facility] TylerActivated Partial Thromboplast Time 2017-07-11 02:45:00* Test Item Value Reference Range Interpretation Comments Activated Partial Thromboplast Time (test code = 42035-3) 30.1 23.8-35.5 [facility] TylerProthrombin Ebev4904-57-83 02:45:00* Test Item Value Reference Range Interpretation Comments Prothrombin Time (test code = 5902-2) 13.2 11.9-14.5 [facility] TylerProthromb Time International Ratio 2017-07-11 02:45:00* Test Item Value Reference Range Interpretation Comments Prothromb Time International Ratio (test code = 6301-6) 1.08 Oral Anticoagulant Therapy INR Values:1. Low Intensity Therapy 1.5 - 2.02 . Moderate Intensity Therapy 2.0 - 3.03. High Intensity Therapy(1) 2.5 - 3. 54. High Intensity Therapy(2) 3.0 - 4.05. Panic Value INR > 5.0 [facility] TylerActivated Partial Thromboplast Time 2017-07-11 02:45:00* Test Item Value Reference Range Interpretation Comments Activated Partial Thromboplast Time (test code = 12329-5) 30.1 23.8-35.5 [facility] TylerB-Type Natriuretic Hxiasuv7781-41-06 21:58:00* Test Item Value Reference Range Interpretation Comments B-Type Natriuretic Peptide (test code = 81325-3) 1694.2 0-100 H [facility] TylerMagnesium Fucyl0804-76-04 21:57:00* Test Item Value Reference Range Interpretation Comments Magnesium Level (test code = 22800-5) 1.8 1.3-2.1 [facility] TylerMagnesium Qwoma4164-96-27 21:57:00* Test Item Value Reference Range Interpretation Comments Magnesium Level (test code = 04352-6) 1.8 1.3-2.1 [facility] TylerLactic Acid Zqmkg9885-74-78 21:50:00* Test Item Value Reference Range Interpretation Comments Lactic Acid Level (test code = Lactic Acid Level) 10.5 4.5- 19.8 [facility] TylerLactic Acid Hvafa2748-37-72 21:50:00* Test Item Value Reference Range Interpretation Comments Lactic Acid Level (test code = Lactic Acid Level) 10.5 4.5- 19.8 [facility] TylerArterial Blood [id number] 21:18:00* Test Item Value Reference Range Interpretation Comments Arterial Blood pH (test code = 2744-1) 7.47 7.31-7.41 H [facility] TylerArterial Blood Partial Pressure CO2 2017-07-10 21:18:00* Test Item Value Reference Range Interpretation Comments Arterial Blood Partial Pressure CO2 (test code = 2018-8) 42 41-51 [facility] TylerArterial Blood Partial Pressure O2 2017-07-10 21:18:00* Test Item Value Reference Range Interpretation Comments Arterial Blood Partial Pressure O2 (test code = 2018-8) 87 80-105 [facility] [id number] 21:18:00* Test Item Value Reference Range Interpretation Comments Arterial Blood HCO3 (test code = 1960-4) 31 23-28 H [facility] TylerArterial Blood Base Xfhhpi0712-54-45 21:18:00* Test Item Value Reference Range Interpretation Comments Arterial Blood Base Excess (test code = 1925-7) 7.0 -2-3 H [facility] TylerArterial Blood Oxygen Saturation 2017-07-10 21:18:00* Test Item Value Reference Range Interpretation Comments Arterial Blood Oxygen Saturation (test code = 2708-6) 97.0 95-98 [facility] TylerFiO22018-05-31 21:18:00* Test Item Value Reference Range Interpretation Comments FiO2 (test code = FiO2) 28 PT ON 2L NC99%/74HR/20RRStephen[facility] Hospitalial Blood pH 2017-07-10 21:18:00* Test Item Value Reference Range Interpretation Comments Arterial Blood pH (test code = 2744-1) 7.47 7.31-7.41 H [facility] TylerArterial Blood Partial Pressure CO2 2017-07-10 21:18:00* Test Item Value Reference Range Interpretation Comments Arterial Blood Partial Pressure CO2 (test code = 2018-) 42 41-51 [facility] TylerArterial Blood Partial Pressure O2 2017-07-10 21:18:00* Test Item Value Reference Range Interpretation Comments Arterial Blood Partial Pressure O2 (test code = 2018-) 87 80-105 [facility] TylerArterial Blood [id number] 21:18:00* Test Item Value Reference Range Interpretation Comments Arterial Blood HCO3 (test code = 1960-4) 31 23-28 H [facility] TylerArterial Blood Base Uzftof3869-27-84 21:18:00* Test Item Value Reference Range Interpretation Comments Arterial Blood Base Excess (test code = 1925-7) 7.0 -2-3 H [facility] TylerArterial Blood Oxygen Saturation 2017-07-10 21:18:00* Test Item Value Reference Range Interpretation Comments Arterial Blood Oxygen Saturation (test code = 2708-6) 97.0 95-98 [facility] TylerFiO22018-05-31 21:18:00* Test Item Value Reference Range Interpretation Comments FiO2 (test code = FiO2) 28 PT ON 2L NC99%/74HR/20RRCHRISTUS [facility] Hospital – TylerBedside Glucose 2017-06-26 16:00:00* Test Item Value Reference Range Interpretation Comments Bedside Glucose (test code = 74074-2) 249 70-120 H Meter ID: [id number] Mother Frances Hospital – TylerDifferential Total Cells Skzsdbo1445-92-51 07:47:00* Test Item Value Reference Range Interpretation Comments Differential Total Cells Counted (test code = Differen tial Total Cells Counted) 100 [facility] TylerNeutrophils % (Manual)2017-06-26 07:47:00 * Test Item Value Reference Range Interpretation Comments Neutrophils % (Manual) (test code = 19387-6) 90 40-74 H [facility] TylerLymphocytes % (Manual)2017-06-26 07:47:00 * Test Item Value Reference Range Interpretation Comments Lymphocytes % (Manual) (test code = 737-7) 10 19-48 L [facility] TylerPlatelet Sykvxpls6465-55-68 07:47:00* Test Item Value Reference Range Interpretation Comments Platelet Estimate (test code = 65237-3) ADEQUATE [facility] TylerPlatelet Morphology Grocjfi0690-11-24 07:47:00* Test Item Value Reference Range Interpretation Comments Platelet Morphology Comment (test code = 76548-3) NORMAL [facility] TylerHypochromasia2018-05-17 07:47:00* Test Item Value Reference Range Interpretation Comments Hypochromasia (test code = 728-6) SLIGHT [facility] TylerRed Cell Morphology Pnzmgds1268-65-86 07:47:00* Test Item Value Reference Range Interpretation Comments Red Cell Morphology Comment (test code = 6742-1) NORMAL [facility] TylerDifferential Total Cells Counted 2017-06-26 07:47:00* Test Item Value Reference Range Interpretation Comments Differential Total Cells Counted (test code = Differnandini tial Total Cells Counted) 100 [facility] TylerNeutrophils % (Manual)2017-06-26 07:47:00 * Test Item Value Reference Range Interpretation Comments Neutrophils % (Manual) (test code = 90567-5) 90 40-74 H [facility] TylerLymphocytes % (Manual)2017-06-26 07:47:00 * Test Item Value Reference Range Interpretation Comments Lymphocytes % (Manual) (test code = 737-7) 10 19-48 L [facility] TylerPlatelet Imngriqi3365-39-13 07:47:00* Test Item Value Reference Range Interpretation Comments Platelet Estimate (test code = 58701-9) ADEQUATE [facility] TylerPlatelet Morphology Lpqlirh4741-47-07 07:47:00* Test Item Value Reference Range Interpretation Comments Platelet Morphology Comment (test code = 86898-9) NORMAL [facility] TylerHypochromasia2018-05-17 07:47:00* Test Item Value Reference Range Interpretation Comments Hypochromasia (test code = 728-6) SLIGHT [facility] TylerRed Cell Morphology Szeqvvi7758-26-29 07:47:00* Test Item Value Reference Range Interpretation Comments Red Cell Morphology Comment (test code = 6742-1) NORMAL [facility] TylerDifferential Total Cells Counted 2017-06-26 07:47:00* Test Item Value Reference Range Interpretation Comments Differential Total Cells Counted (test code = Differen tial Total Cells Counted) 100 [facility] TylerNeutrophils % (Manual)2017-06-26 07:47:00 * Test Item Value Reference Range Interpretation Comments Neutrophils % (Manual) (test code = 61320-6) 90 40-74 H [facility] TylerLymphocytes % (Manual)2017-06-26 07:47:00 * Test Item Value Reference Range Interpretation Comments Lymphocytes % (Manual) (test code = 737-7) 10 19-48 L [facility] TylerPlatelet Qqpcmhij3717-23-89 07:47:00* Test Item Value Reference Range Interpretation Comments Platelet Estimate (test code = 72146-8) ADEQUATE [facility] TylerPlatelet Morphology Qkeyuly4982-31-83 07:47:00* Test Item Value Reference Range Interpretation Comments Platelet Morphology Comment (test code = 54578-8) NORMAL [facility] TylerHypochromasia2018-05-17 07:47:00* Test Item Value Reference Range Interpretation Comments Hypochromasia (test code = 728-6) SLIGHT [facility] TylerRed Cell Morphology Yhirpoz7027-68-08 07:47:00* Test Item Value Reference Range Interpretation Comments Red Cell Morphology Comment (test code = 6742-1) [facility]AL [facility] Liitv9605-22-21 07:27:00* Test Item Value Reference Range Interpretation Comments Sodium Level (test code = 2951-2) 136 136-145 [facility] TylerPotassium Dgjkr9999-65-75 07:27:00* Test Item Value Reference Range Interpretation Comments Potassium Level (test code = 2823-3) 4.4 3.5-5.1 [facility] TylerChloride Hkief2920-68-55 07:27:00* Test Item Value Reference Range Interpretation Comments Chloride Level (test code = 2075-0) 99 98-107 [facility] TylerCarbon Dioxide Xpisn8140-46-07 07:27:00* Test Item Value Reference Range Interpretation Comments Carbon Dioxide Level (test code = 2028-9) 26 22-29 [facility] TylerAnion Tpz2944-32-75 07:27:00* Test Item Value Reference Range Interpretation Comments Anion Gap (test code = 12075-5) 15.4 8-16 [facility] TylerBlood Urea Ymitxcjm3482-15-49 07:27:00* Test Item Value Reference Range Interpretation Comments Blood Urea Nitrogen (test code = 3094-0) 57 7-26 H [facility] TylerCreatinine2018-05-17 07:27:00* Test Item Value Reference Range Interpretation Comments Creatinine (test code = 2160-0) 5.05 0.57-1.11 H [facility] TylerBUN/Creatinine Mxveh4050-29-22 07:27:00* Test Item Value Reference Range Interpretation Comments BUN/Creatinine Ratio (test code = 3097-3) 11 6-25 [facility] TylerEstimat Glomerular Filtration Rate 2017-06-26 07:27:00* Test Item Value Reference Range Interpretation Comments Estimat Glomerular Filtration Rate (test code = 90548-5) 9 >60 L Ranges were taken from the National Kidney Disease Education Program and the [facility] literature.Reference ranges:60 or greater: Jayqcc55-06 ( for 3 consecutive months): Chronic kidney disease 15 or less: Kidney failureCHRISTUS Mother Frances Hospital – TylerGlucose Ngnvc3958-76-31 07:27:00* Test Item Value Reference Range Interpretation Comments Glucose Level (test code = SVQ8302) 176 74-118 H [facility] TylerCalcium Lapqk0575-79-17 07:27:00* Test Item Value Reference Range Interpretation Comments Calcium Level (test code = 86207-1) 8.6 8.4-10.2 [facility] TylerWhite Blood Eubog8110-12-30 06:53:00* Test Item Value Reference Range Interpretation Comments White Blood Count (test code = 6690-2) 6.14 4.8-10.8 [facility] TylerRed Blood Hkxva0021-94-85 06:53:00* Test Item Value Reference Range Interpretation Comments Red Blood Count (test code = 789-8) 2.86 3.6-5.1 L [facility] TylerHemoglobin2018-05-17 06:53:00* Test Item Value Reference Range Interpretation Comments Hemoglobin (test code = 98934-8) 8.8 12.0-16.0 L [facility] TylerHematocrit2018-05-17 06:53:00* Test Item Value Reference Range Interpretation Comments Hematocrit (test code = 4544-3) 26.3 34.2-44.1 L [facility] TylerMean Corpuscular Vuadxd7648-70-39 06:53:00* Test Item Value Reference Range Interpretation Comments Mean Corpuscular Volume (test code = 787-2) 92.0 81-99 [facility] TylerMean Corpuscular Qcqmfgdcml1625-68-42 06:53:00* Test Item Value Reference Range Interpretation Comments Mean Corpuscular Hemoglobin (test code = 785-6) 30.8 28-32 [facility] TylerMean Corpuscular Hemoglobin Concent 2017-06-26 06:53:00* Test Item Value Reference Range Interpretation Comments Mean Corpuscular Hemoglobin Concent (test code = 786-4) 33.5 31-35 [facility] TylerRed Cell Distribution Ggjws4727-52-49 06:53:00* Test Item Value Reference Range Interpretation Comments Red Cell Distribution Width (test code = 41789-4) 13.2 11.7 -14.4 [facility] TylerPlatelet Suprt5206-43-22 06:53:00* Test Item Value Reference Range Interpretation Comments Platelet Count (test code = 777-3) 239 140-360 [facility] TylerNeutrophils (%) (Auto)2017-06-26 06:53:00 * Test Item Value Reference Range Interpretation Comments Neutrophils (%) (Auto) (test code = 04474-4) 85.6 38.7-80.0 H [facility] TylerLymphocytes (%) (Auto)2017-06-26 06:53:00 * Test Item Value Reference Range Interpretation Comments Lymphocytes (%) (Auto) (test code = 736-9) 9.4 18.0-39.1 L [facility] TylerMonocytes (%) (Auto)2017-06-26 06:53:00* Test Item Value Reference Range Interpretation Comments Monocytes (%) (Auto) (test code = 5905-5) 4.2 4.4-11.3 L [facility] TylerEosinophils (%) (Auto)2017-06-26 06:53:00 * Test Item Value Reference Range Interpretation Comments Eosinophils (%) (Auto) (test code = 713-8) 0.0 0.0-6.0 [facility] TylerBasophils (%) (Auto)2017-06-26 06:53:00* Test Item Value Reference Range Interpretation Comments Basophils (%) (Auto) (test code = 706-2) 0.0 0.0-1.0 [facility] TylerIM GRANULOCYTES %2017-06-26 06:53:00* Test Item Value Reference Range Interpretation Comments IM GRANULOCYTES % (test code = IM GRANULOCYTES %) 0.8 0.0- 1.0 [facility] TylerNeutrophils # (Auto)2017-06-26 06:53:00* Test Item Value Reference Range Interpretation Comments Neutrophils # (Auto) (test code = 751-8) 5.3 2.1-6.9 [facility] TylerLymphocytes # (Auto)2017-06-26 06:53:00* Test Item Value Reference Range Interpretation Comments Lymphocytes # (Auto) (test code = 69677-8) 0.6 1.0-3.2 L [facility] TylerMonocytes # (Auto)2017-06-26 06:53:00* Test Item Value Reference Range Interpretation Comments Monocytes # (Auto) (test code = 742-7) 0.3 0.2-0.8 [facility] TylerEosinophils # (Auto)2017-06-26 06:53:00* Test Item Value Reference Range Interpretation Comments Eosinophils # (Auto) (test code = 711-2) 0.0 0.0-0.4 [facility] TylerBasophils # (Auto)2017-06-26 06:53:00* Test Item Value Reference Range Interpretation Comments Basophils # (Auto) (test code = 704-7) 0.0 0.0-0.1 [facility] TylerAbsolute Immature Granulocyte (auto 2017-06-26 06:53:00* Test Item Value Reference Range Interpretation Comments Absolute Immature Granulocyte (auto (carine t code = Absolute Immature Granulocyte (auto) 0.05 0-0.1 [facility] TylerCreatine Kinase PC0264-12-30 15:27:00* Test Item Value Reference Range Interpretation Comments Creatine Kinase MB (test code = 64509-8) 1.90 0-5.0 [facility] TylerTroponin [id number] 15:27:00* Test Item Value Reference Range Interpretation Comments Troponin I (test code = OTP9084) 0.168 0-0.300 [facility] TylerCreatine Zfusls4211-61-81 15:20:00* Test Item Value Reference Range Interpretation Comments Creatine Kinase (test code = 2157-6) 20 29-168 L [facility] TylerB-Type Natriuretic Ohsrult7258-65-99 15:35:00* Test Item Value Reference Range Interpretation Comments B-Type Natriuretic Peptide (test code = 72291-2) 1512.7 0-100 H [facility] TylerPhosphorus Oyzhb4553-51-38 15:24:00* Test Item Value Reference Range Interpretation Comments Phosphorus Level (test code = MGZ5834) 2.6 2.3-4.7 [facility] TylerMagnesium Jybab8896-08-39 15:24:00* Test Item Value Reference Range Interpretation Comments Magnesium Level (test code = 08090-3) 1.7 1.3-2.1 [facility] TylerTotal Pziwbzstx1927-50-21 15:24:00* Test Item Value Reference Range Interpretation Comments Total Bilirubin (test code = 1975-2) 0.7 0.2-1.2 [facility] TylerAspartate Amino Transf (AST/SGOT) 2017-06-24 15:24:00* Test Item Value Reference Range Interpretation Comments Aspartate Amino Transf (AST/SGOT) (test code = Aspartate Amino Transf (AST/SGOT)) 8 5-34 [facility] TylerAlanine Aminotransferase (ALT/SGPT) 2017-06-24 15:24:00* Test Item Value Reference Range Interpretation Comments Alanine Aminotransferase (ALT/SGPT) (test code = 1742-6) 6 0-55 [facility] TylerTotal Hlytdnn0192-78-65 15:24:00* Test Item Value Reference Range Interpretation Comments Total Protein (test code = 2885-2) 6.6 6.5-8.1 [facility] TylerAlbumin2018-05-15 15:24:00* Test Item Value Reference Range Interpretation Comments Albumin (test code = 1751-7) 3.3 3.5-5.0 L [facility] TylerGlobulin2018-05-15 15:24:00* Test Item Value Reference Range Interpretation Comments Globulin (test code = 56266-5) 3.3 2.3-3.5 [facility] TylerAlbumin/Globulin Ahuso6135-60-67 15:24:00 * Test Item Value Reference Range Interpretation Comments Albumin/Globulin Ratio (test code = 1759-0) 1.0 0.8-2.0 [facility] TylerAlkaline Yykjsgolqds6123-41-62 15:24:00* Test Item Value Reference Range Interpretation Comments Alkaline Phosphatase (test code = 6768-6) 65 40-150 [facility] TylerPhosphorus Agvsg0550-96-34 15:24:00* Test Item Value Reference Range Interpretation Comments Phosphorus Level (test code = IIY5343) 2.6 2.3-4.7 [facility] TylerPhosphorus Yewlu0434-81-78 15:24:00* Test Item Value Reference Range Interpretation Comments Phosphorus Level (test code = AGO0708) 2.6 2.3-4.7 [facility] TylerBedside Fipfhvu0568-08-35 17:41:00* Test Item Value Reference Range Interpretation Comments Bedside Glucose (test code = 64779-8) 176 70-120 H Meter ID: [id number] Arts Hospitalodium Level 2017-04-28 07:06:00* Test Item Value Reference Range Interpretation Comments Sodium Level (test code = 2951-2) 133 136-145 L [facility] TylerPotassium Uzmyq4519-13-59 07:06:00* Test Item Value Reference Range Interpretation Comments Potassium Level (test code = 2823-3) 4.1 3.5-5.1 [facility] TylerChloride Huzgi8199-67-57 07:06:00* Test Item Value Reference Range Interpretation Comments Chloride Level (test code = 2075-0) 97 98-107 L [facility] TylerCarbon Dioxide Lxxhe8544-43-94 07:06:00* Test Item Value Reference Range Interpretation Comments Carbon Dioxide Level (test code = 2028-9) 25 22-29 [facility] TylerAnion Yzs3937-28-61 07:06:00* Test Item Value Reference Range Interpretation Comments Anion Gap (test code = 13687-3) 15.1 8-16 [facility] TylerBlood Urea Svqqhcms7014-64-94 07:06:00* Test Item Value Reference Range Interpretation Comments Blood Urea Nitrogen (test code = 3094-0) 34 7-26 H [facility] TylerCreatinine2018-03-19 07:06:00* Test Item Value Reference Range Interpretation Comments Creatinine (test code = 2160-0) 6.83 0.57-1.11 H [facility] TylerBUN/Creatinine Zhdph8815-57-38 07:06:00* Test Item Value Reference Range Interpretation Comments BUN/Creatinine Ratio (test code = 3097-3) 5 6-25 L [facility] TylerEstimat Glomerular Filtration Rate 2017-04-28 07:06:00* Test Item Value Reference Range Interpretation Comments Estimat Glomerular Filtration Rate (test code = 87124-6) 6 >60 L Ranges were taken from the National Kidney Disease Education Program and the [facility] literature.Reference ranges:60 or greater: Yxiqkn10-11 ( for 3 consecutive months): Chronic kidney disease 15 or less: Kidney failureCHRISTUS Mother Frances Hospital – TylerGlucose Nyqph3247-97-40 07:06:00* Test Item Value Reference Range Interpretation Comments Glucose Level (test code = TDK5427) 151 74-118 H [facility] TylerCalcium Uscap6066-92-01 07:06:00* Test Item Value Reference Range Interpretation Comments Calcium Level (test code = 40341-4) 9.1 8.4-10.2 [facility] TylerWhite Blood Mbxjh6010-56-71 06:39:00* Test Item Value Reference Range Interpretation Comments White Blood Count (test code = 6690-2) 4.96 4.8-10.8 [facility] TylerRed Blood Mgsst4862-45-31 06:39:00* Test Item Value Reference Range Interpretation Comments Red Blood Count (test code = 789-8) 3.06 3.6-5.1 L [facility] TylerHemoglobin2018-03-19 06:39:00* Test Item Value Reference Range Interpretation Comments Hemoglobin (test code = 98316-8) 9.8 12.0-16.0 L [facility] TylerHematocrit2018-03-19 06:39:00* Test Item Value Reference Range Interpretation Comments Hematocrit (test code = 4544-3) 29.3 34.2-44.1 L [facility] TylerMean Corpuscular Wvckaj8530-07-72 06:39:00* Test Item Value Reference Range Interpretation Comments Mean Corpuscular Volume (test code = 787-2) 95.8 81-99 [facility] TylerMean Corpuscular Gxfkbuxaoj6901-18-35 06:39:00* Test Item Value Reference Range Interpretation Comments Mean Corpuscular Hemoglobin (test code = 785-6) 32.0 28-32 [facility] TylerMean Corpuscular Hemoglobin Concent 2017-04-28 06:39:00* Test Item Value Reference Range Interpretation Comments Mean Corpuscular Hemoglobin Concent (test code = 786-4) 33.4 31-35 [facility] TylerRed Cell Distribution Mgjzr7254-61-16 06:39:00* Test Item Value Reference Range Interpretation Comments Red Cell Distribution Width (test code = 40960-4) 13.2 11.7 -14.4 [facility] TylerPlatelet Uyfla9071-31-87 06:39:00* Test Item Value Reference Range Interpretation Comments Platelet Count (test code = 777-3) 320 140-360 [facility] TylerNeutrophils (%) (Auto)2017-04-28 06:39:00 * Test Item Value Reference Range Interpretation Comments Neutrophils (%) (Auto) (test code = 01210-8) 56.7 38.7-80.0 [facility] TylerLymphocytes (%) (Auto)2017-04-28 06:39:00 * Test Item Value Reference Range Interpretation Comments Lymphocytes (%) (Auto) (test code = 736-9) 22.4 18.0-39.1 [facility] TylerMonocytes (%) (Auto)2017-04-28 06:39:00* Test Item Value Reference Range Interpretation Comments Monocytes (%) (Auto) (test code = 5905-5) 14.9 4.4-11.3 H [facility] TylerEosinophils (%) (Auto)2017-04-28 06:39:00 * Test Item Value Reference Range Interpretation Comments Eosinophils (%) (Auto) (test code = 713-8) 5.0 0.0-6.0 [facility] TylerBasophils (%) (Auto)2017-04-28 06:39:00* Test Item Value Reference Range Interpretation Comments Basophils (%) (Auto) (test code = 706-2) 0.8 0.0-1.0 [facility] TylerIM GRANULOCYTES %2017-04-28 06:39:00* Test Item Value Reference Range Interpretation Comments IM GRANULOCYTES % (test code = IM GRANULOCYTES %) 0.2 0.0- 1.0 [facility] [facility] TylerNeutrophils # (Auto)2017-04-28 06:39:00* Test Item Value Reference Range Interpretation Comments Neutrophils # (Auto) (test code = 751-8) 2.8 2.1-6.9 [facility] TylerLymphocytes # (Auto)2017-04-28 06:39:00* Test Item Value Reference Range Interpretation Comments Lymphocytes # (Auto) (test code = 81796-0) 1.1 1.0-3.2 [facility] TylerMonocytes # (Auto)2017-04-28 06:39:00* Test Item Value Reference Range Interpretation Comments Monocytes # (Auto) (test code = 742-7) 0.7 0.2-0.8 [facility] TylerEosinophils # (Auto)2017-04-28 06:39:00* Test Item Value Reference Range Interpretation Comments Eosinophils # (Auto) (test code = 711-2) 0.3 0.0-0.4 [facility] TylerBasophils # (Auto)2017-04-28 06:39:00* Test Item Value Reference Range Interpretation Comments Basophils # (Auto) (test code = 704-7) 0.0 0.0-0.1 [facility] TylerAbsolute Immature Granulocyte (auto 2017-04-28 06:39:00* Test Item Value Reference Range Interpretation Comments Absolute Immature Granulocyte (auto (carine t code = Absolute Immature Granulocyte (auto) 0.01 0-0.1 [facility] TylerTotal Mvmzibigh3007-92-46 09:59:00* Test Item Value Reference Range Interpretation Comments Total Bilirubin (test code = 1975-2) 0.4 0.2-1.2 [facility] TylerAspartate Amino Transf (AST/SGOT) 2017-04-26 09:59:00* Test Item Value Reference Range Interpretation Comments Aspartate Amino Transf (AST/SGOT) (test code = Aspartate Amino Transf (AST/SGOT)) 13 5-34 [facility] TylerAlanine Aminotransferase (ALT/SGPT) 2017-04-26 09:59:00* Test Item Value Reference Range Interpretation Comments Alanine Aminotransferase (ALT/SGPT) (test code = 1742-6) 7 0-55 [facility] TylerTotal Uyexczx0435-90-42 09:59:00* Test Item Value Reference Range Interpretation Comments Total Protein (test code = 2885-2) 6.1 6.5-8.1 L [facility] TylerAlbumin2018-03-17 09:59:00* Test Item Value Reference Range Interpretation Comments Albumin (test code = 1751-7) 2.5 3.5-5.0 L [facility] TylerGlobulin2018-03-17 09:59:00* Test Item Value Reference Range Interpretation Comments Globulin (test code = 28833-4) 3.6 2.3-3.5 H [facility] TylerAlbumin/Globulin Eyknj3681-29-75 09:59:00 * Test Item Value Reference Range Interpretation Comments Albumin/Globulin Ratio (test code = 1759-0) 0.7 0.8-2.0 L [facility] TylerAlkaline Vomaosorcfc9751-87-65 09:59:00* Test Item Value Reference Range Interpretation Comments Alkaline Phosphatase (test code = 6768-6) 69 40-150 [facility] TylerArterial Blood nC5973-15-45 02:08:00* Test Item Value Reference Range Interpretation Comments Arterial Blood pH (test code = 2744-1) 7.42 7.31-7.41 H [facility] TylerArterial Blood Partial Pressure CO2 2017-04-26 02:08:00* Test Item Value Reference Range Interpretation Comments Arterial Blood Partial Pressure CO2 (test code = 2018-09) 44 41-51 [facility] TylerArterial Blood Partial Pressure O2 2017-04-26 02:08:00* Test Item Value Reference Range Interpretation Comments Arterial Blood Partial Pressure O2 (test code = 2018-) 56 80-105 L [facility] TylerArterial Blood LLI41281-10-64 02:08:00* Test Item Value Reference Range Interpretation Comments Arterial Blood HCO3 (test code = 1960-4) 29 23-28 H [facility] TylerArterial Blood Base Ddygir0795-86-70 02:08:00* Test Item Value Reference Range Interpretation Comments Arterial Blood Base Excess (test code = 1925-7) 4.0 -2-3 H [facility] TylerArterial Blood Oxygen Saturation 2017-04-26 02:08:00* Test Item Value Reference Range Interpretation Comments Arterial Blood Oxygen Saturation (test code = 2708-6) 89.0 95-98 L Pt on 3L [place].[facility] TylerArterial Blood wU8038-97-02 02:08:00* Test Item Value Reference Range Interpretation Comments Arterial Blood pH (test code = 2744-1) 7.42 7.31-7.41 H [facility] TylerArterial Blood Partial Pressure CO2 2017-04-26 02:08:00* Test Item Value Reference Range Interpretation Comments Arterial Blood Partial Pressure CO2 (test code = 2018-8) 44 41-51 [facility] TylerArterial Blood Partial Pressure O2 2017-04-26 02:08:00* Test Item Value Reference Range Interpretation Comments Arterial Blood Partial Pressure O2 (test code = 2018-8) 56 80-105 L [facility] TylerArterial Blood LST81609-91-44 02:08:00* Test Item Value Reference Range Interpretation Comments Arterial Blood HCO3 (test code = 1960-4) 29 23-28 H [facility] TylerArterial Blood Base Rnxngu5465-25-35 02:08:00* Test Item Value Reference Range Interpretation Comments Arterial Blood Base Excess (test code = 1925-7) 4.0 -2-3 H [facility] TylerArterial Blood Oxygen Saturation 2017-04-26 02:08:00* Test Item Value Reference Range Interpretation Comments Arterial Blood Oxygen Saturation (test code = 2708-6) 89.0 95-98 L Pt on 3L [place].[facility] TylerB-Type Natriuretic Peptide 2017-04-25 10:18:00* Test Item Value Reference Range Interpretation Comments B-Type Natriuretic Peptide (test code = 42488-7) 892.0 0-100 H [facility] TylerHepico [facility] B Surface Antibody, Quant 2017-04-25 08:37:00* Test Item Value Reference Range Interpretation Comments Hepatitis B Surface Antibody, Quant (test code = 5194-6) -3.1 Immunity>9.9 L Status of Immunity Anti-HBs Level Inconsistent with Immunity 0.0 - 9.9Consistent with Immunity >9.9[facility] Core Total Lyzkeqtj5166-54-28 08:37:00* Test Item Value Reference Range Interpretation Comments Hepatitis B Core Total Antibody (test code = 64535-9) Negative Negative Performed at: [employer] [id number] Director: Edmond Mcneil MD, Phone: [phone] Medical Center B Surface Nhrmwey1623-63-88 08:37:00* Test Item Value Reference Range Interpretation Comments Hepatitis B Surface Antigen (test code = 5196-1) Negative Negat henry [facility] B Surface Antibody, Quant 2017-04-25 08:37:00* Test Item Value Reference Range Interpretation Comments Hepatitis B Surface Antibody, Quant (test code = 5194-6) -3.1 Immunity>9.9 L Status of Immunity Anti-HBs Level Inconsistent with Immunity 0.0 - 9.9Consistent with Immunity >9.9[facility] B Core Total Ocydrehy8527-21-80 08:37:00* Test Item Value Reference Range Interpretation Comments Hepatitis B Core Total Antibody (test code = 24274-8) Negative Negative Performed at: [facility] [address] [id number] Director: Edmond Mcneil MD, Phone: [phone] Medical Center B Surface Ycnrodp5123-49-64 08:37:00* Test Item Value Reference Range Interpretation Comments Hepatitis B Surface Antigen (test code = 5196-1) Negative Negat henry [facility]2017-[facility] 05:21:00* Test Item Value Reference Range Interpretation Comments Aldosterone (test code = 1763-2) 1.2 0.0-30.0 This test was developed and its performance characteristicsdetermined by [employer] . It has not been cleared orapproved by the Food and Drug Administration.Perform ed at: [address] [id number] Dir zack: Tone Sheets MD, Phone: [phone] Mother [facility] – TylerAldosterone2017-10-13 05:21:00* Test Item Value Reference Range Interpretation Comments Aldosterone (test code = 1763-2) 1.2 0.0-30.0 This test was developed and its performance characteristicsdetermined by [employer] . It has not been cleared orapproved by the Food and Drug Administration.Perform ed at: [address] [id number] Dir zack: Tone Sheets MD, Phone: [phone] Mother Frances Hospital – TylerAldosterone2017-10-13 05:21:00* Test Item Value Reference Range Interpretation Comments Aldosterone (test code = 1763-2) 1.2 0.0-30.0 This test was developed and its performance characteristicsdetermined by [employer] . It has not been cleared orapproved by the Food and Drug Administration.Perform ed at: [address] [id number] Dir zack: Tone Sheets MD, Phone: [phone] Mother Frances [facility] – TylerPlasma Kekquyucxiyz5746-87-02 07:51:00* Test Item Value Reference Range Interpretation Comments Plasma Metanephrine (test code = 24974-9) 14 0-62 Concentrations of Normetanephrine between 146 and 487pg/mL, and Metanephrine bet ween 63 and 255 pg/mL areconsidered indeterminate. Follow-up biochemical testing isrecommended when patient levels fall within thisindeterminate range. These te sts include repeat testing ofplasma/urinary fractionated metanephrines and plasm acatecholamines.Performed at: [address] [id number] Director: Tone Sheets MD, Phone: [phone] Mother Frances Hospital – TylerPlasma Qxwfnbeearcxkop1215-18-39 07:51:00* Test Item Value Reference Range Interpretation Comments Plasma Normetanephrine (test code = 2669-0) 61 0-145 [facility] TylerPlasma Ogvakmfcwgux4642-68-31 07:51:00* Test Item Value Reference Range Interpretation Comments Plasma Metanephrine (test code = 23941-9) 14 0-62 Concentrations of Normetanephrine between 146 and 487pg/mL, and Metanephrine bet ween 63 and 255 pg/mL areconsidered indeterminate. Follow-up biochemical testing isrecommended when patient levels fall within thisindeterminate range. These te sts include repeat testing ofplasma/urinary fractionated metanephrines and plasm acatecholamines.Performed at: [address] [id number] Director: Tone Sheets MD, Phone: [phone] Mother Frances Hospital – TylerPlasma Erufhuosncpycay0982-01-23 07:51:00* Test Item Value Reference Range Interpretation Comments Plasma Normetanephrine (test code = 2669-0) 61 0-145 [facility] TylerPlasma Kmvctnujutzy7690-96-03 07:51:00* Test Item Value Reference Range Interpretation Comments Plasma Metanephrine (test code = 62263-6) 14 0-62 Concentrations of Normetanephrine between 146 and 487pg/mL, and Metanephrine bet ween 63 and 255 pg/mL areconsidered indeterminate. Follow-up biochemical testing isrecommended when patient levels fall within thisindeterminate range. These te sts include repeat testing ofplasma/urinary fractionated metanephrines and plasm acatecholamines.Performed at: [employer] [address] [id number] Director: Tone Sheets MD, Phone: [phone] [facility] HospitalPlasma Cozsvecelgsahxu2669-00-65 07:51:00* Test Item Value Reference Range Interpretation Comments Plasma Normetanephrine (test code = 2669-0) 61 0-145 [facility] Tzzgtnjep3104-16-91 15:06:00* Test Item Value Reference Range Interpretation Comments Free Thyroxine (test code = 3024-7) 0.83 0.8-1.8 [facility] TylerThyroid Stimulating Hormone (TSH) 2016-11-20 15:06:00* Test Item Value Reference Range Interpretation Comments Thyroid Stimulating Hormone (TSH) (test code = 92261-9) 1.354 0.350-4.940 [facility] Sgxmzsvwm4378-35-25 15:06:00* Test Item Value Reference Range Interpretation Comments Free Thyroxine (test code = 3024-7) 0.83 0.8-1.8 [facility] TylerThyroid Stimulating Hormone (TSH) 2016-11-20 15:06:00* Test Item Value Reference Range Interpretation Comments Thyroid Stimulating Hormone (TSH) (test code = 30122-1) 1.354 0.350-4.940 [facility] Eplxkkypc1177-04-72 15:06:00* Test Item Value Reference Range Interpretation Comments Free Thyroxine (test code = 3024-7) 0.83 0.8-1.8 [facility] TylerThyroid Stimulating Hormone (TSH) 2016-11-20 15:06:00* Test Item Value Reference Range Interpretation Comments Thyroid Stimulating Hormone (TSH) (test code = 81695-2) 1.354 0.350-4.940 [facility] TylerHemoglobin A1c Opmmqkw0015-15-22 14:38:00 * Test Item Value Reference Range Interpretation Comments Hemoglobin A1c Percent (test code = Hemoglobin A1c Percent) 6.2 4.0-7.0 [facility] TylerHemoglobin A1c Wrmgnjt0751-67-45 14:38:00 * Test Item Value Reference Range Interpretation Comments Hemoglobin A1c Percent (test code = Hemoglobin A1c Percent) 6.2 4.0-7.0 [facility] TylerHemoglobin A1c Lrbxkgo7017-39-95 14:38:00 * Test Item Value Reference Range Interpretation Comments Hemoglobin A1c Percent (test code = Hemoglobin A1c Percent) 6.2 4.0-7.0 [facility] TylerPhosphorus Grmjz3820-06-28 06:40:00* Test Item Value Reference Range Interpretation Comments Phosphorus Level (test code = BPF4223) 4.0 2.3-4.7 [facility] TylerMagnesium Egzak1884-08-87 06:40:00* Test Item Value Reference Range Interpretation Comments Magnesium Level (test code = 87150-1) 1.8 1.3-2.1 [facility] TylerHepatiregionalone [facility] center Be Enpkfdiy2719-63-97 21:11:00 * Test Item Value Reference Range Interpretation Comments Hepatitis Be Antibody (test code = 70143-5) Negative Negative Performed at: [place] [address] [employer]fficiency Expert: Tone Sheets MD, Phone: [phone] Mother Frances Hospital – TylerHepico [facility] Be Pqvdxtkx7761-18-85 21:11:00* Test Item Value Reference Range Interpretation Comments Hepatitis Be Antibody (test code = 00603-2) Negative Negative Performed at: [place] [address] [employer] Expert: Tone Sheets MD, Phone: [phone] Mother Frances Hospital – TylerHepico [facility] Be Wflxlohy8760-69-26 21:11:00* Test Item Value Reference Range Interpretation Comments Hepatitis Be Antibody (test code = 59887-1) Negative Negative Performed at: [place] [address] [employer] Expert: Tone Sheets MD, Phone: [phone] [place], [place] [address]Urine Collection Ppfs2675-96-88 18:08:00* Test Item Value Reference Range Interpretation Comments Urine Collection Time (test code = 68292-0) 24 [facility] TylerUrine Total Myqhty6528-46-39 18:08:00* Test Item Value Reference Range Interpretation Comments Urine Total Volume (test code = 11393-9) 2150 800-2000 H [facility] TylerUrine Creatinine 24 Bggw6690-37-75 18:08:00* Test Item Value Reference Range Interpretation Comments Urine Creatinine 24 Hour (test code = 2162-6) 241 561-9490 [facility] TylerCreatinine Jftadcsti5382-84-15 18:08:00* Test Item Value Reference Range Interpretation Comments Creatinine Clearance (test code = 25453-6) 11 88-128 L [facility] TylerUrine Collection Ewql2174-48-72 18:08:00 * Test Item Value Reference Range Interpretation Comments Urine Collection Time (test code = 55043-5) 24 [facility] TylerUrine Total Ejfabh6661-38-29 18:08:00* Test Item Value Reference Range Interpretation Comments Urine Total Volume (test code = 79811-9) 2150 800-2000 H [facility] TylerUrine Creatinine 24 Rhvp8833-71-05 18:08:00* Test Item Value Reference Range Interpretation Comments Urine Creatinine 24 Hour (test code = 2162-6) [phone] [facility] TylerCreatinine Laqukrsut3579-59-03 18:08:00* Test Item Value Reference Range Interpretation Comments Creatinine Clearance (test code = 49264-8) 11 88-128 L [facility] TylerUrine Collection Rezu6153-39-74 18:08:00 * Test Item Value Reference Range Interpretation Comments Urine Collection Time (test code = 75107-1) 24 [facility] TylerUrine Total Yvdlep6190-21-36 18:08:00* Test Item Value Reference Range Interpretation Comments Urine Total Volume (test code = 80878-2) 2150 800-2000 H [facility] TylerUrine Creatinine 24 Vswd7612-22-86 18:08:00* Test Item Value Reference Range Interpretation Comments Urine Creatinine 24 Hour (test code = 2162-6) 352 514-7934 [facility] TylerCreatinine Hjyueqdos6289-70-00 18:08:00* Test Item Value Reference Range Interpretation Comments Creatinine Clearance (test code = 59872-4) 11 88-128 L [facility] TylerUrine Zglrgxndwm3464-89-24 18:05:00* Test Item Value Reference Range Interpretation Comments Urine Creatinine (test code = 2161-8) 29.57 47-110 L [facility] TylerUrine Finbzjxhdr1052-94-33 18:05:00* Test Item Value Reference Range Interpretation Comments Urine Creatinine (test code = 2161-8) 29.57 47-110 L [facility] TylerUrine Xnyqxfemrx1117-67-01 18:05:00* Test Item Value Reference Range Interpretation Comments Urine Creatinine (test code = 2161-8) 29.57 47-110 L [facility] Be Pyfzidn8533-50-79 05:38:00* Test Item Value Reference Range Interpretation Comments Hepatitis Be Antigen (test code = 85068-4) Negative Negative [facility] Uwkjdbm6510-36-17 05:38:00* Test Item Value Reference Range Interpretation Comments Hepatitis Be Antigen (test code = 35434-1) Negative Negative [facility] Tclerlr3379-71-24 05:38:00* Test Item Value Reference Range Interpretation Comments Hepatitis Be Antigen (test code = 53970-5) Negative Negative [facility] TylerCortisol AM Lvdesa8861-89-07 21:52:00* Test Item Value Reference Range Interpretation Comments Cortisol AM Sample (test code = 9813-7) 6.7 6.2-19.4 No "Time Drawn" on tube.Performed at: [address] [id number] Director: Edmond Mcneil MD, Phone: [phone] Mother Frances Hospital – TylerCortisol AM Cbzzfq6003-38-27 21:52:00* Test Item Value Reference Range Interpretation Comments Cortisol AM Sample (test code = 9813-7) 6.7 6.2-19.4 No "Time Drawn" on tube.Performed at: [facility] [id number] Director: Edmond Mcneil MD, Phone: [phone] Mother Frances Hospital – TylerCortisol AM Ezdimt7536-44-79 21:52:00* Test Item Value Reference Range Interpretation Comments Cortisol AM Sample (test code = 9813-7) 6.7 6.2-19.4 No "Time Drawn" on tube.Performed at: - [facility] [place], [place] [id number] Director: Edmond Mcneil MD, Phone: [phone] Mother Frances Hospital – TylerTriglycerides Pvtfe2498-78-01 06:59:00* Test Item Value Reference Range Interpretation Comments Triglycerides Level (test code = 2571-8) 157 0-149 H [facility] TylerCholesterol Ughuz9701-32-14 06:59:00* Test Item Value Reference Range Interpretation Comments Cholesterol Level (test code = 2093-3) 234 0-199 H Less than 200 mg/dL Low Eity753 - 239 mg/dL Borderline Vojx520 m g/dl and greater High Risk [facility] TylerLDL Ickowktuywd2904-01-00 06:59:00* Test Item Value Reference Range Interpretation Comments LDL Cholesterol (test code = 65290-0) 149 60-130 H [facility] TylerHDL Slplcsdrmrq1190-07-89 06:59:00* Test Item Value Reference Range Interpretation Comments HDL Cholesterol (test code = 2085-9) 54 40-60 [facility] TylerCholesterol/HDL Pzuwh4495-18-33 06:59:00 * Test Item Value Reference Range Interpretation Comments Cholesterol/HDL Ratio (test code = 9830-1) 4.3 3.0-3.6 H [facility] TylerTriglycerides Brtyt5666-82-30 06:59:00* Test Item Value Reference Range Interpretation Comments Triglycerides Level (test code = 2571-8) 157 0-149 H [facility] TylerCholesterol Lonak8999-49-61 06:59:00* Test Item Value Reference Range Interpretation Comments Cholesterol Level (test code = 2093-3) 234 0-199 H Less than 200 mg/dL Low Nuzb911 - 239 mg/dL Borderline Fgii110 m g/dl and greater High Risk [facility] TylerLDL Hyzgmvzghmn8873-47-24 06:59:00* Test Item Value Reference Range Interpretation Comments LDL Cholesterol (test code = 17883-0) 149 60-130 H [facility] TylerHDL Rkgkakyfqty7683-69-73 06:59:00* Test Item Value Reference Range Interpretation Comments HDL Cholesterol (test code = 2085-9) 54 40-60 [facility] TylerCholesterol/HDL Nkxwj8973-17-04 06:59:00 * Test Item Value Reference Range Interpretation Comments Cholesterol/HDL Ratio (test code = 9830-1) 4.3 3.0-3.6 [facility] Hqvht6723-16-11 19:00:00* Test Item Value Reference Range Interpretation Comments Stool Occult Blood (test code = 2335-8) POSITIVE NEGATIVE H [facility] Occult Dmvcz7787-75-37 19:00:00* Test Item Value Reference Range Interpretation Comments Stool Occult Blood (test code = 2335-8) POSITIVE NEGATIVE H [facility] TylerCreatine Kinase RP3163-74-31 23:24:00* Test Item Value Reference Range Interpretation Comments Creatine Kinase MB (test code = 12642-9) 6.10 0.00-5.00 H [facility] TylerCreatine Iygmvi8022-90-04 23:00:00* Test Item Value Reference Range Interpretation Comments Creatine Kinase (test code = 2157-6) 102 29-168 [facility] TylerTroponin S4010-94-65 22:56:00* Test Item Value Reference Range Interpretation Comments Troponin I (test code = VZJ3159) 0.468 0-0.300 H [facility] TylerUrine Ahbyexgitne3897-73-52 22:51:00* Test Item Value Reference Range Interpretation Comments Urine Eosinophils (test code = 16721-2) NONE SEEN NONE SEEN [facility] TylerUrine Bqpkarxgmno3091-96-67 22:51:00* Test Item Value Reference Range Interpretation Comments Urine Eosinophils (test code = 73631-6) NONE SEEN NONE SEEN [facility] TylerUrine Ghspdymdgdw4727-99-97 22:51:00* Test Item Value Reference Range Interpretation Comments Urine Eosinophils (test code = 88091-6) NONE SEEN NONE SEEN [facility] TylerUrine Random Total Dacqghz3443-34-59 19:54:00* Test Item Value Reference Range Interpretation Comments Urine Random Total Protein (test code = 2888-6) 346.4 1-14 H [facility] TylerUrine Random Total Uxabedj4596-70-28 19:54:00* Test Item Value Reference Range Interpretation Comments Urine Random Total Protein (test code = 2888-6) 346.4 1-14 H [facility] TylerUrine Random Total Ukcgfsr5576-52-78 19:54:00* Test Item Value Reference Range Interpretation Comments Urine Random Total Protein (test code = 2888-6) 346.4 1-14 H [facility] TylerB-Ozprotwqugfrtrj6575-24-21 19:37:00* Test Item Value Reference Range Interpretation Comments B-Hydroxybutyrate (test code = 80556-3) 1.34 [facility] TylerB-Tkqwcmfyndkhfft1854-53-20 19:37:00* Test Item Value Reference Range Interpretation Comments B-Hydroxybutyrate (test code = 01812-4) 1.34 [facility] TylerB-Pfqworswldoqawm2753-71-75 19:37:00* Test Item Value Reference Range Interpretation Comments B-Hydroxybutyrate (test code = 51386-5) 1.34 [facility] TylerUrine Random Gndkap1507-62-12 18:58:00* Test Item Value Reference Range Interpretation Comments Urine Random Sodium (test code = 2955-3) 94 [facility] TylerUrine Random Xttlrh2262-99-56 18:58:00* Test Item Value Reference Range Interpretation Comments Urine Random Sodium (test code = 2955-3) 94 [facility] TylerUrine Random Mkfdoi9762-90-81 18:58:00* Test Item Value Reference Range Interpretation Comments Urine Random Sodium (test code = 2955-3) 94 [facility] TylerDirect Hojvgynee9565-00-65 16:39:00* Test Item Value Reference Range Interpretation Comments Direct Bilirubin (test code = 45977-8) 0.1 0.0-5.0 [facility] Axeetubfm3882-00-81 16:39:00* Test Item Value Reference Range Interpretation Comments Direct Bilirubin (test code = 34905-8) 0.1 0.0-5.0 [facility] Nuuqfwhyq3815-87-80 16:39:00* Test Item Value Reference Range Interpretation Comments Direct Bilirubin (test code = 46923-8) 0.1 0.0-5.0 [facility] 14:09:00* Test Item Value Reference Range Interpretation Comments Ferritin (test code = 2276-4) 11.31 4.63-204.00 [facility] 14:09:00* Test Item Value Reference Range Interpretation Comments Ferritin (test code = 2276-4) 11.31 4.63-204.00 [facility] Mrmnv3335-23-52 13:47:00* Test Item Value Reference Range Interpretation Comments Iron Level (test code = 2498-4) 14 50-170 L [facility] Iron Binding Sthezmuc0223-83-95 13:47:00* Test Item Value Reference Range Interpretation Comments Total Iron Binding Capacity (test code = 2500-7) 398 261-4 78 [facility] Iron Gtzfdhbsma5746-68-14 13:47:00* Test Item Value Reference Range Interpretation Comments Percent Iron Saturation (test code = 2502-3) 4 15-50 L [facility]2017-[facility] 13:47:00* Test Item Value Reference Range Interpretation Comments Transferrin (test code = 3034-6) 284 180-382 [facility] Prysb7448-99-44 13:47:00* Test Item Value Reference Range Interpretation Comments Iron Level (test code = 2498-4) 14 50-170 [facility] Cbkzvvbt0813-64-54 13:47:00* Test Item Value Reference Range Interpretation Comments Total Iron Binding Capacity (test code = 2500-7) 398 261-4 78 [facility] Iron Lmvitzgexe6522-59-14 13:47:00* Test Item Value Reference Range Interpretation Comments Percent Iron Saturation (test code = 2502-3) 4 15-50 L [facility]2017-[facility]-07 13:47:00* Test Item Value Reference Range Interpretation Comments Transferrin (test code = 3034-6) 284 180-382 [facility] TylerProthrombin Yqkc9438-88-75 12:22:00* Test Item Value Reference Range Interpretation Comments Prothrombin Time (test code = 5902-2) 15.4 11.9-14.5 H [facility] TylerProthromb Time International Ratio 2016-11-16 12:22:00* Test Item Value Reference Range Interpretation Comments Prothromb Time International Ratio (test code = 6301-6) 1.16 Oral Anticoagulant Therapy INR Values:1. Low Intensity Therapy 1.5 - 2.02 . Moderate Intensity Therapy 2.0 - 3.03. High Intensity Therapy(1) 2.5 - 3. 54. High Intensity Therapy(2) 3.0 - 4.05. Panic Value INR > 5.0 [facility] Partial Thromboplast Time 2016-11-16 12:22:00* Test Item Value Reference Range Interpretation Comments Activated Partial Thromboplast Time (test code = 25247-3) 30.1 23.8-35.5 [facility] Wbmw6228-98-08 12:22:00* Test Item Value Reference Range Interpretation Comments Prothrombin Time (test code = 5902-2) 15.4 11.9-14.5 H [facility] International Ratio 2016-11-16 12:22:00* Test Item Value Reference Range Interpretation Comments Prothromb Time International Ratio (test code = 6301-6) 1.16 Oral Anticoagulant Therapy INR Values:1. Low Intensity Therapy 1.5 - 2.02 . Moderate Intensity Therapy 2.0 - 3.03. High Intensity Therapy(1) 2.5 - 3. 54. High Intensity Therapy(2) 3.0 - 4.05. Panic Value INR > 5.0 [facility] Partial Thromboplast Time 2016-11-16 12:22:00* Test Item Value Reference Range Interpretation Comments Activated Partial Thromboplast Time (test code = 35386-9) 30.1 23.8-35.5 [facility] [address] [address] Patient Name: YARITZA JOSEPH MR #: [id number] : 1960 Age/Sex: 57/F Req #: [id number] Adm Physician: Ordered by: HAM CALLAHAN MD Report #: [id number] Location: ER Room/Bed: Procedure: [id number] DX/CHEST 2 VIEWS Exam Da te: 07/10/17 [...] TO: HAM CALLAHAN MD CHEST 2 VIEWS [place] [address] Patient Name: YARITZA JOSEPH MR #: [id number] : 1960 Age/Sex: 56/F Req #: [id number] Adm Physician: BRENDAN TSANG MD Ordered by: BRENDAN TSANG MD Report #: [id number] Location: [facility] Room/Bed: [place] [address] Procedure: [id number] DX/CHEST 2 VIEWS Exam [...] at 14:08 Dictated By: ALBERTO TENA MD 1408 Transcribed By: DHIRAJ hooks 06/26/17 1408 COPY TO: BRENDAN TSANG MD CHEST 2 VIEWS [facility] [address] [place] [address] Patient Name: YARITZA JOSEPH MR #: [id number] : 1960 Age/Sex: 56/F Req #: [id number] Adm Physician: Ordered by: JALEEL KELLEY MD Report #: [id number] Location: ER Room/Bed: Procedure: [id number] DX/CHEST 2 VIEWS Exa m Date: 06/24/17 Exam Time: 1516 REPORT STATUS: Signed PROCEDURE: Frontal and lateral views of the chest. COMPARISON: [facility], DX, CHEST SINGLE (PORTABLE), 04/25/2017, 10:22. INDICATIONS: [...] at 15:55 Dictated By: CHECO LIRA MD 1555 Tr anscribed By: DHIRAJ on 06/24/17 1555 COPY TO: JALEEL KELLEY MD CHEST SINGLE (PORTABLE) [place] [address] Patient Name: YARTIZA JSOEPH MR #: [id number] : 1960 Age/Sex: 56/F Req #: [id number] Adm Physician: NATALIE RAY MD Ordered by: SLAVA PATEL MD Report #: [id number] Location: MED/SURG Room/Bed: [facility] Procedure: 0316 -0036 DX/CHEST SINGLE (PORTABLE) Exam [...] at 11:15 Dictated By: TRISTEN MARKHAM MD 14 COPY TO: ZAK PATEL MD CHEST 2 VIEWS [place] [address] [place] [address] Patient Name: YARITZA JOSEPH MR #: [id number] : 1960 Age/Sex: 56/F Req #: [id number] Adm Physician: Ordered by: NATALIE RAY MD Report #: [id number] Location: OR Room/Bed: Procedure: 2552-1414 DX/CHEST 2 VIEWS Jodee valero Date: 04/22/17 Exam Time: 1045 REPORT STATUS: [...] at 11:15 Dictated By: MAYA SHEETS MD 14 Trans cribed By: DHIRAJ on 04/22/171114 COPY TO: NATALIE RAY MD CT ABDOMEN/PELVIS W [facility] [address] [place] [address] Patient Name: YARITZA JOSEPH MR #: [id number] : 1960 [facility]: 56[id number] Req #: [id number] Adm Physician: BRENDAN TSANG MD Ordered by: BRENDAN TSANG MD Report #: [id number] Location: MED/SURG Room/Bed: [facility] Procedure: [id number] CT/CT ABDOMEN/PELVIS W Exam Date: 11/27/16 Exam [...] BRENDAN TSANG MD IR CONSULT [place] [address] Patient Name: YARITZA JOSEPH MR #: [id number] : 1960 Age/Sex: 56/F Req #: [id number] [facility] Physician: BRENDAN TSANG MD Ordered by: FRANCIA SAWYER MD Report #: [id number] Location: MED/SURG Room/Bed: [facility] Procedure: 4002-0825 D X/IR CONSULT Exam Date: Exam Time: REPORT ST ATUS: Signed Tunneled Dialysis Catheter Placement November 25, 2016 Pre-P rocedure Diagnosis: End-Stage Renal Disease Post-procedure Diagnosis:End-Stage Renal Disease [employer] Superintendent: Vidhya Sheets Manager Intensive Care Unit: None Sedation: None. Heart rate and oxygen saturation were monitored in real-time. Blood pressure was measured in 5 minute increments. 1% lidocaine was used for local anesthesi a. Radiation Dose:84 cGycm2 (Dose Area Product) Fluoroscopy time:0.6 larry carine Estimate blood loss: 10 mL Blood administered: None Complications: No ne Implants/Grafts: 16 [place] 19 cm cuffed tunneled dialysis catheter Specim [...] An image was stored in the electronic Stat record. A wire was advanced across the [...] fluoroscopic guidance. This report was generated with [employer] ice-recognition technology. Errors in panel raiser operator can occur. Please interpre t accordingly and contact a radiologist if there are any questions regarding t he report. Signed by: Dr. Maya Sheets M.D. on 11/25/2016 2:19 PM Dictated By: MAYA SHEETS MD 27 Transcribed By: FRANCISCO J on 11/26/161127 COPY TO: FRANCIA GIBBS MD SPECIAL PROCEDURE IN DIRECTOR OF MARKETING [place] [address] Patient Name: YARITZA JOSEPH MR #: [id number] : 1960 Age/Sex: 56/F Req #: [id number] Adm Physician: BRENDAN TSANG MD Ordered by: FRANCIA SAWYER MD Report #: [id number] Location: MED/SURG Room/Bed: [facility] Procedure: [id number] I R/SPECIAL PROCEDURE IN DIRECTOR OF MARKETING Exam Date: Exam Donald e: REPORT STATUS: Signed Tunneled Dialysis Catheter Placement November 25, 2016 Pre-Procedure Diagnosis: End-Stage Renal Disease Post-procedure Diagnosis:End-Stage Renal Disease [employer] Superintendent: Vidhya Sheets Manager Intensive Care Unit: None Sedation: None. Heart rate and oxygen saturation were monitored in real-time. Blood pressure was measured in 5 minute increments. 1% lidocaine was used for local anesthesia. Radiation Dose:84 cGycm2 (Dose Area Product) Fluoro scopy time:0.6 minutes Estimate blood loss: 10 mL Blood administered: None Complications: None Implants/Grafts: 16 [place] 19 cm cuffed tunneled dialysis catheter Specimen: [...] jugular vein. An image was stored in [facility] electronic medical record. A wire was advanced [...] atriocaval junction/right atrium. At the end of th e procedure the catheter was flushed, packed [...] was generated with voice-recognition technology. Errors in panel raiser operator can occ ur. Please interpret accordingly and contact a radiologist if there are any qu estions regarding the report. Signed by: Dr. Maya Sheets M.D. on 11/25 2:19 PM Dictated By: MAYA SHEETS MD 1128 Transcribed By: FRANCISCO J on 11/26/16 1128 COPY TO: FRANCIA SAWYER MD [facility] [place] [address] Patient Name: YARITZA JOSEPH MR #: [id number] : 1960 Age/Sex: 56/F Req #: [id number] Adm Physician: BRENDAN TSANG MD Ordered by: SLAVA PATEL MD Report #: [id number] Loca tion: ICU Room/Bed: ICU 194-1 Procedure: [id number] DX /CHEST SINGLE (PORTABLE) Exam Date: 11/18/16 [...] MD 2 Transcribed By: FRANCISCO J on 11/18/16632 COPY TO: SLAVA PATEL MD CHEST SINGLE (PORTABLE) [place] [address] Patient Name: YARITZA JOSEPH MR #: [id number] : 1960 Age/Sex: 56/F Req #: [id number] Adm Physician: BRENDAN TSANG MD Ordered by: SLAVA PATEL MD Report #: [id number] Loca tion: ICU Room/Bed: ICU 194-1 Procedure: [id number] DX /CHEST SINGLE (PORTABLE) Exam Date: 11/17/16 [...] PATEL MD RENAL RETROPERITONEAL COMP [place] [address] Patient Name: YARITZA JOSEPH MR #: [id number] : 1960 Age/Sex: 56/F Req #: [id number] Adm Physician: BRENDAN TSANG MD Ordered by: FRANCIA SAWYER MD Report #: [id number] Location: ICU Room/Bed: ICU 1941 Procedure: [id number] US /US RENAL RETROPERITONEAL COMP Exam Date: 11/17/16 E xam Time: 1957 REPORT STATUS: Signed EXAM: Renal Ultrasound DATE: 12:00 AM Time stamp on exam: 1918 hours INDICATION: Anemia, hypertens henry COMPARISON: None TECHNIQUE: Transverse and longitudinal sonographic kayley ges of the kidneys and bladder were obtained. FINDINGS: RIGHT KIDNEY : 11.3 x 4.1 x 3.9 cm, normal cortical thickness. Echogenicity: Normal [place] nephrosis: None Calculi: None Cyst/Mass: Simple cyst [...] FRANCIA SAWYER MD IR CONSULT [place] [address] Patient Name: YARITZA JOSEPH MR #: [id number] : 1960 Age/Sex: 56/F Req #: [id number] Adm Physician: BRENDAN TSANG MD Ordered by: FRANCIA SAWYER MD Report #: [id number] Loca tion: ICU Room/Bed: ICU [facility] Procedure: [id number] DX /IR CONSULT Exam Date: Exam Time: [...] Serial dilatation was accomplishe d. A 13 Citizen [place] 15 cm long temporary triple-lumen Trialysis catheter [...] 11/16/2016 at 16:09 Electronically approved by: Michaela Mcallister D.O. on 11/16/2016 at 16:09 Dictated By: MICHAELA MCALLISTER DO 1943 Transcribed By: DHIRAJ hooks 11/16/161608 COPY T O: FRANCIA SAWYER MD CHEST SINGLE (PORTABLE) [place] [address] Patient Name: YARITZA JOSEPH MR #: [id number] : 1960 Age/Sex: 56/F Req #: [id number] Adm Physician: BRENDAN TSANG MD Ordered by: ROCKY CABEZAS MD Report #: [id number] Location: [facility] Room/Bed: [place] [address] Procedure: [id number] DX/CHEST SINGLE (PORTABLE) Exam [...] CABEZAS MD US GUIDANCE FOR VASCULAR ACCES [place] [address] Patient Name: YARITZA JOSEPH MR #: [id number] : 1960 Age/Sex: 56/F Req #: [id number] Adm Physician: BRENDAN TSANG MD Ordered by: FRANCIA SAWYER MD Report #: [id number] Loca tion: ICU Room/Bed: ICU [facility] Procedure: [id number] US /US GUIDANCE FOR VASCULAR ACCES Exam Date: 11/16/16 Exam Time: 1430 REPORT STATUS: Signed PROCEDURE: ULTRASOUND GUIDANCE FOR VASCULAR ACCESS COMPARISON: None. INDICATIONS: Patient in ar ed of IV access and temporary hemodialysis. [...] 15:28 Dictated B y: MICHAELA MCALLISTER DO 1528 Transcribed By: DHIARJ on 11/16/168 COPY TO: FRANCIA SAWYER MD FLUORO GUIDANCE DEE SO PL/REM [place] [id number] Patient Name: YARITZA JOSEPH MR #: [id number] : 1960 Age/Sex: 56/F Req #: [id number] Adm Physician: BRENDAN TSANG MD Ordered by: BRENDAN TSANG MD Report #: [id number] Location: ICU Room/Bed: ICU 194-1 Procedure: 1506-5873 D X/FLUORO GUIDANCE DEE SO PL/REM Exam [...] sheath. Serial dilatation was accomplished. A 13 Citizen [place] 15 cm long temporary triple-l umen Trialysis [...] at 16:09 Dictated By: MICHAELA MCALLISTER DO 5595 Transcribed By: IN [facility] on 11/16/16 6639 COPY TO: BRENDAN TSANG MD [facility] (PORTABLE) [place] [id number] Patient Name: YARITZA JOSEPH MR #: [id number] : 1960 Age/Sex: 56/F Req #: [id number] [facility] Physician: Ordered by: NAFISA LARES MD Report #: [id number] Location: ER Room/Bed: Procedure: [id number] DX/CHEST SINGLE (ADAM BLE) Exam Date: 11/15/16 [...]
--- NOTE | 2019-12-28 13:50 | Diagnostic Imaging Report ---
EXAM: HIP LEFT 2-3 VW (+/- PELVIS) DATE: 12/28/2019 12:45 PM INDICATION: Fall COMPARISON: Abdominal radiograph from 06/07/2019 FINDINGS/IMPRESSION: In this patient with history of left hip fracture status post fixation, there is increased lucency within the subcapital left proximal femur concerning for acute, mildly displaced fracture. No other acute fracture or dislocation is appreciated. Vascular classifications noted. The surrounding soft tissues are otherwise unremarkable without evidence for opaque foreign body. Signed by: Dr. Clayton Calles MD on 12/28/2019 1:47 PM
--- NOTE | 2019-12-28 14:10 | Emergency Department Note ---
History of Present Illnes History of Present Illness Chief Complaint: General Medicine Complaints History of Present Illness This is a 59 year old female Chief Complaint Comment PATIENT IN FROM FOCUSED CARE; STATES SHE LOST HER BALANCE AND FELL GETTING SOMETHING OUT OF HER CLOSET. PATIENT HIT THE LEFT SIDE OF HER HEAD AND LEFT HIP DURING THE FALL. PATIENT ALERT AND ORIENTED, RESP EVEN AND NONLABORED, APPEARS IN NO DISTRESS, DENIES PAIN AT THIS TIME, STATES IS ABLE TO WALK WITH WALKER STILL. 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, Pot Fluxer/EMS Arrival Mode: [facility] Mechanical Maintenance Worker Required: No Onset (how long ago): day(s) (1) Location: L hip Quality: Sharp Radiation: Reports non-radiation Severity: moderate Onset quality: sudden Duration (how long): hour(s) Timing of current episode: constant Progression: unchanged Chronicity: new Context: Denies recent illness, Denies recent surgery Relieving factors: none Exacerbating factors: none Associated symptoms: Reports denies other symptoms Treatments prior to arrival: none Past Medical/Family History Physician Review I have reviewed the patient's past medical and family history. Any updates have been documented here. Past Medical History Recent Fever: No Clinical Suspicion of Infectio: No New/Unexplained Change in Ment: No Past Medical History: Hypertension, Diabetes, COPD, CVA, CAD, Cancer, ESRD, Hemodyalisis, Depression, Chronic Kidney Disease Other Medical History: COLON CANCER Past Surgical History: Hip Replacement, Colon Resection Other Surgery: PINS PLACED IN LEFT HIP (04/01) Social History Smoking Cessation: Never Smoker Counseling Performed: No Alcohol Use: None Any Illegal Drug Use: No Physically hurt or threatened: No Other Last Tetanus: unk Any Pre-Existing Lines (PICC,: No Review of Systems Review of Systems Constitutional: Reports no symptoms EENTM: Reports no symptoms Cardiovascular: Reports no symptoms Respiratory: Reports no symptoms Gastrointestinal: Reports no symptoms Genitourinary: Reports no symptoms Musculoskeletal: Reports as per HPI Integumentary: Reports no symptoms Neurological: Reports no symptoms Psychological: Reports no symptoms Endocrine: Reports no symptoms Hematological/Lymphatic: Reports no symptoms Physical Exam Related Data Allergies: Coded Allergies: No Known Allergies (Unverified , 12/28/19) Triage Vital Signs Vital Signs Date Time Temp Pulse Resp B/P (MAP) Pulse Ox O2 Delivery O2 Flow Rate FiO2 12/28/19 12:17 96.9 76 20 98 Room Air Vital signs reviewed: Yes Physical Exam CONSTITUTIONAL Constitutional: Present well-developed, Present well-nourished HENT HENT: Present normocephalic, Present atraumatic, Present oropharynx clear/moist, Present nose normal HENT L/R: Present left ext ear normal, Present right ext ear normal EYES Eyes: Reports PERRL, Reports conjunctivae normal NECK Neck: Present ROM normal PULMONARY Pulmonary: Present effort normal, Present breath sounds normal CARDIOVASCULAR Cardiovascular: Present regular rhythm, Present heart sounds normal, Present capillary refill normal, Present normal rate GASTROINTESTINAL Abdominal: Present soft, Present nontender, Present bowel sounds normal GENITOURINARY Genitourinary: Present exam deferred SKIN Skin: Present warm, Present dry MUSCULOSKELETAL Musculoskeletal: Present ROM normal, Present tenderness (Mild L hip) NEUROLOGICAL Neurological: Present alert, Present oriented x 3, Present no gross motor or sensory deficits PSYCHOLOGICAL Psychological: Present mood/affect normal, Present judgement normal Assessment & Plan Medical Decision Making MDM Left hip fracture noted on x-ray. Discussed Dr. Arevalo who is agreed to evaluate the patient to the hospital. Patient will be admitted to Dr. Willa vega. Patient transferred to the floor. Reassessment Reassessment time: 14:49 Reassessment Well appearing, NAD Assessment & Plan Final Impression: (1) Hip fracture Depart Disposition: ADMITTED Last Vital Signs Date Time Temp Pulse Resp B/P (MAP) Pulse Ox O2 Delivery O2 Flow Rate FiO2 12/28/19 12:17 96.9 76 20 98 Room Air Home Meds Reported Medications Insulin Detemir (Levemir Flextouch) 100 Unit/1 Ml Insuln.pen, 22 UNITS SC DAILY, UNIT 07/19/19 Clonidine Hcl (CLONIDINE HCL) 0.2 Mg Tablet, 1 TAB PO TID 07/19/19 Ipratropium/Albuterol Sulfate (COMBIVENT RESPIMAT INHAL SPRAY) 4 Gm Aer.w.adap, 2 INH IH TID, INH 07/19/19 Celecoxib* (CELEBREX*) 100 Mg Capsule, 200 MG PO BID PRN for MODERATE PAIN (4- 6), #30 CAP 07/19/19 Ticagrelor (BRILINTA) 90 Mg Tablet, 1 TAB PO BID 07/19/19 Lidocaine (Lmx 4) 5 Gm Cream..g., 1 APPLIC TOP ASDIRECTED, GM 07/19/19 [Duoneb] 1 NEB No Conflict Check, 3 ML INH Q6H PRN for SHORTNESS OF BREATH 05/13/19 Clopidogrel Bisulfate* (PLAVIX) 75 Mg Tablet, 75 MG PO DAILY for 28 Days, #30 TAB Patient reports supposed to take but does not take 05/13/19 Aspirin (ASPIR 81) 81 Mg Tablet.dr, 81 MG PO DAILY 05/13/19 Carvedilol (COREG) 3.125 Mg Tab, 3.125 MG PO Q12H 05/13/19 Sevelamer Hcl (RENAGEL) 800 Mg Tablet, 2 TAB PO TID Three times week apply small amount over fistula 1 hr prior to dialysis 10/27/18 [Trelegy] No Conflict Check, 1 INH INH DAILY 100mcg-62.5mcg-25mcg 10/27/18 Atorvastatin Calcium (ATORVASTATIN CALCIUM) 20 Mg Tablet, 40 MG PO HS, #30 TAB 03/23/18 Escitalopram Oxalate (LEXAPRO) 20 Mg Tablet, 20 MG PO DAILY 03/31/17 RICARDO CROSS MD Dec 28, 2019 14:10
[2019-12-28] MEDS ORDERED: SODIUM CHLORIDE 0.9% 1000ML 1,000 ML IV SCH (14:45)
--- OUTSIDE RECORDS SUMMARY | 2019-12-28 14:57 | XMS REPORT | Clinical Summary ---
Author Author [employer] [facility] [employer] Address Unknown Phone Unavailable Care Team Providers Care Squad Leader Name Role Phone Asked, No Pcp PCP [...] Plan / Dates Group Medicare MEDICARE MEDICARE [id number] [id number] DENY, PART A AND resent [place] Advance Directives For more information, please contact: [phone] Patient Solution Engineer Explanation Type Date Recorded Advance Directives, Living Will and Medical Power of Inside Plant Supervisor
--- OUTSIDE RECORDS SUMMARY | 2019-12-28 14:58 | XMS REPORT | Continuity of Care Document ---
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 06:15:00* Test Item Value Reference Range Interpretation Comments Monocytes # (Auto) (test code = 742-7) 1.0 0.2-0.8 H [facility] CenterEosinophils # (Auto)2019-05-13 06:15:00* Test Item Value Reference Range Interpretation Comments Eosinophils # (Auto) (test code = 711-2) 0.2 0.0-0.4 [facility] CenterBasophils # (Auto)2019-05-13 06:15:00* Test Item Value Reference Range Interpretation Comments Basophils # (Auto) (test code = 704-7) 0.0 0.0-0.1 [facility] CenterAbsolute Immature Granulocyte (auto 2019-05-13 06:15:00* Test Item Value Reference Range Interpretation Comments Absolute Immature Granulocyte (auto (carine t code = Absolute Immature Granulocyte (auto) 0.02 0-0.1 [facility] CenterPercent Reticulocyte Dyhpp8281-95-81 06:14:00* Test Item Value Reference Range Interpretation Comments Percent Reticulocyte Count (test code = 63190-3) 7.9 0.8-2 .2 [facility] Surface Ymsdsga6253-53-64 08:55:00* Test Item Value Reference Range Interpretation Comments Hepatitis B Surface Antigen (test code = 5196-1) Negative Negat henry Performed at: HD - [facility] [address] [id number] Director: Edmond Mcneil MD, Phone: [phone] Medical CenterABDOMEN-1VIEW (KUB)2019-05-11 06:38:00 [place] [address] Patient Name: YARITZA JOSEPH MR #: [id number] : 1960 Age/Sex: 58/F Req #: [id number] Adm Physician: BRENDAN TSANG MD Ordered by: LARRY TSANG MD Report #: [id number] Location: MED/SURG2 Room/Bed: [facility] Procedure: [id number] DX/ABDOMEN-1VIEW (KUB) Exam Date: 05/11/19 Exam Donald e: 0610 REPORT STATUS: Signed Ab domen/KU INDICATION: sbo [id number] COMPARISON: CT ches t, abdomen, pelvis [...] 04/12 COPY TO: LARRY TSANG MD Prothrombin Qzzf2287-01-44 06:13:00* Test Item Value Reference Range Interpretation Comments Prothrombin Time (test code = 5902-2) 14.8 11.9-14.5 H [facility] CenterProthromb Time International Ratio 2019-05-11 06:13:00* Test Item Value Reference Range Interpretation Comments Prothromb Time International Ratio (test code = 6301-6) 1.09 Oral Anticoagulant Therapy INR Values:1. Low Intensity Therapy 1.5 - 2.02 . Moderate Intensity Therapy 2.0 - 3.03. High Intensity Therapy(1) 2.5 - 3. 54. High Intensity Therapy(2) 3.0 - 4.05. Panic Value INR > 5.0 [facility] CenterCT CHEST R9794-76-71 10:37:00 [facility] [address] [place] [address] Patient Name: YARITZA JOSEPH MR #: [id number] : 1960 Age/Sex: 58/F Req #: [id number] Adm Physician: BRENDAN TSANG MD Ordered by: SRIRAM HIDALGO DO Report #: [id number] Location: [facility] Room/Bed: [place] [address] Procedure: [id number] C T/CT CHEST W Exam Date: 05/10/19 Exam Time: 09 REPORT STATUS: Signed EXAM: CT Ches t, [...] HIDALGO DO CT ABDOMEN/PELVIS W 2019-05-10 10:37:00 [place] [address] Patient Name: YARITZA JOSEPH MR #: [id number] : 1960 Age/Sex: 58/F Req #: [id number] Adm Physician: BRENDAN TSANG MD Ordered by: SRIRAM HIDALGO DO Report #: [id number] Location: [facility] Room/Bed: [place] [address] Procedure: [id number] C T/CT ABDOMEN/PELVIS W Exam Date: 05/10/19 [...] HIDALGO DO CHEST 2 VIEWS 2019-05-10 07:23:00 [place] [address] Patient Name: YARITZA JOSEPH MR #: [id number] : 1960 Age/Sex: 58/F Req #: [id number] Adm Physician: Ordered by: SRIRAM HIDALGO DO Report #: [id number] Location: ER Room/Bed: Procedure: [id number] DX/ CHEST 2 VIEWS Exam Date: 05/10/19 Exam Time: 0625 REPORT STATUS: Signed EXAMINATION: CHEST 2 VIEWS [...] COPY TO: SRIRAM HIDALGO DO CT ABDOMEN/PELVIS BJ8892-35-29 06:42:00 [place] [address] Patient Name: YARITZA JOSEPH MR #: [id number] : 1960 Age/Sex: 58/F Req #: [id number] Adm Physician: Ordered by: SRIRAM HIDALGO DO Report #: [id number] Location: ER Room/Bed: Procedure: [id number] CT/ CT ABDOMEN/PELVIS WO Exam Date: 05/10/19 [...] COPY TO: SRIRAM HIDALGO DO Lactic Acid Vgfde3476-88-61 05:48:00* Test Item Value Reference Range Interpretation Comments Lactic Acid Level (test code = Lactic Acid Level) 1.5 0.5- 2.0 [facility] CenterB-Type Natriuretic Gairyan1991-25-41 05:45:00* Test Item Value Reference Range Interpretation Comments B-Type Natriuretic Peptide (test code = 99495-9) 2115.2 0-100 H [facility] CenterCreatine Bxdcij9336-71-22 05:45:00* Test Item Value Reference Range Interpretation Comments Creatine Kinase (test code = 2157-6) 13 29-168 L [facility] CenterCreatine Kinase HY0069-39-30 05:45:00* Test Item Value Reference Range Interpretation Comments Creatine Kinase MB (test code = 19281-0) 1.70 0-5.0 [facility] CenterTroponin P3173-43-91 05:45:00* Test Item Value Reference Range Interpretation Comments Troponin I (test code = 34096-3) 0.009 0-0.300 [facility] CenterBlood Wlbruql0530-42-87 11:36:00* Test Item Value Reference Range Interpretation Comments Blood Culture (test code = 62774293) NO GROWTH AFTER 72 HOURS [facility] Pcelatr4731-04-11 16:21:00* Test Item Value Reference Range Interpretation Comments Bedside Glucose (test code = 19084-5) 155 70-120 H Meter ID: [id number] [facility] [place] Glucose 2019-04-27 16:21:00* Test Item Value Reference Range Interpretation Comments Bedside Glucose (test code = 76678-6) 155 70-120 H Meter ID: [id number] Health Allenood Culture 2019-04-27 11:36:00* Test Item Value Reference Range Interpretation Comments Blood Culture (test code = 58031285) NO GROWTH AFTER 48 HOURS [facility] CenterUrine XYW5179-18-29 10:37:00* Test Item Value Reference Range Interpretation Comments Urine WBC (test code = 5821-4) 0-5 0-5 [facility] CenterUrine DRH5833-46-82 10:37:00* Test Item Value Reference Range Interpretation Comments Urine RBC (test code = 02540-6) 0-5 0-5 [facility] CenterUrine Qjcienlr8735-57-90 10:37:00* Test Item Value Reference Range Interpretation Comments Urine Bacteria (test code = 47661-6) RARE NONE [facility] CenterUrine Epithelial Kmmqq9062-71-18 10:37:00 * Test Item Value Reference Range Interpretation Comments Urine Epithelial Cells (test code = 31778-4) FEW NONE [facility] CenterUrine FFW5579-90-65 10:37:00* Test Item Value Reference Range Interpretation Comments Urine WBC (test code = 5821-4) 0-5 0-5 [facility] CenterUrine TUC3606-09-04 10:37:00* Test Item Value Reference Range Interpretation Comments Urine RBC (test code = 18140-7) 0-5 0-5 [facility] CenterUrine Jfndtsfs9701-33-49 10:37:00* Test Item Value Reference Range Interpretation Comments Urine Bacteria (test code = 80062-3) RARE NONE [facility] CenterUrine Epithelial Ddihm2141-60-10 10:37:00 * Test Item Value Reference Range Interpretation Comments Urine Epithelial Cells (test code = 09776-9) FEW NONE [facility] CenterUrine Ozike2747-82-31 10:30:00* Test Item Value Reference Range Interpretation Comments Urine Color (test code = 5778-6) YELLOW YELLOW [facility] CenterUrine Bbicvuw0423-94-59 10:30:00* Test Item Value Reference Range Interpretation Comments Urine Clarity (test code = 16103-0) CLEAR CLEAR [facility] CenterUrine Specific Edcmypz0990-28-35 10:30:00 * Test Item Value Reference Range Interpretation Comments Urine Specific [place] (test code = 5811-5) 1.025 1.010-1.02 5 [facility] CenterUrine fI9960-77-88 10:30:00* Test Item Value Reference Range Interpretation Comments Urine pH (test code = 06890-3) 8.5 5-7 [facility] CenterUrine Leukocyte Lmahlimt1143-32-92 10:30:00* Test Item Value Reference Range Interpretation Comments Urine Leukocyte Esterase (test code = 5799-2) NEGATIVE NEGATIVE [facility] CenterUrine Jkxivek6947-74-66 10:30:00* Test Item Value Reference Range Interpretation Comments Urine Nitrite (test code = 08901-3) NEGATIVE NEGATIVE [facility] CenterUrine Cgzzitv9345-87-15 10:30:00* Test Item Value Reference Range Interpretation Comments Urine Protein (test code = 5804-0) >=300 NEGATIVE [facility] CenterUrine Glucose (UA)2019-04-26 10:30:00* Test Item Value Reference Range Interpretation Comments Urine Glucose (UA) (test code = 2349-9) 2+ NEGATIVE H [facility] CenterUrine Semugsg9753-69-49 10:30:00* Test Item Value Reference Range Interpretation Comments Urine Ketones (test code = 13568-7) NEGATIVE NEGATIVE [facility] CenterUrine Tnwmdkwjltbg3488-36-99 10:30:00* Test Item Value Reference Range Interpretation Comments Urine Urobilinogen (test code = 51766-4) 0.2 0.2-1 [facility] CenterUrine Qwrkoucsm7813-62-18 10:30:00* Test Item Value Reference Range Interpretation Comments Urine Bilirubin (test code = 1978-6) NEGATIVE NEGATIVE [facility] CenterUrine Ycmst5828-08-76 10:30:00* Test Item Value Reference Range Interpretation Comments Urine Blood (test code = 69942-7) NEGATIVE NEGATIVE [facility] CenterUrine Wydev4298-02-98 10:30:00* Test Item Value Reference Range Interpretation Comments Urine Color (test code = 5778-6) YELLOW YELLOW [facility] CenterUrine Ekpuyio7525-34-12 10:30:00* Test Item Value Reference Range Interpretation Comments Urine Clarity (test code = 11894-8) CLEAR CLEAR [facility] CenterUrine Specific Azjpaxy3284-20-86 10:30:00 * Test Item Value Reference Range Interpretation Comments Urine Specific [place] (test code = 5811-5) 1.025 1.010-1.02 5 [facility] CenterUrine eL7211-54-86 10:30:00* Test Item Value Reference Range Interpretation Comments Urine pH (test code = 98456-5) 8.5 5-7 [facility] CenterUrine Leukocyte Ckpimcec3920-48-94 10:30:00* Test Item Value Reference Range Interpretation Comments Urine Leukocyte Esterase (test code = 5799-2) NEGATIVE NEGATIVE [facility] CenterUrine Lvxvvns8628-65-71 10:30:00* Test Item Value Reference Range Interpretation Comments Urine Nitrite (test code = 32164-7) NEGATIVE NEGATIVE [facility] CenterUrine Pefxpto8243-75-73 10:30:00* Test Item Value Reference Range Interpretation Comments Urine Protein (test code = 5804-0) >=300 NEGATIVE [facility] CenterUrine Glucose (UA)2019-04-26 10:30:00* Test Item Value Reference Range Interpretation Comments Urine Glucose (UA) (test code = 2349-9) 2+ NEGATIVE H [facility] CenterUrine Regkapz1152-81-94 10:30:00* Test Item Value Reference Range Interpretation Comments Urine Ketones (test code = 73121-4) NEGATIVE NEGATIVE [facility] CenterUrine Dbvtnyjwmvyq2971-90-70 10:30:00* Test Item Value Reference Range Interpretation Comments Urine Urobilinogen (test code = 09576-4) 0.2 0.2-1 [facility] CenterUrine Litfszjez8948-04-05 10:30:00* Test Item Value Reference Range Interpretation Comments Urine Bilirubin (test code = 1978-6) NEGATIVE NEGATIVE [facility] CenterUrine Hwaqm4455-49-93 10:30:00* Test Item Value Reference Range Interpretation Comments Urine Blood (test code = 66809-5) NEGATIVE NEGATIVE [facility] CenterHekaiser [facility] B Surface Antibody, Quant 2019-04-26 09:57:00* Test Item Value Reference Range Interpretation Comments Hepatitis B Surface Antibody, Quant (test code = 5194-6) Reactive Status of Immunity Anti-HBs Level -- NON REACTIVE: Inconsistent with Immunity 0.0 - 9.9REACTIVE:Consistent with Immunity >9.9 mIU/mL Performed at: - [facility] [address] [id number] Director: Edmond Mcneil MD, Phone: [phone] Medical CenterHepatihorizon medical center B Core Total Razienxy7196-08-33 09:57:00* Test Item Value Reference Range Interpretation Comments Hepatitis B Core Total Antibody (test code = 77983-0) Negative [facility] CenterHepatitis C Nggsedst6561-29-26 09:57:00* Test Item Value Reference Range Interpretation Comments Hepatitis C Antibody (test code = 34086-2) <0.1 [facility] B Surface Qonnovv1583-66-93 09:57:00* Test Item Value Reference Range Interpretation Comments Hepatitis B Surface Antigen (test code = 5196-1) Negative [facility] B Surface Antibody, Quant 2019-04-26 09:57:00* Test Item Value Reference Range Interpretation Comments Hepatitis B Surface Antibody, Quant (test code = 5194-6) Reactive Status of Immunity Anti-HBs Level -- NON REACTIVE: Inconsistent with Immunity 0.0 - 9.9REACTIVE:Consistent with Immunity >9.9 mIU/mL Performed at: [facility] [address] [id number] Director: Edmond Mcneil MD, Phone: [phone] Scott & [facility] B Core Total Wskxiffm2800-71-98 09:57:00* Test Item Value Reference Range Interpretation Comments Hepatitis B Core Total Antibody (test code = 12611-9) Negative [facility] C Bbcnfjzc6615-09-68 09:57:00* Test Item Value Reference Range Interpretation Comments Hepatitis C Antibody (test code = 33544-9) <0.1 [facility] B Surface Dvilgey4520-51-19 09:57:00* Test Item Value Reference Range Interpretation Comments Hepatitis B Surface Antigen (test code = 5196-1) Negative [facility] B Surface Antibody, Quant 2019-04-26 09:57:00* Test Item Value Reference Range Interpretation Comments Hepatitis B Surface Antibody, Quant (test code = 5194-6) Reactive Status of Immunity Anti-HBs Level -- NON REACTIVE: Inconsistent with Immunity 0.0 - 9.9REACTIVE:Consistent with Immunity >9.9 mIU/mL Performed at: [facility] [address] [place] [id number] Director: Edmond Mcneil MD, Phone: [phone] Medical CenterHepatitis B Core Total Fwrgyxry9712-42-58 09:57:00* Test Item Value Reference Range Interpretation Comments Hepatitis B Core Total Antibody (test code = 86791-0) Negative [facility] CenterHekaiser [facility] C Sktesjfg4391-65-78 09:57:00* Test Item Value Reference Range Interpretation Comments Hepatitis C Antibody (test code = 72148-8) <0.1 [facility] B Surface Zkjpoxx3712-04-39 09:57:00* Test Item Value Reference Range Interpretation Comments Hepatitis B Surface Antigen (test code = 5196-1) Negative [facility] Center[facility] Rqerk3316-13-52 06:27:00* Test Item Value Reference Range Interpretation Comments Sodium Level (test code = 2951-2) 140 136-145 [facility] CenterPotassium Wsomi3248-87-24 06:27:00* Test Item Value Reference Range Interpretation Comments Potassium Level (test code = 2823-3) 4.2 3.5-5.1 [facility] CenterChloride Vcrlu6346-53-12 06:27:00* Test Item Value Reference Range Interpretation Comments Chloride Level (test code = 2075-0) 97 98-107 L [facility] CenterCarbon Dioxide Musmn3845-46-84 06:27:00* Test Item Value Reference Range Interpretation Comments Carbon Dioxide Level (test code = 2028-9) 25 22-29 [facility] CenterAnion Kmd1329-52-58 06:27:00* Test Item Value Reference Range Interpretation Comments Anion Gap (test code = 15412-4) 22.2 8-16 H [facility] CenterBlood Urea Xkhycizi1694-15-06 06:27:00* Test Item Value Reference Range Interpretation Comments Blood Urea Nitrogen (test code = 3094-0) 20 7-26 [facility] CenterCreatinine2020-03-16 06:27:00* Test Item Value Reference Range Interpretation Comments Creatinine (test code = 2160-0) 4.08 0.57-1.11 H [facility] CenterBUN/Creatinine Nulty7453-74-29 06:27:00* Test Item Value Reference Range Interpretation Comments BUN/Creatinine Ratio (test code = 3097-3) 5 6-25 L [facility] CenterEstimat Glomerular Filtration Rate 2019-04-26 06:27:00* Test Item Value Reference Range Interpretation Comments Estimat Glomerular Filtration Rate (test code = 307952272) 11 >60 L Ranges were taken from the National Kidney Disease Education Program and the [facility] Kidney Foundation literature.Reference ranges:60 or greater: Hjzwws76-29 ( for 3 consecutive months): Chronic kidney disease 15 or less: Kidney failureKnapp Medical CenterGlucose Jyghs4572-03-39 06:27:00* Test Item Value Reference Range Interpretation Comments Glucose Level (test code = DBW7632) 135 74-118 H [facility] CenterCalcium Xepye7848-18-00 06:27:00* Test Item Value Reference Range Interpretation Comments Calcium Level (test code = 93823-6) 9.3 8.4-10.2 [facility] Centerodium Aozak1863-40-36 06:27:00* Test Item Value Reference Range Interpretation Comments Sodium Level (test code = 2951-2) 140 136-145 [facility] CenterPotassium Dcuge1407-69-90 06:27:00* Test Item Value Reference Range Interpretation Comments Potassium Level (test code = 2823-3) 4.2 3.5-5.1 [facility] CenterChloride Vwskf9456-50-27 06:27:00* Test Item Value Reference Range Interpretation Comments Chloride Level (test code = 2075-0) 97 98-107 L [facility] CenterCarbon Dioxide Mduyd2644-07-26 06:27:00* Test Item Value Reference Range Interpretation Comments Carbon Dioxide Level (test code = 2028-9) 25 22-29 [facility] CenterAnion Nyu2862-34-66 06:27:00* Test Item Value Reference Range Interpretation Comments Anion Gap (test code = 13612-1) 22.2 8-16 H [facility] CenterBlood Urea Oyducnzg6903-94-25 06:27:00* Test Item Value Reference Range Interpretation Comments Blood Urea Nitrogen (test code = 3094-0) 20 7-26 [facility] CenterCreatinine2020-03-16 06:27:00* Test Item Value Reference Range Interpretation Comments Creatinine (test code = 2160-0) 4.08 0.57-1.11 H [facility] CenterBUN/Creatinine Fjlps9984-97-82 06:27:00* Test Item Value Reference Range Interpretation Comments BUN/Creatinine Ratio (test code = 3097-3) 5 6-25 L [facility] CenterEstimat Glomerular Filtration Rate 2019-04-26 06:27:00* Test Item Value Reference Range Interpretation Comments Estimat Glomerular Filtration Rate (test code = 589651645) 11 >60 L Ranges were taken from the National Kidney Disease Education Program and the [facility] Kidney Foundation literature.Reference ranges:60 or greater: Ddwgdo40-03 ( for 3 consecutive months): Chronic kidney disease 15 or less: Kidney failureKnapp Medical CenterGlucose Gboug8348-30-67 06:27:00* Test Item Value Reference Range Interpretation Comments Glucose Level (test code = ZYT1391) 135 74-118 H [facility] CenterCalcium Hzuam6022-76-15 06:27:00* Test Item Value Reference Range Interpretation Comments Calcium Level (test code = 76400-7) 9.3 8.4-10.2 [facility] CenterWhite Blood Wlpor0181-68-86 06:03:00* Test Item Value Reference Range Interpretation Comments White Blood Count (test code = 6690-2) 6.77 4.8-10.8 [facility] CenterRed Blood Yhyzd3627-49-50 06:03:00* Test Item Value Reference Range Interpretation Comments Red Blood Count (test code = 789-8) 2.73 3.6-5.1 L [facility] CenterHemoglobin2020-03-16 06:03:00* Test Item Value Reference Range Interpretation Comments Hemoglobin (test code = 09298-2) 8.6 12.0-16.0 L [facility] CenterHematocrit2020-03-16 06:03:00* Test Item Value Reference Range Interpretation Comments Hematocrit (test code = 4544-3) 28.5 34.2-44.1 L [facility] CenterMean Corpuscular Yigsrw9892-45-63 06:03:00* Test Item Value Reference Range Interpretation Comments Mean Corpuscular Volume (test code = 787-2) 104.4 81-99 H [facility] CenterMean Corpuscular Ddqjwcfnkh1051-73-87 06:03:00* Test Item Value Reference Range Interpretation Comments Mean Corpuscular Hemoglobin (test code = 785-6) 31.5 28-32 [facility] CenterMean Corpuscular Hemoglobin Concent 2019-04-26 06:03:00* Test Item Value Reference Range Interpretation Comments Mean Corpuscular Hemoglobin Concent (test code = 786-4) 30.2 31-35 L [facility] CenterRed Cell Distribution Eamyl9675-00-72 06:03:00* Test Item Value Reference Range Interpretation Comments Red Cell Distribution Width (test code = 45315-6) 15.9 11.7 -14.4 H [facility] CenterPlatelet Jzxdu2528-48-54 06:03:00* Test Item Value Reference Range Interpretation Comments Platelet Count (test code = 777-3) 374 140-360 H [facility] CenterNeutrophils (%) (Auto)2019-04-26 06:03:00 * Test Item Value Reference Range Interpretation Comments Neutrophils (%) (Auto) (test code = 89259-6) 72.0 38.7-80.0 [facility] CenterLymphocytes (%) (Auto)2019-04-26 06:03:00 * Test Item Value Reference Range Interpretation Comments Lymphocytes (%) (Auto) (test code = 736-9) 13.0 18.0-39.1 L [facility] CenterMonocytes (%) (Auto)2019-04-26 06:03:00* Test Item Value Reference Range Interpretation Comments Monocytes (%) (Auto) (test code = 5905-5) 13.7 4.4-11.3 H [facility] CenterEosinophils (%) (Auto)2019-04-26 06:03:00 * Test Item Value Reference Range Interpretation Comments Eosinophils (%) (Auto) (test code = 713-8) 0.3 0.0-6.0 [facility] CenterBasophils (%) (Auto)2019-04-26 06:03:00* Test Item Value Reference Range Interpretation Comments Basophils (%) (Auto) (test code = 706-2) 0.4 0.0-1.0 [facility] CenterIM GRANULOCYTES %2019-04-26 06:03:00* Test Item Value Reference Range Interpretation Comments IM GRANULOCYTES % (test code = IM GRANULOCYTES %) 0.6 0.0- 1.0 [facility] CenterNeutrophils # (Auto)2019-04-26 06:03:00* Test Item Value Reference Range Interpretation Comments Neutrophils # (Auto) (test code = 751-8) 4.9 2.1-6.9 [facility] CenterLymphocytes # (Auto)2019-04-26 06:03:00* Test Item Value Reference Range Interpretation Comments Lymphocytes # (Auto) (test code = 03587-3) 0.9 1.0-3.2 L [facility] CenterMonocytes # (Auto)2019-04-26 06:03:00* Test Item Value Reference Range Interpretation Comments Monocytes # (Auto) (test code = 742-7) 0.9 0.2-0.8 H [facility] CenterEosinophils # (Auto)2019-04-26 06:03:00* Test Item Value Reference Range Interpretation Comments Eosinophils # (Auto) (test code = 711-2) 0.0 0.0-0.4 [facility] CenterBasophils # (Auto)2019-04-26 06:03:00* Test Item Value Reference Range Interpretation Comments Basophils # (Auto) (test code = 704-7) 0.0 0.0-0.1 [facility] CenterAbsolute Immature Granulocyte (auto 2019-04-26 06:03:00* Test Item Value Reference Range Interpretation Comments Absolute Immature Granulocyte (auto (carine t code = Absolute Immature Granulocyte (auto) 0.04 0-0.1 [facility] CenterWhite Blood Lidfq7767-15-33 06:03:00* Test Item Value Reference Range Interpretation Comments White Blood Count (test code = 6690-2) 6.77 4.8-10.8 [facility]Red Blood Pbeyc9999-81-07 06:03:00* Test Item Value Reference Range Interpretation Comments Red Blood Count (test code = 789-8) 2.73 3.6-5.1 L [facility] CenterHemoglobin2020-03-16 06:03:00* Test Item Value Reference Range Interpretation Comments Hemoglobin (test code = 16596-2) 8.6 12.0-16.0 L [facility] CenterHematocrit2020-03-16 06:03:00* Test Item Value Reference Range Interpretation Comments Hematocrit (test code = 4544-3) 28.5 34.2-44.1 L [facility] CenterMean Corpuscular Rfzlzc1988-32-85 06:03:00* Test Item Value Reference Range Interpretation Comments Mean Corpuscular Volume (test code = 787-2) 104.4 81-99 H [facility] CenterMean Corpuscular Olzlkvbhxj5401-48-28 06:03:00* Test Item Value Reference Range Interpretation Comments Mean Corpuscular Hemoglobin (test code = 785-6) 31.5 28-32 [facility] CenterMean Corpuscular Hemoglobin Concent 2019-04-26 06:03:00* Test Item Value Reference Range Interpretation Comments Mean Corpuscular Hemoglobin Concent (test code = 786-4) 30.2 31-35 L [facility] CenterRed Cell Distribution Phzjc2363-11-60 06:03:00* Test Item Value Reference Range Interpretation Comments Red Cell Distribution Width (test code = 71174-0) 15.9 11.7 -14.4 H [facility] CenterPlatelet Weycp9081-92-77 06:03:00* Test Item Value Reference Range Interpretation Comments Platelet Count (test code = 777-3) 374 140-360 H [facility] CenterNeutrophils (%) (Auto)2019-04-26 06:03:00 * Test Item Value Reference Range Interpretation Comments Neutrophils (%) (Auto) (test code = 51514-6) 72.0 38.7-80.0 [facility] CenterLymphocytes (%) (Auto)2019-04-26 06:03:00 * Test Item Value Reference Range Interpretation Comments Lymphocytes (%) (Auto) (test code = 736-9) 13.0 18.0-39.1 L [facility] CenterMonocytes (%) (Auto)2019-04-26 06:03:00* Test Item Value Reference Range Interpretation Comments Monocytes (%) (Auto) (test code = 5905-5) 13.7 4.4-11.3 H [facility] CenterEosinophils (%) (Auto)2019-04-26 06:03:00 * Test Item Value Reference Range Interpretation Comments Eosinophils (%) (Auto) (test code = 713-8) 0.3 0.0-6.0 [facility] CenterBasophils (%) (Auto)2019-04-26 06:03:00* Test Item Value Reference Range Interpretation Comments Basophils (%) (Auto) (test code = 706-2) 0.4 0.0-1.0 [facility] CenterIM GRANULOCYTES %2019-04-26 06:03:00* Test Item Value Reference Range Interpretation Comments IM GRANULOCYTES % (test code = IM GRANULOCYTES %) 0.6 0.0- 1.0 [facility] CenterNeutrophils # (Auto)2019-04-26 06:03:00* Test Item Value Reference Range Interpretation Comments Neutrophils # (Auto) (test code = 751-8) 4.9 2.1-6.9 [facility] CenterLymphocytes # (Auto)2019-04-26 06:03:00* Test Item Value Reference Range Interpretation Comments Lymphocytes # (Auto) (test code = 52913-3) 0.9 1.0-3.2 L [facility] CenterMonocytes # (Auto)2019-04-26 06:03:00* Test Item Value Reference Range Interpretation Comments Monocytes # (Auto) (test code = 742-7) 0.9 0.2-0.8 H [facility] CenterEosinophils # (Auto)2019-04-26 06:03:00* Test Item Value Reference Range Interpretation Comments Eosinophils # (Auto) (test code = 711-2) 0.0 0.0-0.4 [facility] CenterBasophils # (Auto)2019-04-26 06:03:00* Test Item Value Reference Range Interpretation Comments Basophils # (Auto) (test code = 704-7) 0.0 0.0-0.1 [facility] CenterAbsolute Immature Granulocyte (auto 2019-04-26 06:03:00* Test Item Value Reference Range Interpretation Comments Absolute Immature Granulocyte (auto (carine t code = Absolute Immature Granulocyte (auto) 0.04 0-0.1 [facility] CenterLactic Acid Dtglv8056-94-89 16:12:00* Test Item Value Reference Range Interpretation Comments Lactic Acid Level (test code = Lactic Acid Level) 0.7 0.5- 2.0 [facility] CenterLactic Acid Klxgr1429-14-86 16:12:00* Test Item Value Reference Range Interpretation Comments Lactic Acid Level (test code = Lactic Acid Level) 0.7 0.5- 2.0 [facility] CenterCHEST SINGLE (PORTABLE)2019-04-25 11:17:00 [place] [address] Patient Name: YARITZA JOSEPH MR #: [id number] : 1960 Age/Sex: 58/F Req #: [id number] Adm Physician: BRENDAN TSANG MD Ordered by: BRENDAN TSANG MD Report #: [id number] Location: MED/SURG Room/Bed: [facility] Procedure: [id number] DX/CHEST SINGLE (PORTABLE) Exam Date: 04/25/19 Exam [...] 11:22 AM Dictated By: ROSIE TEAGUE MD 112 Transcr ibed By: FRANCISCO J on 04/25/19 112 COPY TO: BRENDAN TSANG MD CT BRAIN DZ9993-39-95 14:22:00 [place] [address] Patient Name: YARITZA JOSEPH MR #: [id number] : 1960 Age/Sex: 58/F Req #: [id number] Adm Physician: BRENDAN TSANG MD Ordered by: BRENDAN TSANG MD Report #: [id number] Location: MED/SURG Room/Bed: 107-1 Procedure: [id number] CT/CT BRAIN WO Exam Date: 04/24/19 Exam [...] 1433 COPY TO: BRENDAN TSANG MD Phosphorus Fttbd2241-87-61 06:31:00* Test Item Value Reference Range Interpretation Comments Phosphorus Level (test code = WXN4850) 6.1 2.3-4.7 H [facility] CenterPhosphorus Xvcoj9749-35-21 06:31:00* Test Item Value Reference Range Interpretation Comments Phosphorus Level (test code = SXV6088) 6.1 2.3-4.7 H [facility] CenterTotal Slowdebay9186-28-91 12:30:00* Test Item Value Reference Range Interpretation Comments Total Bilirubin (test code = 1974-2) 0.6 0.2-1.2 [facility] Nfdvmxzmh2521-49-18 12:30:00* Test Item Value Reference Range Interpretation Comments Total Bilirubin (test code = 1974-2) 0.6 0.2-1.2 [facility] CenterCHEST SINGLE (PORTABLE)2019-04-22 12:23:00 [place] [address] Patient Name: YARITZA JOSEPH MR #: [id number] : 1960 Age/Sex: 58/F Req #: [id number] Adm Physician: BRENDAN TSANG MD Ordered by: SRIRAM HIDALGO DO Report #: [id number] Location: MED/SURG Room/Bed: [facility] Procedure: [id number] D X/CHEST SINGLE (PORTABLE) Exam Date: 04/22/19 [...] TO: SRIRAM HIDALGO DO Activated Partial Thromboplast Actr6085-65-19 11:55:00* Test Item Value Reference Range Interpretation Comments Activated Partial Thromboplast Time (test code = 09595-1) 26.9 23.8-35.5 [facility] CenterActivated Partial Thromboplast Time 2019-04-22 11:55:00* Test Item Value Reference Range Interpretation Comments Activated Partial Thromboplast Time (test code = 26812-1) 26.9 23.8-35.5 [facility] CenterActivated Partial Thromboplast Time 2019-04-22 11:55:00* Test Item Value Reference Range Interpretation Comments Activated Partial Thromboplast Time (test code = 31184-2) 26.9 23.8-35.5 [facility] CenterProthrombin Pbdp5360-44-27 11:40:00* Test Item Value Reference Range Interpretation Comments Prothrombin Time (test code = 5902-2) 13.4 11.9-14.5 [facility] CenterProthromb Time International Ratio 2019-04-22 11:40:00* Test Item Value Reference Range Interpretation Comments Prothromb Time International Ratio (test code = 6301-6) 0.96 Oral Anticoagulant Therapy INR Values:1. Low Intensity Therapy 1.5 - 2.02 . Moderate Intensity Therapy 2.0 - 3.03. High Intensity Therapy(1) 2.5 - 3. 54. High Intensity Therapy(2) 3.0 - 4.05. Panic Value INR > 5.0 [facility] CenterProthrombin Ovem9903-49-64 11:40:00* Test Item Value Reference Range Interpretation Comments Prothrombin Time (test code = 5902-2) 13.4 11.9-14.5 [facility] CenterProthromb Time International Ratio 2019-04-22 11:40:00* Test Item Value Reference Range Interpretation Comments Prothromb Time International Ratio (test code = 6301-6) 0.96 Oral Anticoagulant Therapy INR Values:1. Low Intensity Therapy 1.5 - 2.02 . Moderate Intensity Therapy 2.0 - 3.03. High Intensity Therapy(1) 2.5 - 3. 54. High Intensity Therapy(2) 3.0 - 4.05. Panic Value INR > 5.0 [facility] CenterAspartate Amino Transf (AST/SGOT) 2019-04-22 11:39:00* Test Item Value Reference Range Interpretation Comments Aspartate Amino Transf (AST/SGOT) (test code = Aspartate Amino Transf (AST/SGOT)) 16 5-34 [facility] CenterAlanine Aminotransferase (ALT/SGPT) 2019-04-22 11:39:00* Test Item Value Reference Range Interpretation Comments Alanine Aminotransferase (ALT/SGPT) (test code = 1742-6) 11 0-55 [facility] CenterTotal Avsdeta5879-67-81 11:39:00* Test Item Value Reference Range Interpretation Comments Total Protein (test code = 2885-2) 6.4 6.5-8.1 L [facility] CenterAlbumin2020-03-12 11:39:00* Test Item Value Reference Range Interpretation Comments Albumin (test code = 1751-7) 3.2 3.5-5.0 L [facility] CenterGlobulin2020-03-12 11:39:00* Test Item Value Reference Range Interpretation Comments Globulin (test code = 54819-2) 3.2 2.3-3.5 [facility] CenterAlbumin/Globulin Mtvdk9948-28-59 11:39:00 * Test Item Value Reference Range Interpretation Comments Albumin/Globulin Ratio (test code = 1759-0) 1.0 0.8-2.0 [facility] CenterAlkaline Aevufugdkzp7529-41-69 11:39:00* Test Item Value Reference Range Interpretation Comments Alkaline Phosphatase (test code = 6768-6) 89 40-150 [facility] CenterAspartate Amino Transf (AST/SGOT) 2019-04-22 11:39:00* Test Item Value Reference Range Interpretation Comments Aspartate Amino Transf (AST/SGOT) (test code = Aspartate Amino Transf (AST/SGOT)) 16 5-34 [facility] CenterAlanine Aminotransferase (ALT/SGPT) 2019-04-22 11:39:00* Test Item Value Reference Range Interpretation Comments Alanine Aminotransferase (ALT/SGPT) (test code = 1742-6) 11 0-55 [facility] CenterTotal Cskedoh9806-95-20 11:39:00* Test Item Value Reference Range Interpretation Comments Total Protein (test code = 2885-2) 6.4 6.5-8.1 L [facility] CenterAlbumin2020-03-12 11:39:00* Test Item Value Reference Range Interpretation Comments Albumin (test code = 1751-7) 3.2 3.5-5.0 L [facility] CenterGlobulin2020-03-12 11:39:00* Test Item Value Reference Range Interpretation Comments Globulin (test code = 99657-1) 3.2 2.3-3.5 [facility] CenterAlbumin/Globulin Efjzo7796-44-48 11:39:00 * Test Item Value Reference Range Interpretation Comments Albumin/Globulin Ratio (test code = 1759-0) 1.0 0.8-2.0 [facility] CenterAlkaline Ruqchnfowgg0982-44-64 11:39:00* Test Item Value Reference Range Interpretation Comments Alkaline Phosphatase (test code = 6768-6) 89 40-150 [facility] CenterCT HIP LEFT RP0022-56-74 10:41:00 [facility] [address] [place] [address] Patient Name: YARITZA JOSEPH MR #: [id number] : 1960 Age/Sex: 58/F Req #: [id number] Adm Physician: Ordered by: SRIRAM HIDALGO DO Report #: [id number] Location: ER Room/Bed: Procedure: [id number] CT/ CT HIP LEFT WO Exam Date: [...] HIP LEFT 2-3 VW (+/- PELVIS)2019-04-22 09:26:00 [place] [address] Patient Name: YARITZA JOSEPH MR #: [id number] : 1960 Age/Sex: 58/F Req #: [id number] Adm Physician: Ordered by: SRIRAM HIDALGO DO Report #: [id number] Location: ER Room/Bed: Procedure: [id number] DX/ HIP LEFT 2-3 VW (+/- PELVIS) [...] 0 Transcribed By: FRANCISCO J on 04/22/19930 COMMERCIAL FINANCE ANALYST Y TO: SRIRAM HIDALGO DO Creatine Kinase DN3623-34-49 22:18:00* Test Item Value Reference Range Interpretation Comments Creatine Kinase MB (test code = 77031-7) 0.70 0-5.0 [facility] CenterTrcontinuecare hospitaln U8432-19-47 22:18:00* Test Item Value Reference Range Interpretation Comments Troponin I (test code = GFR7788) 0.029 0-0.300 [facility] CenterCreatine Kinase GP4886-61-26 22:18:00* Test Item Value Reference Range Interpretation Comments Creatine Kinase MB (test code = 46717-8) 0.70 0-5.0 [facility] CenterTrcontinuecare hospitaln Q1081-45-30 22:18:00* Test Item Value Reference Range Interpretation Comments Troponin I (test code = UPJ0795) 0.029 0-0.300 [facility] CenterCreatine Kinase LH1712-12-55 22:18:00* Test Item Value Reference Range Interpretation Comments Creatine Kinase MB (test code = 31686-9) 0.70 0-5.0 [facility] CenterTroponin J2094-92-47 22:18:00* Test Item Value Reference Range Interpretation Comments Troponin I (test code = HMR3213) 0.029 0-0.300 [facility] CenterB-Type Natriuretic Pmkrucy4032-65-38 21:59:00* Test Item Value Reference Range Interpretation Comments B-Type Natriuretic Peptide (test code = 04260-0) 1651.3 0-100 H [facility] CenterB-Type Natriuretic Oelsrxj8460-86-02 21:59:00* Test Item Value Reference Range Interpretation Comments B-Type Natriuretic Peptide (test code = 03605-3) 1651.3 0-100 H [facility] CenterB-Type Natriuretic Zxrkfcp0836-75-52 21:59:00* Test Item Value Reference Range Interpretation Comments B-Type Natriuretic Peptide (test code = 26130-8) 1651.3 0-100 H [facility] Center[facility] Gvnhb0513-21-88 21:57:00* Test Item Value Reference Range Interpretation Comments Sodium Level (test code = 2951-2) 141 136-145 [facility] CenterPotassium Rjdbs6240-17-40 21:57:00* Test Item Value Reference Range Interpretation Comments Potassium Level (test code = 2823-3) 3.0 3.5-5.1 L [facility] CenterChloride Etixu3816-56-32 21:57:00* Test Item Value Reference Range Interpretation Comments Chloride Level (test code = 2075-0) 98 98-107 [facility] CenterCarbon Dioxide Dhpuf6908-95-35 21:57:00* Test Item Value Reference Range Interpretation Comments Carbon Dioxide Level (test code = 2028-9) 31 22-29 H [facility] CenterAnion Vhw6969-86-52 21:57:00* Test Item Value Reference Range Interpretation Comments Anion Gap (test code = 88135-4) 15.0 8-16 [facility] CenterBlood Urea Dnftttjk3858-58-20 21:57:00* Test Item Value Reference Range Interpretation Comments Blood Urea Nitrogen (test code = 3094-0) 14 7-26 [facility] CenterCreatinine2020-02-24 21:57:00* Test Item Value Reference Range Interpretation Comments Creatinine (test code = 2160-0) 2.64 0.57-1.11 H [facility] CenterBUN/Creatinine Tpyti2954-67-52 21:57:00* Test Item Value Reference Range Interpretation Comments BUN/Creatinine Ratio (test code = 3097-3) 5 6-25 L [facility] CenterEstimat Glomerular Filtration Rate 2019-04-05 21:57:00* Test Item Value Reference Range Interpretation Comments Estimat Glomerular Filtration Rate (test code = 087813362) 19 >60 L Ranges were taken from the National Kidney Disease Education Program and the [facility] literature.Reference ranges:60 or greater: Mqukzq47-28 ( for 3 consecutive months): Chronic kidney disease 15 or less: Kidney failureKnapp Medical CenterGlucose Uprfx0698-99-10 21:57:00* Test Item Value Reference Range Interpretation Comments Glucose Level (test code = YSP6205) 76 74-118 [facility] CenterCalcium Tyekf4402-16-18 21:57:00* Test Item Value Reference Range Interpretation Comments Calcium Level (test code = 53372-8) 9.3 8.4-10.2 [facility] CenterTotal Fxbxsbcnu9367-58-94 21:57:00* Test Item Value Reference Range Interpretation Comments Total Bilirubin (test code = 1975-2) 0.8 0.2-1.2 [facility] CenterAspartate Amino Transf (AST/SGOT) 2019-04-05 21:57:00* Test Item Value Reference Range Interpretation Comments Aspartate Amino Transf (AST/SGOT) (test code = Aspartate Amino Transf (AST/SGOT)) 8 5-34 [facility] CenterAlanine Aminotransferase (ALT/SGPT) 2019-04-05 21:57:00* Test Item Value Reference Range Interpretation Comments Alanine Aminotransferase (ALT/SGPT) (test code = 1742-6) 7 0-55 [facility] CenterTotal Kujyqtm2205-35-97 21:57:00* Test Item Value Reference Range Interpretation Comments Total Protein (test code = 2885-2) 6.7 6.5-8.1 [facility] CenterAlbumin2020-02-24 21:57:00* Test Item Value Reference Range Interpretation Comments Albumin (test code = 1751-7) 3.4 3.5-5.0 L [facility] CenterGlobulin2020-02-24 21:57:00* Test Item Value Reference Range Interpretation Comments Globulin (test code = 43521-2) 3.3 2.3-3.5 [facility] CenterAlbumin/Globulin Fkzuf2220-26-91 21:57:00 * Test Item Value Reference Range Interpretation Comments Albumin/Globulin Ratio (test code = 1759-0) 1.0 0.8-2.0 [facility] CenterAlkaline Acpozfarher1258-19-38 21:57:00* Test Item Value Reference Range Interpretation Comments Alkaline Phosphatase (test code = 6768-6) 103 40-150 [facility] CenterCreatine Wqzehb7060-52-16 21:57:00* Test Item Value Reference Range Interpretation Comments Creatine Kinase (test code = 2157-6) 20 29-168 L [facility] CenterCreatine Xypumy0464-19-27 21:57:00* Test Item Value Reference Range Interpretation Comments Creatine Kinase (test code = 2157-6) 20 29-168 L [facility] CenterCreatine Rdrbxq7403-84-43 21:57:00* Test Item Value Reference Range Interpretation Comments Creatine Kinase (test code = 2157-6) 20 29-168 L [facility] CenterProthrombin Xcqo6189-36-09 21:51:00* Test Item Value Reference Range Interpretation Comments Prothrombin Time (test code = 5902-2) 14.2 11.9-14.5 [facility] CenterProthromb Time International Ratio 2019-04-05 21:51:00* Test Item Value Reference Range Interpretation Comments Prothromb Time International Ratio (test code = 6301-6) 1.04 Oral Anticoagulant Therapy INR Values:1. Low Intensity Therapy 1.5 - 2.02 . Moderate Intensity Therapy 2.0 - 3.03. High Intensity Therapy(1) 2.5 - 3. 54. High Intensity Therapy(2) 3.0 - 4.05. Panic Value INR > 5.0 [facility] CenterActivated Partial Thromboplast Time 2019-04-05 21:51:00* Test Item Value Reference Range Interpretation Comments Activated Partial Thromboplast Time (test code = 53970-5) 31.9 23.8-35.5 [facility] CenterWhite Blood Hguok9708-30-93 21:38:00* Test Item Value Reference Range Interpretation Comments White Blood Count (test code = 6690-2) 6.28 4.8-10.8 [facility] CenterRed Blood Gaixd6271-88-11 21:38:00* Test Item Value Reference Range Interpretation Comments Red Blood Count (test code = 789-8) 3.45 3.6-5.1 L [facility] CenterHemoglobin2020-02-24 21:38:00* Test Item Value Reference Range Interpretation Comments Hemoglobin (test code = 96931-5) 11.0 12.0-16.0 L [facility] CenterHematocrit2020-02-24 21:38:00* Test Item Value Reference Range Interpretation Comments Hematocrit (test code = 4544-3) 33.8 34.2-44.1 L [facility] CenterMean Corpuscular Mupodi2319-20-05 21:38:00* Test Item Value Reference Range Interpretation Comments Mean Corpuscular Volume (test code = 787-2) 98.0 81-99 [facility] CenterMean Corpuscular Immqihsmwq2060-57-76 21:38:00* Test Item Value Reference Range Interpretation Comments Mean Corpuscular Hemoglobin (test code = 785-6) 31.9 28-32 [facility] CenterMean Corpuscular Hemoglobin Concent 2019-04-05 21:38:00* Test Item Value Reference Range Interpretation Comments Mean Corpuscular Hemoglobin Concent (test code = 786-4) 32.5 31-35 [facility] CenterRed Cell Distribution Jibvz0114-04-19 21:38:00* Test Item Value Reference Range Interpretation Comments Red Cell Distribution Width (test code = 45501-8) 15.6 11.7 -14.4 H [facility] CenterPlatelet Rtdru9603-06-50 21:38:00* Test Item Value Reference Range Interpretation Comments Platelet Count (test code = 777-3) 347 140-360 [facility] CenterNeutrophils (%) (Auto)2019-04-05 21:38:00 * Test Item Value Reference Range Interpretation Comments Neutrophils (%) (Auto) (test code = 71390-3) 74.4 38.7-80.0 [facility] CenterLymphocytes (%) (Auto)2019-04-05 21:38:00 * Test Item Value Reference Range Interpretation Comments Lymphocytes (%) (Auto) (test code = 736-9) 12.1 18.0-39.1 L [facility] CenterMonocytes (%) (Auto)2019-04-05 21:38:00* Test Item Value Reference Range Interpretation Comments Monocytes (%) (Auto) (test code = 5905-5) 11.6 4.4-11.3 H [facility] CenterEosinophils (%) (Auto)2019-04-05 21:38:00 * Test Item Value Reference Range Interpretation Comments Eosinophils (%) (Auto) (test code = 713-8) 1.3 0.0-6.0 [facility] CenterBasophils (%) (Auto)2019-04-05 21:38:00* Test Item Value Reference Range Interpretation Comments Basophils (%) (Auto) (test code = 706-2) 0.3 0.0-1.0 [facility] CenterIM GRANULOCYTES %2019-04-05 21:38:00* Test Item Value Reference Range Interpretation Comments IM GRANULOCYTES % (test code = IM GRANULOCYTES %) 0.3 0.0- 1.0 [facility] CenterNeutrophils # (Auto)2019-04-05 21:38:00* Test Item Value Reference Range Interpretation Comments Neutrophils # (Auto) (test code = 751-8) 4.7 2.1-6.9 [facility] CenterLymphocytes # (Auto)2019-04-05 21:38:00* Test Item Value Reference Range Interpretation Comments Lymphocytes # (Auto) (test code = 50909-1) 0.8 1.0-3.2 L [facility] CenterMonocytes # (Auto)2019-04-05 21:38:00* Test Item Value Reference Range Interpretation Comments Monocytes # (Auto) (test code = 742-7) 0.7 0.2-0.8 [facility] CenterEosinophils # (Auto)2019-04-05 21:38:00* Test Item Value Reference Range Interpretation Comments Eosinophils # (Auto) (test code = 711-2) 0.1 0.0-0.4 [facility] CenterBasophils # (Auto)2019-04-05 21:38:00* Test Item Value Reference Range Interpretation Comments Basophils # (Auto) (test code = 704-7) 0.0 0.0-0.1 [facility] CenterAbsolute Immature Granulocyte (auto 2019-04-05 21:38:00* Test Item Value Reference Range Interpretation Comments Absolute Immature Granulocyte (auto (carine t code = Absolute Immature Granulocyte (auto) 0.02 0-0.1 [facility] CenterCHEST SINGLE (NOT PORTABLE)2019-04-05 19:12:00 [place] [address] Patient Name: YARITZA JOSEPH MR #: [id number] : 1960 Age/Sex: 58/F Req #: [id number] Adm Physician: Ordered by: KARSTEN HU BOARD LINER OPERATOR Report #: [id number] Location: ER Room/Bed: Procedure: [id number] DX/CHEST SINGLE (NOT PORTABLE) Exam Date: Exam [...] LIRA MD 13 COPY TO: EWA HU BOARD LINER OPERATOR Creatine Kinase TV8112-41-47 12:03:00* Test Item Value Reference Range Interpretation Comments Creatine Kinase MB (test code = 90317-1) 0.70 0-5.0 [facility] CenterTroponin U2858-18-44 12:03:00* Test Item Value Reference Range Interpretation Comments Troponin I (test code = AWP9678) 0.009 0-0.300 [facility] Centerodium Cruyh4122-97-17 11:54:00* Test Item Value Reference Range Interpretation Comments Sodium Level (test code = 2951-2) 137 136-145 [facility] CenterPotassium Vjdcx5427-87-17 11:54:00* Test Item Value Reference Range Interpretation Comments Potassium Level (test code = 2823-3) 4.1 3.5-5.1 [facility] CenterChloride Jpxsj6899-73-86 11:54:00* Test Item Value Reference Range Interpretation Comments Chloride Level (test code = 2075-0) 101 98-107 [facility] CenterCarbon Dioxide Pdjnq9548-10-15 11:54:00* Test Item Value Reference Range Interpretation Comments Carbon Dioxide Level (test code = 2028-9) 23 22-29 [facility] CenterAnion Auq7020-46-38 11:54:00* Test Item Value Reference Range Interpretation Comments Anion Gap (test code = 32869-7) 17.1 8-16 H [facility] CenterBlood Urea Zhvzrzas9794-74-36 11:54:00* Test Item Value Reference Range Interpretation Comments Blood Urea Nitrogen (test code = 3094-0) 42 7-26 H [facility] CenterCreatinine2020-01-27 11:54:00* Test Item Value Reference Range Interpretation Comments Creatinine (test code = 2160-0) 6.78 0.57-1.11 H [facility] CenterBUN/Creatinine Alwxm6710-59-92 11:54:00* Test Item Value Reference Range Interpretation Comments BUN/Creatinine Ratio (test code = 3097-3) 6 6-25 [facility] CenterEstimat Glomerular Filtration Rate 2019-03-08 11:54:00* Test Item Value Reference Range Interpretation Comments Estimat Glomerular Filtration Rate (test code = 885527925) 6 >60 L Ranges were taken from the National Kidney Disease Education Program and the [facility] literature.Reference ranges:60 or greater: Ajilvu68-75 ( for 3 consecutive months): Chronic kidney disease 15 or less: Kidney failureKnapp Medical CenterGlucose Ojdhx7617-24-95 11:54:00* Test Item Value Reference Range Interpretation Comments Glucose Level (test code = USY1731) 278 74-118 H [facility] CenterCalcium Tflzc9279-42-05 11:54:00* Test Item Value Reference Range Interpretation Comments Calcium Level (test code = 71813-2) 9.8 8.4-10.2 [facility] CenterTotal Fiihiagqh4960-34-11 11:54:00* Test Item Value Reference Range Interpretation Comments Total Bilirubin (test code = 1975-2) 0.9 0.2-1.2 [facility] CenterAspartate Amino Transf (AST/SGOT) 2019-03-08 11:54:00* Test Item Value Reference Range Interpretation Comments Aspartate Amino Transf (AST/SGOT) (test code = Aspartate Amino Transf (AST/SGOT)) 11 5-34 [facility] CenterAlanine Aminotransferase (ALT/SGPT) 2019-03-08 11:54:00* Test Item Value Reference Range Interpretation Comments Alanine Aminotransferase (ALT/SGPT) (test code = 1742-6) 12 0-55 [facility] Xmrvlla7278-42-55 11:54:00* Test Item Value Reference Range Interpretation Comments Total Protein (test code = 2885-2) 6.5 6.5-8.1 [facility] CenterAlbumin2020-01-27 11:54:00* Test Item Value Reference Range Interpretation Comments Albumin (test code = 1751-7) 3.6 3.5-5.0 [facility] CenterGlobulin2020-01-27 11:54:00* Test Item Value Reference Range Interpretation Comments Globulin (test code = 57207-8) 2.9 2.3-3.5 [facility] CenterAlbumin/Globulin Zoflu6228-05-42 11:54:00 * Test Item Value Reference Range Interpretation Comments Albumin/Globulin Ratio (test code = 1759-0) 1.2 0.8-2.0 [facility] CenterAlkaline Xtnnfhklsxo0913-42-51 11:54:00* Test Item Value Reference Range Interpretation Comments Alkaline Phosphatase (test code = 6768-6) 96 40-150 [facility] CenterCreatine Kmgtan7558-16-79 11:54:00* Test Item Value Reference Range Interpretation Comments Creatine Kinase (test code = 2157-6) 22 29-168 L [facility] CenterWhite Blood Qtslr8087-02-19 11:41:00* Test Item Value Reference Range Interpretation Comments White Blood Count (test code = 6690-2) 6.43 4.8-10.8 [facility] CenterRed Blood Wssvg2736-45-40 11:41:00* Test Item Value Reference Range Interpretation Comments Red Blood Count (test code = 789-8) 3.29 3.6-5.1 L [facility] CenterHemoglobin2020-01-27 11:41:00* Test Item Value Reference Range Interpretation Comments Hemoglobin (test code = 40142-6) 11.0 12.0-16.0 L [facility] CenterHematocrit2020-01-27 11:41:00* Test Item Value Reference Range Interpretation Comments Hematocrit (test code = 4544-3) 32.8 34.2-44.1 L [facility] CenterMean Corpuscular Ujhtcn1053-49-12 11:41:00* Test Item Value Reference Range Interpretation Comments Mean Corpuscular Volume (test code = 787-2) 99.7 81-99 H [facility] CenterMean Corpuscular Fsnbadseen1441-41-81 11:41:00* Test Item Value Reference Range Interpretation Comments Mean Corpuscular Hemoglobin (test code = 785-6) 33.4 28-32 H [facility] CenterMean Corpuscular Hemoglobin Concent 2019-03-08 11:41:00* Test Item Value Reference Range Interpretation Comments Mean Corpuscular Hemoglobin Concent (test code = 786-4) 33.5 31-35 [facility] CenterRed Cell Distribution Niimu3287-82-14 11:41:00* Test Item Value Reference Range Interpretation Comments Red Cell Distribution Width (test code = 37329-0) 15.1 11.7 -14.4 H [facility] CenterPlatelet Ziqyi0059-76-07 11:41:00* Test Item Value Reference Range Interpretation Comments Platelet Count (test code = 777-3) 248 140-360 [facility] CenterNeutrophils (%) (Auto)2019-03-08 11:41:00 * Test Item Value Reference Range Interpretation Comments Neutrophils (%) (Auto) (test code = 90678-0) 77.2 38.7-80.0 [facility] CenterLymphocytes (%) (Auto)2019-03-08 11:41:00 * Test Item Value Reference Range Interpretation Comments Lymphocytes (%) (Auto) (test code = 736-9) 9.0 18.0-39.1 L [facility] CenterMonocytes (%) (Auto)2019-03-08 11:41:00* Test Item Value Reference Range Interpretation Comments Monocytes (%) (Auto) (test code = 5905-5) 12.0 4.4-11.3 H [facility] CenterEosinophils (%) (Auto)2019-03-08 11:41:00 * Test Item Value Reference Range Interpretation Comments Eosinophils (%) (Auto) (test code = 713-8) 1.2 0.0-6.0 [facility] CenterBasophils (%) (Auto)2019-03-08 11:41:00* Test Item Value Reference Range Interpretation Comments Basophils (%) (Auto) (test code = 706-2) 0.3 0.0-1.0 [facility] CenterIM GRANULOCYTES %2019-03-08 11:41:00* Test Item Value Reference Range Interpretation Comments IM GRANULOCYTES % (test code = IM GRANULOCYTES %) 0.3 0.0- 1.0 [facility] CenterNeutrophils # (Auto)2019-03-08 11:41:00* Test Item Value Reference Range Interpretation Comments Neutrophils # (Auto) (test code = 751-8) 5.0 2.1-6.9 [facility] CenterLymphocytes # (Auto)2019-03-08 11:41:00* Test Item Value Reference Range Interpretation Comments Lymphocytes # (Auto) (test code = 21248-8) 0.6 1.0-3.2 L [facility] CenterMonocytes # (Auto)2019-03-08 11:41:00* Test Item Value Reference Range Interpretation Comments Monocytes # (Auto) (test code = 742-7) 0.8 0.2-0.8 [facility] CenterEosinophils # (Auto)2019-03-08 11:41:00* Test Item Value Reference Range Interpretation Comments Eosinophils # (Auto) (test code = 711-2) 0.1 0.0-0.4 [facility] CenterBasophils # (Auto)2019-03-08 11:41:00* Test Item Value Reference Range Interpretation Comments Basophils # (Auto) (test code = 704-7) 0.0 0.0-0.1 [facility] CenterAbsolute Immature Granulocyte (auto 2019-03-08 11:41:00* Test Item Value Reference Range Interpretation Comments Absolute Immature Granulocyte (auto (carine t code = Absolute Immature Granulocyte (auto) 0.02 0-0.1 [facility] CenterCHEST SINGLE (PORTABLE)2019-03-08 11:20:00 [place] [address] Patient Name: YARITZA JOSEPH MR #: [id number] : 1960 Age/Sex: 58/F Req #: [id number] Adm Physician: Ordered by: HAL BUI DO Report #: [id number] Location: ER Room/Bed: Procedure: [id number] DX/CHEST SINGLE (PORTABLE) Exam Date: 03/08/19 Exam [...] 11:21 AM Dictated By: VARGHESE MAHAJAN MD 112 Transcribed By: FRANCISCO J on 03/08/19 1121 COPY TO: HAL BUI DO CHEST SINGLE (PORTABLE)2018-12-21 08:36:00 [place] [address] Patient Name: YARITZA JOSEPH MR #: [id number] : 1960 Age/Sex: 58/F Req #: [id number] Adm Physician: Ordered by: HAL BUI DO Report #: [id number] Location: ER Room/Bed: Procedure: [id number] DX/CHEST SINGLE (PORTABLE) Exam Date: 12/21/18 Exam [...] SRIRAM ARTHUR MD 6 COPY TO: Alessia BUI, Creatine Kinase RQ7642-04-00 07:14:00* Test Item Value Reference Range Interpretation Comments Creatine Kinase MB (test code = 05820-6) 0.90 0-5.0 [facility] CenterTroponin M1696-08-29 07:14:00* Test Item Value Reference Range Interpretation Comments Troponin I (test code = CHL2685) < 0.001 0-0.300 [facility] Wgnqi4998-76-26 07:08:00* Test Item Value Reference Range Interpretation Comments Sodium Level (test code = 2951-2) 137 136-145 [facility] CenterPotassium Aqwsz0327-01-60 07:08:00* Test Item Value Reference Range Interpretation Comments Potassium Level (test code = 2823-3) 5.0 3.5-5.1 [facility] CenterChloride Mhwzr7231-47-50 07:08:00* Test Item Value Reference Range Interpretation Comments Chloride Level (test code = 2075-0) 103 98-107 [facility] CenterCarbon Dioxide Phyun2506-24-96 07:08:00* Test Item Value Reference Range Interpretation Comments Carbon Dioxide Level (test code = 2028-9) 16 22-29 L [facility] CenterAnion Yyi3741-56-12 07:08:00* Test Item Value Reference Range Interpretation Comments Anion Gap (test code = 05357-1) 23.0 8-16 H [facility] CenterBlood Urea Qbqwzzal9396-99-11 07:08:00* Test Item Value Reference Range Interpretation Comments Blood Urea Nitrogen (test code = 3094-0) 84 7-26 H [facility] CenterCreatinine2019-11-11 07:08:00* Test Item Value Reference Range Interpretation Comments Creatinine (test code = 2160-0) 8.34 0.57-1.11 H [facility] CenterBUN/Creatinine Smzry4229-80-29 07:08:00* Test Item Value Reference Range Interpretation Comments BUN/Creatinine Ratio (test code = 3097-3) 10 6-25 [facility] CenterEstimat Glomerular Filtration Rate 2018-12-21 07:08:00* Test Item Value Reference Range Interpretation Comments Estimat Glomerular Filtration Rate (test code = 331155081) 5 >60 L Ranges were taken from the National Kidney Disease Education Program and the [facility] Foundation literature.Reference ranges:60 or greater: Dajqlk96-21 ( for 3 consecutive months): Chronic kidney disease 15 or less: Kidney failureKnapp Medical CenterGlucose Uznba2788-45-40 07:08:00* Test Item Value Reference Range Interpretation Comments Glucose Level (test code = WIE3986) 216 74-118 H [facility] CenterCalcium Fviuk8647-86-50 07:08:00* Test Item Value Reference Range Interpretation Comments Calcium Level (test code = 40024-9) 9.8 8.4-10.2 [facility] CenterTotal Lzoioloev3818-95-97 07:08:00* Test Item Value Reference Range Interpretation Comments Total Bilirubin (test code = 1975-2) 0.7 0.2-1.2 [facility] CenterAspartate Amino Transf (AST/SGOT) 2018-12-21 07:08:00* Test Item Value Reference Range Interpretation Comments Aspartate Amino Transf (AST/SGOT) (test code = Aspartate Amino Transf (AST/SGOT)) 15 5-34 [facility] CenterAlanine Aminotransferase (ALT/SGPT) 2018-12-21 07:08:00* Test Item Value Reference Range Interpretation Comments Alanine Aminotransferase (ALT/SGPT) (test code = 1742-6) 14 0-55 [facility] CenterTotal Bandtun5569-96-23 07:08:00* Test Item Value Reference Range Interpretation Comments Total Protein (test code = 2885-2) 6.6 6.5-8.1 [facility] CenterAlbumin2019-11-11 07:08:00* Test Item Value Reference Range Interpretation Comments Albumin (test code = 1751-7) 3.7 3.5-5.0 [facility] CenterGlobulin2019-11-11 07:08:00* Test Item Value Reference Range Interpretation Comments Globulin (test code = 55953-1) 2.9 2.3-3.5 [facility] CenterAlbumin/Globulin Nffiw3184-77-91 07:08:00 * Test Item Value Reference Range Interpretation Comments Albumin/Globulin Ratio (test code = 1759-0) 1.3 0.8-2.0 [facility] CenterAlkaline Eumipsrjvwu2847-69-21 07:08:00* Test Item Value Reference Range Interpretation Comments Alkaline Phosphatase (test code = 6768-6) 110 40-150 [facility] CenterB-Type Natriuretic Xdphaus4965-21-15 07:08:00* Test Item Value Reference Range Interpretation Comments B-Type Natriuretic Peptide (test code = 33004-1) 2357.9 0-100 H [facility] CenterCreatine Vboqxl2819-98-36 07:08:00* Test Item Value Reference Range Interpretation Comments Creatine Kinase (test code = 2157-6) 25 29-168 L [facility] CenterB-Type Natriuretic Yxjcpnv5353-28-52 07:08:00* Test Item Value Reference Range Interpretation Comments B-Type Natriuretic Peptide (test code = 79392-5) 2357.9 0-100 H [facility] CenterWhite Blood Rehpk2055-51-28 06:59:00* Test Item Value Reference Range Interpretation Comments White Blood Count (test code = 6690-2) 8.03 4.8-10.8 [facility] CenterRed Blood Nfwhw2862-41-71 06:59:00* Test Item Value Reference Range Interpretation Comments Red Blood Count (test code = 789-8) 3.14 3.6-5.1 L [facility] CenterHemoglobin2019-11-11 06:59:00* Test Item Value Reference Range Interpretation Comments Hemoglobin (test code = 37506-3) 10.7 12.0-16.0 L [facility] CenterHematocrit2019-11-11 06:59:00* Test Item Value Reference Range Interpretation Comments Hematocrit (test code = 4544-3) 31.4 34.2-44.1 L [facility] CenterMean Corpuscular Crwajd6031-44-86 06:59:00* Test Item Value Reference Range Interpretation Comments Mean Corpuscular Volume (test code = 787-2) 100.0 81-99 H [facility] CenterMean Corpuscular Jhasnfvykc1914-58-10 06:59:00* Test Item Value Reference Range Interpretation Comments Mean Corpuscular Hemoglobin (test code = 785-6) 34.1 28-32 H [facility] CenterMean Corpuscular Hemoglobin Concent 2018-12-21 06:59:00* Test Item Value Reference Range Interpretation Comments Mean Corpuscular Hemoglobin Concent (test code = 786-4) 34.1 31-35 [facility] CenterRed Cell Distribution Obetl2628-57-97 06:59:00* Test Item Value Reference Range Interpretation Comments Red Cell Distribution Width (test code = 20114-5) 12.9 11.7 -14.4 [facility] CenterPlatelet Oiqqy8370-66-30 06:59:00* Test Item Value Reference Range Interpretation Comments Platelet Count (test code = 777-3) 205 140-360 [facility] CenterNeutrophils (%) (Auto)2018-12-21 06:59:00 * Test Item Value Reference Range Interpretation Comments Neutrophils (%) (Auto) (test code = 56780-2) 71.5 38.7-80.0 [facility] CenterLymphocytes (%) (Auto)2018-12-21 06:59:00 * Test Item Value Reference Range Interpretation Comments Lymphocytes (%) (Auto) (test code = 736-9) 16.1 18.0-39.1 L [facility] CenterMonocytes (%) (Auto)2018-12-21 06:59:00* Test Item Value Reference Range Interpretation Comments Monocytes (%) (Auto) (test code = 5905-5) 10.6 4.4-11.3 [facility] CenterEosinophils (%) (Auto)2018-12-21 06:59:00 * Test Item Value Reference Range Interpretation Comments Eosinophils (%) (Auto) (test code = 713-8) 0.9 0.0-6.0 [facility] CenterBasophils (%) (Auto)2018-12-21 06:59:00* Test Item Value Reference Range Interpretation Comments Basophils (%) (Auto) (test code = 706-2) 0.4 0.0-1.0 [facility] CenterIM GRANULOCYTES %2018-12-21 06:59:00* Test Item Value Reference Range Interpretation Comments IM GRANULOCYTES % (test code = IM GRANULOCYTES %) 0.5 0.0- 1.0 [facility] CenterNeutrophils # (Auto)2018-12-21 06:59:00* Test Item Value Reference Range Interpretation Comments Neutrophils # (Auto) (test code = 751-8) 5.8 2.1-6.9 [facility] CenterLymphocytes # (Auto)2018-12-21 06:59:00* Test Item Value Reference Range Interpretation Comments Lymphocytes # (Auto) (test code = 12952-1) 1.3 1.0-3.2 [facility] CenterMonocytes # (Auto)2018-12-21 06:59:00* Test Item Value Reference Range Interpretation Comments Monocytes # (Auto) (test code = 742-7) 0.9 0.2-0.8 H [facility] CenterEosinophils # (Auto)2018-12-21 06:59:00* Test Item Value Reference Range Interpretation Comments Eosinophils # (Auto) (test code = 711-2) 0.1 0.0-0.4 [facility] CenterBasophils # (Auto)2018-12-21 06:59:00* Test Item Value Reference Range Interpretation Comments Basophils # (Auto) (test code = 704-7) 0.0 0.0-0.1 [facility] CenterAbsolute Immature Granulocyte (auto 2018-12-21 06:59:00* Test Item Value Reference Range Interpretation Comments Absolute Immature Granulocyte (auto (carine t code = Absolute Immature Granulocyte (auto) 0.04 0-0.1 [facility] CenterArtermarietta [facility] Blood zA1738-06-65 06:52:00* Test Item Value Reference Range Interpretation Comments Arterial Blood pH (test code = 2744-1) 7.37 7.31-7.41 [facility] CenterArterial Blood Partial Pressure CO2 2018-12-21 06:52:00* Test Item Value Reference Range Interpretation Comments Arterial Blood Partial Pressure CO2 (test code = 2018-09) 25 41-51 L [facility] CenterArterial Blood Partial Pressure O2 2018-12-21 06:52:00* Test Item Value Reference Range Interpretation Comments Arterial Blood Partial Pressure O2 (test code = 2018-09) 103 80-105 [facility] Blood KAP98407-37-83 06:52:00* Test Item Value Reference Range Interpretation Comments Arterial Blood HCO3 (test code = 1960-4) 15 23-28 [facility] Base Chhgig9839-24-35 06:52:00* Test Item Value Reference Range Interpretation Comments Arterial Blood Base Excess (test code = 1925-7) -11.0 -2-3 L [facility] CenterArterial Blood Oxygen Saturation 2018-12-21 06:52:00* Test Item Value Reference Range Interpretation Comments Arterial Blood Oxygen Saturation (test code = 2708-6) 98.0 95-98 [facility] CenterFiO22019-11-11 06:52:00* Test Item Value Reference Range Interpretation Comments FiO2 (test code = FiO2) 28 [facility] Blood qL2339-16-21 06:52:00* Test Item Value Reference Range Interpretation Comments Arterial Blood pH (test code = 2744-1) 7.37 7.31-7.41 [facility] CenterArterial Blood Partial Pressure CO2 2018-12-21 06:52:00* Test Item Value Reference Range Interpretation Comments Arterial Blood Partial Pressure CO2 (test code = 2018-09) 25 41-51 L [facility] CenterArterial Blood Partial Pressure O2 2018-12-21 06:52:00* Test Item Value Reference Range Interpretation Comments Arterial Blood Partial Pressure O2 (test code = 2019-8) 103 80-105 [facility] CenterArterial Blood FZY03603-43-65 06:52:00* Test Item Value Reference Range Interpretation Comments Arterial Blood HCO3 (test code = 1960-4) 15 23-28 L [facility] CenterArterial Blood Base Hfqvtm2622-76-16 06:52:00* Test Item Value Reference Range Interpretation Comments Arterial Blood Base Excess (test code = 1925-7) -11.0 -2-3 L [facility] CenterArterial Blood Oxygen Saturation 2018-12-21 06:52:00* Test Item Value Reference Range Interpretation Comments Arterial Blood Oxygen Saturation (test code = 2708-6) 98.0 95-98 [facility] CenterFiO22019-11-11 06:52:00* Test Item Value Reference Range Interpretation Comments FiO2 (test code = FiO2) 28 [facility] Blood pM8552-38-37 06:52:00* Test Item Value Reference Range Interpretation Comments Arterial Blood pH (test code = 2744-1) 7.37 7.31-7.41 [facility] CenterArterial Blood Partial Pressure CO2 2018-12-21 06:52:00* Test Item Value Reference Range Interpretation Comments Arterial Blood Partial Pressure CO2 (test code = 2018-8) 25 41-51 L [facility] CenterArterial Blood Partial Pressure O2 2018-12-21 06:52:00* Test Item Value Reference Range Interpretation Comments Arterial Blood Partial Pressure O2 (test code = 2018-8) 103 80-105 [facility] CenterArterial Blood AYK65417-90-76 06:52:00* Test Item Value Reference Range Interpretation Comments Arterial Blood HCO3 (test code = 1959-4) 15 23-28 L [facility] CenterArterial Blood Base Mmnpjh8525-37-65 06:52:00* Test Item Value Reference Range Interpretation Comments Arterial Blood Base Excess (test code = 1925-7) -11.0 -2-3 L [facility] CenterArterial Blood Oxygen Saturation 2018-12-21 06:52:00* Test Item Value Reference Range Interpretation Comments Arterial Blood Oxygen Saturation (test code = 2708-6) 98.0 95-98 [facility] CenterFiO22019-11-11 06:52:00* Test Item Value Reference Range Interpretation Comments FiO2 (test code = FiO2) 28 [facility] CenterArtermari[facility] Blood wE0524-11-97 06:52:00* Test Item Value Reference Range Interpretation Comments Arterial Blood pH (test code = 2744-1) 7.37 7.31-7.41 [facility] CenterArterial Blood Partial Pressure CO2 2018-12-21 06:52:00* Test Item Value Reference Range Interpretation Comments Arterial Blood Partial Pressure CO2 (test code = 2018-09) 25 41-51 L [facility] CenterArterial Blood Partial Pressure O2 2018-12-21 06:52:00* Test Item Value Reference Range Interpretation Comments Arterial Blood Partial Pressure O2 (test code = 2018-09) 103 80-105 [facility] Blood RCN61782-35-44 06:52:00* Test Item Value Reference Range Interpretation Comments Arterial Blood HCO3 (test code = 1960-4) 15 23-28 L [facility] CenterArterial Blood Base Jfbdas6633-27-74 06:52:00* Test Item Value Reference Range Interpretation Comments Arterial Blood Base Excess (test code = 1925-7) -11.0 -2-3 L [facility] CenterArterial Blood Oxygen Saturation 2018-12-21 06:52:00* Test Item Value Reference Range Interpretation Comments Arterial Blood Oxygen Saturation (test code = 2708-6) 98.0 95-98 [facility] CenterFiO22019-11-11 06:52:00* Test Item Value Reference Range Interpretation Comments FiO2 (test code = FiO2) 28 [facility] Blood hW0183-69-90 06:52:00* Test Item Value Reference Range Interpretation Comments Arterial Blood pH (test code = 2744-1) 7.37 7.31-7.41 [facility] CenterArterial Blood Partial Pressure CO2 2018-12-21 06:52:00* Test Item Value Reference Range Interpretation Comments Arterial Blood Partial Pressure CO2 (test code = 2018-09) 25 41-51 L [facility] CenterArterial Blood Partial Pressure O2 2018-12-21 06:52:00* Test Item Value Reference Range Interpretation Comments Arterial Blood Partial Pressure O2 (test code = 2018-8) 103 80-105 [facility] CenterArterial Blood SWJ38672-25-83 06:52:00* Test Item Value Reference Range Interpretation Comments Arterial Blood HCO3 (test code = 1959-4) 15 23-28 L [facility] CenterArterial Blood Base Ofgmsx3083-85-56 06:52:00* Test Item Value Reference Range Interpretation Comments Arterial Blood Base Excess (test code = 1925-7) -11.0 -2-3 L [facility] CenterArterial Blood Oxygen Saturation 2018-12-21 06:52:00* Test Item Value Reference Range Interpretation Comments Arterial Blood Oxygen Saturation (test code = 2708-6) 98.0 95-98 [facility] CenterFiO22019-11-11 06:52:00* Test Item Value Reference Range Interpretation Comments FiO2 (test code = FiO2) 28 [facility] CenterArterial Blood cD7393-79-94 06:52:00* Test Item Value Reference Range Interpretation Comments Arterial Blood pH (test code = 2744-1) 7.37 7.31-7.41 [facility] CenterArterial Blood Partial Pressure CO2 2018-12-21 06:52:00* Test Item Value Reference Range Interpretation Comments Arterial Blood Partial Pressure CO2 (test code = 2018-) 25 41-51 L [facility] CenterArterial Blood Partial Pressure O2 2018-12-21 06:52:00* Test Item Value Reference Range Interpretation Comments Arterial Blood Partial Pressure O2 (test code = 2018-8) 103 80-105 [facility] CenterArterial Blood QBP15624-02-53 06:52:00* Test Item Value Reference Range Interpretation Comments Arterial Blood HCO3 (test code = 1960-4) 15 23-28 L [facility] CenterArterial Blood Base Xadlpo4318-72-95 06:52:00* Test Item Value Reference Range Interpretation Comments Arterial Blood Base Excess (test code = 1925-7) -11.0 -2-3 L [facility] CenterArterial Blood Oxygen Saturation 2018-12-21 06:52:00* Test Item Value Reference Range Interpretation Comments Arterial Blood Oxygen Saturation (test code = 2708-6) 98.0 95-98 [facility] CenterFiO22019-11-11 06:52:00* Test Item Value Reference Range Interpretation Comments FiO2 (test code = FiO2) 28 [facility] Zjokrmg1913-07-43 15:21:00* Test Item Value Reference Range Interpretation Comments Blood Culture (test code = 61558026) NO GROWTH AFTER 5 DAYS, FINAL REPORT [facility] Puobbno2318-97-26 15:21:00* Test Item Value Reference Range Interpretation Comments Blood Culture (test code = 49345322) NO GROWTH AFTER 5 DAYS, FINAL REPORT [facility] Yswonso9964-61-43 15:21:00* Test Item Value Reference Range Interpretation Comments Blood Culture (test code = 49699243) NO GROWTH AFTER 5 DAYS, FINAL REPORT [facility] Vrajboe5864-09-21 19:29:00* Test Item Value Reference Range Interpretation Comments Bedside Glucose (test code = 05273-9) 100 70-120 Meter ID: [id number] [facility] Glucose 2018-10-30 19:29:00* Test Item Value Reference Range Interpretation Comments Bedside Glucose (test code = 20517-9) 100 70-120 Meter ID: [id number] Scott [facility] Glucose 2018-10-30 19:29:00* Test Item Value Reference Range Interpretation Comments Bedside Glucose (test code = 17101-0) 100 70-120 Meter ID: [id number]. [facility] Culture 2018-10-30 15:21:00* Test Item Value Reference Range Interpretation Comments Blood Culture (test code = 18707675) NO GROWTH AFTER 72 HOURS [facility] Ifyhlhj0957-89-92 11:48:00* Test Item Value Reference Range Interpretation Comments Bedside Glucose (test code = 74993-9) 225 70-120 H Meter ID: [id number] Medical CenterTriglycerides Level 2018-10-29 06:08:00* Test Item Value Reference Range Interpretation Comments Triglycerides Level (test code = 2571-8) 137 0-149 [facility] CenterCholesterol Xvjhx6686-50-23 06:08:00* Test Item Value Reference Range Interpretation Comments Cholesterol Level (test code = 2093-3) 191 0-199 Less than 200 mg/dL Low Tzgf638 - 239 mg/dL Borderline Ksvj141 m g/dl and greater High Risk [facility] CenterLDL Bhfzprlttcl8171-80-69 06:08:00* Test Item Value Reference Range Interpretation Comments LDL Cholesterol (test code = 2089-1) 87 60-130 [facility] Yhojjmiotfv0486-57-73 06:08:00* Test Item Value Reference Range Interpretation Comments HDL Cholesterol (test code = 2085-9) 77 40-60 H [facility] CenterCholesterol/HDL Gzzhy7537-09-87 06:08:00 * Test Item Value Reference Range Interpretation Comments Cholesterol/HDL Ratio (test code = 9830-1) 2.5 3.0-3.6 L [facility] CenterTriglycerides Swozh4311-91-42 06:08:00* Test Item Value Reference Range Interpretation Comments Triglycerides Level (test code = 2571-8) 137 0-149 [facility] CenterCholesterol Wphoq1848-53-83 06:08:00* Test Item Value Reference Range Interpretation Comments Cholesterol Level (test code = 2093-3) 191 0-199 Less than 200 mg/dL Low Hota335 - 239 mg/dL Borderline Auwp634 m g/dl and greater [facility] Risk [facility]LDL Xpxruriajpm9203-16-55 06:08:00* Test Item Value Reference Range Interpretation Comments LDL Cholesterol (test code = 2089-1) 87 60-130 [facility] Kubdlndikaj3040-77-20 06:08:00* Test Item Value Reference Range Interpretation Comments HDL Cholesterol (test code = 2085-9) 77 40-60 H [facility] CenterCholesterol/HDL Etdkq9038-92-52 06:08:00 * Test Item Value Reference Range Interpretation Comments Cholesterol/HDL Ratio (test code = 9830-1) 2.5 3.0-3.6 L [facility] CenterTriglycerides Jzqxp7432-48-54 06:08:00* Test Item Value Reference Range Interpretation Comments Triglycerides Level (test code = 2571-8) 137 0-149 [facility]Cholesterol Ikaqi5934-73-21 06:08:00* Test Item Value Reference Range Interpretation Comments Cholesterol Level (test code = 2093-3) 191 0-199 Less than 200 mg/dL Low Rans375 - 239 mg/dL Borderline Uxuq835 m g/dl and greater [facility] Risk [facility] CenterLDL Xxauurcscmj1331-65-42 06:08:00* Test Item Value Reference Range Interpretation Comments LDL Cholesterol (test code = 2089-1) 87 60-130 [facility] Ueoahfaiavq3509-39-46 06:08:00* Test Item Value Reference Range Interpretation Comments HDL Cholesterol (test code = 2085-9) 77 40-60 H [facility] CenterCholesterol/HDL Mhvkd4522-15-82 06:08:00 * Test Item Value Reference Range Interpretation Comments Cholesterol/HDL Ratio (test code = 9830-1) 2.5 3.0-3.6 L [facility] CenterTriglycerides Fjvrg9458-06-31 06:08:00* Test Item Value Reference Range Interpretation Comments Triglycerides Level (test code = 2571-8) 137 0-149 [facility] CenterCholesterol Uimtw0528-92-42 06:08:00* Test Item Value Reference Range Interpretation Comments Cholesterol Level (test code = 2093-3) 191 0-199 Less than 200 mg/dL Low Trda593 - 239 mg/dL Borderline Tcop747 m g/dl and greater [facility] Risk [facility] CenterLDL Qvnhwfwfjlz9191-58-68 06:08:00* Test Item Value Reference Range Interpretation Comments LDL Cholesterol (test code = 2089-1) 87 60-130 [facility] Ltbhgyqgpml7970-32-51 06:08:00* Test Item Value Reference Range Interpretation Comments HDL Cholesterol (test code = 2085-9) 77 40-60 H [facility] CenterCholesterol/HDL Xmglj7538-17-21 06:08:00 * Test Item Value Reference Range Interpretation Comments Cholesterol/HDL Ratio (test code = 9830-1) 2.5 3.0-3.6 L [facility] CenterTriglycerides Gsuxu4315-27-54 06:08:00* Test Item Value Reference Range Interpretation Comments Triglycerides Level (test code = 2571-8) 137 0-149 [facility] CenterCholesterol Xnebe7569-69-42 06:08:00* Test Item Value Reference Range Interpretation Comments Cholesterol Level (test code = 2093-3) 191 0-199 Less than 200 mg/dL Low Webx954 - 239 mg/dL Borderline Ioaz855 m g/dl and greater [facility] Risk [facility]LDL Ikvhmcqcexs2874-30-45 06:08:00* Test Item Value Reference Range Interpretation Comments LDL Cholesterol (test code = 2089-1) 87 60-130 [facility] CenterHDL Ogmgjvfsdfz4427-07-90 06:08:00* Test Item Value Reference Range Interpretation Comments HDL Cholesterol (test code = 2085-9) 77 40-60 H [facility] CenterCholesterol/HDL Xwypi8681-69-41 06:08:00 * Test Item Value Reference Range Interpretation Comments Cholesterol/HDL Ratio (test code = 9830-1) 2.5 3.0-3.6 L [facility] CenterTriglycerides Uyjyc4833-65-09 06:08:00* Test Item Value Reference Range Interpretation Comments Triglycerides Level (test code = 2571-8) 137 0-149 [facility] CenterCholesterol Dmpbz4335-59-14 06:08:00* Test Item Value Reference Range Interpretation Comments Cholesterol Level (test code = 2093-3) 191 0-199 Less than 200 mg/dL Low Crws843 - 239 mg/dL Borderline Kryr067 m g/dl and greater [facility] Risk [facility]LDL Mpfwivoghdx0440-15-65 06:08:00* Test Item Value Reference Range Interpretation Comments LDL Cholesterol (test code = 2089-1) 87 60-130 [facility] CenterHDL Zwlaxkshwle8756-71-75 06:08:00* Test Item Value Reference Range Interpretation Comments HDL Cholesterol (test code = 2085-9) 77 40-60 H [facility] CenterCholesterol/HDL Pkphl6502-65-93 06:08:00 * Test Item Value Reference Range Interpretation Comments Cholesterol/HDL Ratio (test code = 9830-1) 2.5 3.0-3.6 L [facility] CenterTriglycerides Rctkj3785-29-98 06:08:00* Test Item Value Reference Range Interpretation Comments Triglycerides Level (test code = 2571-8) 137 0-149 [facility] CenterCholesterol Gwvxt6205-67-78 06:08:00* Test Item Value Reference Range Interpretation Comments Cholesterol Level (test code = 2093-3) 191 0-199 Less than 200 mg/dL Low Snqp919 - 239 mg/dL Borderline Azna161 m g/dl and greater [facility] Risk [facility] CenterLDL Jfbunltryxs4854-89-08 06:08:00* Test Item Value Reference Range Interpretation Comments LDL Cholesterol (test code = 2089-1) 87 60-130 [facility] CenterHDL Efavfpjtusl3541-74-03 06:08:00* Test Item Value Reference Range Interpretation Comments HDL Cholesterol (test code = 2085-9) 77 40-60 H [facility] CenterCholesterol/HDL Iwgve5416-89-52 06:08:00 * Test Item Value Reference Range Interpretation Comments Cholesterol/HDL Ratio (test code = 9830-1) 2.5 3.0-3.6 L [facility] CenterDifferential Total Cells Counted 2018-10-28 08:32:00* Test Item Value Reference Range Interpretation Comments Differential Total Cells Counted (test code = Differen tial Total Cells Counted) 100 [facility] CenterNeutrophils % (Manual)2018-10-28 08:32:00 * Test Item Value Reference Range Interpretation Comments Neutrophils % (Manual) (test code = 30823-0) 67 40-74 [facility] CenterLymphocytes % (Manual)2018-10-28 08:32:00 * Test Item Value Reference Range Interpretation Comments Lymphocytes % (Manual) (test code = 737-7) 17 19-48 L [facility] CenterMonocytes % (Manual)2018-10-28 08:32:00* Test Item Value Reference Range Interpretation Comments Monocytes % (Manual) (test code = 744-3) 13 3.4-9.0 H [facility] CenterEosinophils % (Manual)2018-10-28 08:32:00 * Test Item Value Reference Range Interpretation Comments Eosinophils % (Manual) (test code = 714-6) 3 0-7 [facility] CenterPlatelet Ubkftzor7240-88-85 08:32:00* Test Item Value Reference Range Interpretation Comments Platelet Estimate (test code = 09178-5) MODERATELY DECREASED [facility] CenterPlatelet Morphology Elgjqvs4267-24-40 08:32:00* Test Item Value Reference Range Interpretation Comments Platelet Morphology Comment (test code = 91236-9) FEW LARGE [facility] CenterRed Cell Morphology Cromzrv5456-86-85 08:32:00* Test Item Value Reference Range Interpretation Comments Red Cell Morphology Comment (test code = 6742-1) NORMAL [facility] CenterDifferential Total Cells Counted 2018-10-28 08:32:00* Test Item Value Reference Range Interpretation Comments Differential Total Cells Counted (test code = Differnandini tial Total Cells Counted) 100 [facility] CenterNeutrophils % (Manual)2018-10-28 08:32:00 * Test Item Value Reference Range Interpretation Comments Neutrophils % (Manual) (test code = 27369-1) 67 40-74 [facility] CenterLymphocytes % (Manual)2018-10-28 08:32:00 * Test Item Value Reference Range Interpretation Comments Lymphocytes % (Manual) (test code = 737-7) 17 19-48 L [facility] CenterMonocytes % (Manual)2018-10-28 08:32:00* Test Item Value Reference Range Interpretation Comments Monocytes % (Manual) (test code = 744-3) 13 3.4-9.0 H [facility] CenterEosinophils % (Manual)2018-10-28 08:32:00 * Test Item Value Reference Range Interpretation Comments Eosinophils % (Manual) (test code = 714-6) 3 0-7 [facility] CenterPlatelet Anobqpix5163-41-90 08:32:00* Test Item Value Reference Range Interpretation Comments Platelet Estimate (test code = 12605-5) MODERATELY DECREASED [facility] CenterPlatelet Morphology Bufdsix4094-92-36 08:32:00* Test Item Value Reference Range Interpretation Comments Platelet Morphology Comment (test code = 80366-3) FEW LARGE [facility] CenterRed Cell Morphology Alcrvmy7006-92-09 08:32:00* Test Item Value Reference Range Interpretation Comments Red Cell Morphology Comment (test code = 6742-1) NORMAL [facility] CenterDifferential Total Cells Counted 2018-10-28 08:32:00* Test Item Value Reference Range Interpretation Comments Differential Total Cells Counted (test code = Differnandini tial Total Cells Counted) 100 [facility] CenterNeutrophils % (Manual)2018-10-28 08:32:00 * Test Item Value Reference Range Interpretation Comments Neutrophils % (Manual) (test code = 54161-3) 67 40-74 [facility] CenterLymphocytes % (Manual)2018-10-28 08:32:00 * Test Item Value Reference Range Interpretation Comments Lymphocytes % (Manual) (test code = 737-7) 17 19-48 L [facility] CenterMonocytes % (Manual)2018-10-28 08:32:00* Test Item Value Reference Range Interpretation Comments Monocytes % (Manual) (test code = 744-3) 13 3.4-9.0 H [facility] CenterEosinophils % (Manual)2018-10-28 08:32:00 * Test Item Value Reference Range Interpretation Comments Eosinophils % (Manual) (test code = 714-6) 3 0-7 [facility] CenterPlatelet Yrcbftjy4851-58-35 08:32:00* Test Item Value Reference Range Interpretation Comments Platelet Estimate (test code = 78673-6) MODERATELY DECREASED [facility] CenterPlatelet Morphology Hatjmyy2831-78-32 08:32:00* Test Item Value Reference Range Interpretation Comments Platelet Morphology Comment (test code = 99329-1) FEW LARGE [facility] CenterRed Cell Morphology Sndiien4801-12-78 08:32:00* Test Item Value Reference Range Interpretation Comments Red Cell Morphology Comment (test code = 6742-1) NORMAL [facility] CenterDifferential Total Cells Counted 2018-10-28 08:32:00* Test Item Value Reference Range Interpretation Comments Differential Total Cells Counted (test code = Differnandini tial Total Cells Counted) 100 [facility] CenterNeutrophils % (Manual)2018-10-28 08:32:00 * Test Item Value Reference Range Interpretation Comments Neutrophils % (Manual) (test code = 58047-3) 67 40-74 [facility] CenterLymphocytes % (Manual)2018-10-28 08:32:00 * Test Item Value Reference Range Interpretation Comments Lymphocytes % (Manual) (test code = 737-7) 17 19-48 L [facility] CenterMonocytes % (Manual)2018-10-28 08:32:00* Test Item Value Reference Range Interpretation Comments Monocytes % (Manual) (test code = 744-3) 13 3.4-9.0 H [facility] CenterEosinophils % (Manual)2018-10-28 08:32:00 * Test Item Value Reference Range Interpretation Comments Eosinophils % (Manual) (test code = 714-6) 3 0-7 [facility] CenterPlatelet Kvjtdjpq2209-47-66 08:32:00* Test Item Value Reference Range Interpretation Comments Platelet Estimate (test code = 02701-5) MODERATELY DECREASED [facility] CenterPlatelet Morphology Dnzsszr2953-56-56 08:32:00* Test Item Value Reference Range Interpretation Comments Platelet Morphology Comment (test code = 87891-1) FEW LARGE [facility] CenterRed Cell Morphology Ppuefmb1095-69-82 08:32:00* Test Item Value Reference Range Interpretation Comments Red Cell Morphology Comment (test code = 6742-1) NORMAL [facility] CenterDifferential Total Cells Counted 2018-10-28 08:32:00* Test Item Value Reference Range Interpretation Comments Differential Total Cells Counted (test code = Differen tial Total Cells Counted) 100 [facility] CenterNeutrophils % (Manual)2018-10-28 08:32:00 * Test Item Value Reference Range Interpretation Comments Neutrophils % (Manual) (test code = 03967-6) 67 40-74 [facility] CenterLymphocytes % (Manual)2018-10-28 08:32:00 * Test Item Value Reference Range Interpretation Comments Lymphocytes % (Manual) (test code = 737-7) 17 19-48 L [facility] CenterMonocytes % (Manual)2018-10-28 08:32:00* Test Item Value Reference Range Interpretation Comments Monocytes % (Manual) (test code = 744-3) 13 3.4-9.0 H [facility] CenterEosinophils % (Manual)2018-10-28 08:32:00 * Test Item Value Reference Range Interpretation Comments Eosinophils % (Manual) (test code = 714-6) 3 0-7 [facility] CenterPlatelet Hxpilxrp4002-54-77 08:32:00* Test Item Value Reference Range Interpretation Comments Platelet Estimate (test code = 73512-0) MODERATELY DECREASED [facility] CenterPlatelet Morphology Qgknxmz6909-56-72 08:32:00* Test Item Value Reference Range Interpretation Comments Platelet Morphology Comment (test code = 63926-3) FEW LARGE [facility] CenterRed Cell Morphology Xrrhkka2754-72-18 08:32:00* Test Item Value Reference Range Interpretation Comments Red Cell Morphology Comment (test code = 6742-1) NORMAL [facility] CenterDifferential Total Cells Counted 2018-10-28 08:32:00* Test Item Value Reference Range Interpretation Comments Differential Total Cells Counted (test code = Differen tial Total Cells Counted) 100 [facility] CenterNeutrophils % (Manual)2018-10-28 08:32:00 * Test Item Value Reference Range Interpretation Comments Neutrophils % (Manual) (test code = 07104-9) 67 40-74 [facility] CenterLymphocytes % (Manual)2018-10-28 08:32:00 * Test Item Value Reference Range Interpretation Comments Lymphocytes % (Manual) (test code = 737-7) 17 19-48 L [facility] CenterMonocytes % (Manual)2018-10-28 08:32:00* Test Item Value Reference Range Interpretation Comments Monocytes % (Manual) (test code = 744-3) 13 3.4-9.0 H [facility] CenterEosinophils % (Manual)2018-10-28 08:32:00 * Test Item Value Reference Range Interpretation Comments Eosinophils % (Manual) (test code = 714-6) 3 0-7 [facility] CenterPlatelet Ibxkfkxa8958-01-86 08:32:00* Test Item Value Reference Range Interpretation Comments Platelet Estimate (test code = 25031-1) MODERATELY DECREASED [facility] CenterPlatelet Morphology Zimjntt4066-21-63 08:32:00* Test Item Value Reference Range Interpretation Comments Platelet Morphology Comment (test code = 45651-2) FEW LARGE [facility] CenterRed Cell Morphology Dxybmzv5268-82-42 08:32:00* Test Item Value Reference Range Interpretation Comments Red Cell Morphology Comment (test code = 6742-1) NORMAL [facility] CenterDifferential Total Cells Counted 2018-10-28 08:32:00* Test Item Value Reference Range Interpretation Comments Differential Total Cells Counted (test code = Differnandini tial Total Cells Counted) 100 [facility] CenterNeutrophils % (Manual)2018-10-28 08:32:00 * Test Item Value Reference Range Interpretation Comments Neutrophils % (Manual) (test code = 00245-3) 67 40-74 [facility] CenterLymphocytes % (Manual)2018-10-28 08:32:00 * Test Item Value Reference Range Interpretation Comments Lymphocytes % (Manual) (test code = 737-7) 17 19-48 L [facility] CenterMonocytes % (Manual)2018-10-28 08:32:00* Test Item Value Reference Range Interpretation Comments Monocytes % (Manual) (test code = 744-3) 13 3.4-9.0 H [facility] CenterEosinophils % (Manual)2018-10-28 08:32:00 * Test Item Value Reference Range Interpretation Comments Eosinophils % (Manual) (test code = 714-6) 3 0-7 [facility] CenterPlatelet Uigvrfmf2941-08-49 08:32:00* Test Item Value Reference Range Interpretation Comments Platelet Estimate (test code = 93222-5) MODERATELY DECREASED [facility] CenterPlatelet Morphology Imumnrq9498-21-30 08:32:00* Test Item Value Reference Range Interpretation Comments Platelet Morphology Comment (test code = 55314-0) FEW LARGE [facility] CenterRed Cell Morphology Rsdjnzo8102-34-34 08:32:00* Test Item Value Reference Range Interpretation Comments Red Cell Morphology Comment (test code = 6742-1) NORMAL [facility]odium Gnaji6536-42-89 06:22:00* Test Item Value Reference Range Interpretation Comments Sodium Level (test code = 2951-2) 137 136-145 [facility] CenterPotassium Uktxg2442-01-65 06:22:00* Test Item Value Reference Range Interpretation Comments Potassium Level (test code = 2823-3) 4.9 3.5-5.1 [facility] CenterChloride Sejnk0712-75-52 06:22:00* Test Item Value Reference Range Interpretation Comments Chloride Level (test code = 2075-0) 96 98-107 L [facility] CenterCarbon Dioxide Faugx9802-53-08 06:22:00* Test Item Value Reference Range Interpretation Comments Carbon Dioxide Level (test code = 2028-9) 22 22-29 [facility] CenterAnion Xyx1449-50-40 06:22:00* Test Item Value Reference Range Interpretation Comments Anion Gap (test code = 82116-8) 23.9 8-16 H [facility] CenterBlood Urea Fcpjuqnk7993-02-98 06:22:00* Test Item Value Reference Range Interpretation Comments Blood Urea Nitrogen (test code = 3094-0) 56 7-26 H [facility] CenterCreatinine2019-09-18 06:22:00* Test Item Value Reference Range Interpretation Comments Creatinine (test code = 2160-0) 6.60 0.57-1.11 H [facility] CenterBUN/Creatinine Klkiz8881-43-45 06:22:00* Test Item Value Reference Range Interpretation Comments BUN/Creatinine Ratio (test code = 3097-3) 8 6-25 [facility] CenterEstimat Glomerular Filtration Rate 2018-10-28 06:22:00* Test Item Value Reference Range Interpretation Comments Estimat Glomerular Filtration Rate (test code = 561721118) 6 >60 L Ranges were taken from the National Kidney Disease Education Program and the [facility] Kidney Foundation literature.Reference ranges:60 or greater: Yevejs25-20 ( for 3 consecutive months): Chronic kidney disease 15 or less: Kidney failureKnapp Medical CenterGlucose Hhzui0197-80-59 06:22:00* Test Item Value Reference Range Interpretation Comments Glucose Level (test code = KJO9485) 341 74-118 H [facility] CenterCalcium Ujbah6249-12-21 06:22:00* Test Item Value Reference Range Interpretation Comments Calcium Level (test code = 25163-1) 10.1 8.4-10.2 [facility] CenterCreatine Kinase IP2609-13-19 06:10:00* Test Item Value Reference Range Interpretation Comments Creatine Kinase MB (test code = 24651-5) 5.10 0-5.0 H [facility] CenterTroponin K9832-53-80 06:10:00* Test Item Value Reference Range Interpretation Comments Troponin I (test code = KAA5701) 1.339 0-0.300 H Elevated result called to Kvng Webb/CHARANJIT at 0608 on 10/28/18 by Tyler riderKnapp Medical CenterCreatine Ldvqiw0333-17-35 05:48:00* Test Item Value Reference Range Interpretation Comments Creatine Kinase (test code = 2157-6) 41 29-168 [facility] CenterWhite Blood Yypro6604-58-14 05:43:00* Test Item Value Reference Range Interpretation Comments White Blood Count (test code = 6690-2) 6.31 4.8-10.8 [facility] CenterRed Blood Hxsqu0403-23-96 05:43:00* Test Item Value Reference Range Interpretation Comments Red Blood Count (test code = 789-8) 3.07 3.6-5.1 L [facility] CenterHemoglobin2019-09-18 05:43:00* Test Item Value Reference Range Interpretation Comments Hemoglobin (test code = 74896-5) 10.3 12.0-16.0 L [facility] CenterHematocrit2019-09-18 05:43:00* Test Item Value Reference Range Interpretation Comments Hematocrit (test code = 4544-3) 31.0 34.2-44.1 L [facility] CenterMean Corpuscular Vathay9728-10-63 05:43:00* Test Item Value Reference Range Interpretation Comments Mean Corpuscular Volume (test code = 787-2) 101.0 81-99 H [facility] CenterMean Corpuscular Jeuigdpimr2926-36-75 05:43:00* Test Item Value Reference Range Interpretation Comments Mean Corpuscular Hemoglobin (test code = 785-6) 33.6 28-32 H [facility] CenterMean Corpuscular Hemoglobin Concent 2018-10-28 05:43:00* Test Item Value Reference Range Interpretation Comments Mean Corpuscular Hemoglobin Concent (test code = 786-4) 33.2 31-35 [facility] CenterRed Cell Distribution Vbtgc9469-82-90 05:43:00* Test Item Value Reference Range Interpretation Comments Red Cell Distribution Width (test code = 06473-9) 13.8 11.7 -14.4 [facility] CenterPlatelet Gvwey5994-72-73 05:43:00* Test Item Value Reference Range Interpretation Comments Platelet Count (test code = 777-3) 199 140-360 [facility] CenterNeutrophils (%) (Auto)2018-10-28 05:43:00 * Test Item Value Reference Range Interpretation Comments Neutrophils (%) (Auto) (test code = 39455-2) 72.4 38.7-80.0 [facility] CenterLymphocytes (%) (Auto)2018-10-28 05:43:00 * Test Item Value Reference Range Interpretation Comments Lymphocytes (%) (Auto) (test code = 736-9) 10.0 18.0-39.1 L [facility] CenterMonocytes (%) (Auto)2018-10-28 05:43:00* Test Item Value Reference Range Interpretation Comments Monocytes (%) (Auto) (test code = 5905-5) 13.9 4.4-11.3 H [facility] CenterEosinophils (%) (Auto)2018-10-28 05:43:00 * Test Item Value Reference Range Interpretation Comments Eosinophils (%) (Auto) (test code = 713-8) 2.9 0.0-6.0 [facility] CenterBasophils (%) (Auto)2018-10-28 05:43:00* Test Item Value Reference Range Interpretation Comments Basophils (%) (Auto) (test code = 706-2) 0.3 0.0-1.0 [facility] CenterIM GRANULOCYTES %2018-10-28 05:43:00* Test Item Value Reference Range Interpretation Comments IM GRANULOCYTES % (test code = IM GRANULOCYTES %) 0.5 0.0- 1.0 [facility] CenterNeutrophils # (Auto)2018-10-28 05:43:00* Test Item Value Reference Range Interpretation Comments Neutrophils # (Auto) (test code = 751-8) 4.6 2.1-6.9 [facility] CenterLymphocytes # (Auto)2018-10-28 05:43:00* Test Item Value Reference Range Interpretation Comments Lymphocytes # (Auto) (test code = 77584-4) 0.6 1.0-3.2 L [facility] CenterMonocytes # (Auto)2018-10-28 05:43:00* Test Item Value Reference Range Interpretation Comments Monocytes # (Auto) (test code = 742-7) 0.9 0.2-0.8 H [facility] CenterEosinophils # (Auto)2018-10-28 05:43:00* Test Item Value Reference Range Interpretation Comments Eosinophils # (Auto) (test code = 711-2) 0.2 0.0-0.4 [facility] CenterBasophils # (Auto)2018-10-28 05:43:00* Test Item Value Reference Range Interpretation Comments Basophils # (Auto) (test code = 704-7) 0.0 0.0-0.1 [facility] CenterAbsolute Immature Granulocyte (auto 2018-10-28 05:43:00* Test Item Value Reference Range Interpretation Comments Absolute Immature Granulocyte (auto (carine t code = Absolute Immature Granulocyte (auto) 0.03 0-0.1 [facility] CenterLactic Acid Lckjp0409-01-03 18:39:00* Test Item Value Reference Range Interpretation Comments Lactic Acid Level (test code = Lactic Acid Level) 9.5 4.5- 19.8 [facility] CenterLactic Acid Dasrd6719-61-32 18:39:00* Test Item Value Reference Range Interpretation Comments Lactic Acid Level (test code = Lactic Acid Level) 9.5 4.5- 19.8 [facility] CenterLactic Acid Bgsav3590-78-18 18:39:00* Test Item Value Reference Range Interpretation Comments Lactic Acid Level (test code = Lactic Acid Level) 9.5 4.5- 19.8 [facility] CenterLactic Acid Najll1053-24-73 18:39:00* Test Item Value Reference Range Interpretation Comments Lactic Acid Level (test code = Lactic Acid Level) 9.5 4.5- 19.8 [facility] CenterArterial Blood jB9952-54-21 13:58:00* Test Item Value Reference Range Interpretation Comments Arterial Blood pH (test code = 2744-1) 7.32 7.31-7.41 [facility] CenterArterial Blood Partial Pressure CO2 2018-10-27 13:58:00* Test Item Value Reference Range Interpretation Comments Arterial Blood Partial Pressure CO2 (test code = 2019-8) 30 41-51 L [facility] CenterArterial Blood Partial Pressure O2 2018-10-27 13:58:00* Test Item Value Reference Range Interpretation Comments Arterial Blood Partial Pressure O2 (test code = 2019-8) 110 80-105 H [facility] CenterArterial Blood GVD95630-91-88 13:58:00* Test Item Value Reference Range Interpretation Comments Arterial Blood HCO3 (test code = 1960-4) 15 23-28 L [facility] CenterArterial Blood Base Mmtgvp4309-46-72 13:58:00* Test Item Value Reference Range Interpretation Comments Arterial Blood Base Excess (test code = 1925-7) -11.0 -2-3 L [facility] CenterArterial Blood Oxygen Saturation 2018-10-27 13:58:00* Test Item Value Reference Range Interpretation Comments Arterial Blood Oxygen Saturation (test code = 2708-6) 98.0 95-98 [facility] CenterFiO22019-09-17 13:58:00* Test Item Value Reference Range Interpretation Comments FiO2 (test code = FiO2) 40 Pt was on 40% Bipap //R/12/40% when ABG was drawnKnapp Medical CenterB-Type Natriuretic Wjjzbmm9953-09-06 12:17:00* Test Item Value Reference Range Interpretation Comments B-Type Natriuretic Peptide (test code = 50642-2) 2390.1 0-100 H [facility] CenterTotal Spgnqhqod6874-72-94 11:51:00* Test Item Value Reference Range Interpretation Comments Total Bilirubin (test code = 1975-2) 0.6 0.2-1.2 [facility] CenterAspartate Amino Transf (AST/SGOT) 2018-10-27 11:51:00* Test Item Value Reference Range Interpretation Comments Aspartate Amino Transf (AST/SGOT) (test code = Aspartate Amino Transf (AST/SGOT)) 17 5-34 [facility] CenterAlanine Aminotransferase (ALT/SGPT) 2018-10-27 11:51:00* Test Item Value Reference Range Interpretation Comments Alanine Aminotransferase (ALT/SGPT) (test code = 1742-6) 27 0-55 [facility] CenterTotal Iiramsj7227-45-51 11:51:00* Test Item Value Reference Range Interpretation Comments Total Protein (test code = 2885-2) 6.3 6.5-8.1 L [facility] CenterAlbumin2019-09-17 11:51:00* Test Item Value Reference Range Interpretation Comments Albumin (test code = 1751-7) 3.2 3.5-5.0 L [facility] CenterGlobulin2019-09-17 11:51:00* Test Item Value Reference Range Interpretation Comments Globulin (test code = 00377-9) 3.1 2.3-3.5 [facility] CenterAlbumin/Globulin Kmbhp0516-68-01 11:51:00 * Test Item Value Reference Range Interpretation Comments Albumin/Globulin Ratio (test code = 1759-0) 1.0 0.8-2.0 [facility] CenterAlkaline Fofsebnoelf0486-72-07 11:51:00* Test Item Value Reference Range Interpretation Comments Alkaline Phosphatase (test code = 6768-6) 116 40-150 [facility] CenterCHEST SINGLE (PORTABLE)2018-10-27 11:26:00 [facility] [address] [place] [address] Patient Name: YARITZA JOSEPH MR #: [id number] : 1960 Age/Sex: 58/F Req #: [id number] Adm Physician: Ordered by: ADIN SCOTT MD Report #: [id number] Location: ER Room/Bed: Procedure: [id number] DX/CHEST SINGLE (PORTABLE) Exam Date: 10/27/18 Exam [...] 112 Transcribed By: FRANCISCO J on 10/27/18 112 COPY TO: ADIN SCOTT MD CHEST SINGLE (PORTABLE) 2018-03-23 07:39:00 [place] [address] Patient Name: YARITZA JOSEPH MR #: [id number] : 1960 Age/Sex: 57/F Req #: [id number] Adm Physician: Ordered by: NAFISA LARES MD Report #: [id number] Location: ER Room/Bed: Procedure: [id number] 0014 DX/CHEST [...] Comments Creatine Kinase MB (test code = 65028-8) 1.40 0-5.0 [facility] CenterTroponin V8926-30-46 07:26:00* Test Item Value Reference Range Interpretation Comments Troponin I (test code = THV0902) 0.027 0-0.300 [facility] CenterB-Type Natriuretic Gaiusoq3450-54-13 07:25:00* Test Item Value Reference Range Interpretation Comments B-Type Natriuretic Peptide (test code = 12594-5) 1459.7 0-100 [facility] Centerodium Jlhbp7479-15-70 07:20:00* Test Item Value Reference Range Interpretation Comments Sodium Level (test code = 2951-2) 138 136-145 [facility] CenterPotassium Sbrue4335-69-49 07:20:00* Test Item Value Reference Range Interpretation Comments Potassium Level (test code = 2823-3) 4.3 3.5-5.1 [facility] CenterChloride Dpvqp0355-26-92 07:20:00* Test Item Value Reference Range Interpretation Comments Chloride Level (test code = 2075-0) 106 98-107 [facility] CenterCarbon Dioxide Oxrma9865-63-53 07:20:00* Test Item Value Reference Range Interpretation Comments Carbon Dioxide Level (test code = 2028-9) 17 22-29 L [facility] CenterAnion Acs3327-40-58 07:20:00* Test Item Value Reference Range Interpretation Comments Anion Gap (test code = 21054-3) 19.3 8-16 H [facility] CenterBlood Urea Ahwvmgnu3391-87-61 07:20:00* Test Item Value Reference Range Interpretation Comments Blood Urea Nitrogen (test code = 3094-0) 61 7-26 H [facility] CenterCreatinine2019-02-11 07:20:00* Test Item Value Reference Range Interpretation Comments Creatinine (test code = 2160-0) 8.13 0.57-1.11 H [facility] CenterBUN/Creatinine Qqdjg6097-85-83 07:20:00* Test Item Value Reference Range Interpretation Comments BUN/Creatinine Ratio (test code = 3097-3) 8 6-25 [facility] CenterEstimat Glomerular Filtration Rate 2018-03-23 07:20:00* Test Item Value Reference Range Interpretation Comments Estimat Glomerular Filtration Rate (test code = 121143385) 5 >60 L Ranges were taken from the National Kidney Disease Education Program and the [facility] literature.Reference ranges:60 or greater: Besebs27-55 ( for 3 consecutive months): Chronic kidney disease 15 or less: Kidney failureKnapp Medical CenterGlucose Rlvle4558-82-53 07:20:00* Test Item Value Reference Range Interpretation Comments Glucose Level (test code = YQA0466) 197 74-118 H [facility] CenterCalcium Lrbam1344-10-05 07:20:00* Test Item Value Reference Range Interpretation Comments Calcium Level (test code = 10395-2) 9.0 8.4-10.2 [facility] CenterTotal Xbiecdmbe1860-42-89 07:20:00* Test Item Value Reference Range Interpretation Comments Total Bilirubin (test code = 1975-2) 0.7 0.2-1.2 [facility] CenterAspartate Amino Transf (AST/SGOT) 2018-03-23 07:20:00* Test Item Value Reference Range Interpretation Comments Aspartate Amino Transf (AST/SGOT) (test code = Aspartate Amino Transf (AST/SGOT)) 16 5-34 [facility] CenterAlanine Aminotransferase (ALT/SGPT) 2018-03-23 07:20:00* Test Item Value Reference Range Interpretation Comments Alanine Aminotransferase (ALT/SGPT) (test code = 1742-6) 20 0-55 [facility] CenterTotal Nnlwdng1990-96-51 07:20:00* Test Item Value Reference Range Interpretation Comments Total Protein (test code = 2885-2) 6.5 6.5-8.1 [facility] CenterAlbumin2019-02-11 07:20:00* Test Item Value Reference Range Interpretation Comments Albumin (test code = 1751-7) 3.6 3.5-5.0 [facility] CenterGlobulin2019-02-11 07:20:00* Test Item Value Reference Range Interpretation Comments Globulin (test code = 82471-0) 2.9 2.3-3.5 [facility] CenterAlbumin/Globulin Vbtxl7145-76-03 07:20:00 * Test Item Value Reference Range Interpretation Comments Albumin/Globulin Ratio (test code = 1759-0) 1.2 0.8-2.0 [facility] CenterAlkaline Kpmjzotpsgh2150-87-39 07:20:00* Test Item Value Reference Range Interpretation Comments Alkaline Phosphatase (test code = 6768-6) 81 40-150 [facility] CenterCreatine Hloidb6084-81-43 07:20:00* Test Item Value Reference Range Interpretation Comments Creatine Kinase (test code = 2157-6) 28 29-168 L [facility] CenterWhite Blood Zdlvv2496-70-57 06:57:00* Test Item Value Reference Range Interpretation Comments White Blood Count (test code = 6690-2) 7.69 4.8-10.8 [facility] CenterRed Blood Josyl4305-35-06 06:57:00* Test Item Value Reference Range Interpretation Comments Red Blood Count (test code = 789-8) 3.14 3.6-5.1 L [facility] CenterHemoglobin2019-02-11 06:57:00* Test Item Value Reference Range Interpretation Comments Hemoglobin (test code = 78504-8) 10.2 12.0-16.0 L [facility] CenterHematocrit2019-02-11 06:57:00* Test Item Value Reference Range Interpretation Comments Hematocrit (test code = 4544-3) 31.3 34.2-44.1 L [facility] CenterMean Corpuscular Ketgyj6271-15-55 06:57:00* Test Item Value Reference Range Interpretation Comments Mean Corpuscular Volume (test code = 787-2) 99.7 81-99 H [facility] CenterMean Corpuscular Sjbgktacxi4381-65-94 06:57:00* Test Item Value Reference Range Interpretation Comments Mean Corpuscular Hemoglobin (test code = 785-6) 32.5 28-32 H [facility] CenterMean Corpuscular Hemoglobin Concent 2018-03-23 06:57:00* Test Item Value Reference Range Interpretation Comments Mean Corpuscular Hemoglobin Concent (test code = 786-4) 32.6 31-35 [facility] CenterRed Cell Distribution Yibun9526-85-25 06:57:00* Test Item Value Reference Range Interpretation Comments Red Cell Distribution Width (test code = 93801-4) 14.2 11.7 -14.4 [facility] CenterPlatelet Zvxev8424-01-13 06:57:00* Test Item Value Reference Range Interpretation Comments Platelet Count (test code = 777-3) 222 140-360 [facility] CenterNeutrophils (%) (Auto)2018-03-23 06:57:00 * Test Item Value Reference Range Interpretation Comments Neutrophils (%) (Auto) (test code = 90607-9) 73.6 38.7-80.0 [facility] CenterLymphocytes (%) (Auto)2018-03-23 06:57:00 * Test Item Value Reference Range Interpretation Comments Lymphocytes (%) (Auto) (test code = 736-9) 13.8 18.0-39.1 L [facility] CenterMonocytes (%) (Auto)2018-03-23 06:57:00* Test Item Value Reference Range Interpretation Comments Monocytes (%) (Auto) (test code = 5905-5) 10.0 4.4-11.3 [facility] CenterEosinophils (%) (Auto)2018-03-23 06:57:00 * Test Item Value Reference Range Interpretation Comments Eosinophils (%) (Auto) (test code = 713-8) 1.8 0.0-6.0 [facility] CenterBasophils (%) (Auto)2018-03-23 06:57:00* Test Item Value Reference Range Interpretation Comments Basophils (%) (Auto) (test code = 706-2) 0.4 0.0-1.0 [facility] CenterIM GRANULOCYTES %2018-03-23 06:57:00* Test Item Value Reference Range Interpretation Comments IM GRANULOCYTES % (test code = IM GRANULOCYTES %) 0.4 0.0- 1.0 [facility] CenterNeutrophils # (Auto)2018-03-23 06:57:00* Test Item Value Reference Range Interpretation Comments Neutrophils # (Auto) (test code = 751-8) 5.7 2.1-6.9 [facility] CenterLymphocytes # (Auto)2018-03-23 06:57:00* Test Item Value Reference Range Interpretation Comments Lymphocytes # (Auto) (test code = 53776-1) 1.1 1.0-3.2 [facility] CenterMonocytes # (Auto)2018-03-23 06:57:00* Test Item Value Reference Range Interpretation Comments Monocytes # (Auto) (test code = 742-7) 0.8 0.2-0.8 [facility] CenterEosinophils # (Auto)2018-03-23 06:57:00* Test Item Value Reference Range Interpretation Comments Eosinophils # (Auto) (test code = 711-2) 0.1 0.0-0.4 [facility] CenterBasophils # (Auto)2018-03-23 06:57:00* Test Item Value Reference Range Interpretation Comments Basophils # (Auto) (test code = 704-7) 0.0 0.0-0.1 [facility] CenterAbsolute Immature Granulocyte (auto 2018-03-23 06:57:00* Test Item Value Reference Range Interpretation Comments Absolute Immature Granulocyte (auto (carine t code = Absolute Immature Granulocyte (auto) 0.03 0-0.1 [facility] Nthifps9077-23-91 10:25:00* Test Item Value Reference Range Interpretation Comments Blood Culture (test code = 600-7) Organism: STAPH HOMINIS SUB HOMIN IS [facility] Hazypor8631-54-53 18:05:00* Test Item Value Reference Range Interpretation Comments Blood Culture (test code = 82792538) NO GROWTH AFTER 5 DAYS, FINAL REPORT [facility] Dyxsfui3783-36-94 15:36:00* Test Item Value Reference Range Interpretation Comments Bedside Glucose (test code = 91831-8) 100 70-120 Meter ID: [id number] [facility] Glucose 2017-07-16 15:36:00* Test Item Value Reference Range Interpretation Comments Bedside Glucose (test code = 41400-2) 100 70-120 Meter ID: [id number] Medical CenterHekaiser [facility] A IgM Yzdciqra1729-37-32 10:01:00* Test Item Value Reference Range Interpretation Comments Hepatitis A IgM Antibody (test code = 77482-8) Negative [facility] B Surface Xcsqohk0013-13-97 10:01:00* Test Item Value Reference Range Interpretation Comments Hepatitis B Surface Antigen (test code = 5196-1) Negative [facility] B Core IgM Vomiqsnj7492-16-82 10:01:00* Test Item Value Reference Range Interpretation Comments Hepatitis B Core IgM Antibody (test code = 18721-7) Negative [facility] C Ypilhjtd0012-38-05 10:01:00* Test Item Value Reference Range Interpretation Comments Hepatitis C Antibody (test code = 09805-4) -0.1 Reference Range: 0.0 - 0.9 s/co ratioNegative: < 0.8Indeterminate: 0.8 - 0.9Positive: > 0.9The CDC recommends that a positive HCV antibody resultbe followed up with a HCV Nucleic Acid Amplificationtest (038408).[address] [address]Ywg: Edmond Mcneil MDFor inquiries, the physician may contact Branch: [phone] Lab: [phone] A IgM Dtdlpgca8940-69-64 10:01:00* Test Item Value Reference Range Interpretation Comments Hepatitis A IgM Antibody (test code = 25074-1) Negative [facility] B Surface Pqlhjpi9156-43-68 10:01:00* Test Item Value Reference Range Interpretation Comments Hepatitis B Surface Antigen (test code = 5196-1) Negative [facility] B Core IgM Yfjvkgyn0617-61-21 10:01:00* Test Item Value Reference Range Interpretation Comments Hepatitis B Core IgM Antibody (test code = 60069-9) Negative [facility] C Uvmmwoia2960-64-34 10:01:00* Test Item Value Reference Range Interpretation Comments Hepatitis C Antibody (test code = 43627-2) <0.1 Reference Range: 0.0 - 0.9 s/co ratioNegative: < 0.8Indeterminate: 0.8 - 0.9Positive: > 0.9The CDC recommends that a positive HCV antibody resultbe followed up with a HCV Nucleic Acid Amplificationtest (732981).[address] [place] [address]Oiz: Edmond Mcneil MDFor inquiries, the physician may contact Branch: [phone] Lab: [phone] [facility] B Surface Antibody, Ttrmp1939-42-72 08:56:00* Test Item Value Reference Range Interpretation Comments Hepatitis B Surface Antibody, Quant (test code = 5194-6) 78.5 Immunity>9.9 Status of Immunity Anti-HBs Level Inconsistent with Immunity 0.0 - 9.9Consistent with Immunity >9.9[facility] B Core Total Mlarfflc6459-05-21 08:56:00* Test Item Value Reference Range Interpretation Comments Hepatitis B Core Total Antibody (test code = 83610-7) Negative Negative Performed at: [address] [id number] Director: Edmond Mcneil MD, Phone: [phone] Medical CenterHekaiser [facility] B Surface Antibody, Shjcr5442-82-40 08:56:00* Test Item Value Reference Range Interpretation Comments Hepatitis B Surface Antibody, Quant (test code = 5194-6) 78.5 Immunity>9.9 Status of Immunity Anti-HBs Level Inconsistent with Immunity 0.0 - 9.9Consistent with Immunity >9.9[facility] B Core Total Hymqjoty2421-40-73 08:56:00* Test Item Value Reference Range Interpretation Comments Hepatitis B Core Total Antibody (test code = 68293-3) Negative Negative Performed at: - [address] [id number] Director: Edmond Mcneil MD, Phone: [phone] [facility] Cancer Centerodium Rrymy7170-04-85 07:21:00* Test Item Value Reference Range Interpretation Comments Sodium Level (test code = 2951-2) 134 136-145 L [facility] CenterPotassium Xcone6158-57-35 07:21:00* Test Item Value Reference Range Interpretation Comments Potassium Level (test code = 2823-3) 4.1 3.5-5.1 [facility] CenterChloride Odwcq9368-03-19 07:21:00* Test Item Value Reference Range Interpretation Comments Chloride Level (test code = 2075-0) 101 98-107 [facility] CenterCarbon Dioxide Dxupx7496-97-06 07:21:00* Test Item Value Reference Range Interpretation Comments Carbon Dioxide Level (test code = 2028-9) 23 22-29 [facility] CenterAnion Lvs3349-80-97 07:21:00* Test Item Value Reference Range Interpretation Comments Anion Gap (test code = 89071-9) 14.1 8-16 [facility] CenterBlood Urea Wftcmolp9999-61-76 07:21:00* Test Item Value Reference Range Interpretation Comments Blood Urea Nitrogen (test code = 3094-0) 48 7-26 H [facility] CenterCreatinine2018-06-05 07:21:00* Test Item Value Reference Range Interpretation Comments Creatinine (test code = 2160-0) 5.21 0.57-1.11 H [facility] CenterBUN/Creatinine Exdcs9881-18-48 07:21:00* Test Item Value Reference Range Interpretation Comments BUN/Creatinine Ratio (test code = 3097-3) 9 6-25 [facility] CenterEstimat Glomerular Filtration Rate 2017-07-15 07:21:00* Test Item Value Reference Range Interpretation Comments Estimat Glomerular Filtration Rate (test code = 01758-3) 9 >60 L Ranges were taken from the National Kidney Disease Education Program and the [facility] literature.Reference ranges:60 or greater: Sizftc48-71 ( for 3 consecutive months): Chronic kidney disease 15 or less: Kidney failureKnapp Medical CenterGlucose Ljphu5939-24-17 07:21:00* Test Item Value Reference Range Interpretation Comments Glucose Level (test code = UCW7644) 143 74-118 H [facility] CenterCalcium Wvhug2037-56-04 07:21:00* Test Item Value Reference Range Interpretation Comments Calcium Level (test code = 37760-9) 8.9 8.4-10.2 [facility] CenterWhite Blood Flofh5202-73-83 07:16:00* Test Item Value Reference Range Interpretation Comments White Blood Count (test code = 6690-2) 4.73 4.8-10.8 L [facility] CenterRed Blood Skptx4264-04-14 07:16:00* Test Item Value Reference Range Interpretation Comments Red Blood Count (test code = 789-8) 3.23 3.6-5.1 L [facility] CenterHemoglobin2018-06-05 07:16:00* Test Item Value Reference Range Interpretation Comments Hemoglobin (test code = 60618-8) 10.0 12.0-16.0 L [facility] CenterHematocrit2018-06-05 07:16:00* Test Item Value Reference Range Interpretation Comments Hematocrit (test code = 4544-3) 29.8 34.2-44.1 L [facility] CenterMean Corpuscular Smzlyv7709-89-53 07:16:00* Test Item Value Reference Range Interpretation Comments Mean Corpuscular Volume (test code = 787-2) 92.3 81-99 [facility] CenterMean Corpuscular Itzvlrprro7409-79-74 07:16:00* Test Item Value Reference Range Interpretation Comments Mean Corpuscular Hemoglobin (test code = 785-6) 31.0 28-32 [facility] CenterMean Corpuscular Hemoglobin Concent 2017-07-15 07:16:00* Test Item Value Reference Range Interpretation Comments Mean Corpuscular Hemoglobin Concent (test code = 786-4) 33.6 31-35 [facility] CenterRed Cell Distribution Vldmp2698-80-29 07:16:00* Test Item Value Reference Range Interpretation Comments Red Cell Distribution Width (test code = 33110-5) 14.5 11.7 -14.4 H [facility] CenterPlatelet Ujifg7881-34-91 07:16:00* Test Item Value Reference Range Interpretation Comments Platelet Count (test code = 777-3) 229 140-360 [facility] CenterNeutrophils (%) (Auto)2017-07-15 07:16:00 * Test Item Value Reference Range Interpretation Comments Neutrophils (%) (Auto) (test code = 68561-3) 72.7 38.7-80.0 [facility] CenterLymphocytes (%) (Auto)2017-07-15 07:16:00 * Test Item Value Reference Range Interpretation Comments Lymphocytes (%) (Auto) (test code = 736-9) 14.4 18.0-39.1 L [facility] CenterMonocytes (%) (Auto)2017-07-15 07:16:00* Test Item Value Reference Range Interpretation Comments Monocytes (%) (Auto) (test code = 5905-5) 10.4 4.4-11.3 [facility] CenterEosinophils (%) (Auto)2017-07-15 07:16:00 * Test Item Value Reference Range Interpretation Comments Eosinophils (%) (Auto) (test code = 713-8) 1.7 0.0-6.0 [facility] CenterBasophils (%) (Auto)2017-07-15 07:16:00* Test Item Value Reference Range Interpretation Comments Basophils (%) (Auto) (test code = 706-2) 0.4 0.0-1.0 [facility] CenterIM GRANULOCYTES %2017-07-15 07:16:00* Test Item Value Reference Range Interpretation Comments IM GRANULOCYTES % (test code = IM GRANULOCYTES %) 0.4 0.0- 1.0 [facility] CenterNeutrophils # (Auto)2017-07-15 07:16:00* Test Item Value Reference Range Interpretation Comments Neutrophils # (Auto) (test code = 751-8) 3.4 2.1-6.9 [facility] CenterLymphocytes # (Auto)2017-07-15 07:16:00* Test Item Value Reference Range Interpretation Comments Lymphocytes # (Auto) (test code = 69911-8) 0.7 1.0-3.2 L [facility] CenterMonocytes # (Auto)2017-07-15 07:16:00* Test Item Value Reference Range Interpretation Comments Monocytes # (Auto) (test code = 742-7) 0.5 0.2-0.8 [facility] CenterEosinophils # (Auto)2017-07-15 07:16:00* Test Item Value Reference Range Interpretation Comments Eosinophils # (Auto) (test code = 711-2) 0.1 0.0-0.4 [facility] CenterBasophils # (Auto)2017-07-15 07:16:00* Test Item Value Reference Range Interpretation Comments Basophils # (Auto) (test code = 704-7) 0.0 0.0-0.1 [facility] CenterAbsolute Immature Granulocyte (auto 2017-07-15 07:16:00* Test Item Value Reference Range Interpretation Comments Absolute Immature Granulocyte (auto (carine t code = Absolute Immature Granulocyte (auto) 0.02 0-0.1 [facility] CenterBlood Gpelgbx2923-33-48 13:42:00* Test Item Value Reference Range Interpretation Comments Blood Culture (test code = 600-7) Organism: STAPH HOMINIS SUB HOMIN IS [facility] Occult Podyc2957-12-95 19:05:00* Test Item Value Reference Range Interpretation Comments Stool Occult Blood (test code = 2335-8) NEGATIVE NEGATIVE [facility] Occult Ygqyb2167-56-89 19:05:00* Test Item Value Reference Range Interpretation Comments Stool Occult Blood (test code = 2335-8) NEGATIVE NEGATIVE [facility] CenterVitamin B12 Vcfjh7108-87-73 16:17:00* Test Item Value Reference Range Interpretation Comments Vitamin B12 Level (test code = 09801-7) 279 213-816 [facility] CenterVitamin B12 Djymk8997-49-73 16:17:00* Test Item Value Reference Range Interpretation Comments Vitamin B12 Level (test code = 87250-3) 279 213-816 [facility] CenterFerritin2018-06-03 16:10:00* Test Item Value Reference Range Interpretation Comments Ferritin (test code = 2276-4) 203.03 4.63-204.00 [facility] CenterFerritin2018-06-03 16:10:00* Test Item Value Reference Range Interpretation Comments Ferritin (test code = 2276-4) 203.03 4.63-204.00 [facility] CenterIron Kyxkg1614-84-41 15:55:00* Test Item Value Reference Range Interpretation Comments Iron Level (test code = 2498-4) 52 50-170 [facility] CenterTotal Iron Binding Jszzzgwc5882-39-26 15:55:00* Test Item Value Reference Range Interpretation Comments Total Iron Binding Capacity (test code = 2500-7) 267 261-4 78 [facility] CenterPercent Iron Ackulzyzvf9073-81-19 15:55:00* Test Item Value Reference Range Interpretation Comments Percent Iron Saturation (test code = 2502-3) 19 15-50 [facility] CenterTransferrin2018-06-03 15:55:00* Test Item Value Reference Range Interpretation Comments Transferrin (test code = 3034-6) 191 180-382 [facility] CenterIron Mioth9539-98-80 15:55:00* Test Item Value Reference Range Interpretation Comments Iron Level (test code = 2498-4) 52 50-170 [facility] CenterTotal Iron Binding Telwxwdn6974-21-81 15:55:00* Test Item Value Reference Range Interpretation Comments Total Iron Binding Capacity (test code = 2500-7) 267 261-4 78 [facility] CenterPercent Iron Rhdictpilo6641-63-63 15:55:00* Test Item Value Reference Range Interpretation Comments Percent Iron Saturation (test code = 2502-3) 19 15-50 [facility] CenterTransferrin2018-06-03 15:55:00* Test Item Value Reference Range Interpretation Comments Transferrin (test code = 3034-6) 191 180-382 [facility] CenterBlood Yrdykkf6781-64-45 09:00:00* Test Item Value Reference Range Interpretation Comments Blood Culture (test code = 56514651) Growth detected. Culture wo rkup ordered. [facility] CenterCreatine Kinase DT4963-98-52 15:40:00* Test Item Value Reference Range Interpretation Comments Creatine Kinase MB (test code = 80864-5) 0.70 0-5.0 [facility] CenterTroponin M6650-23-86 15:40:00* Test Item Value Reference Range Interpretation Comments Troponin I (test code = KJZ8664) 0.011 0-0.300 [facility] CenterCreatine Xsohmo9370-16-90 15:30:00* Test Item Value Reference Range Interpretation Comments Creatine Kinase (test code = 2157-6) 16 29-168 L [facility] CenterUrine WPF9505-19-08 08:56:00* Test Item Value Reference Range Interpretation Comments Urine WBC (test code = 5821-4) 0-5 0-5 [facility] CenterUrine BJK7674-36-89 08:56:00* Test Item Value Reference Range Interpretation Comments Urine RBC (test code = 25534-5) 0-5 0-5 [facility] CenterUrine Sklabhhx8402-63-14 08:56:00* Test Item Value Reference Range Interpretation Comments Urine Bacteria (test code = 54800-8) RARE NONE [facility] CenterUrine Epithelial Efggh9308-71-94 08:56:00 * Test Item Value Reference Range Interpretation Comments Urine Epithelial Cells (test code = 04277-0) FEW NONE [facility] CenterUrine UOD7370-07-25 08:56:00* Test Item Value Reference Range Interpretation Comments Urine WBC (test code = 5821-4) 0-5 0-5 [facility] CenterUrine QRB4029-06-26 08:56:00* Test Item Value Reference Range Interpretation Comments Urine RBC (test code = 62578-1) 0-5 0-5 [facility] CenterUrine Iwfkvbdx5089-15-91 08:56:00* Test Item Value Reference Range Interpretation Comments Urine Bacteria (test code = 60016-3) RARE NONE [facility]rine Epithelial Aynwk0646-03-96 08:56:00 * Test Item Value Reference Range Interpretation Comments Urine Epithelial Cells (test code = 67827-0) FEW NONE [facility] Wwqvs5482-38-86 08:52:00* Test Item Value Reference Range Interpretation Comments Urine Color (test code = 5778-6) YELLOW YELLOW [facility] Nodbuuf2856-11-20 08:52:00* Test Item Value Reference Range Interpretation Comments Urine Clarity (test code = 53003-3) CLEAR CLEAR [facility] Specific Ztdlkum6157-38-66 08:52:00 * Test Item Value Reference Range Interpretation Comments Urine Specific [place] (test code = 5811-5) 1.020 1.010-1.02 5 [facility] vV9665-75-48 08:52:00* Test Item Value Reference Range Interpretation Comments Urine pH (test code = 80135-9) 8 5-7 H [facility] CenterU[facility] Leukocyte Ucxxftae2672-04-63 08:52:00* Test Item Value Reference Range Interpretation Comments Urine Leukocyte Esterase (test code = 5799-2) NEGATIVE NEGATIVE [facility] Xbklurk5600-66-05 08:52:00* Test Item Value Reference Range Interpretation Comments Urine Nitrite (test code = 02955-1) NEGATIVE NEGATIVE [facility] Arbnhwe1710-04-90 08:52:00* Test Item Value Reference Range Interpretation Comments Urine Protein (test code = 5804-0) 3+ NEGATIVE H [facility] Glucose (UA)2017-07-11 08:52:00* Test Item Value Reference Range Interpretation Comments Urine Glucose (UA) (test code = 2349-9) 2+ NEGATIVE H [facility] Qkyczec5783-29-48 08:52:00* Test Item Value Reference Range Interpretation Comments Urine Ketones (test code = 62909-7) NEGATIVE NEGATIVE [facility] Mjzoddaivmdp1492-00-03 08:52:00* Test Item Value Reference Range Interpretation Comments Urine Urobilinogen (test code = 05986-3) 0.2 0.2-1 [facility] Npibnvfvy3225-22-06 08:52:00* Test Item Value Reference Range Interpretation Comments Urine Bilirubin (test code = 1978-6) NEGATIVE NEGATIVE [facility] Wjreo8417-29-53 08:52:00* Test Item Value Reference Range Interpretation Comments Urine Blood (test code = 74212-4) NEGATIVE NEGATIVE [facility] Npwrm9252-17-73 08:52:00* Test Item Value Reference Range Interpretation Comments Urine Color (test code = 5778-6) YELLOW YELLOW [facility] Befpmqd5212-15-63 08:52:00* Test Item Value Reference Range Interpretation Comments Urine Clarity (test code = 64936-2) CLEAR CLEAR [facility] CenterU[facility] Specific Pohnydv5873-04-52 08:52:00 * Test Item Value Reference Range Interpretation Comments Urine Specific [place] (test code = 5811-5) 1.020 1.010-1.02 5 [facility] CenterU[facility] vS4291-16-12 08:52:00* Test Item Value Reference Range Interpretation Comments Urine pH (test code = 11483-4) 8 5-7 H [facility] Leukocyte Gnabbugq9357-41-16 08:52:00* Test Item Value Reference Range Interpretation Comments Urine Leukocyte Esterase (test code = 5799-2) NEGATIVE NEGATIVE [facility] Etyuese8386-37-65 08:52:00* Test Item Value Reference Range Interpretation Comments Urine Nitrite (test code = 02145-3) NEGATIVE NEGATIVE [facility] Jzwcozr1947-60-25 08:52:00* Test Item Value Reference Range Interpretation Comments Urine Protein (test code = 5804-0) 3+ NEGATIVE H [facility] Glucose (UA)2017-07-11 08:52:00* Test Item Value Reference Range Interpretation Comments Urine Glucose (UA) (test code = 2349-9) 2+ NEGATIVE H [facility] Kgloudq3896-54-30 08:52:00* Test Item Value Reference Range Interpretation Comments Urine Ketones (test code = 18666-5) NEGATIVE NEGATIVE [facility] Igvzzfetwwoi7524-30-40 08:52:00* Test Item Value Reference Range Interpretation Comments Urine Urobilinogen (test code = 29348-9) 0.2 0.2-1 [facility] Ujsilpaze2156 08:52:00* Test Item Value Reference Range Interpretation Comments Urine Bilirubin (test code = 1978-6) NEGATIVE NEGATIVE [facility] Lldwv1508-54-93 08:52:00* Test Item Value Reference Range Interpretation Comments Urine Blood (test code = 76894-4) NEGATIVE NEGATIVE [facility] CenterTotal Uuwxfxenn6886-18-59 06:41:00* Test Item Value Reference Range Interpretation Comments Total Bilirubin (test code = 1975-2) 0.5 0.2-1.2 [facility] CenterAspartate Amino Transf (AST/SGOT) 2017-07-11 06:41:00* Test Item Value Reference Range Interpretation Comments Aspartate Amino Transf (AST/SGOT) (test code = Aspartate Amino Transf (AST/SGOT)) 7 5-34 [facility] CenterAlanine Aminotransferase (ALT/SGPT) 2017-07-11 06:41:00* Test Item Value Reference Range Interpretation Comments Alanine Aminotransferase (ALT/SGPT) (test code = 1742-6) 9 0-55 [facility] CenterTotal Yemttsl9104-55-24 06:41:00* Test Item Value Reference Range Interpretation Comments Total Protein (test code = 2885-2) 5.3 6.5-8.1 L [facility] CenterAlbumin2018-06-01 06:41:00* Test Item Value Reference Range Interpretation Comments Albumin (test code = 1751-7) 2.7 3.5-5.0 L [facility] CenterGlobulin2018-06-01 06:41:00* Test Item Value Reference Range Interpretation Comments Globulin (test code = 87088-3) 2.6 2.3-3.5 [facility] CenterAlbumin/Globulin Twozx8392-00-15 06:41:00 * Test Item Value Reference Range Interpretation Comments Albumin/Globulin Ratio (test code = 1759-0) 1.0 0.8-2.0 [facility] CenterAlkaline Jkqdlnmexrn8423-87-80 06:41:00* Test Item Value Reference Range Interpretation Comments Alkaline Phosphatase (test code = 6768-6) 59 40-150 [facility] CenterTriglycerides Pwsot4067-26-63 06:41:00* Test Item Value Reference Range Interpretation Comments Triglycerides Level (test code = 2571-8) 133 0-149 [facility] CenterCholesterol Lrtiw5159-89-16 06:41:00* Test Item Value Reference Range Interpretation Comments Cholesterol Level (test code = 2093-3) 188 0-199 Less than 200 mg/dL Low Afjg556 - 239 mg/dL Borderline Bmsq209 m g/dl and greater High Risk [facility] CenterLDL Fzvlsiqcgux1749-16-88 06:41:00* Test Item Value Reference Range Interpretation Comments LDL Cholesterol (test code = 2089-1) 94 60-130 [facility] Poeuelqaskm7561-00-36 06:41:00* Test Item Value Reference Range Interpretation Comments HDL Cholesterol (test code = 2085-9) 67 40-60 H [facility] CenterCholesterol/HDL Dctxb3308-02-03 06:41:00 * Test Item Value Reference Range Interpretation Comments Cholesterol/HDL Ratio (test code = 9830-1) 2.8 3.0-3.6 L [facility] CenterTriglycerides Luuvt0000-72-86 06:41:00* Test Item Value Reference Range Interpretation Comments Triglycerides Level (test code = 2571-8) 133 0-149 [facility] CenterCholesterol Rtuwn3964-75-26 06:41:00* Test Item Value Reference Range Interpretation Comments Cholesterol Level (test code = 2093-3) 188 0-199 Less than 200 mg/dL Low Feqi562 - 239 mg/dL Borderline Hbnr483 m g/dl and greater High Risk [facility] CenterLDL Wzwidmrbfmr2948-13-86 06:41:00* Test Item Value Reference Range Interpretation Comments LDL Cholesterol (test code = 2089-1) 94 60-130 [facility] Vaubjrkkwqm1021-12-39 06:41:00* Test Item Value Reference Range Interpretation Comments HDL Cholesterol (test code = 2085-9) 67 40-60 H [facility] CenterCholesterol/HDL Fijsn5163-53-30 06:41:00 * Test Item Value Reference Range Interpretation Comments Cholesterol/HDL Ratio (test code = 9830-1) 2.8 3.0-3.6 L [facility] CenterProthrombin Axbc5081-99-38 02:45:00* Test Item Value Reference Range Interpretation Comments Prothrombin Time (test code = 5902-2) 13.2 11.9-14.5 [facility] CenterProthromb Time International Ratio 2017-07-11 02:45:00* Test Item Value Reference Range Interpretation Comments Prothromb Time International Ratio (test code = 6301-6) 1.08 Oral Anticoagulant Therapy INR Values:1. Low Intensity Therapy 1.5 - 2.02 . Moderate Intensity Therapy 2.0 - 3.03. High Intensity Therapy(1) 2.5 - 3. 54. High Intensity Therapy(2) 3.0 - 4.05. Panic Value INR > 5.0 [facility] CenterActivated Partial Thromboplast Time 2017-07-11 02:45:00* Test Item Value Reference Range Interpretation Comments Activated Partial Thromboplast Time (test code = 84740-1) 30.1 23.8-35.5 [facility] CenterProthrombin Indv0162-23-36 02:45:00* Test Item Value Reference Range Interpretation Comments Prothrombin Time (test code = 5902-2) 13.2 11.9-14.5 [facility] CenterProthromb Time International Ratio 2017-07-11 02:45:00* Test Item Value Reference Range Interpretation Comments Prothromb Time International Ratio (test code = 6301-6) 1.08 Oral Anticoagulant Therapy INR Values:1. Low Intensity Therapy 1.5 - 2.02 . Moderate Intensity Therapy 2.0 - 3.03. High Intensity Therapy(1) 2.5 - 3. 54. High Intensity Therapy(2) 3.0 - 4.05. Panic Value INR > 5.0 [facility] CenterActivated Partial Thromboplast Time 2017-07-11 02:45:00* Test Item Value Reference Range Interpretation Comments Activated Partial Thromboplast Time (test code = 75281-3) 30.1 23.8-35.5 [facility] CenterB-Type Natriuretic Ynovqdw8604-65-20 21:58:00* Test Item Value Reference Range Interpretation Comments B-Type Natriuretic Peptide (test code = 59454-0) 1694.2 0-100 H [facility] CenterMagnesium Lpjnw5549-64-47 21:57:00* Test Item Value Reference Range Interpretation Comments Magnesium Level (test code = 19138-2) 1.8 1.3-2.1 [facility] CenterMaesium Pobtd7462-70-76 21:57:00* Test Item Value Reference Range Interpretation Comments Magnesium Level (test code = 12046-8) 1.8 1.3-2.1 [facility] CenterLactic Acid Gxknc8609-66-51 21:50:00* Test Item Value Reference Range Interpretation Comments Lactic Acid Level (test code = Lactic Acid Level) 10.5 4.5- 19.8 [facility] CenterLactic Acid Djngf6994-76-81 21:50:00* Test Item Value Reference Range Interpretation Comments Lactic Acid Level (test code = Lactic Acid Level) 10.5 4.5- 19.8 [facility] CenterArterial Blood eI5295-40-41 21:18:00* Test Item Value Reference Range Interpretation Comments Arterial Blood pH (test code = 2744-1) 7.47 7.31-7.41 H [facility] CenterArterial Blood Partial Pressure CO2 2017-07-10 21:18:00* Test Item Value Reference Range Interpretation Comments Arterial Blood Partial Pressure CO2 (test code = 2018-8) 42 41-51 [facility] CenterArterial Blood Partial Pressure O2 2017-07-10 21:18:00* Test Item Value Reference Range Interpretation Comments Arterial Blood Partial Pressure O2 (test code = 2018-8) 87 80-105 [facility] CenterArterial Blood FOE54040-90-20 21:18:00* Test Item Value Reference Range Interpretation Comments Arterial Blood HCO3 (test code = 1960-4) 31 23-28 H [facility] CenterArterial Blood Base Owxghy8351-68-62 21:18:00* Test Item Value Reference Range Interpretation Comments Arterial Blood Base Excess (test code = 1925-7) 7.0 -2-3 H [facility] CenterArterial Blood Oxygen Saturation 2017-07-10 21:18:00* Test Item Value Reference Range Interpretation Comments Arterial Blood Oxygen Saturation (test code = 2708-6) 97.0 95-98 [facility] CenterFiO22018-05-31 21:18:00* Test Item Value Reference Range Interpretation Comments FiO2 (test code = FiO2) 28 PT ON 2L NC99%/74HR/20RRKnapp Medical CenterArterial Blood pH 2017-07-10 21:18:00* Test Item Value Reference Range Interpretation Comments Arterial Blood pH (test code = 2744-1) 7.47 7.31-7.41 H [facility] CenterArterial Blood Partial Pressure CO2 2017-07-10 21:18:00* Test Item Value Reference Range Interpretation Comments Arterial Blood Partial Pressure CO2 (test code = 2018-) 42 41-51 [facility] CenterArterial Blood Partial Pressure O2 2017-07-10 21:18:00* Test Item Value Reference Range Interpretation Comments Arterial Blood Partial Pressure O2 (test code = 2018-) 87 80-105 [facility] CenterArterial Blood DFQ36337-85-65 21:18:00* Test Item Value Reference Range Interpretation Comments Arterial Blood HCO3 (test code = 1960-4) 31 23-28 H [facility] CenterArterial Blood Base Ckppyj5751-77-98 21:18:00* Test Item Value Reference Range Interpretation Comments Arterial Blood Base Excess (test code = 1925-7) 7.0 -2-3 H [facility] CenterArterial Blood Oxygen Saturation 2017-07-10 21:18:00* Test Item Value Reference Range Interpretation Comments Arterial Blood Oxygen Saturation (test code = 2708-6) 97.0 95-98 [facility] CenterFiO22018-05-31 21:18:00* Test Item Value Reference Range Interpretation Comments FiO2 (test code = FiO2) 28 PT ON 2L NC99%/74HR/[address] [place], [place] [address]Bedside Glucose 2017-06-26 16:00:00* Test Item Value Reference Range Interpretation Comments Bedside Glucose (test code = 08988-3) 249 70-120 H Meter ID: [id number] Medical CenterDifferential Total Cells Kkapoao8460-21-80 07:47:00* Test Item Value Reference Range Interpretation Comments Differential Total Cells Counted (test code = Differen tial Total Cells Counted) 100 [facility] CenterNeutrophils % (Manual)2017-06-26 07:47:00 * Test Item Value Reference Range Interpretation Comments Neutrophils % (Manual) (test code = 75179-6) 90 40-74 H [facility] CenterLymphocytes % (Manual)2017-06-26 07:47:00 * Test Item Value Reference Range Interpretation Comments Lymphocytes % (Manual) (test code = 737-7) 10 19-48 L [facility] CenterPlatelet Usdraoqh1809-56-96 07:47:00* Test Item Value Reference Range Interpretation Comments Platelet Estimate (test code = 14539-3) ADEQUATE [facility] CenterPlatelet Morphology Aoekkjm1818-64-01 07:47:00* Test Item Value Reference Range Interpretation Comments Platelet Morphology Comment (test code = 20552-7) NORMAL [facility] CenterHypochromasia2018-05-17 07:47:00* Test Item Value Reference Range Interpretation Comments Hypochromasia (test code = 728-6) SLIGHT [facility] CenterRed Cell Morphology Zmrzhgb7831-20-32 07:47:00* Test Item Value Reference Range Interpretation Comments Red Cell Morphology Comment (test code = 6742-1) NORMAL [facility] CenterDifferential Total Cells Counted 2017-06-26 07:47:00* Test Item Value Reference Range Interpretation Comments Differential Total Cells Counted (test code = Differen tial Total Cells Counted) 100 [facility] CenterNeutrophils % (Manual)2017-06-26 07:47:00 * Test Item Value Reference Range Interpretation Comments Neutrophils % (Manual) (test code = 34327-1) 90 40-74 H [facility] CenterLymphocytes % (Manual)2017-06-26 07:47:00 * Test Item Value Reference Range Interpretation Comments Lymphocytes % (Manual) (test code = 737-7) 10 19-48 L [facility] CenterPlatelet Zvyqkwaf1285-18-70 07:47:00* Test Item Value Reference Range Interpretation Comments Platelet Estimate (test code = 48679-4) ADEQUATE [facility] CenterPlatelet Morphology Uwyqzra0244-90-44 07:47:00* Test Item Value Reference Range Interpretation Comments Platelet Morphology Comment (test code = 12952-6) NORMAL [facility] CenterHypochromasia2018-05-17 07:47:00* Test Item Value Reference Range Interpretation Comments Hypochromasia (test code = 728-6) SLIGHT [facility] CenterRed Cell Morphology Hatvojp4017-54-78 07:47:00* Test Item Value Reference Range Interpretation Comments Red Cell Morphology Comment (test code = 6742-1) NORMAL [facility] CenterDifferential Total Cells Counted 2017-06-26 07:47:00* Test Item Value Reference Range Interpretation Comments Differential Total Cells Counted (test code = Differnandini tial Total Cells Counted) 100 [facility] CenterNeutrophils % (Manual)2017-06-26 07:47:00 * Test Item Value Reference Range Interpretation Comments Neutrophils % (Manual) (test code = 19095-0) 90 40-74 H [facility] CenterLymphocytes % (Manual)2017-06-26 07:47:00 * Test Item Value Reference Range Interpretation Comments Lymphocytes % (Manual) (test code = 737-7) 10 19-48 L [facility] CenterPlatelet Hmuykgtw5339-27-82 07:47:00* Test Item Value Reference Range Interpretation Comments Platelet Estimate (test code = 43560-0) ADEQUATE [facility] CenterPlatelet Morphology Zugeqpq0033-47-58 07:47:00* Test Item Value Reference Range Interpretation Comments Platelet Morphology Comment (test code = 04345-2) NORMAL [facility] CenterHypochromasia2018-05-17 07:47:00* Test Item Value Reference Range Interpretation Comments Hypochromasia (test code = 728-6) SLIGHT [facility] CenterRed Cell Morphology Jqtrgym8074-73-68 07:47:00* Test Item Value Reference Range Interpretation Comments Red Cell Morphology Comment (test code = 6742-1) NORMAL [facility] Huybd8427-76-49 07:27:00* Test Item Value Reference Range Interpretation Comments Sodium Level (test code = 2951-2) 136 136-145 [facility] CenterPotassium Wxqng0363-76-63 07:27:00* Test Item Value Reference Range Interpretation Comments Potassium Level (test code = 2823-3) 4.4 3.5-5.1 [facility] CenterChloride Jquos8170-91-93 07:27:00* Test Item Value Reference Range Interpretation Comments Chloride Level (test code = 2075-0) 99 98-107 [facility] CenterCarbon Dioxide Nsffz0504-97-31 07:27:00* Test Item Value Reference Range Interpretation Comments Carbon Dioxide Level (test code = 2028-9) 26 22-29 [facility] CenterAnion Emj8018-27-59 07:27:00* Test Item Value Reference Range Interpretation Comments Anion Gap (test code = 89903-3) 15.4 8-16 [facility] CenterBlood Urea Pegoarjb6557-72-19 07:27:00* Test Item Value Reference Range Interpretation Comments Blood Urea Nitrogen (test code = 3094-0) 57 7-26 H [facility] CenterCreatinine2018-05-17 07:27:00* Test Item Value Reference Range Interpretation Comments Creatinine (test code = 2160-0) 5.05 0.57-1.11 H [facility] CenterBUN/Creatinine Sxagu6795-48-71 07:27:00* Test Item Value Reference Range Interpretation Comments BUN/Creatinine Ratio (test code = 3097-3) 11 6-25 [facility] CenterEstimat Glomerular Filtration Rate 2017-06-26 07:27:00* Test Item Value Reference Range Interpretation Comments Estimat Glomerular Filtration Rate (test code = 07644-1) 9 >60 L Ranges were taken from the National Kidney Disease Education Program and the [facility] [employer] literature.Reference ranges:60 or greater: Rmusal70-12 ( for 3 consecutive months): Chronic kidney disease 15 or less: Kidney failureKnapp Medical CenterGlucose Obfia0707-11-03 07:27:00* Test Item Value Reference Range Interpretation Comments Glucose Level (test code = QIM7044) 176 74-118 H [facility] CenterCalcium Qxhvy1141-57-16 07:27:00* Test Item Value Reference Range Interpretation Comments Calcium Level (test code = 66560-5) 8.6 8.4-10.2 [facility] CenterWhite Blood Hxxod8118-09-63 06:53:00* Test Item Value Reference Range Interpretation Comments White Blood Count (test code = 6690-2) 6.14 4.8-10.8 [facility] CenterRed Blood Pilvv1890-28-91 06:53:00* Test Item Value Reference Range Interpretation Comments Red Blood Count (test code = 789-8) 2.86 3.6-5.1 L [facility] CenterHemoglobin2018-05-17 06:53:00* Test Item Value Reference Range Interpretation Comments Hemoglobin (test code = 56980-3) 8.8 12.0-16.0 L [facility] CenterHematocrit2018-05-17 06:53:00* Test Item Value Reference Range Interpretation Comments Hematocrit (test code = 4544-3) 26.3 34.2-44.1 L [facility] CenterMean Corpuscular Zrmdiz3097-53-37 06:53:00* Test Item Value Reference Range Interpretation Comments Mean Corpuscular Volume (test code = 787-2) 92.0 81-99 [facility] CenterMean Corpuscular Oyfvekqfnn9707-38-55 06:53:00* Test Item Value Reference Range Interpretation Comments Mean Corpuscular Hemoglobin (test code = 785-6) 30.8 28-32 [facility] CenterMean Corpuscular Hemoglobin Concent 2017-06-26 06:53:00* Test Item Value Reference Range Interpretation Comments Mean Corpuscular Hemoglobin Concent (test code = 786-4) 33.5 31-35 [facility] CenterRed Cell Distribution Mvstf5509-90-61 06:53:00* Test Item Value Reference Range Interpretation Comments Red Cell Distribution Width (test code = 90157-8) 13.2 11.7 -14.4 [facility] CenterPlatelet Imuyz5022-93-28 06:53:00* Test Item Value Reference Range Interpretation Comments Platelet Count (test code = 777-3) 239 140-360 [facility] CenterNeutrophils (%) (Auto)2017-06-26 06:53:00 * Test Item Value Reference Range Interpretation Comments Neutrophils (%) (Auto) (test code = 27731-3) 85.6 38.7-80.0 H [facility] CenterLymphocytes (%) (Auto)2017-06-26 06:53:00 * Test Item Value Reference Range Interpretation Comments Lymphocytes (%) (Auto) (test code = 736-9) 9.4 18.0-39.1 L [facility] CenterMonocytes (%) (Auto)2017-06-26 06:53:00* Test Item Value Reference Range Interpretation Comments Monocytes (%) (Auto) (test code = 5905-5) 4.2 4.4-11.3 L [facility] CenterEosinophils (%) (Auto)2017-06-26 06:53:00 * Test Item Value Reference Range Interpretation Comments Eosinophils (%) (Auto) (test code = 713-8) 0.0 0.0-6.0 [facility] CenterBasophils (%) (Auto)2017-06-26 06:53:00* Test Item Value Reference Range Interpretation Comments Basophils (%) (Auto) (test code = 706-2) 0.0 0.0-1.0 [facility] CenterIM GRANULOCYTES %2017-06-26 06:53:00* Test Item Value Reference Range Interpretation Comments IM GRANULOCYTES % (test code = IM GRANULOCYTES %) 0.8 0.0- 1.0 [facility] CenterNeutrophils # (Auto)2017-06-26 06:53:00* Test Item Value Reference Range Interpretation Comments Neutrophils # (Auto) (test code = 751-8) 5.3 2.1-6.9 [facility] CenterLymphocytes # (Auto)2017-06-26 06:53:00* Test Item Value Reference Range Interpretation Comments Lymphocytes # (Auto) (test code = 44468-1) 0.6 1.0-3.2 L [facility] CenterMonocytes # (Auto)2017-06-26 06:53:00* Test Item Value Reference Range Interpretation Comments Monocytes # (Auto) (test code = 742-7) 0.3 0.2-0.8 [facility] CenterEosinophils # (Auto)2017-06-26 06:53:00* Test Item Value Reference Range Interpretation Comments Eosinophils # (Auto) (test code = 711-2) 0.0 0.0-0.4 [facility] CenterBasophils # (Auto)2017-06-26 06:53:00* Test Item Value Reference Range Interpretation Comments Basophils # (Auto) (test code = 704-7) 0.0 0.0-0.1 [facility] CenterAbsolute Immature Granulocyte (auto 2017-06-26 06:53:00* Test Item Value Reference Range Interpretation Comments Absolute Immature Granulocyte (auto (carine t code = Absolute Immature Granulocyte (auto) 0.05 0-0.1 [facility] CenterCreatine Kinase OX4816-85-58 15:27:00* Test Item Value Reference Range Interpretation Comments Creatine Kinase MB (test code = 92974-3) 1.90 0-5.0 [facility] CenterTroponin E1656-27-93 15:27:00* Test Item Value Reference Range Interpretation Comments Troponin I (test code = JGT5044) 0.168 0-0.300 [facility] CenterCreatine Ohelux4288-15-36 15:20:00* Test Item Value Reference Range Interpretation Comments Creatine Kinase (test code = 2157-6) 20 29-168 L [facility] CenterB-Type Natriuretic Eabzsdg7131-78-43 15:35:00* Test Item Value Reference Range Interpretation Comments B-Type Natriuretic Peptide (test code = 71897-2) 1512.7 0-100 H [facility] CenterPhosphorus Retrs0656-61-75 15:24:00* Test Item Value Reference Range Interpretation Comments Phosphorus Level (test code = CIW2880) 2.6 2.3-4.7 [facility] CenterMagnesium Ngqdc5688-36-08 15:24:00* Test Item Value Reference Range Interpretation Comments Magnesium Level (test code = 40185-6) 1.7 1.3-2.1 [facility] CenterTotal Enxzbokbb6181-29-75 15:24:00* Test Item Value Reference Range Interpretation Comments Total Bilirubin (test code = 1975-2) 0.7 0.2-1.2 [facility] CenterAspartate Amino Transf (AST/SGOT) 2017-06-24 15:24:00* Test Item Value Reference Range Interpretation Comments Aspartate Amino Transf (AST/SGOT) (test code = Aspartate Amino Transf (AST/SGOT)) 8 5-34 [facility] CenterAlanine Aminotransferase (ALT/SGPT) 2017-06-24 15:24:00* Test Item Value Reference Range Interpretation Comments Alanine Aminotransferase (ALT/SGPT) (test code = 1742-6) 6 0-55 [facility] CenterTotal Hosapxp1870-08-27 15:24:00* Test Item Value Reference Range Interpretation Comments Total Protein (test code = 2885-2) 6.6 6.5-8.1 [facility] CenterAlbumin2018-05-15 15:24:00* Test Item Value Reference Range Interpretation Comments Albumin (test code = 1751-7) 3.3 3.5-5.0 L [facility] CenterGlobulin2018-05-15 15:24:00* Test Item Value Reference Range Interpretation Comments Globulin (test code = 34828-6) 3.3 2.3-3.5 [facility] CenterAlbumin/Globulin Zwvgh9295-88-57 15:24:00 * Test Item Value Reference Range Interpretation Comments Albumin/Globulin Ratio (test code = 1759-0) 1.0 0.8-2.0 [facility] CenterAlkaline Aajgmopcooc3759-25-05 15:24:00* Test Item Value Reference Range Interpretation Comments Alkaline Phosphatase (test code = 6768-6) 65 40-150 [facility] CenterPhosphorus Rmmtm7994-87-79 15:24:00* Test Item Value Reference Range Interpretation Comments Phosphorus Level (test code = JYY5415) 2.6 2.3-4.7 [facility] CenterPhosphorus Ncwrl7686-81-38 15:24:00* Test Item Value Reference Range Interpretation Comments Phosphorus Level (test code = NMU9520) 2.6 2.3-4.7 [facility] CenterBedside Ywcamry2137-24-22 17:41:00* Test Item Value Reference Range Interpretation Comments Bedside Glucose (test code = 25696-3) 176 70-120 H Meter ID: [id number] University of [facility] Cancer Centerodium Level 2017-04-28 07:06:00* Test Item Value Reference Range Interpretation Comments Sodium Level (test code = 2951-2) 133 136-145 L [facility] CenterPotassium Uryka1488-87-21 07:06:00* Test Item Value Reference Range Interpretation Comments Potassium Level (test code = 2823-3) 4.1 3.5-5.1 [facility] CenterChloride Szffm1208-62-34 07:06:00* Test Item Value Reference Range Interpretation Comments Chloride Level (test code = 2075-0) 97 98-107 L [facility] CenterCarbon Dioxide Lmrba4029-43-23 07:06:00* Test Item Value Reference Range Interpretation Comments Carbon Dioxide Level (test code = 2028-9) 25 22-29 [facility] CenterAnion Iov6006-12-83 07:06:00* Test Item Value Reference Range Interpretation Comments Anion Gap (test code = 64431-9) 15.1 8-16 [facility] CenterBlood Urea Ttdqcgmn3766-38-83 07:06:00* Test Item Value Reference Range Interpretation Comments Blood Urea Nitrogen (test code = 3094-0) 34 7-26 H [facility] CenterCreatinine2018-03-19 07:06:00* Test Item Value Reference Range Interpretation Comments Creatinine (test code = 2160-0) 6.83 0.57-1.11 H [facility] CenterBUN/Creatinine Kjxmt9865-26-61 07:06:00* Test Item Value Reference Range Interpretation Comments BUN/Creatinine Ratio (test code = 3097-3) 5 6-25 L [facility] CenterEstimat Glomerular Filtration Rate 2017-04-28 07:06:00* Test Item Value Reference Range Interpretation Comments Estimat Glomerular Filtration Rate (test code = 49977-5) 6 >60 L Ranges were taken from the National Kidney Disease Education Program and the [facility] Kidney Foundation literature.Reference ranges:60 or greater: Ihylll63-61 ( for 3 consecutive months): Chronic kidney disease 15 or less: Kidney failureKnapp Medical CenterGlucose Pairk7779-24-08 07:06:00* Test Item Value Reference Range Interpretation Comments Glucose Level (test code = REL4607) 151 74-118 H [facility] CenterCalcium Royqb5226-65-01 07:06:00* Test Item Value Reference Range Interpretation Comments Calcium Level (test code = 33599-4) 9.1 8.4-10.2 [facility] CenterWhite Blood Kradf0674-45-81 06:39:00* Test Item Value Reference Range Interpretation Comments White Blood Count (test code = 6690-2) 4.96 4.8-10.8 [facility] CenterRed Blood Yqcfk3098-22-88 06:39:00* Test Item Value Reference Range Interpretation Comments Red Blood Count (test code = 789-8) 3.06 3.6-5.1 L [facility] CenterHemoglobin2018-03-19 06:39:00* Test Item Value Reference Range Interpretation Comments Hemoglobin (test code = 23537-1) 9.8 12.0-16.0 L [facility] CenterHematocrit2018-03-19 06:39:00* Test Item Value Reference Range Interpretation Comments Hematocrit (test code = 4544-3) 29.3 34.2-44.1 L [facility] CenterMean Corpuscular Aybspf3901-41-80 06:39:00* Test Item Value Reference Range Interpretation Comments Mean Corpuscular Volume (test code = 787-2) 95.8 81-99 [facility] CenterMean Corpuscular Fvsnoyolqd0445-08-08 06:39:00* Test Item Value Reference Range Interpretation Comments Mean Corpuscular Hemoglobin (test code = 785-6) 32.0 28-32 [facility] CenterMean Corpuscular Hemoglobin Concent 2017-04-28 06:39:00* Test Item Value Reference Range Interpretation Comments Mean Corpuscular Hemoglobin Concent (test code = 786-4) 33.4 31-35 [facility] CenterRed Cell Distribution Ixffp8158-59-17 06:39:00* Test Item Value Reference Range Interpretation Comments Red Cell Distribution Width (test code = 45609-4) 13.2 11.7 -14.4 [facility] CenterPlatelet Svtks1587-02-58 06:39:00* Test Item Value Reference Range Interpretation Comments Platelet Count (test code = 777-3) 320 140-360 [facility] CenterNeutrophils (%) (Auto)2017-04-28 06:39:00 * Test Item Value Reference Range Interpretation Comments Neutrophils (%) (Auto) (test code = 27615-3) 56.7 38.7-80.0 [facility] CenterLymphocytes (%) (Auto)2017-04-28 06:39:00 * Test Item Value Reference Range Interpretation Comments Lymphocytes (%) (Auto) (test code = 736-9) 22.4 18.0-39.1 [facility] CenterMonocytes (%) (Auto)2017-04-28 06:39:00* Test Item Value Reference Range Interpretation Comments Monocytes (%) (Auto) (test code = 5905-5) 14.9 4.4-11.3 H [facility] CenterEosinophils (%) (Auto)2017-04-28 06:39:00 * Test Item Value Reference Range Interpretation Comments Eosinophils (%) (Auto) (test code = 713-8) 5.0 0.0-6.0 [facility] CenterBasophils (%) (Auto)2017-04-28 06:39:00* Test Item Value Reference Range Interpretation Comments Basophils (%) (Auto) (test code = 706-2) 0.8 0.0-1.0 [facility] CenterIM GRANULOCYTES %2017-04-28 06:39:00* Test Item Value Reference Range Interpretation Comments IM GRANULOCYTES % (test code = IM GRANULOCYTES %) 0.2 0.0- 1.0 [facility] CenterNeutrophils # (Auto)2017-04-28 06:39:00* Test Item Value Reference Range Interpretation Comments Neutrophils # (Auto) (test code = 751-8) 2.8 2.1-6.9 [facility] CenterLymphocytes # (Auto)2017-04-28 06:39:00* Test Item Value Reference Range Interpretation Comments Lymphocytes # (Auto) (test code = 00823-3) 1.1 1.0-3.2 [facility] CenterMonocytes # (Auto)2017-04-28 06:39:00* Test Item Value Reference Range Interpretation Comments Monocytes # (Auto) (test code = 742-7) 0.7 0.2-0.8 [facility] CenterEosinophils # (Auto)2017-04-28 06:39:00* Test Item Value Reference Range Interpretation Comments Eosinophils # (Auto) (test code = 711-2) 0.3 0.0-0.4 [facility] CenterBasophils # (Auto)2017-04-28 06:39:00* Test Item Value Reference Range Interpretation Comments Basophils # (Auto) (test code = 704-7) 0.0 0.0-0.1 [facility] CenterAbsolute Immature Granulocyte (auto 2017-04-28 06:39:00* Test Item Value Reference Range Interpretation Comments Absolute Immature Granulocyte (auto (carine t code = Absolute Immature Granulocyte (auto) 0.01 0-0.1 [facility] CenterTotal Ueqhqlnuc2481-51-61 09:59:00* Test Item Value Reference Range Interpretation Comments Total Bilirubin (test code = 1975-2) 0.4 0.2-1.2 [facility] CenterAspartate Amino Transf (AST/SGOT) 2017-04-26 09:59:00* Test Item Value Reference Range Interpretation Comments Aspartate Amino Transf (AST/SGOT) (test code = Aspartate Amino Transf (AST/SGOT)) 13 5-34 [facility] CenterAlanine Aminotransferase (ALT/SGPT) 2017-04-26 09:59:00* Test Item Value Reference Range Interpretation Comments Alanine Aminotransferase (ALT/SGPT) (test code = 1742-6) 7 0-55 [facility] CenterTotal Ctqothe9992-76-18 09:59:00* Test Item Value Reference Range Interpretation Comments Total Protein (test code = 2885-2) 6.1 6.5-8.1 L [facility] CenterAlbumin2018-03-17 09:59:00* Test Item Value Reference Range Interpretation Comments Albumin (test code = 1751-7) 2.5 3.5-5.0 L [facility] CenterGlobulin2018-03-17 09:59:00* Test Item Value Reference Range Interpretation Comments Globulin (test code = 58805-9) 3.6 2.3-3.5 H [facility] CenterAlbumin/Globulin Tywdk0849-70-63 09:59:00 * Test Item Value Reference Range Interpretation Comments Albumin/Globulin Ratio (test code = 1759-0) 0.7 0.8-2.0 L [facility] CenterAlkaline Wkywadkurou6375-42-86 09:59:00* Test Item Value Reference Range Interpretation Comments Alkaline Phosphatase (test code = 6768-6) 69 40-150 [facility] CenterArterial Blood wD3595-48-56 02:08:00* Test Item Value Reference Range Interpretation Comments Arterial Blood pH (test code = 2744-1) 7.42 7.31-7.41 H [facility] CenterArterial Blood Partial Pressure CO2 2017-04-26 02:08:00* Test Item Value Reference Range Interpretation Comments Arterial Blood Partial Pressure CO2 (test code = 2019-8) 44 41-51 [facility] CenterArterial Blood Partial Pressure O2 2017-04-26 02:08:00* Test Item Value Reference Range Interpretation Comments Arterial Blood Partial Pressure O2 (test code = 2019-8) 56 80-105 L [facility] Blood YCV16173-91-39 02:08:00* Test Item Value Reference Range Interpretation Comments Arterial Blood HCO3 (test code = 1960-4) 29 23-28 H [facility] CenterArterial Blood Base Prntsu3741-53-03 02:08:00* Test Item Value Reference Range Interpretation Comments Arterial Blood Base Excess (test code = 1925-7) 4.0 -2-3 H [facility] CenterArterial Blood Oxygen Saturation 2017-04-26 02:08:00* Test Item Value Reference Range Interpretation Comments Arterial Blood Oxygen Saturation (test code = 2708-6) 89.0 95-98 L Pt on 3L [place].[facility] CenterArterial Blood pW9118-07-04 02:08:00* Test Item Value Reference Range Interpretation Comments Arterial Blood pH (test code = 2744-1) 7.42 7.31-7.41 H [facility] CenterArterial Blood Partial Pressure CO2 2017-04-26 02:08:00* Test Item Value Reference Range Interpretation Comments Arterial Blood Partial Pressure CO2 (test code = 2019-8) 44 41-51 [facility] CenterArterial Blood Partial Pressure O2 2017-04-26 02:08:00* Test Item Value Reference Range Interpretation Comments Arterial Blood Partial Pressure O2 (test code = 2018-8) 56 80-105 [facility] ICM37302-88-43 02:08:00* Test Item Value Reference Range Interpretation Comments Arterial Blood HCO3 (test code = 1960-4) 29 23-28 H [facility] CenterArterial Blood Base Yinzzw0976-32-51 02:08:00* Test Item Value Reference Range Interpretation Comments Arterial Blood Base Excess (test code = 1925-7) 4.0 -2-3 H [facility] CenterArterial Blood Oxygen Saturation 2017-04-26 02:08:00* Test Item Value Reference Range Interpretation Comments Arterial Blood Oxygen Saturation (test code = 2708-6) 89.0 95-98 L Pt on 3L [place].[facility] CenterB-Type Natriuretic Peptide 2017-04-25 10:18:00* Test Item Value Reference Range Interpretation Comments B-Type Natriuretic Peptide (test code = 42732-8) 892.0 0-100 H [facility] CenterHekaiser [facility] B Surface Antibody, Quant 2017-04-25 08:37:00* Test Item Value Reference Range Interpretation Comments Hepatitis B Surface Antibody, Quant (test code = 5194-6) -3.1 Immunity>9.9 L Status of Immunity Anti-HBs Level Inconsistent with Immunity 0.0 - 9.9Consistent with Immunity >9.9[facility] B Core Total Gshysjlo3736-41-19 08:37:00* Test Item Value Reference Range Interpretation Comments Hepatitis B Core Total Antibody (test code = 50697-4) Negative Negative Performed at: [employer] [facility] [id number] Director: Edmond Mcneil MD, Phone: [phone] Scott & White [facility] B Surface Mtzpfzc2669-61-62 08:37:00* Test Item Value Reference Range Interpretation Comments Hepatitis B Surface Antigen (test code = 5196-1) Negative Negat henyr [facility] B Surface Antibody, Quant 2017-04-25 08:37:00* Test Item Value Reference Range Interpretation Comments Hepatitis B Surface Antibody, Quant (test code = 5194-6) -3.1 Immunity>9.9 L Status of Immunity Anti-HBs Level Inconsistent with Immunity 0.0 - 9.9Consistent with Immunity >9.9[facility] B Core Total Ofvngxyt7344-03-88 08:37:00* Test Item Value Reference Range Interpretation Comments Hepatitis B Core Total Antibody (test code = 72493-7) Negative Negative Performed at: [place] [id number] [place], [place] [id number] Director: Edmond Mcneil MD, Phone: [phone] Medical CenterHepatitis B Surface Fdqifdf1224-52-64 08:37:00* Test Item Value Reference Range Interpretation Comments Hepatitis B Surface Antigen (test code = 5196-1) Negative Negat henry [facility] HospitalAld[facility]2017-10-13 05:21:00* Test Item Value Reference Range Interpretation Comments Aldosterone (test code = 1763-2) 1.2 0.0-30.0 This test was developed and its performance characteristicsdetermined by [employer] . It has not been cleared orapproved by the Food and Drug Administration.Perform ed at: [address] [id number] Dir zack: Tone Sheets MD, Phone: [phone] Medical CenterAldosterone2017-10-13 05:21:00* Test Item Value Reference Range Interpretation Comments Aldosterone (test code = 1763-2) 1.2 0.0-30.0 This test was developed and its performance characteristicsdetermined by [employer] . It has not been cleared orapproved by the Food and Drug Administration.Perform ed at: [address] [id number] Dir zack: Tone Sheets MD, Phone: [phone] Medical CenterAldosterone2017-10-13 05:21:00* Test Item Value Reference Range Interpretation Comments Aldosterone (test code = 1763-2) 1.2 0.0-30.0 This test was developed and its performance characteristicsdetermined by [employer] . It has not been cleared orapproved by the Food and Drug Administration.Perform ed at: [address] [id number] Dir zack: Tone Sheets MD, Phone: [phone] Medical CenterPlasma Yyarhgerupva3840-63-88 07:51:00* Test Item Value Reference Range Interpretation Comments Plasma Metanephrine (test code = 36900-4) 14 0-62 Concentrations of Normetanephrine between 146 and 487pg/mL, and Metanephrine bet ween 63 and 255 pg/mL areconsidered indeterminate. Follow-up biochemical testing isrecommended when patient levels fall within thisindeterminate range. These te sts include repeat testing ofplasma/urinary fractionated metanephrines and plasm acatecholamines.Performed at: [address] [id number] Director: Tone Sheets MD, Phone: [phone] Medical CenterPlasma Hdqewpgmfdvxfda2655-93-41 07:51:00* Test Item Value Reference Range Interpretation Comments Plasma Normetanephrine (test code = 2669-0) 61 0-145 [facility] CenterPlasma Hinfrosgxksx1952-04-57 07:51:00* Test Item Value Reference Range Interpretation Comments Plasma Metanephrine (test code = 34436-0) 14 0-62 Concentrations of Normetanephrine between 146 and 487pg/mL, and Metanephrine bet ween 63 and 255 pg/mL areconsidered indeterminate. Follow-up biochemical testing isrecommended when patient levels fall within thisindeterminate range. These te sts include repeat testing ofplasma/urinary fractionated metanephrines and plasm acatecholamines.Performed at: [address] [id number] Director: Tone Sheets MD, Phone: [phone] Medical CenterPlasma Mxsxvowjksaltxj3138-60-10 07:51:00* Test Item Value Reference Range Interpretation Comments Plasma Normetanephrine (test code = 2669-0) 61 0-145 [facility] CenterPlasma Wxkkyextujqw5363-12-45 07:51:00* Test Item Value Reference Range Interpretation Comments Plasma Metanephrine (test code = 81060-9) 14 0-62 Concentrations of Normetanephrine between 146 and 487pg/mL, and Metanephrine bet ween 63 and 255 pg/mL areconsidered indeterminate. Follow-up biochemical testing isrecommended when patient levels fall within thisindeterminate range. These te sts include repeat testing ofplasma/urinary fractionated metanephrines and plasm acatecholamines.Performed at: [address] [id number] Director: Tone Sheets MD, Phone: [phone] Medical CenterPlasma Ocgnhtuuwjddnkr6895-42-48 07:51:00* Test Item Value Reference Range Interpretation Comments Plasma Normetanephrine (test code = 2669-0) 61 0-145 [facility] CenterFree Tradwniwm1914-84-01 15:06:00* Test Item Value Reference Range Interpretation Comments Free Thyroxine (test code = 3024-7) 0.83 0.8-1.8 [facility] CenterThyroid Stimulating Hormone (TSH) 2016-11-20 15:06:00* Test Item Value Reference Range Interpretation Comments Thyroid Stimulating Hormone (TSH) (test code = 07106-4) 1.354 0.350-4.940 [facility] CenterFree Ccxeyhtxz6924-18-76 15:06:00* Test Item Value Reference Range Interpretation Comments Free Thyroxine (test code = 3024-7) 0.83 0.8-1.8 [facility] CenterThyroid Stimulating Hormone (TSH) 2016-11-20 15:06:00* Test Item Value Reference Range Interpretation Comments Thyroid Stimulating Hormone (TSH) (test code = 89459-2) 1.354 0.350-4.940 [facility] CenterFree Sjxbtsocg8007-11-76 15:06:00* Test Item Value Reference Range Interpretation Comments Free Thyroxine (test code = 3024-7) 0.83 0.8-1.8 [facility] CenterThyroid Stimulating Hormone (TSH) 2016-11-20 15:06:00* Test Item Value Reference Range Interpretation Comments Thyroid Stimulating Hormone (TSH) (test code = 71581-5) 1.354 0.350-4.940 [facility] CenterHemoglobin A1c Xjouqhj0688-96-00 14:38:00 * Test Item Value Reference Range Interpretation Comments Hemoglobin A1c Percent (test code = Hemoglobin A1c Percent) 6.2 4.0-7.0 [facility] CenterHemoglobin A1c Riodxls7508-48-39 14:38:00 * Test Item Value Reference Range Interpretation Comments Hemoglobin A1c Percent (test code = Hemoglobin A1c Percent) 6.2 4.0-7.0 [facility] CenterHemoglobin A1c Cjzdaco9232-82-35 14:38:00 * Test Item Value Reference Range Interpretation Comments Hemoglobin A1c Percent (test code = Hemoglobin A1c Percent) 6.2 4.0-7.0 [facility] CenterPhosphorus Pkdjo3560-97-28 06:40:00* Test Item Value Reference Range Interpretation Comments Phosphorus Level (test code = ZKR9574) 4.0 2.3-4.7 [facility] CenterMagnesium Gwslm0603-59-73 06:40:00* Test Item Value Reference Range Interpretation Comments Magnesium Level (test code = 96265-3) 1.8 1.3-2.1 [facility] CenterHepatitis Be Zcbxlhuo0670-69-54 21:11:00 * Test Item Value Reference Range Interpretation Comments Hepatitis Be Antibody (test code = 38323-7) Negative Negative Performed at: [address] [id number] [employer] Developer: Tone Sheets MD, Phone: [phone] Medical CenterHekaiser [facility] Be Yfqidqay6591-25-62 21:11:00* Test Item Value Reference Range Interpretation Comments Hepatitis Be Antibody (test code = 98443-1) Negative Negative Performed at: [address] [id number] [employer] Developer: Tone Sheets MD, Phone: [phone] Medical CenterHekaiser [facility] Be Lsokuapi9825-04-20 21:11:00* Test Item Value Reference Range Interpretation Comments Hepatitis Be Antibody (test code = 92233-4) Negative Negative Performed at: [address] [id number] [employer] Developer: Tone Sheets MD, Phone: [phone] Medical CenterUrine Collection Vmxd3456-60-92 18:08:00* Test Item Value Reference Range Interpretation Comments Urine Collection Time (test code = 12803-2) 24 [facility] CenterUrine Total Epjwgj9450-84-90 18:08:00* Test Item Value Reference Range Interpretation Comments Urine Total Volume (test code = 49439-3) 2150 800-2000 H [facility] CenterUrine Creatinine 24 Scdm9723-30-14 18:08:00* Test Item Value Reference Range Interpretation Comments Urine Creatinine 24 Hour (test code = 2162-6) 765 463-0256 [facility] CenterCreatinine Gyakafvoj8657-64-87 18:08:00* Test Item Value Reference Range Interpretation Comments Creatinine Clearance (test code = 81424-1) 11 88-128 L [facility] CenterUrine Collection Ggua4110-16-53 18:08:00 * Test Item Value Reference Range Interpretation Comments Urine Collection Time (test code = 10862-8) 24 [facility] CenterUrine Total Fdetzb1970-86-18 18:08:00* Test Item Value Reference Range Interpretation Comments Urine Total Volume (test code = 84935-4) 2150 800-2000 H [facility] CenterUrine Creatinine 24 Xadj5987-13-73 18:08:00* Test Item Value Reference Range Interpretation Comments Urine Creatinine 24 Hour (test code = 2162-6) 483 494-8136 [facility] CenterCreatinine Tjcwdbmbb0862-82-80 18:08:00* Test Item Value Reference Range Interpretation Comments Creatinine Clearance (test code = 03748-4) 11 88-128 L [facility] CenterUrine Collection Dspb5328-39-12 18:08:00 * Test Item Value Reference Range Interpretation Comments Urine Collection Time (test code = 72514-6) 24 [facility] CenterUrine Total Mxvzbr7275-02-14 18:08:00* Test Item Value Reference Range Interpretation Comments Urine Total Volume (test code = 79696-4) 2150 800-2000 H [facility] CenterUrine Creatinine 24 Jfmi5312-58-61 18:08:00* Test Item Value Reference Range Interpretation Comments Urine Creatinine 24 Hour (test code = 2162-6) 204 719-9259 [facility] CenterCreatinine Dfxipaxke2369-24-67 18:08:00* Test Item Value Reference Range Interpretation Comments Creatinine Clearance (test code = 51216-0) 11 88-128 L [facility] CenterUrine Jzsbrxvyzg5298-04-62 18:05:00* Test Item Value Reference Range Interpretation Comments Urine Creatinine (test code = 2161-8) 29.57 47-110 L [facility] CenterUrine Ltkeqpxxmi5965-48-51 18:05:00* Test Item Value Reference Range Interpretation Comments Urine Creatinine (test code = 2161-8) 29.57 47-110 L [facility] CenterUrine Clkpfszone4451-03-65 18:05:00* Test Item Value Reference Range Interpretation Comments Urine Creatinine (test code = 2161-8) 29.57 47-110 L [facility] CenterHepatihorizon medical center Be Tkezrqv2849-45-26 05:38:00* Test Item Value Reference Range Interpretation Comments Hepatitis Be Antigen (test code = 64086-2) Negative Negative [facility] Be Tzlbivv7201-45-58 05:38:00* Test Item Value Reference Range Interpretation Comments Hepatitis Be Antigen (test code = 05972-8) Negative Negative [facility] Be Aylxwxz5487-33-08 05:38:00* Test Item Value Reference Range Interpretation Comments Hepatitis Be Antigen (test code = 52690-7) Negative Negative [facility] CenterCortisol AM Xacwrs4657-78-93 21:52:00* Test Item Value Reference Range Interpretation Comments Cortisol AM Sample (test code = 9813-7) 6.7 6.2-19.4 No "Time Drawn" on tube.Performed at: - [facility] [id number] Director: Edmond Mcneil MD, Phone: [phone] Medical CenterCortisol AM Vlcthr0876-16-95 21:52:00* Test Item Value Reference Range Interpretation Comments Cortisol AM Sample (test code = 9813-7) 6.7 6.2-19.4 No "Time Drawn" on tube.Performed at: - [facility] [id number] Director: Edmond Mcneil MD, Phone: [phone] Medical CenterCortisol AM Nczgoi3098-09-27 21:52:00* Test Item Value Reference Range Interpretation Comments Cortisol AM Sample (test code = 9813-7) 6.7 6.2-19.4 No "Time Drawn" on tube.Performed at: - [facility] [address] [id number] Director: Edmond Mcneil MD, Phone: [phone] Medical CenterTriglycerides Rwhhn6151-18-95 06:59:00* Test Item Value Reference Range Interpretation Comments Triglycerides Level (test code = 2571-8) 157 0-149 H [facility] CenterCholesterol Drrgx2703-08-46 06:59:00* Test Item Value Reference Range Interpretation Comments Cholesterol Level (test code = 2093-3) 234 0-199 H Less than 200 mg/dL Low Qnkv677 - 239 mg/dL Borderline Kaoz184 m g/dl and greater High Risk [facility] CenterLDL Cokfirvtqga4677-76-08 06:59:00* Test Item Value Reference Range Interpretation Comments LDL Cholesterol (test code = 98697-9) 149 60-130 H [facility] CenterHDL Kukalcykeih7961-80-87 06:59:00* Test Item Value Reference Range Interpretation Comments HDL Cholesterol (test code = 2085-9) 54 40-60 [facility] CenterCholesterol/HDL Kszvg0831-20-22 06:59:00 * Test Item Value Reference Range Interpretation Comments Cholesterol/HDL Ratio (test code = 9830-1) 4.3 3.0-3.6 H [facility] CenterTriglycerides Qkksw0718-52-63 06:59:00* Test Item Value Reference Range Interpretation Comments Triglycerides Level (test code = 2571-8) 157 0-149 H [facility] CenterCholesterol Zmepq5397-30-48 06:59:00* Test Item Value Reference Range Interpretation Comments Cholesterol Level (test code = 2093-3) 234 0-199 H Less than 200 mg/dL Low Wved289 - 239 mg/dL Borderline Xiqn123 m g/dl and greater High Risk [facility]LDL Dqrmudxtvyi5145-49-24 06:59:00* Test Item Value Reference Range Interpretation Comments LDL Cholesterol (test code = 03023-7) 149 60-130 H [facility]HDL Fxssfxfrafr3550-77-01 06:59:00* Test Item Value Reference Range Interpretation Comments HDL Cholesterol (test code = 2085-9) 54 40-60 [facility]Cholesterol/HDL Fwigi1203-83-01 06:59:00 * Test Item Value Reference Range Interpretation Comments Cholesterol/HDL Ratio (test code = 9830-1) 4.3 3.0-3.6 [facility] Bnttw5724-43-33 19:00:00* Test Item Value Reference Range Interpretation Comments Stool Occult Blood (test code = 2335-8) POSITIVE NEGATIVE H [facility] Occult Ofzwt4710-61-63 19:00:00* Test Item Value Reference Range Interpretation Comments Stool Occult Blood (test code = 2335-8) POSITIVE NEGATIVE [facility] HL0901-88-29 23:24:00* Test Item Value Reference Range Interpretation Comments Creatine Kinase MB (test code = 66640-6) 6.10 0.00-5.00 H [facility]Creatine Viivey0796-18-52 23:00:00* Test Item Value Reference Range Interpretation Comments Creatine Kinase (test code = 2157-6) 102 29-168 [facility] CenterTroponin I3496-23-92 22:56:00* Test Item Value Reference Range Interpretation Comments Troponin I (test code = GBW4373) 0.468 0-0.300 H [facility] CenterUrine Bhjitnlsrqk3397-19-39 22:51:00* Test Item Value Reference Range Interpretation Comments Urine Eosinophils (test code = 94032-9) NONE SEEN NONE SEEN [facility] Dtibsvpzhbg8716-00-14 22:51:00* Test Item Value Reference Range Interpretation Comments Urine Eosinophils (test code = 32840-5) NONE SEEN NONE SEEN [facility] Lhkpsfvqizz3249-36-60 22:51:00* Test Item Value Reference Range Interpretation Comments Urine Eosinophils (test code = 17956-7) NONE SEEN NONE SEEN [facility] Random Total Ovxwtij9453-20-24 19:54:00* Test Item Value Reference Range Interpretation Comments Urine Random Total Protein (test code = 2888-6) 346.4 1-14 H [facility] Random Total Qqwfykv1214-65-63 19:54:00* Test Item Value Reference Range Interpretation Comments Urine Random Total Protein (test code = 2888-6) 346.4 1-14 H [facility] Total Borljmc9679-47-48 19:54:00* Test Item Value Reference Range Interpretation Comments Urine Random Total Protein (test code = 2888-6) 346.4 1-14 H [facility] CenterB-Tlmssdezqeffqcp1189-70-69 19:37:00* Test Item Value Reference Range Interpretation Comments B-Hydroxybutyrate (test code = 59093-5) 1.34 [facility] CenterB-Afhngrzwsxnysoo9888-80-79 19:37:00* Test Item Value Reference Range Interpretation Comments B-Hydroxybutyrate (test code = 10447-2) 1.34 [facility] CenterB-Iudwjfstukcbkjw9169-56-76 19:37:00* Test Item Value Reference Range Interpretation Comments B-Hydroxybutyrate (test code = 10953-7) 1.34 [facility] Random Tykcll1325-69-41 18:58:00* Test Item Value Reference Range Interpretation Comments Urine Random Sodium (test code = 2955-3) 94 [facility] Random Yqtgsq7852-70-08 18:58:00* Test Item Value Reference Range Interpretation Comments Urine Random Sodium (test code = 2955-3) 94 [facility] Random Rqcjpd1047-93-06 18:58:00* Test Item Value Reference Range Interpretation Comments Urine Random Sodium (test code = 2955-3) 94 [facility] Ijioxhcrr3094-79-40 16:39:00* Test Item Value Reference Range Interpretation Comments Direct Bilirubin (test code = 73082-6) 0.1 0.0-5.0 [facility] Vdecnyagy6714-00-94 16:39:00* Test Item Value Reference Range Interpretation Comments Direct Bilirubin (test code = 31751-2) 0.1 0.0-5.0 [facility] Oakubchmw6395-42-32 16:39:00* Test Item Value Reference Range Interpretation Comments Direct Bilirubin (test code = 52105-1) 0.1 0.0-5.0 [facility] CenterFerritin2017-10-07 14:09:00* Test Item Value Reference Range Interpretation Comments Ferritin (test code = 2276-4) 11.31 4.63-204.00 [facility]2017-10-07 14:09:00* Test Item Value Reference Range Interpretation Comments Ferritin (test code = 2276-4) 11.31 4.63-204.00 [facility]2017-10-07 13:47:00* Test Item Value Reference Range Interpretation Comments Iron Level (test code = 2498-4) 14 50-170 L [facility] CenterTotal Iron Binding Uargpwkc0631-97-60 13:47:00* Test Item Value Reference Range Interpretation Comments Total Iron Binding Capacity (test code = 2500-7) 398 261-4 78 [facility] CenterPercent Iron Vgldzagghb8795-12-89 13:47:00* Test Item Value Reference Range Interpretation Comments Percent Iron Saturation (test code = 2502-3) 4 15-50 L [facility] CenterTransferrin2017-10-07 13:47:00* Test Item Value Reference Range Interpretation Comments Transferrin (test code = 3034-6) 284 180-382 [facility]2017-10-07 13:47:00* Test Item Value Reference Range Interpretation Comments Iron Level (test code = 2498-4) 14 50-170 L [facility] CenterTotal Iron Binding Egucrcut3242-44-08 13:47:00* Test Item Value Reference Range Interpretation Comments Total Iron Binding Capacity (test code = 2500-7) 398 261-4 78 [facility] CenterPercent Iron Yvfhzrdwfl7972-10-23 13:47:00* Test Item Value Reference Range Interpretation Comments Percent Iron Saturation (test code = 2502-3) 4 15-50 L [facility] CenterTransferrin2017-10-07 13:47:00* Test Item Value Reference Range Interpretation Comments Transferrin (test code = 3034-6) 284 180-382 [facility] CenterProthrombin Zkso2387-70-77 12:22:00* Test Item Value Reference Range Interpretation Comments Prothrombin Time (test code = 5902-2) 15.4 11.9-14.5 H [facility] CenterProthromb Time International Ratio 2016-11-16 12:22:00* Test Item Value Reference Range Interpretation Comments Prothromb Time International Ratio (test code = 6301-6) 1.16 Oral Anticoagulant Therapy INR Values:1. Low Intensity Therapy 1.5 - 2.02 . Moderate Intensity Therapy 2.0 - 3.03. High Intensity Therapy(1) 2.5 - 3. 54. High Intensity Therapy(2) 3.0 - 4.05. Panic Value INR > 5.0 [facility] CenterActivated Partial Thromboplast Time 2016-11-16 12:22:00* Test Item Value Reference Range Interpretation Comments Activated Partial Thromboplast Time (test code = 01155-8) 30.1 23.8-35.5 [facility] CenterProthrombin Jlkh8532-81-76 12:22:00* Test Item Value Reference Range Interpretation Comments Prothrombin Time (test code = 5902-2) 15.4 11.9-14.5 H [facility] CenterProthromb Time International Ratio 2016-11-16 12:22:00* Test Item Value Reference Range Interpretation Comments Prothromb Time International Ratio (test code = 6301-6) 1.16 Oral Anticoagulant Therapy INR Values:1. Low Intensity Therapy 1.5 - 2.02 . Moderate Intensity Therapy 2.0 - 3.03. High Intensity Therapy(1) 2.5 - 3. 54. High Intensity Therapy(2) 3.0 - 4.05. Panic Value INR > 5.0 [facility] CenterAct[facility] Partial Thromboplast Time 2016-11-16 12:22:00* Test Item Value Reference Range Interpretation Comments Activated Partial Thromboplast Time (test code = 18570-0) 30.1 23.8-35.5 [facility] CenterCHEST [facility]WS [facility] [address] [address] Patient Name: YARITZA JOSEPH MR #: [id number] : 1960 Age/Sex: 57/F Req #: [id number] Adm Physician: Ordered by: HAM CALLAHAN MD Report #: [id number] Location: ER Room/Bed: Procedure: 1919-0985 DX/CHEST 2 VIEWS Exam Da te: 07/10/17 Exam Time: 1949 REPORT STATUS: Sig patrice Two view chest [...] TO: HAM CALLAHAN MD CHEST 2 VIEWS [place] [address] Patient Name: YARITZA JOSEPH MR #: [id number] : 1960 Age/Sex: 56/F Req #: [id number] Adm Physician: BRENDAN TSANG MD Ordered by: BRENDAN TSANG MD Report #: [id number] Location: [facility] Room/Bed: [place] [address] Procedure: 0517- 0029 DX/CHEST 2 VIEWS Exam [...] at 14:08 Dictated By: ALBERTO TENA MD 07 Transcribed By: DHIRAJ on 06/26/171407 COPY TO: BRENDAN TSANG MD CHEST 2 VIEWS [place] [address] Patient Name: YARITZA JOSEPH MR #: [id number] : 1960 Age/Sex: 56/F Req #: [id number] Adm Physician: Ordered by: JALEEL KELLEY MD Report #: [id number] Location: ER Room/Bed: Procedure: [id number] DX/CHEST 2 VIEWS Exa m Date: 06/24/17 Exam Time: 1516 REPORT STATUS: Signed PROCEDURE: Frontal and lateral views of the chest. COMPARISON: [facility], DX, CHEST SINGLE (PORTABLE), 04/25/2017, 10:22. [...] TO: JALEEL KELLEY MD CHEST SINGLE (PORTABLE) [place] [address] Patient Name: YARITZA JOSEPH MR #: [id number] : 1960 Age/Sex: 56/F Req #: [id number] Adm Physician: NATALIE RAY MD Ordered by: SALVA PATEL MD Report #: [id number] Location: MED/SURG Room/Bed: [facility] Procedure: 0316 -0036 DX/CHEST SINGLE (PORTABLE) Exam [...] By: TRISTEN MARKHAM MD 1115 COPY TO: ZAK PATEL MD CHEST 2 VIEWS [facility] [address] [address] Patient Name: YARITZA JOSEPH MR #: [id number] : 1960 Age/Sex: 56/F Req #: [id number] Adm Physician: Ordered by: NATALIE RAY MD Report #: [id number] Location: OR Room/Bed: Procedure: 7320-1369 DX/CHEST 2 VIEWS Exa m Date: 04/22/17 [...] TO: NATALIE RAY MD CT ABDOMEN/PELVIS W [place] [address] Patient Name: YARITZA JOSEPH MR #: [id number] : 1960 Age/Sex: 56/F Req #: [id number] Adm Physician: BRENDAN TSANG MD Ordered by: BRENDAN TSANG MD Report #: [id number] Location: MED/SURG Room/Bed: [facility] Procedure: [id number] CT/CT ABDOMEN/PELVIS W Exam Date: 11/27/16 Exam [...] COPY TO: BRENDAN TSANG MD IR CONSULT [place] [address] Patient Name: YARITZA JOSEPH MR #: [id number] : 1960 Age/Sex: 56/F Req #: [id number] Adm Physician: BRENDAN TSANG MD Ordered by: FRANCIA SAWYER MD Report #: [id number] Location: MED/SURG Room/Bed: [facility] Procedure: [id number] D X/IR CONSULT Exam Date: Exam Time: REPORT ST ATUS: Signed Tunneled Dialysis Catheter Placement November 25, 2016 Pre-P rocedure Diagnosis: End-Stage Renal Disease Post-procedure Diagnosis:End-Stage Renal Disease Mold Filler And Drainer: Vidhya Sheets Fur Comber: None Sedation: None. Heart rate and oxygen saturation were monitored in real-time. Blood pressure was measured in 5 minute increments. 1% lidocaine was used for local anesthesi a. Radiation Dose:84 cGycm2 (Dose Area Product) Fluoroscopy time:0.6 larry carine Estimate blood loss: 10 mL Blood administered: None Complications: No ne Implants/Grafts: 16 Luxembour[place] 19 cm cuffed tunneled dialysis catheter Specim [...] An image was stored in the electronic med ical record. A wire was advanced across [...] fluoroscopic guidance. This report was generated with [employer] ice-recognition technology. Errors in social media specialist can occur. Please interpre t accordingly and contact a radiologist if there are any questions regarding t he report. Signed by: Dr. Maya Sheets M.D. on 11/25/2016 2:19 PM Dictated By: MAYA SHEETS MD 1128 Transcribed By: FRANCISCO J on 11/26/16 1128 COPY TO: FRANCIA GIBBS MD SPECIAL PROCEDURE IN DOPER [place] [address] Patient Name: YARITZA JOSEPH MR #: [id number] : 1960 Age/Sex: 56/F Req #: [id number] Adm Physician: BRENDAN TSANG MD Ordered by: FRANCIA SAWYER MD Report #: [id number] Location: MED/SURG Room/Bed: [facility] Procedure: 7427-8453 I R/SPECIAL PROCEDURE IN DOPER Exam Date: Exam Donald e: REPORT STATUS: Signed Tunneled Dialysis Catheter Placement November 25, 2016 Pre-Procedure Diagnosis: End-Stage Renal Disease Post-procedure Diagnosis:End-Stage Renal Disease Mold Filler And Drainer: Vidhya Sheets Fur Comber: None Sedation: None. Heart rate and oxygen saturation were monitored in real-time. Blood pressure was measured in 5 minute increments. 1% lidocaine was used for local anesthesia. Radiation Dose:84 cGycm2 (Dose Area Product) Fluoro scopy time:0.6 minutes Estimate blood loss: 10 mL Blood administered: None Complications: None Implants/Grafts: 16 Luxembourger 19 cm cuffed tunneled dialysis catheter Specimen: [...] jugular vein. An image was stored in [facility] electronic medical record. A wire was advanced [...] was generated with voice-recognition technology. Errors in social media specialist can occ ur. Please interpret accordingly and contact a radiologist if there are any qu estions regarding the report. Signed by: Dr. Maya Sheets M.D. on 11/25 2:19 PM Dictated By: MAYA SHEETS MD 1128 Transcribed By: FRANCISCO J on 11/26/16 1128 COPY TO: FRANCIA SAWYER MD CHEST SINGLE (PORTABLE) [place] [address] Patient Name: YARITZA JOSEPH MR #: [id number] : 1960 Age/Sex: 56/F Req #: [id number] Adm Physician: BRENDAN TSANG MD Ordered by: SLAVA PATEL MD Report #: [id number] Loca tion: ICU Room/Bed: ICU [facility] Procedure: [id number] DX /CHEST SINGLE (PORTABLE) Exam Date: 11/18/16 [...] TO: SLAVA PATEL MD CHEST SINGLE (PORTABLE) [place] [address] Patient Name: YARITZA JOSEPH MR #: [id number] : 1960 Age/Sex: 56/F Req #: [id number] Adm Physician: BRENDAN TSANG MD Ordered by: SLAVA PATEL MD Report #: [id number] Loca tion: ICU Room/Bed: ICU [facility] Procedure: 6259-2485 DX /CHEST SINGLE (PORTABLE) Exam Date: 11/17/16 [...] TO: SLAVA PATEL MD RENAL RETROPERITONEAL COMP [place] [address] Patient Name: YARITZA JOSEPH MR #: [id number] : 1960 Age/Sex: 56/F Req #: [id number] Adm Physician: BRENDAN TSANG MD Ordered by: FRANCIA SAWYER MD Report #: [id number] Location: ICU Room/Bed: ICU [facility] Procedure: 6810-6088 US /US RENAL RETROPERITONEAL COMP Exam Date: 11/17/16 E xa Time: 1957 REPORT STATUS: Signed EXAM: Renal Ultrasound DATE: 12:00 AM Time stamp on exam: 1918 hours INDICATION: Anemia, hypertens henry COMPARISON: None TECHNIQUE: Transverse and longitudinal sonographic kayley ges of the kidneys and bladder were obtained. FINDINGS: RIGHT KIDNEY : 11.3 x 4.1 x 3.9 cm, normal cortical thickness. Echogenicity: Normal [place] nephrosis: None Calculi: None Cyst/Mass: Simple cyst [...] COPY TO: FRANCIA SAWYER MD IR CONSULT [place] [address] Patient Name: YARITZA JOSEPH MR #: [id number] : 1960 Age/Sex: 56/F Req #: [id number] Adm Physician: BRENDAN TSANG MD Ordered by: FRANCIA SAWYER MD Report #: [id number] Loca tion: ICU Room/Bed: ICU 194 Procedure: [id number] DX /IR CONSULT Exam Date: Exam Time: [...] Serial dilatation was accomplishe d. A 13 Luxembourger 15 cm long temporary triple-lumen Trialysis catheter [...] O: FRANCIA SAWYER MD CHEST SINGLE (PORTABLE) [place] [address] Patient Name: YARITZA JOSEPH MR #: [id number] : 1960 Age/Sex: 56/F Req #: [id number] Adm Physician: BRENDAN TSANG MD Ordered by: ROCKY CABEZAS MD Report #: [id number] Location: [facility] Room/Bed: [place] [address] Procedure: 1007-00 09 DX/CHEST SINGLE (PORTABLE) Exam [...] CABEZAS MD US GUIDANCE FOR VASCULAR ACCES [place] [address] Patient Name: YARITZA JOSEPH MR #: [id number] : 1960 Age/Sex: 56/F Req #: [id number] Adm Physician: BRENDAN TSANG MD Ordered by: FRANCIA SAWYER MD Report #: [id number] Loca tion: ICU Room/Bed: ICU 194 Procedure: [id number] US /US GUIDANCE FOR VASCULAR ACCES Exam Date: 11/16/16 Exam Time: 1430 REPORT STATUS: Signed PROCEDURE: ULTRASOUND GUIDANCE FOR VASCULAR ACCESS COMPARISON: None. INDICATIONS: Patient in vt ed of IV access and temporary hemodialysis. [...] y: MICHAELA MCALLISTER DO 1528 Transcribed By: DHIRAJ on 11/16/161527 COPY TO: FRANCIA SAWYER MD FLUORO GUIDANCE DEE SO PL/REM [place] [address] Patient Name: YARITZA JOSEPH MR #: [id number] : 1960 Age/Sex: 56/F Req #: [id number] Adm Physician: BRENDAN TSANG MD Ordered by: BRENDAN TSANG MD Report #: [id number] Location: ICU Room/Bed: ICU Critical access hospital Procedure: 3189-4012 D X/FLUORO GUIDANCE DEE SO PL/REM Exam [...] sheath. Serial dilatation was accomplished. A 13 Luxembourger 15 cm long temporary triple-l umen Trialysis [...] at 16:09 Dictated By: MICHAELA MCALLISTER DO 1609 Transcribed By: AMIE LORA on 11/16/16 1609 COPY TO: BRENDAN TSANG MD CHEST SINGLE (PORTABLE) [place] [address] Patient Name: YARITZA JOSEPH MR #: [id number] : 1960 Age/Sex: 56/F Req #: [id number] Adm Physician: Ordered by: NAFISA LARES MD Report #: [id number] Location: ER Room/Bed: Procedure: [id number] DX/CHEST SINGLE (ADAM BLE) Exam Date: 11/15/16 Exam Time: 2129 REPOR T STATUS: Signed EXAM: CHEST SINGLE (PORTABLE), AP 1 view DATE: 11/15/2016 9 :14 PM Time stamp on exam: 2127 hours INDICATION: Shortness of breath RAMIRO RISON: [...] Sig patrice By: LOUISE HATFIELD MD on 11/15/168 Transcribed By: FRANCISCO J on 11/15/16 2 148 COPY TO: NAFISA LARES MD
[2019-12-28] MEDS ORDERED: MORPHINE SULFATE 2 MG/ML SYR 1ML IV PRN (15:00)
[2019-12-28] MEDS ORDERED: MORPHINE SULFATE INJ 4 MG/ML INJ 1ML IV PRN (15:00)
[2019-12-28 15:45] LABS: BASOPHILS % 0.6 % (0.0-1.0); EOSINOPHILS # (AUTO) 0.2 (0.0-0.4); HEMATOCRIT 33.1 % (34.2-44.1); HEMOGLOBIN 10.8 g/dL (12.0-16.0); LYMPHOCYTES # (AUTO) 0.8 (1.0-3.2); LYMPHOCYTES % 15.3 % (18.0-39.1); MEAN CORPUSCULAR HEMOGLOBIN 31.1 pg (28-32); MEAN CORPUSCULAR HGB CONC 32.6 g/dL (31-35); MEAN CORPUSCULAR VOLUME 95.4 fL (81-99); MONOCYTES # (AUTO) 0.8 (0.2-0.8); MONOCYTES % 15.3 % (4.4-11.3); NEUTROPHILS # (AUTO) 3.3 (2.1-6.9); NEUTROPHILS % 65.6 % (38.7-80.0); PLATELET COUNT 264 x10e3/uL (140-360); RED BLOOD COUNT 3.47 x10e6/uL (3.6-5.1); RED CELL DISTRIBUTION WIDTH 14.7 % (11.7-14.4)
[2019-12-28 16:45] LABS: ANION GAP 16.3 mmol/L (8-16); CALCIUM 10.1 mg/dL (8.4-10.2); CREATININE, SERUM 4.26 mg/dL (0.57-1.11); POTASSIUM 4.3 mmol/L (3.5-5.1)
[2019-12-28] MEDS ORDERED: NORCO 5-325 TA1 EACH PO (16:54)
[2019-12-28] MEDS ORDERED: PEPCID20 MG PO (16:54)
[2019-12-28] MEDS ORDERED: NITROGLYCERIN0.4 MG SL (16:54)
[2019-12-28] MEDS ORDERED: ZOFRAN4 MG PO (16:54)
[2019-12-28] MEDS ORDERED: DULCOLAX STOOL100 MG PO (16:54)
[2019-12-28] MEDS ORDERED: ULTRAM 50MG50 MG PO (16:54)
[2019-12-28 16:56] VITALS: BP 176/80
[2019-12-28] MEDS ORDERED: TYLENOL325 M2 PO (16:56)
[2019-12-28] MEDS ORDERED: NOVOLOG100 UNIT/1 SC (16:59)
[2019-12-28] MEDS ORDERED: IPRATROPIUM/ALBUTEROL SULFATE 4 GM INH INH PRN (17:00)
[2019-12-28] MEDS ORDERED: TRAMADOL HCL 50 MG TAB PO PRN (17:00)
[2019-12-28] MEDS ORDERED: LIDOCAINE TOP SCH (17:00)
[2019-12-28] MEDS ORDERED: ACETAMINOPHEN 325 MG TAB PO PRN (17:00)
[2019-12-28] MEDS ORDERED: CELECOXIB 200 MG CAP PO PRN (17:00)
[2019-12-28] MEDS ORDERED: DOCUSATE SODIUM 100 MG CAP PO PRN (17:00)
[2019-12-28] MEDS ORDERED: ALBUTEROL/IPRATROPIUM 3 ML NEB INH PRN (17:00)
[2019-12-28] MEDS ORDERED: NON-FORMULARY MEDICATION (Ondansetron Hcl* (Zofran*) 4 MG) PO PRN (17:00)
[2019-12-28] MEDS ORDERED: NITROGLYCERIN 0.4 MG SUBL SL PRN (17:00)
[2019-12-28 17:11] VITALS: BP 176/80
[2019-12-28 17:23] VITALS: BP 176/80
[2019-12-28] MEDS ORDERED: DEXTROSE 50% SYRINGE 50 ML IV PRN (17:45)
[2019-12-28] MEDS: CARVEDILOL 3.125 MG TAB PO SCH ×2 (18:21→21:00)
--- NOTE | 2019-12-28 19:16 | NUR ---
COMPLETED BEDSIDE SHIFT REPORT AND ROUNDING WITH ON COMING NIGHT NURSE. PATIENT INSTABLE CONDITION, NO S/S OF DISTRESS NOTED. NO PAIN VOICED. RESPIRATIONS EVEN AND NONLABORED. PATIENT ABLE TO VOICE NEEDS. IV SITES ASYMPTOMATIC AND PATENT, TRANSPARENT DRESSING C/D/I. BRUISING NOTED TO THE LEFT HIP. BED ALARM APPLIED. BED IN LOWEST POSITION AND LOCKED, SIDE RAILS X 2, NONSKID SOCKS APPLIED. CALL LIGHT WITHIN REACH.
[2019-12-28 20:00] VITALS: BP 181/70
[2019-12-28] MEDS: HYDROCODONE/APAP 5MG-325MG TAB PO PRN (20:33)
[2019-12-28] MEDS: INSULIN LISPRO 100 UNIT/1 ML 3ML VIAL SQ SCH (20:36)
--- NOTE | 2019-12-28 20:41 | NUR ---
History&Physical Chief Complaint - Viki Keys History of Present Illness Ms Keys is a 59 yo F with PMH of HTN, T2DM, CVA with residual left sided weakness, ESRD on MWF dialysis, HTN, History of cigarette smoking with COPD not on home O2, history of colon cancer s/p resection 2017, and depression who presented after fall at [facility], admitted for left hip fracture. Patient barrera d left hip fracture earlier this year s/p fixation (around April 2019). She uses a walker at baseline. She was at [facility] where she is receiving PT rehab and was putting clothes in her closet when she had lost her balance and fell back onto her buttock and her head whipped back and hit the floor. She was taken by ambulance to [facility] ED. In ED, VSS, labs largely unremarkeable. Had CT head without any acute intracranial findings or fractures. Had Left hip Xray with increased lucency within the subcapital left proximal femur concerning for acute and mildly displaced fracture. Admitted for possible surgery. Home Medications - see medication reconciliation Review of Systems General: No fever, chills, or fatigue HEENT: Denies visual changes, hearing loss, congestion, rhinorrhea, or bleeding Respiratory: No SOB, cough, or hemoptysis Cardiovascular: No chest pain, palpitations, RAMIREZ, orthopnea, PND, leg edema, or claudication Gastrointestinal: No nausea, vomiting, diarrhea, constipation, or abdominal pain G/U: Denies dysuria, hematuria, incontinence, or discharge Musculoskeletal: No myalgias or arthralgias Neurological: No syncope, seizures, headaches, changes in sensation, or weakness Hematology: No bruising, bleeding, or lymphadenopathy Endocrine: No heat or cold intolerance, hair loss, or weight changes Skin: No rashes, sores, itching, bruising Psychiatric: Denies depression or elevated mood, or anxiety Past Medical History HTN, T2DM, CVA with residual left sided weakness, ESRD on MWF dialysis, HTN, History of cigarette smoking with COPD not on home O2, history of colon cancer s/p resection 2018, and depression Past Surgical History Left hip fracture s/p ORIF April 2019 Colon resection 2018 Family History Mother with T2DM Social History Does not drink or use drugs Was an active smoker for many years, 2PPD, but quit in February 2019 Allergies NKDA Physical Exam Vitals: Temp: 97.8P: 74BP: 176/80RR: 22SpO2: 99% General Appearance: The patient is alert, oriented and in no acute distress. Appears euvolemic. Skin: Warm and hydrated without any rash. HEENT: Head is normocephalic, atraumatic. Nontender sinuses. Pupils are equal and reactive. The nares are patent. Oropharynx is moist and clear without lesions. Neck: Supple without lymphadenopathy. No JVD. 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 Normal S1 and S2 without S3/S4. No murmurs, rubs or gallops. Peripheral pulses symmetric +2. Respiratory / Chest: No crackles or wheezes are heard. Symmetric breath sounds. Preserved chest expansion. Abdomen: Soft, nontender, nondistended with good bowel sounds heard. No clinical organomegaly. Renal: There is no costovertebral angle tenderness. Extremities: Without cyanosis, clubbing or edema. Preserved ROM. No pain in left hip. Left upper extremity fistula with palpable thrill and murmur on auscultation. Neurological: Gross nonfocal. Patient oriented x 3. Cranial nerves II - XII Grossly intact. DTRs +2. MS: 5/5 globally. Assessment/Plan #Concern for mildy displaced left proximal femur fracture #History of left hip fracture s/p ORIF 04/2019 - Dr Arevalo consulted, may perform surgical repair this admission - PT consulted #HTN - restart home medications - clonidine PRN #T2DM - restart home insulin - sliding scale started #ESRD on MWF HD - will consult Dr Saenz for inpatient HD - Left arm fistula access I have spent 70 minutes zfjv-ld-iopp time with patient, reviewing clinical data, and formulating plan of treatment. Benedicto Hernandez MD Internal Medicine
[2019-12-28] MEDS: ATORVASTATIN 40 MG TAB PO SCH (20:42)
[2019-12-28] MEDS: SEVELAMER CARBONATE 800 MG TAB PO SCH (20:42)
[2019-12-29] VITALS (11 sets, daily range): BP systolic 135–181; BP diastolic 73–92
[2019-12-29] MEDS: HYDROCODONE/APAP 5MG-325MG TAB PO PRN ×2 (03:13→21:00)
[2019-12-29 05:29] LABS: BASOPHILS % 0.7 % (0.0-1.0); EOSINOPHILS # (AUTO) 0.2 (0.0-0.4); EOSINOPHILS % 3.2 % (0.0-6.0); HEMATOCRIT 33.6 % (34.2-44.1); HEMOGLOBIN 10.7 g/dL (12.0-16.0); LYMPHOCYTES # (AUTO) 0.7 (1.0-3.2); MEAN CORPUSCULAR HEMOGLOBIN 30.4 pg (28-32); MEAN CORPUSCULAR HGB CONC 31.8 g/dL (31-35); MEAN CORPUSCULAR VOLUME 95.5 fL (81-99); MONOCYTES # (AUTO) 0.7 (0.2-0.8); MONOCYTES % 12.8 % (4.4-11.3); NEUTROPHILS # (AUTO) 3.8 (2.1-6.9); NEUTROPHILS % 70.1 % (38.7-80.0); PLATELET COUNT 254 x10e3/uL (140-360); RED BLOOD COUNT 3.52 x10e6/uL (3.6-5.1); RED CELL DISTRIBUTION WIDTH 14.4 % (11.7-14.4)
[2019-12-29 05:31] LABS: CALCIUM IONIZED 1.3 mmol/L (1.09-1.30)
[2019-12-29 05:48] LABS: ANION GAP 14.6 mmol/L (8-16); CALCIUM 9.8 mg/dL (8.4-10.2); CREATININE, SERUM 5.41 mg/dL (0.57-1.11); POTASSIUM 4.6 mmol/L (3.5-5.1)
[2019-12-29] MEDS ORDERED: FUROSEMIDE INJ 10 MG/ML 4 ML VIAL ONE (05:49)
[2019-12-29 06:00] LABS: MAGNESIUM 2.1 MG/DL (1.3-2.1); PHOSPHORUS 5.3 MG/DL (2.3-4.7)
[2019-12-29] MEDS ORDERED: FUROSEMIDE INJ 10 MG/ML 10 ML VIAL IV ONE (06:00)
[2019-12-29] MEDS: NON-FORMULARY MEDICATION ([Trelegy] 1 INH) INH SCH (06:00)
--- NOTE | 2019-12-29 06:15 | NUR ---
WENT TO CHECK ON PT. PT. OXYGEN SATURATION 55% ON 2L NASAL CANNULA.PT. COMPLAINING OF SOB,PT.VITAL SIGNS 97.8-958-26-232/160 . BLOOD GLUCOSE 150. AUSCULTATED LUNGS, HEARD CRACKLES IN UPPER AND LOWER LOBES BILATERALLY. TOLD Samantha FRIAS RN TO CALL A RAPID RESPONSE. RAPID RESPONSE CALLED LASIX 80MG IV GIVEN, STAT C-XRAY,LABS, BIPAP AND TRANSFERRED PT. TO [facility] PER Dale LARES MD ORDER. DR. TRINH Molina AND Dale STARKEY NOTIFIED AND STAT DIALYSIS ORDER RECEIVED. NOTIFIED INSURANCE EXAMINER . INSURANCE EXAMINER SPOKE TO DIALYSIS CENTER.
--- NOTE | 2019-12-29 06:19 | Diagnostic Imaging Report ---
EXAMINATION: CHEST SINGLE (PORTABLE) INDICATION: sob COMPARISON: Radiograph dated 07/19/2019 FINDINGS: Unchanged moderate cardiomegaly. Diffuse increased interstitial densities throughout both lungs. Miranda B lines. Blunting of the costophrenic angles. Patchy perihilar opacities. Patchy and hazy opacities in the lateral mid lungs. No pneumothorax. IMPRESSION: Moderate cardiomegaly with pulmonary edema and small pleural effusions. Patchy peripheral opacities in the midlungs could indicate superimposed infection/viral pneumonia in the appropriate clinical setting. Signed by: Ankit Phan MD on 12/29/2019 6:16 AM
[2019-12-29 06:25] LABS: CREATINE KINASE MB 1.1 ng/mL (0-5.0)
[2019-12-29 06:41] LABS: ALBUMIN 3.9 g/dL (3.5-5.0); ANION GAP 22.6 mmol/L (8-16); CALCIUM 10.6 mg/dL (8.4-10.2); CREATININE, SERUM 5.45 mg/dL (0.57-1.11); POTASSIUM 4.6 mmol/L (3.5-5.1)
[2019-12-29] MEDS: FAMOTIDINE 20 MG TAB PO SCH (07:54)
[2019-12-29] MEDS: ESCITALOPRAM OXALATE 10 MG TAB PO SCH (07:54)
[2019-12-29] MEDS: CARVEDILOL 3.125 MG TAB PO SCH ×3 (07:54→20:17)
[2019-12-29] MEDS: SEVELAMER CARBONATE 800 MG TAB PO SCH ×3 (07:54→20:17)
[2019-12-29] MEDS: ASPIRIN 81 MG CHEW TAB PO SCH (07:54)
[2019-12-29] MEDS: INSULIN GLARGINE 100 UNITS/ML VIAL SC SCH (07:57)
[2019-12-29] MEDS: INSULIN LISPRO 100 UNIT/1 ML 3ML VIAL SQ SCH ×4 (08:01→21:00)
--- NOTE | 2019-12-29 08:43 | NUR ---
patient placed on 3L nc. o2 sat 100%. denies any shortness of breath at this time. dialysis to start patient HD soon.
[2019-12-29] MEDS ORDERED: SODIUM CHLORIDE 0.9% 1000ML 2,000 ML ONE (08:45)
[2019-12-29] MEDS ORDERED: SODIUM CHLORIDE 0.9% 1000ML 2,000 ML IV PRN (09:00)
--- NOTE | 2019-12-29 12:00 | NUR ---
patient called RN to room stating she is feeling off. asked if she felt short of breath and if she would want to wear bipap. o2 100% on 3L. denied mask. dialysis nurse at bedside lowered fluid return rate. patient stated that she is starting to feel better. attending notified and orders received.
[2019-12-29] MEDS ORDERED: LORAZEPAM 0.5 MG TAB PO ONE (12:15)
[2019-12-29] MEDS: ONDANSETRON HCL INJ 2MG/ML 2ML 2 MG/ML VIAL IV PRN (12:21)
[2019-12-29] MEDS ORDERED: LABETALOL HCL 5 MG/ML 20ML VIAL IV ONE (14:00)
[2019-12-29] MEDS ORDERED: HYDRALAZINE HCL 25 MG TAB PO PRN (17:00)
[2019-12-29] MEDS: LISINOPRIL 20 MG TAB PO SCH (17:16)
[2019-12-29] MEDS ORDERED: LORAZEPAM 0.5 MG TAB PO PRN (17:30)
[2019-12-29] MEDS ORDERED: FUROSEMIDE INJ 10 MG/ML 4 ML VIAL IV ONE (17:45)
--- NOTE | 2019-12-29 19:00 | Consultation ---
DATE OF CONSULTATION: Renal Consultation Report REASON FOR CONSULTATION: Fluid overload, end-stage renal disease. HISTORY OF PRESENT ILLNESS: Ms. Viki Jeffery is a 59-year-old lady, who is well known to me. She gets dialysis regularly Friday, Friday, and Friday at [facility]. The patient is from [facility]. Apparently, she had a fall and because of that she had some instability and a fall and she was brought here to the hospital. The patient actually is a dialysis patient and rapid response was actually called. She was in fluid overload. Emergent dialysis was done. PAST MEDICAL HISTORY: Includes history of end-stage renal disease on dialysis Friday, Friday, and Friday at [facility], diabetes, hypertension, and depression. PAST SURGICAL HISTORY: She has had a hip replacement and also colon resection, pins in the left hip. REVIEW OF SYSTEMS: As per HPI. PHYSICAL EXAMINATION: VITAL SIGNS: Blood pressure 149/76, however, earlier her systolic blood pressure was around 200 and her pulse was even at like 120 to 130. GENERAL: The patient is a frail lady, who is somewhat pale. HEENT: No increased JVD. CARDIOVASCULAR: Regular rhythm. LUNGS: Decreased breath sounds bilaterally. ABDOMEN: Decreased bowel sounds. EXTREMITIES: No edema, cyanosis, or clubbing. LABORATORY RESULTS: Sodium 136, potassium 4.6, chloride 97, bicarbonate 21, BUN and creatinine 49 and 5.4 respectively, hemoglobin and hematocrit at 10 and 33. IMPRESSION: 1. End-stage renal disease. 2. Accelerated hypertension. 3. Fluid overload. 4. Volume overload. 5. Chronic kidney disease, stage 5. PLAN: The patient underwent dialysis today with total of 3.2 L were removed. The patient tolerated the dialysis well, however, she was very hypertensive. I am going to order some p.r.n. hydralazine 12.5 mg p.o. q.8 hours p.r.n. Her carvedilol has been increased to 12.5 mg b.i.d. I think this is the only medicine that she is on for hypertension. Her blood pressures have been high. I am going to start her on some lisinopril 20 mg once a day and we will give the first dose now. Thank you Dr. Hernandez for allowing me to participate in the care of this patient with you. Ather MD OWEN Saenz/EVER /[id number]
[2019-12-29] MEDS: ATORVASTATIN 40 MG TAB PO SCH (20:17)
--- NOTE | 2019-12-29 21:31 | NUR ---
Progress Note Subjective 12/28: overnight became short of breath, desats to 86%, rapid response called, placed on bipap and sent to IMCU. CXR with bilat pulm edema, likely from IV flui ds started in ED on admission. Given 1x dose Lasix 80mg IV. Off bipap after 30 min and placed on 3L NC with improvement. This AM, had HD and tolerated well. However some episodes of anxiety as she felt SOB but had no desats, controlled with ativan. Started lisinopril and increased coreg to 6.25 to control HTN. History of Present Illness Ms Keys is a 59 yo F with PMH of HTN, T2DM, CVA with residual left sided weakness, ESRD on MWF dialysis, HTN, History of cigarette smoking with COPD not on home O2, history of colon cancer s/p resection 2017, and depression who presented after fall at [facility], admitted for left hip fracture. Patient barrera d left hip fracture earlier this year s/p fixation (around April 2019). She uses a walker at baseline. She was at [facility] where she is receiving PT rehab and was putting clothes in her closet when she had lost her balance and fell back onto her buttock and her head whipped back and hit the floor. She was taken by ambulance to [facility] ED. In ED, VSS, labs largely unremarkeable. Had CT head without any acute intracranial findings or fractures. Had Left hip Xray with increased lucency within the subcapital left proximal femur concerning for acute and mildly displaced fracture. Admitted for possible surgery. Physical Exam Vitals: Temp: 98.1P: 84BP: 166/78RR: 17SpO2: 100% on 3L NC General Appearance: The patient is alert, oriented and in no acute distress. Appears euvolemic. Skin: Warm and hydrated without any rash. HEENT: Head is normocephalic, atraumatic. Nontender sinuses. Pupils are equal and reactive. The nares are patent. Oropharynx is moist and clear without lesions. Neck: Supple without lymphadenopathy. No JVD. 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 Normal S1 and S2 without S3/S4. No murmurs, rubs or gallops. Peripheral pulses symmetric +2. Respiratory / Chest: No crackles or wheezes are heard. Symmetric breath sounds. Preserved chest expansion. Abdomen: Soft, nontender, nondistended with good bowel sounds heard. No clinical organomegaly. Renal: There is no costovertebral angle tenderness. Extremities: Without cyanosis, clubbing or edema. Preserved ROM. No pain in left hip. Left upper extremity fistula with palpable thrill and murmur on auscultation. Neurological: Gross nonfocal. Patient oriented x 3. Cranial nerves II - XII Grossly intact. DTRs +2. MS: 5/5 globally. Assessment/Plan #Concern for mildy displaced left proximal femur fracture #History of left hip fracture s/p ORIF 04/2019 - Dr Arevalo consulted, may perform surgical repair this admission - PT consulted #Acute hypoxemic respiratory failure #Bilateral pulmonary edema - from IVF on admission - s/p IV lasix 80mg once, given another dose 40mg IV - continue HD - CXR in AM - TTE to assess cardiac function #HTN - increase coreg to 6.25mg - start Lisinopril 20mg daily per renal - PRN hydralazine #T2DM - restart home insulin - sliding scale started #ESRD on MWF HD - Dr Saenz for inpatient HD - Left arm fistula access Benedicto Hernandez MD Internal Medicine
[2019-12-30] VITALS (7 sets, daily range): BP systolic 130–190; BP diastolic 68–93
[2019-12-30] MEDS: HYDROCODONE/APAP 5MG-325MG TAB PO PRN (03:15)
[2019-12-30 04:42] LABS: CALCIUM IONIZED 1.3 mmol/L (1.09-1.30)
[2019-12-30 04:46] LABS: BASOPHILS % 0.5 % (0.0-1.0); EOSINOPHILS # (AUTO) 0.1 (0.0-0.4); EOSINOPHILS % 1.7 % (0.0-6.0); HEMATOCRIT 33.8 % (34.2-44.1); HEMOGLOBIN 11.1 g/dL (12.0-16.0); LYMPHOCYTES # (AUTO) 0.7 (1.0-3.2); LYMPHOCYTES % 8.6 % (18.0-39.1); MEAN CORPUSCULAR HEMOGLOBIN 31.7 pg (28-32); MEAN CORPUSCULAR HGB CONC 32.8 g/dL (31-35); MEAN CORPUSCULAR VOLUME 96.6 fL (81-99); MONOCYTES % 11.8 % (4.4-11.3); NEUTROPHILS # (AUTO) 6.4 (2.1-6.9); NEUTROPHILS % 77.2 % (38.7-80.0); PLATELET COUNT 263 x10e3/uL (140-360); RED CELL DISTRIBUTION WIDTH 14.3 % (11.7-14.4)
[2019-12-30 05:13] LABS: ALBUMIN 3.5 g/dL (3.5-5.0); ALBUMIN/GLOBULIN RATIO 1.1 (0.8-2.0); ANION GAP 15.2 mmol/L (8-16); CREATININE, SERUM 4.19 mg/dL (0.57-1.11); MAGNESIUM 2.1 MG/DL (1.3-2.1); PHOSPHORUS 4.3 MG/DL (2.3-4.7); POTASSIUM 4.2 mmol/L (3.5-5.1)
[2019-12-30] MEDS: NON-FORMULARY MEDICATION ([Trelegy] 1 INH) INH SCH (06:00)
[2019-12-30] MEDS: ONDANSETRON HCL INJ 2MG/ML 2ML 2 MG/ML VIAL IV PRN (06:48)
[2019-12-30] MEDS: INSULIN LISPRO 100 UNIT/1 ML 3ML VIAL SQ SCH ×3 (08:00→16:50)
[2019-12-30] MEDS: CARVEDILOL 3.125 MG TAB PO SCH (08:19)
[2019-12-30] MEDS: FAMOTIDINE 20 MG TAB PO SCH (08:19)
[2019-12-30] MEDS: ESCITALOPRAM OXALATE 10 MG TAB PO SCH (08:19)
[2019-12-30] MEDS: SEVELAMER CARBONATE 800 MG TAB PO SCH ×2 (08:19→16:49)
[2019-12-30] MEDS: LISINOPRIL 20 MG TAB PO SCH (08:19)
[2019-12-30] MEDS: ASPIRIN 81 MG CHEW TAB PO SCH (08:19)
--- NOTE | 2019-12-30 08:36 | Diagnostic Imaging Report ---
TECHNIQUE: Frontal view of the chest. INDICATION: ^chf ^[id number] ^0610 COMPARISON: Prior day. DISCUSSION: Limited evaluation due to portable technique. Lines and hardware: Overlying EKG leads are noted. Heart and mediastinum: Stable cardio megaly. Lungs and pleura: Stable interstitial opacities throughout the left lung. Improved interstitial opacities in the right lung. Decreased pleural effusions and Danilo B lines are noted. Soft tissues and bones: No acute abnormality. IMPRESSION: Interval improvement in interstitial airspace opacities, effusions and Danilo B lines. Signed by: Samuel Davenport MD on 12/30/2019 8:32 AM
[2019-12-30] MEDS: INSULIN GLARGINE 100 UNITS/ML VIAL SC SCH (09:00)
[2019-12-30] MEDS ORDERED: AMLODIPINE BESY10 MG PO (09:26)
[2019-12-30] MEDS ORDERED: CLONIDINE HCL0.2 MG PO (09:26)
[2019-12-30] MEDS ORDERED: AMLODIPINE BESYLATE 10 MG TAB PO SCH (10:00)
[2019-12-30] MEDS ORDERED: FUROSEMIDE INJ 10 MG/ML 4 ML VIAL IV ONE (10:00)
[2019-12-30] MEDS: CLONIDINE HCL 0.2 MG TAB PO SCH ×2 (10:42→16:49)
[2019-12-30] MEDS ORDERED: CLONIDINE HCL 0.2 MG TAB ONE (10:47)
[2019-12-30] MEDS ORDERED: AMLODIPINE BESYLATE 10 MG TAB ONE (10:48)
[2019-12-30] MEDS ORDERED: FUROSEMIDE INJ 10 MG/ML 4 ML VIAL ONE (10:48)
--- NOTE | 2019-12-30 14:11 | NUR ---
Per Dr. Karen Hernandez, possible dc back to [facility] today. CM spoke to pt at bedside and she would like to return to [facility]. Choice letter signed. Copy to pt. IMM letter discussed with pt. She verbalized understanding. Copy to pt. Signed copies of choice letter and IMM placed in chart. Clinicals sent to [facility]. Tara with [facility] was notified and she confirmed they received clinicals.
--- NOTE | 2019-12-30 14:22 | NUR ---
Progress Note Subjective 12/29: improved today, CXR with less pulm edema and back to her baseline 3L NC. This is the same oxygen she is on at the SNF. Also her BP has been elevated however it appears her clonidine is normally scheduled 0.2mg TID and not PRN as I previously understood, so restarting that today to control her BP. She had an episode of vomiting but she states this happens to her on occasion. KUB pending, however this may not delay her return to SNF. Doing well otherwise once her BP is controlled. 12/28: overnight became short of breath, desats to 86%, rapid response called, placed on bipap and sent to IMCU. CXR with bilat pulm edema, likely from IV flui ds started in ED on admission. Given 1x dose Lasix 80mg IV. Off bipap after 30 min and placed on 3L NC with improvement. This AM, had HD and tolerated well. However some episodes of anxiety as she felt SOB but had no desats, controlled with ativan. Started lisinopril and increased coreg to 6.25 to control HTN. History of Present Illness Ms Keys is a 59 yo F with PMH of HTN, T2DM, CVA with residual left sided weakness, ESRD on MWF dialysis, HTN, History of cigarette smoking with COPD not on home O2, history of colon cancer s/p resection 2017, and depression who presented after fall at [facility], admitted for left hip fracture. Patient barrera d left hip fracture earlier this year s/p fixation (around April 2019). She uses a walker at baseline. [facility] and was putting clothes in her closet when she had lost her balance and fell back onto her buttock and her head whipped back and hit the floor. She was taken by ambulance to [facility] ED. In ED, VSS, labs largely unremarkeable. Had CT head without any acute intracranial findings or fractures. Had Left hip Xray with increased lucency within the subcapital left proximal femur concerning for acute and mildly displaced fracture. Admitted for possible surgery. Physical Exam Vitals: Temp: 98.6 P: 92 BP: 190/93RR: 23 SpO2: 100% on 3L NC General Appearance: The patient is alert, oriented and in no acute distress. Appears euvolemic. Skin: Warm and hydrated without any rash. HEENT: Head is normocephalic, atraumatic. Nontender sinuses. Pupils are equal and reactive. The nares are patent. Oropharynx is moist and clear without lesions. Neck: Supple without lymphadenopathy. No JVD. 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 Normal S1 and S2 without S3/S4. No murmurs, rubs or gallops. Peripheral pulses symmetric +2. Respiratory / Chest: No crackles or wheezes are heard. Symmetric breath sounds. Preserved chest expansion. Abdomen: Soft, nontender, nondistended with good bowel sounds heard. No clinical organomegaly. Renal: There is no costovertebral angle tenderness. Extremities: Without cyanosis, clubbing or edema. Preserved ROM. No pain in left hip. Left upper extremity fistula with palpable thrill and murmur on auscultation. Neurological: Gross nonfocal. Patient oriented x 3. Cranial nerves II - XII Grossly intact. DTRs +2. MS: 5/5 globally. Assessment/Plan #Concern for mildy displaced left proximal femur fracture #History of left hip fracture s/p ORIF 04/2019 - Dr Arevalo consulted, decision made to re-evaluate in oupatient setting for possible hip replacement; no plans for surgery at this time - PT consulted #Acute hypoxemic respiratory failure, improved #Bilateral pulmonary edema - from IVF on admission - temporarily required bipap, now back to her baseline 3L NC - IV lasix as needed - continue HD - CXR improved - TTE prelim result is normal #HTN - increase coreg to 6.25mg - start Lisinopril 20mg daily per renal - PRN hydralazine - restart home clonidine 0.2mg TID #T2DM - home insulin - sliding scale started #ESRD on MWF HD - Dr Saenz for inpatient HD - Left arm fistula access Benedicto Hernandez MD Internal Medicine
--- NOTE | 2019-12-30 14:49 | Progress Note ---
DATE: 12/30/2019 Renal Progress Note SUBJECTIVE: Events over the 24 hours have been noted. The patient did have some nausea and some vomiting earlier today. She is undergoing a KUB at this time. PHYSICAL EXAMINATION: VITAL SIGNS: Blood pressure 190/93 and pulse 92. GENERAL: The patient is somewhat ill-appearing. HEENT: No increased JVD. CARDIOVASCULAR: Regular rate and rhythm. LUNGS: Clear to auscultation bilaterally. ABDOMEN: Decreased bowel sounds. EXTREMITIES: No edema, cyanosis, or clubbing. LABORATORY RESULTS: Hemoglobin is 11.1. Sodium 137, potassium 4.2, chloride 97, bicarbonate 29, BUN and creatinine of 28 and 4.2 respectively. IMPRESSION/PLAN: 1. End-stage renal disease. 2. Accelerated hypertension. 3. Fluid overload. 4. Volume overload. 5. Chronic kidney disease, stage 5. PLAN: The patient underwent dialysis yesterday. She tolerated the dialysis well. The patient's blood pressure is still elevated. I started her on lisinopril 20 mg once a day. I think I will increase it to twice a day and I will make sure that her carvedilol is 25 mg b.i.d., which I think it is. If she is still here tomorrow, she is due for dialysis again tomorrow. KUB is being done right now for her nausea and vomiting. Ather MD OWEN Saenz/EVER /[id number]
--- NOTE | 2019-12-30 14:54 | Progress Note ---
DATE: 12/30/2019 ADDENDUM: I have reviewed the patient's blood pressure medications. Actually, she has been re-instated on her clonidine and also her amlodipine. She was not getting these medicines yesterday, but these medicines have been re-instated today. So in that case, I am not going to increase the lisinopril to 20 b.i.d. as I indicated in my previous note. I will keep the lisinopril at 20 mg once a day and since she is now on the clonidine and amlodipine, which she was not on before, we will see how this affects her blood pressure. Ather MD OWEN Saenz/EVER /[id number]
--- NOTE | 2019-12-30 15:54 | Diagnostic Imaging Report ---
Abdomen, one view AP INDICATION: ^NAUSEA/VOMITING ^[id number] ^1310 ^Y Comparison: 12/28/2019. Discussion: No data loops of small bowel are identified. Large amount of retained stool is noted throughout the colon especially the rectum. No suspicious calcifications. Interstitial opacities are noted at the lung bases. Partially visualized postsurgical changes of the left femoral neck and head are noted with questionable acute fracture as noted on recent hip x-ray dated 12/28/2019. No other acute osseous abnormality. IMPRESSION: Large amount of retained stool throughout the rectum and especially the colon is concerning for constipation/possible impaction. No data loops of small bowel are identified. Mild gaseous distention of the stomach is noted. Consider cross-sectional imaging if clinically indicated. Signed by: Samuel Davenport MD on 12/30/2019 3:51 PM
[2019-12-30] MEDS ORDERED: BISACODYL 10 MG SUPP PR ONE (18:00)
--- NOTE | 2020-01-02 23:47 | NUR ---
Discharge Summary Patient: Viki Keys Admission date: 12/28/2019 Discharge date: 12/30/2019 Attending physician: Benedicto Hernandez MD Consultation: Dr Sarah Saenz, nephrology Dr Klever Arevalo, orthopedic surgery Admitting Diagnosis: Mildly displaced left proximal femur fracture, acute hypoxemic respiratory failure, bilateral pulmonary edema, hypertension, type 2 diabetes mellitus, ESRD on MWF HD Discharge Diagnosis: Mildly displaced left proximal femur fracture, acute hypoxemic respiratory failure, bilateral pulmonary edema, hypertension, type 2 diabetes mellitus, ESRD on MWF HD Procedures: None Hospital Course: Ms Keys is a 59 yo F with PMH of HTN, T2DM, CVA with residual left sided weakness, ESRD on MWF dialysis, HTN, History of cigarette smoking with COPD not on home O2, history of colon cancer s/p resection 2017, and depression who presented after fall at [facility], admitted for left hip fracture. Patient barrera d left hip fracture earlier this year s/p fixation (around April 2019). She uses a walker at baseline. She was at [facility] where she is receiving PT rehab and was putting clothes in her closet when she had lost her balance and fell back onto her buttock and her head whipped back and hit the floor. She was taken by ambulance to [facility] ED. In ED, VSS, labs largely unremarkeable. Had CT head without any acute intracranial findings or fractures. Had Left hip Xray with increased lucency within the subcapital left proximal femur concerning for acute and mildly displaced fracture. Evaluated by Dr Arevalo who decided against surgery this admission and will follow up with patient in clinic soon to discuss possible hip replacement. Patient had received IV fluids in ED and the subsequent evening had acute respiratory distress with desaturations, requiring BIPAP for 30 minutes. She was diuresed with IV lasix and had HD the following day with the help of Dr Saenz. She was hypertensive this admission and this resolved when we restarted all home BP meds including clonidine. She is discharged back to her SNF at [facility] for continued rehabilitation. Physical Exam Vitals: Temp: 98.6 P: 92 BP: 140/68RR: 23 SpO2: 100% on 3L NC General Appearance: The patient is alert, oriented and in no acute distress. Appears euvolemic. Skin: Warm and hydrated without any rash. HEENT: Head is normocephalic, atraumatic. Nontender sinuses. Pupils are equal and reactive. The nares are patent. Oropharynx is moist and clear without lesions. Neck: Supple without lymphadenopathy. No JVD. 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 Normal S1 and S2 without S3/S4. No murmurs, rubs or gallops. Peripheral pulses symmetric +2. Respiratory / Chest: No crackles or wheezes are heard. Symmetric breath sounds. Preserved chest expansion. Abdomen: Soft, nontender, nondistended with good bowel sounds heard. No clinical organomegaly. Renal: There is no costovertebral angle tenderness. Extremities: Without cyanosis, clubbing or edema. Preserved ROM. No pain in left hip. Left upper extremity fistula with palpable thrill and murmur on auscultation. Neurological: Gross nonfocal. Patient oriented x 3. Cranial nerves II - XII Grossly intact. DTRs +2. MS: 5/5 globally. Discharge medications: see medication reconciliation Discharge plan: Condition on discharge: good Activity: as tolerated Diet: renal diet Follow-up: discharge to SNF but will need to follow up with Dr Arevalo in clinic for evaluation of hip and follow up with PCP within 1 week Time spent on discharge: 45 minutes
== END 2019-12-30 19:28 | disposition home or self-care (01) | DRG 559 ==
LOC: ER 12:45 → ERHOLD 14:53 → MED/SURG 16:26 → IMCU 12-29 06:00
PROVIDERS: ADMIT Internal Medicine; ATTEND Internal Medicine
PROC: 5A09357 Assistance with Respiratory Ventilation, Less than 24 Consecutive Hours, Continuous Positive Airway Pressure (ICD-10-PCS; principal; 2019-12-29)
DX: T84.125A Displacement of internal fixation device of left femur, initial encounter (principal); N18.6 End stage renal disease; J96.01 Acute respiratory failure with hypoxia; I12.0 Hypertensive chronic kidney disease with stage 5 chronic kidney disease or end stage renal disease; I69.354 Hemiplegia and hemiparesis following cerebral infarction affecting left non-dominant side; W01.10XA Fall on same level from slipping, tripping and stumbling with subsequent striking against unspecified object, initial encounter; Y93.89 Activity, other specified; Y92.128 Other place in nursing home as the place of occurrence of the external cause; E11.22 Type 2 diabetes mellitus with diabetic chronic kidney disease; Z99.2 Dependence on renal dialysis; Z85.038 Personal history of other malignant neoplasm of large intestine; Z87.891 Personal history of nicotine dependence; E87.70 Fluid overload, unspecified; J44.9 Chronic obstructive pulmonary disease, unspecified; Z79.4 Long term (current) use of insulin
CPT/HCPCS: 36415; 70450; 71045; 74018; 80048; 80053; 82550; 82553; 83735; 83880; 84100; 84484; 85025; 86705; 86706; 87340; 90962; 93005; 93306; 94660; 99284; J1815; J1940; J2270; J2405; J7030; U0002

== ENCOUNTER 2020-01-28 20:31 | Emergency (ER) | payer MEDICARE ==
[~2020-01-28] VITALS: Ht 165.1 cm; Wt 63.5 kg
[~2020-01-28 20:31] MED LIST changes: +AMLODIPINE BESY10 MG PO; +DULCOLAX STOOL100 MG PO; +NITROGLYCERIN0.4 MG SL; +NORCO 5-325 TA1 EACH PO; +NOVOLOG100 UNIT/1 SC; +PEPCID20 MG PO; +TYLENOL325 M2 PO; +ULTRAM 50MG50 MG PO
[2020-01-28 21:44] LABS: BASOPHILS % 0.2 % (0.0-1.0); HEMATOCRIT 32.1 % (34.2-44.1); HEMOGLOBIN 10.2 g/dL (12.0-16.0); LYMPHOCYTES # (AUTO) 0.7 (1.0-3.2); LYMPHOCYTES % 6.5 % (18.0-39.1); MEAN CORPUSCULAR HEMOGLOBIN 31.5 pg (28-32); MEAN CORPUSCULAR HGB CONC 31.8 g/dL (31-35); MEAN CORPUSCULAR VOLUME 99.1 fL (81-99); MONOCYTES % 9.5 % (4.4-11.3); NEUTROPHILS # (AUTO) 8.4 (2.1-6.9); NEUTROPHILS % 83.1 % (38.7-80.0); PLATELET COUNT 280 x10e3/uL (140-360); RED BLOOD COUNT 3.24 x10e6/uL (3.6-5.1); RED CELL DISTRIBUTION WIDTH 17.2 % (11.7-14.4)
[2020-01-28 22:02] LABS: ALBUMIN 3.4 g/dL (3.5-5.0); ANION GAP 20.4 mmol/L (8-16); CALCIUM 9.6 mg/dL (8.4-10.2); CREATININE, SERUM 2.19 mg/dL (0.57-1.11); POTASSIUM 4.4 mmol/L (3.5-5.1)
[2020-01-28 22:09] LABS: CREATINE KINASE MB 0.5 ng/mL (0-5.0)
[2020-01-28 22:19] LABS: ALBUMIN/GLOBULIN RATIO 0.9 (0.8-2.0)
[2020-01-28] MEDS ORDERED: AZITHROMYCIN 500MG/NS 250 ML 250 ML IV ONE (23:45)
[2020-01-28] MEDS ORDERED: CEFTRIAXONE SOD 1 GM/NS 50 ML 50 ML IV ONE (23:45)
[2020-01-28] MEDS ORDERED: DEXAMETHASONE SOD PHOS 10 MG/1 ML VIAL IV ONE (23:45)
== END 2020-01-29 03:37 | disposition other institution (70) ==
LOC: ER 20:41
DX: U07.1 COVID-19 (principal); J18.9 Pneumonia, unspecified organism; J81.1 Chronic pulmonary edema; I12.0 Hypertensive chronic kidney disease with stage 5 chronic kidney disease or end stage renal disease; E11.22 Type 2 diabetes mellitus with diabetic chronic kidney disease; N18.6 End stage renal disease; Z99.2 Dependence on renal dialysis; J44.9 Chronic obstructive pulmonary disease, unspecified; F32.9 Major depressive disorder, single episode, unspecified; Z87.891 Personal history of nicotine dependence
CPT/HCPCS: 36415; 71045; 80053; 82550; 82553; 83880; 84484; 85025; 87040; 93005; 99284; J0456; J0696; J1100; U0002

== ENCOUNTER 2020-04-23 00:16 | Inpatient (IN) | payer MEDICARE, OTHER ==
[~2020-04-23] VITALS: Ht 165.1 cm; Wt 59.0 kg
[2020-04-23] VITALS (7 sets, daily range): BP systolic 128–146; BP diastolic 61–67
[2020-04-23 00:47] LABS: BASOPHILS % 0.3 % (0.0-1.0); EOSINOPHILS # (AUTO) 0.1 (0.0-0.4); EOSINOPHILS % 1.1 % (0.0-6.0); HEMATOCRIT 30.6 % (34.2-44.1); HEMOGLOBIN 9.5 g/dL (12.0-16.0); LYMPHOCYTES % 10.5 % (18.0-39.1); MEAN CORPUSCULAR HEMOGLOBIN 30.8 pg (28-32); MEAN CORPUSCULAR VOLUME 99.4 fL (81-99); MONOCYTES % 10.5 % (4.4-11.3); NEUTROPHILS # (AUTO) 7.2 (2.1-6.9); NEUTROPHILS % 77.2 % (38.7-80.0); PLATELET COUNT 345 x10e3/uL (140-360); RED BLOOD COUNT 3.08 x10e6/uL (3.6-5.1); RED CELL DISTRIBUTION WIDTH 15.9 % (11.7-14.4)
[2020-04-23 01:04] LABS: ALBUMIN 3.1 g/dL (3.5-5.0); ALBUMIN/GLOBULIN RATIO 0.8 (0.8-2.0); ANION GAP 18.5 mmol/L (8-16); CALCIUM 9.7 mg/dL (8.4-10.2); CREATININE, SERUM 4.12 mg/dL (0.57-1.11); POTASSIUM 4.5 mmol/L (3.5-5.1)
[2020-04-23] MEDS ORDERED: CEFEPIME 1GM/NS 0.9% 50 ML 50 ML IV STA (01:43)
[2020-04-23] MEDS ORDERED: SODIUM CHLORIDE 0.9% 50ML 50 ML ONE (03:08)
[2020-04-23] MEDS ORDERED: CEFEPIME HCL 1 GM VIAL ONE (03:08)
[2020-04-23] MEDS ORDERED: VANCOMYCIN 1GM/NS 250 ML 250 ML IV ONE (08:00)
[2020-04-23] MEDS ORDERED: ALBUTEROL/IPRATROPIUM 3 ML NEB INH PRN (08:15)
[2020-04-23] MEDS ORDERED: DOCUSATE SODIUM 100 MG CAP PO PRN (08:15)
[2020-04-23] MEDS: CARVEDILOL 3.125 MG TAB PO SCH ×2 (08:15→21:00)
[2020-04-23] MEDS ORDERED: NITROGLYCERIN 0.4 MG SUBL SL SCH (08:15)
[2020-04-23] MEDS ORDERED: CELECOXIB 100 MG CAP PO PRN (08:15)
[2020-04-23] MEDS ORDERED: HYDROCODONE/APAP 5MG-325MG TAB PO PRN (08:15)
[2020-04-23] MEDS ORDERED: NON-FORMULARY MEDICATION (Acetaminophen (Tylenol) 650 MG) PO PRN (08:15)
[2020-04-23] MEDS ORDERED: LIDOCAINE TOP SCH (08:15)
[2020-04-23] MEDS: IPRATROPIUM/ALBUTEROL SULFATE 4 GM INH INH SCH ×3 (09:00→21:00)
[2020-04-23] MEDS ORDERED: MEROPENEM 500MG 500 MG in SODIUM CHLORIDE 0.9% 50ML 50 ML IV SCH (09:00)
[2020-04-23] MEDS: TRELEGY INH SCH (09:00)
[2020-04-23] MEDS: AMLODIPINE BESYLATE 10 MG TAB PO SCH (09:00)
[2020-04-23] MEDS: ESCITALOPRAM OXALATE 10 MG TAB PO SCH (09:33)
[2020-04-23] MEDS: ASPIRIN 81 MG CHEW TAB PO SCH (09:33)
[2020-04-23] MEDS: CLOPIDOGREL BISULFATE 75 MG TAB PO SCH (09:34)
[2020-04-23] MEDS: FAMOTIDINE 20 MG TAB PO SCH (09:34)
[2020-04-23] MEDS: SEVELAMER CARBONATE 800 MG TAB PO SCH ×2 (09:34→17:41)
[2020-04-23] MEDS ORDERED: SODIUM CHLORIDE 0.9% 250ML 250 ML ONE (09:48)
[2020-04-23] MEDS: ALBUTEROL/IPRATROPIUM 3 ML NEB NEB SCH ×3 (10:16→20:49)
[2020-04-23] MEDS ORDERED: SODIUM CHLORIDE 0.9% 1000ML 2,000 ML ONE (10:33)
[2020-04-23] MEDS: ACETAMINOPHEN 325 MG TAB PO PRN (11:07)
[2020-04-23] MEDS: INSULIN GLARGINE 100 UNITS/ML VIAL SQ SCH (14:13)
[2020-04-23] MEDS: MEROPENEM 500MG/ NS 50ML 50 ML IV SCH (14:13)
[2020-04-23] MEDS: ATORVASTATIN 20 MG TAB PO SCH (22:00)
[2020-04-24] VITALS (9 sets, daily range): BP systolic 112–158; BP diastolic 65–89
[2020-04-24] MEDS: ALBUTEROL/IPRATROPIUM 3 ML NEB NEB SCH ×6 (00:58→19:05)
[2020-04-24] MEDS: SEVELAMER CARBONATE 800 MG TAB PO SCH ×4 (01:54→21:00)
[2020-04-24 05:39] LABS: BASOPHILS % 0.6 % (0.0-1.0); EOSINOPHILS # (AUTO) 0.1 (0.0-0.4); EOSINOPHILS % 1.5 % (0.0-6.0); HEMATOCRIT 26.7 % (34.2-44.1); HEMOGLOBIN 8.6 g/dL (12.0-16.0); LYMPHOCYTES # (AUTO) 0.9 (1.0-3.2); LYMPHOCYTES % 13.5 % (18.0-39.1); MEAN CORPUSCULAR HEMOGLOBIN 32.2 pg (28-32); MEAN CORPUSCULAR HGB CONC 32.2 g/dL (31-35); MONOCYTES % 14.7 % (4.4-11.3); NEUTROPHILS # (AUTO) 4.7 (2.1-6.9); NEUTROPHILS % 69.3 % (38.7-80.0); PLATELET COUNT 304 x10e3/uL (140-360); RED BLOOD COUNT 2.67 x10e6/uL (3.6-5.1); RED CELL DISTRIBUTION WIDTH 15.9 % (11.7-14.4)
[2020-04-24 06:00] LABS: ANION GAP 20.2 mmol/L (8-16); CALCIUM 9.4 mg/dL (8.4-10.2); CREATININE, SERUM 5.52 mg/dL (0.57-1.11); POTASSIUM 5.2 mmol/L (3.5-5.1)
[2020-04-24] MEDS: MEROPENEM 500MG/ NS 50ML 50 ML IV SCH (07:29)
[2020-04-24] MEDS: IPRATROPIUM/ALBUTEROL SULFATE 4 GM INH INH SCH ×3 (08:09→21:00)
[2020-04-24] MEDS: TRELEGY INH SCH (09:00)
[2020-04-24] MEDS: CLOPIDOGREL BISULFATE 75 MG TAB PO SCH (09:03)
[2020-04-24] MEDS: ASPIRIN 81 MG CHEW TAB PO SCH (09:03)
[2020-04-24] MEDS: ESCITALOPRAM OXALATE 10 MG TAB PO SCH (09:03)
[2020-04-24] MEDS: CARVEDILOL 3.125 MG TAB PO SCH ×2 (09:03→21:00)
[2020-04-24] MEDS: AMLODIPINE BESYLATE 10 MG TAB PO SCH (09:03)
[2020-04-24] MEDS: VANCOMYCIN 1GM/NS 250 ML 250 ML IV SCH (09:03)
[2020-04-24] MEDS: FAMOTIDINE 20 MG TAB PO SCH (09:03)
[2020-04-24] MEDS: INSULIN GLARGINE 100 UNITS/ML VIAL SQ SCH (09:05)
[2020-04-24] MEDS ORDERED: SODIUM CHLORIDE 0.9% 1000ML 2,000 ML ONE (09:17)
[2020-04-24] MEDS: EPOETIN ALFA-EPBX 10,000 UNIT/ML VIAL SC SCH (12:13)
[2020-04-24] MEDS: ATORVASTATIN 20 MG TAB PO SCH (21:00)
[2020-04-25] VITALS (7 sets, daily range): BP systolic 147–172; BP diastolic 57–74
[2020-04-25] MEDS: ALBUTEROL/IPRATROPIUM 3 ML NEB NEB SCH ×7 (03:00→23:45)
[2020-04-25] MEDS: MEROPENEM 500MG/ NS 50ML 50 ML IV SCH (06:00)
[2020-04-25] MEDS: ATORVASTATIN 20 MG TAB PO SCH ×2 (06:21→21:43)
[2020-04-25] MEDS: IPRATROPIUM/ALBUTEROL SULFATE 4 GM INH INH SCH ×3 (06:38→20:25)
[2020-04-25] MEDS: VANCOMYCIN 1GM/NS 250 ML 250 ML IV SCH (08:29)
[2020-04-25] MEDS: TRELEGY INH SCH (08:29)
[2020-04-25] MEDS: CARVEDILOL 3.125 MG TAB PO SCH ×2 (08:29→21:42)
[2020-04-25] MEDS: FAMOTIDINE 20 MG TAB PO SCH (08:30)
[2020-04-25] MEDS: CLOPIDOGREL BISULFATE 75 MG TAB PO SCH (08:30)
[2020-04-25] MEDS: ESCITALOPRAM OXALATE 10 MG TAB PO SCH (08:30)
[2020-04-25] MEDS: AMLODIPINE BESYLATE 10 MG TAB PO SCH (08:30)
[2020-04-25] MEDS: SEVELAMER CARBONATE 800 MG TAB PO SCH ×3 (08:30→21:43)
[2020-04-25] MEDS: ASPIRIN 81 MG CHEW TAB PO SCH (08:30)
[2020-04-25] MEDS: INSULIN GLARGINE 100 UNITS/ML VIAL SQ SCH (08:31)
[2020-04-26] VITALS (9 sets, daily range): BP systolic 115–162; BP diastolic 58–104
[2020-04-26] MEDS: ALBUTEROL/IPRATROPIUM 3 ML NEB NEB SCH ×7 (04:00→23:00)
[2020-04-26] MEDS: MEROPENEM 500MG/ NS 50ML 50 ML IV SCH (05:08)
[2020-04-26] MEDS: IPRATROPIUM/ALBUTEROL SULFATE 4 GM INH INH SCH ×3 (07:34→19:56)
[2020-04-26] MEDS: TRELEGY INH SCH ×2 (08:55→09:00)
[2020-04-26] MEDS: ASPIRIN 81 MG CHEW TAB PO SCH (08:55)
[2020-04-26] MEDS: VANCOMYCIN 1GM/NS 250 ML 250 ML IV SCH (08:55)
[2020-04-26] MEDS: FAMOTIDINE 20 MG TAB PO SCH (08:56)
[2020-04-26] MEDS: SEVELAMER CARBONATE 800 MG TAB PO SCH ×3 (08:56→20:54)
[2020-04-26] MEDS: CARVEDILOL 3.125 MG TAB PO SCH ×2 (08:56→20:55)
[2020-04-26] MEDS: ESCITALOPRAM OXALATE 10 MG TAB PO SCH (08:56)
[2020-04-26] MEDS: CLOPIDOGREL BISULFATE 75 MG TAB PO SCH (08:56)
[2020-04-26] MEDS: AMLODIPINE BESYLATE 10 MG TAB PO SCH (08:56)
[2020-04-26] MEDS: INSULIN GLARGINE 100 UNITS/ML VIAL SQ SCH (08:57)
[2020-04-26] MEDS ORDERED: SODIUM CHLORIDE 0.9% 1000ML 2,000 ML IV PRN (10:45)
[2020-04-26] MEDS: EPOETIN ALFA-EPBX 10,000 UNIT/ML VIAL SC SCH (12:15)
[2020-04-26] MEDS: ACETAMINOPHEN 325 MG TAB PO PRN ×2 (12:16→19:23)
[2020-04-26] MEDS: ATORVASTATIN 20 MG TAB PO SCH (20:52)
[2020-04-27 01:13] VITALS: BP 103/103
[2020-04-27] MEDS: ACETAMINOPHEN 325 MG TAB PO PRN (01:27)
[2020-04-27] MEDS: ALBUTEROL/IPRATROPIUM 3 ML NEB NEB SCH ×4 (02:58→15:15)
[2020-04-27] MEDS: MEROPENEM 500MG/ NS 50ML 50 ML IV SCH (05:38)
[2020-04-27 05:49] VITALS: BP 117/56
[2020-04-27 08:42] VITALS: BP 128/59
[2020-04-27 08:53] VITALS: BP 128/59
[2020-04-27] MEDS: TRELEGY INH SCH (08:58)
[2020-04-27] MEDS: ASPIRIN 81 MG CHEW TAB PO SCH (08:58)
[2020-04-27] MEDS: FAMOTIDINE 20 MG TAB PO SCH (08:58)
[2020-04-27] MEDS: CLOPIDOGREL BISULFATE 75 MG TAB PO SCH (08:58)
[2020-04-27] MEDS: AMLODIPINE BESYLATE 10 MG TAB PO SCH (08:58)
[2020-04-27] MEDS: CARVEDILOL 3.125 MG TAB PO SCH (08:58)
[2020-04-27] MEDS: ESCITALOPRAM OXALATE 10 MG TAB PO SCH (08:58)
[2020-04-27] MEDS: SEVELAMER CARBONATE 800 MG TAB PO SCH ×2 (08:59→14:30)
[2020-04-27] MEDS: IPRATROPIUM/ALBUTEROL SULFATE 4 GM INH INH SCH (09:00)
[2020-04-27] MEDS: INSULIN GLARGINE 100 UNITS/ML VIAL SQ SCH (09:15)
[2020-04-27 13:00] VITALS: BP 131/92
== END 2020-04-27 15:38 | DRG 177 ==
LOC: ER 00:20 → ERHOLD 03:20 → MED/SURG2 05:41
PROC: 5A1D70Z Performance of Urinary Filtration, Intermittent, Less than 6 Hours Per Day (ICD-10-PCS; principal; 2020-04-23)
PROC: 5A1D70Z Performance of Urinary Filtration, Intermittent, Less than 6 Hours Per Day (ICD-10-PCS; 2020-04-24)
PROC: 5A1D70Z Performance of Urinary Filtration, Intermittent, Less than 6 Hours Per Day (ICD-10-PCS; 2020-04-26)
DX: J15.6 Pneumonia due to other Gram-negative bacteria (principal); I50.33 Acute on chronic diastolic (congestive) heart failure; N18.6 End stage renal disease; I13.2 Hypertensive heart and chronic kidney disease with heart failure and with stage 5 chronic kidney disease, or end stage renal disease; J44.0 Chronic obstructive pulmonary disease with (acute) lower respiratory infection; Z99.2 Dependence on renal dialysis; Z87.891 Personal history of nicotine dependence; E11.22 Type 2 diabetes mellitus with diabetic chronic kidney disease; Z86.73 Personal history of transient ischemic attack (TIA), and cerebral infarction without residual deficits; R09.02 Hypoxemia; I25.10 Atherosclerotic heart disease of native coronary artery without angina pectoris; Z95.5 Presence of coronary angioplasty implant and graft; Z85.038 Personal history of other malignant neoplasm of large intestine; Z90.49 Acquired absence of other specified parts of digestive tract; D63.1 Anemia in chronic kidney disease; Z20.822 Contact with and (suspected) exposure to COVID-19
CPT/HCPCS: 36415; 71045; 71046; 80048; 80053; 80202; 82948; 83605; 83880; 84484; 85025; 86704; 86706; 87040; 87340; 93005; 94640; 94664; 97139; 99284; J0692; J1815; J3370; J7030; J7050; U0002

== ENCOUNTER 2020-07-30 00:26 | Emergency (ER) | payer MEDICARE, OTHER ==
[~2020-07-30] VITALS: Ht 165.1 cm; Wt 59.0 kg
[2020-07-30 01:40] LABS: BASOPHILS # (AUTO) 0.1 (0.0-0.1); BASOPHILS % 0.5 % (0.0-1.0); EOSINOPHILS % 0.3 % (0.0-6.0); HEMATOCRIT 25.4 % (34.2-44.1); HEMOGLOBIN 7.6 g/dL (12.0-16.0); LYMPHOCYTES # (AUTO) 0.8 (1.0-3.2); LYMPHOCYTES % 6.2 % (18.0-39.1); MEAN CORPUSCULAR HEMOGLOBIN 25.9 pg (28-32); MEAN CORPUSCULAR HGB CONC 29.9 g/dL (31-35); MEAN CORPUSCULAR VOLUME 86.4 fL (81-99); MONOCYTES # (AUTO) 1.4 (0.2-0.8); MONOCYTES % 10.8 % (4.4-11.3); NEUTROPHILS # (AUTO) 10.8 (2.1-6.9); NEUTROPHILS % 81.5 % (38.7-80.0); PLATELET COUNT 530 x10e3/uL (140-360); RED BLOOD COUNT 2.94 x10e6/uL (3.6-5.1); RED CELL DISTRIBUTION WIDTH 19.3 % (11.7-14.4)
[2020-07-30 01:51] LABS: ALBUMIN 2.6 g/dL (3.5-5.0); ALBUMIN/GLOBULIN RATIO 0.7 (0.8-2.0); ANION GAP 16.1 mmol/L (8-16); CALCIUM 9.2 mg/dL (8.4-10.2); CREATININE, SERUM 3.56 mg/dL (0.57-1.11); POTASSIUM 4.1 mmol/L (3.5-5.1)
[2020-07-30 01:58] LABS: CREATINE KINASE MB 0.5 ng/mL (0-5.0)
[2020-07-30 04:59] VITALS: BP 149/66
== END 2020-07-30 05:45 | disposition home or self-care (01) ==
LOC: ER 01:24
DX: R10.31 Right lower quadrant pain (principal); R11.2 Nausea with vomiting, unspecified; C78.7 Secondary malignant neoplasm of liver and intrahepatic bile duct; I12.0 Hypertensive chronic kidney disease with stage 5 chronic kidney disease or end stage renal disease; E11.22 Type 2 diabetes mellitus with diabetic chronic kidney disease; N18.6 End stage renal disease; Z99.2 Dependence on renal dialysis; D64.9 Anemia, unspecified; Z85.038 Personal history of other malignant neoplasm of large intestine; Z95.5 Presence of coronary angioplasty implant and graft; J44.9 Chronic obstructive pulmonary disease, unspecified
CPT/HCPCS: 36415; 71045; 74177; 80053; 82550; 82553; 83690; 84484; 85025; 93005; 99284

== ENCOUNTER 2020-08-11 12:15 | Inpatient (IN) | payer MEDICARE ==
[~2020-08-11] VITALS: Ht 165.1 cm; Wt 59.0 kg
[2020-08-11] MEDS ORDERED: SODIUM CHLORIDE 0.9% 1000ML 1,000 ML IV STA (12:57)
[2020-08-11 13:25] LABS: CLARITY,URINE CLEAR (CLEAR); COLOR,URINE YELLOW (YELLOW); KETONES,URINE NEGATIVE (NEGATIVE); LEUKOCYTE ESTERASE ,URINE NEGATIVE (NEGATIVE); NITRITE,URINE NEGATIVE (NEGATIVE); PROTEIN,URINE DIPSTICK >=300 (NEGATIVE); URINE UROBILINOGEN 0.2 mg/dL (0.2 - 1)
[2020-08-11 13:56] LABS: BASOPHILS # (AUTO) 0.1 (0.0-0.1); BASOPHILS % 0.3 % (0.0-1.0); EOSINOPHILS % 0.2 % (0.0-6.0); HEMATOCRIT 35.2 % (34.2-44.1); HEMOGLOBIN 10.6 g/dL (12.0-16.0); LYMPHOCYTES # (AUTO) 0.8 (1.0-3.2); MEAN CORPUSCULAR HEMOGLOBIN 26.7 pg (28-32); MEAN CORPUSCULAR HGB CONC 30.1 g/dL (31-35); MEAN CORPUSCULAR VOLUME 88.7 fL (81-99); MONOCYTES # (AUTO) 1.6 (0.2-0.8); MONOCYTES % 9.5 % (4.4-11.3); NEUTROPHILS # (AUTO) 13.8 (2.1-6.9); NEUTROPHILS % 84.3 % (38.7-80.0); PLATELET COUNT 561 x10e3/uL (140-360); RED BLOOD COUNT 3.97 x10e6/uL (3.6-5.1); RED CELL DISTRIBUTION WIDTH 20.1 % (11.7-14.4)
[2020-08-11 14:05] LABS: BACTERIA,URINE MODERATE /HPF; EPITHELIAL CELLS,URINE MANY /LPF; RBC,URINE 0-5 /HPF (0-5)
[2020-08-11 14:13] LABS: INR 1.13; PARTIAL THROMBOPLASTIN TIME 32.4 seconds (23.8-35.5); PROTHROMBIN TIME 15.2 seconds (11.9-14.5)
[2020-08-11 14:22] LABS: ALBUMIN 2.9 g/dL (3.5-5.0); ALBUMIN/GLOBULIN RATIO 0.7 (0.8-2.0); ANION GAP 20.7 mmol/L (8-16); CALCIUM 10.4 mg/dL (8.4-10.2); CREATININE, SERUM 3.74 mg/dL (0.57-1.11); POTASSIUM 4.7 mmol/L (3.5-5.1)
[2020-08-11 14:23] LABS: B-TYPE NATRIURETIC PEPTIDE2 2348.1 pg/mL (0-100)
[2020-08-11 14:31] LABS: CREATINE KINASE MB 0.6 ng/mL (0-5.0)
[2020-08-11] MEDS ORDERED: Vancomycin IV 1 GM in SODIUM CHLORIDE 0.9% 250ML 250 ML IV ONE (18:30)
[2020-08-11] MEDS ORDERED: CEFTRIAXONE 1 GM in SODIUM CHLORIDE 0.9% 50ML 50 ML IV SCH (18:30)
[2020-08-11] MEDS ORDERED: ONDANSETRON HCL INJ 2MG/ML 2ML 2 MG/ML VIAL IV PRN (19:00)
[2020-08-11] MEDS: CEFEPIME 1 GM in SODIUM CHLORIDE 0.9% 50ML 50 ML IV SCH (19:06)
[2020-08-11] MEDS ORDERED: HYDROCODONE/APAP 5MG-325MG TAB PO PRN (19:15)
[2020-08-11] MEDS ORDERED: CLONIDINE HCL 0.2 MG TAB PO PRN (19:15)
[2020-08-11] MEDS ORDERED: DOCUSATE SODIUM 100 MG CAP PO PRN (19:15)
[2020-08-11 21:05] VITALS: BP 121/58
[2020-08-11] MEDS: SEVELAMER CARBONATE 800 MG TAB PO SCH (21:57)
[2020-08-11] MEDS: CARVEDILOL 3.125 MG TAB PO SCH (21:57)
[2020-08-11] MEDS: ATORVASTATIN 40 MG TAB PO SCH (21:57)
[2020-08-11] MEDS ORDERED: SODIUM CHLORIDE 0.9% 250ML 250 ML ONE (22:12)
[2020-08-11 22:40] VITALS: BP 121/58
[2020-08-12] VITALS (8 sets, daily range): BP systolic 124–154; BP diastolic 55–65
[2020-08-12 03:09] LABS: CREATINE KINASE MB 0.8 ng/mL (0-5.0)
[2020-08-12 05:01] LABS: BASOPHILS % 0.3 % (0.0-1.0); EOSINOPHILS # (AUTO) 0.1 (0.0-0.4); EOSINOPHILS % 0.4 % (0.0-6.0); HEMATOCRIT 26.8 % (34.2-44.1); LYMPHOCYTES # (AUTO) 0.7 (1.0-3.2); LYMPHOCYTES % 4.4 % (18.0-39.1); MEAN CORPUSCULAR HEMOGLOBIN 26.7 pg (28-32); MEAN CORPUSCULAR HGB CONC 29.9 g/dL (31-35); MEAN CORPUSCULAR VOLUME 89.3 fL (81-99); MONOCYTES # (AUTO) 1.9 (0.2-0.8); MONOCYTES % 11.8 % (4.4-11.3); NEUTROPHILS % 82.2 % (38.7-80.0); PLATELET COUNT 555 x10e3/uL (140-360); RED CELL DISTRIBUTION WIDTH 20.5 % (11.7-14.4)
[2020-08-12 05:30] LABS: ALBUMIN 2.4 g/dL (3.5-5.0); ALBUMIN/GLOBULIN RATIO 0.7 (0.8-2.0); CALCIUM 9.3 mg/dL (8.4-10.2); CREATININE, SERUM 4.24 mg/dL (0.57-1.11)
[2020-08-12 08:24] LABS: LYMPHOCYTES % (MANUAL) 3 % (19-48); MONOCYTES % (MANUAL) 10 % (3.4-9.0); NEUTROPHILS % (MANUAL) 87 % (40-74)
[2020-08-12] MEDS: CARVEDILOL 3.125 MG TAB PO SCH ×2 (08:30→20:36)
[2020-08-12] MEDS ORDERED: SODIUM CHLORIDE 0.9% 1000ML 2,000 ML ONE (08:41)
[2020-08-12] MEDS ORDERED: CLOPIDOGREL BISULFATE 75 MG TAB PO SCH (09:00)
[2020-08-12] MEDS ORDERED: ASPIRIN 81 MG CHEW TAB PO SCH (09:00)
[2020-08-12] MEDS: AMLODIPINE BESYLATE 10 MG TAB PO SCH (09:00)
[2020-08-12] MEDS: SEVELAMER CARBONATE 800 MG TAB PO SCH ×3 (09:00→20:36)
[2020-08-12] MEDS: ESCITALOPRAM OXALATE 10 MG TAB PO SCH (15:26)
[2020-08-12] MEDS: FAMOTIDINE 20 MG TAB PO SCH (15:27)
[2020-08-12] MEDS: CEFEPIME 1 GM in SODIUM CHLORIDE 0.9% 50ML 50 ML IV SCH (15:28)
[2020-08-12] MEDS: ATORVASTATIN 40 MG TAB PO SCH (20:36)
[2020-08-13] VITALS: BP 130/64
[2020-08-13 04:00] VITALS: BP 146/60
[2020-08-13 08:30] VITALS: BP 127/51
[2020-08-13 08:38] VITALS: BP 127/51
[2020-08-13] MEDS: ESCITALOPRAM OXALATE 10 MG TAB PO SCH (09:11)
[2020-08-13] MEDS: FAMOTIDINE 20 MG TAB PO SCH (09:11)
[2020-08-13] MEDS: AMLODIPINE BESYLATE 10 MG TAB PO SCH (09:11)
[2020-08-13] MEDS: CARVEDILOL 3.125 MG TAB PO SCH (09:12)
[2020-08-13] MEDS: SEVELAMER CARBONATE 800 MG TAB PO SCH (09:14)
[2020-08-13 12:52] VITALS: BP 118/54
== END 2020-08-13 16:23 | disposition hospice, inpatient (51) | DRG 871 ==
LOC: ER 12:58 → ERHOLD 19:00 → MED/SURG3 20:23
PROVIDERS: ADMIT Internal Medicine; ATTEND Internal Medicine
PROC: 5A1D70Z Performance of Urinary Filtration, Intermittent, Less than 6 Hours Per Day (ICD-10-PCS; principal; 2020-08-12)
DX: A41.9 Sepsis, unspecified organism (principal); J15.6 Pneumonia due to other Gram-negative bacteria; I50.33 Acute on chronic diastolic (congestive) heart failure; N18.6 End stage renal disease; G93.41 Metabolic encephalopathy; N39.0 Urinary tract infection, site not specified; C78.7 Secondary malignant neoplasm of liver and intrahepatic bile duct; C78.00 Secondary malignant neoplasm of unspecified lung; I13.2 Hypertensive heart and chronic kidney disease with heart failure and with stage 5 chronic kidney disease, or end stage renal disease; E87.1 Hypo-osmolality and hyponatremia; J44.0 Chronic obstructive pulmonary disease with (acute) lower respiratory infection; I11.0 Hypertensive heart disease with heart failure; Z66 Do not resuscitate; Z51.5 Encounter for palliative care; Z87.891 Personal history of nicotine dependence; Z99.2 Dependence on renal dialysis; D63.1 Anemia in chronic kidney disease; E11.22 Type 2 diabetes mellitus with diabetic chronic kidney disease; Z79.84 Long term (current) use of oral hypoglycemic drugs; Z96.649 Presence of unspecified artificial hip joint; Z85.038 Personal history of other malignant neoplasm of large intestine; J44.9 Chronic obstructive pulmonary disease, unspecified; D50.0 Iron deficiency anemia secondary to blood loss (chronic)
CPT/HCPCS: 36415; 70450; 71250; 72125; 74176; 80053; 81001; 82140; 82550; 82553; 82948; 83605; 83690; 83735; 83880; 84484; 85025; 85610; 85730; 86705; 86707; 86850; 86900; 87040; 87086; 87350; 93005; 99284; J0692; J3370; J7030; J7050